=== PATIENT | female | born 1955 | race Two or more races ===

== ENCOUNTER → 2020-02-02 10:04 | Outpatient (BNVA) | payer OTHER, SELFPAY | PROVIDERS: PCP Internal Medicine; Referring Provider Internal Medicine; Visit Provider Hospitalist | DX: J45.30 Mild persistent asthma, uncomplicated (principal); C7A.090 Malignant carcinoid tumor of the bronchus and lung; G47.33 Obstructive sleep apnea (adult) (pediatric); R91.8 Other nonspecific abnormal finding of lung field; Z90.2 Acquired absence of lung [part of] | CPT/HCPCS: 99212 ==

== ENCOUNTER → 2020-03-13 11:39 | Outpatient (BNVA) | payer OTHER, SELFPAY | PROVIDERS: PCP Internal Medicine; Visit Provider Surgery | DX: Z76.89 Persons encountering health services in other specified circumstances (principal) ==

== ENCOUNTER → 2020-03-29 14:35 | Outpatient (BNVA) | payer OTHER, SELFPAY | PROVIDERS: PCP Internal Medicine; Visit Provider Hospitalist | DX: Z76.89 Persons encountering health services in other specified circumstances (principal) ==

== ENCOUNTER → 2020-04-03 14:12 | Outpatient (BNVA) | payer OTHER, SELFPAY | PROVIDERS: PCP Internal Medicine; Visit Provider Nurse Practitioner Gerontology ==

== ENCOUNTER → 2020-04-18 12:47 | Outpatient (BNVA) | payer OTHER, SELFPAY | PROVIDERS: PCP Internal Medicine; Visit Provider Nurse Practitioner ==

== ENCOUNTER 2020-05-07 11:03 | Outpatient (REF) | payer OTHER, SELFPAY ==
--- NOTE | ~2020-05-07 | XR_ITS ---
EXAMINATION: XR BILATERAL HIPS CLINICAL INFORMATION: Right hip pain. COMPARISON: 08/31/2018 sacroiliac joint x-ray. Left hip 03/13/2014. TECHNIQUE: Bilateral hips each 2 views. FINDINGS: RIGHT HIP: Normal alignment. Joint space is maintained. No fracture or dislocation. Visualized right hemipelvis is intact. LEFT HIP: Normal alignment. Mild superior joint space narrowing from mild arthritis. No fracture or dislocation. Visualized left hemipelvis is intact. XR/XR hips SNEHAL min 3V IMPRESSION: 1. No acute findings. 2. Mild left hip joint arthritis.
[2020-05-07 11:52] LABS: MANUAL DIFF FLAG NO
[2020-05-07 12:07] LABS: Basophils Percent Auto 0.4 % (0-2); Eosinophils Absolute Auto 0.4 X10*3/uL (0.0-0.4); Eosinophils Percent Auto 3.3 % (0-4); Hematocrit 38.1 % (37-47); Hemoglobin 12.3 g/dl (12.0-16.0); Imm Gran Abs Auto 0.05 X10*3/uL (0.00-0.03); Imm Gran Pct Auto 0.5 % (0.0-0.4); Lymphocytes Absolute Auto 4.7 X10*3/uL (1.2-4.9); Lymphocytes Percent Auto 43.3 % (20-40); Mean Corpuscular HGB Conc 32.3 g/dl (31.0-35.0); Mean Corpuscular Hemoglobin 27.5 pg (27.0-33.0); Mean Platelet Volume 10.5 fL (9.4-12.3); Monocytes Absolute Auto 0.6 X10*3/uL (0.1-1.2); Monocytes Percent Auto 5.6 % (2-11); Neutrophils Absolute Auto 5.2 X10*3/uL (2.0-8.3); Neutrophils Percent Auto 46.9 % (45-73); Platelet Count 416 X10*3/uL (160-400); Red Blood Count 4.48 X10*6/uL (4.20-5.50)
[2020-05-07 12:21] LABS: Alanine Aminotransferase 21 U/L (0-31); Alkaline Phosphatase 211 U/L (39-117); Anion Gap 14 (12-20); Aspartate Amino Transferase 34 U/L (5-31); Bilirubin Total 0.6 mg/dL (0.0-1.0); Blood Urea Nitrogen 11 mg/dL (9-16); Calcium 8.7 mg/dL (8.4-10.2); Carbon Dioxide 29 mmol/L (22-29); Chloride 100 mmol/L (96-108); Cholesterol 129 mg/dL; Estimated Glomerular Filt Rate > 60; Glucose Fasting 167 mg/dL (60-99); HDL Cholesterol 37 mg/dL; LDL Cholesterol Calculated 77 mg/dl; Potassium 4.1 mmol/L (3.3-5.1); Sodium 139 mmol/L (135-145); Total Protein 7.2 g/dL (6.5-8.0); Triglycerides 76 mg/dL
[2020-05-07 12:46] LABS: TSH reflex Free T4 1.91 uIU/mL (0.32-4.0)
== END 2020-05-07 11:04 | disposition home or self-care (01) ==
LOC: HO.LAB 11:03
PROVIDERS: PCP Internal Medicine; Referring Provider Nurse Practitioner Gerontology; Visit Provider Internal Medicine
DX: E11.65 Type 2 diabetes mellitus with hyperglycemia (principal); I10 Essential (primary) hypertension; M25.551 Pain in right hip; M25.552 Pain in left hip; I25.10 Atherosclerotic heart disease of native coronary artery without angina pectoris; D3A.00 Benign carcinoid tumor of unspecified site; E78.00 Pure hypercholesterolemia, unspecified; E66.01 Morbid (severe) obesity due to excess calories; Z68.41 Body mass index [BMI] 40.0-44.9, adult; Z79.4 Long term (current) use of insulin
CPT/HCPCS: 36415; 73522; 80053; 80061; 84443; 85025

== ENCOUNTER 2020-05-13 11:37 | Outpatient (REF) | payer OTHER, SELFPAY ==
[2020-05-13 12:33] LABS: Creatinine Urine 116.94 mg/dL; Microalbum/Creatinine Ratio Ur 5.1 ug/mg cr
== END 2020-05-13 11:38 | disposition home or self-care (01) ==
LOC: HO.LNP 11:37
PROVIDERS: Nurse Practitioner Gerontology; Visit Provider Internal Medicine
DX: E11.42 Type 2 diabetes mellitus with diabetic polyneuropathy (principal)
CPT/HCPCS: 82043

== ENCOUNTER → 2020-05-16 10:39 | Outpatient (BNVA) | payer OTHER, SELFPAY | PROVIDERS: PCP Internal Medicine; Visit Provider Nurse Practitioner Gerontology | DX: E11.42 Type 2 diabetes mellitus with diabetic polyneuropathy (principal); E11.65 Type 2 diabetes mellitus with hyperglycemia; E66.01 Morbid (severe) obesity due to excess calories; Z68.41 Body mass index [BMI] 40.0-44.9, adult; I10 Essential (primary) hypertension; E78.5 Hyperlipidemia, unspecified; Z79.4 Long term (current) use of insulin | CPT/HCPCS: 99212 ==

== ENCOUNTER → 2020-05-24 10:12 | Outpatient (BNVA) | payer OTHER, SELFPAY | PROVIDERS: PCP Internal Medicine; Visit Provider Nurse Practitioner | DX: Z13.89 Encounter for screening for other disorder (principal) | CPT/HCPCS: 99212 ==

== ENCOUNTER 2020-05-27 13:44 | Outpatient (REF) | payer OTHER, SELFPAY ==
--- NOTE | 2020-05-27 16:23 | PFT_ITS ---
Forced vital capacity is slightly decreased. FEV1, [id number] and MVV are normal. Post bronchodilator therapy, there is no change. Total lung capacity and residual volume normal. Diffusion capacity normal. CONCLUSION: Normal pulmonary function test. There is no evidence of obstructive or restrictive pulmonary disorder. Servando Kelley MD MSB/MODL / [id number]
== END 2020-05-27 13:45 | disposition home or self-care (01) ==
LOC: HO.RESP 13:44
PROVIDERS: PCP Internal Medicine; Visit Provider Hospitalist
DX: J45.40 Moderate persistent asthma, uncomplicated (principal); E11.42 Type 2 diabetes mellitus with diabetic polyneuropathy; G47.33 Obstructive sleep apnea (adult) (pediatric); R07.9 Chest pain, unspecified; R91.8 Other nonspecific abnormal finding of lung field; K21.9 Gastro-esophageal reflux disease without esophagitis; Z79.4 Long term (current) use of insulin; Z79.899 Other long term (current) drug therapy; Z87.891 Personal history of nicotine dependence
CPT/HCPCS: 94060; 94727; 94729; 99212

== ENCOUNTER 2020-05-30 13:59 | Outpatient (REF) | payer OTHER, SELFPAY ==
--- NOTE | ~2020-05-30 | XR_ITS ---
EXAMINATION: XR CHEST CLINICAL INFORMATION: Chest pain unspecified. COMPARISON: Chest radiographs 11/04/2017, 01/08/2017, CT chest noncontrast 05/16/2019. TECHNIQUE: 2 views of the chest were obtained. FINDINGS: There is no pneumothorax or pneumomediastinum. No lobar segmental airspace consolidation. Tapering right cardiophrenic angle is stable from prior studies, likely areolar tissue on CT. There is no lobar or segmental airspace consolidation or groundglass opacity. The costophrenic sulci are clear. The heart is normal in size. The hilar and mediastinal contours are unremarkable. There are degenerative changes again seen thoracic spine. XR/XR chest 2V IMPRESSION: No acute intrathoracic disease.
== END 2020-05-30 14:00 | disposition home or self-care (01) ==
LOC: HO.XRAY 13:59
PROVIDERS: Visit Provider Hospitalist
DX: R07.9 Chest pain, unspecified (principal)
CPT/HCPCS: 71046

== ENCOUNTER → 2020-06-13 09:50 | Outpatient (BNVA) | payer OTHER, SELFPAY | PROVIDERS: PCP Internal Medicine; Visit Provider Nurse Practitioner ==

== ENCOUNTER 2020-07-18 10:37 | Outpatient (REF) | payer MEDICARE, MEDICAID, SELFPAY ==
--- NOTE | ~2020-07-18 | XR_ITS ---
EXAMINATION: XR, KNEE, RIGHT CLINICAL INFORMATION: Pain in right knee, primary osteoarthritis of knee. COMPARISON: Left knee 04/19/2017 TECHNIQUE: 3 views each knee. FINDINGS: RIGHT KNEE: There is mild reduction in medial and patellofemoral compartment joint space with periarticular enthesophytes. Also visualized is a moderate anterosuperior patellar enthesophyte. No abnormal joint effusion or loose body is seen. No bony erosive changes are seen. No visible acute fracture or dislocation. LEFT KNEE: There is mild reduction in medial and patellofemoral compartment joint space with mild periarticular spurring. A moderate-sized anterior superior patellar enthesophyte is seen. No abnormal joint effusion or loose body is seen. There is new focal lucency along the medial patella likely artifact or osteopenia. No acute fracture or dislocation. XR/XR knee RT 3V IMPRESSION: Mild degenerative arthritic changes medial and patellofemoral compartments both knees without any loose bodies. There is no joint effusion. Incidental finding of mild wedge-shaped lucency along the lateral patella on sunrise view, new since previous study 07/13/2016. Question focal osteopenia versus artifact.
--- NOTE | ~2020-07-18 | XR_ITS ---
EXAMINATION: XR, KNEE, RIGHT CLINICAL INFORMATION: Pain in right knee, primary osteoarthritis of knee. COMPARISON: Left knee 04/19/2017 TECHNIQUE: 3 views each knee. FINDINGS: RIGHT KNEE: There is mild reduction in medial and patellofemoral compartment joint space with periarticular enthesophytes. Also visualized is a moderate anterosuperior patellar enthesophyte. No abnormal joint effusion or loose body is seen. No bony erosive changes are seen. No visible acute fracture or dislocation. LEFT KNEE: There is mild reduction in medial and patellofemoral compartment joint space with mild periarticular spurring. A moderate-sized anterior superior patellar enthesophyte is seen. No abnormal joint effusion or loose body is seen. There is new focal lucency along the medial patella likely artifact or osteopenia. No acute fracture or dislocation. XR/XR knee LT 3V IMPRESSION: Mild degenerative arthritic changes medial and patellofemoral compartments both knees without any loose bodies. There is no joint effusion. Incidental finding of mild wedge-shaped lucency along the lateral patella on sunrise view, new since previous study 07/13/2016. Question focal osteopenia versus artifact.
== END 2020-07-18 10:38 | disposition home or self-care (01) ==
LOC: HO.XRAY 10:37
PROVIDERS: PCP Internal Medicine; Visit Provider Internal Medicine
DX: M17.0 Bilateral primary osteoarthritis of knee (principal)
CPT/HCPCS: 73562

== ENCOUNTER → 2020-07-19 10:27 | Outpatient (BNVA) | payer MEDICARE, MEDICAID, SELFPAY | PROVIDERS: PCP Internal Medicine; Visit Provider Surgery | DX: C7A.090 Malignant carcinoid tumor of the bronchus and lung (principal); Z79.899 Other long term (current) drug therapy; Z90.2 Acquired absence of lung [part of] | CPT/HCPCS: 99212 ==

== ENCOUNTER → 2020-07-25 08:38 | Outpatient (BNVA) | payer MEDICARE, MEDICAID, SELFPAY | PROVIDERS: PCP Internal Medicine; Visit Provider Nurse Practitioner Gerontology | CPT/HCPCS: Q3014 ==

== ENCOUNTER 2020-07-31 10:21 | Outpatient (REF) | payer MEDICARE, MEDICAID, SELFPAY ==
[2020-07-31 11:36] LABS: MANUAL DIFF FLAG NO
[2020-07-31 11:49] LABS: Basophils Absolute Auto 0.1 X10*3/uL (0.0-0.2); Basophils Percent Auto 0.5 % (0-2); Eosinophils Absolute Auto 0.5 X10*3/uL (0.0-0.4); Eosinophils Percent Auto 4.5 % (0-4); Hemoglobin 12.7 g/dl (12.0-16.0); Imm Gran Abs Auto 0.03 X10*3/uL (0.00-0.03); Imm Gran Pct Auto 0.3 % (0.0-0.4); Lymphocytes Absolute Auto 4.5 X10*3/uL (1.2-4.9); Lymphocytes Percent Auto 44.6 % (20-40); Mean Corpuscular HGB Conc 31.8 g/dl (31.0-35.0); Mean Corpuscular Volume 85.1 fL (80-98); Mean Platelet Volume 11.5 fL (9.4-12.3); Monocytes Absolute Auto 0.7 X10*3/uL (0.1-1.2); Monocytes Percent Auto 6.5 % (2-11); Neutrophils Absolute Auto 4.4 X10*3/uL (2.0-8.3); Neutrophils Percent Auto 43.6 % (45-73); Platelet Count 379 X10*3/uL (160-400); Red Cell Distribution Width 13.2 % (11.0-16.0); White Blood Count 10.2 X10*3/uL (4.8-10.8)
[2020-07-31 12:07] LABS: Estimated Average Glucose 203 mg/dL; Hemoglobin A1c % 8.7 %
[2020-07-31 13:15] LABS: TSH reflex Free T4 1.54 uIU/mL (0.32-4.0)
[2020-07-31 13:19] LABS: Alanine Aminotransferase 29 U/L (0-31); Alkaline Phosphatase 250 U/L (39-117); Anion Gap 15 (12-20); Aspartate Amino Transferase 46 U/L (5-31); Bilirubin Total 0.5 mg/dL (0.0-1.0); Blood Urea Nitrogen 14 mg/dL (9-16); Calcium 9.3 mg/dL (8.4-10.2); Carbon Dioxide 28 mmol/L (22-29); Chloride 99 mmol/L (96-108); Cholesterol 124 mg/dL; Estimated Glomerular Filt Rate > 60; Glucose Fasting 220 mg/dL (60-99); HDL Cholesterol 33 mg/dL; LDL Cholesterol Calculated 67 mg/dl; Potassium 4.5 mmol/L (3.3-5.1); Sodium 137 mmol/L (135-145); Total Protein 7.1 g/dL (6.5-8.0); Triglycerides 122 mg/dL
[2020-07-31 14:37] LABS: Glucose Urine UA NEG (NEG); Leukocyte Esterase Urine NEG (NEG); Nitrite Urine NEG (NEG); Specific Gravity - Urine 1.015 (1.005-1.025); Urine Blood NEG (NEG); Urine Ketones NEG (NEG); Urine Protein NEG (NEG-TRACE)
[2020-07-31 14:38] LABS: Appearance Urine HAZY; Color Urine YELLOW
[2020-07-31 15:04] LABS: Creatinine Urine 149.27 mg/dL; Microalbum/Creatinine Ratio Ur 5.3 ug/mg cr
== END 2020-07-31 10:22 | disposition home or self-care (01) ==
LOC: HO.LAB 10:21
PROVIDERS: Nurse Practitioner Gerontology; PCP Internal Medicine; Visit Provider Internal Medicine
DX: E11.65 Type 2 diabetes mellitus with hyperglycemia (principal); E11.42 Type 2 diabetes mellitus with diabetic polyneuropathy; Z79.4 Long term (current) use of insulin; I10 Essential (primary) hypertension; I25.10 Atherosclerotic heart disease of native coronary artery without angina pectoris; C7A.090 Malignant carcinoid tumor of the bronchus and lung; K21.9 Gastro-esophageal reflux disease without esophagitis; E78.00 Pure hypercholesterolemia, unspecified; E66.01 Morbid (severe) obesity due to excess calories; Z68.41 Body mass index [BMI] 40.0-44.9, adult
CPT/HCPCS: 36415; 80053; 80061; 81003; 82043; 83036; 84443; 85025

== ENCOUNTER 2020-09-24 12:52 | Outpatient (REF) | payer MEDICARE, MEDICAID, SELFPAY ==
--- NOTE | ~2020-09-24 | CT_ITS ---
EXAMINATION: CT CHEST WITHOUT CONTRAST CLINICAL INFORMATION: Other nonspecific abnormal finding lung field COMPARISON: Previous chest CT scans most recent October 2019 TECHNIQUE: Multidetector volumetric CT imaging of the chest was done. Axial MIP volume rendering provided. Sagittal and coronal reformatted images were obtained. This CT examination was performed using dose optimization techniques as appropriate, variously including the following: *Automated exposure control *Adjustment of mA and/or kV according to patient size (this includes techniques or standardized protocols for targeted exams where dose is matched to indication/reason for exam; i.e. 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 There are postsurgical changes from right middle lobe lobectomy. There are subtle areas of increased peripheral interstitial markings seen in the upper lobes. This is unchanged from previous exam October 2019. There is mild scarring or atelectasis seen in the right lower lobe adjacent to vertebral body bony osteophyte and traction bronchiolectasis that is unchanged. There is scarring or subsegmental atelectasis in the inferior segment of the lingula that is unchanged. There is a 2 mm left upper lobe nodule near the pleural fissure axial image 153 series 5 that is stable. There is a 3 mm peripheral or subpleural right upper lobe nodule axial image 191 series 5 that is stable. The previously identified left lower lobe nodule is not appreciated. The lungs are otherwise clear. No new pulmonary nodule is seen. MEDIASTINUM: The visualized thyroid gland is unremarkable. There are small mediastinal lymph nodes. No enlarged lymph nodes are seen. The heart does not appear enlarged. There is mild coronary artery calcification. There is no pericardial effusion. PLEURA: There is no pleural effusion. No pleural mass or thickening. AXILLA: No lymphadenopathy. UPPER ABDOMEN: Unremarkable. OSSEOUS STRUCTURES: There are degenerative changes of the spine. CT/CT chest wo con IMPRESSION: Limited exam due to artifact from respiratory motion. Stable postsurgical changes from right middle lobe lobectomy. Stable small upper lobe nodules. Previously identified small left lower lobe nodule is not appreciated.
== END 2020-09-24 12:53 | disposition home or self-care (01) ==
LOC: HO.CT 12:52
PROVIDERS: PCP Internal Medicine; Visit Provider Hospitalist
DX: R91.8 Other nonspecific abnormal finding of lung field (principal)
CPT/HCPCS: 71250

== ENCOUNTER 2020-09-27 09:36 | Outpatient (REF) | payer MEDICARE, MEDICAID, SELFPAY ==
[2020-09-27 11:05] LABS: MANUAL DIFF FLAG NO
[2020-09-27 11:13] LABS: Basophils Absolute Auto 0.1 X10*3/uL (0.0-0.2); Basophils Percent Auto 0.7 % (0-2); Eosinophils Absolute Auto 0.5 X10*3/uL (0.0-0.4); Eosinophils Percent Auto 4.8 % (0-4); Hemoglobin 13.3 g/dl (12.0-16.0); Imm Gran Abs Auto 0.04 X10*3/uL (0.00-0.03); Imm Gran Pct Auto 0.4 % (0.0-0.4); Lymphocytes Absolute Auto 3.7 X10*3/uL (1.2-4.9); Lymphocytes Percent Auto 38.3 % (20-40); Mean Corpuscular HGB Conc 31.7 g/dl (31.0-35.0); Mean Corpuscular Hemoglobin 27.3 pg (27.0-33.0); Mean Corpuscular Volume 86.1 fL (80-98); Mean Platelet Volume 10.9 fL (9.4-12.3); Monocytes Absolute Auto 0.5 X10*3/uL (0.1-1.2); Monocytes Percent Auto 5.5 % (2-11); Neutrophils Absolute Auto 4.9 X10*3/uL (2.0-8.3); Neutrophils Percent Auto 50.3 % (45-73); Platelet Count 410 X10*3/uL (160-400); Red Blood Count 4.88 X10*6/uL (4.20-5.50); White Blood Count 9.7 X10*3/uL (4.8-10.8)
[2020-09-27 11:48] LABS: Alanine Aminotransferase 23 U/L (0-31); Albumin Level 4.4 g/dL (3.5-5.0); Alkaline Phosphatase 270 U/L (39-117); Anion Gap 16 (12-20); Aspartate Amino Transferase 46 U/L (5-31); Bilirubin Direct 0.3 mg/dL (0.0-0.5); Bilirubin Total 0.6 mg/dL (0.0-1.0); Blood Urea Nitrogen 10 mg/dL (9-16); Calcium 10.1 mg/dL (8.4-10.2); Carbon Dioxide 29 mmol/L (22-29); Chloride 98 mmol/L (96-108); Estimated Glomerular Filt Rate > 60; Glucose Random 176 mg/dL (60-115); Potassium 4.7 mmol/L (3.3-5.1); Sodium 138 mmol/L (135-145); Total Protein 7.9 g/dL (6.5-8.0)
[2020-09-27 11:57] LABS: Erythrocyte Sedimentation Rate 40 MM/HR (0-20)
[2020-10-05 13:01] LABS: Chromogranin A 525 ng/mL (ADULTS: <311)
== END 2020-09-27 09:37 | disposition home or self-care (01) ==
LOC: HO.LAB 09:36
PROVIDERS: PCP Internal Medicine; Visit Provider Hospitalist
DX: G47.33 Obstructive sleep apnea (adult) (pediatric) (principal); J45.40 Moderate persistent asthma, uncomplicated; R07.1 Chest pain on breathing; C7A.090 Malignant carcinoid tumor of the bronchus and lung
CPT/HCPCS: 36415; 80048; 80076; 85025; 85652; 86316; 99212

== ENCOUNTER → 2020-11-08 10:21 | Outpatient (BNVA) | payer MEDICARE, MEDICAID, SELFPAY | PROVIDERS: PCP Internal Medicine; Visit Provider Surgery | DX: C7A.090 Malignant carcinoid tumor of the bronchus and lung (principal); Z79.899 Other long term (current) drug therapy; Z87.891 Personal history of nicotine dependence; Z90.2 Acquired absence of lung [part of] | CPT/HCPCS: 99212 ==

== ENCOUNTER 2020-11-12 11:41 | Outpatient (REF) | payer MEDICARE, SELFPAY ==
[2020-11-12 12:41] LABS: Alanine Aminotransferase 32 U/L (0-31); Albumin Level 4.2 g/dL (3.5-5.0); Alkaline Phosphatase 250 U/L (39-117); Anion Gap 12 (12-20); Aspartate Amino Transferase 53 U/L (5-31); Blood Urea Nitrogen 11 mg/dL (9-16); Calcium 9.3 mg/dL (8.4-10.2); Carbon Dioxide 30 mmol/L (22-29); Chloride 101 mmol/L (96-108); Cholesterol 124 mg/dL; Estimated Glomerular Filt Rate > 60; Glucose Fasting 163 mg/dL (60-99); HDL Cholesterol 38 mg/dL; LDL Cholesterol Calculated 73 mg/dl; Potassium 4.5 mmol/L (3.3-5.1); Sodium 138 mmol/L (135-145); Total Protein 7.5 g/dL (6.5-8.0); Triglycerides 66 mg/dL
[2020-11-12 13:01] LABS: Glucose Urine UA NEG (NEG); Leukocyte Esterase Urine 1+ (NEG); Nitrite Urine NEG (NEG); Specific Gravity - Urine <= 1.005 (1.005-1.025); UACC Culture Trigger YES; Urine Blood NEG (NEG); Urine Ketones NEG (NEG); Urine Protein NEG (NEG-TRACE)
[2020-11-12 13:10] LABS: Appearance Urine HAZY; Color Urine YELLOW
[2020-11-12 13:12] LABS: Bacteria Urine TRACE /LPF; RBC Urine 0-2 /HPF (0); Squamous Epithelial Cell Urine 3+ /LPF
[2020-11-12 13:44] LABS: Creatinine Urine 78.97 mg/dL; Microalbum/Creatinine Ratio Ur 6.3 ug/mg cr
[2020-11-12 14:31] LABS: Estimated Average Glucose 192 mg/dL; Hemoglobin A1c % 8.3 %
== END 2020-11-12 11:42 | disposition home or self-care (01) ==
LOC: HO.LAB 11:41
PROVIDERS: Absent Provider Internal Medicine; PCP Internal Medicine; Visit Provider Nurse Practitioner Gerontology
DX: E11.42 Type 2 diabetes mellitus with diabetic polyneuropathy (principal); E11.65 Type 2 diabetes mellitus with hyperglycemia; Z79.4 Long term (current) use of insulin
CPT/HCPCS: 36415; 80053; 80061; 81001; 81003; 82043; 83036; 87086

== ENCOUNTER 2020-11-20 09:16 | Outpatient (REF) | payer MEDICARE, SELFPAY ==
--- NOTE | ~2020-11-20 | XR_ITS ---
EXAMINATION: XR SHOULDER, LEFT CLINICAL INFORMATION: Left shoulder pain. COMPARISON: Left shoulder radiographs dated 11/02/2013. TECHNIQUE: AP external rotation, Grashey, scapular Y, and axillary views of the left shoulder. FINDINGS: Inferior subluxation of the humeral head, which may be related to capsular laxity. Findings are similar when compared to the prior examination. No acute fracture. Acromioclavicular marginal osteophytes, slightly increased. Glenohumeral joint space narrowing with subchondral sclerosis, subchondral cystic change, and marginal osteophytes, slightly progressed. Lobulated calcification associated with the distal supraspinatus tendon measuring up to 2.1 cm and increased when compared to the prior examination. XR/XR shoulder LT min 2V IMPRESSION: Moderate acromioclavicular and glenohumeral osteoarthritis, slightly progressed. Prominent supraspinatus calcific tendinitis, increased when compared to the prior examination.
== END 2020-11-20 09:17 | disposition home or self-care (01) ==
LOC: HO.XRAY 09:16
PROVIDERS: PCP Internal Medicine; Visit Provider Internal Medicine
DX: M25.512 Pain in left shoulder (principal)
CPT/HCPCS: 73030

== ENCOUNTER → 2020-12-03 11:00 | Outpatient (BNVA) | payer MEDICARE, SELFPAY | PROVIDERS: PCP Internal Medicine; Visit Provider Hospitalist | DX: G47.33 Obstructive sleep apnea (adult) (pediatric) (principal); J45.40 Moderate persistent asthma, uncomplicated; C7A.090 Malignant carcinoid tumor of the bronchus and lung | CPT/HCPCS: 99212 ==

== ENCOUNTER → 2020-12-30 11:06 | Outpatient (BNVA) | payer MEDICARE, SELFPAY | PROVIDERS: PCP Internal Medicine; Visit Provider Nurse Practitioner | DX: K59.04 Chronic idiopathic constipation (principal); K21.9 Gastro-esophageal reflux disease without esophagitis; Z98.890 Other specified postprocedural states | CPT/HCPCS: Q3014 ==

== ENCOUNTER → 2021-01-14 07:13 | Outpatient (BNVA) | payer MEDICARE, SELFPAY | PROVIDERS: PCP Internal Medicine; Visit Provider Nurse Practitioner Gerontology | DX: E11.42 Type 2 diabetes mellitus with diabetic polyneuropathy (principal); E11.65 Type 2 diabetes mellitus with hyperglycemia; E78.5 Hyperlipidemia, unspecified; I10 Essential (primary) hypertension; E66.01 Morbid (severe) obesity due to excess calories; Z68.41 Body mass index [BMI] 40.0-44.9, adult; Z79.4 Long term (current) use of insulin | CPT/HCPCS: 82947; 99212 ==

== ENCOUNTER → 2021-01-24 10:52 | Outpatient (BNVA) | payer MEDICARE, MEDICAID, SELFPAY | PROVIDERS: PCP Internal Medicine; Visit Provider Orthopaedic Surgery | DX: M19.012 Primary osteoarthritis, left shoulder (principal); M17.0 Bilateral primary osteoarthritis of knee; E11.42 Type 2 diabetes mellitus with diabetic polyneuropathy | CPT/HCPCS: 99212 ==

== ENCOUNTER 2021-01-30 10:32 | Outpatient (REF) | payer MEDICARE, SELFPAY ==
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
== END 2021-01-30 10:33 | disposition home or self-care (01) ==
LOC: HO.XRAY 10:32
PROVIDERS: PCP Internal Medicine; Visit Provider Nurse Practitioner Acute Care
DX: M54.2 Cervicalgia (principal); E11.42 Type 2 diabetes mellitus with diabetic polyneuropathy; E66.01 Morbid (severe) obesity due to excess calories; Z68.41 Body mass index [BMI] 40.0-44.9, adult; Z87.891 Personal history of nicotine dependence
CPT/HCPCS: 72052; 73000; 73060

== ENCOUNTER 2021-02-13 09:37 | Outpatient (REF) | payer MEDICARE, SELFPAY ==
[2021-02-13 09:51] LABS: MANUAL DIFF FLAG NO
[2021-02-13 10:16] LABS: Basophils Absolute Auto 0.1 X10*3/uL (0.0-0.2); Basophils Percent Auto 0.6 % (0-2); Eosinophils Absolute Auto 0.5 X10*3/uL (0.0-0.4); Eosinophils Percent Auto 4.5 % (0-4); Hematocrit 38.8 % (37.0-47.0); Hemoglobin 12.5 g/dl (12.0-16.0); Imm Gran Abs Auto 0.03 X10*3/uL (0.00-0.03); Imm Gran Pct Auto 0.3 % (0.0-0.4); Lymphocytes Absolute Auto 4.6 X10*3/uL (1.2-4.9); Lymphocytes Percent Auto 42.6 % (20-40); Mean Corpuscular HGB Conc 32.2 g/dl (31.0-35.0); Mean Corpuscular Hemoglobin 27.7 pg (27.0-33.0); Mean Platelet Volume 10.6 fL (9.4-12.3); Monocytes Absolute Auto 0.7 X10*3/uL (0.1-1.2); Monocytes Percent Auto 6.7 % (2-11); Neutrophils Absolute Auto 4.9 x10*3/uL (2.0-8.3); Neutrophils Percent Auto 45.3 % (45-73); Platelet Count 329 X10*3/uL (160-400); Red Blood Count 4.51 X10*6/uL (4.20-5.50); Red Cell Distribution Width 13.6 % (11.0-16.0); White Blood Count 10.9 X10*3/uL (4.8-10.8)
[2021-02-13 10:25] LABS: Estimated Average Glucose 177 mg/dL; Hemoglobin A1c % 7.8 %
[2021-02-13 10:39] LABS: Appearance Urine HAZY; Color Urine ORANGE; Glucose Urine UA NEG (NEG); Leukocyte Esterase Urine 1+ (NEG); Nitrite Urine NEG (NEG); Specific Gravity - Urine 1.015 (1.005-1.025); UACC Culture Trigger YES; Urine Blood NEG (NEG); Urine Ketones NEG (NEG); Urine Protein NEG (NEG-TRACE)
[2021-02-13 10:50] LABS: Alanine Aminotransferase 20 U/L (0-31); Alkaline Phosphatase 198 U/L (39-117); Anion Gap 14 (12-20); Aspartate Amino Transferase 41 U/L (5-31); Bilirubin Total 0.9 mg/dL (0.0-1.0); Blood Urea Nitrogen 16 mg/dL (9-16); Calcium 9.7 mg/dL (8.4-10.2); Carbon Dioxide 29 mmol/L (22-29); Chloride 102 mmol/L (96-108); Cholesterol 121 mg/dL; Estimated Glomerular Filt Rate > 60; Glucose Fasting 145 mg/dL (60-99); HDL Cholesterol 33 mg/dL; LDL Cholesterol Calculated 72 mg/dl; Potassium 4.4 mmol/L (3.3-5.1); Sodium 141 mmol/L (135-145); Total Protein 7.3 g/dL (6.5-8.0); Triglycerides 84 mg/dL
[2021-02-13 10:57] LABS: Bacteria Urine 1+ /LPF; Mucus Urine 1+ /LPF; RBC Urine 0 /HPF (0); Squamous Epithelial Cell Urine 2+ /LPF
[2021-02-13 11:06] LABS: Creatinine Urine 137.47 mg/dL; Microalbum/Creatinine Ratio Ur 4.3 ug/mg cr
[2021-02-13 11:12] LABS: TSH reflex Free T4 1.84 uIU/mL (0.32-4.0)
== END 2021-02-13 09:38 | disposition home or self-care (01) ==
LOC: HO.LAB 09:37
PROVIDERS: PCP Internal Medicine; Visit Provider Internal Medicine
DX: E78.00 Pure hypercholesterolemia, unspecified (principal); E11.9 Type 2 diabetes mellitus without complications; E55.9 Vitamin D deficiency, unspecified; I10 Essential (primary) hypertension
CPT/HCPCS: 36415; 80053; 80061; 81001; 81003; 82043; 82306; 83036; 84443; 85025; 87086

== ENCOUNTER → 2021-02-18 08:07 | Outpatient (BNVA) | payer MEDICARE, SELFPAY | PROVIDERS: PCP Internal Medicine; Visit Provider Nurse Practitioner Gerontology | DX: G47.33 Obstructive sleep apnea (adult) (pediatric) (principal); J45.40 Moderate persistent asthma, uncomplicated; C7A.090 Malignant carcinoid tumor of the bronchus and lung; E11.42 Type 2 diabetes mellitus with diabetic polyneuropathy; E11.65 Type 2 diabetes mellitus with hyperglycemia; E78.5 Hyperlipidemia, unspecified; E66.01 Morbid (severe) obesity due to excess calories; I10 Essential (primary) hypertension; Z79.4 Long term (current) use of insulin; Z68.41 Body mass index [BMI] 40.0-44.9, adult | CPT/HCPCS: 99212; Q3014 ==

== ENCOUNTER 2021-02-24 11:10 | Outpatient (RCR) | payer MEDICARE, SELFPAY ==
--- NOTE | 2021-02-24 14:21 | MHC.PT.EP ---
[facility] [place] Office [place] Office [place] Office [address]ivel Davis [address] [phone] F: [phone] F: [phone] F: [phone] F: [phone] Physical Therapy Plan of Care Date of Evaluation: Date of Surgery: n/a Diagnosis: OA of L shoulder and B knee Assessment: Patient is a 65 year old female presenting to PT with complaints of pain in her B knees L>R. Pt reports onset of pain began about a year ago due to insidious onset. She presents today with impairments in pain, knee ROM, and knee strength. Pt's current occupation is none, with baseline physical activities including ambulation, ADLs, squatting. 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 Clinical presentation today is most consistent with signs and sx associated with L knee pain and pt will benefit from skilled PT to address the following problems and impairments noted upon evaluation: pain, knee ROM, and knee strength. These problems limit the patient with the following functional activities: ambulation, squatting, and ADLs. The prescribed treatment plan of care is medically necessary. Co-morbidities of hx cancer - carcinoid tumor, COPD, CAD, HTN, T2DM were identified and taken into considerations of plan of care. Pt was educated on HEP, role of PT, prognosis, POC. Frequency and Duration: The patient will be seen 2 x week x 4 weeks Short Term Goals: Pt will demonstrate compliance with use of her AD in 2 visits for improved safety with ambulation. Pt will demonstrate improved L knee ROM to equal B in 2 weeks. Pt will demonstrate improved knee strength by 1/3 MMT in 2 weeks. Senior Care Goals: Pt will demonstrate self reports of feeling more stable when ambulating with AD in 4 weeks for decreased risk of falls. Pt will demonstrate improved LEFI score by 9 points in 4 weeks for improved functional mobility. Pt will demonstrate self reports of improved ability to squat in 4 weeks for improved tolerance to ADLs. Treatment Plan: Modalities to reduce pain, spasms and effusion. Manual therapy to restore motion and function. Therapeutic exercise to improve strength and flexibility. Neuromuscular re-education for posture and balance. Therapeutic activities to return to functional activities of daily living. Electronically signed by: Cathy Antunez, PT, DPT, ATC Please sign and return to therapist. Thank you for your referral.
--- NOTE | 2021-05-13 13:48 | MHC.PT.DC ---
[facility] [place] Office [place] Office [place] Office [address] [phone] F: [phone] F: [phone] F: [phone] F: [phone] Physical Therapy Discharge Report Diagnosis: OA of L shoulder and B knee Date of Surgery: n/a Date of Evaluation: 02/24/21 Date of Discharge: 05/13/21 Treatments to Date: 1 Cancellations to Date: 2 No Shows to Date: 3 Discharge Status: Visit Non-compliance Discharge Summary: Pt has failed to comply with [facility] attendance policy and no showed/cancelled all appts since eval. Her current status is unknown at this time. Electronically signed by: Cathy Antunez, PT, DPT, ATC Please sign and return to therapist. Thank you for your referral.
== END 2021-05-13 13:48 | disposition home or self-care (01) ==
LOC: HO.PT 11:10
PROVIDERS: PCP Internal Medicine; Visit Provider Orthopaedic Surgery
DX: M17.0 Bilateral primary osteoarthritis of knee (principal)
CPT/HCPCS: 97162

== ENCOUNTER → 2021-04-15 11:12 | Outpatient (BNVA) | payer OTHER, MEDICAID, SELFPAY | PROVIDERS: PCP Internal Medicine; Visit Provider Hospitalist ==

== ENCOUNTER 2021-04-16 09:10 | Outpatient (REF) | payer MEDICARE, SELFPAY ==
--- NOTE | ~2021-04-16 | XR_ITS ---
EXAMINATION: XR CHEST CLINICAL INFORMATION: Chest pain COMPARISON: None TECHNIQUE: 2 views of the chest were obtained. FINDINGS: The lungs are well-expanded and clear of acute process. The heart size and pulmonary vascularity is normal. There is mild spondylosis dorsal spine. No lytic process. XR/XR chest 2V IMPRESSION: Unremarkable chest exam.
== END 2021-04-16 09:11 | disposition home or self-care (01) ==
LOC: HO.XRAY 09:10
PROVIDERS: PCP Internal Medicine; Visit Provider Hospitalist
DX: R07.9 Chest pain, unspecified (principal)
CPT/HCPCS: 71046

== ENCOUNTER → 2021-05-07 09:18 | Outpatient (BNVA) | payer MEDICARE, SELFPAY | PROVIDERS: PCP Internal Medicine; Visit Provider Hospitalist | DX: J45.40 Moderate persistent asthma, uncomplicated (principal); R91.8 Other nonspecific abnormal finding of lung field; G47.33 Obstructive sleep apnea (adult) (pediatric); C7A.090 Malignant carcinoid tumor of the bronchus and lung; G89.12 Acute post-thoracotomy pain | CPT/HCPCS: 99212 ==

== ENCOUNTER 2021-06-04 06:40 | Outpatient (REF) | payer MEDICARE, SELFPAY ==
[2021-06-04 07:32] LABS: Basophils Absolute Auto 0.1 X10*3/uL (0.0-0.2); Basophils Percent Auto 0.8 % (0-2); Eosinophils Absolute Auto 0.4 X10*3/uL (0.0-0.4); Eosinophils Percent Auto 3.9 % (0-4); Hematocrit 38.7 % (37.0-47.0); Hemoglobin 12.4 g/dl (12.0-16.0); Imm Gran Abs Auto 0.04 X10*3/uL (0.00-0.03); Imm Gran Pct Auto 0.4 % (0.0-0.4); Lymphocytes Absolute Auto 5.5 X10*3/uL (1.2-4.9); Lymphocytes Percent Auto 49.1 % (20-40); MANUAL DIFF FLAG SCAN; Mean Corpuscular Hemoglobin 27.5 pg (27.0-33.0); Mean Corpuscular Volume 85.8 fL (80.0-98.0); Mean Platelet Volume 10.6 fL (9.4-12.3); Monocytes Absolute Auto 0.7 X10*3/uL (0.1-1.2); Monocytes Percent Auto 6.1 % (2-11); Neutrophils Absolute Auto 4.4 x10*3/uL (2.0-8.3); Neutrophils Percent Auto 39.7 % (45-73); Platelet Count 380 X10*3/uL (160-400); Red Blood Count 4.51 X10*6/uL (4.20-5.50); Red Cell Distribution Width 13.5 % (11.0-16.0); SCAN SMEAR FLAG 1; White Blood Count 11.2 X10*3/uL (4.8-10.8)
[2021-06-04 07:38] LABS: Estimated Average Glucose 180 mg/dL; Hemoglobin A1c % 7.9 %
[2021-06-04 07:50] LABS: SLIDE REVIEW VERIFIED
[2021-06-04 08:03] LABS: Alanine Aminotransferase 22 U/L (0-31); Albumin Level 4.1 g/dL (3.5-5.0); Alkaline Phosphatase 191 U/L (39-117); Anion Gap 14 (12-20); Aspartate Amino Transferase 41 U/L (5-31); Bilirubin Total 0.9 mg/dL (0.0-1.0); Blood Urea Nitrogen 13 mg/dL (9-16); Calcium 9.5 mg/dL (8.4-10.2); Carbon Dioxide 28 mmol/L (22-29); Chloride 98 mmol/L (96-108); Cholesterol 125 mg/dL; Estimated Glomerular Filt Rate > 60; Glucose Fasting 130 mg/dL (60-99); HDL Cholesterol 35 mg/dL; LDL Cholesterol Calculated 72 mg/dl; Potassium 4.3 mmol/L (3.3-5.1); Sodium 136 mmol/L (135-145); Total Protein 7.2 g/dL (6.5-8.0); Triglycerides 91 mg/dL
[2021-06-04 08:26] LABS: TSH reflex Free T4 4.28 uIU/mL (0.32-4.0)
[2021-06-04 09:27] LABS: Folate 18.5 ng/mL (> or = 4.0); Vitamin B12 247 pg/mL (200-900)
[2021-06-04 11:25] LABS: Appearance Urine CLEAR; Color Urine YELLOW; Glucose Urine UA NEG (NEG); Leukocyte Esterase Urine NEG (NEG); Nitrite Urine NEG (NEG); PH 5.5 (5.0-8.0); Specific Gravity - Urine 1.015 (1.005-1.025); Urine Blood NEG (NEG); Urine Ketones NEG (NEG); Urine Protein NEG (NEG-TRACE)
[2021-06-04 12:08] LABS: Creatinine Urine 88.59 mg/dL; Microalbumin Urine < 5.0 mg/L
[2021-06-04 12:40] LABS: Free T4 (Free Thyroxine) 1.05 ng/dL (0.71-1.85)
[2021-06-05 14:15] LABS: Vitamin D 25-OH Total 20.4 ng/mL (>30)
== END 2021-06-04 06:41 | disposition home or self-care (01) ==
LOC: HO.LAB 06:40
PROVIDERS: PCP Internal Medicine; Visit Provider Internal Medicine
DX: E78.00 Pure hypercholesterolemia, unspecified (principal); E55.9 Vitamin D deficiency, unspecified; E53.8 Deficiency of other specified B group vitamins; I10 Essential (primary) hypertension; E11.9 Type 2 diabetes mellitus without complications
CPT/HCPCS: 36415; 80053; 80061; 81003; 82043; 82306; 82607; 82746; 83036; 84439; 84443; 85025

== ENCOUNTER 2021-08-29 10:39 | Outpatient (REF) | payer OTHER, SELFPAY ==
--- NOTE | ~2021-08-29 | CT_ITS ---
EXAMINATION: CT CHEST WITHOUT CONTRAST CLINICAL INFORMATION: Malignant carcinoid tumor of the bronchus. COMPARISON: Chest x-ray 04/16/2021. CT chest 09/24/2020. TECHNIQUE: Multidetector volumetric CT imaging of the chest was done. Axial MIP volume rendering provided. Sagittal and coronal reformatted images were obtained. This CT examination was performed using dose optimization techniques as appropriate, variously including the following: *Automated exposure control *Adjustment of mA and/or kV according to patient size (this includes techniques or standardized protocols for targeted exams where dose is matched to indication/reason for exam; i.e. extremities or head) *Use of iterative reconstruction technique DLP: 412 mGy-cm. FINDINGS: The exam is limited due to breathing artifact. 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 LUNGS: The lungs are well expanded with mild atelectatic changes in the lingula. There is mild fine reticular interstitial thickening subpleural right upper lobe. There is a 2 mm nodule left upper lobe adjacent to the superior major fissure axial image 196/6, a 2 mm nodular pleural-based nodule right upper lobe axial image 246/6. No additional pulmonary nodules visualized. There are right middle lobe lobectomy changes, stable. MEDIASTINUM: The thyroid lobes are symmetrical and and normal. The central trachea and the bronchi are widely patent. Heart size is enlarged. The great vessels are normal caliber. There is no pericardial effusion. No abnormal-sized mediastinal or hilar lymph nodes seen. PLEURA: There is no pleural effusion. No pleural mass or thickening. AXILLA: Small shotty lymph nodes are seen in the axilla. The chest wall is unremarkable. UPPER ABDOMEN: Visualized liver, spleen, pancreas and bilateral adrenal glands unremarkable. OSSEOUS STRUCTURES: There is moderate spondylosis dorsal spine. No lytic or sclerotic process seen. CT/CT chest wo con IMPRESSION: Exam is significantly limited due to breathing artifact. The lung nodules are stable. Mild atelectatic changes seen in the lingula and subpleural reticular interstitial prominence right upper lobe are also stable. Fleischner guidelines were followed.
== END 2021-08-29 10:40 | disposition home or self-care (01) ==
LOC: HO.CT 10:39
PROVIDERS: PCP Internal Medicine; Visit Provider Hospitalist
DX: C7A.090 Malignant carcinoid tumor of the bronchus and lung (principal)
CPT/HCPCS: 71250

== ENCOUNTER 2021-09-11 09:36 | Outpatient (REF) | payer OTHER, SELFPAY ==
[2021-09-11 09:50] LABS: MANUAL DIFF FLAG NO
[2021-09-11 10:58] LABS: Basophils Absolute Auto 0.1 X10*3/uL (0.0-0.2); Basophils Percent Auto 0.8 % (0-2); Eosinophils Absolute Auto 0.5 X10*3/uL (0.0-0.4); Hematocrit 37.6 % (37.0-47.0); Hemoglobin 11.9 g/dl (12.0-16.0); Imm Gran Abs Auto 0.04 X10*3/uL (0.00-0.03); Imm Gran Pct Auto 0.4 % (0.0-0.4); Lymphocytes Absolute Auto 4.3 X10*3/uL (1.2-4.9); Lymphocytes Percent Auto 46.7 % (20-40); Mean Corpuscular HGB Conc 31.6 g/dl (31.0-35.0); Mean Corpuscular Volume 85.3 fL (80.0-98.0); Mean Platelet Volume 11.2 fL (9.4-12.3); Monocytes Absolute Auto 0.7 X10*3/uL (0.1-1.2); Monocytes Percent Auto 7.6 % (2-11); Neutrophils Absolute Auto 3.6 x10*3/uL (2.0-8.3); Neutrophils Percent Auto 39.5 % (45-73); Platelet Count 335 X10*3/uL (160-400); Red Blood Count 4.41 X10*6/uL (4.20-5.50); Red Cell Distribution Width 13.9 % (11.0-16.0); White Blood Count 9.2 X10*3/uL (4.8-10.8)
[2021-09-11 11:10] LABS: Estimated Average Glucose 174 mg/dL; Hemoglobin A1c % 7.7 %
[2021-09-11 11:18] LABS: Appearance Urine HAZY; Color Urine YELLOW; Glucose Urine UA NEG (NEG); Leukocyte Esterase Urine NEG (NEG); Nitrite Urine NEG (NEG); Urine Blood NEG (NEG); Urine Ketones NEG (NEG); Urine Protein NEG (NEG-TRACE)
[2021-09-11 11:35] LABS: Alanine Aminotransferase 21 U/L (0-31); Albumin Level 3.9 g/dL (3.5-5.0); Alkaline Phosphatase 220 U/L (39-117); Anion Gap 12 (12-20); Aspartate Amino Transferase 46 U/L (5-31); Bilirubin Total 0.6 mg/dL (0.0-1.0); Blood Urea Nitrogen 13 mg/dL (9-16); Calcium 8.9 mg/dL (8.4-10.2); Carbon Dioxide 28 mmol/L (22-29); Chloride 101 mmol/L (96-108); Cholesterol 133 mg/dL; Estimated Glomerular Filt Rate > 60; Glucose Fasting 159 mg/dL (60-99); HDL Cholesterol 39 mg/dL; LDL Cholesterol Calculated 76 mg/dl; Potassium 4.3 mmol/L (3.3-5.1); Sodium 137 mmol/L (135-145); Total Protein 6.9 g/dL (6.5-8.0); Triglycerides 93 mg/dL
[2021-09-11 11:44] LABS: Vitamin D 25-OH Total 49.5 ng/mL (>30)
[2021-09-11 12:01] LABS: Creatinine Urine 111.86 mg/dL; Microalbumin Urine < 5.0 mg/L
== END 2021-09-11 09:37 | disposition home or self-care (01) ==
LOC: HO.LAB 09:36
PROVIDERS: PCP Internal Medicine; Visit Provider Internal Medicine
DX: E55.9 Vitamin D deficiency, unspecified (principal); I10 Essential (primary) hypertension; E11.9 Type 2 diabetes mellitus without complications; E78.00 Pure hypercholesterolemia, unspecified
CPT/HCPCS: 36415; 80053; 80061; 81003; 82043; 82306; 83036; 85025

== ENCOUNTER → 2021-11-07 10:05 | Outpatient (BNVA) | payer MEDICARE, MEDICAID, SELFPAY | PROVIDERS: PCP Internal Medicine; Visit Provider Surgery | DX: C7A.090 Malignant carcinoid tumor of the bronchus and lung (principal); Z90.2 Acquired absence of lung [part of] | CPT/HCPCS: 99212 ==

== ENCOUNTER → 2021-11-10 14:34 | Outpatient (BNVA) | payer MEDICARE, MEDICAID, SELFPAY | PROVIDERS: PCP Internal Medicine; Visit Provider Hospitalist | DX: G47.33 Obstructive sleep apnea (adult) (pediatric) (principal); J45.40 Moderate persistent asthma, uncomplicated; C7A.090 Malignant carcinoid tumor of the bronchus and lung; G89.12 Acute post-thoracotomy pain | CPT/HCPCS: 99212 ==

== ENCOUNTER 2022-01-20 09:45 | Outpatient (REF) | payer MEDICARE, MEDICAID, SELFPAY ==
[2022-01-20 10:42] LABS: Basophils Absolute Auto 0.1 X10*3/uL (0.0-0.2); Basophils Percent Auto 0.9 % (0-2); Eosinophils Absolute Auto 0.5 X10*3/uL (0.0-0.4); Eosinophils Percent Auto 4.8 % (0-4); Hematocrit 39.5 % (37.0-47.0); Hemoglobin 12.5 g/dl (12.0-16.0); Imm Gran Abs Auto 0.04 X10*3/uL (0.00-0.03); Imm Gran Pct Auto 0.4 % (0.0-0.4); Lymphocytes Percent Auto 48.5 % (20-40); MANUAL DIFF FLAG SCAN; Mean Corpuscular HGB Conc 31.6 g/dl (31.0-35.0); Mean Corpuscular Hemoglobin 26.9 pg (27.0-33.0); Mean Corpuscular Volume 84.9 fL (80.0-98.0); Monocytes Absolute Auto 0.7 X10*3/uL (0.1-1.2); Monocytes Percent Auto 6.6 % (2-11); Neutrophils Percent Auto 38.8 % (45-73); Platelet Count 359 X10*3/uL (160-400); Red Blood Count 4.65 X10*6/uL (4.20-5.50); Red Cell Distribution Width 13.8 % (11.0-16.0); SCAN SMEAR FLAG 1; White Blood Count 10.3 X10*3/uL (4.8-10.8)
[2022-01-20 11:13] LABS: Estimated Average Glucose 183 mg/dL
[2022-01-20 11:14] LABS: SLIDE REVIEW VERIFIED
[2022-01-20 11:25] LABS: Alanine Aminotransferase 22 U/L (0-31); Albumin Level 3.9 g/dL (3.5-5.0); Alkaline Phosphatase 182 U/L (39-117); Anion Gap 13 (12-20); Aspartate Amino Transferase 43 U/L (5-31); Bilirubin Total 0.7 mg/dL (0.0-1.0); Blood Urea Nitrogen 11 mg/dL (9-16); Calcium 9.4 mg/dL (8.4-10.2); Carbon Dioxide 30 mmol/L (22-29); Chloride 99 mmol/L (96-108); Cholesterol 125 mg/dL; Estimated Glomerular Filt Rate > 60; Glucose Fasting 147 mg/dL (60-99); HDL Cholesterol 38 mg/dL; LDL Cholesterol Calculated 69 mg/dl; Potassium 4.2 mmol/L (3.3-5.1); Sodium 138 mmol/L (135-145); TSH reflex Free T4 3.12 uIU/mL (0.32-4.0); Total Protein 7.1 g/dL (6.5-8.0); Triglycerides 90 mg/dL; Vitamin D 25-OH Total 55.7 ng/mL (>30)
[2022-01-20 12:14] LABS: Appearance Urine Clear; Color Urine Yellow; Glucose Urine UA Negative (Negative); Leukocyte Esterase Urine Negative (Negative); Nitrite Urine Negative (Negative); Specific Gravity - Urine 1.015 (1.005-1.025); Urine Blood Negative (Negative); Urine Ketones Negative (Negative); Urine Protein Negative (Neg-Trace)
[2022-01-20 13:03] LABS: Creatinine Urine 110.57 mg/dL; Microalbumin Urine < 5.0 mg/L
== END 2022-01-20 09:46 | disposition home or self-care (01) ==
LOC: HO.LAB 09:45
PROVIDERS: PCP Internal Medicine; Visit Provider Internal Medicine
DX: E11.9 Type 2 diabetes mellitus without complications (principal); E55.9 Vitamin D deficiency, unspecified; I10 Essential (primary) hypertension; E78.00 Pure hypercholesterolemia, unspecified
CPT/HCPCS: 36415; 80053; 80061; 81003; 82043; 82306; 83036; 84443; 85025

== ENCOUNTER 2022-01-22 13:06 | Outpatient (REF) | payer MEDICARE, MEDICAID, SELFPAY ==
--- NOTE | ~2022-01-22 | XR_ITS ---
EXAMINATION: XR KNEE, LEFT CLINICAL INFORMATION: Left knee pain. COMPARISON: 07/18/2020 TECHNIQUE: Four views of the left knee. FINDINGS: There is no evidence of acute fracture or dislocation of the left knee. There is again noted to be narrowing of the medial joint space compartment with marginal spurring and sclerosis. The lateral joint space compartment appears maintained. There is degenerative change of the patellofemoral joint with marginal spurring and narrowing of the lateral facet space. Patella spurs at insertion of the quadriceps tendon is noted. Prominent vascular calcifications are seen. No significant effusion is seen on the provided imaging. XR/XR knee LT 3V IMPRESSION: Significant degenerative joint disease seen involving the medial joint space compartment and patellofemoral joint without significant change from 07/18/2020.
--- NOTE | ~2022-01-22 | XR_ITS ---
EXAMINATION: XR BILATERAL HIPS WITH AP PELVIS CLINICAL INFORMATION: Right hip pain COMPARISON: 05/07/2020 TECHNIQUE: AP view of the pelvis and single views of each hip were obtained. FINDINGS: The bones and soft tissues are normal. No fracture. Sacroiliac and hip joints are normal. Pubic symphysis is normal. No abnormal soft tissue calcifications. XR/XR hips SNEHAL min 3V IMPRESSION: Normal pelvis and hips.
== END 2022-01-22 13:07 | disposition home or self-care (01) ==
LOC: HO.XRAY 13:06
PROVIDERS: PCP Internal Medicine; Visit Provider Internal Medicine
DX: K31.84 Gastroparesis (principal); K59.04 Chronic idiopathic constipation; K21.9 Gastro-esophageal reflux disease without esophagitis; R19.7 Diarrhea, unspecified; M25.562 Pain in left knee; M25.551 Pain in right hip; M25.552 Pain in left hip
CPT/HCPCS: 73522; 73562; 99212

== ENCOUNTER 2022-02-17 12:00 | Outpatient (REF) | payer MEDICARE, MEDICAID, SELFPAY ==
--- NOTE | ~2022-02-17 | XR_ITS ---
EXAMINATION: XR KNEE, RIGHT XR TIBIA AND FIBULA, RIGHT CLINICAL INFORMATION: Pain in right knee. COMPARISON: None TECHNIQUE: 2 views right tibia and fibula and 3 views right knee. FINDINGS: RIGHT TIBIA AND FIBULA: There is no visible acute fracture, dislocation or subluxation seen. No bony erosive changes. The soft tissues are normal. RIGHT KNEE: There is mild loss of patellofemoral and medial compartment joint space with moderate superior patellar spurring. No loose bodies or bony erosive changes seen. There is mild suprapatellar joint effusion. There is a moderate size superior patellar enthesophyte. XR/XR tibia fibula RT 2V IMPRESSION: 1. Unremarkable right tibia and fibula exam. 2. Mild degenerative changes medial and patellofemoral compartment with moderate superior patellar spurring and mild suprapatellar joint effusion. No visible acute fracture or dislocation seen.
--- NOTE | ~2022-02-17 | XR_ITS ---
EXAMINATION: XR KNEE, RIGHT XR TIBIA AND FIBULA, RIGHT CLINICAL INFORMATION: Pain in right knee. COMPARISON: None TECHNIQUE: 2 views right tibia and fibula and 3 views right knee. FINDINGS: RIGHT TIBIA AND FIBULA: There is no visible acute fracture, dislocation or subluxation seen. No bony erosive changes. The soft tissues are normal. RIGHT KNEE: There is mild loss of patellofemoral and medial compartment joint space with moderate superior patellar spurring. No loose bodies or bony erosive changes seen. There is mild suprapatellar joint effusion. There is a moderate size superior patellar enthesophyte. XR/XR knee RT 3V IMPRESSION: 1. Unremarkable right tibia and fibula exam. 2. Mild degenerative changes medial and patellofemoral compartment with moderate superior patellar spurring and mild suprapatellar joint effusion. No visible acute fracture or dislocation seen.
== END 2022-02-17 12:01 | disposition home or self-care (01) ==
LOC: HO.XRAY 12:00
PROVIDERS: PCP Internal Medicine; Visit Provider Internal Medicine
DX: M25.561 Pain in right knee (principal); M79.604 Pain in right leg; Z91.81 History of falling
CPT/HCPCS: 73562; 73590

== ENCOUNTER → 2022-03-06 12:17 | Outpatient (BNVA) | payer MEDICARE, MEDICAID, SELFPAY | PROVIDERS: PCP Internal Medicine; Visit Provider Internal Medicine Endocrinology, Diabetes & Metabolism | DX: E11.42 Type 2 diabetes mellitus with diabetic polyneuropathy (principal); Z79.4 Long term (current) use of insulin | CPT/HCPCS: 82947; 99212 ==

== ENCOUNTER → 2022-03-20 10:29 | Outpatient (BNVA) | payer MEDICARE, MEDICAID, SELFPAY | PROVIDERS: PCP Internal Medicine; Visit Provider Hospitalist | DX: J45.40 Moderate persistent asthma, uncomplicated (principal); G47.33 Obstructive sleep apnea (adult) (pediatric); G89.12 Acute post-thoracotomy pain; R91.8 Other nonspecific abnormal finding of lung field; C7A.090 Malignant carcinoid tumor of the bronchus and lung | CPT/HCPCS: 99212 ==

== ENCOUNTER → 2022-04-01 09:28 | Outpatient (REF) | payer MEDICARE, MEDICAID, SELFPAY | LOC: HO.SL 09:28 | PROVIDERS: Visit Provider Hospitalist | DX: G47.33 Obstructive sleep apnea (adult) (pediatric) (principal) | CPT/HCPCS: 95806 ==

== ENCOUNTER → 2022-04-15 10:48 | Outpatient (BNVA) | payer MEDICARE, MEDICAID, SELFPAY | PROVIDERS: PCP Internal Medicine; Visit Provider Nurse Practitioner | DX: K59.04 Chronic idiopathic constipation (principal); K21.9 Gastro-esophageal reflux disease without esophagitis; K31.84 Gastroparesis; K58.0 Irritable bowel syndrome with diarrhea | CPT/HCPCS: 99212 ==

== ENCOUNTER 2022-04-29 09:45 | Outpatient (REF) | payer MEDICARE, MEDICAID, SELFPAY ==
[2022-04-29 10:08] LABS: MANUAL DIFF FLAG NO
[2022-04-29 10:50] LABS: Basophils Absolute Auto 0.1 X10*3/uL (0.0-0.2); Basophils Percent Auto 0.8 % (0-2); Eosinophils Absolute Auto 0.5 X10*3/uL (0.0-0.4); Eosinophils Percent Auto 5.2 % (0-4); Hematocrit 38.6 % (37.0-47.0); Hemoglobin 12.6 g/dl (12.0-16.0); Imm Gran Abs Auto 0.04 X10*3/uL (0.00-0.03); Imm Gran Pct Auto 0.4 % (0.0-0.4); Lymphocytes Absolute Auto 4.5 X10*3/uL (1.2-4.9); Lymphocytes Percent Auto 49.1 % (20-40); Mean Corpuscular HGB Conc 32.6 g/dl (31.0-35.0); Mean Corpuscular Hemoglobin 27.3 pg (27.0-33.0); Mean Corpuscular Volume 83.5 fL (80.0-98.0); Mean Platelet Volume 10.8 fL (9.4-12.3); Monocytes Absolute Auto 0.6 X10*3/uL (0.1-1.2); Monocytes Percent Auto 6.8 % (2-11); Neutrophils Absolute Auto 3.5 x10*3/uL (2.0-8.3); Neutrophils Percent Auto 37.7 % (45-73); Platelet Count 348 X10*3/uL (160-400); Red Blood Count 4.62 X10*6/uL (4.20-5.50); Red Cell Distribution Width 14.1 % (11.0-16.0); White Blood Count 9.2 X10*3/uL (4.8-10.8)
[2022-04-29 10:56] LABS: Estimated Average Glucose 166 mg/dL; Hemoglobin A1c % 7.4 %
[2022-04-29 11:31] LABS: Alanine Aminotransferase 17 U/L (0-31); Albumin Level 3.9 g/dL (3.5-5.0); Alkaline Phosphatase 181 U/L (39-117); Anion Gap 17 (12-20); Aspartate Amino Transferase 36 U/L (5-31); Bilirubin Total 0.9 mg/dL (0.0-1.0); Blood Urea Nitrogen 13 mg/dL (9-16); Carbon Dioxide 25 mmol/L (22-29); Chloride 104 mmol/L (96-108); Cholesterol 123 mg/dL; Estimated Glomerular Filt Rate > 60; Glucose Fasting 166 mg/dL (60-99); HDL Cholesterol 39 mg/dL; LDL Cholesterol Calculated 70 mg/dl; Potassium 4.5 mmol/L (3.3-5.1); Sodium 141 mmol/L (135-145); Total Protein 6.8 g/dL (6.5-8.0); Triglycerides 73 mg/dL
[2022-04-29 11:36] LABS: TSH reflex Free T4 2.29 uIU/mL (0.32-4.0); Vitamin D 25-OH Total 50.5 ng/mL (>30)
[2022-04-29 12:01] LABS: Appearance Urine Cloudy; Color Urine Yellow; Glucose Urine UA Negative (Negative); Leukocyte Esterase Urine Trace (Negative); Nitrite Urine Negative (Negative); Specific Gravity - Urine 1.015 (1.005-1.025); UMIC TRIGGER UACC YES; Urine Blood Negative (Negative); Urine Ketones Negative (Negative); Urine Protein Negative (Neg-Trace)
[2022-04-29 12:06] LABS: Bacteria Urine 1+ (None Seen); Hyaline Casts Urine 0-2 /LPF (0-2); RBC Urine 0-2 /HPF (0-2); Squamous Epithelial Cell Urine >20 /HPF (0-2); WBC Urine 0-5 /HPF (0-5)
[2022-04-29 12:40] LABS: Creatinine Urine 97.69 mg/dL; Microalbum/Creatinine Ratio Ur 5.1 ug/mg cr
== END 2022-04-29 09:46 | disposition home or self-care (01) ==
LOC: HO.LAB 09:45
PROVIDERS: PCP Internal Medicine; Visit Provider Internal Medicine
DX: E78.00 Pure hypercholesterolemia, unspecified (principal); R30.0 Dysuria; E55.9 Vitamin D deficiency, unspecified; E11.9 Type 2 diabetes mellitus without complications
CPT/HCPCS: 36415; 80053; 80061; 81001; 81003; 82043; 82306; 83036; 84443; 85025

== ENCOUNTER → 2022-05-29 11:41 | Outpatient (BNVA) | payer MEDICARE, MEDICAID, SELFPAY | PROVIDERS: PCP Internal Medicine; Visit Provider Nurse Practitioner | DX: Z01.818 Encounter for other preprocedural examination (principal); K59.04 Chronic idiopathic constipation; K21.9 Gastro-esophageal reflux disease without esophagitis; K31.84 Gastroparesis; E66.01 Morbid (severe) obesity due to excess calories; C7A.090 Malignant carcinoid tumor of the bronchus and lung; J45.50 Severe persistent asthma, uncomplicated; G47.33 Obstructive sleep apnea (adult) (pediatric); Z68.41 Body mass index [BMI] 40.0-44.9, adult | CPT/HCPCS: 99212 ==

== ENCOUNTER → 2022-06-05 10:12 | Outpatient (BNVA) | payer MEDICARE, MEDICAID, SELFPAY | PROVIDERS: PCP Internal Medicine; Visit Provider Hospitalist | DX: G47.33 Obstructive sleep apnea (adult) (pediatric) (principal); J45.40 Moderate persistent asthma, uncomplicated; R91.8 Other nonspecific abnormal finding of lung field; G89.12 Acute post-thoracotomy pain; C7A.090 Malignant carcinoid tumor of the bronchus and lung | CPT/HCPCS: 99212 ==

== ENCOUNTER 2022-07-29 10:32 | Outpatient (REF) | payer MEDICARE, MEDICAID, SELFPAY ==
--- NOTE | ~2022-07-29 | XR_ITS ---
EXAMINATION: XR CHEST CLINICAL INFORMATION: Bronchopneumonia. COMPARISON: None available. TECHNIQUE: 2 views of the chest were obtained. FINDINGS: The lungs are well-expanded and clear. There is bilateral parahilar bronchial wall thickening, likely airway disease. The heart size and pulmonary vascularity is normal. There is mild ventral spondylosis in the mid and lower dorsal spine. No aggressive lytic or sclerotic process seen. XR/XR chest 2V IMPRESSION: Unremarkable. No acute pneumonic process. Mild bronchial wall thickening and prominence, likely airway disease.
== END 2022-07-29 10:33 | disposition home or self-care (01) ==
LOC: HO.XRAY 10:32
PROVIDERS: PCP Internal Medicine; Visit Provider Nurse Practitioner Family
DX: J18.0 Bronchopneumonia, unspecified organism (principal); J45.40 Moderate persistent asthma, uncomplicated
CPT/HCPCS: 71046; 99212

== ENCOUNTER → 2022-08-04 14:19 | Outpatient (BNVA) | payer MEDICARE, MEDICAID, SELFPAY | PROVIDERS: PCP Internal Medicine; Visit Provider Internal Medicine Endocrinology, Diabetes & Metabolism | DX: E11.65 Type 2 diabetes mellitus with hyperglycemia (principal); E11.42 Type 2 diabetes mellitus with diabetic polyneuropathy; Z79.4 Long term (current) use of insulin | CPT/HCPCS: 82947; 83036; 99212 ==

== ENCOUNTER 2022-08-05 09:45 | Outpatient (REF) | payer MEDICARE, MEDICAID, SELFPAY ==
[2022-08-05 10:34] LABS: Basophils Absolute Auto 0.1 X10*3/uL (0.0-0.2); Basophils Percent Auto 0.8 % (0-2); Eosinophils Absolute Auto 0.4 X10*3/uL (0.0-0.4); Eosinophils Percent Auto 3.4 % (0-4); Hematocrit 41.1 % (37.0-47.0); Hemoglobin 13.5 g/dl (12.0-16.0); Imm Gran Abs Auto 0.05 X10*3/uL (0.00-0.03); Imm Gran Pct Auto 0.4 % (0.0-0.4); Lymphocytes Absolute Auto 5.1 X10*3/uL (1.2-4.9); Lymphocytes Percent Auto 44.7 % (20-40); MANUAL DIFF FLAG SCAN; Mean Corpuscular HGB Conc 32.8 g/dl (31.0-35.0); Mean Corpuscular Hemoglobin 27.6 pg (27.0-33.0); Mean Corpuscular Volume 83.9 fL (80.0-98.0); Mean Platelet Volume 10.9 fL (9.4-12.3); Monocytes Absolute Auto 0.7 X10*3/uL (0.1-1.2); Monocytes Percent Auto 6.3 % (2-11); Neutrophils Absolute Auto 5.1 x10*3/uL (2.0-8.3); Neutrophils Percent Auto 44.4 % (45-73); Platelet Count 377 X10*3/uL (160-400); Red Cell Distribution Width 13.7 % (11.0-16.0); SCAN SMEAR FLAG 1; White Blood Count 11.5 X10*3/uL (4.8-10.8)
[2022-08-05 10:58] LABS: SLIDE REVIEW VERIFIED
[2022-08-05 11:03] LABS: Estimated Average Glucose 151 mg/dL; Hemoglobin A1c % 6.9 %
[2022-08-05 11:09] LABS: Alanine Aminotransferase 20 U/L (0-31); Albumin Level 3.9 g/dL (3.5-5.0); Alkaline Phosphatase 138 U/L (39-117); Anion Gap 16 (12-20); Aspartate Amino Transferase 39 U/L (5-31); Blood Urea Nitrogen 14 mg/dL (9-16); Calcium 9.5 mg/dL (8.4-10.2); Carbon Dioxide 27 mmol/L (22-29); Chloride 101 mmol/L (96-108); Cholesterol 129 mg/dL; Estimated Glomerular Filt Rate > 60; Glucose Fasting 165 mg/dL (60-99); HDL Cholesterol 44 mg/dL; LDL Cholesterol Calculated 69 mg/dl; Potassium 4.4 mmol/L (3.3-5.1); Sodium 140 mmol/L (135-145); Total Protein 7.1 g/dL (6.5-8.0); Triglycerides 83 mg/dL
[2022-08-05 11:27] LABS: TSH reflex Free T4 2.27 uIU/mL (0.32-4.0); Vitamin D 25-OH Total 53.1 ng/mL (>30)
[2022-08-05 11:30] LABS: Appearance Urine Clear; Color Urine Yellow; Glucose Urine UA Negative (Negative); Leukocyte Esterase Urine Negative (Negative); Nitrite Urine Negative (Negative); Urine Blood Negative (Negative); Urine Ketones Negative (Negative); Urine Protein Negative (Neg-Trace)
[2022-08-05 12:33] LABS: Creatinine Urine 223.48 mg/dL; Microalbum/Creatinine Ratio Ur 4.4 ug/mg cr
== END 2022-08-05 09:46 | disposition home or self-care (01) ==
LOC: HO.LAB 09:45
PROVIDERS: PCP Internal Medicine; Visit Provider Internal Medicine
DX: E78.00 Pure hypercholesterolemia, unspecified (principal); I10 Essential (primary) hypertension; E55.9 Vitamin D deficiency, unspecified; R30.0 Dysuria; E11.9 Type 2 diabetes mellitus without complications
CPT/HCPCS: 36415; 80053; 80061; 81003; 82043; 82306; 83036; 84443; 85025

== ENCOUNTER → 2022-08-20 12:28 | Outpatient (BNVA) | payer MEDICARE, MEDICAID, SELFPAY | PROVIDERS: PCP Internal Medicine; Visit Provider Orthopaedic Surgery | DX: M17.0 Bilateral primary osteoarthritis of knee (principal); E11.42 Type 2 diabetes mellitus with diabetic polyneuropathy; Z79.4 Long term (current) use of insulin | CPT/HCPCS: 20610; 99212; J1100 ==

== ENCOUNTER 2022-09-21 10:24 | Outpatient (AMB) | payer MEDICARE, MEDICAID, SELFPAY ==
[2022-09-21 10:25] VITALS: BMI 39.8
--- NOTE | 2022-09-21 10:25 | A.OFFVIS_ITS ---
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 The patient also has a history of asthma and obstructive sleep apnea. She has been using the new respironic dream station. She is using more than 4 hours a night. However, she has not gotten any supplies. I did call her [employer] company and sent they will facilitate some supplies. In the meantime I did provide her mask F30 that she can try. Her asthma appears to be stable with the current respiratory medications. She has not had to use her rescue inhaler and she has not to use prednisone. She has been complaining of some discomfort over the right flank area. . 03/20/2022 the patient is here for a pulmonary follow-up visit. The patient continues to complain of significant daytime drowsiness. She has not been able to use her CPAP in no longer getting supplies. Her CPAP was recalled and she has not been able to get a replacement. The patient is very concerned because she is getting worsening daytime drowsiness and headaches in the morning. Her [place] score is elevated at 14 over 24. at this time the patient needs to get a repeat sleep study to get reestablished with the [employer] company in order to get a new CPAP. in the meantime the patient is concerned about her pulmonary nodules. I did reassure her that they have not changed. She does carry history of carcinoid. The patient does not have any evidence of any recurrence at this time. She has a scheduled CT scan for September 2022. She continues use her inhalers. Although there is a discrepancy at the pharmacy with Spiriva and Stiolto. I will make sure to clarify that at the pharmacy. She is is using the Flovent and she will continue to use the Stiolto at this time. The patient will need a sleep study will follow-up in a couple months. 06/05/2022 the patient is here for pulmonary follow-up visit. She continues to have significant daytime drowsiness. Her [place] score still very elevated 03/07. She is struggling without her CPAP. She was diagnosed with sleep apnea in the past and had been responding well to CPAP. Her last home sleep study did not demonstrate a evidence of any sleep apnea. Although, the patient states that she had a hard time with it and she could barely sleep with as she was concerned about all the connections. Therefore, in view of her history of sleep apnea and ongoing daytime drowsiness will get a in-lab sleep study to get more accurate information. The patient is requesting to put a [facility]. Will go ahead and order it for her as I do believe that she also has sleep apnea not being identified in the limited home sleep study. From a carcinoid standpoint she has been doing well. Last CT scan was reassuring no evidence of any recurrence. She is up for a CAT scan sometime in the summer of 2022 which is a year follow-up. She has small pulmonary nodules that may indeed be tumor lytes. They have not changed which is reassuring. She continues use her respiratory medicines with good effect. Has not had to use any prednisone. She did start the biologic injections in seem to be helping her mitigate her symptoms and minimize the use of prednisone. 09/21/2022 this is a telehealth visit. The patient has been having worsening asthma symptoms. Complaining of cough chest congestion and chest tightness and wheezing. Moderate severity. Has been sick now for about 4-5 days. Denies any fevers or chills. She is running out of her medications. I will make sure to send her bronchodilator therapy to the pharmacy. She continues use her maintenance medications as prescribed. In addition to this the patient is concerned because she is having right-sided chest discomfort. She is concerned about a history of carcinoid tumor. She does have a CT scan scheduled for sometime in mid to late October of this year. Will go ahead and requested a little bit sooner. The patient could not make it to her appointment today. If however her symptoms are no better she needs to reschedule and come in to be evaluated. Also to note the patient continues to have daytime drowsiness with an elevated [place] score of 11/24. She already had a home sleep study in April 2022 demonstrating no evidence of sleep apnea, and then had a an in-lab PSG at [facility] in August 2022 also demonstrating no evidence of sleep apnea. Therefore the patient will continue with positional therapy and no need for Pap therapy at this time. [facility] Medical History Allergic rhinitis Anxiety Arthritis Asthma Benign essential hypertension Carcinoid tumor Chest pain COPD (chronic obstructive pulmonary disease) Coronary artery disease Depression Dyspnea Gastroparesis GERD (gastroesophageal reflux disease) Hyperlipidemia LDL goal <70 Lumbar degenerative disc disease Morbid obesity with BMI of 40.0-44.9, adult Obstructive sleep apnea Post-thoracotomy pain syndrome Primary osteoarthritis of both knees Pulmonary nodules Pure hypercholesterolemia Sinusitis Stool incontinence Type 2 diabetes mellitus with diabetic polyneuropathy Type 2 diabetes mellitus with hyperglycemia, with long-term current use of insulin Vitamin D deficiency Surgical History History of cardiac cath (~07/2018) History of colonoscopy (~12/2013) History of esophagogastroduodenoscopy (EGD) (~10/2011) History of lobectomy of lung (~08/2016) History of lung biopsy (~07/2016) History of rectal sphincterotomy (~11/2013) History of tubal ligation Family History Father Stroke Hypertension Diabetes Mother Diabetes Hypertension Social History Household Members: Spouse Housing: Apartment Alcohol intake: never Patient Tobacco Use Status: Former Tobacco user Tobacco use type: Cigarette e-Cigarette/Vaping Use: Never Used Second Hand Smoke Exposure: Yes service: No Current occupational status: disabled Cognitive needs: No Hearing needs: No Vision needs: Yes Review of Systems Const Reports daytime sleepiness, Reports difficulty sleeping, Denies fatigue, Denies fever(s), Reports headache(s), Denies night sweats, Denies poor appetite, Reports snoring, Reports stops breathing during sleep and Denies weight loss ENT Reports Normal hearing present, Denies dental pain, Denies dysphagia, Reports headache(s), Denies hearing loss, Denies mouth pain, Denies odynophagia, Denies throat swelling, Denies tongue swelling and Reports other (Dentition adequate) Card Reports chest pain and Reports dyspnea on exertion Resp Reports cough, Reports dyspnea on exertion and Reports snoring GI Denies abdominal pain, Denies melena, Reports bloating, Denies hematochezia, Denies constipation, Denies GI cramping, Denies dysphagia, Denies excessive flatus, Denies early satiety, Reports heartburn, Denies nausea, Denies odynophagia, Denies vomiting and Denies hematemesis Musc Reports no additional complaints and Reports myalgias Skin/Breast Denies pruritus, Denies lesions, Denies rash and Denies jaundice Neuro Reports Normal hearing present, Denies Abnormal speech present and Reports headache(s) Endo Denies fatigue Aller/Immun Denies throat swelling and Denies tongue swelling Physical Exam Vital Signs: BMI result Body Mass Index 39.8 Const General: alert Neck Neck: Yes normal visual inspection, Yes full ROM and Yes no lymphadenopathy Chest Chest palpation & inspection: normal inspection of the chest and localized rib tenderness with anteroposterior compression Resp Auscultation: diminished lung sounds Cardio Rate: regular rate Rhythm: regular rhythm Heart sounds: S1 normal heart sound present and S2 normal heart sound present GI Palpation (GI): Soft to palpation and nontender Auscultation: normal bowel sounds Skin General skin exam: rashes and/or lesions noted Neuro Cranial nerves: Yes Normal hearing present Speech: No Abnormal speech present Assessment & Plan Assessment & Plan (1) Obstructive sleep apnea: Comment: Has significant cardiovascular disease, no evidence of ILDEFONSO on recent inlab PSG Code(s): G47.33 - Obstructive sleep apnea (adult) (pediatric) (2) Asthma: Code(s): J45.909 - Unspecified asthma, uncomplicated Qualifiers: Asthma severity: moderate Asthma persistence: persistent Asthma complication type: with acute exacerbation Qualified Code(s): J45.41 - Moderate persistent asthma with (acute) exacerbation (3) Carcinoid tumor: Comment: (S/P RUL lobectomy at [facility] [place] - 08/2016) Code(s): D3A.00 - Benign carcinoid tumor of unspecified site Qualifiers: Carcinoid tumor malignancy status: malignant Carcinoid tumor location: lung Qualified Code(s): C7A.090 - Malignant carcinoid tumor of the bronchus and lung (4) Post-thoracotomy pain syndrome: Code(s): G89.12 - Acute post-thoracotomy pain (5) Pulmonary nodules: Comment: Likely tumorlets Code(s): R91.8 - Other nonspecific abnormal finding of lung field Plan start Prednisone start Azithromycin continue Flovent continue Stiolto daily will use nebulizer Claritin short-acting beta agonist as needed continue Singulair Repeat CT chest 09/2022 F/U 3 months Orders: Orders CT chest wo IV con 10/12/22 C7A.090 - Malignant carcinoid tumor of the bronchus and lung, D3A.090 - Benign carcinoid tumor of the bronchus and lung Coding Level of Care Code Tele Est Pt Level 4 (86336) Diagnoses Obstructive sleep apnea G47.33 Asthma J45.41 Asthma severity: moderate Asthma persistence: persistent Asthma complication type: with acute exacerbation Carcinoid tumor C7A.090 Carcinoid tumor malignancy status: malignant Carcinoid tumor location: lung Post-thoracotomy pain syndrome G89.12 Pulmonary nodules R91.8 Time Spent (min) 17
== END 2022-09-21 10:35 | disposition home or self-care (01) ==
LOC: HO.HPS 10:24
PROVIDERS: PCP Internal Medicine; Visit Provider Hospitalist
DX: G47.33 Obstructive sleep apnea (adult) (pediatric) (principal); J45.41 Moderate persistent asthma with (acute) exacerbation; C7A.090 Malignant carcinoid tumor of the bronchus and lung; G89.12 Acute post-thoracotomy pain; R91.8 Other nonspecific abnormal finding of lung field
CPT/HCPCS: 99214

== ENCOUNTER → 2022-09-21 10:24 | Outpatient (BNVA) | payer MEDICARE, MEDICAID, SELFPAY | PROVIDERS: PCP Internal Medicine; Visit Provider Hospitalist | DX: G47.33 Obstructive sleep apnea (adult) (pediatric) (principal) ==

== ENCOUNTER 2022-10-16 09:22 | Outpatient (REF) | payer MEDICARE, MEDICAID, SELFPAY ==
--- NOTE | ~2022-10-16 | CT_ITS ---
EXAMINATION: CT CHEST WITHOUT CONTRAST CLINICAL INFORMATION: Malignant carcinoid tumor of bronchus and lung. COMPARISON: Chest radiograph 07/29/2022. CT chest 08/29/2021. TECHNIQUE: Multidetector volumetric CT imaging of the chest was done. Axial MIP volume rendering provided. Sagittal and coronal reformatted images were obtained. This CT examination was performed using dose optimization techniques as appropriate, variously including the following: *Automated exposure control *Adjustment of mA and/or kV according to patient size (this includes techniques or standardized protocols for targeted exams where dose is matched to indication/reason for exam; i.e. extremities or head) *Use of iterative reconstruction technique DLP: 202 mGy-cm. FINDINGS: LUNGS: Postoperative changes are again noted from right middle lobectomy. Again seen, is some mild subpleural reticulation in the right upper lobe laterally. Some mild bilateral posterior pleural thickening is present in both upper lobes. A subpleural/perifissural nodule in the left upper lobe posteriorly measuring 3 mm is unchanged (5:202 compare prior 6:197). A pleural-based 3 mm nodule in the right upper lobe laterally is unchanged (5:245 compare prior 6:244). No new pulmonary nodules are seen. MEDIASTINUM: Some small pulmonary nodules are seen but there is no adenopathy. CORONARY ARTERY CALCIFICATION: Present. PLEURA: There is no pleural effusion. No pleural mass or thickening. AXILLA: Small bilateral axillary lymph nodes present but there is no lymphadenopathy. UPPER ABDOMEN: Unremarkable. OSSEOUS STRUCTURES: Unremarkable. CT/CT chest wo IV con IMPRESSION: 1. Stable postoperative changes from right middle lobectomy. 2. No evidence of recurrent or metastatic disease in the chest. 3. Small pulmonary nodules are unchanged. Fleischner guidelines were followed. Follow-up per oncology protocol.
== END 2022-10-16 09:23 | disposition home or self-care (01) ==
LOC: HO.CT 09:22
PROVIDERS: Visit Provider Hospitalist
DX: C7A.090 Malignant carcinoid tumor of the bronchus and lung (principal)
CPT/HCPCS: 71250

== ENCOUNTER 2022-10-30 11:20 | Outpatient (AMB) | payer MEDICARE, MEDICAID, SELFPAY ==
[2022-10-30 11:41] VITALS: BMI 39.7
--- NOTE | 2022-10-30 11:41 | A.OFFVIS_ITS ---
Intake Vital Signs 10/30/22 11:41 Height 5 ft 3 in Weight 224 lb BMI 39.7 Intake Visit Reasons: OV- B/l Knee oa Intake Note: Radha is a 67 year old female who presents today for bilateral knee increase pain. She was last seen on 08/20/22 where her right knee was injected, but due to her sugars only one knee could be injected. She is unsure if she should get her left knee injection due to increase of pain and weakness. States she has fallen due to knee giving out. Would like to discuss if injection is beneficial at the moment. Also mentioned she is having b/l foot pain. Allergies nitrofurantoin Allergy (Intermediate, Verified 11/05/22 11:34) itching and redness (in the legs) HPI OV- B/l Knee oa HPI Details Radha Shah is a 67-year-old Northern Irish speaking Diabetic female who returns for a follow-up of her bilateral knee OA pain, L>R. Her last cortisone injection in the right knee was on 08/20/2022. Due to high glucose the left knee was not injected. She reports she is unsure if she wants a cortisone injection in the left knee due to increased pain and weakness. She claims she has fallen due to her knee giving out. She would like to discuss the injection if if would be beneficial to her. She reports bilateral radiating electrical and burning sensation down the legs. She denies bowel or bladder dysfunction. She reports bilateral foot pain. [facility] Medical History (Updated 11/05/22 @ 21:30 by Angelo Hoffmann MD) Allergic rhinitis Anxiety Arthritis Asthma Benign essential hypertension Carcinoid tumor Chest pain Chronic bronchitis COPD (chronic obstructive pulmonary disease) Coronary artery disease Depression Dyspnea Gastroparesis GERD (gastroesophageal reflux disease) Hyperlipidemia LDL goal <70 Lumbar degenerative disc disease Morbid obesity with BMI of 40.0-44.9, adult Obstructive sleep apnea Post-thoracotomy pain syndrome Primary osteoarthritis of both knees Pulmonary nodules Pure hypercholesterolemia Sinusitis Stool incontinence Type 2 diabetes mellitus with diabetic polyneuropathy Type 2 diabetes mellitus with hyperglycemia, with long-term current use of insulin Vitamin D deficiency Surgical History History of cardiac cath (~07/2018) History of colonoscopy (~12/2013) History of esophagogastroduodenoscopy (EGD) (~10/2011) History of lobectomy of lung (~08/2016) History of lung biopsy (~07/2016) History of rectal sphincterotomy (~11/2013) History of tubal ligation Family History Father Stroke Hypertension Diabetes Mother Diabetes Hypertension Social History Household Members: Spouse Housing: Apartment Alcohol intake: never Patient Tobacco Use Status: Former Tobacco user Tobacco use type: Cigarette e-Cigarette/Vaping Use: Never Used Second Hand Smoke Exposure: Yes service: No Current occupational status: disabled Cognitive needs: No Hearing needs: No Vision needs: Yes Review of Systems Const All systems reviewed & are unremarkable except as noted in HPI and below Physical Exam Vital Signs: BMI result Body Mass Index 39.7 Const General: cooperative, healthy appearing and no acute distress Orientation/consciousness: patient oriented x3 Resp Effort & Inspection: normal respiratory effort and able to speak in complete sentences Cardio Rate: regular rate Peripheral pulses: Peripheral pulses 2+ throughout GI Palpation (GI): Soft to palpation Skin General skin exam: no rashes or lesions noted Lesions: no lesions Rashes: no rashes Neuro General: patient oriented x3 Extrem Other: Bilateral knees: Mild vague tenderness with trace effusion. Office Procedures Joint Injection/Drain Joint Injection/Drain Details: Injected 1 mL of Decadron and 3 mL 1% lidocaine and 3 mL of 0.25% Marcaine. Site was prepped using aseptic technique. Patient tolerated the procedure well. Primary Site: left knee Approach Used: anterolateral Coding 33652 - Large joint Procedure code (CPT) selection complete Results Reviewed Results Reviewed: 10/30/22 12:12 BUPivacaine MPF 0.25 % [Sensorcaine-MPF 0.25% 10 ML] 10 ml .ROUTE .STK-MED ONE Lidocaine HCl 2 % MPF [Xylocaine 2 % MPF] 5 ml .ROUTE .STK-MED ONE dexAMETHasone sod phosphate [Decadron] 4 mg .ROUTE .STK-MED ONE Assessment & Plan Assessment & Plan (1) Osteoarthritis of left knee: Code(s): M17.12 - Unilateral primary osteoarthritis, left knee Plan: I discussed non-surgical and surgical intervention options with the patient while in the office today. The patient was offered a cortisone injection in the left knee. The patient was explained the risk, benefits, and alternatives to receiving this injection. After receiving consent for the injection, the patient had the procedure done while in office today. The patient tolerated the procedure well with no complications. Due to the patient?s history of diabetes, they were instructed to monitor her blood glucose level. The patient was informed that they could see a rise in their numbers and if the numbers became too high, they were instructed to call their PCP. The patient was also informed that they could have facial flushing as a side effect of the injection but this will pass. For the lumbar radiculopathy she will be referred to Pain Management for further evaluation and treatment. We had a long discussion about exercise and her attempting to stay active. She will call the office if she would like to repeat her injection no soone then 3 months prior her prior injection. (2) Osteoarthritis of right knee: Code(s): M17.11 - Unilateral primary osteoarthritis, right knee (3) Diabetes mellitus: Code(s): E11.9 - Type 2 diabetes mellitus without complications (4) Lumbar radiculopathy: Code(s): M54.16 - Radiculopathy, lumbar region Orders: Referrals Pain Management Referral E11.9 - Type 2 diabetes mellitus without complications, M17.11 - Unilateral primary osteoarthritis, right knee, M17.12 - Unilateral primary osteoarthritis, left knee, M54.16 - Radiculopathy, lumbar region Patient Instructions: Scribed for Dr. Wilver Duggan by Melina Alejandre, medical advisor, on 10/20/2022 at 11:24 am, EST. Coding Level of Care Code Est Pt Level 4 (08661) Diagnoses Osteoarthritis of left knee M17.12 Osteoarthritis of right knee M17.11 Diabetes mellitus E11.9 Lumbar radiculopathy M54.16 CPT Codes Coding - 97524 Large joint: 85077 - Large joint ([id number])
== END 2022-10-30 12:30 | disposition home or self-care (01) ==
PROVIDERS: PCP Internal Medicine; Visit Provider Orthopaedic Surgery
DX: M17.0 Bilateral primary osteoarthritis of knee (principal); E11.9 Type 2 diabetes mellitus without complications; M54.16 Radiculopathy, lumbar region
CPT/HCPCS: 20610; 99214

== ENCOUNTER → 2022-10-30 11:20 | Outpatient (BNVA) | payer MEDICARE, MEDICAID, SELFPAY | PROVIDERS: PCP Internal Medicine; Visit Provider Orthopaedic Surgery | DX: M17.0 Bilateral primary osteoarthritis of knee (principal); M54.16 Radiculopathy, lumbar region; E11.9 Type 2 diabetes mellitus without complications | CPT/HCPCS: 20610; 99212; J1100 ==

== ENCOUNTER 2022-11-05 11:00 | Outpatient (AMB) | payer MEDICARE, MEDICAID, SELFPAY ==
[2022-11-05 11:31] VITALS: BP 128/70; PULSE 71; O2SAT 96; BMI 40.7
--- NOTE | 2022-11-05 11:31 | MHC.OFFVIS ---
Intake Vital Signs 11/05/22 11:31 Height 5 ft 3 in Weight 230 lb BMI 40.7 BP 128/70 Blood Pressure Location Lt brachial Position Sitting Pulse 71 Pulse Source Pulse Oximeter Pulse Oximetry (%) 96 Oxygen Delivery Method Room Air Intake Visit Reasons: Sleep Study Results Speech Lang Path Therapist Required: No Allergies nitrofurantoin Allergy (Intermediate, Verified 11/05/22 11:34) itching and redness (in the legs) HPI HPI Comments History of Present Illness Details The patient is a 67-year-old woman known carcinoid tumor status post resection. The patient also has a history of asthma and obstructive sleep apnea. She has been using the new respironic dream station. She is using more than 4 hours a night. However, she has not gotten any supplies. I did call her [employer] company and sent they will facilitate some supplies. In the meantime I did provide her mask F30 that she can try. Her asthma appears to be stable with the current respiratory medications. She has not had to use her rescue inhaler and she has not to use prednisone. She has been complaining of some discomfort over the right flank area. . 03/20/2022 the patient is here for a pulmonary follow-up visit. The patient continues to complain of significant daytime drowsiness. She has not been able to use her CPAP in no longer getting supplies. Her CPAP was recalled and she has not been able to get a replacement. The patient is very concerned because she is getting worsening daytime drowsiness and headaches in the morning. Her Manson score is elevated at 14 over 24. at this time the patient needs to get a repeat sleep study to get reestablished with the [employer] company in order to get a new CPAP. in the meantime the patient is concerned about her pulmonary nodules. I did reassure her that they have not changed. She does carry history of carcinoid. The patient does not have any evidence of any recurrence at this time. She has a scheduled CT scan for September 2022. She continues use her inhalers. Although there is a discrepancy at the pharmacy with Spiriva and Stiolto. I will make sure to clarify that at the pharmacy. She is is using the Flovent and she will continue to use the Stiolto at this time. The patient will need a sleep study will follow-up in a couple months. 06/05/2022 the patient is here for pulmonary follow-up visit. She continues to have significant daytime drowsiness. Her Manson score still very elevated 12/24. She is struggling without her CPAP. She was diagnosed with sleep apnea in the past and had been responding well to CPAP. Her last home sleep study did not demonstrate a evidence of any sleep apnea. Although, the patient states that she had a hard time with it and she could barely sleep with as she was concerned about all the connections. Therefore, in view of her history of sleep apnea and ongoing daytime drowsiness will get a in-lab sleep study to get more accurate information. The patient is requesting to put a [facility]. Will go ahead and order it for her as I do believe that she also has sleep apnea not being identified in the limited home sleep study. From a carcinoid standpoint she has been doing well. Last CT scan was reassuring no evidence of any recurrence. She is up for a CAT scan sometime in the summer of 2022 which is a year follow-up. She has small pulmonary nodules that may indeed be tumor lytes. They have not changed which is reassuring. She continues use her respiratory medicines with good effect. Has not had to use any prednisone. She did start the biologic injections in seem to be helping her mitigate her symptoms and minimize the use of prednisone. 09/21/2022 this is a telehealth visit. The patient has been having worsening asthma symptoms. Complaining of cough chest congestion and chest tightness and wheezing. Moderate severity. Has been sick now for about 4-5 days. Denies any fevers or chills. She is running out of her medications. I will make sure to send her bronchodilator therapy to the pharmacy. She continues use her maintenance medications as prescribed. In addition to this the patient is concerned because she is having right-sided chest discomfort. She is concerned about a history of carcinoid tumor. She does have a CT scan scheduled for sometime in mid to late October of this year. Will go ahead and requested a little bit sooner. The patient could not make it to her appointment today. If however her symptoms are no better she needs to reschedule and come in to be evaluated. Also to note the patient continues to have daytime drowsiness with an elevated Manson score of 11/24. She already had a home sleep study in April 2022 demonstrating no evidence of sleep apnea, and then had a an in-lab PSG at [facility] in August 2022 also demonstrating no evidence of sleep apnea. Therefore the patient will continue with positional therapy and no need for Pap therapy at this time. 11/05/2022 the patient is here for pulmonary follow-up visit. She still having a congested cough with bronchitis. I did is prescribed her doxycycline but is not clear if she ended up taking a nap. She is also having increasing shortness of breath. She does have some rhonchi on examination in does have a bronchospastic cough. Therefore I will send her a course of azithromycin and also will send her some prednisone. The patient also is having a cough the Tessalon pearls to help her. Although the not covered by insurance. I did give her a good Rx card in a prescription she can fill it at [facility]. We did review her last CT scan of the chest that was done back in 10/16/2022 demonstrating stable postoperative changes and stable nodules without any acute disease. The patient also had an in-lab sleep study. No evidence of any sleep apnea in no evidence of any hypoxia which is very reassuring. The patient will continue with positional therapy at this time. No need for Pap therapy at this time. [facility] Medical History (Updated 11/05/22 @ 21:30 by Angelo Hoffmann MD) Allergic rhinitis Anxiety Arthritis Asthma Benign essential hypertension Carcinoid tumor Chest pain Chronic bronchitis COPD (chronic obstructive pulmonary disease) Coronary artery disease Depression Dyspnea Gastroparesis GERD (gastroesophageal reflux disease) Hyperlipidemia LDL goal <70 Lumbar degenerative disc disease Morbid obesity with BMI of 40.0-44.9, adult Obstructive sleep apnea Post-thoracotomy pain syndrome Primary osteoarthritis of both knees Pulmonary nodules Pure hypercholesterolemia Sinusitis Stool incontinence Type 2 diabetes mellitus with diabetic polyneuropathy Type 2 diabetes mellitus with hyperglycemia, with long-term current use of insulin Vitamin D deficiency Surgical History History of cardiac cath (~07/2018) History of colonoscopy (~12/2013) History of esophagogastroduodenoscopy (EGD) (~10/2011) History of lobectomy of lung (~08/2016) History of lung biopsy (~07/2016) History of rectal sphincterotomy (~11/2013) History of tubal ligation Family History Father Stroke Hypertension Diabetes Mother Diabetes Hypertension Social History Household Members: Spouse Housing: Apartment Alcohol intake: never Patient Tobacco Use Status: Former Tobacco user Tobacco use type: Cigarette e-Cigarette/Vaping Use: Never Used Second Hand Smoke Exposure: Yes service: No Current occupational status: disabled Cognitive needs: No Hearing needs: No Vision needs: Yes Review of Systems Const Reports daytime sleepiness, Reports difficulty sleeping, Denies fatigue, Denies fever(s), Reports headache(s), Denies night sweats, Denies poor appetite, Reports snoring and Denies weight loss ENT Reports Normal hearing present, Denies dental pain, Denies dysphagia, Reports headache(s), Denies hearing loss, Denies mouth pain, Denies odynophagia, Denies throat swelling, Denies tongue swelling and Reports other (Dentition adequate) Card Reports chest pain and Reports dyspnea on exertion Resp Reports chest congestion, Reports cough, Reports dyspnea on exertion, Reports snoring and Reports wheezing GI Denies abdominal pain, Denies melena, Reports bloating, Denies hematochezia, Denies constipation, Denies GI cramping, Denies dysphagia, Denies excessive flatus, Denies early satiety, Reports heartburn, Denies nausea, Denies odynophagia, Denies vomiting and Denies hematemesis Musc Reports no additional complaints and Reports myalgias Skin/Breast Denies pruritus, Denies lesions, Denies rash and Denies jaundice Neuro Reports Normal hearing present, Denies Abnormal speech present and Reports headache(s) Endo Denies fatigue Aller/Immun Denies throat swelling, Denies tongue swelling and Reports wheezing Physical Exam Vital Signs: Last Vital Signs Pulse 71 11/05/22 11:31 BP 128/70 11/05/22 11:31 Pulse Ox 96 11/05/22 11:31 Oxygen Delivery Method Room Air 11/05/22 11:31 BMI result Body Mass Index 40.7 Const General: alert Neck Neck: Yes normal visual inspection, Yes full ROM and Yes no lymphadenopathy Chest Chest palpation & inspection: normal inspection of the chest and localized rib tenderness with anteroposterior compression Resp Effort & Inspection: Actively coughing Quality: productive Auscultation: diminished lung sounds Cardio Rate: regular rate Rhythm: regular rhythm Heart sounds: S1 normal heart sound present and S2 normal heart sound present GI Palpation (GI): Soft to palpation and nontender Auscultation: normal bowel sounds Skin General skin exam: rashes and/or lesions noted Neuro Cranial nerves: Yes Normal hearing present Speech: No Abnormal speech present Assessment & Plan Assessment & Plan (1) Asthma: Code(s): J45.909 - Unspecified asthma, uncomplicated Qualifiers: Asthma severity: moderate Asthma persistence: persistent Asthma complication type: with acute exacerbation Qualified Code(s): J45.41 - Moderate persistent asthma with (acute) exacerbation (2) Carcinoid tumor: Comment: (S/P RUL lobectomy at [facility] [place] - 08/2016) Code(s): D3A.00 - Benign carcinoid tumor of unspecified site Qualifiers: Carcinoid tumor malignancy status: malignant Carcinoid tumor location: lung Qualified Code(s): C7A.090 - Malignant carcinoid tumor of the bronchus and lung (3) Post-thoracotomy pain syndrome: Code(s): G89.12 - Acute post-thoracotomy pain (4) Pulmonary nodules: Comment: Likely tumorlets Code(s): R91.8 - Other nonspecific abnormal finding of lung field (5) Chronic bronchitis: Code(s): J42 - Unspecified chronic bronchitis (6) Obstructive sleep apnea: Comment: no evidence of ILDEFONSO on recent inlab PSG Code(s): G47.33 - Obstructive sleep apnea (adult) (pediatric) Plan start Prednisone start Azithromycin continue Flovent continue Stiolto daily will use nebulizer Claritin short-acting beta agonist as needed continue Singulair Repeat CT chest 09/2023 F/U 4 months Medications: New azithromycin Take 1 tablet on Wednesday/Wednesday/Wednesday 250 mg PO 3XW 28 days 12 tabs 1RF K21.9 - Gastro-esophageal reflux disease without esophagitis prednisone PO daily; Take 2 tabs daily x 5 days, then 1 tab x 5 days 10 days 15 tabs 0RF benzonatate 200 mg PO BID 30 days PRN 30 caps 11RF cough benzonatate 200 mg PO BID 30 days PRN 30 caps 11RF cough Coding Level of Care Code Est Pt Level 4 (82584) Diagnoses Asthma J45.41 Asthma severity: moderate Asthma persistence: persistent Asthma complication type: with acute exacerbation Carcinoid tumor C7A.090 Carcinoid tumor malignancy status: malignant Carcinoid tumor location: lung Post-thoracotomy pain syndrome G89.12 Pulmonary nodules R91.8 Chronic bronchitis J42 Obstructive sleep apnea G47.33 Time Spent (min) 20
== END 2022-11-05 12:04 | disposition home or self-care (01) ==
PROVIDERS: PCP Internal Medicine; Visit Provider Hospitalist
DX: J45.41 Moderate persistent asthma with (acute) exacerbation (principal); C7A.090 Malignant carcinoid tumor of the bronchus and lung; G89.12 Acute post-thoracotomy pain; R91.8 Other nonspecific abnormal finding of lung field; J42 Unspecified chronic bronchitis; G47.33 Obstructive sleep apnea (adult) (pediatric)
CPT/HCPCS: 99214

== ENCOUNTER → 2022-11-05 11:00 | Outpatient (BNVA) | payer MEDICARE, MEDICAID, SELFPAY | PROVIDERS: PCP Internal Medicine; Visit Provider Hospitalist | DX: J45.41 Moderate persistent asthma with (acute) exacerbation (principal); G47.33 Obstructive sleep apnea (adult) (pediatric); J42 Unspecified chronic bronchitis; C7A.090 Malignant carcinoid tumor of the bronchus and lung; G89.12 Acute post-thoracotomy pain; R91.8 Other nonspecific abnormal finding of lung field | CPT/HCPCS: 99212 ==

== ENCOUNTER 2022-11-13 09:02 | Outpatient (AMB) | payer MEDICARE, MEDICAID, SELFPAY ==
[2022-11-13 09:04] VITALS: BP 120/72; PULSE 79; O2SAT 96; BMI 41.3
--- NOTE | 2022-11-13 09:04 | AM.OFFVISMDC ---
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 Required: No Accompanied by: Self / Same As Patient Allergies nitrofurantoin Allergy (Intermediate, Verified 11/13/22 09:34) itching and redness (in the legs) Medication List - Last Reconciled 11/13/22 by Leroy Jauregui MD [ADULT BRIEFS (size XL) As directed] [ADULT PULL-UPS (size XL) As directed] albuterol sulfate 90 mcg/actuation 2 puffs inhalation QID PRN albuterol sulfate 2.5 mg (3 mL) inhalation Q4-6H PRN alcohol swabs 1 pad topical TID amitriptyline 25 mg PO BEDTIME amitriptyline 50 mg PO BEDTIME aspirin 81 mg PO DAILY 90 days atorvastatin 40 mg PO DAILY azithromycin 250 mg PO 3XW 28 days benzonatate 200 mg PO BID PRN 30 days benzonatate 200 mg PO BID PRN 30 days blood pressure monitor As directed blood sugar diagnostic (OneTouch Verio test strips) Three times a day blood sugar diagnostic (OneTouch Verio test strips) As directed tests 4X/day blood-glucose meter Three times a day blood-glucose meter (OneTouch Verio Flex Meter) As directed trsts 4 X/day cholecalciferol (vitamin D3) 50 mcg PO DAILY 90 days dexlansoprazole (Dexilant) 60 mg PO DAILY [DISPOSABLE WIPES As directed] doxycycline hyclate 100 mg PO BID 10 days dulaglutide (Trulicity) 1.5 mg (0.5 mL) subcut QWEEK duloxetine 60 mg PO DAILY escitalopram oxalate 5 mg PO DAILY flash glucose scanning reader (FreeStyle Mary [place] 14 Day [place]) As directed flash glucose sensor (FreeStyle [place] 14 Day Sensor kit) 1 ea topical Q2W fluticasone propionate 50 mcg/actuation 2 sprays intranasal DAILY PRN fluticasone propionate 220 mcg/actuation (Flovent HFA) 1 puff PO BID [FOUR-PRONGED CANE As directed] glucose 12 grams (3 x 4 gram) PO Q15M hydrochlorothiazide 25 mg PO DAILY 90 days ibuprofen 800 mg PO TID PRN ipratropium-albuterol 0.5 mg-3 mg(2.5 mg base)/3 mL 3 mL inhalation QID PRN lancets (OneTouch Delica Lancets) Three times a day lancets (FreeStyle Lancets) As directed three time a day lancets (OneTouch Delica Plus Lancet) As directed-tests 4 X/day lancets (FreeStyle Lancets) As directed lidocaine 5% (Lidoderm) 1 patch topical DAILY 30 days [LIGHTWEIGHT WALKER WITH SEAT walker with seat] linaclotide (Linzess) 72 mcg PO QAM loratadine 10 mg PO DAILY 90 days lorazepam mg PO memantine 10 mg PO BID metformin 1 tablet in the morning and 2 tablets in evening PO; 30 days metoprolol succinate ER 50 mg PO DAILY 30 days montelukast 10 mg PO BEDTIME nystatin 1 appl topical TID peg 3350-electrolytes 236-22.74-6.74 -5.86 gram (Golytely) 240 mL PO Q10M 1 day pen needle, diabetic (BD Ultra-Fine Cindy Pen Needle) twice daily prednisone PO daily; Take 2 tabs daily x 5 days, then 1 tab x 5 days 10 days prednisone 40 mg (4 x 10 mg) PO DAILY pregabalin (Lyrica) 100 mg PO Q8H 30 days [ROLLATOR with SEAT As directed] sod phos mono-sod phos dibasic 1.5 gram (OsmoPrep) 4 tabs PO Q15M tiotropium-olodaterol 2.5-2.5 mcg/actuation (Stiolto Respimat) 2 puffs inhalation DAILY tizanidine 4 mg PO TID PRN tramadol 50 mg PO TID PRN 30 days valsartan 320 mg PO DAILY Do you need a note to return to daycare/school/sports/work: No HPI AWV HPI Details Patient comes in today for her Annual Medicare Wellness Exam AND follow up visit She continues to complain of increased diffuse pain and multiple joint pains - states that her fibromyalgia pain has been acting up a lot lately and that her current meds are not really helping with her pain much Notes that her left knee has also been hurting a lot lately and often tends to give out on her when she is walking States that her left wrist has also been bothering her a lot lately She is currently also on Axithromycin every other day - was prescribed by pulmonary along with oral Prednisone taper for her asthma flare up She denies any headaches or dizziness Denies any exertional chest pains No nausea/vomiting, no abdominal pain No change in bowel habits noted Had her mammogram done sometime earlier this year at [facility] She has not been to her hospital laboratory technician nor had a pap smear done in a few years now - prefers to see a female provider Had her colonoscopy last done in 2013 and is supposed to get a repeat colonoscopy next year (10 years) but states that she just received her Cologuard kit, which she plans to do ADAM Needs a few of her Rx refilled She did not get her follow up labs done prior to her visit today IPPE/AWV: c/o of Annual Wellness Visit, subsequent visit. Medical / Social History Reviewed Past Medical History Yes . [place] of Care / Care Team list updated Yes . Surgical/Hospitalization History Yes . Current Medications (including OTC and supplements) Yes . Family History Yes . Tobacco Control form Yes . AUDIT-C (Alcohol use) form Yes . Illicit drug use in Social History Yes . Current diagnosis of depression? Yes Appropriate PHQ2/PHQ9 completed Yes . Data entered by Acquisitions Analyst and reviewed by provider Home Safety Throw rugs? No Grab bars? No Raised toilet seats? No Working smoke detectors? Yes Working carbon monoxide detectors? Yes Data entered by Acquisitions Analyst and reviewed by provider Activities of Daily Living (ADLs) Difficulty bathing or showering? Yes Difficulty dressing? No Difficulty using the toilet? No Difficulty getting in and out of bed? No Difficulty walking? Yes Receives help from another person with any of the above tasks? Yes Instrumental Activities of Daily Living (IADLs) Uses the telephone without help Gets to places out of walking distance with help Goes shopping for groceries with help Prepares own meals with help Does own minor home maintenance with help Does own laundry with help Does own housework with help Manages own money without help Currently takes medications? Yes Takes medication without help End-of-Life Planning Discussed advance directive Yes Advance directive on file Discussed wishes expressed in advance directive agreed to following patient's wishes Fall Risk: Fall History Have you had any falls with injury in the past year? No . Have you had two or more falls in the past year? No . Fall Risk Assessment: No falls in the past year . HRA filled out by the patient, reviewed by Provider and scanned. [facility] Medical History Allergic rhinitis Anxiety Arthritis Asthma Benign essential hypertension Carcinoid tumor Chest pain Chronic bronchitis COPD (chronic obstructive pulmonary disease) Coronary artery disease Depression Dyspnea Fibromyalgia Gastroparesis GERD (gastroesophageal reflux disease) Hyperlipidemia LDL goal <70 Lumbar degenerative disc disease Morbid obesity with BMI of 40.0-44.9, adult Obstructive sleep apnea Post-thoracotomy pain syndrome Primary osteoarthritis of both knees Pulmonary nodules Pure hypercholesterolemia Sinusitis Stool incontinence Type 2 diabetes mellitus with diabetic polyneuropathy Type 2 diabetes mellitus with hyperglycemia, with long-term current use of insulin Vitamin D deficiency Surgical History History of cardiac cath (~07/2018) History of colonoscopy (~12/2013) History of esophagogastroduodenoscopy (EGD) (~10/2011) History of lobectomy of lung (~08/2016) History of lung biopsy (~07/2016) History of rectal sphincterotomy (~11/2013) History of tubal ligation Family History Father Stroke Hypertension Diabetes Mother Diabetes Hypertension Social History Household Members: Spouse Housing: Apartment Alcohol intake: never Patient Tobacco Use Status: Former Tobacco user Tobacco use type: Cigarette e-Cigarette/Vaping Use: Never Used Second Hand Smoke Exposure: Yes service: No Current occupational status: disabled Cognitive needs: No Hearing needs: No Vision needs: Yes Questionnaire Medicare Wellness Checkup What [age] What gender do you identify with?: female During the past 4 weeks, how much have you been bothered by emotional problems such as feeling anxious, depressed, irritable, sad or downhearted, and blue?: moderately During the past 4 weeks, has your physical & emotional health limited your social activities with family, friends, neighbors, or groups?: quite a bit During the past 4 weeks, how much bodily pain have you generally had?: severe pain During the past 4 weeks, was someone available to help you if you needed & wanted help?: yes, some During the past 4 weeks, what was the hardest physical activity you could do for at least 2 minutes?: very light Can you get to places out of walking distance without help? (For eg., can you travel alone on buses, taxis or drive your car?): Yes Can you go shopping for groceries or clothes without someone's help?: No Can you prepare your own meals?: No Can you do your housework without help?: No Because of any health problems, do you need the help of another person with your personal care needs such as eating, bathing, dressing or getting around the house?: Yes Can you handle your own money without help?: Yes During the past 4 weeks, how would you rate your health in general?: poor During the past 4 weeks how have things been going for you?: pretty well Are you having difficulties driving your car?: yes, often Do you always fasten your seat belt when you are in a car?: yes, sometimes During past 4 weeks, have you been bothered by the following: never: Sexual problems? and Trouble eating well?, sometimes: Falling or dizzy when standing up, Teeth or denture problems? and Problems using the telephone? and often: Tiredness or fatigue? Have you fallen 2 or more times in the past year?: Yes Are you afraid of falling?: Yes Are you a smoker?: no During the past 4 weeks, how many drinks of wine, beer, or other alcoholic beverages did you have?: no alcohol at all Do you exercise for about 20 minutes 3 or more times a week?: no, I usually do not exercise this much Have you been given information to help with the following?: yes: Keeping track of your medications? and no: Hazards in your house that might hurt you? How often do you have trouble taking medicines the way you have been told to take them?: I do not have to take medicine How confident are you that you can control & manage most of your health problems?: not very confident What is your race?: or origin or descent Mini Mental State Exam (MMSE) Orientation What is the (year) (season) (date) (day) (month)?: year, season, date, day and month Where are we (state) (county) (town or city) (hospital) (floor)?: state, county, town or city, hospital/clinic and floor Score Score: 10 Activity of Daily Living Bathing - sponge bath, tub bath or shower: receives help in bathing only one body part (such as back or leg) Dressing - getting clothes from closets & drawers, including inner/outer garments & fasteners.: gets clothes & gets completely dressed without help Toileting - going to the 'toilet room' for urine/bowel elimination & cleaning self/arranging clothes: goes to toilet room, cleans self, arranges clothes without help Transfer: moves in & out of bed or chair with help Continence: has occasional 'accidents' Feeding: feeds self without help Total Score: 0 Information obtained from: patient Using telephone: independent Traveling: needs assistance Shopping: needs assistance Preparing meals: needs assistance Housework: needs assistance Taking medicine: independent Managing money: independent PHQ-9 Over the last 2 weeks, how often have you been bothered by any of the following problems? 1. Little interest or pleasure in doing things: nearly every day 2. Feeling down, depressed, or hopeless: several days 3. Trouble falling or staying asleep, or sleeping too much: nearly every day 4. Feeling tired or having little energy: several days 5. Poor appetite or overeating: several days 6. Feeling bad about yourself - or that you are a failure or have let yourself or your family down: several days 7. Trouble concentrating on things, such as reading the newspaper or watching television: several days 8. Moving or speaking so slowly that other people could have noticed. Or the opposite - being so fidgety or restless that you have been moving around a lot more than usual: several days 9. Thoughts that you would be better off or of hurting yourself in some way: not at all Total score: 12 Depression Screening Interpretation: Positive Depression Screening Follow-up: Existing condition and In treatment 83725 - PHQ-9 Billing: Yes Source: Developed by Drs. Jeffrey Chavez, Marj Villatoro, Vaibhav Pagan and colleagues, with an educational norm from [employer]. PHQ-2/PHQ-9 PHQ-2 Over the last 2 weeks, how often have you been bothered by any of the following problems? 1. Little interest or pleasure in doing things: nearly every day 2. Feeling down, depressed, or hopeless: several days Total score: 4 If score is 3 or greater, continue 3. Trouble falling or staying asleep, or sleeping too much: nearly every day 4. Feeling tired or having little energy: several days 5. Poor appetite or overeating: several days 6. Feeling bad about yourself - or that you are a failure or have let yourself or your family down: several days 7. Trouble concentrating on things, such as reading the newspaper or watching television: several days 8. Moving or speaking so slowly that other people could have noticed. Or the opposite - being so fidgety or restless that you have been moving around a lot more than usual: several days 9. Thoughts that you would be better off or of hurting yourself in some way: not at all Total score: 12 0-4 None-Minimal, 5-9 Mild, 10-14 Moderate, 15-19 Moderately Severe, 20-27 Severe Source: Developed by Drs. Jeffrey Chavez, Marj Villatoro, Vaibhav Pagan and colleagues, with an educational norm from [employer]. Thrive Questionnaire Date Thrive assessed: 11/13/22 I am a: Patient What is your living situation today?: I have a steady place to live Within the past 12 months, did the food you bought not last and you didn't have the money to get more?: Never true Within the past 12 months, did you worry whether your food would run out before you got money to buy more?: Never true Do you have trouble paying for medicines?: No Do you have trouble getting transportation to medical appointments?: No Do you have trouble paying your heating and electricity bill?: No Do you have trouble taking care of your child, family member or friend?: No Do you have trouble with day-to-day activities such as bathing, preparing meals, shopping, managing finances, etc.?: No Are you currently unemployed and looking for a job?: No Are you interested in more education?: No Please select the resources that you would like help with: None Currently or been in a relationship where the following occur: no concerns reported EVELINE-7 AMB Questionnaire EVELINE-7 Date EVELINE - 7 assessed: 11/13/22 Feeling nervous, anxious, or on edge: 1 = Several days Not being able to stop or control worryin = Several days Worrying too much about different things: 1 = Several days Trouble relaxin = Several days Being so restless that it is hard to sit still: 0 = Not at all Becoming easily annoyed or irritable: 0 = Not at all Feeling afraid as if something awful might happen: 0 = Not at all Total EVELINE-7 score (0-4 normal; 5-9 mild; 10-14 moderate; 15-21 severe): 4 Source: Developed by Drs. Jeffrey Chavez, Marj Villatoro, Vaibhav Pagan and colleagues, with an educational norm from [employer]. Review of Systems Const Reports daytime sleepiness, Reports difficulty sleeping (at night), Reports fatigue, Denies fever(s) and Denies headache(s) ENT Denies dysphagia, Denies dizziness, Denies otalgia, Denies headache(s), Denies odynophagia and Denies sore throat Card Denies chest pain, Denies palpitations and Reports dyspnea on exertion Resp Reports chest congestion (on and off), Reports cough (on and off; has asthma flare up lately), Denies pain with cough, Reports dyspnea on exertion and Reports wheezing (at times) GI Denies abdominal pain, Denies constipation, Denies dysphagia, Denies heartburn, Reports fecal incontinence, Denies diarrhea, Denies nausea, Denies odynophagia and Denies vomiting Denies difficulty voiding, Denies nocturia, Denies dysuria and Reports urinary incontinence (at times) Musc Details: (+) increasing bilatral hip pain and inguinal pain when walking Reports back pain (especially over the right lower back), Reports arthralgias (left shoulder; both knees - increasing lately; left wrist) and Reports numbness (in both feet, on and off) Neuro Denies dizziness, Denies headache(s), Reports numbness (in both feet, on and off) and Reports paresthesias (in both feet) Endo Reports fatigue and Denies palpitations Aller/Immun Reports wheezing (at times) Physical Exam Vital Signs: Last Vital Signs Pulse 79 11/13/22 09:04 BP 120/72 11/13/22 09:04 Pulse Ox 96 11/13/22 09:04 Oxygen Delivery Method Room Air 11/13/22 09:04 BMI result Body Mass Index 41.3 IPPE/AWV: Balance Romberg No. Tandem walk No. Walk and Turn No. Rise from sit to stand No. Vision Corrective lens No Vision screen pass Hearing Whisper test pass . Urinary incont. yes. EKG Not clinically necessary. Const General: no acute distress and alert HEENT Ears: TM's normal bilaterally and EAC's normal Throat: Yes posterior oropharynx normal and Yes tonsils normal (no TP congestion noted) Neck Neck: Yes no lymphadenopathy and Yes supple Resp Auscultation: no rales, rhonchi ((+) scattered rhonchi) throughout and no wheezes Cardio Rate: regular rate Rhythm: regular rhythm Heart sounds: no murmurs GI Palpation (GI): Soft to palpation and nontender Auscultation: normal bowel sounds Back/Spine/Pelvis Thoracic/Lumbar Spine: lumbar spinal tenderness Skin Rashes: no rashes Extrem General: Yes no clubbing, cyanosis or edema Left upper extremity: wrist (increased tenderness - currently has a wrist splint/brace on) Right lower extremity: knee Details: tenderness Left lower extremity: knee Details: tenderness Assessment & Plan Assessment & Plan (1) Medicare annual wellness visit, subsequent: Code(s): Z00.00 - Encounter for general adult medical examination without abnormal findings Plan: HRA form completed and discussed with patient; form will be scanned into patient's chart She will be due for repeat colonoscopy next year (2023) but has decided to just do Cologuard testing at this time - states that she just received her Cologuard test kit Also reportedly had her mammogram done at [facility] sometime this year (2) Coronary artery disease: Code(s): I25.10 - Atherosclerotic heart disease of [place] coronary artery without angina pectoris Qualifiers: Associated angina: without angina Coronary Disease-Associated Artery/Lesion type: [place] artery [place] vs. transplanted heart: [place] heart Qualified Code(s): I25.10 - Atherosclerotic heart disease of [place] coronary artery without angina pectoris Plan: S/P cardiac cath on 07/2018 with very mild disease seen Continue aggressive risk factor reduction and low dose Aspirin 81 mg QD Follow up with cardiology as scheduled (3) Benign essential hypertension: Code(s): I10 - Essential (primary) hypertension Plan: Reinforced low sodium diet - goal is systolic BP of at least 120 to 130 mm or less Continue HCTZ 25 mg QD, Metoprolol ER 50 mg QD and Valsartan 320 mg QD (4) Type 2 diabetes mellitus with hyperglycemia, with long-term current use of insulin: Code(s): E11.65 - Type 2 diabetes mellitus with hyperglycemia; Z79.4 - penitentiary (current) use of insulin Plan: HgbA1c was at 6.9% a few months ago - goal is <7.0% Reinforced diabetic diet Repaglinide 0.5 mg was increased to 1 tablet before breakfast and 2 tablets before dinner recently by endocrinology Continue Metformin 500 mg 1 tablet in AM and 2 tablets in the evening and Trulicity 1.5 mg SQ once a week Follow up with endocrinology as scheduled (5) Pure hypercholesterolemia: Code(s): E78.00 - Pure hypercholesterolemia, unspecified Plan: She did not get her follow up labs done prior to her visit today Reinforced low cholesterol diet Continue Atorvastatin 40 mg QD Will recheck her labs and fasting lipids in 3 months for follow-up (6) Carcinoid tumor: Comment: (S/P [place] [facility] [place]) Code(s): D3A.00 - Benign carcinoid tumor of unspecified site Qualifiers: Carcinoid tumor location: lung Carcinoid tumor malignancy status: malignant Qualified Code(s): 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 Waggoner on 09/02/[address] done in October 2019 showed stable findings with (+) pulmonary nodules that appear benign Was seen by pulmonary and recommended to continue yearly chest CT for follow up - repeat due in 09/2023 Follow up with pulmonary, Dr. Waggoner and with oncology as scheduled for continuing surveillance (7) Asthma: Code(s): J45.909 - Unspecified asthma, uncomplicated Qualifiers: Asthma complication type: with acute exacerbation Asthma persistence: persistent Asthma severity: moderate Qualified Code(s): J45.41 - Moderate persistent asthma with (acute) exacerbation Plan: Stable with no exacerbations lately Continue Stiolto Respimat 2.5-2.5 mcg 2 inhalations QD, Flovent HFA 220 mcg 1 inhalation BID, Montelukast 10 mg QD and Ventolin HFA 2 inhalations Q 6 hours PRN Patient also has Ipratropium-albuterol (Duoneb) solution to use via her nebulilzer 4 times a day as needed She was started recently on Azithromycin 250 mg TIW and oral Prednisone taper for her asthma exacerbation Follow up with pulmonary as scheduled (8) Allergic rhinitis: Code(s): J30.9 - Allergic rhinitis, unspecified Qualifiers: Allergic rhinitis seasonality: unspecified Allergic rhinitis trigger: unspecified Qualified Code(s): J30.9 - Allergic rhinitis, unspecified Plan: Continue Loratadine 10 mg QD PRN, Montelukast 10 mg QD and Fluticasone 50 mcg nasal spray 2 sprays into each nostril QD (9) Obstructive sleep apnea: Comment: no evidence of ILDEFONSO on recent inlab PSG Code(s): G47.33 - Obstructive sleep apnea (adult) (pediatric) Plan: Continue using her CPAP device at night when sleeping (10) GERD (gastroesophageal reflux disease): Code(s): K21.9 - Gastro-esophageal reflux disease without esophagitis Qualifiers: Esophagitis presence: without esophagitis Qualified Code(s): K21.9 - Gastro-esophageal reflux disease without esophagitis Plan: Dietary restrictions reinforced Continue Dexilant 60 mg QD Follow up with GI as scheduled (11) Stool incontinence: Comment: (+) Hx of sphincterotomy in 2014 - Dr. Sidhu Code(s): R15.9 - Full incontinence of feces Qualifiers: Fecal incontinence type: unspecified Qualified Code(s): R15.9 - Full incontinence of feces Plan: Patient wears adult pull-ups regularly due to this condition, which is mostly a result of her previous sphincterotomy (12) Lumbar degenerative disc disease: Code(s): M51.36 - Other intervertebral disc degeneration, lumbar region Plan: Reinforced activity and weight-lifting restrictions Continue on Tizanidine 4 mg TID PRN, Ibuprofen 800 mg TID PRN with food, Tramadol 50 mg TID PRN and Duloxetine 60 mg QD She was referred to pain management last year but unclear why she was never scheduled for an appointment; was referred again to pain management by orthopedics last week (13) Primary osteoarthritis of both knees: Code(s): M17.0 - Bilateral primary osteoarthritis of knee Plan: X-rays of both knees done last year showed (+) moderate OA changes bilaterally Repeat knee x-rays done a few months ago showed (+) mild degenerative arthritic changes in the medial and patellofemoral compartments of both knees without any loose bodies. There is no joint effusion seen Follow up with orthopedics as scheduled Have advised patient to discuss with orthopedics her recent knee issues, and that all these are mostly related to her osteoarthritis (14) Fibromyalgia: Code(s): M79.7 - Fibromyalgia Plan: Reminded again that a lot of her diffuse pain is due to her fibromyalgia Regular exercise can normally help patients manage their fibromyalgia symptoms better but patient's activity tolerance and exercise capacity are very poor in part, due to her multiple comorbidities Has been on Pregabalin 100 mg TID, which she states have not really helped much Will try increasing her Pregabalin now to 150 mg TID Continue Tizanidine 4 mg TID PRN and Duloxetine 60 mg QD (15) Bilateral hip pain: Code(s): M25.551 - Pain in right hip; M25.552 - Pain in left hip Plan: X-rays of both hips done a few months ago showed (+) OA changes in the left hip; right hip appears normal Consider referral to orthopedics if her hip pain increases (16) Depression: Code(s): F32.9 - Major depressive disorder, single episode, unspecified Qualifiers: Active/Remission status: currently active Depression Type: major depressive disorder Major depression episode severity: unspecified Major depression recurrence: recurrent Qualified Code(s): F33.9 - Major depressive disorder, recurrent, unspecified Plan: Continue Duloxetine 60 mg QD Follow up with psychiatry as scheduled (17) Morbid obesity with BMI of 40.0-44.9, adult: Code(s): E66.01 - Morbid (severe) obesity due to excess calories; Z68.41 - Body mass index [BMI] 40.0-44.9, adult Plan: Reinforced diet; exercise and weight loss are unrealistic given patient's multiple comorbidities (18) Cervical cancer screening: Code(s): Z12.4 - Encounter for screening for malignant neoplasm of cervix Plan: Will refer her to gynecology for her annual pap smear and 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 Panel Fast 3 Months E78.00 - Pure hypercholesterolemia, unspecified Hemoglobin A1c 3 Months E11.9 - Type 2 diabetes mellitus without complications TSH reflex Free T4 3 Months E78.00 - Pure hypercholesterolemia, unspecified UA CC w/rflx Micro + Cult 3 Months R30.0 - Dysuria Microalbumin, Random (w Creat) 3 Months E11.9 - Type 2 diabetes mellitus without complications Vitamin D 25-OH Total 3 Months E55.9 - Vitamin D deficiency, unspecified Referrals [employer] SUPER[employer] Referral Z12.4 - Encounter for screening for malignant neoplasm of cervix Medications: Refilled [DISPOSABLE WIPES] As directed 100 ea 12RF R15.9 - Full incontinence of feces duloxetine 60 mg PO DAILY 90 caps 3RF hydrochlorothiazide 25 mg PO DAILY 90 days 90 tabs 1RF I10 - Essential (primary) hypertension pregabalin 150 mg PO Q8H 30 days 90 caps 0RF tramadol 50 mg PO TID 30 days PRN 90 tabs 0RF pain Quality Reporting (2019) Depression/Bipolar (159/160/161/177) PHQ-9: Total score: 12 Coding Level of Care Code Medicare Subsequent (G0439) Est Pt Level 4 (74669) Diagnoses Medicare annual wellness visit, subsequent Z00.00 Coronary artery disease I25.10 Associated angina: without angina Coronary Disease-Associated Artery/Lesion type: [place] artery [place] vs. 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 Asthma J45.41 Asthma complication type: with acute exacerbation Asthma persistence: persistent Asthma severity: moderate Allergic rhinitis J30.9 Allergic rhinitis seasonality: unspecified Allergic rhinitis trigger: unspecified Obstructive sleep apnea G47.33 GERD (gastroesophageal reflux disease) K21.9 Esophagitis presence: without esophagitis Stool incontinence R15.9 Fecal incontinence type: unspecified Lumbar degenerative disc disease M51.36 Primary osteoarthritis of both knees M17.0 Fibromyalgia M79.7 Bilateral hip pain M25.551; M25.552 Depression F33.9 Active/Remission status: currently active Depression Type: major depressive disorder Major depression episode severity: unspecified Major depression recurrence: recurrent Morbid obesity with BMI of 40.0-44.9, adult E66.01; Z68.41 Cervical cancer screening Z12.4
== END 2022-11-13 09:49 | disposition home or self-care (01) ==
PROVIDERS: PCP Internal Medicine; Visit Provider Internal Medicine
DX: I10 Essential (primary) hypertension (principal); E11.65 Type 2 diabetes mellitus with hyperglycemia; Z79.4 Long term (current) use of insulin; C7A.090 Malignant carcinoid tumor of the bronchus and lung; J45.41 Moderate persistent asthma with (acute) exacerbation; I25.10 Atherosclerotic heart disease of native coronary artery without angina pectoris; E78.00 Pure hypercholesterolemia, unspecified; J30.9 Allergic rhinitis, unspecified; G47.33 Obstructive sleep apnea (adult) (pediatric); K21.9 Gastro-esophageal reflux disease without esophagitis; R15.9 Full incontinence of feces
CPT/HCPCS: 99214; G0439

== ENCOUNTER 2022-11-17 10:47 | Outpatient (AMB) | payer MEDICARE, MEDICAID, SELFPAY ==
--- NOTE | 2022-11-17 11:01 | A.OFFVIS_ITS ---
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 Patient recently evaluated by Dr Duggan for bilateral knee OA, he then referred her to us for her lower back pain. Patient c/o right lower back pain and left upper back pain for several years. She reports both areas are tender to palpation. She has never been to PT for either pain. She has tried muscle relaxers, NSAIDs and Tramadol with limited benefit. She is currently taking lyrica prescribed by PCP with some relief of her pain. She uses topical lidocaine patches to right lower back and states that helps. She had steroid injections in both knees, had left knee injected less than one month ago. She is known diabetic and states steroid injections do cause increase in her blood glucose levels but she monitors them closely. Patient denies red flag symptoms including new loss of bowel, bladder or saddle anesthesia. In terms of muscle damage condition is described as spasming, hot, burning and squeezing. Pain is negatively impacting her general activity, mood and walking. She also c/o pain, burning, numbness and tingling to bilateral feet. Reports having EMG in the past and was told she has diabetic neuropathy. [facility] Medical History Allergic rhinitis Anxiety Arthritis Asthma Benign essential hypertension Carcinoid tumor Chest pain Chronic bronchitis COPD (chronic obstructive pulmonary disease) Coronary artery disease Depression Dyspnea Fibromyalgia Gastroparesis GERD (gastroesophageal reflux disease) Hyperlipidemia LDL goal <70 Lumbar degenerative disc disease Morbid obesity with BMI of 40.0-44.9, adult Obstructive sleep apnea Post-thoracotomy pain syndrome Primary osteoarthritis of both knees Pulmonary nodules Pure hypercholesterolemia Sinusitis Stool incontinence Type 2 diabetes mellitus with diabetic polyneuropathy Type 2 diabetes mellitus with hyperglycemia, with long-term current use of insulin Vitamin D deficiency Surgical History History of cardiac cath (~07/2018) History of colonoscopy (~12/2013) History of esophagogastroduodenoscopy (EGD) (~10/2011) History of lobectomy of lung (~08/2016) History of lung biopsy (~07/2016) History of rectal sphincterotomy (~11/2013) History of tubal ligation Family History Father Stroke Hypertension Diabetes Mother Diabetes Hypertension Social History Household Members: Spouse Housing: Apartment Alcohol intake: never Patient Tobacco Use Status: Former Tobacco user Tobacco use type: Cigarette e-Cigarette/Vaping Use: Never Used Second Hand Smoke Exposure: Yes service: No Current occupational status: disabled Cognitive needs: No Hearing needs: No Vision needs: Yes Review of Systems Const All systems reviewed & are unremarkable except as noted in HPI and below Physical Exam Vital Signs: Last Vital Signs Pulse 86 11/17/22 11:08 Resp 16 11/17/22 11:08 BP 122/58 L 11/17/22 11:08 Pulse Ox 95 11/17/22 11:08 Oxygen Delivery Method Room Air 11/17/22 11:08 BMI result Body Mass Index 41.1 General: awake, alert, oriented. Answers questions appropriately. Fully engaged in examination. Skin: warm, dry, intact HEENT: Normocephalic. Hearing intact. Cardiac: External chest normal in appearance. Respiratory: No cough, audible wheezing or stridor. Abdomen: without gross distension. MS: No obvious swelling or deformities. Able to transition from sit to stand unassisted. Ambulates with bilaterally normal heel strike and toe off, utilizes cane for assistance with ambulation. Tenderness to palpation over left Trapezius muscle Tenderness to palpation right lower back, nontender to palpation over lumbar vertebrae Tenderness to palpation over Right PSIS SLR with and without dorsiflexion negative bilaterally Danny positive on Right Thigh thrust positive on Right Neurological: Oriented to person, place, time and situation. Thought process intact. Psychiatric: Appropriate mood and affect. Good judgment and insight. Assessment & Plan Assessment & Plan (1) Polyarthralgia: Code(s): M25.50 - Pain in unspecified joint (2) Trapezius muscle strain: Code(s): S46.819A - Strain of other muscles, fascia and tendons at shoulder and upper arm level, unspecified arm, initial encounter (3) Muscle pain, lumbar: Code(s): M79.18 - Myalgia, other site (4) Fibromyalgia: Code(s): M79.7 - Fibromyalgia (5) Lumbar degenerative disc disease: Code(s): M51.36 - Other intervertebral disc degeneration, lumbar region (6) Diabetic neuropathy: Code(s): E11.40 - Type 2 diabetes mellitus with diabetic neuropathy, unspecified (7) Sacroiliac joint dysfunction of right side: Code(s): M53.3 - Sacrococcygeal disorders, not elsewhere classified (8) Myofascial muscle pain: Code(s): M79.18 - Myalgia, other site Plan Radha is a very pleasant 67 year old female who presented to the office today for evaluation and management of her chronic pain. Patient has been diagnosed in the past with fibromyalgia, currently presents with polyarthralgia. She has not been previously evaluated by Rheumatology, referral placed today. Right upper trapezius muscle strain/left lumbar muscle strain/myofascial back pain: she has never attempted PT. Order placed today. C/W lidocaine patches, she reports having at home, no refill needed. C/W current medications as prescribed by PCP. Right sacroiliac joint dysfunction: order placed for PT eval and treat. If patient's pain does not improve with conservative treatment consider Fluoroscopy guided diagnostic right SIJ injection with local anesthetic. Diabetic neuropathy: Qutenza discussed with patient today. Pamphlet provided. patient will review and if she would like to proceed with in office Qutenza application will call the office to schedule. Patient will follow up here after several weeks of PT. She will call the office to schedule Qutenza if she wishes to proceed. Orders: Orders PT Evaluation and Treatment Today M53.3 - Sacrococcygeal disorders, not elsewhere classified, M79.18 - Myalgia, other site, S46.819A - Strain of other muscles, fascia and tendons at shoulder and upper arm level, unspecified arm, initial encounter XR lumbar spine 4V min Today M51.36 - Other intervertebral disc degeneration, lumbar region Referrals Rheumatology Referral M25.50 - Pain in unspecified joint Coding Level of Care Code New Pt Level 4 (69359) Diagnoses Polyarthralgia M25.50 Trapezius muscle strain S46.819A Muscle pain, lumbar M79.18 Fibromyalgia M79.7 Lumbar degenerative disc disease M51.36 Diabetic neuropathy E11.40 Sacroiliac joint dysfunction of right side M53.3 Myofascial muscle pain M79.18
[2022-11-17 11:08] VITALS: BP 122/58; PULSE 86; RESP 16; O2SAT 95; BMI 41.1
== END 2022-11-17 11:45 | disposition home or self-care (01) ==
PROVIDERS: PCP Internal Medicine; Visit Provider Registered Nurse Emergency
DX: M25.50 Pain in unspecified joint (principal); S46.819A Strain of other muscles, fascia and tendons at shoulder and upper arm level, unspecified arm, initial encounter; M79.7 Fibromyalgia; M51.36 Other intervertebral disc degeneration, lumbar region; E11.40 Type 2 diabetes mellitus with diabetic neuropathy, unspecified; M53.3 Sacrococcygeal disorders, not elsewhere classified
CPT/HCPCS: 99204; 99214

== ENCOUNTER → 2022-11-17 10:47 | Outpatient (BNVA) | payer MEDICARE, MEDICAID, SELFPAY | PROVIDERS: PCP Internal Medicine; Visit Provider Registered Nurse Emergency ==

== ENCOUNTER 2022-11-27 09:26 | Outpatient (AMB) | payer MEDICARE, MEDICAID, SELFPAY ==
--- NOTE | 2022-11-27 09:43 | MHC.OFFVIS ---
Intake Vital Signs 11/27/22 09:48 Height 5 ft 3 in Weight 238 lb BMI 42.2 BP 130/80 Blood Pressure Location Lt brachial Position Sitting Pulse 71 Pulse Oximetry (%) 100 Intake Visit Reasons: 1 year follow up Allergies nitrofurantoin Allergy (Intermediate, Verified 11/27/22 09:50) itching and redness (in the legs) Medication List - Last Reconciled 11/27/22 by Pratibha Waggoner MD [ADULT BRIEFS (size XL) As directed] [ADULT PULL-UPS (size XL) As directed] albuterol sulfate 90 mcg/actuation 2 puffs inhalation QID PRN albuterol sulfate 2.5 mg (3 mL) inhalation Q4-6H PRN alcohol swabs 1 pad topical TID amitriptyline 25 mg PO BEDTIME amitriptyline 50 mg PO BEDTIME aspirin 81 mg PO DAILY 90 days atorvastatin 40 mg PO DAILY azithromycin 250 mg PO 3XW 28 days benzonatate 200 mg PO BID PRN 30 days benzonatate 200 mg PO BID PRN 30 days blood pressure monitor As directed blood sugar diagnostic (OneTouch Verio test strips) Three times a day blood sugar diagnostic (OneTouch Verio test strips) As directed tests 4X/day blood-glucose meter Three times a day blood-glucose meter (OneTouch Verio Flex Meter) As directed trsts 4 X/day cholecalciferol (vitamin D3) 50 mcg PO DAILY 90 days dexlansoprazole (Dexilant) 60 mg PO DAILY [DISPOSABLE WIPES As directed] doxycycline hyclate 100 mg PO BID 10 days dulaglutide (Trulicity) 1.5 mg (0.5 mL) subcut QWEEK duloxetine 60 mg PO DAILY escitalopram oxalate 5 mg PO DAILY flash glucose scanning reader (ViewabillStyle [place] 14 Day [place]) As directed flash glucose sensor (FreeStyle [place] 14 Day Sensor kit) 1 ea topical Q2W fluticasone propionate 50 mcg/actuation 2 sprays intranasal DAILY PRN fluticasone propionate 220 mcg/actuation (Flovent HFA) 1 puff PO BID [FOUR-PRONGED CANE As directed] glucose 12 grams (3 x 4 gram) PO Q15M hydrochlorothiazide 25 mg PO DAILY 90 days ibuprofen 800 mg PO TID PRN ipratropium-albuterol 0.5 mg-3 mg(2.5 mg base)/3 mL 3 mL inhalation QID PRN lancets (OneTouch Delica Lancets) Three times a day lancets (FreeStyle Lancets) As directed three time a day lancets (OneTouch Delica Plus Lancet) As directed-tests 4 X/day lancets (FreeStyle Lancets) As directed lidocaine 5% (Lidoderm) 1 patch topical DAILY 30 days [LIGHTWEIGHT WALKER WITH SEAT walker with seat] linaclotide (Linzess) 72 mcg PO QAM loratadine 10 mg PO DAILY 90 days lorazepam mg PO memantine 10 mg PO BID metformin 1 tablet in the morning and 2 tablets in evening PO; 30 days metoprolol succinate ER 50 mg PO DAILY 30 days montelukast 10 mg PO BEDTIME nystatin 1 appl topical TID peg 3350-electrolytes 236-22.74-6.74 -5.86 gram (Golytely) 240 mL PO Q10M 1 day pen needle, diabetic (BD Ultra-Fine Cindy Pen Needle) twice daily prednisone PO daily; Take 2 tabs daily x 5 days, then 1 tab x 5 days 10 days prednisone 40 mg (4 x 10 mg) PO DAILY pregabalin 150 mg PO Q8H 30 days [ROLLATOR with SEAT As directed] Shower Chair As directed sod phos mono-sod phos dibasic 1.5 gram (OsmoPrep) 4 tabs PO Q15M tiotropium-olodaterol 2.5-2.5 mcg/actuation (Stiolto Respimat) 2 puffs inhalation DAILY tizanidine 4 mg PO TID PRN tramadol 50 mg PO TID PRN 30 days valsartan 320 mg PO DAILY HPI 1 year follow up HPI Details 67-year-old woman who underwent a 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 Her 1st CT scan compared with 6 months ago showed no new changes or evidence of recurrence.? There was a small nodule we were following in the left lower lobe that has disappeared.? There is no mediastinal lymphadenopathy and no pleural effusion.? A no other follow-up CT scan of the chest was done on 08/29/2021 which showed no new nodule and no evidence of recurrence or or new disease. There is no pleural fluid and no mediastinal lymphadenopathy. As per protocol a 1 year follow-up CT scan of the chest was done on 10/16/2022 which was reviewed interpreted by me directly showing no evidence of recurrence or new disease. There is no lymphadenopathy and no pleural fluid. She does have some right hip pain and asked if there is any relation to her surgery.? This is not likely. She denies fevers, chills, unintentional weight loss, or fatigue. She denies chest pain, cough, or hemoptysis. She does have stable shortness of breath. She does occasionally get right sided chest/upper abdominal pain which she takes a muscle relaxer for which seems to help. I think this is unlikely related to her surgery. Other than above, 12 point review of systems was done and documented separately in the office chart with detailed social and family history. ? [facility] Medical History Fibromyalgia Chronic bronchitis Vitamin D deficiency Post-thoracotomy pain syndrome Sinusitis Chest pain Gastroparesis Arthritis COPD (chronic obstructive pulmonary disease) Dyspnea Stool incontinence Depression Anxiety Type 2 diabetes mellitus with diabetic polyneuropathy Hyperlipidemia LDL goal <70 Pulmonary nodules Allergic rhinitis Primary osteoarthritis of both knees GERD (gastroesophageal reflux disease) Morbid obesity with BMI of 40.0-44.9, adult Asthma Obstructive sleep apnea Lumbar degenerative disc disease Carcinoid tumor Coronary artery disease Pure hypercholesterolemia Benign essential hypertension Type 2 diabetes mellitus with hyperglycemia, with long-term current use of insulin Surgical History History of colonoscopy (~12/2013) History of tubal ligation History of lung biopsy (~07/2016) History of esophagogastroduodenoscopy (EGD) (~10/2011) History of lobectomy of lung (~08/2016) History of rectal sphincterotomy (~11/2013) History of cardiac cath (~07/2018) Family History Father Stroke Hypertension Diabetes Mother Diabetes Hypertension Social History Household Members: Spouse Housing: Apartment Alcohol intake: never Patient Tobacco Use Status: Former Tobacco user Tobacco use type: Cigarette e-Cigarette/Vaping Use: Never Used Second Hand Smoke Exposure: Yes service: No Current occupational status: disabled Cognitive needs: No Hearing needs: No Vision needs: Yes Physical Exam Vital Signs: Last Vital Signs Pulse 71 11/27/22 09:48 BP 130/80 11/27/22 09:48 Pulse Ox 100 11/27/22 09:48 BMI result Body Mass Index 42.2 General: No acute distress HEENT: Moist mucous membranes, normocephalic, pupils equal round and reactive to light. Neck: No thyromegaly, supple, no JVD Lymph: No cervical, supraclavicular, or other lymphadenopathy Chest: No chest wall abnormalities or deformities wounds are well healed Heart: Regular rate and rhythm Lungs: Clear to auscultation bilaterally Abdomen: Soft, nontender, normal bowel sounds Extremities: No edema, cyanosis, or clubbing. 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 I described the findings on the CT scan with her in detail which he seemed understand. I also explained that the protocol after surgery for carcinoid tumor is to follow with yearly CT scans up to 10 years after the operation. All questions were answered. Plan will then be for a CT scan of the chest to be done at [place] in 1 year followed by a visit with me in the office at [facility] as per her preference. 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
[2022-11-27 09:48] VITALS: BP 130/80; PULSE 71; O2SAT 100; BMI 42.2
== END 2022-11-27 10:03 | disposition home or self-care (01) ==
PROVIDERS: PCP Internal Medicine; Visit Provider Surgery
DX: C7A.090 Malignant carcinoid tumor of the bronchus and lung (principal)

== ENCOUNTER → 2022-11-27 09:26 | Outpatient (BNVA) | payer MEDICARE, MEDICAID, SELFPAY | PROVIDERS: PCP Internal Medicine; Visit Provider Surgery | DX: C7A.090 Malignant carcinoid tumor of the bronchus and lung (principal); Z90.2 Acquired absence of lung [part of] | CPT/HCPCS: 99212 ==

== ENCOUNTER 2022-12-01 14:04 | Outpatient (AMB) | payer MEDICARE, MEDICAID, SELFPAY ==
[2022-12-01 14:06] VITALS: BP 128/60; PULSE 65; BMI 42.4
--- NOTE | 2022-12-01 14:06 | A.OFFVIS_ITS ---
Intake Vital Signs 12/01/22 14:06 Height 5 ft 3 in Weight 239 lb 3.225 oz BMI 42.4 BP 128/60 Blood Pressure Location Rt brachial Position Sitting Pulse 65 Pulse Source Pulse Oximeter Intake Visit Reasons: T2DM/lvm Intake Note: Patient present today to follow up on Type 2 Diabetes Mellitus. Last Diabetic Eye exam: 08/12/2022 Last Podiatry Visit: 09/14/2022 Random Glucose: 234 mg/dl HgA1C: 8.5% Hydraulic Tester Required: Yes Hydraulic Tester Language: Cop Examiner Name: Juan R- medical staff Information Interpreted: non-clinical & clinical Accompanied by: Self / Same As Patient Allergies nitrofurantoin Allergy (Intermediate, Verified 12/01/22 14:12) itching and redness (in the legs) HPI HPI Comments History of Present Illness Details Patient is 67 yo female with DM type 2 diagnosed around 2014, who presents for management her diabetes.. Past medical history:DM2, HTN, HLD, COPD, ILDEFONSO, gastroparesis Micro and macrovascular complications: neuropathy Diabetes medications: metformin 500 BID . Trulicity 1.5 mg Qwkly, Continuous glucose monitoring: From 9623-96100 average blood glucose was 201 Glucose management indicator 8.1%. Glucose variability 23.6%. Patient had no low blood glucose. Blood glucose in target range of 70-180, 38 %. Blood glucose high from 181-250,46 %. Blood glucose very high over 250 16%. . Patent shows persistent hyperglycemia throughout the day with post-breakfast spikes No Hypoglycemic symptoms: Hyperglycemic symptoms: denies polyuria, occasional nocturia Exercise: walking on occasion, but has difficulty because falls a lot. Eye exam: appt 08/12/22 , denies retinopathy, report pending Took prednisone up to yesterday Laboratory Tests 02/13/21 02/13/21 02/13/21 09:48 09:48 09:48 Creatinine 0.77 Estimated GFR > 60 Hemoglobin A1c % 7.8 Triglycerides 84 Cholesterol 121 LDL Cholesterol, C alc 72 HDL Cholesterol 33 25-OH Vitamin D To brynn 21.0 TSH 1.84 Microalb/Creat Rat io 4.3 11/12/20 11/12/20 11/12/20 11:53 11:53 11:53 Creatinine 0.75 Estimated GFR > 60 Hemoglobin A1c % 8.3 Triglycerides 66 Cholesterol 124 LDL Cholesterol, C alc 73 HDL Cholesterol 38 Microalb/Creat Rat io 6.3 PFSH Medical History Fibromyalgia Chronic bronchitis Vitamin D deficiency Post-thoracotomy pain syndrome Sinusitis Chest pain Gastroparesis Arthritis COPD (chronic obstructive pulmonary disease) Dyspnea Stool incontinence Depression Anxiety Type 2 diabetes mellitus with diabetic polyneuropathy Hyperlipidemia LDL goal <70 Pulmonary nodules Allergic rhinitis Primary osteoarthritis of both knees GERD (gastroesophageal reflux disease) Morbid obesity with BMI of 40.0-44.9, adult Asthma Obstructive sleep apnea Lumbar degenerative disc disease Carcinoid tumor Coronary artery disease Pure hypercholesterolemia Benign essential hypertension Type 2 diabetes mellitus with hyperglycemia, with long-term current use of insulin Surgical History History of colonoscopy (~12/2013) History of tubal ligation History of lung biopsy (~07/2016) History of esophagogastroduodenoscopy (EGD) (~10/2011) History of lobectomy of lung (~08/2016) History of rectal sphincterotomy (~11/2013) History of cardiac cath (~07/2018) Family History Father Stroke Hypertension Diabetes Mother Diabetes Hypertension Social History Household Members: Spouse Housing: Apartment Alcohol intake: never Patient Tobacco Use Status: Former Tobacco user Tobacco use type: Cigarette e-Cigarette/Vaping Use: Never Used Second Hand Smoke Exposure: Yes service: No Current occupational status: disabled Cognitive needs: No Hearing needs: No Vision needs: Yes Physical Exam Vital Signs: Last Vital Signs Pulse 65 12/01/22 14:06 BP 128/60 12/01/22 14:06 BMI result Body Mass Index 42.4 Absence of Cushingoid features. Absence of acromegalic features. Neck exam reveals nl size thyroid about 15 gms. No thyroid nodules palpable. No carotid bruits present. Lungs CTA. Heart S1 S2, Reg R/R. No M/R/ G. Skin exam reveals absence of vitiligo or acanthosis nigricans. Abdominal exam reveals Soft NT/ND with NA BS. No organomegaly present. Neck Other: . Extrem Other: Visual exam of foot performed. No ulcerations or open lesions. No onchomycosis, no callouses.Pulses 2 + distally Sensation intact to monofilament exam. Vibratory sensation sensed is intact with 128 Hz tuning fork Results AMB Hemoglobin A1c AMB Hemoglobin A1c 8.5 % Last Edit by Maryanne Koehler on 12/01/22 14:29 Results Reviewed Results Reviewed: 12/01/22 14:19 Glucose, Whole Blood Routine Laboratory Last Values Glucose (Clinic) 234 mg/dL (60-115) H 12/01/22 14:19 Assessment & Plan Assessment & Plan (1) Type 2 diabetes mellitus with diabetic polyneuropathy: Code(s): E11.42 - Type 2 diabetes mellitus with diabetic polyneuropathy Qualifiers: Diabetes mellitus intermediate project manager insulin use: with detention use Qualified Code(s): E11.42 - Type 2 diabetes mellitus with diabetic polyneuropathy; Z79.4 - director long term care (current) use of insulin Plan: This 66-year-old female with history of type 2 diabetes being managed metformin, Victoza and basal insulin with good but not optimal glycemic control and known microvascular complications namely neuropathy. Plan is to increase the Trulicity to 3 mg q.week. Will also start Lantus 20 units. Had nurse review insulin administration with patient. Will have patient follow-up with front end application developer Orders: Orders AMB Hemoglobin A1c Today E11.40 - Type 2 diabetes mellitus with diabetic neuropathy, unspecified Medications: New dulaglutide (Trulicity) 3 mg (0.5 mL) subcut QWEEK 2 mL 5RF pen needle, diabetic (Comfort EZ Pen [place]) As directed injects once a day 50 ea 5RF insulin glargine (Lantus Solostar U-100 Insulin) 20 units (0.2 mL) subcut QAM 15 mL 5RF Discontinued dulaglutide (Trulicity) Discontinued Reason: Doctor's Order 1.5 mg (0.5 mL) subcut QWEEK 2 mL 5RF Coding Level of Care Code Est Pt Level 4 (66489) Diagnoses Type 2 diabetes mellitus with diabetic polyneuropathy, with long-term current use of insulin E11.42; Z79.4 Diabetes mellitus intermediate project manager insulin use: with intermediate project manager use
[2022-12-01 14:23] LABS: Glucose, Whole Blood 234 mg/dL (60-115)
--- NOTE | 2022-12-01 14:48 | AM.OFFVISNUR ---
Intake Vital Signs 12/01/22 14:06 Height 5 ft 3 in Weight 239 lb 3.225 oz BMI 42.4 BP 128/60 Blood Pressure Location Rt brachial Position Sitting Pulse 65 Pulse Source Pulse Oximeter Intake Visit Reasons: T2DM/lvm Allergies nitrofurantoin Allergy (Intermediate, Verified 12/01/22 14:12) itching and redness (in the legs) Nursing Note I met with the patient and provided education on the use of a Lantus pen. I explained with the use of a medical staff director how to cleanse the skin prior to injection, how to attach the pen needle to the Lantus pen, how to dial the dose recommended by Dr. Lim, and how to dispose of the pen needle in the sharps container. Patient verbalizes understanding and will call with any further questions. Results AMB Hemoglobin A1c AMB Hemoglobin A1c 8.5 % Last Edit by Maryanne Koehler on 12/01/22 14:29 Coding Diagnoses Type 2 diabetes mellitus with diabetic polyneuropathy, with long-term current use of insulin E11.42; Z79.4 Diabetes mellitus long term acute care registered nurse insulin use: with [facility] use Assessment & Plan Assessment & Plan (1) Type 2 diabetes mellitus with diabetic polyneuropathy: Code(s): E11.42 - Type 2 diabetes mellitus with diabetic polyneuropathy Qualifiers: Diabetes mellitus [facility] insulin use: with long term acute care registered nurse use Qualified Code(s): E11.42 - Type 2 diabetes mellitus with diabetic polyneuropathy; Z79.4 - jail (current) use of insulin Orders: Orders AMB Hemoglobin A1c Today E11.40 - Type 2 diabetes mellitus with diabetic neuropathy, unspecified Medications: New dulaglutide (Trulicity) 3 mg (0.5 mL) subcut QWEEK 2 mL 5RF pen needle, diabetic (Comfort EZ Pen [place]) As directed injects once a day 50 ea 5RF insulin glargine (Lantus Solostar U-100 Insulin) 20 units (0.2 mL) subcut QAM 15 mL 5RF Discontinued dulaglutide (Trulicity) Discontinued Reason: Doctor's Order 1.5 mg (0.5 mL) subcut QWEEK 2 mL 5RF
== END 2022-12-01 14:50 | disposition home or self-care (01) ==
PROVIDERS: PCP Internal Medicine; Visit Provider Internal Medicine Endocrinology, Diabetes & Metabolism
DX: E11.42 Type 2 diabetes mellitus with diabetic polyneuropathy (principal); Z79.4 Long term (current) use of insulin; E11.40 Type 2 diabetes mellitus with diabetic neuropathy, unspecified
CPT/HCPCS: 99214

== ENCOUNTER → 2022-12-01 14:04 | Outpatient (BNVA) | payer MEDICARE, MEDICAID, SELFPAY | PROVIDERS: Visit Provider Internal Medicine Endocrinology, Diabetes & Metabolism | DX: E11.42 Type 2 diabetes mellitus with diabetic polyneuropathy (principal); Z79.4 Long term (current) use of insulin | CPT/HCPCS: 82947; 83036; 99212 ==

== ENCOUNTER 2022-12-04 12:44 | Outpatient (REF) | payer MEDICARE, MEDICAID, SELFPAY ==
--- NOTE | ~2022-12-04 | XR_ITS ---
EXAMINATION: XR FOOT, RIGHT CLINICAL INFORMATION: Pain in right foot. COMPARISON: None available. TECHNIQUE: AP, lateral, and oblique views of the right foot. FINDINGS: There is mild osteoarthritis in the midfoot with marginal osteophytes along the dorsal aspect of the naviculocuneiform joints and the tarsometatarsal joints. There is a moderate-sized plantar calcaneal spur and a small posterior calcaneal spur. There is some ossification or calcification region of the distal Achilles perhaps reflecting old partial tearing with degenerative change. The forefoot is unremarkable. Surrounding soft tissues are unremarkable. XR/XR foot RT min 3V IMPRESSION: 1. Mild osteoarthritis in the midfoot. 2. Calcaneal spurs. 3. Possible old partial tearing of the Achilles.
== END 2022-12-04 12:45 | disposition home or self-care (01) ==
LOC: HO.XRAY 12:44
PROVIDERS: PCP Internal Medicine; Visit Provider Internal Medicine
DX: M79.671 Pain in right foot (principal)
CPT/HCPCS: 73630

== ENCOUNTER 2022-12-22 13:13 | Outpatient (AMB) | payer MEDICARE, MEDICAID, SELFPAY ==
--- NOTE | 2022-12-22 14:33 | MHC.OFFWIV ---
Intake Vital Signs 12/22/22 14:35 Height 5 ft 3 in Weight 234 lb BMI 41.4 BP 104/60 Blood Pressure Location Lt brachial Position Sitting Pulse 78 Pulse Source Pulse Oximeter Pulse Oximetry (%) 96 Oxygen Delivery Method Room Air Intake Visit Reasons: EST/bump on left shoulder Intake Note: Patient here for bumps on left side of upper back, she would also like to talk about body pain. she has a hx of fibromyalgia and has been taking all meds for this but she is not getting any relief. Patient Tobacco Use Status: Former Tobacco user Allergies nitrofurantoin Allergy (Intermediate, Verified 12/22/22 15:31) itching and redness (in the legs) Medication List - Last Reconciled 12/22/22 by Vernon Castle MD [ADULT BRIEFS (size XL) As directed] [ADULT PULL-UPS (size XL) As directed] albuterol sulfate 90 mcg/actuation 2 puffs inhalation QID PRN albuterol sulfate 2.5 mg (3 mL) inhalation Q4-6H PRN alcohol swabs 1 pad topical TID amitriptyline 25 mg PO BEDTIME aspirin 81 mg PO DAILY 90 days atorvastatin 40 mg PO DAILY benzonatate 200 mg PO BID PRN 30 days blood pressure monitor As directed blood sugar diagnostic (OneTouch Verio test strips) Three times a day blood sugar diagnostic (OneTouch Verio test strips) As directed tests 4X/day blood-glucose meter Three times a day blood-glucose meter (OneTouch Verio Flex Meter) As directed trsts 4 X/day cholecalciferol (vitamin D3) 50 mcg PO DAILY 90 days dexlansoprazole 60 mg PO DAILY [DISPOSABLE WIPES As directed] doxycycline hyclate 100 mg PO BID 10 days dulaglutide (Trulicity) 3 mg (0.5 mL) subcut QWEEK duloxetine 60 mg PO DAILY escitalopram oxalate 5 mg PO DAILY flash glucose scanning reader (FreeStyle [place] 14 Day [place]) As directed flash glucose sensor (FreeStyle [place] 14 Day Sensor kit) 1 ea topical Q2W fluticasone propionate 220 mcg/actuation (Flovent HFA) 1 puff PO BID fluticasone propionate 50 mcg/actuation 2 sprays intranasal DAILY 30 days [FOUR-PRONGED CANE As directed] glucose 12 grams (3 x 4 gram) PO Q15M hydrochlorothiazide 25 mg PO DAILY 90 days ibuprofen 800 mg PO TID PRN insulin glargine (Lantus Solostar U-100 Insulin) 20 units (0.2 mL) subcut QAM ipratropium-albuterol 0.5 mg-3 mg(2.5 mg base)/3 mL 3 mL inhalation QID PRN lancets (OneTouch Delica Lancets) Three times a day lancets (FreeStyle Lancets) As directed three time a day lancets (OneTouch Delica Plus Lancet) As directed-tests 4 X/day lancets (FreeStyle Lancets) As directed lidocaine 5% (Lidoderm) 1 patch topical DAILY 30 days [LIGHTWEIGHT WALKER WITH SEAT walker with seat] linaclotide (Linzess) 72 mcg PO QAM loratadine 10 mg PO DAILY 90 days lorazepam mg PO memantine 10 mg PO BID metformin 1 tablet in the morning and 2 tablets in evening PO; 30 days metoprolol succinate ER 50 mg PO DAILY 30 days montelukast 10 mg PO BEDTIME nystatin 1 appl topical TID peg 3350-electrolytes 236-22.74-6.74 -5.86 gram (Golytely) 240 mL PO Q10M 1 day pen needle, diabetic (BD Ultra-Fine Cindy Pen Needle) twice daily pen needle, diabetic (Comfort EZ Pen [place]) As directed injects once a day prednisone PO daily; Take 2 tabs daily x 5 days, then 1 tab x 5 days 10 days pregabalin 150 mg PO Q8H 30 days [ROLLATOR with SEAT As directed] Shower Chair As directed sod phos mono-sod phos dibasic 1.5 gram (OsmoPrep) 4 tabs PO Q15M tiotropium-olodaterol 2.5-2.5 mcg/actuation (Stiolto Respimat) 2 puffs inhalation DAILY tizanidine 4 mg PO TID PRN tramadol 50 mg PO TID PRN 30 days valsartan 320 mg PO DAILY Do you need a note to return to daycare/school/sports/work: No HPI EST/bump on left shoulder HPI Details 67-year-old female presents to the office for a sick visit. assistant family teacher is used for translation. Patient has a rash on her left shoulder. In addition she has history of fibro myalgia an arthritis. She would like some pain medication for the arthritis symptoms. [facility] Medical History Fibromyalgia Chronic bronchitis Vitamin D deficiency Post-thoracotomy pain syndrome Sinusitis Chest pain Gastroparesis Arthritis COPD (chronic obstructive pulmonary disease) Dyspnea Stool incontinence Depression Anxiety Type 2 diabetes mellitus with diabetic polyneuropathy Hyperlipidemia LDL goal <70 Pulmonary nodules Allergic rhinitis Primary osteoarthritis of both knees GERD (gastroesophageal reflux disease) Morbid obesity with BMI of 40.0-44.9, adult Asthma Obstructive sleep apnea Lumbar degenerative disc disease Carcinoid tumor Coronary artery disease Pure hypercholesterolemia Benign essential hypertension Type 2 diabetes mellitus with hyperglycemia, with long-term current use of insulin Surgical History History of colonoscopy (~12/2013) History of tubal ligation History of lung biopsy (~07/2016) History of esophagogastroduodenoscopy (EGD) (~10/2011) History of lobectomy of lung (~08/2016) History of rectal sphincterotomy (~11/2013) History of cardiac cath (~07/2018) Family History Father Stroke Hypertension Diabetes Mother Diabetes Hypertension Social History Household Members: Spouse Housing: Apartment Alcohol intake: never Patient Tobacco Use Status: Former Tobacco user Tobacco use type: Cigarette e-Cigarette/Vaping Use: Never Used Second Hand Smoke Exposure: Yes service: No Current occupational status: disabled Cognitive needs: No Hearing needs: No Vision needs: Yes Physical Exam Vital Signs: Last Vital Signs Pulse 78 12/22/22 14:35 BP 104/60 12/22/22 14:35 Pulse Ox 96 12/22/22 14:35 Oxygen Delivery Method Room Air 12/22/22 14:35 BMI result Body Mass Index 41.4 Const General: cooperative and healthy appearing Nutritional Appearance: well nourished Orientation/consciousness: patient oriented x3 Limitations: no limitations HEENT Head: Yes normal to inspection Eyes General: appearance normal, both eyes and all related structures Neck Neck: Yes normal visual inspection Chest Chest palpation & inspection: normal palpation of entire chest wall Resp Effort & Inspection: normal respiratory effort Skin Other: Three erythematous lesions on the left upper back. It is following dermatome pattern. Not vesicular. Neuro General: patient oriented x3 Assessment & Plan Assessment & Plan (1) Rash: Code(s): R21 - Rash and other nonspecific skin eruption Plan: Rash could signify early herpes. Valacyclovir has been started empirically. (2) Fibromyalgia: Code(s): M79.7 - Fibromyalgia Plan: Nonsteroidals have been started. Coding Level of Care Code Est Pt Level 3 (48188) Diagnoses Rash R21 Fibromyalgia M79.7
[2022-12-22 14:35] VITALS: BP 104/60; PULSE 78; O2SAT 96; BMI 41.4
== END 2022-12-22 15:37 | disposition home or self-care (01) ==
PROVIDERS: PCP Internal Medicine; Visit Provider Internal Medicine
DX: R21 Rash and other nonspecific skin eruption (principal); M79.7 Fibromyalgia
CPT/HCPCS: 99213

== ENCOUNTER 2022-12-28 10:59 | Outpatient (REF) | payer MEDICARE, MEDICAID, SELFPAY ==
--- NOTE | ~2022-12-28 | XR_ITS ---
EXAMINATION: XR KNEE, RIGHT XR KNEE, LEFT XR ANKLE, RIGHT XR ANKLE, LEFT CLINICAL INFORMATION: Pain in right ankle and joints of right foot. Knee pain right. COMPARISON: None available. TECHNIQUE: AP, lateral, and oblique views of the bilateral ankles. 4 views of the left knee. 3 views of the right knee. FINDINGS: RIGHT ANKLE: Moderate plantar and small dorsal calcaneal spurs. Redemonstration of ossification or calcification in the region of the distal Achilles tendon. Mild degenerative changes in the midfoot with hypertrophic change along the dorsal aspect of the naviculocuneiform joints and the tarsometatarsal joints. LEFT ANKLE: Moderate plantar and small dorsal calcaneal spurs. Mild degenerative changes in the midfoot with hypertrophic change along the dorsal aspect of the naviculocuneiform joints and the tarsometatarsal joints. RIGHT KNEE: Small quadriceps enthesophyte. Vascular calcifications. Degenerative changes with narrowing in the patellofemoral and medial joint spaces. Small medial marginal and posterior patellar osteophytes. Faint curvilinear calcification along the medial aspect of the medial femoral condyle. LEFT KNEE: Small quadriceps enthesophyte. Vascular calcifications. Degenerative changes with narrowing in the patellofemoral and medial joint spaces. Small medial marginal and posterior patellar osteophytes. Suprapatellar effusion present XR/XR knee RT 3V IMPRESSION: 1. Mild degenerative changes in the right and left midfoot. 2. Bilateral calcaneal spurring. 3. Redemonstration of ossification or calcification in the region of the distal Achilles tendon, possibly related to prior injury of the Achilles. 4. Moderate degenerative changes in the bilateral knees. Additional imaging with CT scan or MRI should be considered for better visualization as these modalities are much more sensitive for detection of fracture or other underlying pathology.
--- NOTE | ~2022-12-28 | XR_ITS ---
EXAMINATION: XR KNEE, RIGHT XR KNEE, LEFT XR ANKLE, RIGHT XR ANKLE, LEFT CLINICAL INFORMATION: Pain in right ankle and joints of right foot. Knee pain right. COMPARISON: None available. TECHNIQUE: AP, lateral, and oblique views of the bilateral ankles. 4 views of the left knee. 3 views of the right knee. FINDINGS: RIGHT ANKLE: Moderate plantar and small dorsal calcaneal spurs. Redemonstration of ossification or calcification in the region of the distal Achilles tendon. Mild degenerative changes in the midfoot with hypertrophic change along the dorsal aspect of the naviculocuneiform joints and the tarsometatarsal joints. LEFT ANKLE: Moderate plantar and small dorsal calcaneal spurs. Mild degenerative changes in the midfoot with hypertrophic change along the dorsal aspect of the naviculocuneiform joints and the tarsometatarsal joints. RIGHT KNEE: Small quadriceps enthesophyte. Vascular calcifications. Degenerative changes with narrowing in the patellofemoral and medial joint spaces. Small medial marginal and posterior patellar osteophytes. Faint curvilinear calcification along the medial aspect of the medial femoral condyle. LEFT KNEE: Small quadriceps enthesophyte. Vascular calcifications. Degenerative changes with narrowing in the patellofemoral and medial joint spaces. Small medial marginal and posterior patellar osteophytes. Suprapatellar effusion present XR/XR ankle RT min 3V IMPRESSION: 1. Mild degenerative changes in the right and left midfoot. 2. Bilateral calcaneal spurring. 3. Redemonstration of ossification or calcification in the region of the distal Achilles tendon, possibly related to prior injury of the Achilles. 4. Moderate degenerative changes in the bilateral knees. Additional imaging with CT scan or MRI should be considered for better visualization as these modalities are much more sensitive for detection of fracture or other underlying pathology.
--- NOTE | ~2022-12-28 | XR_ITS ---
EXAMINATION: XR KNEE, RIGHT XR KNEE, LEFT XR ANKLE, RIGHT XR ANKLE, LEFT CLINICAL INFORMATION: Pain in right ankle and joints of right foot. Knee pain right. COMPARISON: None available. TECHNIQUE: AP, lateral, and oblique views of the bilateral ankles. 4 views of the left knee. 3 views of the right knee. FINDINGS: RIGHT ANKLE: Moderate plantar and small dorsal calcaneal spurs. Redemonstration of ossification or calcification in the region of the distal Achilles tendon. Mild degenerative changes in the midfoot with hypertrophic change along the dorsal aspect of the naviculocuneiform joints and the tarsometatarsal joints. LEFT ANKLE: Moderate plantar and small dorsal calcaneal spurs. Mild degenerative changes in the midfoot with hypertrophic change along the dorsal aspect of the naviculocuneiform joints and the tarsometatarsal joints. RIGHT KNEE: Small quadriceps enthesophyte. Vascular calcifications. Degenerative changes with narrowing in the patellofemoral and medial joint spaces. Small medial marginal and posterior patellar osteophytes. Faint curvilinear calcification along the medial aspect of the medial femoral condyle. LEFT KNEE: Small quadriceps enthesophyte. Vascular calcifications. Degenerative changes with narrowing in the patellofemoral and medial joint spaces. Small medial marginal and posterior patellar osteophytes. Suprapatellar effusion present XR/XR knee LT 3V IMPRESSION: 1. Mild degenerative changes in the right and left midfoot. 2. Bilateral calcaneal spurring. 3. Redemonstration of ossification or calcification in the region of the distal Achilles tendon, possibly related to prior injury of the Achilles. 4. Moderate degenerative changes in the bilateral knees. Additional imaging with CT scan or MRI should be considered for better visualization as these modalities are much more sensitive for detection of fracture or other underlying pathology.
--- NOTE | ~2022-12-28 | XR_ITS ---
EXAMINATION: XR KNEE, RIGHT XR KNEE, LEFT XR ANKLE, RIGHT XR ANKLE, LEFT CLINICAL INFORMATION: Pain in right ankle and joints of right foot. Knee pain right. COMPARISON: None available. TECHNIQUE: AP, lateral, and oblique views of the bilateral ankles. 4 views of the left knee. 3 views of the right knee. FINDINGS: RIGHT ANKLE: Moderate plantar and small dorsal calcaneal spurs. Redemonstration of ossification or calcification in the region of the distal Achilles tendon. Mild degenerative changes in the midfoot with hypertrophic change along the dorsal aspect of the naviculocuneiform joints and the tarsometatarsal joints. LEFT ANKLE: Moderate plantar and small dorsal calcaneal spurs. Mild degenerative changes in the midfoot with hypertrophic change along the dorsal aspect of the naviculocuneiform joints and the tarsometatarsal joints. RIGHT KNEE: Small quadriceps enthesophyte. Vascular calcifications. Degenerative changes with narrowing in the patellofemoral and medial joint spaces. Small medial marginal and posterior patellar osteophytes. Faint curvilinear calcification along the medial aspect of the medial femoral condyle. LEFT KNEE: Small quadriceps enthesophyte. Vascular calcifications. Degenerative changes with narrowing in the patellofemoral and medial joint spaces. Small medial marginal and posterior patellar osteophytes. Suprapatellar effusion present XR/XR ankle LT min 3V IMPRESSION: 1. Mild degenerative changes in the right and left midfoot. 2. Bilateral calcaneal spurring. 3. Redemonstration of ossification or calcification in the region of the distal Achilles tendon, possibly related to prior injury of the Achilles. 4. Moderate degenerative changes in the bilateral knees. Additional imaging with CT scan or MRI should be considered for better visualization as these modalities are much more sensitive for detection of fracture or other underlying pathology.
== END 2022-12-28 11:00 | disposition home or self-care (01) ==
LOC: HO.XRAY 10:59
PROVIDERS: PCP Internal Medicine; Visit Provider Internal Medicine
DX: M25.561 Pain in right knee (principal); M25.562 Pain in left knee; M25.571 Pain in right ankle and joints of right foot; M25.572 Pain in left ankle and joints of left foot
CPT/HCPCS: 73562; 73610

== ENCOUNTER 2022-12-30 14:00 | Emergency (ER) | payer MEDICARE, MEDICAID, SELFPAY ==
[2022-12-30 14:42] VITALS: BP 137/62; PULSE 83; RESP 18; TEMP 36; O2SAT 100; BMI 41.2
--- NOTE | 2022-12-30 14:44 | ED_ITS ---
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 intake x5 days. Additionally endorses a burning sensation in her epigastric region. No radiation of pain. Pain comes and goes, unchanged with eating. She is currently being treated with a PPI for GERD. She spoke to her GI doctor who advised her to come to the ED. Last BM this morning- normal. Denies fever, dizziness, chills, palpitations, chest pain, shortness of breath, vomiting, flank pain, diarrhea, constipation, dysuria, or hematuria. Denies sick contacts. Related Data Home Medications Medication Instructions Recorded Confirmed escitalopram oxalate 5 mg tablet 5 mg PO DAILY 01/22/22 11/27/22 memantine 10 mg tablet 10 mg PO BID 01/22/22 11/27/22 lorazepam 1 mg tablet mg PO 09/21/22 11/27/22 Previous Rx's Medication Instructions Recorded LIGHTWEIGHT WALKER WITH SEAT #1 ea 09/05/20 nystatin 100,000 unit/gram topical 1 appl topical TID #30 grams 10/04/20 powder ROLLATOR with SEAT #1 ea 03/03/21 alcohol swabs 1 pad topical TID #100 pad 03/04/21 amitriptyline 25 mg tablet 25 mg PO BEDTIME #90 tabs 03/09/21 ipratropium 0.5 mg-albuterol 3 mg 3 ml inhalation QID PRN shortness 04/21/21 (2.5 mg base)/3 mL nebulization of breath #180 mL soln blood pressure monitor #1 ea 09/12/21 flash glucose scanning reader #1 ea 12/01/21 (FreeStyle Mary Ann 14 Day Bohemia) pen needle, diabetic 32 gauge x #100 ea 01/09/22/32 (BD Ultra-Fine Cindy Pen Needle) aspirin 81 mg tablet,delayed 81 mg PO DAILY 90 days #90 tabs 03/09/22 release peg 3350-electrolytes 236 240 ml PO Q10M 1 day #4,000 mL 04/15/22 gram-22.74 gram-6.74 gram-5.86 gram solution (Golytely) atorvastatin 40 mg tablet 40 mg PO DAILY #90 tabs 05/15/22 linaclotide 72 mcg capsule 72 mcg PO QAM #30 caps 05/29/22 (Linzess) sod phos mono-sod phos dibasic 1.5 4 tab PO Q15M colonoscopyprep #32 05/29/22 gram (1.102-0.398) tablet tabs (OsmoPrep) ADULT BRIEFS (size XL) #100 ea 06/03/22 ADULT PULL-UPS (size XL) #100 ea 06/03/22 lancets 28 gauge (FreeStyle #100 ea 06/08/22 Lancets) lancets 28 gauge (FreeStyle #300 ea 06/09/22 Lancets) loratadine 10 mg tablet 10 mg PO DAILY 90 days #90 tabs 06/26/22 flash glucose sensor (FreeStyle 1 ea topical Q2W #2 ea 07/06/22 Mary Ann 14 Day Sensor kit) valsartan 320 mg tablet 320 mg PO DAILY #90 tabs 07/16/22 albuterol sulfate 2.5 mg/3 mL 2.5 mg (3 mL) inhalation Q4-6H PRN 07/29/22 (0.083 %) solution for nebulization shortness of breath or wheezing #75 mL tiotropium 2.5 mcg-olodaterol 2.5 2 puff inhalation DAILY #4 grams 07/29/22 mcg/actuation mist for inhalation (Stiolto Respimat) lidocaine 5 % topical patch 1 patch topical DAILY 30 days #30 08/03/22 (Lidoderm) ea montelukast 10 mg tablet 10 mg PO BEDTIME #90 tabs 08/03/22 FOUR-PRONGED CANE #1 ea 08/06/22 blood sugar diagnostic (aiHitTouch #100 ea 08/07/22 Verio test strips) blood-glucose meter #1 ea 08/07/22 blood-glucose meter (OneTouch #1 ea 08/07/22 Verio Flex Meter) lancets 30 gauge (OneTouch Delica #100 ea 08/07/22 Plus Lancet) lancets 33 gauge (OneTouch Delica #100 ea 08/07/22 Lancets) blood sugar diagnostic (OneTouch #100 ea 08/12/22 Verio test strips) ibuprofen 800 mg tablet 800 mg PO TID PRN for pain #90 tabs 09/01/22 metformin 500 mg tablet See Rx Instructions PO .COMPLEX 30 09/05/22 days #90 tabs glucose 4 gram chewable tablet 12 g (3 x 4 gram) PO Q15M for 10/05/22 hypoglycemia #60 tabs doxycycline hyclate 100 mg capsule 100 mg PO BID 10 days #20 caps 10/30/22 benzonatate 200 mg capsule 200 mg PO BID PRN cough 30 days 11/05/22 #30 caps prednisone 10 mg tablet See Rx Instructions PO DAILY 10 11/05/22 days #15 tabs metoprolol succinate 50 mg 50 mg PO DAILY 30 days #30 tabs 11/07/22 tablet,extended release 24 hr DISPOSABLE WIPES #100 ea 11/13/22 duloxetine 60 mg capsule,delayed 60 mg PO DAILY #90 caps 11/13/22 release hydrochlorothiazide 25 mg tablet 25 mg PO DAILY 90 days #90 tabs 11/13/22 pregabalin 150 mg capsule 150 mg PO Q8H 30 days #90 caps 11/13/22 tramadol 50 mg tablet 50 mg PO TID PRN pain 30 days #90 11/13/22 tabs Shower Chair #1 ea 11/24/22 dulaglutide 3 mg/0.5 mL 3 mg (0.5 mL) subcut QWEEK #2 mL 12/01/22 subcutaneous pen injector (Trulicity) insulin glargine 100 unit/mL (3 20 unit (0.2 mL) subcut QAM #15 mL 12/01/22 mL) subcutaneous pen (Lantus Solostar U-100 Insulin) pen needle, diabetic 32 gauge x #50 ea 12/01/22 (Comfort EZ Pen Munith) fluticasone propionate 220 1 puff PO BID #12 ea 12/07/22 mcg/actuation HFA aerosol inhaler (Flovent HFA) fluticasone propionate 50 2 spray intranasal DAILY 30 days 12/07/22 mcg/actuation nasal #48 mL spray,suspension dexlansoprazole 60 mg 60 mg PO DAILY #90 caps 12/09/22 capsule,biphase delayed release albuterol sulfate 90 mcg/actuation 2 puff inhalation QID PRN 12/11/22 aerosol inhaler bronchospasm #8.5 grams cholecalciferol (vitamin D3) 50 50 mcg PO DAILY 90 days #90 caps 12/14/22 mcg (2,000 unit) capsule tizanidine 4 mg tablet 4 mg PO TID PRN muscle spasticity 12/14/22 #90 tabs valacyclovir 500 mg tablet 500 mg PO BID #14 tabs 12/22/22 pantoprazole 40 mg tablet,delayed 40 mg PO DAILY #20 tabs 12/30/22 release (Protonix) Allergies Allergy/AdvReac Type Severity Reaction Status Date / Time nitrofurantoin Allergy Intermediate itching Verified 12/22/22 15:31 and redness (in the legs) Review of Systems 2 Review of Systems: Constitutional: No fever, chills, fatigue, night sweats, weight changes ENT/Mouth: No ear pain, hearing loss, nasal congestion, sinus pain Eyes: No eye pain, swelling, redness, vision changes, discharge Cardio: No chest pain, palpitations, ALVAREZ, orthopnea, peripheral edema Pulm: No SOB, cough, sputum, wheezing, dyspnea, hemoptysis GI: + nausea, No vomiting, hematemesis, +abdominal pain, No diarrhea, constipation, hematochezia, melena : No irregular bleeding, dysuria, frequency, urgency, hesitancy, hematuria, flank pain, urinary flow changes MSK: No back pain, neck pain, joint pain, myalgias Skin: No lesions, rashes Neuro: No weakness, numbness, paresthesias, LOC, dizziness, headache All other systems reviewed and are negative. [facility] Past Medical History Attestation statement: The following information was validated with the patient. Source: old records reviewed and nursing notes reviewed Medical History Fibromyalgia Chronic bronchitis Vitamin D deficiency Post-thoracotomy pain syndrome Sinusitis Chest pain Gastroparesis Arthritis COPD (chronic obstructive pulmonary disease) Dyspnea Stool incontinence Depression Anxiety Type 2 diabetes mellitus with diabetic polyneuropathy Hyperlipidemia LDL goal <70 Pulmonary nodules Allergic rhinitis Primary osteoarthritis of both knees GERD (gastroesophageal reflux disease) Morbid obesity with BMI of 40.0-44.9, adult Asthma Obstructive sleep apnea Lumbar degenerative disc disease Carcinoid tumor Coronary artery disease Pure hypercholesterolemia Benign essential hypertension Type 2 diabetes mellitus with hyperglycemia, with long-term current use of insulin Surgical History History of colonoscopy (~12/2013) History of tubal ligation History of lung biopsy (~07/2016) History of esophagogastroduodenoscopy (EGD) (~10/2011) History of lobectomy of lung (~08/2016) History of rectal sphincterotomy (~11/2013) History of cardiac cath (~07/2018) Family History Family History Father Stroke Hypertension Diabetes Mother Diabetes Hypertension Social History Social History Household Members: Spouse Housing: Apartment Alcohol intake: never Patient Tobacco Use Status: Former Tobacco user Tobacco use type: Cigarette e-Cigarette/Vaping Use: Never Used Second Hand Smoke Exposure: Yes Advance Directives: No Advance Directives Information Provided: No service: No Current occupational status: disabled Cognitive needs: No Hearing needs: No Vision needs: Yes Physical Exam 2 Vital Signs: Vital Signs: Last Vital Signs Temp 97.3 F 12/30/22 21:16 Pulse 78 12/30/22 21:16 Resp 13 12/30/22 21:16 BP 126/66 12/30/22 21:16 Pulse Ox 100 12/30/22 21:16 O2 Del Method Room Air 12/30/22 21:16 BMI result Body Mass Index 41.2 Vital signs are stable. Const: General: cooperative, comfortable, no acute distress, alert and awake; No diaphoretic Nutritional Appearance: obese Orientation/consciousness: p atient oriented x3 Limitations: no limitations HEENT: Head: Yes normal to inspection Ears: hearing grossly normal bilaterally General nose exam: Normal external nose present Throat: Yes posterior oropharynx normal, Yes tonsils normal, Yes uvula midline and Yes abnormal tonsil Eyes: General: appearance normal, both eyes and all related structures C onjunctivae: conjunctivae normal Sclerae: sclerae normal Pupils: Equal, round and reactive pupils present EOM: EOMs intact bilaterally Neck: Neck: Yes normal visual inspection, Yes no lymphadenopathy and Yes no meningeal signs Chest: Chest palpation & inspection: normal inspection of the chest, normal palpation of entire chest wall, no crepitus and no tenderness Resp: Effort & Inspection: normal respiratory effort and able to speak in complete sentences Auscultation: clear to auscultation bilaterally, no crackles, no rales, no rhonchi and no wheezes Cardio: Rate: regular rate Rhythm: regular rhythm Peripheral pulses: r adial pulses present, posterior tibial pulses present and dorsalis pedis present GI: Other: Abdomen is soft, non distended, mildly tender to palpation of the epigastric region without rebound tenderness or guarding. Normoactive BS x4. Inspection: Yes normal to inspection and No abdominal wall ecchymosis Skin: General skin exam: no rashes or lesions noted Neuro: General: patient oriented x3, gait normal, moves all extremities and no meningeal signs Cranial nerves: Yes CN's II-XII intact bilaterally and Yes Equal, round and reactive pupils present Extrem: General: Yes normal to inspection and Yes no clubbing, cyanosis or edema Course Course Course Narrative: RME - 67 yo Malaysian speaking female with history of gastritis, DM, fibromyalgia, PNA, HTN, asthma, ILDEFONSO, GERD, constipation who presents to the ER for evaluation of 5 days of nausea and decreased PO intake. She reports a burning epigastic pain. GI doctor told her to come to the ER. She is on a PPI. No vomiting or diarrhea, having normal BMs. She reports episodes of sweating and weakness. Plan: basic labs, medicate, PO trial Reevaluation(s) Reevaluation #1: 1608-- CBC with mild leukocytosis to 11 without left shift. No anemia. Chemistry showing elevated liver enzymes appearing to be patient's baseline when compared to priors. Bilirubin is WNL > less concerning for acute andrae. Urine negative for infection. Lipase WNL > no pancreatitis. At this time I do not feel as though abdominal imaging is warranted. Will give patient GI cocktail and re- evaluate. 1800-- COVID negative. On re-evaluation, patient reports symptom improvement with GI cocktail. Her symptoms are consistent with worsening gastritis. She has an appointment with her GI doctor on Wednesday (2 days). She currently takes Dexilant 60mg PO. Plan to add famotidine to this regimen. Will plan for PO trial and discharge. Patient and grand daughter at bedside are agreeable with this anderson. 1824-- Patient now informs me that she has been having episodes of nausea, diaphoresis, and generalized weakness x5 days. 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 She informed him of these episodes and reports having a stress test and echo performed yesterday and has not received the results . I will order EKG and troponin to rule out ACS. TSH and POC ordered. > Patient and grand-daughter are agreeable with plan. Will re-evaluate. > I discussed this case and plan with my supervising PA, Patricia who agrees with workup. 1943-- TSH wnl. EKG showing left bundle-branch block. Normal sinus rhythm. No priors to compare to. Troponin elevated to 18. Will repeat. > Discussed case with my attending physician, Dr. Gonzalez who I will be signing the patient out to pending repeat trop and IVF. Reevaluation #2: second troponin flat will treat patient with protonix and dc home Time: 22:00 Medications Administered Discontinued Medications Generic Name Dose Route Start Last Admin Trade Name Freq PRN Reason Stop Dose Admin Al Hydroxide/Mg Hydroxide 30 ml 12/30/22 16:37 12/30/22 17:11 Magnesium Hydrox/Alum Hydrox 30 Ml Oral.Susp PO 12/30/22 16:38 30 ml ONCE ONE Administration Famotidine 20 mg 12/30/22 16:37 12/30/22 17:10 Famotidine 20 Mg Tablet PO 12/30/22 16:38 20 mg ONCE ONE Administration Sodium Chloride 1,000 mls @ 999 mls/hr 12/30/22 18:45 12/30/22 22:26 Ns IV 12/30/22 19:45 Infused .Q1H1M JERRI Infusion Lidocaine HCl 15 ml 12/30/22 16:37 12/30/22 17:11 Lidocaine Hcl Viscous 2 % 15 Ml Solution MUCOUS MEM 12/30/22 16:38 15 ml ONCE ONE Administration Medical Decision Making Medical Decision Making MDM Narrative: 67 year old female with a pmhx of gastritis, diabetes, fibromyalgia, pneumonia, hypertension, asthma, ILDEFONSO, GERD, and constipation presents to the ED today for evaluation of nausea and decreased p.o. intake x5 days. Vital signs are stable. Patient is nontoxic appearing, in NAD. No diaphoresis. No tremors. Oral mucous membranes are pink and moist. RRR. Lungs are CTA bilaterally. Abdomen is soft, non distended, mildly tender to palpation of the epigastric region without rebound tenderness or guarding. There are normoactive BS throughout. No peripheral edema. Exam is nonfocal. Clinical concern for GERD, gastritis, gastroenteritis, viral syndrome, COVID, pancreatitis, cholecystitis, PUD. Unlikely gastroparesis, DKA, SBO, ischemic bowel, appendicitis, or acute abdomen. Basic labs ordered in triage. Will review results and plan for GI cocktail and re-evaluation. Differential Diagnosis Differential Diagnoses: The differential diagnosis associated with the presentation includes As above. Admission/Observation Not indicated. Lab Data MDM Lab Attestation statement: I reviewed the patient's lab results. As above. 12/30/22 15:08 12/30/22 15:08 Labs: Lab Results 12/30/22 12/30/22 12/30/22 Range/Units 15:08 17:30 18:44 WBC 11.0 H (4.8-10.8) X10*3/uL RBC 5.01 (4.20-5.50) X10*6/uL Hgb 13.7 (12.0-16.0) g/dl Hct 42.0 (37.0-47.0) % MCV 83.8 (80.0-98.0) fL MCH 27.3 (27.0-33.0) pg MCHC 32.6 (31.0-35.0) g/dl RDW 13.5 (11.0-16.0) % Plt Count 371 (160-400) X10*3/uL MPV 10.6 (9.4-12.3) fL Immature Gran % (Auto) 0.5 H (0.0-0.4) % Neut % (Auto) 46.9 (45-73) % Lymph % (Auto) 42.1 H (20-40) % [place] % (Auto) 6.2 (2-11) % Eos % (Auto) 3.7 (0-4) % Baso % (Auto) 0.6 (0-2) % Lymph # (Auto) 4.6 (1.2-4.9) X10*3/uL [place] # (Auto) 0.7 (0.1-1.2) X10*3/uL Eos # (Auto) 0.4 (0.0-0.4) X10*3/uL Baso # (Auto) 0.1 (0.0-0.2) X10*3/uL Abs Immat Gran (auto) 0.06 H (0.00-0.03) X10*3/uL Absolute Neuts (auto) 5.1 (2.0-8.3) x10*3/uL Absolute Nucleated RBC 0.000 (0.0-0.012) X10*3/uL Nucleated RBC % (auto) 0.0 (0.0-0.2) /100WBC Sodium 140 (135-145) mmol/L Potassium 4.0 (3.3-5.1) mmol/L Chloride 100 (96-108) mmol/L Carbon Dioxide 29 (22-29) mmol/L Anion Gap 15 (12-20) BUN 16 (9-16) mg/dL Creatinine 0.79 (0.5-1.4) mg/dL Estim Creat Clear Calc 80.3 Estimated GFR > 60 POC Glucose (60-115) mg/dL Random Glucose 162 H (60-115) mg/dL Calcium 10.6 H D (8.4-10.2) mg/dL Magnesium 1.6 (1.6-2.6) mg/dL Total Bilirubin 0.7 (0.0-1.0) mg/dL Direct Bilirubin 0.3 (0.0-0.5) mg/dL AST 47 H (5-31) U/L ALT 24 (0-31) U/L Alkaline Phosphatase 163 H (39-117) U/L Troponin I High Sens 18.1 H (<3.5-17.0) ng/L Total Protein 8.2 H (6.5-8.0) g/dL Albumin 4.3 (3.5-5.0) g/dL Lipase 37 (8-78) U/L TSH 1.26 (0.32-4.0) uIU/mL Urine Color Yellow Urine Appearance Clear Urine pH 5.5 (5.0-9.0) Ur Specific [place] 1.020 (1.005-1.025) Urine Protein Negative (Neg-Trace) mg/dL Urine Glucose (UA) Negative (Negative) mg/dL Urine Ketones Negative (Negative) mg/dL Urine Blood Negative (Negative) Urine Nitrite Negative (Negative) Ur Leukocyte Esterase Trace H (Negative) Urine RBC 0-2 (0-2) /HPF Urine WBC 0-5 (0-5) /HPF Ur Squamous Epith Cells 6-10 (0-2) /HPF Urine Bacteria None Seen (None Seen) Hyaline Casts 0-2 (0-2) /LPF COVID-19 (ANA) Negative (Negative) COVID-19 Clin Com See Note 12/30/22 12/30/22 12/30/22 Range/Units 19:10 21:06 21:13 WBC (4.8-10.8) X10*3/uL RBC (4.20-5.50) X10*6/uL Hgb (12.0-16.0) g/dl Hct (37.0-47.0) % MCV (80.0-98.0) fL MCH (27.0-33.0) pg MCHC (31.0-35.0) g/dl RDW (11.0-16.0) % Plt Count (160-400) X10*3/uL MPV (9.4-12.3) fL Immature Gran % (Auto) (0.0-0.4) % Neut % (Auto) (45-73) % Lymph % (Auto) (20-40) % [place] % (Auto) (2-11) % Eos % (Auto) (0-4) % Baso % (Auto) (0-2) % Lymph # (Auto) (1.2-4.9) X10*3/uL [place] # (Auto) (0.1-1.2) X10*3/uL Eos # (Auto) (0.0-0.4) X10*3/uL Baso # (Auto) (0.0-0.2) X10*3/uL Abs Immat Gran (auto) (0.00-0.03) X10*3/uL Absolute Neuts (auto) (2.0-8.3) x10*3/uL Absolute Nucleated RBC (0.0-0.012) X10*3/uL Nucleated RBC % (auto) (0.0-0.2) /100WBC Sodium (135-145) mmol/L Potassium (3.3-5.1) mmol/L Chloride (96-108) mmol/L Carbon Dioxide (22-29) mmol/L Anion Gap (12-20) BUN (9-16) mg/dL Creatinine (0.5-1.4) mg/dL Estim Creat Clear Calc Estimated GFR POC Glucose 114 115 (60-115) mg/dL Random Glucose (60-115) mg/dL Calcium (8.4-10.2) mg/dL Magnesium (1.6-2.6) mg/dL Total Bilirubin (0.0-1.0) mg/dL Direct Bilirubin (0.0-0.5) mg/dL AST (5-31) U/L ALT (0-31) U/L Alkaline Phosphatase (39-117) U/L Troponin I High Sens 19.2 H (<3.5-17.0) ng/L Total Protein (6.5-8.0) g/dL Albumin (3.5-5.0) g/dL Lipase (8-78) U/L TSH (0.32-4.0) uIU/mL Urine Color Urine Appearance Urine pH (5.0-9.0) Ur Specific [place] (1.005-1.025) Urine Protein (Neg-Trace) mg/dL Urine Glucose (UA) (Negative) mg/dL Urine Ketones (Negative) mg/dL Urine Blood (Negative) Urine Nitrite (Negative) Ur Leukocyte Esterase (Negative) Urine RBC (0-2) /HPF Urine WBC (0-5) /HPF Ur Squamous Epith Cells (0-2) /HPF Urine Bacteria (None Seen) Hyaline Casts (0-2) /LPF COVID-19 (ANA) (Negative) COVID-19 Clin Com Independent Interpretation I performed an independent interpretation of an: EKG Interpretation: EKG with normal sinus rhythm with a rate of 72 bpm, QT 444, QTC 486, LBBB, no ST elevations, no priors to compare to. Independent Historian Clinical information obtained from an independent historian. History obtained from or confirmed by: Other (Granddaughter, son) External Record Review External record reviewed: Inpatient record Tests considered The following testing was considered but not selected: considered ordering CT abdomen and pelvis however patient is afebrile and labs are without leukocytosis, not warranted at this time. Prescription Management I considered prescription management with: Pain Medication and Other (antiemetic) Chronic Conditions Patient?s care impacted by: Diabetes, Hypertension and Other (GERD, gastritis) Social Determinants Patient?s care significantly limited by Social Determinants of Health including: Other Social Determinant of Health Critical Care Time Critical Care Time Critical Care Time: No Discharge Plan Discharge Clinical Impression: Gastritis Patient Disposition: Home, Self-Care Instructions: Gastritis (ED), Diet for Stomach Ulcers and Gastritis (ED) Additional Instructions: Your labs today are reassuring. Your symptoms resolved with medications today. Your symptoms are consistent with worsening gastritis. Continue taking your dexilant 60mg by mouth daily. In addition, start taking protonix 40mg twice daily. This will be sent to your pharmacy. Make sure to stay upright for atleast 2 hours after eating. Avoid spicy foods and caffeineated beverages. Keep your appointment with your GI doctor this wednesday as planned. Return to the ED if your symptoms persist or worsen. In the case of emergency call 911. Prescriptions: New pantoprazole [Protonix] 40 mg tablet,delayed release (DR/EC) 40 mg PO DAILY Qty: 20 0RF No Action (DME) LIGHTWEIGHT WALKER WITH SEAT See Rx Instructions .Route .MEDSUPPLY Qty: 1 0RF Rx Instructions: walker with seat nystatin 100,000 unit/gram powder 1 appl topical TID Qty: 30 3RF (DME) ROLLATOR with SEAT See Rx Instructions .Route .MEDSUPPLY Qty: 1 0RF Rx Instructions: As directed alcohol swabs Pads, Medicated 1 pad topical TID Qty: 100 2RF amitriptyline 25 mg tablet 25 mg PO BEDTIME Qty: 90 1RF ipratropium-albuterol 0.5 mg-3 mg(2.5 mg base)/3 mL solution for nebulization 3 ml inhalation QID PRN (Reason: shortness of breath) Qty: 180 5RF (DME) FreeStyle Mary Ann 14 Day [place]hemia Misc See Rx Instructions .Route Qty: 1 0RF Rx Instructions: As directed (DME) pen needle, diabetic [BD Ultra-Fine Cindy Pen Needle] 32 gauge x 5/32 needle See Rx Instructions .ROUTE .MEDSUPPLY Qty: 100 12RF Rx Instructions: twice daily aspirin 81 mg tablet,delayed release (DR/EC) 81 mg PO DAILY 90 Days Qty: 90 3RF atorvastatin 40 mg tablet 40 mg PO DAILY Qty: 90 3RF (DME) ADULT BRIEFS (size XL) XL See Rx Instructions .Route .MEDSUPPLY Qty: 100 12RF Rx Instructions: As directed (DME) ADULT PULL-UPS (size XL) XL See Rx Instructions .Route .MEDSUPPLY Qty: 100 12RF Rx Instructions: As directed (DME) lancets [FreeStyle Lancets] 28 gauge misc See Rx Instructions .ROUTE .MEDSUPPLY Qty: 100 0RF Rx Instructions: As directed (DME) lancets [FreeStyle Lancets] 28 gauge misc See Rx Instructions .ROUTE .MEDSUPPLY Qty: 300 3RF Rx Instructions: As directed three time a day loratadine 10 mg tablet 10 mg PO DAILY 90 Days Qty: 90 3RF FreeStyle Mary Ann 14 Day Sensor Kit 1 ea topical Q2W Qty: 2 6RF valsartan 320 mg tablet 320 mg PO DAILY Qty: 90 1RF lidocaine [Lidoderm] 5 % adhesive patch,medicated 1 patch topical DAILY 30 Days Qty: 30 3RF Rx Instructions: leave on most painful area for up to 12 hrs montelukast 10 mg tablet 10 mg PO BEDTIME Qty: 90 1RF (DME) OneTouch Verio test strips Strip See Rx Instructions .Route Qty: 100 5RF Rx Instructions: As directed tests 4X/day (DME) blood-glucose meter [OneTouch Verio Flex meter] Misc See Rx Instructions .Route Qty: 1 0RF Rx Instructions: As directed trsts 4 X/day (DME) lancets [OneTouch Delica Plus Lancet] 30 gauge misc See Rx Instructions .Route Qty: 100 4RF Rx Instructions: As directed-tests 4 X/day (DME) blood-glucose meter Misc See Rx Instructions .ROUTE .MEDSUPPLY Qty: 1 0RF Rx Instructions: Three times a day (DME) lancets [OneTouch Delica Lancets] 33 gauge misc See Rx Instructions .ROUTE .MEDSUPPLY Qty: 100 11RF Rx Instructions: Three times a day (DME) OneTouch Verio test strips Strip See Rx Instructions .ROUTE .MEDSUPPLY Qty: 100 11RF Rx Instructions: Three times a day ibuprofen 800 mg tablet 800 mg PO TID PRN (Reason: for pain) Qty: 90 2RF metformin 500 mg tablet See Rx Instructions PO .COMPLEX 30 Days Qty: 90 5RF Rx Instructions: 1 tablet in the morning and 2 tablets in evening PO; glucose 4 gram tablet,chewable 12 g PO Q15M Qty: 60 2RF doxycycline hyclate 100 mg capsule 100 mg PO BID 10 Days Qty: 20 0RF metoprolol succinate 50 mg tablet extended release 24 hr 50 mg PO DAILY 30 Days Qty: 30 5RF (DME) Shower Chair Misc See Rx Instructions .Route Qty: 1 0RF Rx Instructions: As directed Flovent HFA 220 mcg/actuation HFA aerosol inhaler 1 puff PO BID Qty: 12 5RF fluticasone propionate 50 mcg/actuation spray,suspension 2 spray intranasal DAILY 30 Days Qty: 48 11RF dexlansoprazole 60 mg capsule,biphase delayed releas 60 mg PO DAILY Qty: 90 1RF albuterol sulfate 90 mcg/actuation HFA aerosol inhaler 2 puff inhalation QID PRN (Reason: bronchospasm) Qty: 8.5 3RF cholecalciferol (vitamin D3) 50 mcg (2,000 unit) capsule 50 mcg PO DAILY 90 Days Qty: 90 3RF tizanidine 4 mg tablet 4 mg PO TID PRN (Reason: muscle spasticity) Qty: 90 6RF (DME) DISPOSABLE WIPES See Rx Instructions .Route .MEDSUPPLY Qty: 100 12RF Rx Instructions: As directed duloxetine 60 mg capsule,delayed release(DR/EC) 60 mg PO DAILY Qty: 90 3RF hydrochlorothiazide 25 mg tablet 25 mg PO DAILY 90 Days Qty: 90 1RF pregabalin 150 mg capsule 150 mg PO Q8H 30 Days Qty: 90 0RF tramadol 50 mg tablet 50 mg PO TID PRN (Reason: pain) 30 Days Qty: 90 0RF (DME) blood pressure monitor Kit See Rx Instructions .Route Qty: 1 0RF Rx Instructions: As directed (DME) FOUR-PRONGED CANE See Rx Instructions .Route .MEDSUPPLY Qty: 1 0RF Rx Instructions: As directed valacyclovir 500 mg tablet 500 mg PO BID Qty: 14 0RF peg 3350-electrolytes [Golytely] [id number] -5.86 gram recon soln 240 ml PO Q10M 1 Days Qty: 4000 0RF Rx Instructions: until fecal effluent is clear; do not exceed a total volume of 2,000 mL Linzess 72 mcg capsule 72 mcg PO QAM Qty: 30 6RF OsmoPrep 1.5 gram tablet 4 tab PO Q15M Qty: 32 0RF Rx Instructions: administer with 240 mL of clear fluid escitalopram oxalate 5 mg tablet 5 mg PO DAILY memantine 10 mg tablet 10 mg PO BID albuterol sulfate 2.5 mg /3 mL (0.083 %) solution for nebulization 2.5 mg inhalation Q4-6H PRN (Reason: shortness of breath or wheezing) Qty: 75 3RF Stiolto Respimat 2.5-2.5 mcg/actuation mist 2 puff inhalation DAILY Qty: 4 11RF prednisone 10 mg tablet See Rx Instructions PO DAILY 10 Days Qty: 15 0RF Rx Instructions: PO daily; Take 2 tabs daily x 5 days, then 1 tab x 5 days benzonatate 200 mg capsule 200 mg PO BID PRN (Reason: cough) 30 Days Qty: 30 11RF lorazepam 1 mg tablet PO Trulicity 3 mg/0.5 mL pen injector 3 mg subcut QWEEK Qty: 2 5RF insulin glargine [Lantus Solostar U-100 Insulin] 100 unit/mL (3 mL) insulin pen 20 unit subcut QAM Qty: 15 5RF (DME) pen needle, diabetic [Comfort EZ Pen Munith] 32 gauge x 5/32 needle See Rx Instructions .Route Qty: 50 5RF Rx Instructions: As directed injects once a day Referrals: Leroy Jauregui MD [Primary Care Provider] - 3 days Interventions: ED Discharge Assessment Last Done: 12/30/22 22:45 Discharge Date/Time: 12/30/22 22:47
[2022-12-30 15:19] LABS: MANUAL DIFF FLAG NO
[2022-12-30 15:22] LABS: Basophils Absolute Auto 0.1 X10*3/uL (0.0-0.2); Basophils Percent Auto 0.6 % (0-2); Eosinophils Absolute Auto 0.4 X10*3/uL (0.0-0.4); Eosinophils Percent Auto 3.7 % (0-4); Hemoglobin 13.7 g/dl (12.0-16.0); Imm Gran Abs Auto 0.06 X10*3/uL (0.00-0.03); Imm Gran Pct Auto 0.5 % (0.0-0.4); Lymphocytes Absolute Auto 4.6 X10*3/uL (1.2-4.9); Lymphocytes Percent Auto 42.1 % (20-40); Mean Corpuscular HGB Conc 32.6 g/dl (31.0-35.0); Mean Corpuscular Hemoglobin 27.3 pg (27.0-33.0); Mean Corpuscular Volume 83.8 fL (80.0-98.0); Mean Platelet Volume 10.6 fL (9.4-12.3); Monocytes Absolute Auto 0.7 X10*3/uL (0.1-1.2); Monocytes Percent Auto 6.2 % (2-11); Neutrophils Absolute Auto 5.1 x10*3/uL (2.0-8.3); Neutrophils Percent Auto 46.9 % (45-73); Platelet Count 371 X10*3/uL (160-400); Red Blood Count 5.01 X10*6/uL (4.20-5.50); Red Cell Distribution Width 13.5 % (11.0-16.0)
[2022-12-30 15:24] LABS: Appearance Urine Clear; Color Urine Yellow; Glucose Urine UA Negative (Negative); Leukocyte Esterase Urine Trace (Negative); Nitrite Urine Negative (Negative); PH 5.5 (5.0-9.0); UMIC TRIGGER UACC YES; Urine Blood Negative (Negative); Urine Ketones Negative (Negative); Urine Protein Negative (Neg-Trace)
[2022-12-30 15:38] LABS: Alanine Aminotransferase 24 U/L (0-31); Albumin Level 4.3 g/dL (3.5-5.0); Alkaline Phosphatase 163 U/L (39-117); Anion Gap 15 (12-20); Aspartate Amino Transferase 47 U/L (5-31); Bilirubin Direct 0.3 mg/dL (0.0-0.5); Bilirubin Total 0.7 mg/dL (0.0-1.0); Blood Urea Nitrogen 16 mg/dL (9-16); Calcium 10.6 mg/dL (8.4-10.2); Carbon Dioxide 29 mmol/L (22-29); Chloride 100 mmol/L (96-108); Creatinine Clr Calc Pharmacy 80.3; Estimated Glomerular Filt Rate > 60; Glucose Random 162 mg/dL (60-115); Lipase 37 U/L (8-78); Magnesium 1.6 mg/dL (1.6-2.6); Sodium 140 mmol/L (135-145); Total Protein 8.2 g/dL (6.5-8.0)
[2022-12-30 15:39] LABS: Bacteria Urine None Seen (None Seen); Hyaline Casts Urine 0-2 /LPF (0-2); RBC Urine 0-2 /HPF (0-2); WBC Urine 0-5 /HPF (0-5)
[2022-12-30] MEDS: Famotidine 20 MG TABLET PO (17:10)
[2022-12-30] MEDS: Lidocaine HCl Viscous 2 % 15 ML SOLUTION MUCOUS MEM (17:11)
[2022-12-30] MEDS: Magnesium Hydrox/Alum Hydrox 30 ML ORAL.SUSP PO (17:11)
[2022-12-30 17:31] VITALS: BP 119/59; PULSE 74; RESP 16; TEMP 36.8; O2SAT 98
[2022-12-30 18:06] LABS: COVID-19 Test Negative (Negative); IDNOW Serial# 55D5AD1C
--- NOTE | 2022-12-30 18:26 | ECG_ITS ---
Test Reason : NAUSEA Blood Pressure : / mmHG Vent. Rate : 072 BPM Atrial Rate : 072 BPM P-R Int : 164 ms QRS Dur : 142 ms QT Int : 444 ms P-R-T Axes : 056 -17 096 degrees QTc Int : 486 ms Normal sinus rhythm Left bundle branch block Abnormal ECG No significant changes seen Referred By: Chuyita Bass Electronically Signed By:VIANCA COTTON MD
[2022-12-30 19:09] LABS: Troponin-I High Sensitivity 18.1 ng/L (<3.5-17.0)
[2022-12-30 19:14] LABS: Glucose, Whole Blood 114 mg/dL (60-115)
[2022-12-30] MEDS: 0.9 % Sodium Chloride 1,000 ML 999 ML IV (19:22)
[2022-12-30 19:24] LABS: TSH reflex Free T4 1.26 uIU/mL (0.32-4.0)
--- NOTE | 2022-12-30 19:27 | PC.NURSE ---
Pt ca&ox4, no signs of distress. Pt denies pain. Pt medicated per mar. Pts granddaughter remains at bedside.
--- NOTE | 2022-12-30 21:00 | PC.NURSE ---
Pt ca&ox4, no signs of distress. Pt family at bedside. Pt requesting to use the bathroom. Pt placed on bedside commode. Pt requesting what the plan is. Regulatory Agency Director called and this RN explained to pt trop came back elevated and a repeat trop will be done within the hour. Pt tearful. This RN also spoke with pts son on the phone by pts request. Pt assisted back into bed. Plan of care ongoing.
[2022-12-30 21:16] VITALS: BP 126/66; PULSE 78; RESP 13; TEMP 36.3; O2SAT 100
[2022-12-30 21:16] LABS: Glucose, Whole Blood 115 mg/dL (60-115)
[2022-12-30 21:35] LABS: Troponin-I High Sensitivity 19.2 ng/L (<3.5-17.0)
== END 2022-12-30 22:47 | disposition home or self-care (01) ==
PROVIDERS: Physician Assistant; Physician Assistant Medical; Student in an Organized Health Care Education/Training Program; Emergency Provider Emergency Medicine; PCP Internal Medicine
DX: K29.70 Gastritis, unspecified, without bleeding (principal); R11.2 Nausea with vomiting, unspecified; R19.7 Diarrhea, unspecified; R94.31 Abnormal electrocardiogram [ECG] [EKG]; Z11.52 Encounter for screening for COVID-19; Z20.822 Contact with and (suspected) exposure to COVID-19; Z79.899 Other long term (current) drug therapy
CPT/HCPCS: 36415; 80048; 80076; 81001; 82947; 83690; 83735; 84443; 84484; 85025; 87635; 93005; 96360; 96361; 99284

== ENCOUNTER 2023-01-01 14:55 | Outpatient (AMB) | payer MEDICARE, MEDICAID, SELFPAY ==
--- NOTE | 2023-01-01 14:59 | A.OFFVIS_ITS ---
Intake Vital Signs 01/01/23 15:08 Height 5 ft 3 in Weight 231 lb 0.711 oz BMI 40.9 BP 94/68 Blood Pressure Location Rt brachial Position Sitting Pulse 91 Intake Visit Reasons: Abdominal pain Intake Note: Patient present to in office visit today in follow up of abdominal pain. CC: Patient states she was seen in the ER on 12/30 with c/o sweats, nausea, vomiting, and diarrhea. She was diagnosed with gastritis. She states she was giv en Pantoprazole 40 mg once a day and advised to take the Dexlansoprazole BID. She reports weakness, sweats, nausea, and upset stomach. It Service Continuity Supervisor Required: Yes Accompanied by: Self / Same As Patient Allergies penicillin G Allergy (Severe, Verified 01/28/23 14:49) Itching latex Allergy (Intermediate, Verified 01/28/23 14:49) Unknown nitrofurantoin Allergy (Intermediate, Verified 01/28/23 14:49) itching and redness (in the legs) Medication List - Last Reconciled 01/01/23 by VINAY Phillips [ADULT BRIEFS (size XL) As directed] [ADULT PULL-UPS (size XL) As directed] albuterol sulfate 90 mcg/actuation 2 puffs inhalation QID PRN albuterol sulfate 2.5 mg (3 mL) inhalation Q4-6H PRN alcohol swabs 1 pad topical TID amitriptyline 25 mg PO BEDTIME aspirin 81 mg PO DAILY 90 days atorvastatin 40 mg PO DAILY azithromycin 250 mg PO 3XW benzonatate 200 mg PO BID PRN 30 days blood pressure monitor As directed blood sugar diagnostic (OneTouch Verio test strips) Three times a day blood sugar diagnostic (OneTouch Verio test strips) As directed tests 4X/day blood-glucose meter Three times a day blood-glucose meter (OneTouch Verio Flex Meter) As directed trsts 4 X/day cholecalciferol (vitamin D3) 50 mcg PO DAILY 90 days dexlansoprazole 60 mg PO DAILY [DISPOSABLE WIPES As directed] dulaglutide (Trulicity) 3 mg (0.5 mL) subcut QWEEK duloxetine 60 mg PO DAILY escitalopram oxalate 5 mg PO DAILY flash glucose scanning reader (TopixStyle [place] 14 Day [place]) As directed flash glucose sensor (FreeStyle [place] 14 Day Sensor kit) 1 ea topical Q2W fluticasone propionate 220 mcg/actuation (Flovent HFA) 1 puff PO BID fluticasone propionate 50 mcg/actuation 2 sprays intranasal DAILY 30 days [FOUR-PRONGED CANE As directed] glucose 12 grams (3 x 4 gram) PO Q15M hydrochlorothiazide 25 mg PO DAILY 90 days ibuprofen 800 mg PO TID PRN insulin glargine (Lantus Solostar U-100 Insulin) 20 units (0.2 mL) subcut QAM ipratropium-albuterol 0.5 mg-3 mg(2.5 mg base)/3 mL 3 mL inhalation QID PRN lancets (OneTouch Delica Lancets) Three times a day lancets (FreeStyle Lancets) As directed three time a day lancets (OneTouch Delica Plus Lancet) As directed-tests 4 X/day lancets (FreeStyle Lancets) As directed lidocaine 5% (Lidoderm) 1 patch topical DAILY 30 days [LIGHTWEIGHT WALKER WITH SEAT walker with seat] linaclotide (Linzess) 72 mcg PO QAM loratadine 10 mg PO DAILY 90 days lorazepam mg PO memantine 10 mg PO BID metformin 1 tablet in the morning and 2 tablets in evening PO; 30 days metoclopramide HCl (Reglan) 5 mg PO QIDACHS metoprolol succinate ER 50 mg PO DAILY 30 days montelukast 10 mg PO BEDTIME nystatin 1 appl topical TID pantoprazole (Protonix) 40 mg PO DAILY peg 3350-electrolytes 236-22.74-6.74 -5.86 gram (Golytely) 240 mL PO Q10M 1 day pen needle, diabetic (BD Ultra-Fine Cindy Pen Needle) twice daily pen needle, diabetic (Comfort EZ Pen [place]) As directed injects once a day prednisone PO daily; Take 2 tabs daily x 5 days, then 1 tab x 5 days 10 days pregabalin 150 mg PO Q8H 30 days [ROLLATOR with SEAT As directed] Shower Chair As directed sod phos mono-sod phos dibasic 1.5 gram (OsmoPrep) 4 tabs PO Q15M sod picosulf-mag ox-citric ac 10 mg-3.5 gram- 12 gram/160 mL (Clenpiq) 160 mL PO DAILY tiotropium-olodaterol 2.5-2.5 mcg/actuation (Stiolto Respimat) 2 puffs inhalation DAILY tizanidine 4 mg PO TID PRN tramadol 50 mg PO TID PRN 30 days valacyclovir 500 mg PO BID valsartan 320 mg PO DAILY HPI Abdominal pain HPI Details Assessment & Plan (1) Chronic idiopathic constipation: ?Code(s): K59.04 - Chronic idiopathic constipation ?Plan: BENINESE #Agueda lIVE She has had a lot of medication changes with regards to her diabetes. Her diarrhea resolved after they stopped lantus and lowered her metformin by 500mg. With this, her diarrhea resolved. She had the amitriptyline lowered back to 25mg and is doing well now. She will be seeing the special tester to make sure this is sufficiently controlling her diabetes. Now she is having more CIC.? She wants to restart her Linzess but she was using 145 micro g as needed I am going to reduce her to 72 micro g and hope that she can use it more regularly to get her bowels trained into a pattern. She was never contacted for her colonoscopy. She has multiple respiratory problems; COPD, ILDEFONSO, partial lobectomy and we will need clearance w/Dr. Hoffmann, she denies any cardiac problems. There are no prior problems with anesthesia or sedation. NO ID problems. NO FHX of crc; brother might have had polyps. She really disliked the liquid prep, would like a pill prep. Will try to send a pill prep if covered by insurance. ROV 3 mos. (2) GERD (gastroesophageal reflux diseas e): ?Code(s): K21.9 - Gastro-esophageal reflux disease without esophagitis ?Qualifiers: ?Esophagitis presence:?without esophagitis? Qualified Code(s):?K21.9 - Gastro-esophageal reflux disease without esophagitis (3) Gastroparesis: ?Code(s): K31.84 - Gastroparesis (4) Morbid obesity with BMI of 40.0-44.9 , adult: ?Code(s): E66.01 - Morbid (severe) obesity due to excess calories; Z68.41 - Body mass index [BMI] 40.0-44.9, adult (5) Obstructive sleep apnea: ?Comment: Has significant cardiovascular disease ?Code(s): G47.33 - Obstructive sleep apnea (adult) (pediatric) (6) Asthma: ?Code(s): J45.909 - Unspecified asthma, uncomplicated ?Qualifiers: ?Asthma complication type:?uncomplicated??Asthma persistence:? persistent??Asthma severity:?moderate? Qualified Code(s):?J45.40 - Moderate persistent asthma, uncomplicated (7) Carcinoid tumor: ?Comment: ([place] [facility] ?Code(s): D3A.00 - Benign carcinoid tumor of unspecified site ?Qualifiers: ?Carcinoid tumor location:?lung??Carcinoid tumor malignancy status:? malignant? 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 ? ? Medications: New linaclotide (Linze ss) 72 mcg? PO QAM 30 caps 6RF K52.1 - Toxic miguel roenteritis and co litis, K59.04 - Ch ronic idiopathic c onstipation ? sod phos mono-sod phos dibasic 1.5 g aiyana (OsmoPrep) ?? administer with 24 0 mL of clear flui d 4 tabs? PO Q15M 32 tabs 0RF colonosc opyprep ? ? Refilled dexlansoprazole (D exilant) 60 mg? PO DAILY 30 caps 6RF K59.04 - Chronic i diopathic constip COLONOSCOPY NOT YET SCHEDULED-NO ORDERING COMPUTER BIOPSY CORRESPONDENCE On 12/30/22 @ 16:46 Sy López Wrote To Yesika Beck Called PT and notified per message below. She stated that she is right now at the ER here at [facility] [place]. On 12/30/22 @ 15:12 Yesika Beck Wrote To Sy López Sorry, I really need to see her 1st since this is a new development before I will know what I want to order. On 12/30/22 @ 13:55 Sy López Wrote To Beck PT called stating that she has an appt scheduled for Wednesday01/01/23 for nausea, sweats, and upset stomach for 5 days. She is requesting to have imaging orders or labs to have done before her appt. Please advise. TODAY'S VISIT BENINESE #[id number] Jaky She is here with a female family member who is supportive. She says she is having nausea, reflux, weakness and sweating for a week. She was seen in the ER and she was told she could take the medicine that the gastro sent me and I should take it bid. This medicine was Dexilant, which is a dual release medication and should not be taken twice. Not to mention that she will run out of it. Then she also received pantoprazole 40mg and I think it would be better to take dexilant qam and the other qhs. However, review her medication list shows that she is no longer taking her Reglan. We have gone back and forth with this many times in the past where she has presented with similar symptoms that was because she stop taking this medication. She has always tolerated extremely well without any side effects. I will restart at the lower dose of 5 mg 4 times a day just because of the history of diarrhea. She says now she is having more constipation and she is adherent to her Linzess 72 mcg. In terms of her colonoscopy she says she did a Cologuard but I can not find any were in her chart. She is agreeable to having the colonoscopy scheduled if we can get her lower volume prep. Apparently we had trouble getting anything covered by her insurance so I will give her sample of Clenpiq and ask for her EGD/colonoscopy to be scheduled. He has a history of coronary artery disease is stable she also has sleep apnea and asthma as well as a history of a lung lobectomy. There are no prior problems with anesthesia or sedation. There are no infectious disease problems. 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 sample of Clenpiq given for colon prep ROV 3 weeks. [facility] Medical History Weakness of left upper extremity Weakness of both lower extremities Joint pain in fingers of both hands Joint pain in both hands Bilateral knee pain Vitamin B12 deficiency Bilateral ankle pain Rash Right foot pain Medicare annual wellness visit, subsequent Cervical cancer screening Bronchopneumonia Chronic low back pain Bilateral foot pain Bilateral hip pain Annual physical exam Chest pain Stool incontinence Hyperlipidemia LDL goal <70 Bilateral hip pain Fibromyalgia Chronic bronchitis Vitamin D deficiency Post-thoracotomy pain syndrome COPD (chronic obstructive pulmonary disease) Depression Anxiety Type 2 diabetes mellitus with diabetic polyneuropathy Pulmonary nodules Allergic rhinitis GERD (gastroesophageal reflux disease) Morbid obesity with BMI of 40.0-44.9, adult Asthma Obstructive sleep apnea Lumbar degenerative disc disease Carcinoid tumor Coronary artery disease Benign essential hypertension Type 2 diabetes mellitus with hyperglycemia, with long-term current use of insulin Surgical History History of colonoscopy (~12/2013) History of tubal ligation History of lung biopsy (~07/2016) History of esophagogastroduodenoscopy (EGD) (~10/2011) History of lobectomy of lung (~08/2016) History of rectal sphincterotomy (~11/2013) History of cardiac cath (~07/2018) Family History Father Stroke Hypertension Diabetes Mother Diabetes Hypertension Other Arthritis Lupus Social History Household Members: Spouse Housing: Apartment Alcohol intake: never Patient Tobacco Use Status: Former Tobacco user Tobacco use type: Cigarette e-Cigarette/Vaping Use: Never Used Second Hand Smoke Exposure: Yes service: No Current occupational status: disabled Cognitive needs: No Hearing needs: No Vision needs: Yes Review of Systems Const Reports excessive sweating, Denies fatigue, Denies fever(s), Denies night sweats, Reports poor appetite and Denies weight loss ENT Reports Normal hearing present, Denies dental pain, Denies dysphagia, Denies hearing loss, Denies mouth pain, Denies odynophagia, Denies throat swelling, Denies tongue swelling and Reports other (Dentition adequate) Card Reports no additional complaints Resp Reports no additional complaints GI Denies abdominal pain, Denies melena, Denies bloating, Denies hematochezia, Reports constipation, Denies GI cramping, Denies dysphagia, Denies excessive flatus, Reports early satiety, Reports heartburn, Denies diarrhea, Reports nausea, Denies odynophagia, Denies vomiting and Denies hematemesis Skin/Breast Denies pruritus, Denies lesions, Denies rash and Denies jaundice Neuro Reports Normal hearing present and Denies Abnormal speech present Endo Reports excessive sweating and Denies fatigue Aller/Immun Denies throat swelling and Denies tongue swelling Physical Exam Vital Signs: Last Vital Signs Pulse 91 01/01/23 15:08 BP 94/68 01/01/23 15:08 BMI result Body Mass Index 40.9 Const General: cooperative, no acute distress, well developed and well groomed Nutritional Appearance: well nourished and obese Orientation/consciousness: oriented to person, oriented to place and oriented to time Limitations: language barrier HEENT Head: Yes normocephalic and Yes atraumatic Eyes General: appearance normal, both eyes and all related structures Pupils: Equal, round and reactive pupils present Neck Neck: Yes normal visual inspection and Yes no lymphadenopathy Thyroid: Thyroid normal Resp Effort & Inspection: normal respiratory effort and able to speak in complete sentences Auscultation: clear to auscultation bilaterally Cardio Rate: regular rate Rhythm: regular rhythm Heart sounds: Normal, physiologic split S2 sound present Peripheral pulses: radial pulses present and posterior tibial pulses present GI Inspection: No distended, Yes Abdominal panniculus present and Yes obesity Palpation (GI): Soft to palpation, nontender, no guarding, not rigid and No hepatosplenomegaly present Percussion: Yes normal to percussion Auscultation: normal bowel sounds Rectal Exam - Female: deferred Skin General skin exam: no rashes or lesions noted, turgor normal, skin not dry, no jaundice, No spider nevi and no striae Rashes: no rashes Nails: normal Neuro General: oriented to person, oriented to place and oriented to time Cranial nerves: Yes Equal, round and reactive pupils present and Yes Normal hearing present Speech: No Abnormal speech present Extrem General: Yes normal to inspection, No clubbing, No cyanosis and No edema Psych Appearance: grossly normal and well kempt Mental Status: mental status grossly normal Speech and movement: Normal speech and movement present Affect: normal affect Attitude: cooperative Thought process: Normal thought process present and not confabulating Thought content: Normal thought content present Insight: Limited insight present (Psych) and Poor insight present (Psych) Judgement: Limited judgement present (Psych) and Poor judgement present (Psych) Assessment & Plan Assessment & Plan (1) Nausea and vomiting: Code(s): R11.2 - Nausea with vomiting, unspecified Plan: BENINESE #[id number] Jaky She is here with a female family member who is supportive. She says she is having nausea, reflux, weakness and sweating for a week. She was seen in the ER and she was told she could take the medicine that the gastro sent me and I should take it bid. This medicine was Dexilant, which is a dual release medication and should not be taken twice. Not to mention that she will run out of it. Then she also received pantoprazole 40mg and I think it would be better to take dexilant qam and the other qhs. However, review her medication list shows that she is no longer taking her Reglan. We have gone back and forth with this many times in the past where she has presented with similar symptoms that was because she stop taking this medication. She has always tolerated extremely well without any side effects. I will restart at the lower dose of 5 mg 4 times a day just because of the history of diarrhea. She says now she is having more constipation and she is adherent to her Linzess 72 mcg. In terms of her colonoscopy she says she did a Cologuard but I can not find any were in her chart. She is agreeable to having the colonoscopy scheduled if we can get her lower volume prep. Apparently we had trouble getting anything covered by her insurance so I will give her sample of Clenpiq and ask for her EGD/colonoscopy to be scheduled. He has a history of coronary artery disease is stable she also has sleep apnea and asthma as well as a history of a lung lobectomy. There are no prior problems with anesthesia or sedation. There are no infectious disease problems. 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 sample of Clenpiq given for colon prep ROV 3 weeks. (2) Diabetic gastroparesis: Code(s): E11.43 - Type 2 diabetes mellitus with diabetic autonomic (poly)neuropathy; K31.84 - Gastroparesis (3) GERD (gastroesophageal reflux disease): Code(s): K21.9 - Gastro-esophageal reflux disease without esophagitis Qualifiers: Esophagitis presence: without esophagitis Qualified Code(s): K21.9 - Gastro-esophageal reflux disease without esophagitis (4) History of colonoscopy: Onset Date: ~12/2013 Comment: (Dr. 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 (6) Morbid obesity with BMI of 40.0-44.9, adult: Code(s): E66.01 - Morbid (severe) obesity due to excess calories; Z68.41 - Body mass index [BMI] 40.0-44.9, adult (7) Chronic idiopathic constipation: Code(s): K59.04 - Chronic idiopathic constipation (8) Asthma: Code(s): J45.909 - Unspecified asthma, uncomplicated Qualifiers: Asthma complication type: with acute exacerbation Asthma persistence: persistent Asthma severity: moderate Qualified Code(s): J45.41 - Moderate persistent asthma with (acute) exacerbation (9) Obstructive sleep apnea: Comment: no evidence of ILDEFONSO on recent inlab PSG Code(s): G47.33 - Obstructive sleep apnea (adult) (pediatric) (10) Coronary artery disease: Code(s): I25.10 - Atherosclerotic heart disease of [place] coronary artery without angina pectoris Qualifiers: Associated angina: without angina Coronary Disease-Associated Artery/Lesion type: [place] artery [place] vs. transplanted heart: [place] heart Qualified Code(s): I25.10 - Atherosclerotic heart disease of [place] coronary artery without angina pectoris (11) Pre-op examination: Code(s): Z01.818 - Encounter for other preprocedural examination Plan BENINESE #[id number] Jaky She is here with a female family member who is supportive. She says she is having nausea, reflux, weakness and sweating for a week. She was seen in the ER and she was told she could take the medicine that the gastro sent me and I should take it bid. This medicine was Dexilant, which is a dual re lease medication and should not be taken twice. Not to mention that she will run out of it. Then she also received pantoprazole 40mg and I think it would be better to take dexilant qam and the other qhs. However, review her medication list shows that she is no longer taking her Reglan. We have gone back and forth with this many times in the past where she has presented with similar symptoms that was because she stop taking this medication. She has always tolerated extremely well without any side effects. I will restart at the lower dose of 5 mg 4 times a day just because of the history of diarrhea. She says now she is having more constipation and she is adherent to her Linzess 72 mcg. In terms of her colonoscopy she says she did a Cologuard but I can not find any were in her chart. She is agreeable to having the colonoscopy scheduled if we can get her lower volume prep. Apparently we had trouble getting anything covered by her insurance so I will give her sample of Clenpiq and ask for her EGD/colonoscopy to be scheduled. He has a history of coronary artery disease is stable she also has sleep apnea and asthma as well as a history of a lung lobectomy. There are no prior problems with anesthesia or sedation. There are no infectious disease problems. 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 sample of Clenpiq given for colon prep ROV 3 weeks. . Medications: New metoclopramide HCl (Reglan) provider aware of possible interactions with psych meds and is monitoring 5 mg PO QIDACHS 120 tabs 6RF Coding Level of Care Code Est Pt Level 4 (65201) Diagnoses Nausea and vomiting R11.2 Diabetic gastroparesis E11.43; K31.84 Gastroesophageal reflux disease without esophagitis K21.9 Esophagitis presence: without esophagitis History of colonoscopy Z98.890 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 Carcinoid tumor location: lung Carcinoid tumor malignancy status: malignant Morbid obesity with BMI of 40.0-44.9, adult E66.01; Z68.41 Chronic idiopathic constipation K59.04 Moderate persistent asthma with acute exacerbation J45.41 Asthma complication type: with acute exacerbation Asthma persistence: persistent Asthma severity: moderate Obstructive sleep apnea G47.33 Coronary artery disease involving [place] coronary artery of [place] heart without angina pectoris I25.10 Associated angina: without angina Coronary Disease-Associated Artery/Lesion type: [place] artery [place] vs. transplanted heart: [place] heart Pre-op examination Z01.818
[2023-01-01 15:08] VITALS: BP 94/68; PULSE 91; BMI 40.9
== END 2023-01-01 15:49 | disposition home or self-care (01) ==
PROVIDERS: PCP Internal Medicine; Visit Provider Nurse Practitioner
DX: R11.2 Nausea with vomiting, unspecified (principal); E11.43 Type 2 diabetes mellitus with diabetic autonomic (poly)neuropathy; K31.84 Gastroparesis; K21.9 Gastro-esophageal reflux disease without esophagitis; Z98.890 Other specified postprocedural states; C7A.090 Malignant carcinoid tumor of the bronchus and lung; E66.01 Morbid (severe) obesity due to excess calories; Z68.41 Body mass index [BMI] 40.0-44.9, adult; K59.04 Chronic idiopathic constipation; J45.41 Moderate persistent asthma with (acute) exacerbation; G47.33 Obstructive sleep apnea (adult) (pediatric); I25.10 Atherosclerotic heart disease of native coronary artery without angina pectoris; Z01.818 Encounter for other preprocedural examination
CPT/HCPCS: 99214

== ENCOUNTER → 2023-01-01 14:55 | Outpatient (BNVA) | payer MEDICARE, MEDICAID, SELFPAY | PROVIDERS: PCP Internal Medicine; Visit Provider Nurse Practitioner | DX: Z01.818 Encounter for other preprocedural examination (principal); R11.2 Nausea with vomiting, unspecified; I25.10 Atherosclerotic heart disease of native coronary artery without angina pectoris; I10 Essential (primary) hypertension; G47.33 Obstructive sleep apnea (adult) (pediatric); J45.41 Moderate persistent asthma with (acute) exacerbation; K59.04 Chronic idiopathic constipation; E66.01 Morbid (severe) obesity due to excess calories; C7A.090 Malignant carcinoid tumor of the bronchus and lung; K21.9 Gastro-esophageal reflux disease without esophagitis; K31.84 Gastroparesis; E11.43 Type 2 diabetes mellitus with diabetic autonomic (poly)neuropathy; Z68.41 Body mass index [BMI] 40.0-44.9, adult | CPT/HCPCS: 99212 ==

== ENCOUNTER 2023-01-12 09:55 | Outpatient (REF) | payer MEDICARE, MEDICAID, SELFPAY ==
[2023-01-12 10:13] LABS: MANUAL DIFF FLAG NO
[2023-01-12 10:43] LABS: Appearance Urine Clear; Color Urine Dark Yellow; Glucose Urine UA Negative (Negative); Leukocyte Esterase Urine Trace (Negative); Nitrite Urine Negative (Negative); PH 6.5 (5.0-9.0); UMIC TRIGGER UACC YES; Urine Blood Negative (Negative); Urine Ketones Trace mg/dL (Negative); Urine Protein Negative (Neg-Trace)
[2023-01-12 10:46] LABS: Bacteria Urine Trace (None Seen); Hyaline Casts Urine 0-2 /LPF (0-2); Squamous Epithelial Cell Urine >20 /HPF (0-2); WBC Urine 0-5 /HPF (0-5)
[2023-01-12 10:46] LABS: Basophils Absolute Auto 0.1 X10*3/uL (0.0-0.2); Basophils Percent Auto 0.5 % (0-2); Eosinophils Absolute Auto 0.4 X10*3/uL (0.0-0.4); Eosinophils Percent Auto 3.8 % (0-4); Hematocrit 37.6 % (37.0-47.0); Hemoglobin 12.1 g/dl (12.0-16.0); Imm Gran Abs Auto 0.04 X10*3/uL (0.00-0.03); Imm Gran Pct Auto 0.4 % (0.0-0.4); Lymphocytes Absolute Auto 3.6 X10*3/uL (1.2-4.9); Lymphocytes Percent Auto 32.7 % (20-40); Mean Corpuscular HGB Conc 32.2 g/dl (31.0-35.0); Mean Corpuscular Hemoglobin 27.1 pg (27.0-33.0); Mean Corpuscular Volume 84.3 fL (80.0-98.0); Monocytes Absolute Auto 0.7 X10*3/uL (0.1-1.2); Monocytes Percent Auto 6.2 % (2-11); Neutrophils Absolute Auto 6.2 x10*3/uL (2.0-8.3); Neutrophils Percent Auto 56.4 % (45-73); Platelet Count 313 X10*3/uL (160-400); Red Blood Count 4.46 X10*6/uL (4.20-5.50); Red Cell Distribution Width 13.4 % (11.0-16.0); White Blood Count 10.9 X10*3/uL (4.8-10.8)
[2023-01-12 10:55] LABS: Estimated Average Glucose 180 mg/dL; Hemoglobin A1c % 7.9 % (<6.0)
[2023-01-12 11:28] LABS: Alanine Aminotransferase 18 U/L (0-31); Alkaline Phosphatase 148 U/L (39-117); Anion Gap 16 (12-20); Aspartate Amino Transferase 37 U/L (5-31); Bilirubin Total 0.9 mg/dL (0.0-1.0); Blood Urea Nitrogen 13 mg/dL (9-16); Calcium 9.6 mg/dL (8.4-10.2); Carbon Dioxide 27 mmol/L (22-29); Chloride 102 mmol/L (96-108); Cholesterol 130 mg/dL (<200); Estimated Glomerular Filt Rate > 60; Glucose Fasting 153 mg/dL (60-99); HDL Cholesterol 37 mg/dL (>40); LDL Cholesterol Calculated 78 mg/dL (<100); Potassium 4.2 mmol/L (3.3-5.1); Sodium 141 mmol/L (135-145); Total Protein 7.6 g/dL (6.5-8.0); Triglycerides 79 mg/dL (<150)
[2023-01-12 11:43] LABS: Creatinine Urine 254.33 mg/dL; Microalbum/Creatinine Ratio Ur 4.3 ug/mg cr (<30)
[2023-01-12 11:52] LABS: Folate 14.4 ng/mL (> or = 4.0); Vitamin B12 244 pg/mL (200-900)
== END 2023-01-12 09:56 | disposition home or self-care (01) ==
LOC: HO.LAB 09:55
PROVIDERS: PCP Internal Medicine; Visit Provider Internal Medicine
DX: E78.00 Pure hypercholesterolemia, unspecified (principal); I10 Essential (primary) hypertension; E11.9 Type 2 diabetes mellitus without complications; E53.8 Deficiency of other specified B group vitamins; E55.9 Vitamin D deficiency, unspecified; R30.0 Dysuria
CPT/HCPCS: 36415; 80053; 80061; 81001; 82043; 82306; 82570; 82607; 82746; 83036; 84443; 85025

== ENCOUNTER 2023-01-18 10:11 | Outpatient (AMB) | payer MEDICARE, MEDICAID, SELFPAY ==
[2023-01-18 10:13] VITALS: BP 132/84; PULSE 82; TEMP 36.1; O2SAT 97; BMI 41.7
--- NOTE | 2023-01-18 10:13 | MHC.OFFVIS ---
Intake Vital Signs 01/18/23 10:13 Height 5 ft 3 in Weight 235 lb 3.732 oz BMI 41.7 BP 132/84 Blood Pressure Location Rt brachial Position Sitting Pulse 82 Pulse Source Pulse Oximeter Temp 97 F Temp Source Skin Pulse Oximetry (%) 97 Oxygen Delivery Method Room Air Intake Visit Reasons: Joint Pain Intake Note: New patient internally referred to us for pain and stiffness in multiple joints. No prior service desk associate. 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 Garcia is a very pleasant 67 year old female who presents with her SURGICAL GARMENT FITTER for evaluation and management of her chronic joint pain. Patient recently evaluated by Dr Duggan for bilateral knee OA, and was referred to pain management for her lower back pain and pain management refer her to rheumatology. She reports that she is weak and in pain especially to her left shoulder, her knees and feet. This has been going on for a long time but has gotten worse in the last year. She has tried muscle relaxers, NSAIDs and Tramadol with limited benefit. She is currently taking lyrica and Ibuprofen, prescribed by PCP with some relief of her to her back pain but not much to the other joints. She also uses topical lidocaine patches to right lower back and states that helps. She says this level of pain is negatively impacting her general activity, mood and makes it difficult to walk. She also c/o pain, burning, numbness and tingling to bilateral feet. Reports having EMG in the past and was told she has diabetic neuropathy. She reports she had steroid injections in both knees but cannot remember when was the last one Patient denies Raynaud's phenomenon, butterfly rash on face. She had a recent rashes to right upper arm and was treated with topical steroids - it is resolved; denies photosensitivity - getting sick or developing a rash from being out in the sun; denies blood or froth in urine; patient denies hx of SOB, chest pain. Patient denies hx of Carditis or Pleuritis. Patient denies any history of DVT/PE. The patient reports never have had o take aspirin or a blood thinner during her successful pregnancies. Denies fevers, excessive fatigue, unexplained weight-loss or weight-gain, Denies: thinning hair or hair loss Denies: dry, itchy eyes, red burning eyes needing steroids to treat; dry mouth, mouth sores or ulcers; nose bleed; ringing in the ear, Denies abdominal pain, blood or mucous in stool; nausea, vomiting and diarrhea , difficulty swallowing, has heartburn and takes medication. She reports morning stiffness lasting the whole day. She denies seeing her joints red. She reports the knees swell sometimes but is not sure if they get warm. Hx of Right Lung Ca 2020 - under monitoring. Uptodate malignancy screening for colonoscopy, mammogram She does not remember if she has done a bone density scan. After visit Findings: Left knee injections Cardiac and vascular consults for leg swelling Podiatry for fungal nail care [facility] Medical History (Updated 01/20/23 @ 08:55 [facility] Weakness of left upper extremity Weakness of both lower extremities Joint pain in fingers of both hands Joint pain in both hands Bilateral knee pain Vitamin B12 deficiency Bilateral ankle pain Rash Right foot pain Medicare annual wellness visit, subsequent Cervical cancer screening Bronchopneumonia Chronic low back pain Bilateral foot pain Bilateral hip pain Annual physical exam Chest pain Stool incontinence Hyperlipidemia LDL goal <70 Bilateral hip pain Fibromyalgia Chronic bronchitis Vitamin D deficiency Post-thoracotomy pain syndrome COPD (chronic obstructive pulmonary disease) Depression Anxiety Type 2 diabetes mellitus with diabetic polyneuropathy Pulmonary nodules Allergic rhinitis GERD (gastroesophageal reflux disease) Morbid obesity with BMI of 40.0-44.9, adult Asthma Obstructive sleep apnea Lumbar degenerative disc disease Carcinoid tumor Coronary artery disease Benign essential hypertension Type 2 diabetes mellitus with hyperglycemia, with long-term current use of insulin Surgical History History of colonoscopy (~12/2013) History of tubal ligation History of lung biopsy (~07/2016) History of esophagogastroduodenoscopy (EGD) (~10/2011) History of lobectomy of lung (~08/2016) History of rectal sphincterotomy (~11/2013) History of cardiac cath (~07/2018) Family History (Updated 01/18/23 @ 10:18 by DAVINA Ward) Father Stroke Hypertension Diabetes Mother Diabetes Hypertension Other Arthritis Lupus Social History Household Members: Spouse Housing: Apartment Alcohol intake: never Patient Tobacco Use Status: Former Tobacco user Tobacco use type: Cigarette e-Cigarette/Vaping Use: Never Used Second Hand Smoke Exposure: Yes service: No Current occupational status: disabled Cognitive needs: No Hearing needs: No Vision needs: Yes Female Reproductive History Menstrual Total pregnancies: 6 Ab spontaneous: 1 Review of Systems Const All systems reviewed & are unremarkable except as noted in HPI and below Physical Exam Vital Signs: Last Vital Signs Temp 97 F 01/18/23 10:13 Pulse 82 01/18/23 10:13 BP 132/84 01/18/23 10:13 Pulse Ox 97 01/18/23 10:13 Oxygen Delivery Method Room Air 01/18/23 10:13 BMI result Body Mass Index 41.7 APPEARANCE: Patient in no acute distress, obese EYES no redness, pupils equal and reactive to light, eyelids normal EARS:? External ear normal, canal clear and tympanic membrane normal. NOSE/SINUS:? Airflow through both nares, no nasal discharge, no bleeding THROAT:? Oral mucosa moist, no ulcerations NECK:? No thyromegaly or masses, no adenopathy, trachea midline. HEART:? Regular rhythm, S1-S2 heard, no murmurs, rubs or gallops. LUNG:? Clear to percussion and auscultation, decreased in the bases ABD:? Normal bowel sounds, no organomegaly, masses or tenderness. larged abdomen, soft EXTREMITIES:? trace edema, no calf tenderness, normal peripheral pulses. Upper extremities strength 3/5 right 2/5 left. NEURO:? Oriented and alert x3.? No focal weakness.? Reflexes symmetric.? Gait normal. SKIN:? There are no skin lesions evident. No objective signs of Raynaud's phenomenon. JOINT EXAM: ?Cervical Spine:.? Full range of motion without pain; no tenderness. Thoracic Spine:.? No scoliosis.? No tenderness on palpation. Lumbar Spine:.? Alignment normal.? Full range of motion without pain, no tenderness. Chest Wall:.? No tenderness, swelling, increased warmth or erythema. Hands:.? Normal pain-free range of motion - mild tenderness to IP joints, no swelling, increased warmth or erythema. Able to make a full fist and has a good instrument and control service person strength. Wrists:.? Normal pain-free range of motion without tenderness, swelling, increased warmth or erythema. Elbows:. Normal pain-free range of motion, mild tenderness at bilateral lateral epicondyle, no swelling, increased warmth or erythema. Shoulders:.?? Moderate tenderness, weakness, no swelling, increased warmth or erythema. Unable to lift left shoulder past breast. marked tenderness at tendons Hips:.? limited range of motion with pain. Trochanteric tenderness, gluteal tenderness Hip bursa:.? Tenderness to trochanteric area Left > right, 9/10 Left piriformis muscle tenderness Knees:.??Quad strength 3/5 right, 2/5 left. Bilateral limited range of motion with tenderness, mild swelling, no increased warmth or erythema.? There is mild effusion Ankles:.? Normal range of motion with mild pain. tenderness to bilateral achilles, no swelling, increased warmth or erythema. Feet:.? Normal range of motion. moderate tenderness across metatarsals, trace swelling to dorsum, no increased warmth or erythema. Tender points:? No tenderness to digital palpation at the occiput, second rib; Tender trapezius, lateral epicondyle, knees, greater trochanter and gluteal area bilaterally. Office Procedures Joint Injection/Drain Joint Injection/Drain Primary Site: left knee Prep: site was prepped using aseptic technique Injected: 80 mg of, Kenalog, with 1 mL of and 1% plain lidocaine Approach Used: anterolateral Procedure: The patient tolerated the procedure well, but had some pain with the injection and there was some relief with the local anesthesia Coding 44039 - Large joint Procedure code (CPT) selection complete Results Reviewed Results Reviewed: ADM Date: 11/20/20 EXAMINATION: XR SHOULDER, LEFT CLINICAL INFORMATION: Left shoulder pain. COMPARISON: Left shoulder radiographs dated 11/02/2013. TECHNIQUE: AP external rotation, Grashey, scapular Y, and axillary views of the left shoulder. FINDINGS: Inferior subluxation of the humeral head, which may be related to capsular laxity. Findings are similar when compared to the prior examination. No acute fracture. Acromioclavicular marginal osteophytes, slightly increased. Glenohumeral joint space narrowing with subchondral sclerosis, subchondral cystic change, and marginal osteophytes, slightly progressed. Lobulated calcification associated with the distal supraspinatus tendon measuring up to 2.1 cm and increased when compared to the prior examination. XR/XR shoulder LT min 2V IMPRESSION: Moderate acromioclavicular and glenohumeral osteoarthritis, slightly progressed. Prominent supraspinatus calcific tendinitis, increased when compared to the prior examination. MR#: [id number] : 07/09 ADM Date: 12/28/22 oc: [id number] Attending Dr: Leroy Jauregui MD Ordering Physician: Leroy Jauregui MD Date of Service: 12/28/22 Procedure(s): XR knee RT 3V Accession Number(s): [id number] cc: Leroy Jauregui MD~ EXAMINATION: XR KNEE, RIGHT XR KNEE, LEFT XR ANKLE, RIGHT XR ANKLE, LEFT CLINICAL INFORMATION: Pain in right ankle and joints of right foot. Knee pain right. COMPARISON: None available. TECHNIQUE: AP, lateral, and oblique views of the bilateral ankles. 4 views of the left knee. 3 views of the right knee. FINDINGS: RIGHT ANKLE: Moderate plantar and small dorsal calcaneal spurs. Redemonstration of ossification or calcification in the region of the distal Achilles tendon. Mild degenerative changes in the midfoot with hypertrophic change along the dorsal aspect of the naviculocuneiform joints and the tarsometatarsal joints. LEFT ANKLE: Moderate plantar and small dorsal calcaneal spurs. Mild degenerative changes in the midfoot with hypertrophic change along the dorsal aspect of the naviculocuneiform joints and the tarsometatarsal joints. RIGHT KNEE: Small quadriceps enthesophyte. Vascular calcifications. Degenerative changes with narrowing in the patellofemoral and medial joint spaces. Small medial marginal and posterior patellar osteophytes. Faint curvilinear calcification along the medial aspect of the medial femoral condyle. LEFT KNEE: Small quadriceps enthesophyte. Vascular calcifications. Degenerative changes with narrowing in the patellofemoral and medial joint spaces. Small medial marginal and posterior patellar osteophytes. Suprapatellar effusion present XR/XR knee RT 3V IMPRESSION: 1. Mild degenerative changes in the right and left midfoot. 2. Bilateral calcaneal spurring. 3. Redemonstration of ossification or calcification in the region of the distal Achilles tendon, possibly related to prior injury of the Achilles. 4. Moderate degenerative changes in the bilateral knees. Additional imaging with CT scan or MRI should be considered for better visualization as these modalities are much more sensitive for detection of fracture or other underlying pathology. Assessment & Plan Assessment & Plan (1) Joint pain in both hands: Code(s): M25.541 - Pain in joints of right hand; M25.542 - Pain in joints of left hand (2) Joint pain in fingers of both hands: Code(s): M25.541 - Pain in joints of right hand; M25.542 - Pain in joints of left hand (3) Bilateral knee pain: Code(s): M25.561 - Pain in right knee; M25.562 - Pain in left knee Qualifiers: Chronicity: chronic Qualified Code(s): M25.561 - Pain in right knee; M25.562 - Pain in left knee; G89.29 - Other chronic pain (4) Weakness of both lower extremities: Code(s): R29.898 - Other symptoms and signs involving the musculoskeletal system (5) Weakness of left upper extremity: Code(s): R29.898 - Other symptoms and signs involving the musculoskeletal system (6) Pes anserine bursitis: Code(s): M70.50 - Other bursitis of knee, unspecified knee (7) Trochanteric bursitis of left hip: Code(s): M70.62 - Trochanteric bursitis, left hip (8) Osteoarthritis of left knee: Code(s): M17.12 - Unilateral primary osteoarthritis, left knee Qualifiers: Osteoarthritis type: primary Qualified Code(s): M17.12 - Unilateral primary osteoarthritis, left knee (9) Calcific tendinitis of left shoulder: Code(s): M75.32 - Calcific tendinitis of left shoulder Plan Ms. Garcia 67 yoF was referred by pain management for evaluation of multiple joint pain, questioning underling inflammatory arthritis. #Hand Pain: Patient states that her hand are stiff in the morning and it is hard to make a fist sometimes. On PE she does have a good strong grasp in the right hand, 4/5 but at 2/5 on the left. #Weakness of Extremities: left upper arm weakness, and weakness of lower extremities. Patient finds that she has to use a walker for support when she walks. She also difficulty sitting and standing from the toilet and would like a toilet seat to help her with that. She is concerned that she is losing her independence and is afraid she will end up like her brother whom she says has muscular dystrophy and is unable to keep himself upright and had to be strapped and harnessed to be held upright. On PE her strength testing against my resistance was at best 2 to 3/5, left sides weaker than the right. Significant weakness to the she left shoulder where she cannot lift her left arm past her breast. Patient says she was evaluated by Orthopedic and had received trigger point injection without improvement but she has to follow-up. I think patient will benefit from physical therapy for strengthening. I advised patient that initially physical therapy will not seem comfortable but if she sticks to it she will see some benefit. I also encouraged that she continues to do the exercises at home. She also noted that she had some significant weight loss and have not seen improvement to her joint pain. #Bursitis/Knee pain/OA: Physical examination was significant for left trochanteric bursitis, severe piriformis muscle tenderness, bilateral pes anserine bursitis, left lateral epicondyle tenderness, bilateral knee tenderness(l>r). I will obtain labs for further evaluation for inflammatory or autoimmune pathology. She would like a joint injection today for the left knee. Given her level of pain it seem reasonable to do. If this provides relief, patient will call to have the right knee injected. Patient educated about the injectable steroids and possible effects on on blood sugars. Further review of her chart shows that she also received an injection from Ortho on 10/30/2022 #Calcific Tendinitis Left Shoulder(Explore PsA?). An in dept review of the images over the last 3 years, shows that there is progression in the calcific tendinitis of several joints, most severely in the the left shoulder. Lifting the left arm causes the patient much pain, to the point of inferred weakness. Moderate enthesitis in both Achilles and moderate calcaneal spurs are also present along with hypertrophic changes in her foot - this clinically correlates. One wonders with such prevalence of enthesitis, would PsA, be reasonable to consider. However, Calcific tendonitis can also be prevalent in T2DM and patient has long standing history. She did receive a steroid injection to the left shoulder, but denied relief, she has an appt to follow-up with Pain Management (PM). There is much overlap going on with her care. I see where PM (11/17/22 visit) has referred her to PT - Patient states she was not aware. I also have referred her to PT referral. At next visit in 2 weeks, I will explore possible PsA. I spent over 60 minutes examining patient, discussing options, after visit phone call, reviewing patient records and diagnostics, ordering diagnostics and documenting. Orders: Orders Aldolase 01/19/23 M25.50 - Pain in unspecified joint, M25.541 - Pain in joints of right hand, M25.542 - Pain in joints of left hand, M25.561 - Pain in right knee, M25.562 - Pain in left knee C Reactive Protein 01/19/23 M25.50 - Pain in unspecified joint, M25.541 - Pain in joints of right hand, M25.542 - Pain in joints of left hand, M25.561 - Pain in right knee, M25.562 - Pain in left knee HESHAM Reflex Titer and Pattern 01/19/23 M25.50 - Pain in unspecified joint, M25.541 - Pain in joints of right hand, M25.542 - Pain in joints of left hand, M25.561 - Pain in right knee, M25.562 - Pain in left knee Anti Extractable Nuclear Ag 01/19/23 M25.50 - Pain in unspecified joint, M25.541 - Pain in joints of right hand, M25.542 - Pain in joints of left hand, M25.561 - Pain in right knee, M25.562 - Pain in left knee Vitamin D 25-OH (D2 and D3) 01/19/23 M25.50 - Pain in unspecified joint, M25.541 - Pain in joints of right hand, M25.542 - Pain in joints of left hand, M25.561 - Pain in right knee, M25.562 - Pain in left knee Cyclic Citrullinated Peptide 01/19/23 M25.50 - Pain in unspecified joint, M25.541 - Pain in joints of right hand, M25.542 - Pain in joints of left hand, M25.561 - Pain in right knee, M25.562 - Pain in left knee Erythrocyte Sedimentation Rate 01/19/23 M25.50 - Pain in unspecified joint, M25.541 - Pain in joints of right hand, M25.542 - Pain in joints of left hand, M25.561 - Pain in right knee, M25.562 - Pain in left knee Rheumatoid Factor 01/19/23 M25.50 - Pain in unspecified joint, M25.541 - Pain in joints of right hand, M25.542 - Pain in joints of left hand, M25.561 - Pain in right knee, M25.562 - Pain in left knee PT Evaluation and Treatment 01/18/23 M25.561 - Pain in right knee, M25.562 - Pain in left knee, R29.898 - Other symptoms and signs involving the musculoskeletal system AMB Joint Injection/Aspiration 01/18/23 M17.12 - Unilateral primary osteoarthritis, left knee Coding Level of Care Code New Pt Level 5 (24255) Diagnoses Joint pain in both hands M25.541; M25.542 Joint pain in fingers of both hands M25.541; M25.542 Chronic pain of both knees M25.561; M25.562; G89.29 Chronicity: chronic Weakness of both lower extremities R29.898 Weakness of left upper extremity R29.898 Pes anserine bursitis M70.50 Trochanteric bursitis of left hip M70.62 Primary osteoarthritis of left knee M17.12 Osteoarthritis type: primary Calcific tendinitis of left shoulder M75.32 CPT Codes Coding - 44135 Large joint: 11155 - Large joint ([id number])
== END 2023-01-18 11:27 | disposition home or self-care (01) ==
PROVIDERS: PCP Internal Medicine; Visit Provider Nurse Practitioner Family
DX: M25.541 Pain in joints of right hand (principal); M25.542 Pain in joints of left hand; M25.561 Pain in right knee; M25.562 Pain in left knee; G89.29 Other chronic pain; R29.898 Other symptoms and signs involving the musculoskeletal system; M70.50 Other bursitis of knee, unspecified knee; M70.62 Trochanteric bursitis, left hip; M17.12 Unilateral primary osteoarthritis, left knee; M75.32 Calcific tendinitis of left shoulder
CPT/HCPCS: 20610; 99205; 99215

== ENCOUNTER → 2023-01-18 10:11 | Outpatient (BNVA) | payer MEDICARE, MEDICAID, SELFPAY | PROVIDERS: PCP Internal Medicine; Visit Provider Nurse Practitioner Family | DX: M25.562 Pain in left knee (principal); M17.12 Unilateral primary osteoarthritis, left knee; M25.561 Pain in right knee; M25.541 Pain in joints of right hand; M25.542 Pain in joints of left hand; R29.898 Other symptoms and signs involving the musculoskeletal system; M70.50 Other bursitis of knee, unspecified knee; M70.62 Trochanteric bursitis, left hip; M75.32 Calcific tendinitis of left shoulder | CPT/HCPCS: 20610; 99202; J3301 ==

== ENCOUNTER 2023-01-19 10:48 | Outpatient (REF) | payer MEDICARE, MEDICAID, SELFPAY ==
[2023-01-19 12:12] LABS: Rheumatoid Factor < 13.0 IU/mL (<15.0)
[2023-01-19 12:21] LABS: C Reactive Protein 0.46 mg/dL (< or = 0.50)
[2023-01-19 12:31] LABS: Erythrocyte Sedimentation Rate 40 MM/HR (0-20)
[2023-01-21 13:22] LABS: Cyclic Citrullinated Peptide <16 UNITS
[2023-01-21 18:34] LABS: SM/Ribonucleoprotein Ab <1.0 NEG AI (<1.0 NEG); Smith Protein <1.0 NEG AI (<1.0 NEG)
[2023-01-23 15:39] LABS: Vitamin D 25-OH, D2 <4 ng/mL; Vitamin D 25-OH, D3 42 ng/mL; Vitamin D 25-OH, Total 42 ng/mL (30-100)
[2023-01-24 10:38] LABS: Anti Nuclear Antibody Screen NEGATIVE (NEGATIVE)
[2023-01-25 11:20] LABS: Aldolase 4.5 U/L (<=8.1)
== END 2023-01-19 10:49 | disposition home or self-care (01) ==
LOC: HO.LAB 10:48
PROVIDERS: PCP Internal Medicine; Visit Provider Nurse Practitioner Family
DX: M25.50 Pain in unspecified joint (principal); M25.541 Pain in joints of right hand; M25.542 Pain in joints of left hand; M25.561 Pain in right knee; M25.562 Pain in left knee; E55.9 Vitamin D deficiency, unspecified
CPT/HCPCS: 36415; 82085; 82306; 85652; 86038; 86140; 86200; 86235; 86431

== ENCOUNTER 2023-01-27 10:04 | Outpatient (AMB) | payer MEDICARE, MEDICAID, SELFPAY ==
--- NOTE | 2023-01-27 10:14 | MHC.OFFVIS ---
Intake Vital Signs 01/27/23 10:15 Height 5 ft 3 in Weight 235 lb 0.204 oz BMI 41.6 Intake Visit Reasons: 3 week follow up Intake Note: Patient present to in office visit today in follow up of abdominal pain. CC: Patient reports she has been feeling better. She would like to know when she will having colonoscopy done. 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 She says she is having nausea, reflux, weakness and sweating for a week. She was seen in the ER and she was told she could take the medicine that the gastro sent me and I should take it bid. This medicine was Dexilant, which is a dual release medication and should not be taken twice. Not to mention that she will run out of it. Then she also received pantoprazole 40mg and I think it would be better to take dexilant qam and the other qhs. However, review her medication list shows that she is no longer taking her Reglan. We have gone back and forth with this many times in the past where she has presented with similar symptoms that was because she stop taking this medication. She has always tolerated extremely well without any side effects. I will restart at the lower dose of 5 mg 4 times a day just because of the history of diarrhea. She says now she is having more constipation and she is adherent to her Linzess 72 mcg. In terms of her colonoscopy she says she did a Cologuard but I can not find any were in her chart. She is agreeable to having the colonoscopy scheduled if we can get her lower volume prep. Apparently we had trouble getting anything covered by her insurance so I will give her sample of Clenpiq and ask for her EGD/colonoscopy to be scheduled. He has a history of coronary artery disease is stable she also has sleep apnea and asthma as well as a history of a lung lobectomy. There are no prior problems with anesthesia or sedation. There are no infectious disease problems. 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 sample of Clenpiq given for colon prep ROV 3 weeks. (2) Diabetic gastroparesis: Code(s): E11.43 - Type 2 diabetes mellitus with diabetic autonomic (poly)neuropathy; K31.84 - Gastroparesis (3) GERD (gastroesophageal reflux disease): Code(s): K21.9 - Gastro-esophageal reflux disease without esophagitis Qualifiers: Esophagitis presence: without esophagitis Qualified Code(s): K21.9 - Gastro-esophageal reflux disease without esophagitis (4) History of colonoscopy: Onset Date: ~12/2013 Comment: ([place]. 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 (6) Morbid obesity with BMI of 40.0-44.9, adult: Code(s): E66.01 - Morbid (severe) obesity due to excess calories; Z68.41 - Body mass index [BMI] 40.0-44.9, adult (7) Chronic idiopathic constipation: Code(s): K59.04 - Chronic idiopathic constipation (8) Asthma: Code(s): J45.909 - Unspecified asthma, uncomplicated Qualifiers: Asthma severity: moderate Asthma persistence: persistent Asthma complication type: with acute exacerbation Qualified Code(s): J45.41 - Moderate persistent asthma with (acute) exacerbation (9) Obstructive sleep apnea: Comment: no evidence of ILDEFONSO on recent inlab PSG Code(s): G47.33 - Obstructive sleep apnea (adult) (pediatric) (10) Coronary artery disease: Code(s): I25.10 - Atherosclerotic heart disease of [place] coronary artery without angina pectoris Qualifiers: Coronary Disease-Associated Artery/Lesion type: [place] artery [place] vs. transplanted heart: [place] heart Associated angina: without angina Qualified Code(s): I25.10 - Atherosclerotic heart disease of [place] coronary artery without angina pectoris (11) Pre-op examination: Code(s): Z01.818 - Encounter for other preprocedural examination Medications: New metoclopramide HCl (Reglan) provi jamarcus aware of possi ble interactions w [facility] psych meds and is monitoring 5 mg PO QIDACHS 1 20 tabs 6RF CORRESPONDENCE The On 12/30/22 @ 16:46 Sy López Wrote To KiranJune Called PT and notified per message below. She stated that she is right now at the [place] here at [facility] [place]. On 12/30/22 @ 15:12 Yesika Beck Wrote To Sy López Sorry, I really need to see her 1st since this is a new development before I will know what I want to order. On 12/30/22 @ 13:55 Sy López Wrote To KiranJune PT called stating that she has an appt scheduled for Wednesday01/01/23 for nausea, sweats, and upset stomach for 5 days. She is requesting to have imaging orders or labs to have done before her appt. Please advise COLONOSCOPY BIOPSY TODAY'S VISIT KOSOVAN #Ambreen Acuña Her dtr is with her and is supportive. She received the reglan 5mg and it helped her about 80 % and she is eating better. She is having no a/e. These were reviewed. She is moving her bowels well every day. She has a new complaint of pain on the right side of her body that is worst in the RLQ and it feels swollen. It wakes her up at night and she has to walk until it goes away. Her feel also will tingle. The pain is like I have a child there and it moves down and I feel a twisting. She has not heard re: colonoscopy another reminder sent to central scheduler. Will trial bentyl 2 tabs qhs and 1 tid prn and get XR thoracic and lumbar ROV 4 weeks. [facility] Medical History Weakness of left upper extremity Weakness of both lower extremities Joint pain in fingers of both hands Joint pain in both hands Bilateral knee pain Vitamin B12 deficiency Bilateral ankle pain Rash Right foot pain Medicare annual wellness visit, subsequent Cervical cancer screening Bronchopneumonia Chronic low back pain Bilateral foot pain Bilateral hip pain Annual physical exam Chest pain Stool incontinence Hyperlipidemia LDL goal <70 Bilateral hip pain Fibromyalgia Chronic bronchitis Vitamin D deficiency Post-thoracotomy pain syndrome COPD (chronic obstructive pulmonary disease) Depression Anxiety Type 2 diabetes mellitus with diabetic polyneuropathy Pulmonary nodules Allergic rhinitis GERD (gastroesophageal reflux disease) Morbid obesity with BMI of 40.0-44.9, adult Asthma Obstructive sleep apnea Lumbar degenerative disc disease Carcinoid tumor Coronary artery disease Benign essential hypertension Type 2 diabetes mellitus with hyperglycemia, with long-term current use of insulin Surgical History History of colonoscopy (~12/2013) History of tubal ligation History of lung biopsy (~07/2016) History of esophagogastroduodenoscopy (EGD) (~10/2011) History of lobectomy of lung (~08/2016) History of rectal sphincterotomy (~11/2013) History of cardiac cath (~07/2018) Family History Father Stroke Hypertension Diabetes Mother Diabetes Hypertension Other Arthritis Lupus Social History Household Members: Spouse Housing: Apartment Alcohol intake: never Patient Tobacco Use Status: Former Tobacco user Tobacco use type: Cigarette e-Cigarette/Vaping Use: Never Used Second Hand Smoke Exposure: Yes service: No Current occupational status: disabled Cognitive needs: No Hearing needs: No Vision needs: Yes Review of Systems Const Denies fatigue, Denies fever(s), Denies night sweats, Denies poor appetite and Denies weight loss ENT Reports Normal hearing present, Denies dysphagia, Reports neck pain, Denies odynophagia, Denies throat swelling and Denies tongue swelling Card Reports no additional complaints Resp Reports no additional complaints GI Reports abdominal pain, Denies melena, Denies bloating, Denies hematochezia, Denies constipation, Reports GI cramping, Denies dysphagia, Denies excessive flatus, Reports early satiety, Reports heartburn, Denies diarrhea, Reports nausea, Denies odynophagia, Denies vomiting and Denies hematemesis Reports flank pain Musc Reports back pain and Reports neck pain Skin/Breast Denies pruritus, Denies lesions, Denies rash and Denies jaundice Neuro Reports Normal hearing present and Denies Abnormal speech present Endo Denies fatigue Aller/Immun Denies throat swelling and Denies tongue swelling Physical Exam Vital Signs: BMI result Body Mass Index 41.6 Const General: cooperative, no acute distress, well developed and well groomed Nutritional Appearance: well nourished and obese Orientation/consciousness: oriented to person, oriented to place and oriented to time Limitations: ambulation with cane HEENT Head: Yes normocephalic and Yes atraumatic Eyes General: appearance normal, both eyes and all related structures Pupils: Equal, round and reactive pupils present Neck Neck: Yes normal visual inspection and Yes no lymphadenopathy Thyroid: Thyroid normal Resp Effort & Inspection: normal respiratory effort and able to speak in complete sentences Auscultation: clear to auscultation bilaterally Cardio Rate: regular rate Rhythm: regular rhythm Heart sounds: Normal, physiologic split S2 sound present Peripheral pulses: radial pulses present and posterior tibial pulses present GI Inspection: No distended, Yes Abdominal panniculus present and Yes obesity Palpation (GI): Soft to palpation, nontender, no guarding, not rigid and No hepatosplenomegaly present Percussion: Yes normal to percussion Auscultation: normal bowel sounds Rectal Exam - Female: deferred Skin General skin exam: no rashes or lesions noted, turgor normal, skin not dry, no jaundice, No spider nevi and no striae Rashes: no rashes Nails: normal Neuro General: oriented to person, oriented to place and oriented to time Cranial nerves: Yes Equal, round and reactive pupils present and Yes Normal hearing present Speech: No Abnormal speech present Extrem General: Yes normal to inspection, No clubbing, No cyanosis and No edema Psych Appearance: grossly normal and well kempt Mental Status: mental status grossly normal Speech and movement: Normal speech and movement present Affect: normal affect Attitude: cooperative Thought process: Normal thought process present and not confabulating Thought content: Normal thought content present Insight: Limited insight present (Psych) Judgement: Limited judgement present (Psych) Assessment & Plan Assessment & Plan (1) Diabetic gastroparesis: Code(s): E11.43 - Type 2 diabetes mellitus with diabetic autonomic (poly)neuropathy; K31.84 - Gastroparesis (2) Nausea and vomiting: Code(s): R11.2 - Nausea with vomiting, unspecified (3) GERD (gastroesophageal reflux disease): Code(s): K21.9 - Gastro-esophageal reflux disease without esophagitis Qualifiers: Esophagitis presence: without esophagitis Qualified Code(s): K21.9 - Gastro-esophageal reflux disease without esophagitis (4) Right sided abdominal pain: Code(s): R10.9 - Unspecified abdominal pain (5) Back pain: Code(s): M54.9 - Dorsalgia, unspecified Plan KOSOVAN #Ambreen Live Her dtr is with her and is supportive. She received the reglan 5mg and it helped her about 80 % and she is eating better. She is having no a/e. These were reviewed. She is moving her bowels well every day. She has a new complaint of pain on the right side of her body that is worst in the RLQ and it feels swollen. It wakes her up at night and she has to walk until it goes away. Her feel also will tingle. The pain is like I have a child there and it moves down and I feel a twisting. She has not heard re: colonoscopy another reminder sent to central scheduler. Will trial bentyl 2 tabs qhs and 1 tid prn and get XR thoracic and lumbar spine to rule out spinal pathology is a contributing factor since this is an unusual presentation of abdominal pain. ROV 4 weeks. COLONOSCOPY BIOPSY Orders: Orders XR lumbar spine 2-3V 01/27/23 R10.9 - Unspecified abdominal pain, M54.9 - Dorsalgia, unspecified XR thoracic spine 2V 01/27/23 R10.9 - Unspecified abdominal pain, M54.9 - Dorsalgia, unspecified Medications: New metoclopramide HCl (Reglan) 10 mg PO QIDACHS 120 tabs 6RF E11.43 - Type 2 diabetes mellitus with diabetic autonomic (poly)neuropathy, K31.84 - Gastroparesis, R11.2 - Nausea with vomiting, unspecified dicyclomine take 2 tabs qhs and 1 tab tid prn orally 4 times a day; 180 tabs 1RF 30 days R10.9 - Unspecified abdominal pain On Hold metoclopramide HCl (Reglan) Hold Comment: Doctor's Order 5 mg PO QIDACHS 120 tabs 6RF Coding Level of Care Code Est Pt Level 3 (45874) Diagnoses Diabetic gastroparesis E11.43; K31.84 Nausea and vomiting R11.2 Gastroesophageal reflux disease without esophagitis K21.9 Esophagitis presence: without esophagitis Right sided abdominal pain R10.9 Back pain M54.9
[2023-01-27 10:15] VITALS: BMI 41.6
== END 2023-01-27 11:18 | disposition home or self-care (01) ==
PROVIDERS: PCP Internal Medicine; Visit Provider Nurse Practitioner
DX: E11.43 Type 2 diabetes mellitus with diabetic autonomic (poly)neuropathy (principal); K31.84 Gastroparesis; R11.2 Nausea with vomiting, unspecified; K21.9 Gastro-esophageal reflux disease without esophagitis; R10.9 Unspecified abdominal pain; M54.9 Dorsalgia, unspecified
CPT/HCPCS: 99213

== ENCOUNTER 2023-01-27 10:04 | Outpatient (REF) | payer MEDICARE, MEDICAID, SELFPAY ==
--- NOTE | ~2023-01-27 | XR_ITS ---
EXAMINATION: XR THORACOLUMBAR SPINE CLINICAL INFORMATION: Pain COMPARISON: Previous x-ray July 2016 TECHNIQUE: 3 views of the thoracic spine FINDINGS: Bone alignment is normal. No fracture or dislocation. Multilevel degenerative spondylosis and degenerative disc disease of the mid and lower thoracic spine. Paraspinal soft tissues are normal. XR/XR thoracic spine 2V IMPRESSION: Degenerative changes.
--- NOTE | ~2023-01-27 | XR_ITS ---
EXAMINATION: XR LUMBOSACRAL SPINE CLINICAL INFORMATION: Pain COMPARISON: Previous x-ray July 2016 TECHNIQUE: Three views of the lumbosacral spine. FINDINGS: There is minimal 2 to 3 mm anterior subluxation of L4 with respect L5. Bone alignment is otherwise normal. No fracture or dislocation. Disc space narrowing at L1-L2, L3-L4, L4-L5 and L5-S1. Mild degenerative spondylosis at L1-L2 and lower thoracic spine. Atherosclerotic disease. XR/XR lumbar spine 2-3V IMPRESSION: Degenerative changes.
== END 2023-01-27 10:05 | disposition home or self-care (01) ==
LOC: HO.XRAY 10:04
PROVIDERS: PCP Internal Medicine; Visit Provider Nurse Practitioner
DX: R10.9 Unspecified abdominal pain (principal); M54.9 Dorsalgia, unspecified; K21.9 Gastro-esophageal reflux disease without esophagitis; K31.84 Gastroparesis; E11.43 Type 2 diabetes mellitus with diabetic autonomic (poly)neuropathy; I25.10 Atherosclerotic heart disease of native coronary artery without angina pectoris; C7A.090 Malignant carcinoid tumor of the bronchus and lung; E66.01 Morbid (severe) obesity due to excess calories; K59.04 Chronic idiopathic constipation; J45.41 Moderate persistent asthma with (acute) exacerbation; G47.33 Obstructive sleep apnea (adult) (pediatric); R11.2 Nausea with vomiting, unspecified; Z68.41 Body mass index [BMI] 40.0-44.9, adult; Z98.890 Other specified postprocedural states
CPT/HCPCS: 72070; 72100; 99212

== ENCOUNTER 2023-01-28 14:35 | Outpatient (AMB) | payer MEDICARE, MEDICAID, SELFPAY ==
[2023-01-28 14:37] VITALS: BP 122/60; PULSE 73; O2SAT 100; BMI 41.4
--- NOTE | 2023-01-28 14:37 | A.OFFPC_ITS ---
Vital Signs 3 01/28/23 14:37 Height 5 ft 3 in Weight 234 lb BMI 41.4 BP 122/60 Blood Pressure Location Lt brachial Position Sitting Pulse 73 Pulse Source Pulse Oximeter Pulse Oximetry (%) 100 Oxygen Delivery Method Room Air Intake Visit Reasons: dizziness, falls Intake Note: pt states left leg weakness Electric Razor Assembler Required: Yes Electric Razor Assembler Language: Sami Allergies penicillin G Allergy (Severe, Verified 01/28/23 14:49) Itching latex Allergy (Intermediate, Verified 01/28/23 14:49) Unknown nitrofurantoin Allergy (Intermediate, Verified 01/28/23 14:49) itching and redness (in the legs) Medication List - Last Reconciled 01/28/23 by BREONNA Braxton [ADULT BRIEFS (size XL) As directed] [ADULT PULL-UPS (size XL) As directed] albuterol sulfate 90 mcg/actuation 2 puffs inhalation QID PRN albuterol sulfate 2.5 mg (3 mL) inhalation Q4-6H PRN alcohol swabs 1 pad topical TID amitriptyline 25 mg PO BEDTIME aspirin 81 mg PO DAILY 90 days atorvastatin 40 mg PO DAILY benzonatate 200 mg PO BID PRN 30 days blood pressure monitor As directed blood sugar diagnostic (OneTouch Verio test strips) Three times a day blood sugar diagnostic (OneTouch Verio test strips) As directed tests 4X/day blood-glucose meter Three times a day blood-glucose meter (OneTouch Verio Flex Meter) As directed trsts 4 X/day cholecalciferol (vitamin D3) 50 mcg PO DAILY 90 days cyanocobalamin (vitamin B-12) 1,000 mcg PO DAILY 90 days dexlansoprazole 60 mg PO DAILY dicyclomine take 2 tabs qhs and 1 tab tid prn orally 4 times a day; 30 days [DISPOSABLE WIPES As directed] dulaglutide (Trulicity) 3 mg (0.5 mL) subcut QWEEK duloxetine 60 mg PO DAILY escitalopram oxalate 5 mg PO DAILY flash glucose scanning reader ([place] [employer] [place] TeaStyle Mary Ann 14 Day Duncan) As directed flash glucose sensor (FreeStyle Mary Ann 14 Day Sensor kit) 1 ea topical Q2W fluticasone propionate 220 mcg/actuation (Flovent HFA) 1 puff PO BID fluticasone propionate 50 mcg/actuation 2 sprays intranasal DAILY 30 days [FOUR-PRONGED CANE As directed] furosemide 20 mg PO DAILY glucose 12 grams (3 x 4 gram) PO Q15M hydrochlorothiazide 25 mg PO DAILY 90 days ibuprofen 800 mg PO TID PRN insulin glargine (Lantus Solostar U-100 Insulin) 20 units (0.2 mL) subcut QAM ipratropium-albuterol 0.5 mg-3 mg(2.5 mg base)/3 mL 3 mL inhalation QID PRN lancets (OneTouch Delica Lancets) Three times a day lancets (FreeStyle Lancets) As directed three time a day lancets (OneTouch Delica Plus Lancet) As directed-tests 4 X/day lancets (FreeStyle Lancets) As directed lidocaine 5% (Lidoderm) 1 patch topical DAILY 30 days [LIGHTWEIGHT WALKER WITH SEAT walker with seat] linaclotide (Linzess) 72 mcg PO QAM loratadine 10 mg PO DAILY 90 days lorazepam mg PO memantine 10 mg PO BID metformin 1 tablet in the morning and 2 tablets in evening PO; 30 days metoclopramide HCl (Reglan) 10 mg PO QIDACHS metoclopramide HCl (Reglan) 5 mg PO QIDACHS metoprolol succinate ER 50 mg PO DAILY 30 days montelukast 10 mg PO BEDTIME nystatin 1 appl topical TID pantoprazole (Protonix) 40 mg PO DAILY pen needle, diabetic (BD Ultra-Fine Cindy Pen Needle) twice daily pen needle, diabetic (Comfort EZ Pen Bailey) As directed injects once a day prednisone PO daily; Take 2 tabs daily x 5 days, then 1 tab x 5 days 10 days pregabalin 150 mg PO Q8H 30 days [ROLLATOR with SEAT As directed] Shower Chair As directed sod picosulf-mag ox-citric ac 10 mg-3.5 gram- 12 gram/160 mL (Clenpiq) 160 mL PO DAILY tiotropium-olodaterol 2.5-2.5 mcg/actuation (Stiolto Respimat) 2 puffs inhalation DAILY tizanidine 4 mg PO TID PRN tramadol 50 mg PO TID PRN 30 days valacyclovir 500 mg PO BID valsartan 320 mg PO DAILY Tobacco use date assessed: 01/28/23 Fall risk assessment: 2 + Falls in past year Last assessed Fall Risk: 01/28/23 Dental Screening Dental Screen Date: 01/28/23 Did you have a dental visit in the last 12 months?: Yes Did you have a dental problem in the last 6 months where you did not have access to dental care?: No Was dental information given to patient?: Patient has dentist HPI dizziness, falls 2 HPI0 Details Patient is a 67-year-old female who presents today with left leg weakness which is chronic for her although she noticed more in the past 2 weeks left leg greater than than right leg. Patient of Dr. Jauregui. Medical history significant for GERD constipation asthma hypertension diabetes, osteoarthritis of left knee, osteoarthritis of right knee fibromyalgia, lumbar radiculopathy, weakness of both lower extremities. Patient reports that 1 month ago she had a fall due to weakness in her left leg. She also reports left distal lateral leg pain after this fall and also she reports left ankle pain which is was there before this fall. Ambulates with a walker/cane. Patient is a Sami-speaking and RAN Fleming was helping with interpretation. 12/2022 XR/XR ankle LT min 3V IMPRESSION: 1. Mild degenerative changes in the righ t and left midfoot. 2. Bilateral calcaneal spurring. 3. Redemonstration of ossification or ca lcification in the region of the distal Achilles tendon, possibly related to prior injury of the Achilles. 4. Moderate degenerative changes in the bilateral knees. [facility] Medical History Weakness of left upper extremity Weakness of both lower extremities Joint pain in fingers of both hands Joint pain in both hands Bilateral knee pain Vitamin B12 deficiency Bilateral ankle pain Rash Right foot pain Medicare annual wellness visit, subsequent Cervical cancer screening Bronchopneumonia Chronic low back pain Bilateral foot pain Bilateral hip pain Annual physical exam Chest pain Stool incontinence Hyperlipidemia LDL goal <70 Bilateral hip pain Fibromyalgia Chronic bronchitis Vitamin D deficiency Post-thoracotomy pain syndrome COPD (chronic obstructive pulmonary disease) Depression Anxiety Type 2 diabetes mellitus with diabetic polyneuropathy Pulmonary nodules Allergic rhinitis GERD (gastroesophageal reflux disease) Morbid obesity with BMI of 40.0-44.9, adult Asthma Obstructive sleep apnea Lumbar degenerative disc disease Carcinoid tumor Coronary artery disease Benign essential hypertension Type 2 diabetes mellitus with hyperglycemia, with long-term current use of insulin Surgical History History of colonoscopy (~12/2013) History of tubal ligation History of lung biopsy (~07/2016) History of esophagogastroduodenoscopy (EGD) (~10/2011) History of lobectomy of lung (~08/2016) History of rectal sphincterotomy (~11/2013) History of cardiac cath (~07/2018) Family History Father Stroke Hypertension Diabetes Mother Diabetes Hypertension Other Arthritis Lupus Social History Household Members: Spouse Housing: Apartment Alcohol intake: never Patient Tobacco Use Status: Former Tobacco user Tobacco use type: Cigarette e-Cigarette/Vaping Use: Never Used Second Hand Smoke Exposure: Yes service: No Current occupational status: disabled Cognitive needs: No Hearing needs: No Vision needs: Yes Questionnaire Thrive Questionnaire Date Thrive assessed: 01/13/23 AUDIT C Alcohol Use Questionnaire (AUDIT-C) 1. How often do you have a drink containing alcohol?: Never 3. How often do you have six or more drinks on one occasion?: Never Total Score: 0 Score Reviewed/Action Taken: No EVELINE-7 AMB Questionnaire EVELINE-7 Date EVELINE - 7 assessed: 01/13/23 Source: Developed by Drs. Jeffrey Chavez, Marj Villatoro, Vaibhav Pagan and colleagues, with an educational norm from [employer]. Review of Systems Const Denies body aches, Denies chills, Denies fever(s) and Denies headache(s) ENT Reports dizziness (Intermittent chronic), Denies otalgia, Denies headache(s), Denies nasal discharge, Denies sinus pain and Denies sore throat Card Denies chest pain, Denies edema, Denies lightheadedness and Denies dyspnea Resp Denies cough, Denies dyspnea and Denies wheezing GI Denies abdominal pain Denies dysuria Musc Reports as per HPI, Denies myalgias and Reports arthralgias Skin/Breast Denies rash Neuro Reports dizziness (Intermittent chronic) and Denies headache(s) Aller/Immun Denies wheezing Physical exam (Primary Care) Vital Signs: Last Vital Signs Pulse 73 01/28/23 14:37 BP 122/60 01/28/23 14:37 Pulse Ox 100 01/28/23 14:37 Oxygen Delivery Method Room Air 01/28/23 14:37 BMI result Body Mass Index 41.4 Tobacco/Smoking Status: Tobacco use Status Tobacco use date assessed 01/28/23 01/28/23 14:38 Patient Tobacco Use Status Former Tobacco user 01/28/23 14:38 Tobacco use type Cigarette 01/28/23 14:38 e-Cigarette/Vaping Use Never Used 01/28/23 14:38 Thrive Assessment: Date of Thrive Assessment Date Thrive assessed 01/13/23 01/28/23 14:38 Const General: cooperative and no acute distress Orientation/consciousness: patient oriented x3 HENMT Head: Yes normocephalic and Yes atraumatic Throat: Yes posterior oropharynx normal Eyes General: appearance normal, both eyes and all related structures Neck Neck: Yes normal visual inspection and Yes full ROM Resp Effort & Inspection: normal respiratory effort and able to speak in complete sentences Auscultation: clear to auscultation bilaterally, no crackles, no rales, no rhonchi and no wheezes Cardio Rate: regular rate Rhythm: regular rhythm Heart sounds: S1 normal heart sound present and S2 normal heart sound present GI Auscultation: normal bowel sounds Skin General skin exam: no rashes or lesions noted Neuro General: patient oriented x3 Extrem Other: Left ankle normal to inspection, nontender, full range of motion Bilateral lower extremities with spider and varicose veins noted General: Yes full ROM and No edema Ankle/foot/toe images: 2 1. Left lateral leg tender to palpation, skin is intact, no ecchymosis, no swelling, varicose and spider veins noted Assessment and Plan Assessment & Plan (1) Left ankle pain: Code(s): M25.572 - Pain in left ankle and joints of left foot Plan: Podiatry referral for an evaluation and treatment Encouraged heat/cold packs p.r.n. Encouraged rest Will provide patient with diclofenac cream p.r.n. (2) Left leg pain: Code(s): M79.605 - Pain in left leg Plan: Left lateral leg tender to palpation, skin is intact, no ecchymosis, no swelling, varicose and spider veins noted - patient reports that she has vascular provider for varicose veins Will provide patient with diclofenac cream p.r.n. Encouraged heat/cold packs p.r.n. Signs and symptoms reviewed when to notify provider Plan Keep appointment with PCP as scheduled or follow-up sooner as needed Orders: Referrals 2 Podiatry Referral M25.572 - Pain in left ankle and joints of left foot Medications: New 2 diclofenac sodium 1% (Arthritis Pain (diclofenac)) 2 grams topical QID PRN 100 grams 0RF pain M79.605 - Pain in left leg Coding Level of Care Code Est Pt Level 3 (26323) Diagnoses Left ankle pain M25.572 Left leg pain M79.605
== END 2023-01-28 15:17 | disposition home or self-care (01) ==
PROVIDERS: PCP Internal Medicine; Visit Provider Nurse Practitioner Family
DX: M25.572 Pain in left ankle and joints of left foot (principal); M79.605 Pain in left leg
CPT/HCPCS: 99213

== ENCOUNTER 2023-02-01 10:59 | Day surgery (SDC) | payer MEDICARE, MEDICAID, SELFPAY ==
--- NOTE | 2023-01-29 12:01 | HO.ANESPROP2 ---
Documented by User: Deanna Rivera NP 01/29/23 13:15 HPI - Anesthesia Eval Consult details Narrative: 67yo F for Upper Endoscopy and Colonoscopy 01/28/23 Seen at PCP for dizziness (intermit, chronic) and fall with LE pain. Xray negative. Follows [facility] Cardio. 11/2022 echo and stress ok Lung CA s/p RUL lobectomy 2017 Anesthesia Pre-Procedure Meds Is the patient on any of the following meds?: Dulaglutide (Trulicity) (01/22/23 - Instructed to NOT take 01/29/23 dose by this provider) If Yes to any meds - educate patient: Pt education - increased risk of aspiration and Pt education - possibility of cancelled proc at provider's discretion PMFSH Active Problems Active Problems: All Active Problems (Updated 01/28/23 @ 15:05 by BREONNA Braxton) Left ankle pain (Acute) Left leg pain (Acute) Back pain (Acute) Right sided abdominal pain (Acute) Weakness of left upper extremity (Acute) Weakness of both lower extremities (Acute) Bilateral knee pain (Acute) Joint pain in fingers of both hands (Acute) Joint pain in both hands (Acute) Vitamin B12 deficiency (Acute) Diabetic gastroparesis (Acute) Nausea and vomiting (Acute) Myofascial muscle pain (Acute) Sacroiliac joint dysfunction of right side (Acute) Muscle pain, lumbar (Acute) Trapezius muscle strain (Acute) Polyarthralgia (Acute) Fibromyalgia (Acute) Chronic bronchitis (Acute) Lumbar radiculopathy (Acute) Osteoarthritis of right knee (Acute) Osteoarthritis of left knee (Acute) Pre-op examination (Acute) Skin discoloration (Acute) Vitamin D deficiency (Acute) Post-thoracotomy pain syndrome (Acute) [place] or callus (Acute) Primary osteoarthritis, left shoulder (Acute) Carcinoid tumor (Acute) Pulmonary nodules (Acute) Coronary artery disease (Acute) Type 2 diabetes mellitus with diabetic polyneuropathy (Acute) Type 2 diabetes mellitus with hyperglycemia, with long-term current use of insulin (Acute) Benign essential hypertension (Acute) Pure hypercholesterolemia (Acute) Obstructive sleep apnea (Acute) Asthma (Acute) Depression (Acute) Morbid obesity with BMI of 40.0-44.9, adult (Acute) Chronic idiopathic constipation (Acute) GERD (gastroesophageal reflux disease) (Acute) Allergic rhinitis (Acute) Lumbar degenerative disc disease (Acute) Past Medical History Medical History Weakness of left upper extremity Weakness of both lower extremities Joint pain in fingers of both hands Joint pain in both hands Bilateral knee pain Vitamin B12 deficiency Bilateral ankle pain Rash Right foot pain Medicare annual wellness visit, subsequent Cervical cancer screening Bronchopneumonia Chronic low back pain Bilateral foot pain Bilateral hip pain Annual physical exam Chest pain Stool incontinence Hyperlipidemia LDL goal <70 Bilateral hip pain Fibromyalgia Chronic bronchitis Vitamin D deficiency Post-thoracotomy pain syndrome COPD (chronic obstructive pulmonary disease) Depression Anxiety Type 2 diabetes mellitus with diabetic polyneuropathy Pulmonary nodules Allergic rhinitis GERD (gastroesophageal reflux disease) Morbid obesity with BMI of 40.0-44.9, adult Asthma Obstructive sleep apnea Lumbar degenerative disc disease Carcinoid tumor Coronary artery disease Benign essential hypertension Type 2 diabetes mellitus with hyperglycemia, with long-term current use of insulin Family History Family History Father Stroke Hypertension Diabetes Mother Diabetes Hypertension Other Arthritis Lupus Surgical History Surgical History History of colonoscopy (~12/2013) History of tubal ligation History of lung biopsy (~07/2016) History of esophagogastroduodenoscopy (EGD) (~10/2011) History of lobectomy of lung (~08/2016) History of rectal sphincterotomy (~11/2013) History of cardiac cath (~07/2018) Social History Social History Household Members: Spouse Housing: Apartment Alcohol intake: never Patient Tobacco Use Status: Former Tobacco user Tobacco use type: Cigarette e-Cigarette/Vaping Use: Never Used Second Hand Smoke Exposure: Yes Are you DNR?: No Advance Directives: No Advance Directives Information Provided: Yes Recently lost weight without trying: No Eating poorly because of decreased appetite: No Nutrition Risks: No Nutritional Risk Patient : No service: No Current occupational status: disabled Cognitive needs: No Hearing needs: No Vision needs: Yes Meds Allergies Allergy/AdvReac Type Severity Reaction Status Date / Time penicillin G Allergy Severe Itching Verified 01/28/23 14:49 latex Allergy Intermediate Unknown Verified 01/28/23 14:49 nitrofurantoin Allergy Intermediate itching Verified 01/28/23 14:49 and redness (in the legs) Home Medications Medication Instructions Recorded Confirmed Last Taken Type escitalopram oxalate 5 mg tablet 5 mg PO DAILY 01/22/22 01/28/23 Unknown History memantine 10 mg tablet 10 mg PO BID 01/22/22 01/28/23 Unknown History lorazepam 1 mg tablet mg PO 09/21/22 01/28/23 Unknown History sod picosulf 10 mg-magnes 3.5 160 ml PO DAILY 01/01/23 01/28/23 Unknown History gram-citric 12 gram/160 mL oral solution (Clenpiq) furosemide 20 mg tablet 20 mg PO DAILY 01/27/23 01/28/23 Unknown History Exam Pertinent Lab Results Pertinent Lab Results: Laboratory Tests 01/12/23 10:12 WBC 10.9 H Hgb 12.1 Hct 37.6 Plt Count 313 Sodium 141 Potassium 4.2 Chloride 102 Carbon Dioxide 27 BUN 13 Creatinine 0.78 Narrative Narrative: EKG 12/2022 Vent. Rate : 072 BPM Atrial Rate : 072 BPM P-R Int : 164 ms QRS Dur : 142 ms QT Int : 444 ms P-R-T Axes : 056 -17 096 degrees QTc Int : 486 ms Normal sinus rhythm Left bundle branch block Abnormal ECG No significant changes seen ECHO 11/2022 Overall LV sys function nml with EF 65-70% Nml diastolic function LA size nml RV systlolic function nml No evidence of aorta stenosis [id number] MR Mild pulmo htn Aortic root size nml No previous echo for comparison Nuc Stress 11/2022 1. EKG portion of test negative 2. Abnormal perfusion with small area of mild perfusion defect involving the anteroseptal segments c/w underlying LBBB. No reversible perfusion defect. 3. Nml wall thickening and wall motion. Nml LV function with resting LVEF of 49 and stress EF 55% 4. LV size is nml. No evidence of transient ischemic dilation. Abnormal septal motion. 5. No change from 2015 Assessment and Plan Assessment Anesthesia Assessment: Chart Reviewed Documented by User: Ynes Diallo MD 02/01/23 12:40 HPI - Anesthesia Eval Consult details Narrative: 67yo F for Upper Endoscopy and Colonoscopy 01/28/23 Seen at PCP for dizziness (intermit, chronic) and fall with LE pain. Xray negative. Follows [facility] Cardio. 11/2022 echo and stress ok Lung CA s/p RUL lobectomy 2016 10 days since she took trulicity PMFSH Past Medical History Medical History Weakness of left upper extremity Weakness of both lower extremities Joint pain in fingers of both hands Joint pain in both hands Bilateral knee pain Vitamin B12 deficiency Bilateral ankle pain Rash Right foot pain Medicare annual wellness visit, subsequent Cervical cancer screening Bronchopneumonia Chronic low back pain Bilateral foot pain Bilateral hip pain Annual physical exam Chest pain Stool incontinence Hyperlipidemia LDL goal <70 Bilateral hip pain Fibromyalgia Chronic bronchitis Vitamin D deficiency Post-thoracotomy pain syndrome COPD (chronic obstructive pulmonary disease) Depression Anxiety Type 2 diabetes mellitus with diabetic polyneuropathy Pulmonary nodules Allergic rhinitis GERD (gastroesophageal reflux disease) Morbid obesity with BMI of 40.0-44.9, adult Asthma Obstructive sleep apnea Lumbar degenerative disc disease Carcinoid tumor Coronary artery disease Benign essential hypertension Type 2 diabetes mellitus with hyperglycemia, with long-term current use of insulin Family History Family History Father Stroke Hypertension Diabetes Mother Diabetes Hypertension Other Arthritis Lupus Family history of problems with anesthesia: No Surgical History Surgical History History of colonoscopy (~12/2013) History of tubal ligation History of lung biopsy (~07/2016) History of esophagogastroduodenoscopy (EGD) (~10/2011) History of lobectomy of lung (~08/2016) History of rectal sphincterotomy (~11/2013) History of cardiac cath (~07/2018) History of Problems with Anesthesia: No Social History Social History Household Members: Spouse Housing: Apartment Alcohol intake: never Patient Tobacco Use Status: Former Tobacco user Tobacco use type: Cigarette e-Cigarette/Vaping Use: Never Used Second Hand Smoke Exposure: Yes Are you DNR?: No Advance Directives: No Advance Directives Information Provided: Yes Recently lost weight without trying: No Eating poorly because of decreased appetite: No Nutrition Risks: No Nutritional Risk Patient : No service: No Current occupational status: disabled Cognitive needs: No Hearing needs: No Vision needs: Yes Meds Allergies Allergy/AdvReac Type Severity Reaction Status Date / Time penicillin G Allergy Severe Itching Verified 01/28/23 14:49 latex Allergy Intermediate Unknown Verified 01/28/23 14:49 nitrofurantoin Allergy Intermediate itching Verified 01/28/23 14:49 and redness (in the legs) Home Medications Medication Instructions Recorded Confirmed Last Taken Type escitalopram oxalate 5 mg tablet 5 mg PO DAILY 01/22/22 01/28/23 Unknown History memantine 10 mg tablet 10 mg PO BID 01/22/22 01/28/23 Unknown History lorazepam 1 mg tablet mg PO 09/21/22 01/28/23 Unknown History sod picosulf 10 mg-magnes 3.5 160 ml PO DAILY 01/01/23 01/28/23 Unknown History gram-citric 12 gram/160 mL oral solution (Clenpiq) furosemide 20 mg tablet 20 mg PO DAILY 01/27/23 01/28/23 Unknown History Exam Airway Mallampati Class: II TM Dist: >3cm Neck ROM: Full Denture: Upper and Lower Heart: rrr Lungs: cta Assessment and Plan Final Anesthetic Review Family History of Problems with Anesthesia: No History of Problems with Anesthesia: No ASA Class: III Final Preanesthetic Review: No Changes in Pt Med Stat, Meds/Allgs Chart Reviewed, Consent Obtained/Reviewed and Anes Risks/Benef Reviewed Patient Risk: Intermediate Procedure Risk: Low Anesthetic Plan Anesthetic Plan: MAC: Disposition: Standard PACU
[2023-02-01 12:01] VITALS: BP 130/62; PULSE 65; RESP 18; TEMP 36.1; O2SAT 96; BMI 41.4
[2023-02-01 12:43] LABS: Glucose, Whole Blood 142 mg/dL (60-115)
--- NOTE | 2023-02-01 12:49 | P.HPSUR_ITS ---
Pre-Procedural Eval Section A Date of Service: 02/01/23 Section B Chief Complaint: colon screening and epigastric pain Details of Present Illness: family hx of CRC Relevant Family History (Specify if Yes): Yes Relevant Social History: None Present Medications: see Short Stay Collaborative assessment Medical History: Significant History (Weakness of left upper extremity Weakness of both lower extremities Joint pain in fingers of both hands Joint pain in both hands Bilateral knee pain Vitamin B12 deficiency Bilateral ankle pain Rash Right foot pain Medicare annual wellness visit, subsequent Cervical cancer screening Bronchopneumonia ) History of Previous Operations: Relevant previous surgery/procedure and date(s) (History of colonoscopy (~12/2013) History of tubal ligation History of lung biopsy (~07/2016) History of esophagogastroduodenoscopy (EGD) (~10/2011) History of lobectomy of lung (~08/2016) History of rectal sphincterotomy (~11/2013) Hi story of cardiac cath (~07/2018)) Allergies: Allergies Allergy/AdvReac Type Severity Reaction Status Date / Time penicillin G Allergy Severe Itching Verified 01/28/23 14:49 latex Allergy Intermediate Unknown Verified 01/28/23 14:49 nitrofurantoin Allergy Intermediate itching Verified 01/28/23 14:49 and redness (in the legs) Review of Systems Sugical H&P ROS: Negative: Constitution, Cardiovascular, Respiratory, Neurological, Psychiatric, Hem-Onc, Allergic/Immunologic, Gastrointestinal, Genitourinary, Musculoskeletal, Integumentary, Endocrine and Eyes/Ears/Nose/Throat Exam Surgical H&P Exam: Normal: HEENT, Normal: Heart, Normal: Lungs, Normal: Extremities, Normal: Abdomen, Normal: Skin and Normal: Neurological Plan Diagnosis/Plan: Unchanged I have reviewed the history and physical and performed a pertinent physical examination on my patient. No changes have occurred unless specified. Time Spent With Patient Time: Total time managing care of this patient today ____ minutes.
--- NOTE | 2023-02-01 13:22 | P.OP_ITS ---
Operative Note Operative Note Date of Service: 02/01/23 Narrative: Operative Information Procedure Description: EGD, Colonoscopy Indication: abdominal pain, colon screening Anesthesia: MAC FLEXIBLE TRANSORAL UPPER GASTROINTESTINAL ENDOSCOPY AND COLONOSCOPY PROCEDURE NOTE UPPER ENDOSCOPY Consent: Indications for the procedure and potential complications of bleeding, perforation, reaction to medications and missed diagnosis were discussed with the patient and informed consent was obtained. Instrument: Olympus GIF H 190 J mid size upper endoscope Monitoring: Vital signs and clinical assessment, continuous EKG monitoring, Pulse oximetry, Carbon Dioxide monitoring and blood pressure monitoring were done throughout the procedure. Procedure: The patient was placed in the left lateral decubitis position and pre-procedure medications were administered and a bite block was placed. The endoscope was inserted into the mouth and advanced under direct vision to the third part of duodenum. A careful inspection was made as the upper endoscope was withdrawn including a retroflexed examination of the proximal stomach; Findings and interventions are described below. Findings: Larynx:normal Esophagus: GE junction at 37 cm, diaphragm hiatus at 37 cm, normal mucosa Stomach: Patchy erythema and scarring. Biopsies were obtained. Grade 2 flap valve on retroflexed examination of the cardia. Duodenum: Normal bulb and descending duodenum, Intervention: Biopsies as noted above COLONOSCOPY Instrument: Olympus variable stiffness pediatric scope 190L Colonoscopy Monitoring: Vital signs and clinical assessment, continuous EKG monitoring, Pulse oximetry, Carbon Dioxide monitoring and blood pressure monitoring were done throughout the procedure. Colon withdrawal time was 28 minutes. Procedure: The patient was placed in the left lateral decubitis position and pre-procedure medications were administered. After a digital rectal examination of the ano-rectum, the video colonoscope was inserted into the rectum and advanced through the colon to the cecum/TI. The colonoscope was slowly withdrawn in a retrograde panoramic fashion and the colon mucosa was carefully examined including a retroflexed view of the rectum. Findings and interventions are described below. Procedure Difficulty:moderate, pressure applied on the RLQ Findings: Terminal Ileum-not intubated Cecum: x 2 sessile polyps, measuring 4-6 mm removed with cold snare Ascending Colon: x 3 sessile polyps measuring 4-6 mm, x 2 removed with cold snare and x 1 with cold forceps Transverse Colon -normal Descending Colon:normal Sigmoid Colon:midl diverticulosis Rectum: Retroflexion with small internal hemorrhoids, grade I Anorectum - normal Colon preparation: [place] Bowel Preparation Scale Right colon; 2 Transverse colon: 1-2 Left colon; 1-2 (0 = Unprepared colon segment with mucosa not seen due to solid stool that cannot be cleared. 1 = Portion of mucosa of the colon segment seen, but other areas of the colon segment not well seen due to staining, residual stool and/or opaque liquid. 2 = Minor amount of residual staining, small fragments of stool and/or opaque liquid, but mucosa of colon segment seen well. 3 = Entire mucosa of colon segment seen well with no residual staining, small fragments of stool or opaque liquid) Impression and Post Procedure Diagnosis: Endoscopy Findings: gastritis Colonoscopy Findings: polyps internal hemorrhoids diverticular disease Plan: Await Pathology results Repeat Colonoscopy in 1 year due to fair prep and polyps or earlier if clinically indicated High fiber diet leaflet avoid straining at stool, epsom salts and sitz bath, anusol supps or cream if h pylori pos then treat Above findings were reviewed with the patient and relevant handouts were provided if indicated.
[2023-02-01 14:18] VITALS: BP 126/68; PULSE 70; RESP 20; TEMP 36.4; O2SAT 99
[2023-02-01] MEDS: Acetaminophen 325 MG TABLET 650 MG PO (14:20)
[2023-02-01 14:33] VITALS: BP 136/67; PULSE 70; RESP 20; TEMP 36.8; O2SAT 98
== END 2023-02-01 15:01 | disposition home or self-care (01) ==
PROVIDERS: PCP Internal Medicine; Visit Provider Internal Medicine Gastroenterology
PROC: (CPT 43239; principal; 2023-02-01 14:00)
DX: K29.70 Gastritis, unspecified, without bleeding (principal); K31.89 Other diseases of stomach and duodenum; K21.9 Gastro-esophageal reflux disease without esophagitis; Z12.11 Encounter for screening for malignant neoplasm of colon; D12.0 Benign neoplasm of cecum; D12.2 Benign neoplasm of ascending colon; K57.30 Diverticulosis of large intestine without perforation or abscess without bleeding; K64.0 First degree hemorrhoids; R11.2 Nausea with vomiting, unspecified; K59.04 Chronic idiopathic constipation; E11.43 Type 2 diabetes mellitus with diabetic autonomic (poly)neuropathy; I10 Essential (primary) hypertension; E78.00 Pure hypercholesterolemia, unspecified; C7A.090 Malignant carcinoid tumor of the bronchus and lung; G47.33 Obstructive sleep apnea (adult) (pediatric); J45.909 Unspecified asthma, uncomplicated; I25.10 Atherosclerotic heart disease of native coronary artery without angina pectoris; E53.8 Deficiency of other specified B group vitamins; M79.7 Fibromyalgia; J42 Unspecified chronic bronchitis; E55.9 Vitamin D deficiency, unspecified; E66.9 Obesity, unspecified; Z68.41 Body mass index [BMI] 40.0-44.9, adult; Z87.891 Personal history of nicotine dependence; Z79.85 Long-term (current) use of injectable non-insulin antidiabetic drugs; Z79.899 Other long term (current) drug therapy
CPT/HCPCS: 43239; 45385; 45380; 82947; 88305; 88342; J2704

== ENCOUNTER → 2023-02-01 10:59 | Outpatient (BNV) | payer MEDICARE, MEDICAID, SELFPAY | PROVIDERS: PCP Internal Medicine; Visit Provider Internal Medicine Gastroenterology | DX: Z12.11 Encounter for screening for malignant neoplasm of colon (principal); D12.0 Benign neoplasm of cecum; D12.2 Benign neoplasm of ascending colon; K64.0 First degree hemorrhoids; K57.30 Diverticulosis of large intestine without perforation or abscess without bleeding | CPT/HCPCS: 45380; 45385 ==

== ENCOUNTER 2023-02-22 15:18 | Outpatient (REF) | payer MEDICARE, MEDICAID, SELFPAY ==
--- NOTE | ~2023-02-22 | XR_ITS ---
EXAMINATION: XR wrist RT min 3V, XR hand RT min 3V, XR forearm RT 2V CLINICAL INFORMATION: Reason for Exam M79.601 - Pain in right arm COMPARISON: None. TECHNIQUE: Three views of the hand, 4 views of the wrist, 2 views of the forearm FINDINGS: A dorsal osteophyte at the base of the third proximal phalanx is discontinuous with the base of the phalanx with sclerotic margins and may be chronically fractured. No acute fracture or dislocation. 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 No soft tissue abnormality. XR/XR forearm RT 2V IMPRESSION: 1. A dorsal osteophyte at the base of the third proximal phalanx is discontinuous with the base of the phalanx with sclerotic margins and may be chronically fractured. No acute fracture or dislocation. 2. 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
--- NOTE | ~2023-02-22 | XR_ITS ---
EXAMINATION: XR LUMBOSACRAL SPINE CLINICAL INFORMATION: Reason for Exam M51.36 - Other intervertebral disc degeneration, lumbar region COMPARISON: Lumbar spine radiographs 01/27/2023 TECHNIQUE: 5 views of the lumbar spine FINDINGS: 5 nonrib-bearing lumbar-type vertebral bodies. Vertebral body heights are maintained. Grade 1 anterolisthesis of L4 on L5. No pars defects. Moderate multilevel degenerative disc disease with loss of disc space height and facet arthropathy similar to prior. Atherosclerotic calcifications of the abdominal aorta. XR/XR lumbar spine 4V min IMPRESSION: 1. Moderate multilevel degenerative disc disease with loss of disc space height and facet arthropathy similar to prior. 2. Grade 1 anterolisthesis of L4 on L5.
--- NOTE | ~2023-02-22 | XR_ITS ---
EXAMINATION: XR wrist RT min 3V, XR hand RT min 3V, XR forearm RT 2V CLINICAL INFORMATION: Reason for Exam M79.601 - Pain in right arm COMPARISON: None. TECHNIQUE: Three views of the hand, 4 views of the wrist, 2 views of the forearm FINDINGS: A dorsal osteophyte at the base of the third proximal phalanx is discontinuous with the base of the phalanx with sclerotic margins and may be chronically fractured. No acute fracture or dislocation. 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 No soft tissue abnormality. XR/XR wrist RT min 3V IMPRESSION: 1. A dorsal osteophyte at the base of the third proximal phalanx is discontinuous with the base of the phalanx with sclerotic margins and may be chronically fractured. No acute fracture or dislocation. 2. 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
--- NOTE | ~2023-02-22 | XR_ITS ---
EXAMINATION: XR wrist RT min 3V, XR hand RT min 3V, XR forearm RT 2V CLINICAL INFORMATION: Reason for Exam M79.601 - Pain in right arm COMPARISON: None. TECHNIQUE: Three views of the hand, 4 views of the wrist, 2 views of the forearm FINDINGS: A dorsal osteophyte at the base of the third proximal phalanx is discontinuous with the base of the phalanx with sclerotic margins and may be chronically fractured. No acute fracture or dislocation. 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 No soft tissue abnormality. XR/XR hand RT min 3V IMPRESSION: 1. A dorsal osteophyte at the base of the third proximal phalanx is discontinuous with the base of the phalanx with sclerotic margins and may be chronically fractured. No acute fracture or dislocation. 2. 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
== END 2023-02-22 15:19 | disposition home or self-care (01) ==
LOC: HO.XRAY 15:18
PROVIDERS: PCP Internal Medicine; Visit Provider Internal Medicine
DX: M79.601 Pain in right arm (principal); M51.36 Other intervertebral disc degeneration, lumbar region; Z91.81 History of falling
CPT/HCPCS: 72110; 73090; 73110; 73130

== ENCOUNTER 2023-02-24 10:10 | Outpatient (AMB) | payer MEDICARE, MEDICAID, SELFPAY ==
--- NOTE | 2023-02-24 10:17 | MHC.OFFVIS ---
Intake Vital Signs 02/24/23 10:21 Height 5 ft 3 in Weight 230 lb 2.601 oz BMI 40.8 BP 115/71 Blood Pressure Location Rt brachial Position Sitting Pulse 82 Intake Visit Reasons: S/p EGD and Colonoscopy Intake Note: Radha presents in office today in postoperative follow up s/p EGD/colonoscopy. CC: Radha underwent EGD and colonoscopy with Dr. Palacio on 02/01/23. Patient reports doing well today but she is confused about dyciclomine instructions. 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 Allergies penicillin G Allergy (Severe, Verified 02/24/23 10:23) Itching latex Allergy (Intermediate, Verified 02/24/23 10:23) Unknown nitrofurantoin Allergy (Intermediate, Verified 02/24/23 10:23) itching and redness (in the legs) HPI S/p EGD and Colonoscopy HPI Details Assessment & Plan (1) Diabetic gastroparesis: Code(s): E11.43 - Type 2 diabetes mellitus with diabetic autonomic (poly)neuropathy; K31.84 - Gastroparesis (2) Nausea and vomiting: Code(s): R11.2 - Nausea with vomiting, unspecified (3) GERD (gastroesophageal reflux disease): Code(s): K21.9 - Gastro-esophageal reflux disease without esophagitis Qualifiers: Esophagitis presence: without esophagitis Qualified Code(s): K21.9 - Gastro-esophageal reflux disease without esophagitis (4) Right sided abdominal pain: Code(s): R10.9 - Unspecified abdominal pain (5) Back pain: Code(s): M54.9 - Dorsalgia, unspecified Orders: Orders XR lumbar spine 2- 3V Today M54.9 - Dorsalgia, unspecified, R10. 9 - Unspecified ab dominal pain XR thoracic spine 2V Today M54.9 - Dorsalgia, unspecified, R10. 9 - Unspecified ab dominal pain Medications: New metoclopramide HCl (Reglan) 10 mg PO QIDACHS 1 20 tabs 6RF E11.43 - Type 2 di abetes mellitus wi th diabetic autono [place] (poly)neuropat hy, K31.84 - Gastr oparesis, R11.2 - Nausea with vomiti ng, unspecified dicyclomine take 2 tabs qhs an d 1 tab tid prn or ally 4 times a day ; 180 tabs 1RF 30 days R10.9 - Unspecifie d abdominal pain On Hold metoclopramide HCl (Reglan) Hold Comment: Doctor's Order 5 mg PO QIDACHS 1 20 tabs 6RF BRUNEIAN #Ambreen Acuña Her dtr is with her and is supportive. She received the reglan 5mg and it helped her about 80 % and she is eating better. She is having no a/e. These were reviewed. She is moving her bowels well every day. She has a new complaint of pain on the right side of her body that is worst in the RLQ and it feels swollen. It wakes her up at night and she has to walk until it goes away. Her feel also will tingle. The pain is like I have a chile there and it moves down and I feel a twisting. She has not heard re: colonoscopy another reminder sent to fine unhairer. Will trial bentyl 2 tabs qhs adn 1 tid prn and get XR thoracic and lumbar ROV 4 weeks. X-RAY OF THE LUMBAR THORACIC SPINES 01/29/23 FINDINGS: Bone alignment is normal. No fracture or dislocation. Multilevel degenerative spondylosis and degenerative disc disease of the mid and lower thoracic spine. Paraspinal soft tissues are normal. XR/XR thoracic spine 2V IMPRESSION: Degenerative changes. FINDINGS: There is minimal 2 to 3 mm anterior subluxation of L4 with respect L5. Bone alignment is otherwise normal. No fracture or dislocation. Disc space narrowing at L1-L2, L3-L4, L4-L5 and L5-S1. Mild degenerative spondylosis at L1-L2 and lower thoracic spine. Atherosclerotic disease. XR/XR lumbar spine 2-3V IMPRESSION: Degenerative changes. CORRESPONDENCE The On 12/30/22 @ 16:46 Sy López Wrote To Yesika Beck Called PT and notified per message below. She stated that she is right now at the ER here at [facility]. On 12/30/22 @ 15:12 Yesika Beck Wrote To Sy López Sorry, I really need to see her 1st since this is a new development before I will know what I want to order. On 12/30/22 @ 13:55 Sy López Wrote To Beck PT called stating that she has an appt scheduled for Wednesday01/01/23 for nausea, sweats, and upset stomach for 5 days. She is requesting to have imaging orders or labs to have done before her appt. Please advise. EGD/COLONOSCOPY Findings: Larynx:normal Esophagus: GE junction at 37 cm, diaphragm hiatus at 37 cm, normal mucosa Stomach: Patchy erythema and scarring. Biopsies were obtained. Grade 2 flap valve on retroflexed examination of the cardia. Duodenum: Normal bulb and descending duodenum, Intervention: Biopsies as noted above indings: Terminal Ileum-not intubated Cecum: x 2 sessile polyps, measuring 4-6 mm removed with cold snare Ascending Colon: x 3 sessile polyps measuring 4-6 mm, x 2 removed with cold snare and x 1 with cold forceps Transverse Colon -normal Descending Colon:normal Sigmoid Colon:midl diverticulosis Rectum: Retroflexion with small internal hemorrhoids, grade I Anorectum - normal Impression and Post Procedure Diagnosis: Endoscopy Findings: gastritis Colonoscopy Findings: polyps internal hemorrhoids diverticular disease Plan: Await Pathology results Repeat Colonoscopy in 1 year due to fair prep and polyps or earlier if clinically indicated High fiber diet leaflet avoid straining at stool, epsom salts and sitz bath, anusol supps or cream if h pylori pos then treat A. Stomach, biopsy: Gastric antral mucosa with minimal chronic inactive inflammation; negative for H pylori, intestinal metaplasia and dysplasia. B. Colon, cecum/ascending, polyps: Tubular adenomas (3 pieces); negative for high-grade dysplasia and carcinoma TODAY'S VISIT BRUNEIAN #Darcie Her right-sided abdominal pain is somewhat less after her colonoscopy she thinks this may be because she ?cleaned out. ? However it does continue. We reviewed the x-rays which does show significant disease and spondylosis of both the thoracic and lumbar spines. I used a diagram to explain radicular pain to her and how I am trying to figure out if her pain is caused by bowel spasm or by a pinched nerve in thoracic spine. She has not yet tried the dicyclomine could she was confused about the dosing which we reviewed today. I explained that this is a test to try to tease out where the pain is coming from. She also complains of pain that radiates down her legs accompanied by cramping especially at night. She was supposed to be referred to physical therapy by both her signal operator linguist and her primary but they never called her. I checked the referral the computer and it did not specify a provider so likely it was stuck in . I changed to our provider in [place] and hopefully she will be able to contact them as I gave her the phone number. He continues on her Linzess in her Dexilant and the seem to be controlling her constipation and her GERD well. At this point I encouraged her to try the dicyclomine and I will see her back in 8 weeks. She is agreeable to this plan. [facility] Medical History Weakness of left upper extremity Weakness of both lower extremities Joint pain in fingers of both hands Joint pain in both hands Bilateral knee pain Vitamin B12 deficiency Bilateral ankle pain Rash Right foot pain Medicare annual wellness visit, subsequent Cervical cancer screening Bronchopneumonia Chronic low back pain Bilateral foot pain Bilateral hip pain Annual physical exam Chest pain Stool incontinence Hyperlipidemia LDL goal <70 Bilateral hip pain Fibromyalgia Chronic bronchitis Vitamin D deficiency Post-thoracotomy pain syndrome COPD (chronic obstructive pulmonary disease) Depression Anxiety Type 2 diabetes mellitus with diabetic polyneuropathy Pulmonary nodules Allergic rhinitis GERD (gastroesophageal reflux disease) Morbid obesity with BMI of 40.0-44.9, adult Asthma Obstructive sleep apnea Lumbar degenerative disc disease Carcinoid tumor Coronary artery disease Benign essential hypertension Type 2 diabetes mellitus with hyperglycemia, with long-term current use of insulin Surgical History History of colonoscopy (~12/2013) History of tubal ligation History of lung biopsy (~07/2016) History of esophagogastroduodenoscopy (EGD) (~10/2011) History of lobectomy of lung (~08/2016) History of rectal sphincterotomy (~11/2013) History of cardiac cath (~07/2018) Family History Father Stroke Hypertension Diabetes Mother Diabetes Hypertension Other Arthritis Lupus Social History Household Members: Spouse Housing: Apartment Alcohol intake: never Patient Tobacco Use Status: Former Tobacco user Tobacco use type: Cigarette e-Cigarette/Vaping Use: Never Used Second Hand Smoke Exposure: Yes service: No Current occupational status: disabled Cognitive needs: No Hearing needs: No Vision needs: Yes Review of Systems Const Denies fatigue, Denies fever(s), Denies night sweats, Denies poor appetite and Denies weight loss ENT Reports Normal hearing present, Denies dental pain, Denies dysphagia, Denies hearing loss, Denies mouth pain, Denies odynophagia, Denies throat swelling, Denies tongue swelling and Reports other (Dentition adequate) Card Reports no additional complaints Resp Reports no additional complaints GI Reports abdominal pain, Denies melena, Denies bloating, Denies hematochezia, Reports constipation, Denies GI cramping, Denies dysphagia, Denies excessive flatus, Denies early satiety, Reports heartburn, Denies diarrhea, Denies nausea, Denies odynophagia, Denies vomiting and Denies hematemesis Musc Reports back pain, Reports myalgias, Reports muscle cramps, Reports radiating pain into limb and Reports stiffness Skin/Breast Denies pruritus, Denies lesions, Denies rash and Denies jaundice Neuro Reports Normal hearing present, Denies Abnormal speech present and Reports paresthesias Endo Denies fatigue Aller/Immun Denies throat swelling and Denies tongue swelling Physical Exam Vital Signs: Last Vital Signs Pulse 82 02/24/23 10:21 BP 115/71 02/24/23 10:21 BMI result Body Mass Index 40.8 Const General: cooperative, no acute distress, well developed and well groomed Nutritional Appearance: well nourished and obese Orientation/consciousness: oriented to person, oriented to place and oriented to time Limitations: language barrier and ambulation with cane HEENT Head: Yes normocephalic and Yes atraumatic Eyes General: appearance normal, both eyes and all related structures Pupils: Equal, round and reactive pupils present Neck Neck: Yes normal visual inspection and Yes no lymphadenopathy Thyroid: Thyroid normal Resp Effort & Inspection: normal respiratory effort and able to speak in complete sentences Auscultation: clear to auscultation bilaterally Cardio Rate: regular rate Rhythm: regular rhythm Heart sounds: Normal, physiologic split S2 sound present Peripheral pulses: radial pulses present and posterior tibial pulses present GI Inspection: No distended, Yes Abdominal panniculus present and Yes obesity Palpation (GI): Soft to palpation, nontender, no guarding, not rigid and No hepatosplenomegaly present Percussion: Yes normal to percussion Auscultation: normal bowel sounds Rectal Exam - Female: deferred Skin General skin exam: no rashes or lesions noted, turgor normal, skin not dry, no jaundice, No spider nevi and no striae Rashes: no rashes Nails: normal Neuro General: oriented to person, oriented to place and oriented to time Cranial nerves: Yes Equal, round and reactive pupils present and Yes Normal hearing present Speech: No Abnormal speech present Extrem General: Yes normal to inspection, No clubbing, No cyanosis and No edema Psych Appearance: grossly normal and well kempt Mental Status: mental status grossly normal Speech and movement: Normal speech and movement present Affect: normal affect Attitude: cooperative Thought process: Normal thought process present and not confabulating Thought content: Normal thought content present Insight: Limited insight present (Psych) Judgement: Limited judgement present (Psych) Results Reviewed Results Reviewed: X-RAY OF THE LUMBAR THORACIC SPINES 01/29/23 FINDINGS: Bone alignment is normal. No fracture or dislocation. Multilevel degenerative spondylosis and degenerative disc disease of the mid and lower thoracic spine. Paraspinal soft tissues are normal. XR/XR thoracic spine 2V IMPRESSION: Degenerative changes. FINDINGS: There is minimal 2 to 3 mm anterior subluxation of L4 with respect L5. Bone alignment is otherwise normal. No fracture or dislocation. Disc space narrowing at L1-L2, L3-L4, L4-L5 and L5-S1. Mild degenerative spondylosis at L1-L2 and lower thoracic spine. Atherosclerotic disease. XR/XR lumbar spine 2-3V IMPRESSION: Degenerative changes. CORRESPONDENCE The On 12/30/22 @ 16:46 Sy López Wrote To Beck Called PT and notified per message below. She stated that she is right now at the ER here at [facility]. On 12/30/22 @ 15:12 KiranYesika Wrote To Sy López Sorry, I really need to see her 1st since this is a new development before I will know what I want to order. On 12/30/22 @ 13:55 Sy López Wrote To Beck PT called stating that she has an appt scheduled for Wednesday01/01/23 for nausea, sweats, and upset stomach for 5 days. She is requesting to have imaging orders or labs to have done before her appt. Please advise. EGD/COLONOSCOPY Findings: Larynx:normal Esophagus: GE junction at 37 cm, diaphragm hiatus at 37 cm, normal mucosa Stomach: Patchy erythema and scarring. Biopsies were obtained. Grade 2 flap valve on retroflexed examination of the cardia. Duodenum: Normal bulb and descending duodenum, Intervention: Biopsies as noted above indings: Terminal Ileum-not intubated Cecum: x 2 sessile polyps, measuring 4-6 mm removed with cold snare Ascending Colon: x 3 sessile polyps measuring 4-6 mm, x 2 removed with cold snare and x 1 with cold forceps Transverse Colon -normal Descending Colon:normal Sigmoid Colon:midl diverticulosis Rectum: Retroflexion with small internal hemorrhoids, grade I Anorectum - normal Impression and Post Procedure Diagnosis: Endoscopy Findings: gastritis Colonoscopy Findings: polyps internal hemorrhoids diverticular disease Plan: Await Pathology results Repeat Colonoscopy in 1 year due to fair prep and polyps or earlier if clinically indicated High fiber diet leaflet avoid straining at stool, epsom salts and sitz bath, anusol supps or cream if h pylori pos then treat A. Stomach, biopsy: Gastric antral mucosa with minimal chronic inactive inflammation; negative for H pylori, intestinal metaplasia and dysplasia. B. Colon, cecum/ascending, polyps: Tubular adenomas (3 pieces); negative for high-grade dysplasia and carcinoma Assessment & Plan Assessment & Plan (1) Diabetic gastroparesis: Code(s): E11.43 - Type 2 diabetes mellitus with diabetic autonomic (poly)neuropathy; K31.84 - Gastroparesis (2) GERD (gastroesophageal reflux disease): Code(s): K21.9 - Gastro-esophageal reflux disease without esophagitis Qualifiers: Esophagitis presence: without esophagitis Qualified Code(s): K21.9 - Gastro-esophageal reflux disease without esophagitis (3) Chronic idiopathic constipation: Code(s): K59.04 - Chronic idiopathic constipation (4) Right sided abdominal pain: Code(s): R10.9 - Unspecified abdominal pain Plan BRUNEIAN #Darcie Her right-sided abdominal pain is somewhat less after her colonoscopy she thinks this may be because she ?cleaned out. ? However it does continue. We reviewed the x-rays which does show significant disease and spondylosis of both the thoracic and lumbar spines. I used a diagram to explain radicular pain to her and how I am trying to figure out if her pain is caused by bowel spasm or by a pinched nerve in thoracic spine. She has not yet tried the dicyclomine could she was confused about the dosing which we reviewed today. I explained that this is a test to try to tease out where the pain is coming from. She also complains of pain that radiates down her legs accompanied by cramping especially at night. She was supposed to be referred to physical therapy by both her signal operator linguist and her primary but they never called her. I checked the referral the computer and it did not specify a provider so likely it was stuck in . I changed to our provider in [place] and hopefully she will be able to contact them as I gave her the phone number. He continues on her Linzess in her Dexilant and the seem to be controlling her constipation and her GERD well. At this point I encouraged her to try the dicyclomine and I will see her back in 8 weeks. She is agreeable to this plan. Orders: Referrals Physical Medicine and Rehabilitation Referral M25.511 - Pain in right shoulder Medications: Discontinued pantoprazole (Protonix) Discontinued Reason: Insurance Denied 40 mg PO DAILY 20 tabs 0RF Coding Level of Care Code Est Pt Level 4 (61822) Diagnoses Diabetic gastroparesis E11.43; K31.84 Gastroesophageal reflux disease without esophagitis K21.9 Esophagitis presence: without esophagitis Chronic idiopathic constipation K59.04 Right sided abdominal pain R10.9 Time Spent (min) 33 Comment Twenty-eight [id number] 5 chart
[2023-02-24 10:21] VITALS: BP 115/71; PULSE 82; BMI 40.8
== END 2023-02-24 11:04 | disposition home or self-care (01) ==
PROVIDERS: PCP Internal Medicine; Visit Provider Nurse Practitioner
DX: E11.43 Type 2 diabetes mellitus with diabetic autonomic (poly)neuropathy (principal); K31.84 Gastroparesis; K21.9 Gastro-esophageal reflux disease without esophagitis; K59.04 Chronic idiopathic constipation; R10.9 Unspecified abdominal pain
CPT/HCPCS: 99214

== ENCOUNTER → 2023-02-24 10:10 | Outpatient (BNVA) | payer MEDICARE, MEDICAID, SELFPAY | PROVIDERS: PCP Internal Medicine; Visit Provider Nurse Practitioner | DX: E11.43 Type 2 diabetes mellitus with diabetic autonomic (poly)neuropathy (principal); K31.84 Gastroparesis; K21.9 Gastro-esophageal reflux disease without esophagitis; K59.04 Chronic idiopathic constipation; R10.9 Unspecified abdominal pain | CPT/HCPCS: 99212 ==

== ENCOUNTER 2023-03-25 13:03 | Outpatient (AMB) | payer MEDICARE, MEDICAID, SELFPAY ==
--- NOTE | 2023-03-25 13:13 | A.OFFVIS_ITS ---
Intake Vital Signs 03/25/23 13:14 Height 5 ft 3 in Weight 234 lb 12.677 oz BMI 41.6 Pulse 68 Pulse Source Pulse Oximeter Pulse Oximetry (%) 98 Oxygen Delivery Method Room Air Intake Visit Reasons: copd Operator Cavity Pump Required: No Allergies penicillin G Allergy (Severe, Verified 03/25/23 13:15) Itching latex Allergy (Intermediate, Verified 03/25/23 13:15) Unknown nitrofurantoin Allergy (Intermediate, Verified 03/25/23 13:15) itching and redness (in the legs) HPI HPI Comments History of Present Illness Details The patient is a 67-year-old woman known carcinoid tumor status post resection. The patient also has a history of asthma and obstructive sleep apnea. She has been using the new respironic dream station. She is using more than 4 hours a night. However, she has not gotten any supplies. I did call her [employer] and sent they will facilitate some supplies. In the meantime I did provide her mask F30 that she can try. Her asthma appears to be stable with the current respiratory medications. She has not had to use her rescue inhaler and she has not to use prednisone. She has been complaining of some discomfort over the right flank area. . 03/20/2022 the patient is here for a pulmonary follow-up visit. The patient continues to complain of significant daytime drowsiness. She has not been able to use her CPAP in no longer getting supplies. Her CPAP was recalled and she has not been able to get a replacement. The patient is very concerned because she is getting worsening daytime drowsiness and headaches in the morning. Her Taloga score is elevated at 14 over 24. at this time the patient needs to get a repeat sleep study to get reestablished with the [employer] in order to get a new CPAP. in the meantime the patient is concerned about her pulmonary nodules. I did reassure her that they have not changed. She does carry history of carcinoid. The patient does not have any evidence of any recurrence at this time. She has a scheduled CT scan for September 2022. She continues use her inhalers. Although there is a discrepancy at the pharmacy with Spiriva and Stiolto. I will make sure to clarify that at the pharmacy. She is is using the Flovent and she will continue to use the Stiolto at this time. The patient will need a sleep study will follow-up in a couple months. 06/05/2022 the patient is here for pulmonary follow-up visit. She continues to have significant daytime drowsiness. Her Taloga score still very elevated 12/2 4. She is struggling without her CPAP. She was diagnosed with sleep apnea in the past and had been responding well to CPAP. Her last home sleep study did not demonstrate a evidence of any sleep apnea. Although, the patient states that she had a hard time with it and she could barely sleep with as she was concerned about all the connections. Therefore, in view of her history of sleep apnea and ongoing daytime drowsiness will get a in-lab sleep study to get more accurate information. The patient is requesting to put a [facility]. Will go ahead and order it for her as I do believe that she also has sleep apnea not being identified in the limited home sleep study. From a carcinoid standpoint she has been doing well. Last CT scan was reassuring no evidence of any recurrence. She is up for a CAT scan sometime in the summer of 2022 which is a year follow-up. She has small pulmonary nodules that may indeed be tumor lytes. They have not changed which is reassuring. She continues use her respiratory medicines with good effect. Has not had to use any prednisone. She did start the biologic injections in seem to be helping her mitigate her symptoms and minimize the use of prednisone. 09/21/2022 this is a telehealth visit. T he patient has been having worsening asthma symptoms. Complaining of cough chest congestion and chest tightness and wheezing. Moderate severity. Has been sick now for about 4-5 days. Denies any fevers or chills. She is running out of her medications. I will make sure to send her bronchodilator therapy to the pharmacy. She continues use her maintenance medications as prescribed. In addition to this the patient is concerned because she is having right-sided chest discomfort. She is concerned about a history of carcinoid tumor. She does have a CT scan scheduled for sometime in mid to late October of this year. Will go ahead and requested a little bit sooner. The patient could not make it to her appointment today. If however her symptoms are no better she needs to reschedule and come in to be evaluated. Also to note the patient continues to have daytime drowsiness with an elevated Taloga score of 11/24. She already had a home sleep study in April 2022 demonstrating no evidence of sleep apnea, and then had a an in-lab PSG at [facility] in August 2022 also demonstrating no evidence of sleep apnea. Therefore the patient will continue with positional therapy and no need for Pap therapy at this time. 03/25/2023 the patient is here for pulmon mio follow-up visit. Overall she is doing better. She did complain the prednisone and the antibiotics during the last visit. Her chest discomfort is better. We did discuss and review the images from her last CT scan back in September 2022 with stable postoperative changes stable pulmonary nodules. She is due for repeat CT scan in September 2023. she continues use respiratory therapy with good effect. Her sleeping is overall better. again, her sleep study did not demonstrate any sleep apnea. She is using the Stiolto in the Flovent. These inhalers have been effective. Her respiratory exam is reassuring. The patient continues to do well will consider minimizing the inhaled steroid component. FORMERLY [facility], [facility]–1983 Medical History Weakness of left upper extremity Weakness of both lower extremities Joint pain in fingers of both hands Joint pain in both hands Bilateral knee pain Vitamin B12 deficiency Bilateral ankle pain Rash Right foot pain Medicare annual wellness visit, subsequent Cervical cancer screening Bronchopneumonia Chronic low back pain Bilateral foot pain Bilateral hip pain Annual physical exam Chest pain Stool incontinence Hyperlipidemia LDL goal <70 Bilateral hip pain Fibromyalgia Chronic bronchitis Vitamin D deficiency Post-thoracotomy pain syndrome COPD (chronic obstructive pulmonary disease) Depression Anxiety Type 2 diabetes mellitus with diabetic polyneuropathy Pulmonary nodules Allergic rhinitis GERD (gastroesophageal reflux disease) Morbid obesity with BMI of 40.0-44.9, adult Asthma Obstructive sleep apnea Lumbar degenerative disc disease Carcinoid tumor Coronary artery disease Benign essential hypertension Type 2 diabetes mellitus with hyperglycemia, with long-term current use of insulin Surgical History History of colonoscopy (~12/2013) History of tubal ligation History of lung biopsy (~07/2016) History of esophagogastroduodenoscopy (EGD) (~10/2011) History of lobectomy of lung (~08/2016) History of rectal sphincterotomy (~11/2013) History of cardiac cath (~07/2018) Family History Father Stroke Hypertension Diabetes Mother Diabetes Hypertension Other Arthritis Lupus Social History Household Members: Spouse Housing: Apartment Alcohol intake: never Patient Tobacco Use Status: Former Tobacco user Tobacco use type: Cigarette e-Cigarette/Vaping Use: Never Used Second Hand Smoke Exposure: Yes service: No Current occupational status: disabled Cognitive needs: No Hearing needs: No Vision needs: Yes Review of Systems Const Reports difficulty sleeping, Denies fatigue, Denies fever(s), Denies night sweats, Denies poor appetite, Reports snoring and Denies weight loss ENT Reports Normal hearing present, Denies dental pain, Denies dysphagia, Denies hearing loss, Denies mouth pain, Denies odynophagia, Denies throat swelling, Denies tongue swelling and Reports other (Dentition adequate) Card Reports chest pain and Reports dyspnea on exertion Resp Reports chest congestion, Reports cough, Reports dyspnea on exertion, Reports snoring and Reports wheezing GI Denies abdominal pain, Denies melena, Reports bloating, Denies hematochezia, Denies constipation, Denies GI cramping, Denies dysphagia, Denies excessive flatus, Denies early satiety, Reports heartburn, Denies nausea, Denies odynophagia, Denies vomiting and Denies hematemesis Musc Reports no additional complaints and Reports myalgias Skin/Breast Denies pruritus, Denies lesions, Denies rash and Denies jaundice Neuro Reports Normal hearing present and Denies Abnormal speech present Endo Denies fatigue Aller/Immun Denies throat swelling, Denies tongue swelling and Reports wheezing Physical Exam Vital Signs: Last Vital Signs Pulse 68 03/25/23 13:14 Pulse Ox 98 03/25/23 13:14 Oxygen Delivery Method Room Air 03/25/23 13:14 BMI result Body Mass Index 41.6 Const General: alert Neck Neck: Yes normal visual inspection, Yes full ROM and Yes no lymphadenopathy Chest Chest palpation & inspection: normal inspection of the chest Resp Effort & Inspection: normal respiratory effort Auscultation: diminished lung sounds Cardio Rate: regular rate Rhythm: regular rhythm Heart sounds: S1 normal heart sound present and S2 normal heart sound present GI Palpation (GI): Soft to palpation and nontender Auscultation: normal bowel sounds Skin General skin exam: rashes and/or lesions noted Neuro Cranial nerves: Yes Normal hearing present Speech: No Abnormal speech present Extrem General: Yes no clubbing, cyanosis or edema Assessment & Plan Assessment & Plan (1) Asthma: Code(s): J45.909 - Unspecified asthma, uncomplicated Qualifiers: Asthma complication type: with acute exacerbation Asthma persistence: persistent Asthma severity: moderate Qualified Code(s): J45.41 - Moderate persistent asthma with (acute) exacerbation (2) Carcinoid tumor: Comment: (S/P RUL lobectomy at [facility] [place] - 08/2016) Code(s): D3A.00 - Benign carcinoid tumor of unspecified site Qualifiers: Carcinoid tumor location: lung Carcinoid tumor malignancy status: malignant Qualified Code(s): C7A.090 - Malignant carcinoid tumor of the bronchus and lung (3) Post-thoracotomy pain syndrome: Code(s): G89.12 - Acute post-thoracotomy pain (4) Pulmonary nodules: Comment: Likely tumorlets Code(s): R91.8 - Other nonspecific abnormal finding of lung field (5) Obstructive sleep apnea: Comment: no evidence of ILDEFONSO on recent inlab PSG Code(s): G47.33 - Obstructive sleep apnea (adult) (pediatric) Plan continue Flovent continue Stiolto daily SANGITA as needed nebulizer as needed Claritin continue Singulair Repeat CT chest 09/2023 F/U 6-[address] months Orders: Orders [address] chest wo IV con 6 Months R91.8 - Other nonspecific abnormal finding of lung field Coding Level of Care Code Tele New Pt Level 4 (18195) Diagnoses Moderate persistent asthma with acute exacerbation J45.41 Asthma complication type: with acute exacerbation Asthma persistence: persistent Asthma severity: moderate 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 Carcinoid tumor location: lung Carcinoid tumor malignancy status: malignant 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
[2023-03-25 13:14] VITALS: PULSE 68; O2SAT 98; BMI 41.6
== END 2023-03-25 13:34 | disposition home or self-care (01) ==
PROVIDERS: PCP Internal Medicine; Visit Provider Hospitalist
DX: J45.41 Moderate persistent asthma with (acute) exacerbation (principal); C7A.090 Malignant carcinoid tumor of the bronchus and lung; G89.12 Acute post-thoracotomy pain; G47.33 Obstructive sleep apnea (adult) (pediatric)
CPT/HCPCS: 99213

== ENCOUNTER → 2023-03-25 13:03 | Outpatient (BNVA) | payer MEDICARE, MEDICAID, SELFPAY | PROVIDERS: PCP Internal Medicine; Visit Provider Hospitalist | DX: J45.41 Moderate persistent asthma with (acute) exacerbation (principal); R91.8 Other nonspecific abnormal finding of lung field; C7A.090 Malignant carcinoid tumor of the bronchus and lung; G89.12 Acute post-thoracotomy pain | CPT/HCPCS: 99212 ==

== ENCOUNTER 2023-04-05 10:00 | Outpatient (REF) | payer MEDICARE, MEDICAID, SELFPAY ==
[2023-04-05 10:28] LABS: MANUAL DIFF FLAG NO
[2023-04-05 11:09] LABS: Basophils Absolute Auto 0.1 X10*3/uL (0.0-0.2); Basophils Percent Auto 0.6 % (0-2); Eosinophils Absolute Auto 0.4 X10*3/uL (0.0-0.4); Eosinophils Percent Auto 3.5 % (0-4); Hematocrit 40.1 % (37.0-47.0); Hemoglobin 12.5 g/dl (12.0-16.0); Imm Gran Abs Auto 0.08 X10*3/uL (0.00-0.03); Imm Gran Pct Auto 0.7 % (0.0-0.4); Lymphocytes Absolute Auto 4.4 X10*3/uL (1.2-4.9); Lymphocytes Percent Auto 40.5 % (20-40); Mean Corpuscular HGB Conc 31.2 g/dl (31.0-35.0); Mean Corpuscular Hemoglobin 26.9 pg (27.0-33.0); Mean Corpuscular Volume 86.2 fL (80.0-98.0); Mean Platelet Volume 10.5 fL (9.4-12.3); Monocytes Absolute Auto 0.7 X10*3/uL (0.1-1.2); Monocytes Percent Auto 6.5 % (2-11); Neutrophils Absolute Auto 5.2 x10*3/uL (2.0-8.3); Neutrophils Percent Auto 48.2 % (45-73); Platelet Count 387 X10*3/uL (160-400); Red Blood Count 4.65 X10*6/uL (4.20-5.50); Red Cell Distribution Width 14.1 % (11.0-16.0); White Blood Count 10.9 X10*3/uL (4.8-10.8)
[2023-04-05 11:27] LABS: Estimated Average Glucose 169 mg/dL; Hemoglobin A1c % 7.5 % (<6.0)
[2023-04-05 12:02] LABS: Alanine Aminotransferase 18 U/L (0-31); Albumin Level 3.9 g/dL (3.5-5.0); Alkaline Phosphatase 142 U/L (39-117); Anion Gap 12 (12-20); Aspartate Amino Transferase 34 U/L (5-31); Bilirubin Total 0.6 mg/dL (0.0-1.0); Blood Urea Nitrogen 17 mg/dL (9-16); Carbon Dioxide 29 mmol/L (22-29); Chloride 101 mmol/L (96-108); Cholesterol 143 mg/dL (<200); Estimated Glomerular Filt Rate > 60; Glucose Fasting 136 mg/dL (60-99); HDL Cholesterol 41 mg/dL (>40); LDL Cholesterol Calculated 85 mg/dL (<100); Potassium 3.9 mmol/L (3.3-5.1); Sodium 138 mmol/L (135-145); Total Protein 7.6 g/dL (6.5-8.0); Triglycerides 85 mg/dL (<150)
[2023-04-05 12:19] LABS: TSH reflex Free T4 1.07 uIU/mL (0.32-4.0); Vitamin D 25-OH Total 42.8 ng/mL (>30)
[2023-04-05 12:25] LABS: Folate 12.4 ng/mL (> or = 4.0); Vitamin B12 818 pg/mL (200-900)
== END 2023-04-05 10:01 | disposition home or self-care (01) ==
LOC: HO.LAB 10:00
PROVIDERS: PCP Internal Medicine; Visit Provider Internal Medicine
DX: E55.9 Vitamin D deficiency, unspecified (principal); E11.9 Type 2 diabetes mellitus without complications; I10 Essential (primary) hypertension; E53.8 Deficiency of other specified B group vitamins; E78.00 Pure hypercholesterolemia, unspecified
CPT/HCPCS: 36415; 80053; 80061; 82306; 82607; 82746; 83036; 84443; 85025

== ENCOUNTER 2023-04-06 12:37 | Outpatient (AMB) | payer MEDICARE, MEDICAID, SELFPAY ==
[2023-04-06 12:46] VITALS: BP 120/78; PULSE 84; O2SAT 95; BMI 40.8
--- NOTE | 2023-04-06 12:46 | MHC.PC.OV ---
Vital Signs 04/06/23 12:46 Height 5 ft 3 in Weight 230 lb 2 oz BMI 40.8 BP 120/78 Blood Pressure Location Lt brachial Position Sitting Pulse 84 Pulse Source Pulse Oximeter Pulse Oximetry (%) 95 Oxygen Delivery Method Room Air Intake Visit Reasons: 3mth f/u Integrated Circuit Fabricator Required: No Accompanied by: Self / Same As Patient Allergies penicillin G Allergy (Severe, Verified 07/29/23 11:19) Itching latex Allergy (Intermediate, Verified 07/29/23 11:19) Itching nitrofurantoin Allergy (Intermediate, Verified 07/29/23 11:19) itching and redness (in the legs) Medication List - Last Reconciled 04/06/23 by Leroy Jauregui MD [ADULT BRIEFS (size XL) As directed] [ADULT PULL-UPS (size XL) As directed] albuterol sulfate 90 mcg/actuation 2 puffs inhalation QID PRN albuterol sulfate 2.5 mg (3 mL) inhalation Q4-6H PRN alcohol swabs 1 pad topical TID amitriptyline 25 mg PO BEDTIME aspirin 81 mg PO DAILY 90 days atorvastatin 40 mg PO DAILY benzonatate 200 mg PO BID PRN 30 days blood pressure monitor As directed blood sugar diagnostic (OneTouch Verio test strips) Three times a day blood sugar diagnostic (OneTouch Verio test strips) As directed tests 4X/day blood-glucose meter Three times a day blood-glucose meter (OneTouch Verio Flex Meter) As directed trsts 4 X/day cholecalciferol (vitamin D3) 50 mcg PO DAILY 90 days cyanocobalamin (vitamin B-12) 1,000 mcg PO DAILY 90 days dexlansoprazole 60 mg PO DAILY diclofenac sodium 1% (Arthritis Pain (diclofenac)) 2 grams topical QID PRN dicyclomine take 2 tabs qhs and 1 tab tid prn orally 4 times a day; 30 days [DISPOSABLE WIPES As directed] dulaglutide (Trulicity) 3 mg (0.5 mL) subcut QWEEK duloxetine 60 mg PO DAILY escitalopram oxalate 5 mg PO DAILY flash glucose scanning reader (Lucky SortStyle [place] 14 Day [place]) As directed flash glucose sensor (FreeStyle [place] 14 Day Sensor kit) 1 ea topical Q2W fluticasone propionate 220 mcg/actuation (Flovent HFA) 1 puff PO BID fluticasone propionate 50 mcg/actuation 2 sprays intranasal DAILY 30 days [FOUR-PRONGED CANE As directed] furosemide 20 mg PO DAILY glucose 12 grams (3 x 4 gram) PO Q15M hydrochlorothiazide 25 mg PO DAILY 90 days ibuprofen 800 mg PO TID PRN insulin glargine (Lantus Solostar U-100 Insulin) 20 units (0.2 mL) subcut QAM ipratropium-albuterol 0.5 mg-3 mg(2.5 mg base)/3 mL 3 mL inhalation QID PRN lancets (OneTouch Delica Lancets) Three times a day lancets (FreeStyle Lancets) As directed three time a day lancets (OneTouch Delica Plus Lancet) As directed-tests 4 X/day lancets (FreeStyle Lancets) As directed lidocaine 5% (Lidoderm) 1 patch topical DAILY 30 days [LIGHTWEIGHT WALKER WITH SEAT walker with seat] linaclotide (Linzess) 72 mcg PO QAM loratadine 10 mg PO DAILY 90 days lorazepam mg PO memantine 10 mg PO BID metformin 1 tablet in the morning and 2 tablets in evening PO; 30 days metoclopramide HCl (Reglan) 10 mg PO QIDACHS metoclopramide HCl (Reglan) 5 mg PO QIDACHS metoprolol succinate ER 50 mg PO DAILY 30 days montelukast 10 mg PO BEDTIME nebulizers As directed nystatin 1 appl topical TID pen needle, diabetic (BD Ultra-Fine Cindy Pen Needle) twice daily pen needle, diabetic (Comfort EZ Pen [place]) As directed injects once a day prednisone PO daily; Take 2 tabs daily x 5 days, then 1 tab x 5 days 10 days pregabalin 150 mg PO Q8H 30 days [ROLLATOR with SEAT As directed] sertraline 50 mg PO DAILY Shower Chair As directed tiotropium-olodaterol 2.5-2.5 mcg/actuation (Stiolto Respimat) 2 puffs inhalation DAILY tizanidine 4 mg PO TID PRN tramadol 50 mg PO TID PRN 30 days valacyclovir 500 mg PO BID valsartan 320 mg PO DAILY Tobacco use date assessed: 04/06/23 Fall risk assessment: 2 + Falls in past year Last assessed Fall Risk: 04/06/23 Dental Screening Dental Screen Date: 04/06/23 Did you have a dental visit in the last 12 months?: Yes Did you have a dental problem in the last 6 months where you did not have access to dental care?: No Was dental information given to patient?: Patient has dentist HPI 3mth f/u HPI Details Patient comes in today for her follow up visit States that she feels okay She denies any headaches or dizziness Denies any chest pains, still has mild ALVAREZ (chronic) and states that she's had some chest congestion and on and off coughing lately Also relates (+) nasal congestion and mild sore throat at times Would like to get a prescription for a Z-racquel to help clear her symptoms up before they get worse as she does not want her asthma to flare up again She denies any fever No nausea/vomiting, no abdominal pain No change in bowel habits noted She continues to complain of increased diffuse pain and multiple joint pains, especially over her left knee Had her follow up labs done yesterday - to discuss her results [facility] Medical History Chest pain Calcific tendinitis of left shoulder Weakness of left upper extremity Weakness of both lower extremities Joint pain in fingers of both hands Joint pain in both hands Bilateral knee pain Vitamin B12 deficiency Bilateral ankle pain Rash Right foot pain Medicare annual wellness visit, subsequent Cervical cancer screening Bronchopneumonia Chronic low back pain Bilateral foot pain Bilateral hip pain Annual physical exam Stool incontinence Hyperlipidemia LDL goal <70 Bilateral hip pain Fibromyalgia Chronic bronchitis Vitamin D deficiency Post-thoracotomy pain syndrome COPD (chronic obstructive pulmonary disease) Depression Anxiety Type 2 diabetes mellitus with diabetic polyneuropathy Pulmonary nodules Allergic rhinitis GERD (gastroesophageal reflux disease) Morbid obesity with BMI of 40.0-44.9, adult Asthma Obstructive sleep apnea Lumbar degenerative disc disease Carcinoid tumor Coronary artery disease Benign essential hypertension Type 2 diabetes mellitus with hyperglycemia, with long-term current use of insulin Surgical History History of colonoscopy (~12/2013) History of tubal ligation History of lung biopsy (~07/2016) History of esophagogastroduodenoscopy (EGD) (~10/2011) History of lobectomy of lung (~08/2016) History of rectal sphincterotomy (~11/2013) History of cardiac cath (~07/2018) Family History Father Stroke Hypertension Diabetes Mother Diabetes Hypertension Other Arthritis Lupus Social History Household Members: Spouse Housing: Apartment Alcohol intake: never Patient Tobacco Use Status: Former Tobacco user Tobacco use type: Cigarette e-Cigarette/Vaping Use: Never Used Second Hand Smoke Exposure: Yes service: No Current occupational status: disabled Cognitive needs: No Hearing needs: No Vision needs: Yes Questionnaire PHQ-9 Over the last 2 weeks, how often have you been bothered by any of the following problems? 1. Little interest or pleasure in doing things: nearly every day 2. Feeling down, depressed, or hopeless: several days 3. Trouble falling or staying asleep, or sleeping too much: nearly every day 4. Feeling tired or having little energy: several days 5. Poor appetite or overeating: several days 6. Feeling bad about yourself - or that you are a failure or have let yourself or your family down: several days 7. Trouble concentrating on things, such as reading the newspaper or watching television: several days 8. Moving or speaking so slowly that other people could have noticed. Or the opposite - being so fidgety or restless that you have been moving around a lot more than usual: several days 9. Thoughts that you would be better off or of hurting yourself in some way: not at all Total score: 12 Depression Screening Interpretation: Positive Depression Screening Follow-up: Existing condition and In treatment Depression Screening Done: Yes 15710 - PHQ-9 Billing: Yes Source: Developed by Drs. Jeffrey Chavez, Marj Villatoro, Vaibhav Pagan and colleagues, with an educational norm from [employer]. Thrive Questionnaire Date Thrive assessed: 04/06/23 I am a: Patient What is your living situation today?: I have a steady place to live Within the past 12 months, did the food you bought not last and you didn't have the money to get more?: Never true Within the past 12 months, did you worry whether your food would run out before you got money to buy more?: Never true Do you have trouble paying for medicines?: No Do you have trouble getting transportation to medical appointments?: No Do you have trouble paying your heating and electricity bill?: No Do you have trouble taking care of your child, family member or friend?: No Do you have trouble with day-to-day activities such as bathing, preparing meals, shopping, managing finances, etc.?: No Are you currently unemployed and looking for a job?: No Are you interested in more education?: No Please select the resources that you would like help with: None Currently or been in a relationship where the following occur: no concerns reported THRIVE Score: 0 AUDIT C Alcohol Use Questionnaire (AUDIT-C) 1. How often do you have a drink containing alcohol?: Never 3. How often do you have six or more drinks on one occasion?: Never Total Score: 0 Score Reviewed/Action Taken: Yes EVELINE-7 AMB Questionnaire EVELINE-7 Date EVELINE - 7 assessed: 04/06/23 Feeling nervous, anxious, or on edge: 0 = Not at all Not being able to stop or control worryin = Not at all Worrying too much about different things: 0 = Not at all Trouble relaxin = Not at all Being so restless that it is hard to sit still: 0 = Not at all Becoming easily annoyed or irritable: 0 = Not at all Feeling afraid as if something awful might happen: 0 = Not at all Total EVELINE-7 score (0-4 normal; 5-9 mild; 10-14 moderate; 15-21 severe): 0 Source: Developed by Drs. Jeffrey Chavez, Marj Villatoro, Vaibhav Pagan and colleagues, with an educational norm from [employer]. Review of Systems Const Reports difficulty sleeping, Reports fatigue, Denies fever(s) and Denies headache(s) ENT Denies dysphagia, Denies dizziness, Denies headache(s), Reports nasal congestion, Denies odynophagia and Reports sore throat (mild) Card Denies chest pain, Denies palpitations and Reports dyspnea on exertion (mild) Resp Reports chest congestion (mild, on and off), Reports cough (on and off; coughs up minimal clear phlegm at times), Reports dyspnea on exertion (mild) and Denies wheezing GI Denies abdominal pain, Denies constipation, Denies dysphagia, Denies heartburn, Reports fecal incontinence, Denies diarrhea, Denies nausea, Denies odynophagia and Denies vomiting Denies difficulty voiding, Denies nocturia, Denies dysuria and Reports urinary incontinence (at times) Musc Details: (+) increased pain over the left shoulder, left hip and left knee since her fall on 06/17/2023 Reports back pain (especially over the right lower back), Reports arthralgias (over the left shoulder - increased lately; also over left hip and left knee) and Reports numbness (in both feet, on and off) Skin/Breast Denies rash Neuro Denies dizziness, Denies headache(s), Reports numbness (in both feet, on and off) and Reports paresthesias (in both feet) Endo Reports fatigue and Denies palpitations Aller/Immun Denies wheezing Physical exam (Primary Care) Vital Signs: Last Vital Signs Pulse 84 04/06/23 12:46 BP 120/78 04/06/23 12:46 Pulse Ox 95 04/06/23 12:46 Oxygen Delivery Method Room Air 04/06/23 12:46 BMI result Body Mass Index 40.8 Tobacco/Smoking Status: Tobacco use Status Tobacco use date assessed 04/06/23 04/06/23 12:50 Patient Tobacco Use Status Former Tobacco user 04/06/23 12:50 Tobacco use type Cigarette 04/06/23 12:50 e-Cigarette/Vaping Use Never Used 04/06/23 12:50 PHQ-9: PHQ-9 Score PHQ-9: Total score 12 04/06/23 13:42 Depression Screening Interpretation: Positive Depression Screening Follow-up: Existing condition and In treatment Thrive Assessment: Date of Thrive Assessment Date Thrive assessed 04/06/23 04/06/23 12:50 Currently or been in a relationship where the following occur: no concerns reported Const General: no acute distress and alert HENMT Ears: TM's normal bilaterally and EAC's normal Throat: Yes posterior oropharynx normal and Yes tonsils normal (no TP congestion noted) Neck Neck: Yes no lymphadenopathy and Yes supple Thyroid: Thyroid normal Resp Auscultation: clear to auscultation bilaterally, no rales and no wheezes Cardio Rate: regular rate Rhythm: regular rhythm Heart sounds: no murmurs GI Palpation (GI): Soft to palpation and nontender Auscultation: normal bowel sounds Back/Spine/Pelvis Cervical Spine: Cervical spine tenderness (mild) Thoracic/Lumbar Spine: paraspinal muscle tenderness on the right in the lower lumbar and lumbar spinal tenderness Skin Rashes: no rashes Extrem General: Yes no clubbing, cyanosis or edema Left upper extremity: shoulder/upper arm Details: tenderness Location: of the A-C joint Left lower extremity: hip/thigh Details: tenderness and knee Details: tenderness (increased); no swelling Results Reviewed Results Reviewed: Laboratory Tests 04/05/23 10:26 WBC 10.9 H Hgb 12.5 Hct 40.1 Plt Count 387 Sodium 138 Potassium 3.9 Estimated GFR > 60 Fasting Glucose 136 H Hemoglobin A1c % 7.5 H Calcium 9.0 D AST 34 H ALT 18 Triglycerides 85 Cholesterol 143 LDL Cholesterol, Calc 85 HDL Cholesterol 41 Vitamin B12 818 25-OH Vitamin D Total 42.8 TSH 1.07 Assessment and Plan Assessment & Plan (1) Type 2 diabetes mellitus with diabetic polyneuropathy: Code(s): E11.42 - Type 2 diabetes mellitus with diabetic polyneuropathy Qualifiers: Diabetes mellitus intermediate manager insulin use: with intermediate manager use Qualified Code(s): E11.42 - Type 2 diabetes mellitus with diabetic polyneuropathy; Z79.4 - 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 Plan: HgbA1c is at 7.5% on her labs done yesterday (was at 7.9% a few months ago) - goal is <7.0% Reinforced diabetic diet Continue Metformin 500 mg BID, Lantus 20 units Q HS and Trulcity 3 mg SQ Q week Patient was also on Repaglinide 0.5 mg 1 tablet before breakfast and 2 tablets before dinner in the past but she has not been taking this for a while now Follow up with endocrinology as scheduled (2) Coronary artery disease: Code(s): I25.10 - Atherosclerotic heart disease of [place] coronary artery without angina pectoris Qualifiers: Coronary Disease-Associated Artery/Lesion type: [place] artery [place] vs. transplanted heart: [place] heart Associated angina: without angina Qualified Code(s): I25.10 - Atherosclerotic heart disease of [place] coronary artery without angina pectoris Plan: S/P cardiac cath on 07/2018 - (+) very mild disease reportedly seen on procedure Continue aggressive risk factor reduction and low dose Aspirin 81 mg QD Echocardiogram done with cardiology in November 2022 revealed normal LV systolic function with EF between 65 to 70%, normal diastolic function, normal left atrial size, normal RV systolic function, no evidence of aortic stenosis but (+) mild to moderate MR is present Follow up with cardiology as scheduled (3) Pure hypercholesterolemia: Code(s): E78.00 - Pure hypercholesterolemia, unspecified Plan: Results of her labs done yesterday reviewed and discussed with patient Reinforced low cholesterol diet Continue Atorvastatin 40 mg QD Will recheck her labs and fasting lipids in 4 months for follow-up (4) Benign essential hypertension: Code(s): I10 - Essential (primary) hypertension Plan: Reinforced low sodium diet - goal is systolic BP of at least 130 mm or less Continue HCTZ 25 mg QD, Metoprolol ER 50 mg QD and Valsartan 320 mg QD (5) Carcinoid tumor: Comment: ([place] [facility] [place] Code(s): D3A.00 - Benign carcinoid tumor of unspecified site Qualifiers: Carcinoid tumor malignancy status: malignant Carcinoid tumor location: lung Qualified Code(s): 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 Waggoner on 09/02/[address] done in September 2020 and a couple of weeks ago (August 2021) showed stable findings with (+) pulmonary nodules that appear benign Was seen by pulmonary and recommended to continue yearly chest CT for follow up Follow up with pulmonary and Dr. Waggoner and oncology as scheduled for continuing surveillance (6) Stool incontinence: Comment: (+) Hx of sphincterotomy in 2013 - Dr. Sidhu Code(s): R15.9 - Full incontinence of feces Qualifiers: Fecal incontinence type: unspecified Qualified Code(s): R15.9 - Full incontinence of feces Plan: (+) Hx of sphincterotomy by Dr. Sidhu in 2013 Reports that her stool incontinence has been progressively getting worse lately Follow up with GI as scheduled (7) Chronic idiopathic constipation: Code(s): K59.04 - Chronic idiopathic constipation Plan: Reinforced increased oral fluids and dietary fiber Continue Linzess 145 mcg QD PRN Follow up with GI as scheduled (8) Obstructive sleep apnea: Comment: no evidence of ILDEFONSO on recent inlab PSG Code(s): G47.33 - Obstructive sleep apnea (adult) (pediatric) Plan: Continue using her CPAP device at night when sleeping (9) Asthma: Code(s): J45.909 - Unspecified asthma, uncomplicated Qualifiers: Asthma severity: moderate Asthma persistence: persistent Asthma complication type: with acute exacerbation Qualified Code(s): J45.41 - Moderate persistent asthma with (acute) exacerbation Plan: Stable with no acute exacerbations lately Continue Spiriva Respimat 2.5 mcg 2 puffs QD, ? Flovent HFA 220 mcg 1 puff BID, ? Montelukast 10 mg QD, ? Ipratropium-albuterol (Duoneb) solution via nebulilzeer 4 times a day as needed, and ? ProAir HFA 108 mcg 2 puffs QID PRN Follow up with pulmonary as scheduled (10) Upper respiratory tract infection: Code(s): J06.9 - Acute upper respiratory infection, unspecified Qualifiers: URI type: unspecified URI Qualified Code(s): J06.9 - Acute upper respiratory infection, unspecified Plan: Per request, will start her empirically on Azithromycin x 5 days She is advised to call if her respiratory symptoms get worse or do not improve significantly with empiric antibiotic treatment (11) Primary osteoarthritis of both knees: Code(s): M17.0 - Bilateral primary osteoarthritis of knee Plan: S/P fall on knee back in October 2021, with (+) significant knee contusion that took a few weeks to clear up (+) Hx of bilateral knee OA Repeat left knee x-rays done a few months ago revealed (+) significant degenerative joint disease seen involving the medial joint space compartment and patellofemoral joint without significant change from 07/18/2020 Follow up with orthopedics as scheduled (12) Bilateral hip pain: Code(s): M25.551 - Pain in right hip; M25.552 - Pain in left hip Plan: c/o increasing bilateral hip and inguinal pain lately, especially with prolonged walking but symptoms have subsided lately Bilateral hip x-rays done a few months ago came out normal Will refer to PT if symptoms persist or worsen (13) Primary osteoarthritis, left shoulder: Code(s): M19.012 - Primary osteoarthritis, left shoulder Plan: X-rays of the left shoulder done months ago revealed (+) significant degenerative osteoarthritis changes as well as changes suggestive of tendinitis Follow-up with orthopedics as scheduled (14) Lumbar degenerative disc disease: Code(s): M51.36 - Other intervertebral disc degeneration, lumbar region Plan: Reinforced activity and weight-lifting restrictions Continue on Tizanidine 4 mg TID PRN, ? Oxaprozin 600 mg TID with food PRN, ? Ibuprofen 800 mg TID PRN with food, ? Tramadol 50 mg TID PRN (Rx refilled), ? Lyrica 100 mg TID, and ? Duloxetine 60 mg QD Follow up with pain management as scheduled (15) Vitamin D deficiency: Code(s): E55.9 - Vitamin D deficiency, unspecified Plan: Corrected - continue Vitamin D3 2000 units QD (16) Vitamin B12 deficiency: Code(s): E53.8 - Deficiency of other specified B group vitamins Plan: Patient is advised that her Vitamin B12 level was low normal on her recent labs Will start her on Vitamin B12 1000 mcg QD (17) GERD (gastroesophageal reflux disease): Code(s): K21.9 - Gastro-esophageal reflux disease without esophagitis Qualifiers: Esophagitis presence: without esophagitis Qualified Code(s): K21.9 - Gastro-esophageal reflux disease without esophagitis Plan: Dietary restrictions reinforced Continue Dexilant 60 mg QD Follow up with GI as scheduled (18) Depression: Code(s): F32.9 - Major depressive disorder, single episode, unspecified Qualifiers: Depression Type: major depressive disorder Major depression recurrence: recurrent Active/Remission status: currently active Major depression episode severity: unspecified Qualified Code(s): F33.9 - Major depressive disorder, recurrent, unspecified Plan: Continue Fluoxetine 20 mg QD Follow up with psychiatry as scheduled (19) Morbid obesity with BMI of 40.0-44.9, adult: Code(s): E66.01 - Morbid (severe) obesity due to excess calories; Z68.41 - Body mass index [BMI] 40.0-44.9, adult Plan: Reinforced diet; exercise and weight loss are likely unrealistic in this patient due to her multiple comorbidities and physical issues Plan Follow up in 4 months Orders: Orders Hemoglobin A1c 4 Months E11.9 - Type 2 diabetes mellitus without complications Lipid Panel 4 Months E78.00 - Pure hypercholesterolemia, unspecified Complete Blood Count Auto Diff 4 Months D64.9 - Anemia, unspecified Comprehensive [place]. Panel Fast 4 Months E78.00 - Pure hypercholesterolemia, unspecified Medications: New azithromycin take 500 mg today (day 1), then 250 mg for 4 days (days 2-5) PO 6 tabs 0RF Coding Level of Care Code Est Pt Level 4 (43430) Diagnoses Type 2 diabetes mellitus with diabetic polyneuropathy, with long-term current use of insulin E11.42; Z79.4 Diabetes mellitus intermediate manager insulin use: with intermediate manager use Coronary artery disease involving [place] coronary artery of [place] heart without angina pectoris I25.10 Coronary Disease-Associated Artery/Lesion type: [place] artery [place] vs. transplanted heart: [place] heart Associated angina: without angina Pure hypercholesterolemia E78.00 Benign essential hypertension I10 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 Carcinoid tumor malignancy status: malignant Carcinoid tumor location: lung Incontinence of feces, unspecified fecal incontinence type R15.9 Fecal incontinence type: unspecified Chronic idiopathic constipation K59.04 Obstructive sleep apnea G47.33 Moderate persistent asthma with acute exacerbation J45.41 Asthma severity: moderate Asthma persistence: persistent Asthma complication type: with acute exacerbation Upper respiratory tract infection, unspecified type J06.9 URI type: unspecified URI Primary osteoarthritis of both knees M17.0 Bilateral hip pain M25.551; M25.552 Primary osteoarthritis, left shoulder M19.012 Lumbar degenerative disc disease M51.36 Vitamin D deficiency E55.9 Vitamin B12 deficiency E53.8 Gastroesophageal reflux disease without esophagitis K21.9 Esophagitis presence: without esophagitis Episode of recurrent major depressive disorder, unspecified depression episode severity F33.9 Depression Type: major depressive disorder Major depression recurrence: recurrent Active/Remission status: currently active Major depression episode severity: unspecified Morbid obesity with BMI of 40.0-44.9, adult E66.01; Z68.41
== END 2023-04-06 13:46 | disposition home or self-care (01) ==
PROVIDERS: PCP Internal Medicine; Visit Provider Internal Medicine
DX: E11.42 Type 2 diabetes mellitus with diabetic polyneuropathy (principal); Z79.4 Long term (current) use of insulin; C7A.090 Malignant carcinoid tumor of the bronchus and lung; F33.9 Major depressive disorder, recurrent, unspecified; E66.01 Morbid (severe) obesity due to excess calories; Z68.41 Body mass index [BMI] 40.0-44.9, adult; I25.10 Atherosclerotic heart disease of native coronary artery without angina pectoris; E78.00 Pure hypercholesterolemia, unspecified; I10 Essential (primary) hypertension; R15.9 Full incontinence of feces; K59.04 Chronic idiopathic constipation; G47.33 Obstructive sleep apnea (adult) (pediatric)
CPT/HCPCS: 99214

== ENCOUNTER 2023-04-13 11:22 | Outpatient (AMB) | payer MEDICARE, MEDICAID, SELFPAY ==
--- NOTE | 2023-04-13 11:33 | MHC.OFFVIS ---
Intake Vital Signs 04/13/23 11:38 Height 5 ft 3 in Weight 233 lb 14.567 oz BMI 41.4 BP 142/62 H Pulse 73 Pulse Source Pulse Oximeter Pulse Oximetry (%) 98 Oxygen Delivery Method Room Air Intake Visit Reasons: DM-confirmed Intake Note: Patient presents today to follow up on D2MT. Last Diabetic Eye exam: February 2023 Last Podiatry Visit: January 2023 Random Glucose: 112 mg/dl HgA1c: 7.5% 04/05/23 It Risk And Assurance Manager Required: Yes It Risk And Assurance Manager Name: Dulce Eid Allergies penicillin G Allergy (Severe, Verified 04/06/23 13:33) Itching latex Allergy (Intermediate, Verified 04/06/23 13:33) Unknown nitrofurantoin Allergy (Intermediate, Verified 04/06/23 13:33) itching and redness (in the legs) Medication List - Last Reconciled 04/13/23 by Jeffrey Lim MD [ADULT BRIEFS (size XL) As directed] [ADULT PULL-UPS (size XL) As directed] albuterol sulfate 90 mcg/actuation 2 puffs inhalation QID PRN albuterol sulfate 2.5 mg (3 mL) inhalation Q4-6H PRN alcohol swabs 1 pad topical TID amitriptyline 25 mg PO BEDTIME aspirin 81 mg PO DAILY 90 days atorvastatin 40 mg PO DAILY azithromycin take 500 mg today (day 1), then 250 mg for 4 days (days 2-5) PO benzonatate 200 mg PO BID PRN 30 days blood pressure monitor As directed blood sugar diagnostic (OneTouch Verio test strips) Three times a day blood sugar diagnostic (OneTouch Verio test strips) As directed tests 4X/day blood-glucose meter Three times a day blood-glucose meter (OneTouch Verio Flex Meter) As directed trsts 4 X/day cholecalciferol (vitamin D3) 50 mcg PO DAILY 90 days cyanocobalamin (vitamin B-12) 1,000 mcg PO DAILY 90 days dexlansoprazole 60 mg PO DAILY diclofenac sodium 1% (Arthritis Pain (diclofenac)) 2 grams topical QID PRN dicyclomine take 2 tabs qhs and 1 tab tid prn orally 4 times a day; 30 days [DISPOSABLE WIPES As directed] dulaglutide (Trulicity) 3 mg (0.5 mL) subcut QWEEK duloxetine 60 mg PO DAILY escitalopram oxalate 5 mg PO DAILY flash glucose scanning reader ([employer] Mary Ann 14 Day Eden) As directed flash glucose sensor (FreeStyle Mary Ann 14 Day Sensor kit) 1 ea topical Q2W fluticasone propionate 220 mcg/actuation (Flovent HFA) 1 puff PO BID fluticasone propionate 50 mcg/actuation 2 sprays intranasal DAILY 30 days [FOUR-PRONGED CANE As directed] furosemide 20 mg PO DAILY glucose 12 grams (3 x 4 gram) PO Q15M hydrochlorothiazide 25 mg PO DAILY 90 days ibuprofen 800 mg PO TID PRN insulin glargine (Lantus Solostar U-100 Insulin) 20 units (0.2 mL) subcut QAM ipratropium-albuterol 0.5 mg-3 mg(2.5 mg base)/3 mL 3 mL inhalation QID PRN lancets (OneTouch Delica Lancets) Three times a day lancets (FreeStyle Lancets) As directed three time a day lancets (OneTouch Delica Plus Lancet) As directed-tests 4 X/day lancets (FreeStyle Lancets) As directed lidocaine 5% (Lidoderm) 1 patch topical DAILY 30 days [LIGHTWEIGHT WALKER WITH SEAT walker with seat] linaclotide (Linzess) 72 mcg PO QAM loratadine 10 mg PO DAILY 90 days lorazepam mg PO memantine 10 mg PO BID metformin 1 tablet in the morning and 2 tablets in evening PO; 30 days metoclopramide HCl (Reglan) 10 mg PO QIDACHS metoclopramide HCl (Reglan) 5 mg PO QIDACHS metoprolol succinate ER 50 mg PO DAILY 30 days montelukast 10 mg PO BEDTIME nebulizers As directed nystatin 1 appl topical TID pen needle, diabetic (BD Ultra-Fine Cindy Pen Needle) twice daily pen needle, diabetic (Comfort EZ Pen Hutchinson) As directed injects once a day prednisone PO daily; Take 2 tabs daily x 5 days, then 1 tab x 5 days 10 days pregabalin 150 mg PO Q8H 30 days [ROLLATOR with SEAT As directed] sertraline 50 mg PO DAILY Shower Chair As directed tiotropium-olodaterol 2.5-2.5 mcg/actuation (Stiolto Respimat) 2 puffs inhalation DAILY tizanidine 4 mg PO TID PRN tramadol 50 mg PO TID PRN 30 days valacyclovir 500 mg PO BID valsartan 320 mg PO DAILY HPI HPI Comments History of Present Illness Details Patient is 67 yo female with DM type 2 diagnosed around 2014, who presents for management her diabetes.. Past medical history:DM2, HTN, HLD, COPD, ILDEFONSO, gastroparesis Micro and macrovascular complications: neuropathy Diabetes medications: metformin 500 BID . Trulicity 3 mg Qwkly, Lantus 20 units not taking Continuous glucose monitoring: Mary Ann download shows she is using the sensor 73% of the time. Average glucose is 150 with G mi of 6.9% and variability 26.9%. 79% range with 21% hyperglycemia and no hypoglycemia No Hypoglycemic symptoms: Hyperglycemic symptoms: denies polyuria, occasional nocturia Exercise: walking on occasion, but has difficulty because falls a lot. Eye exam: appt 08/12/22 , denies retinopathy, report pending Took prednisone up to yesterday Laboratory Tests 02/13/21 02/13/21 02/13/21 09:48 09:48 09:48 Creatinine 0.77 Estimated GFR > 60 Hemoglobin A1c % 7.8 Triglycerides 84 Cholesterol 121 LDL Cholesterol, C alc 72 HDL Cholesterol 33 25-OH Vitamin D To brynn 21.0 TSH 1.84 Microalb/Creat Rat io 4.3 11/12/20 11/12/20 11/12/20 11:53 11:53 11:53 Creatinine 0.75 Estimated GFR > 60 Hemoglobin A1c % 8.3 Triglycerides 66 Cholesterol 124 LDL Cholesterol, C alc 73 HDL Cholesterol 38 Microalb/Creat Rat io 6.3 [facility] Medical History Weakness of left upper extremity Weakness of both lower extremities Joint pain in fingers of both hands Joint pain in both hands Bilateral knee pain Vitamin B12 deficiency Bilateral ankle pain Rash Right foot pain Medicare annual wellness visit, subsequent Cervical cancer screening Bronchopneumonia Chronic low back pain Bilateral foot pain Bilateral hip pain Annual physical exam Chest pain Stool incontinence Hyperlipidemia LDL goal <70 Bilateral hip pain Fibromyalgia Chronic bronchitis Vitamin D deficiency Post-thoracotomy pain syndrome COPD (chronic obstructive pulmonary disease) Depression Anxiety Type 2 diabetes mellitus with diabetic polyneuropathy Pulmonary nodules Allergic rhinitis GERD (gastroesophageal reflux disease) Morbid obesity with BMI of 40.0-44.9, adult Asthma Obstructive sleep apnea Lumbar degenerative disc disease Carcinoid tumor Coronary artery disease Benign essential hypertension Type 2 diabetes mellitus with hyperglycemia, with long-term current use of insulin Surgical History History of colonoscopy (~12/2013) History of tubal ligation History of lung biopsy (~07/2016) History of esophagogastroduodenoscopy (EGD) (~10/2011) History of lobectomy of lung (~08/2016) History of rectal sphincterotomy (~11/2013) History of cardiac cath (~07/2018) Family History Father Stroke Hypertension Diabetes Mother Diabetes Hypertension Other Arthritis Lupus Social History Household Members: Spouse Housing: Apartment Alcohol intake: never Patient Tobacco Use Status: Former Tobacco user Tobacco use type: Cigarette e-Cigarette/Vaping Use: Never Used Second Hand Smoke Exposure: Yes service: No Current occupational status: disabled Cognitive needs: No Hearing needs: No Vision needs: Yes Physical Exam Vital Signs: Last Vital Signs Pulse 73 04/13/23 11:38 BP 142/62 H 04/13/23 11:38 Pulse Ox 98 04/13/23 11:38 Oxygen Delivery Method Room Air 04/13/23 11:38 BMI result Body Mass Index 41.4 Absence of Cushingoid features. Absence of acromegalic features. Neck exam reveals nl size thyroid about 15 gms. No thyroid nodules palpable. No carotid bruits present. Lungs CTA. Heart S1 S2, Reg R/R. No M/R/ G. Skin exam reveals absence of vitiligo or acanthosis nigricans. Abdominal exam reveals Soft NT/ND with NA BS. No organomegaly present. Neck Other: . Extrem Other: Visual exam of foot performed. No ulcerations or open lesions. No onchomycosis, no callouses.Pulses 2 + distally Sensation intact to monofilament exam. Vibratory sensation sensed is intact with 128 Hz tuning fork Results Reviewed Results Reviewed: Laboratory Last Values Glucose (Clinic) 112 mg/dL (60-115) 04/13/23 11:51 Assessment & Plan Assessment & Plan (1) Type 2 diabetes mellitus with diabetic polyneuropathy: Code(s): E11.42 - Type 2 diabetes mellitus with diabetic polyneuropathy Qualifiers: Diabetes mellitus prison insulin use: with intermediate accountant use Qualified Code(s): E11.42 - Type 2 diabetes mellitus with diabetic polyneuropathy; Z79.4 - long-term (current) use of insulin Plan: This 67-year-old female with history of type 2 diabetes being managed metformin, Victoza and basal insulin with excellent optimal glycemic control and known microvascular complications namely neuropathy. Plan is to continue the current management. Medications: New flash glucose sensor (FreeStyle Mary Ann 2 Sensor kit) As directed change every 14 days 2 ea 4RF flash glucose sensor (FreeStyle Mary Ann 2 Sensor kit) As directed change every 14 days 2 ea 4RF flash glucose scanning reader (FreeStyle Mary Ann 2 Eden) As directed 1 ea 0RF flash glucose scanning reader (FreeStyle Mary Ann 2 Eden) As directed 1 ea 0RF Discontinued flash glucose sensor (FreeStyle Mary Ann 14 Day Sensor kit) Discontinued Reason: Doctor's Order 1 ea topical Q2W 2 ea 6RF E11.42 - Type 2 diabetes mellitus with diabetic polyneuropathy Coding Level of Care Code Est Pt Level 4 (56133) Diagnoses Type 2 diabetes mellitus with diabetic polyneuropathy, with long-term current use of insulin E11.42; Z79.4 Diabetes mellitus prison insulin use: with intermediate accountant use
[2023-04-13 11:38] VITALS: BP 142/62; PULSE 73; O2SAT 98; BMI 41.4
[2023-04-13 12:10] LABS: Glucose, Whole Blood 112 mg/dL (60-115)
== END 2023-04-13 12:02 | disposition home or self-care (01) ==
PROVIDERS: PCP Internal Medicine; Visit Provider Internal Medicine Endocrinology, Diabetes & Metabolism
DX: E11.42 Type 2 diabetes mellitus with diabetic polyneuropathy (principal); Z79.4 Long term (current) use of insulin
CPT/HCPCS: 99214

== ENCOUNTER → 2023-04-13 11:22 | Outpatient (BNVA) | payer MEDICARE, MEDICAID, SELFPAY | PROVIDERS: PCP Internal Medicine; Visit Provider Internal Medicine Endocrinology, Diabetes & Metabolism | DX: E11.42 Type 2 diabetes mellitus with diabetic polyneuropathy (principal); Z79.4 Long term (current) use of insulin | CPT/HCPCS: 82947; 99212 ==

== ENCOUNTER 2023-04-21 10:25 | Outpatient (AMB) | payer MEDICARE, MEDICAID, SELFPAY ==
[2023-04-21 10:33] VITALS: BP 118/64; PULSE 80; O2SAT 96; BMI 41.2
--- NOTE | 2023-04-21 10:33 | MHC.OFFVIS ---
Intake Vital Signs 04/21/23 10:33 Height 5 ft 3 in Weight 232 lb 9.403 oz BMI 41.2 BP 118/64 Blood Pressure Location Lt brachial Position Sitting Pulse 80 Pulse Source Pulse Oximeter Pulse Oximetry (%) 96 Oxygen Delivery Method Room Air Intake Visit Reasons: Joint Pain Intake Note: Patient last seen 01/18/23 by Yvette, presents today for follow up and test results. Civil Engineering Draftsperson Required: Yes Civil Engineering Draftsperson Name: Maribel [id number] Information Interpreted: clinical only Accompanied by: Grand Child Allergies penicillin G Allergy (Severe, Verified 04/21/23 10:37) Itching latex Allergy (Intermediate, Verified 04/21/23 10:37) Unknown nitrofurantoin Allergy (Intermediate, Verified 04/21/23 10:37) itching and redness (in the legs) HPI HPI Comments History of Present Illness Details Ms. Garcia is a very pleasant 67 year old female who returns with her PULMONARY PHYSICAL THERAPIST for follow-up of evaluation her chronic joint pain. The cortisone injection to left knee was helpful. She continues with pain the left shoulder and is unable to lift it past 90 degrees. She continues to take lyrica and Ibuprofen, lidocaine patches to right lower back. She has diabetic neuropathy to bilateral feet. Past medical history:DM2, HTN, HLD, COPD, ILDEFONSO, gastroparesis Micro and macrovascular complications: neuropathy Initial History: Ms. Garcia is a very pleasant 67 year old female who presents with her PULMONARY PHYSICAL THERAPIST for evaluation and management of her chronic joint pain. Patient recently evaluated by Dr Duggan for bilateral knee OA, and was referred to pain management for her lower back pain and pain management refer her to rheumatology. She reports that she is weak and in pain especially to her left shoulder, her knees and feet. This has been going on for a long time but has gotten worse in the last year. She has tried muscle relaxers, NSAIDs and Tramadol with limited benefit. She is currently taking lyrica and Ibuprofen, prescribed by PCP with some relief of her to her back pain but not much to the other joints. She also uses topical lidocaine patches to right lower back and states that helps. She says this level of pain is negatively impacting her general activity, mood and makes it difficult to walk. She also c/o pain, burning, numbness and tingling to bilateral feet. Reports having EMG in the past and was told she has diabetic neuropathy. She reports she had steroid injections in both knees but cannot remember when was the last one Patient denies Raynaud's phenomenon, butterfly rash on face. She had a recent rashes to right upper arm and was treated with topical steroids - it is resolved; denies photosensitivity - getting sick or developing a rash from being out in the sun; denies blood or froth in urine; patient denies hx of SOB, chest pain. Patient denies hx of Carditis or Pleuritis. Patient denies any history of DVT/PE. The patient reports never have had o take aspirin or a blood thinner during her successful pregnancies. Denies fevers, excessive fatigue, unexplained weight-loss or weight-gain, Denies: thinning hair or hair loss Denies: dry, itchy eyes, red burning eyes needing steroids to treat; dry mouth, mouth sores or ulcers; nose bleed; ringing in the ear, Denies abdominal pain, blood or mucous in stool; nausea, vomiting and diarrhea , difficulty swallowing, has heartburn and takes medication. She reports morning stiffness lasting the whole day. She denies seeing her joints red. She reports the knees swell sometimes but is not sure if they get warm. Hx of Right Lung Ca 2020 - under monitoring. Uptodate malignancy screening for colonoscopy, mammogram She does not remember if she has done a bone density scan. After visit Findings: Left knee injections Cardiac and vascular consults for leg swelling Podiatry for fungal nail care COUNTS INCLUDE 234 BEDS AT THE [facility] Medical History (Updated 04/21/23 @ 11:13 by CHI ChakrabortyP-) Calcific tendinitis of left shoulder Weakness of left upper extremity Weakness of both lower extremities Joint pain in fingers of both hands Joint pain in both hands Bilateral knee pain Vitamin B12 deficiency Bilateral ankle pain Rash Right foot pain Medicare annual wellness visit, subsequent Cervical cancer screening Bronchopneumonia Chronic low back pain Bilateral foot pain Bilateral hip pain Annual physical exam Chest pain Stool incontinence Hyperlipidemia LDL goal <70 Bilateral hip pain Fibromyalgia Chronic bronchitis Vitamin D deficiency Post-thoracotomy pain syndrome COPD (chronic obstructive pulmonary disease) Depression Anxiety Type 2 diabetes mellitus with diabetic polyneuropathy Pulmonary nodules Allergic rhinitis GERD (gastroesophageal reflux disease) Morbid obesity with BMI of 40.0-44.9, adult Asthma Obstructive sleep apnea Lumbar degenerative disc disease Carcinoid tumor Coronary artery disease Benign essential hypertension Type 2 diabetes mellitus with hyperglycemia, with long-term current use of insulin Surgical History History of colonoscopy (~12/2013) History of tubal ligation History of lung biopsy (~07/2016) History of esophagogastroduodenoscopy (EGD) (~10/2011) History of lobectomy of lung (~08/2016) History of rectal sphincterotomy (~11/2013) History of cardiac cath (~07/2018) Family History Father Stroke Hypertension Diabetes Mother Diabetes Hypertension Other Arthritis Lupus Social History Household Members: Spouse Housing: Apartment Alcohol intake: never Patient Tobacco Use Status: Former Tobacco user Tobacco use type: Cigarette e-Cigarette/Vaping Use: Never Used Second Hand Smoke Exposure: Yes service: No Current occupational status: disabled Cognitive needs: No Hearing needs: No Vision needs: Yes Review of Systems Const All systems reviewed & are unremarkable except as noted in HPI and below Physical Exam Vital Signs: Last Vital Signs Pulse 80 04/21/23 10:33 BP 118/64 04/21/23 10:33 Pulse Ox 96 04/21/23 10:33 Oxygen Delivery Method Room Air 04/21/23 10:33 BMI result Body Mass Index 41.2 APPEARANCE: Patient in no acute distress, obese EYES no redness, pupils equal and reactive to light, eyelids normal EARS:? External ear normal, canal clear and tympanic membrane normal. NOSE/SINUS:? Airflow through both nares, no nasal discharge, no bleeding THROAT:? Oral mucosa moist, no ulcerations NECK:? No thyromegaly or masses, no adenopathy, trachea midline. HEART:? Regular rhythm, S1-S2 heard, no murmurs, rubs or gallops. LUNG:? Clear to percussion and auscultation, decreased in the bases ABD:? Normal bowel sounds, no organomegaly, masses or tenderness. larged abdomen, soft EXTREMITIES:? trace edema, no calf tenderness, normal peripheral pulses. Upper extremities strength 3/5 right 2/5 left. NEURO:? Oriented and alert x3.? No focal weakness.? Reflexes symmetric.? Gait normal. SKIN:? There are no skin lesions evident. No objective signs of Raynaud's phenomenon. JOINT EXAM: ?Cervical Spine:.? Full range of motion without pain; no tenderness. Thoracic Spine:.? No scoliosis.? No tenderness on palpation. Lumbar Spine:.? Alignment normal.? Full range of motion without pain, no tenderness. Chest Wall:.? No tenderness, swelling, increased warmth or erythema. Hands:.? Normal pain-free range of motion - mild tenderness to IP joints, no swelling, increased warmth or erythema. Able to make a full fist and has a good server software engineer strength. Wrists:.? Normal pain-free range of motion without tenderness, swelling, increased warmth or erythema. Elbows:. Normal pain-free range of motion, mild tenderness at bilateral lateral epicondyle, no swelling, increased warmth or erythema. Shoulders:.?? Moderate tenderness, weakness, no swelling, increased warmth or erythema. Unable to lift left shoulder past breast. marked tenderness at tendons Hips:.? limited range of motion with pain. Trochanteric tenderness, gluteal tenderness Hip bursa:.? Tenderness to trochanteric area Left > right, 9/10 Left piriformis muscle tenderness Knees:.??Quad strength 3/5 right, 2/5 left. Bilateral limited range of motion with tenderness, mild swelling, no increased warmth or erythema.? There is mild effusion Ankles:.? Normal range of motion with mild pain. tenderness to bilateral achilles, no swelling, increased warmth or erythema. Feet:.? Normal range of motion. moderate tenderness across metatarsals, trace swelling to dorsum, no increased warmth or erythema. Tender points:? No tenderness to digital palpation at the occiput, second rib; Tender trapezius, lateral epicondyle, knees, greater trochanter and gluteal area bilaterally. Assessment & Plan Assessment & Plan (1) Joint pain in both hands: Code(s): M25.541 - Pain in joints of right hand; M25.542 - Pain in joints of left hand (2) Joint pain in fingers of both hands: Code(s): M25.541 - Pain in joints of right hand; M25.542 - Pain in joints of left hand (3) Bilateral knee pain: Code(s): M25.561 - Pain in right knee; M25.562 - Pain in left knee Qualifiers: Chronicity: chronic Qualified Code(s): M25.561 - Pain in right knee; M25.562 - Pain in left knee; G89.29 - Other chronic pain (4) Weakness of both lower extremities: Code(s): R29.898 - Other symptoms and signs involving the musculoskeletal system (5) Weakness of left upper extremity: Code(s): R29.898 - Other symptoms and signs involving the musculoskeletal system (6) Pes anserine bursitis: Code(s): M70.50 - Other bursitis of knee, unspecified knee (7) Trochanteric bursitis of left hip: Code(s): M70.62 - Trochanteric bursitis, left hip (8) Osteoarthritis of left knee: Code(s): M17.12 - Unilateral primary osteoarthritis, left knee Qualifiers: Osteoarthritis type: primary Qualified Code(s): M17.12 - Unilateral primary osteoarthritis, left knee (9) Calcific tendinitis of left shoulder: Code(s): M75.32 - Calcific tendinitis of left shoulder Plan: Prior: An in dept review of the images over the last 3 years, shows that there is progression in the calcific tendinitis of several joints, most severely in the the left shoulder. Lifting the left arm causes the patient much pain, to the point of inferred weakness. Moderate enthesitis in both Achilles and moderate calcaneal spurs are also present along with hypertrophic changes in her foot - this clinically correlates. One wonders with such prevalence of enthesitis, would PsA, be reasonable to consider. However, Calcific tendonitis can also be prevalent in T2DM and patient has long standing history. She did receive a steroid injection to the left shoulder, but denied relief, she has an appt to follow-up with Pain Management (PM). There is much overlap going on with her care. I see where PM (11/17/22 visit) has referred her to PT - Patient states she was not aware. I also have referred her to PT referral. (10) Primary osteoarthritis, left shoulder: Code(s): M19.012 - Primary osteoarthritis, left shoulder Plan Ms. Garcia 67 yoF returns for f/u. Except for her left knee, her areas of pain remains consistent as at last visit. She continue to demonstrate more weakness with the left arm. #Weakness of Extremities: left upper arm weakness, and weakness of lower extremities. On PE she does have a good strong grasp in the right hand, 4/5 but at 2/5 on the left. Patient finds that she has to use a walker for support when she walks. She also difficulty sitting and standing from the toilet and would like a toilet seat to help her with that. She is concerned that she is losing her independence and is afraid she will end up like her brother whom she says has muscular dystrophy and is unable to keep himself upright and had to be strapped and harnessed to be held upright. On PE her strength testing against my resistance was at best 2 to 3/5, left sides weaker than the right. Significant weakness to the she left shoulder where she cannot lift her left arm past her breast. Patient says she was evaluated by Orthopedic and had received trigger point injection without improvement but she has to follow-up. I still think patient will benefit from physical therapy for strengthening. Per patient, she was not called for PT. She does want to do it so I will look into this again. I reminded patient that initially physical therapy will not seem comfortable but if she sticks to it she will see some benefit. I also encouraged that she continues to do the exercises at home. #Bursitis/Knee pain/OA: Left knee improved with corticosteroid injection at 01/2023 visit. #Calcific Tendinitis Left Shoulder. Decreased ROM and pain on Palpation. Will inject today with corticosteroids. Discussed with patient to rest the shoulder from exertion for the next 2 days. I also demonstrated some recommended wall exercises for her left shoulder. Next visit in 3 months to assess progress with PT I spent over 35 minutes examining patient, reviewing patient records and diagnostics, and documenting. Orders: Orders C Reactive Protein 4 Months M19.012 - Primary osteoarthritis, left shoulder, M75.32 - Calcific tendinitis of left shoulder Erythrocyte Sedimentation Rate 4 Months M19.012 - Primary osteoarthritis, left shoulder, M75.32 - Calcific tendinitis of left shoulder Complete Blood Count Auto Diff 4 Months M19.012 - Primary osteoarthritis, left shoulder, M75.32 - Calcific tendinitis of left shoulder, Z79.899 - Other fpc (current) drug therapy Coding Level of Care Code Est Pt Level 3 (68858) Diagnoses Joint pain in both hands M25.541; M25.542 Joint pain in fingers of both hands M25.541; M25.542 Chronic pain of both knees M25.561; M25.562; G89.29 Chronicity: chronic Weakness of both lower extremities R29.898 Weakness of left upper extremity R29.898 Pes anserine bursitis M70.50 Trochanteric bursitis of left hip M70.62 Primary osteoarthritis of left knee M17.12 Osteoarthritis type: primary Calcific tendinitis of left shoulder M75.32 Primary osteoarthritis, left shoulder M19.012
== END 2023-04-21 11:12 | disposition home or self-care (01) ==
PROVIDERS: PCP Internal Medicine; Visit Provider Nurse Practitioner Family
DX: M25.541 Pain in joints of right hand (principal); M25.542 Pain in joints of left hand; M25.561 Pain in right knee; M25.562 Pain in left knee; G89.29 Other chronic pain; R29.898 Other symptoms and signs involving the musculoskeletal system; M70.50 Other bursitis of knee, unspecified knee; M70.62 Trochanteric bursitis, left hip; M17.12 Unilateral primary osteoarthritis, left knee; M75.32 Calcific tendinitis of left shoulder; M19.012 Primary osteoarthritis, left shoulder
CPT/HCPCS: 99213

== ENCOUNTER → 2023-04-21 10:25 | Outpatient (BNVA) | payer MEDICARE, MEDICAID, SELFPAY | PROVIDERS: PCP Internal Medicine; Visit Provider Nurse Practitioner Family | DX: M25.541 Pain in joints of right hand (principal); M25.542 Pain in joints of left hand; M25.561 Pain in right knee; M25.562 Pain in left knee; M70.50 Other bursitis of knee, unspecified knee; M70.62 Trochanteric bursitis, left hip; M17.12 Unilateral primary osteoarthritis, left knee; M75.32 Calcific tendinitis of left shoulder; M19.012 Primary osteoarthritis, left shoulder; G89.29 Other chronic pain; R29.898 Other symptoms and signs involving the musculoskeletal system | CPT/HCPCS: 99212 ==

== ENCOUNTER 2023-05-14 11:35 | Outpatient (AMB) | payer MEDICARE, MEDICAID, SELFPAY ==
[2023-05-14 11:39] VITALS: BP 103/56; PULSE 70; BMI 41.0
--- NOTE | 2023-05-14 11:39 | A.OFFVIS_ITS ---
Intake Vital Signs 05/14/23 11:39 Height 5 ft 3 in Weight 231 lb 7.766 oz BMI 41.0 BP 103/56 L Blood Pressure Location Rt brachial Position Sitting Pulse 70 Intake Visit Reasons: Follow up Intake Note: Patient presents to in office visit today in follow up of [facility]IC. CC: Patient reports doing well, she denies having any new GI symptoms. 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 Accompanied by: Self / Same As Patient Allergies penicillin G Allergy (Severe, Verified 05/14/23 11:49) Itching latex Allergy (Intermediate, Verified 05/14/23 11:49) Unknown nitrofurantoin Allergy (Intermediate, Verified 05/14/23 11:49) itching and redness (in the legs) HPI Follow up HPI Details Assessment & Plan (1) Diabetic gastroparesis: Code(s): E11.43 - Type 2 diabetes mellitus with diabetic autonomic (poly)neuropathy; K31.84 - Gastroparesis (2) GERD (gastroesophageal reflux diseas e): Code(s): K21.9 - Gastro-esophageal reflux disease without esophagitis Qualifiers: Esophagitis presence: without esophagitis Qualified Code(s): K21.9 - Gastro-esophageal reflux disease without esophagitis (3) Chronic idiopathic constipation: Code(s): K59.04 - Chronic idiopathic constipation (4) Right sided abdominal pain: Code(s): R10.9 - Unspecified abdominal pain Plan ZAMBIAN #Evette and Last Her right-sided abdominal pain is somewhat less after her colonoscopy she thinks this may be because she ?cleaned out. ? However it does continue. We reviewed the x-rays which does show significant disease and spondylosis of both the thoracic and lumbar spines. I used a diagram to explain radicular pain to her and how I am trying to figure out if her pain is caused by bowel spasm or by a pinched nerve in thoracic spine. She has not yet tried the dicyclomine could she was confused about the dosing which we reviewed today. I explained that this is a test to try to tease out where the pain is coming from. She also complains of pain that radiates down her legs accompanied by cramping especially at night. She was supposed to be referred to physical therapy by both her director enterprise systems and her primary but they never called her. I checked the referral the computer and it did not specify a provider so likely it was stuck in Q. I changed to our provider in [place] and hopefully she will be able to contact them as I gave her the phone number. He continues on her Linzess in her Dexilant and the seem to be controlling her constipation and her GERD well. At this point I encouraged her to try the dicyclomine and I will see her back in 8 weeks. She is agreeable to this plan. Orders: Referrals Physical Medicine and Rehabilitation Referral M25.511 - Pain in right shoulder Medications: Discontinued pantoprazole (Prot noé) Discontin ued Reason: Insur rajseh Denied 40 mg PO DAILY 20 tabs 0RF TODAY'S VISIT ZAMBIAN #evette Acuña He continues on her Linzess in her Dexilant and the seem to be controlling her constipation and her GERD well. She is using the bentyl tid which is fine. With this, she also says that she had too many BM's on the 10mg reglan, she would prefer the 5mg so we will switch. She is satisfied now with her GI regimen. ROV 6 m os. [facility] Medical History (Updated 05/25/23 @ 12:36 by Angelo Hoffmann MD) Chest pain Calcific tendinitis of left shoulder Weakness of left upper extremity Weakness of both lower extremities Joint pain in fingers of both hands Joint pain in both hands Bilateral knee pain Vitamin B12 deficiency Bilateral ankle pain Rash Right foot pain Medicare annual wellness visit, subsequent Cervical cancer screening Bronchopneumonia Chronic low back pain Bilateral foot pain Bilateral hip pain Annual physical exam Stool incontinence Hyperlipidemia LDL goal <70 Bilateral hip pain Fibromyalgia Chronic bronchitis Vitamin D deficiency Post-thoracotomy pain syndrome COPD (chronic obstructive pulmonary disease) Depression Anxiety Type 2 diabetes mellitus with diabetic polyneuropathy Pulmonary nodules Allergic rhinitis GERD (gastroesophageal reflux disease) Morbid obesity with BMI of 40.0-44.9, adult Asthma Obstructive sleep apnea Lumbar degenerative disc disease Carcinoid tumor Coronary artery disease Benign essential hypertension Type 2 diabetes mellitus with hyperglycemia, with long-term current use of insulin Surgical History History of colonoscopy (~12/2013) History of tubal ligation History of lung biopsy (~07/2016) History of esophagogastroduodenoscopy (EGD) (~10/2011) History of lobectomy of lung (~08/2016) History of rectal sphincterotomy (~11/2013) History of cardiac cath (~07/2018) Family History Father Stroke Hypertension Diabetes Mother Diabetes Hypertension Other Arthritis Lupus Social History Household Members: Spouse Housing: Apartment Alcohol intake: never Patient Tobacco Use Status: Former Tobacco user Tobacco use type: Cigarette e-Cigarette/Vaping Use: Never Used Second Hand Smoke Exposure: Yes service: No Current occupational status: disabled Cognitive needs: No Hearing needs: No Vision needs: Yes Review of Systems Const Denies fatigue, Denies fever(s), Denies night sweats, Denies poor appetite and Denies weight loss Eyes Details: glasses Reports requires corrective lenses ENT Reports Normal hearing present, Denies dental pain, Denies dysphagia, Denies hearing loss, Denies mouth pain, Denies odynophagia, Denies throat swelling, Denies tongue swelling and Reports other (Dentition adequate) Card Reports no additional complaints Resp Reports no additional complaints GI Details: Denies abdominal pain, Denies melena, Denies bloating, Denies hematochezia, Reports constipation, Denies GI cramping, Denies dysphagia, Denies excessive flatus, Reports early satiety, Reports heartburn, Denies diarrhea, Denies nausea, Denies odynophagia, Denies vomiting and Denies hematemesis Skin/Breast Denies pruritus, Denies lesions, Denies rash and Denies jaundice Neuro Reports Normal hearing present and Denies Abnormal speech present Endo Denies fatigue Aller/Immun Denies throat swelling and Denies tongue swelling Physical Exam Vital Signs: Last Vital Signs Pulse 70 05/14/23 11:39 BP 103/56 L 05/14/23 11:39 BMI result Body Mass Index 41.0 Const General: cooperative, no acute distress, well developed and well groomed Nutritional Appearance: well nourished and obese morbidly obese Orientation/consciousness: oriented to person, oriented to place and oriented to time Limitations: language barrier HEENT Head: Yes normocephalic and Yes atraumatic Eyes General: appearance normal, both eyes and all related structures Pupils: Equal, round and reactive pupils present Neck Neck: Yes normal visual inspection and Yes no lymphadenopathy Thyroid: Thyroid normal Resp Effort & Inspection: normal respiratory effort and able to speak in complete sentences Auscultation: clear to auscultation bilaterally Cardio Rate: regular rate Rhythm: regular rhythm Heart sounds: Normal, physiologic split S2 sound present Peripheral pulses: radial pulses present and posterior tibial pulses present GI Inspection: No distended, Yes Abdominal panniculus present and Yes obesity Palpation (GI): Soft to palpation, nontender, no guarding, not rigid and No hepatosplenomegaly present Percussion: Yes normal to percussion Auscultation: normal bowel sounds Rectal Exam - Female: deferred Skin General skin exam: no rashes or lesions noted, turgor normal, skin not dry, no jaundice, No spider nevi and no striae Rashes: no rashes Nails: normal Neuro General: oriented to person, oriented to place and oriented to time Cranial nerves: Yes Equal, round and reactive pupils present and Yes Normal h earing present Speech: No Abnormal speech present Extrem General: Yes normal to inspection, No clubbing, No cyanosis and No edema Psych Appearance: grossly normal and well kempt Mental Status: mental status grossly normal Speech and movement: Normal speech and movement present Affect: normal affect Attitude: cooperative Thought process: Normal thought process present and not confabulating Thought content: Normal thought content present Insight: Limited insight present (Psych) Judgement: Limited judgement present (Psych) Assessment & Plan Assessment & Plan (1) Diabetic gastroparesis: Code(s): E11.43 - Type 2 diabetes mellitus with diabetic autonomic (poly)neuropathy; K31.84 - Gastroparesis (2) Chronic idiopathic constipation: Code(s): K59.04 - Chronic idiopathic constipation (3) GERD (gastroesophageal reflux disease): Code(s): K21.9 - Gastro-esophageal reflux disease without esophagitis Qualifiers: Esophagitis presence: without esophagitis Qualified Code(s): K21.9 - Gastro-esophageal reflux disease without esophagitis Plan ZAMBIAN #evette Live He continues on her Linzess in her Dexilant and the seem to be controlling her constipation and her GERD well. She is using the bentyl tid which is fine. With this, she also says that she had too many BM's on the 10mg reglan, she would prefer the 5mg so we will switch. She is satisfied now with her GI regimen. YOGI 6 m os. Medications: Changed From dicyclomine take 2 tabs qhs and 1 tab tid prn orally 4 times a day; 90 days 180 tabs 2RF R10.9 - Unspecified abdominal pain To dicyclomine 20 mg PO QID 360 tabs 2RF 90 days R10.9 - Unspecified abdominal pain Refilled dexlansoprazole 60 mg PO DAILY 90 caps 1RF K59.04 - Chronic idiopathic constipation linaclotide (Linzess) 72 mcg PO QAM 30 caps 6RF K52.1 - Toxic gastroenteritis and colitis, K59.04 - Chronic idiopathic constipation Discontinued metoclopramide HCl Discontinued Reason: Doctor's Order 10 mg PO QIDACHS 120 tabs 6RF E11.43 - Type 2 diabetes mellitus with diabetic autonomic (poly)neuropathy, K31.84 - Gastroparesis, R11.2 - Nausea with vomiting, unspecified Resumed metoclopramide HCl (Reglan) 5 mg PO QIDACHS 120 tabs 6RF Coding Level of Care Code Est Pt Level 3 (96180) Diagnoses Diabetic gastroparesis E11.43; K31.84 Chronic idiopathic constipation K59.04 Gastroesophageal reflux disease without esophagitis K21.9 Esophagitis presence: without esophagitis
== END 2023-05-14 12:34 | disposition home or self-care (01) ==
PROVIDERS: PCP Internal Medicine; Visit Provider Nurse Practitioner
DX: E11.43 Type 2 diabetes mellitus with diabetic autonomic (poly)neuropathy (principal); K31.84 Gastroparesis; K59.04 Chronic idiopathic constipation; K21.9 Gastro-esophageal reflux disease without esophagitis
CPT/HCPCS: 99213

== ENCOUNTER → 2023-05-14 11:35 | Outpatient (BNVA) | payer MEDICARE, MEDICAID, SELFPAY | PROVIDERS: PCP Internal Medicine; Visit Provider Nurse Practitioner | DX: E11.43 Type 2 diabetes mellitus with diabetic autonomic (poly)neuropathy (principal); K31.84 Gastroparesis; K59.04 Chronic idiopathic constipation; K21.9 Gastro-esophageal reflux disease without esophagitis | CPT/HCPCS: 99212 ==

== ENCOUNTER 2023-05-27 11:27 | Outpatient (REF) | payer MEDICARE, MEDICAID, SELFPAY ==
--- NOTE | ~2023-05-27 | XR_ITS ---
EXAMINATION: XR CHEST CLINICAL INFORMATION: Chest pain on breathing. Status post right medial lobectomy. COMPARISON: Thoracic spine 01/27/2023, chest CT 10/16/2022, chest radiograph 07/29/2022. TECHNIQUE: 2 views of the chest were obtained. FINDINGS: There is no gross pneumothorax. Heart size is normal. Advanced multilevel degenerative changes in the thoracic spine with dextroscoliosis. Redemonstration of bilateral perihilar bronchial wall thickening characteristic of airways disease. No new focal consolidation. No gross pleural effusion. XR/XR chest 2V IMPRESSION: Redemonstration of bilateral perihilar bronchial wall thickening characteristic of airways disease. No new focal consolidation.
== END 2023-05-27 11:28 | disposition home or self-care (01) ==
LOC: HO.XRAY 11:27
PROVIDERS: Visit Provider Hospitalist
DX: R07.1 Chest pain on breathing (principal)
CPT/HCPCS: 71046

== ENCOUNTER 2023-06-17 11:57 | Emergency (ER) | payer MEDICARE, MEDICAID, SELFPAY ==
--- NOTE | ~2023-06-17 | XR_ITS ---
EXAMINATION: LEFT SHOULDER, LEFT HIP, LEFT KNEE CLINICAL INFORMATION: Fall with pain COMPARISON: Left knee 12/28/2022, CT chest 10/16/2022 TECHNIQUE: 3 views left shoulder, 4 views left knee, single view pelvis with 2 additional views left hip FINDINGS: Left shoulder: Marked degenerative changes are present in the shoulder at the AC joint and at the inferior glenohumeral humeral joint. Bulky calcifications are present in the supraspinatus tendon. Degenerative changes are noted at the AC joint. No fractures or dislocations. Left hip: Single view pelvis and left hip films show degenerative changes in the visualized lumbosacral spine. Degenerative changes are seen in both hips, with slightly more joint space narrowing superiorly on the left. No fractures, dislocations or bony destructive lesions. Left knee: Marked biconvex departmental degenerative changes are seen with relative sparing of the lateral compartment. There is narrowing of the medial and patellofemoral compartments with sclerosis and osteophytes. No chondrocalcinosis is seen. No significant joint effusion is present. XR/XR hip LT min 2V IMPRESSION: 1. No evidence of an acute osseous injury. 2. Degenerative changes in the left shoulder, left hip and left knee as described above.
--- NOTE | ~2023-06-17 | XR_ITS ---
EXAMINATION: LEFT SHOULDER, LEFT HIP, LEFT KNEE CLINICAL INFORMATION: Fall with pain COMPARISON: Left knee 12/28/2022, CT chest 10/16/2022 TECHNIQUE: 3 views left shoulder, 4 views left knee, single view pelvis with 2 additional views left hip FINDINGS: Left shoulder: Marked degenerative changes are present in the shoulder at the AC joint and at the inferior glenohumeral humeral joint. Bulky calcifications are present in the supraspinatus tendon. Degenerative changes are noted at the AC joint. No fractures or dislocations. Left hip: Single view pelvis and left hip films show degenerative changes in the visualized lumbosacral spine. Degenerative changes are seen in both hips, with slightly more joint space narrowing superiorly on the left. No fractures, dislocations or bony destructive lesions. Left knee: Marked biconvex departmental degenerative changes are seen with relative sparing of the lateral compartment. There is narrowing of the medial and patellofemoral compartments with sclerosis and osteophytes. No chondrocalcinosis is seen. No significant joint effusion is present. XR/XR knee LT 4V IMPRESSION: 1. No evidence of an acute osseous injury. 2. Degenerative changes in the left shoulder, left hip and left knee as described above.
--- NOTE | ~2023-06-17 | XR_ITS ---
EXAMINATION: LEFT SHOULDER, LEFT HIP, LEFT KNEE CLINICAL INFORMATION: Fall with pain COMPARISON: Left knee 12/28/2022, CT chest 10/16/2022 TECHNIQUE: 3 views left shoulder, 4 views left knee, single view pelvis with 2 additional views left hip FINDINGS: Left shoulder: Marked degenerative changes are present in the shoulder at the AC joint and at the inferior glenohumeral humeral joint. Bulky calcifications are present in the supraspinatus tendon. Degenerative changes are noted at the AC joint. No fractures or dislocations. Left hip: Single view pelvis and left hip films show degenerative changes in the visualized lumbosacral spine. Degenerative changes are seen in both hips, with slightly more joint space narrowing superiorly on the left. No fractures, dislocations or bony destructive lesions. Left knee: Marked biconvex departmental degenerative changes are seen with relative sparing of the lateral compartment. There is narrowing of the medial and patellofemoral compartments with sclerosis and osteophytes. No chondrocalcinosis is seen. No significant joint effusion is present. XR/XR shoulder LT min 2V IMPRESSION: 1. No evidence of an acute osseous injury. 2. Degenerative changes in the left shoulder, left hip and left knee as described above.
--- NOTE | 2023-06-17 12:12 | ED_ITS ---
HPI - Fall General Chief Complaint: Fall Stated Complaint: HIP & L SHOUDER PAIN S/P FALL T-1 PER EMS Source: patient, old records reviewed and pharmaceutical service representative Mode of arrival: EMS Limitations: no limitations History of Present Illness HPI Narrative: 67 yo female with PMH of DM, polyarthralgia, arthritis, chronic pain, HTN, ILDEFONSO, HLD, asthma, GERD, carcinoid s/p r middle lobectomy [address] surveillance by Dr. Mckinnon not on blood thinners here with c/o fall yesterday AM tripped outside landed on L shoulder and L hip no headstrike and no neck pain. Seemed okay but L shoulder pain has progressed and worsened. Has no neck pain removed her own collar. States she cannot lift her L shoulder at this time due to pain. No numbness, weakness. MD complaint: fall Onset (ago): hour(s) (24) Fall from: standing Fall witnessed: yes, by family Place fall occurred: street Loss of consciousness: none Prolonged down time: no Symptoms prior to fall: none Context: tripped/slipped Location of injury: other (shoulder, hip, knee) Location of injury - extremities: left: shoulder Severity: severe Quality: throbbing Associated symptoms (after fall): denies Related Data Home Medications ?Medication ?Instructions ?Recorded ?Confirmed escitalopram oxalate 5 mg tablet 5 mg PO DAILY 01/22/22 04/13/23 memantine 10 mg tablet 10 mg PO BID 01/22/22 04/13/23 furosemide 20 mg tablet 20 mg PO DAILY 01/27/23 04/13/23 nebulizers 03/25/23 04/13/23 Previous Rx's ?Medication ?Instructions ?Recorded LIGHTWEIGHT WALKER WITH SEAT #1 ea 09/05/20 nystatin 100,000 unit/gram topical 1 appl topical TID #30 grams 10/04/20 powder ROLLATOR with SEAT #1 ea 03/03/21 alcohol swabs 1 pad topical TID #100 pad 03/04/21 amitriptyline 25 mg tablet 25 mg PO BEDTIME #90 tabs 03/09/21 blood pressure monitor #1 ea 09/12/21 pen needle, diabetic 32 gauge x #100 ea 01/09/22 5/32 (BD Ultra-Fine Cindy Pen Needle) ADULT BRIEFS (size XL) #100 ea 06/03/22 ADULT PULL-UPS (size XL) #100 ea 06/03/22 lancets 28 gauge (FreeStyle #100 ea 06/08/22 Lancets) lancets 28 gauge (FreeStyle #300 ea 06/09/22 Lancets) loratadine 10 mg tablet 10 mg PO DAILY 90 days #90 tabs 06/26/22 lidocaine 5 % topical patch 1 patch topical DAILY 30 days #30 08/03/22 (Lidoderm) ea FOUR-PRONGED CANE #1 ea 08/06/22 blood sugar diagnostic (OneTouch #100 ea 08/07/22 Verio test strips) blood-glucose meter #1 ea 08/07/22 lancets 30 gauge (OneTouch Delica #100 ea 08/07/22 Plus Lancet) lancets 33 gauge (OneTouch Delica #100 ea 08/07/22 Lancets) ibuprofen 800 mg tablet 800 mg PO TID PRN for pain #90 tabs 09/01/22 metformin 500 mg tablet See Rx Instructions PO .COMPLEX 30 09/05/22 days #90 tabs glucose 4 gram chewable tablet 12 g (3 x 4 gram) PO Q15M for 10/05/22 hypoglycemia #60 tabs benzonatate 200 mg capsule 200 mg PO BID PRN cough 30 days 11/05/22 #30 caps duloxetine 60 mg capsule,delayed 60 mg PO DAILY #90 caps 11/13/22 release hydrochlorothiazide 25 mg tablet 25 mg PO DAILY 90 days #90 tabs 11/13/22 Shower Chair #1 ea 11/24/22 insulin glargine 100 unit/mL (3 20 unit (0.2 mL) subcut QAM #15 mL 12/01/22 mL) subcutaneous pen (Lantus Solostar U-100 Insulin) pen needle, diabetic 32 gauge x #50 ea 12/01/22 5/32 (Comfort EZ Pen Wilbur) fluticasone propionate 220 1 puff PO BID #12 ea 12/07/22 mcg/actuation HFA aerosol inhaler (Flovent HFA) fluticasone propionate 50 2 spray intranasal DAILY 30 days 12/07/22 mcg/actuation nasal #48 mL spray,suspension cholecalciferol (vitamin D3) 50 50 mcg PO DAILY 90 days #90 caps 12/14/22 mcg (2,000 unit) capsule valacyclovir 500 mg tablet 500 mg PO BID #14 tabs 12/22/22 metoclopramide HCl 5 mg tablet 5 mg PO QIDACHS #120 tabs 01/01/23 (Reglan) blood sugar diagnostic (OneTouch #100 ea 01/04/23 Verio test strips) blood-glucose meter (OneTouch #1 ea 01/04/23 Verio Flex Meter) cyanocobalamin (vitamin B-12) 1,000 mcg PO DAILY 90 days #90 tabs 01/13/23 1,000 mcg tablet albuterol sulfate 90 mcg/actuation 2 puff inhalation QID PRN 01/14/23 aerosol inhaler bronchospasm #8.5 grams atorvastatin 40 mg tablet 40 mg PO DAILY #90 tabs 01/14/23 ipratropium 0.5 mg-albuterol 3 mg 3 ml inhalation QID PRN shortness 01/14/23 (2.5 mg base)/3 mL nebulization of breath #180 mL soln DISPOSABLE WIPES #100 ea 02/22/23 valsartan 320 mg tablet 320 mg PO DAILY #90 tabs 03/04/23 albuterol sulfate 2.5 mg/3 mL 2.5 mg (3 mL) inhalation Q4-6H PRN 03/12/23 (0.083 %) solution for nebulization shortness of breath or wheezing #75 mL tizanidine 4 mg tablet 4 mg PO TID PRN muscle spasticity 03/24/23 #90 tabs azithromycin 250 mg tablet See Rx Instructions PO .COMPLEX #6 04/06/23 tabs doxycycline hyclate 100 mg capsule 100 mg PO BID 10 days #20 caps 04/13/23 flash glucose scanning reader #1 ea 04/13/23 (FreeStyle Mary Ann [employer]) flash glucose sensor (FreeStyle #2 ea 04/13/23 Mary Ann 2 Sensor kit) prednisone 10 mg tablet See Rx Instructions PO DAILY 10 04/13/23 days #15 tabs tiotropium 2.5 mcg-olodaterol 2.5 2 puff inhalation DAILY #4 grams 04/26/23 mcg/actuation mist for inhalation (Stiolto Respimat) aspirin 81 mg tablet,delayed 81 mg PO DAILY 90 days #90 tabs 04/27/23 release dexlansoprazole 60 mg 60 mg PO DAILY #90 caps 05/14/23 capsule,biphase delayed release dicyclomine 20 mg tablet 20 mg PO QID 90 days #360 tabs 05/14/23 linaclotide 72 mcg capsule 72 mcg PO QAM #30 caps 05/14/23 (Linzess) diclofenac sodium 1 % topical gel 2 g topical QID PRN pain #100 grams 05/18/23 (Arthritis Pain (diclofenac)) metoprolol succinate 50 mg 50 mg PO DAILY #90 tabs 05/18/23 tablet,extended release 24 hr montelukast 10 mg tablet 10 mg PO BEDTIME #90 tabs 05/18/23 sertraline 50 mg tablet 50 mg PO DAILY #30 tabs 05/25/23 tramadol 50 mg tablet 50 mg PO TID PRN pain 30 days #90 05/25/23 tabs lorazepam 1 mg tablet 1 mg PO BID-TID PRN anxiety 30 05/26/23 days #45 tabs umeclidinium 62.5 mcg-vilanterol 1 inh inhalation DAILY #60 ea 06/01/23 25 mcg/actuation powdr for inhalation (Anoro Ellipta) pregabalin 150 mg capsule 150 mg PO Q8H 30 days #90 caps 06/02/23 dulaglutide 3 mg/0.5 mL 3 mg (0.5 mL) subcut QWEEK #2 mL 06/10/23 subcutaneous [facility] oxycodone 5 mg tablet 5 mg PO TID PRN pain #14 tabs 06/17/23 Allergies Allergy/AdvReac Type Severity Reaction Status Date / Time penicillin G Allergy Severe Itching Verified 06/17/23 12:23 latex Allergy Intermediate Itching Verified 06/17/23 12:23 nitrofurantoin Allergy Intermediate itching Verified 06/17/23 12:23 and redness (in the legs) Review of Systems Review of Systems: Constitutional : No Fever, No Chills ENT/Mouth : No Ear Pain, No Hoarseness, No sore throat Eyes: No Eye Pain, No Swelling, No Redness, No Foreign Body Cardiovascular : No Chest Pain, No SOB Respiratory : No Cough, No Dyspnea Gastrointestinal : No Nausea, No Vomiting, No Diarrhea, No abdominal Pain Genitourinary : No Dysuria, No Hematuria Musculoskeletal : positive joint pain, No Myalgias, No Joint Swelling Skin : No Skin lacerations, No rash Neuro : No Weakness, No Numbness, No Loss of Consciousness, No Dizziness, No Headache Psych : No Anxiety/Panic, No Depression All other systems reviewed and are negative [facility] Past Medical History Attestation statement: The following information was validated with the patient. Source: old records reviewed Medical History Chest pain Calcific tendinitis of left shoulder Weakness of left upper extremity Weakness of both lower extremities Joint pain in fingers of both hands Joint pain in both hands Bilateral knee pain Vitamin B12 deficiency Bilateral ankle pain Rash Right foot pain Medicare annual wellness visit, subsequent Cervical cancer screening Bronchopneumonia Chronic low back pain Bilateral foot pain Bilateral hip pain Annual physical exam Stool incontinence Hyperlipidemia LDL goal <70 Bilateral hip pain Fibromyalgia Chronic bronchitis Vitamin D deficiency Post-thoracotomy pain syndrome COPD (chronic obstructive pulmonary disease) Depression Anxiety Type 2 diabetes mellitus with diabetic polyneuropathy Pulmonary nodules Allergic rhinitis GERD (gastroesophageal reflux disease) Morbid obesity with BMI of 40.0-44.9, adult Asthma Obstructive sleep apnea Lumbar degenerative disc disease Carcinoid tumor Coronary artery disease Benign essential hypertension Type 2 diabetes mellitus with hyperglycemia, with long-term current use of insulin Surgical History History of colonoscopy (~12/2013) History of tubal ligation History of lung biopsy (~07/2016) History of esophagogastroduodenoscopy (EGD) (~10/2011) History of lobectomy of lung (~08/2016) History of rectal sphincterotomy (~11/2013) History of cardiac cath (~07/2018) Family History Family History Father Stroke Hypertension Diabetes Mother Diabetes Hypertension Other Arthritis Lupus Social History Social History Household Members: Spouse Housing: Apartment Alcohol intake: never Patient Tobacco Use Status: Former Tobacco user Tobacco use type: Cigarette Smoked in Last 30 Days: No e-Cigarette/Vaping Use: Never Used Second Hand Smoke Exposure: Yes Use of substances other than those prescribed or required for medical reasons: No Advance Directives: No Advance Directives Information Provided: Yes service: No Current occupational status: disabled Cognitive needs: No Hearing needs: No Vision needs: Yes Physical Exam Vital Signs: Vital Signs: Last Vital Signs Temp 97.7 F 06/17/23 12:18 Pulse 66 06/17/23 14:09 Resp 18 06/17/23 12:24 BP 143/73 H 06/17/23 14:09 Pulse Ox 96 06/17/23 14:09 O2 Del Method Room Air 06/17/23 14:09 BMI result Body Mass Index 40.7 Appearance: Alert. Oriented X3. No acute distress. Eyes: Pupils equal, round and reactive to light. ENT: Pharynx normal. atraumatic Neck: Normal inspection. Neck supple. no midline ttp no pain with ROM CVS: Normal heart rate and rhythm. Pulses normal. Respiratory: No respiratory distress. Breath sounds normal. Abdomen: Soft and nontender. no ecchymosis Skin: Skin warm and dry. Normal skin color. Normal skin turgor. Extremities:L shoulder ttp along AC joint distal NV intact, L hip ttp, L knee ttp small contusion noted but normal ROM distal NV intact Neuro: Oriented X 3. No motor deficit. No sensory deficit. Medications Administered Discontinued Medications Generic Name Dose Route Start Last Admin Trade Name Freq PRN Reason Stop Dose Admin Oxycodone HCl 10 mg 06/17/23 12:30 06/17/23 12:38 Oxycodone Hcl Immed Release 5 Mg Tablet PO 06/17/23 12:31 10 mg ONCE ONE Administration Procedures Orthopedic Splinting/Casting Injury #1: Side: left Upper Extremity Injury Location: shoulder Upper Extremity Immobilizer: sling/shoulder immobilizer Additional Comments: NV intact Medical Decision Making Medical Decision Making MDM Narrative: 67 yo female with PMH of DM, polyarthralgia, arthritis, chronic pain, HTN, ILDEFONSO, HLD, asthma, GERD, carcinoid s/p r middle lobectomy [address] surveillance by Dr. Mckinnon not on blood thinners here with c/o L hip, shoulder, knee pain after mechanical fall yesterday. Fall was witnessed by daughter patient had no headstrike has no neck pain and no pain with ROM doubt ICH or cervical spine injury at this time. Will obtain xrays of L shoulder, L hip and L knee. PO pain medications ordered. Differential Diagnosis Differential Diagnoses: The differential diagnosis associated with the pre sentation includes fracture, soft tissue injury, strain, sprain Admission/Observation Consideration of admission/observation: Escalation of care including admission/observation considered at baseline pain controlled stable for DC Lab Data MDM Lab Attestation statement: I reviewed the patient's lab results. Independent Interpretation I performed an independent interpretation of an: Plain X-Ray (no fracture) Radiology Impression Discussion of test interpretation with radiology: I have reviewed the radiologist's reading. Independent Historian Clinical information obtained from an independent historian. History obtained from or confirmed by: EMS and Other (daughter) External Record Review External record reviewed: Inpatient record and Office record Prescription Management I considered prescription management with: Pain Medication Discharge Plan Discharge Clinical Impression: Sprain of left shoulder, Acute pain of left hip, Contusion of knee, left Patient Disposition: Home, Self-Care Instructions: Shoulder Sprain (ED), Arthralgia (ED), Hip Pain (ED) Additional Instructions: return for worsening pain numbness weakness or any other concerns wear sling for 3 days then try to remove it and slowly start to move arm if able to tolerate it Prescriptions: New oxycodone 5 mg tablet 5 mg PO TID PRN (Reason: pain) Qty: 14 0RF Rx Instructions: Partial Fill upon patient request. No Action (DME) LIGHTWEIGHT WALKER WITH SEAT See Rx Instructions .Route .MEDSUPPLY Qty: 1 0RF Rx Instructions: walker with seat nystatin 100,000 unit/gram powder 1 appl topical TID Qty: 30 3RF (DME) ROLLATOR with SEAT See Rx Instructions .Route .MEDSUPPLY Qty: 1 0RF Rx Instructions: As directed alcohol swabs Pads, Medicated 1 pad topical TID Qty: 100 2RF amitriptyline 25 mg tablet 25 mg PO BEDTIME Qty: 90 1RF (DME) pen needle, diabetic [BD Ultra-Fine Cindy Pen Needle] 32 gauge x 5/32 needle See Rx Instructions .ROUTE .MEDSUPPLY Qty: 100 12RF Rx Instructions: twice daily (DME) ADULT BRIEFS (size XL) XL See Rx Instructions .Route .MEDSUPPLY Qty: 100 12RF Rx Instructions: As directed (DME) ADULT PULL-UPS (size XL) XL See Rx Instructions .Route .MEDSUPPLY Qty: 100 12RF Rx Instructions: As directed (DME) lancets [FreeStyle Lancets] 28 gauge misc See Rx Instructions .ROUTE .MEDSUPPLY Qty: 100 0RF Rx Instructions: As directed (DME) lancets [FreeStyle Lancets] 28 gauge misc See Rx Instructions .ROUTE .MEDSUPPLY Qty: 300 3RF Rx Instructions: As directed three time a day loratadine 10 mg tablet 10 mg PO DAILY 90 Days Qty: 90 3RF lidocaine [Lidoderm] 5 % adhesive patch,medicated 1 patch topical DAILY 30 Days Qty: 30 3RF Rx Instructions: leave on most painful area for up to 12 hrs (DME) OneTouch Verio test strips Strip See Rx Instructions .Route Qty: 100 5RF Rx Instructions: As directed tests 4X/day (DME) lancets [OneTouch Delica Plus Lancet] 30 gauge misc See Rx Instructions .Route Qty: 100 4RF Rx Instructions: As directed-tests 4 X/day (DME) blood-glucose meter Misc See Rx Instructions .ROUTE .MEDSUPPLY Qty: 1 0RF Rx Instructions: Three times a day (DME) lancets [OneTouch Delica Lancets] 33 gauge misc See Rx Instructions .ROUTE .MEDSUPPLY Qty: 100 11RF Rx Instructions: Three times a day ibuprofen 800 mg tablet 800 mg PO TID PRN (Reason: for pain) Qty: 90 2RF metformin 500 mg tablet See Rx Instructions PO .COMPLEX 30 Days Qty: 90 5RF Rx Instructions: 1 tablet in the morning and 2 tablets in evening PO; glucose 4 gram tablet,chewable 12 g PO Q15M Qty: 60 2RF (DME) Shower Chair Misc See Rx Instructions .Route Qty: 1 0RF Rx Instructions: As directed Flovent HFA 220 mcg/actuation HFA aerosol inhaler 1 puff PO BID Qty: 12 5RF fluticasone propionate 50 mcg/actuation spray,suspension 2 spray intranasal DAILY 30 Days Qty: 48 11RF cholecalciferol (vitamin D3) 50 mcg (2,000 unit) capsule 50 mcg PO DAILY 90 Days Qty: 90 3RF (DME) OneTouch Verio test strips Strip See Rx Instructions .ROUTE .MEDSUPPLY Qty: 100 11RF Rx Instructions: Three times a day (DME) blood-glucose meter [OneTouch Verio Flex meter] Misc See Rx Instructions .Route Qty: 1 0RF Rx Instructions: As directed trsts 4 X/day ipratropium-albuterol 0.5 mg-3 mg(2.5 mg base)/3 mL solution for nebulization 3 ml inhalation QID PRN (Reason: shortness of breath) Qty: 180 5RF albuterol sulfate 90 mcg/actuation HFA aerosol inhaler 2 puff inhalation QID PRN (Reason: bronchospasm) Qty: 8.5 3RF atorvastatin 40 mg tablet 40 mg PO DAILY Qty: 90 3RF (DME) DISPOSABLE WIPES See Rx Instructions .Route .MEDSUPPLY Qty: 100 12RF Rx Instructions: As directed valsartan 320 mg tablet 320 mg PO DAILY Qty: 90 1RF albuterol sulfate 2.5 mg /3 mL (0.083 %) solution for nebulization 2.5 mg inhalation Q4-6H PRN (Reason: shortness of breath or wheezing) Qty: 75 3RF tizanidine 4 mg tablet 4 mg PO TID PRN (Reason: muscle spasticity) Qty: 90 6RF prednisone 10 mg tablet See Rx Instructions PO DAILY 10 Days Qty: 15 0RF Rx Instructions: PO daily; Take 2 tabs daily x 5 days, then 1 tab x 5 days doxycycline hyclate 100 mg capsule 100 mg PO BID 10 Days Qty: 20 0RF Stiolto Respimat 2.5-2.5 mcg/actuation mist 2 puff inhalation DAILY Qty: 4 11RF aspirin 81 mg tablet,delayed release (DR/EC) 81 mg PO DAILY 90 Days Qty: 90 3RF diclofenac sodium [Arthritis Pain (diclofenac)] 1 % gel 2 g topical QID PRN (Reason: pain) Qty: 100 0RF metoprolol succinate 50 mg tablet extended release 24 hr 50 mg PO DAILY Qty: 90 1RF montelukast 10 mg tablet 10 mg PO BEDTIME Qty: 90 0RF tramadol 50 mg tablet 50 mg PO TID PRN (Reason: pain) 30 Days Qty: 90 0RF sertraline 50 mg tablet 50 mg PO DAILY Qty: 30 1RF lorazepam 1 mg tablet 1 mg PO BID-TID PRN (Reason: anxiety) 30 Days Qty: 45 0RF Rx Instructions: Lorazepam is being prescribed and managed by psychiatry, NOT BY PCP Anoro Ellipta 62.5-25 mcg/actuation blister with device 1 inh inhalation DAILY Qty: 60 6RF pregabalin 150 mg capsule 150 mg PO Q8H 30 Days Qty: 90 0RF Trulicity 3 mg/0.5 mL pen injector 3 mg subcut QWEEK Qty: 2 5RF duloxetine 60 mg capsule,delayed release(DR/EC) 60 mg PO DAILY Qty: 90 3RF hydrochlorothiazide 25 mg tablet 25 mg PO DAILY 90 Days Qty: 90 1RF azithromycin 250 mg tablet See Rx Instructions PO .COMPLEX Qty: 6 0RF Rx Instructions: take 500 mg today (day 1), then 250 mg for 4 days (days 2-5) PO (DME) blood pressure monitor Kit See Rx Instructions .Route Qty: 1 0RF Rx Instructions: As directed (DME) FOUR-PRONGED CANE See Rx Instructions .Route .MEDSUPPLY Qty: 1 0RF Rx Instructions: As directed cyanocobalamin (vitamin B-12) 1,000 mcg tablet 1,000 mcg PO DAILY 90 Days Qty: 90 1RF valacyclovir 500 mg tablet 500 mg PO BID Qty: 14 0RF escitalopram oxalate 5 mg tablet 5 mg PO DAILY memantine 10 mg tablet 10 mg PO BID benzonatate 200 mg capsule 200 mg PO BID PRN (Reason: cough) 30 Days Qty: 30 11RF (DME) nebulizers Misc See Rx Instructions .Route Rx Instructions: As directed metoclopramide HCl [Reglan] 5 mg tablet 5 mg PO QIDACHS Qty: 120 6RF Hold Instructions: Doctor's Order Rx Instructions: provider aware of possible interactions with psych meds and is monitoring furosemide 20 mg tablet 20 mg PO DAILY (DME) FreeStyle [employer] Misc See Rx Instructions .Route Qty: 1 0RF Rx Instructions: As directed (DME) FreeStyle Mary Ann 2 Sensor Kit See Rx Instructions .Route Qty: 2 4RF Rx Instructions: As directed change every 14 days dicyclomine 20 mg tablet 20 mg PO QID 90 Days Qty: 360 2RF Linzess 72 mcg capsule 72 mcg PO QAM Qty: 30 6RF dexlansoprazole 60 mg capsule,biphase delayed releas 60 mg PO DAILY Qty: 90 1RF insulin glargine [Lantus Solostar U-100 Insulin] 100 unit/mL (3 mL) insulin pen 20 unit subcut QAM Qty: 15 5RF (DME) pen needle, diabetic [Comfort EZ Pen Wilbur] 32 gauge x 5/32 needle See Rx Instructions .Route Qty: 50 5RF Rx Instructions: As directed injects once a day Referrals: Leroy Jauregui MD [Primary Care Provider] - (call appointment 1 week) Print Language: Turkmen
[2023-06-17 12:18] VITALS: BP 131/71; BP 142/90; PULSE 75; PULSE 76; RESP 18; TEMP 36.5; O2SAT 96; O2SAT 98; BMI 40.7
[2023-06-17 12:24] VITALS: RESP 18
[2023-06-17] MEDS: oxyCODONE HCl Immed Release 5 MG TABLET 10 MG PO (12:38)
--- NOTE | 2023-06-17 12:40 | PC.NURSE ---
C COLLAR CLEARED BY PROVIDER, PT WAS MEDICATED CHARTED FOR PAIN
[2023-06-17 14:09] VITALS: BP 143/73; PULSE 66; O2SAT 96
[2023-06-17 14:55] VITALS: BP 151/67; PULSE 69; RESP 20; TEMP 36.9; O2SAT 96
[2023-06-17 15:20] VITALS: BP 151/67; PULSE 69; RESP 20; TEMP 36.9; O2SAT 96
== END 2023-06-17 15:21 | disposition home or self-care (01) ==
PROVIDERS: Emergency Provider Emergency Medicine; PCP Internal Medicine
DX: S43.402A Unspecified sprain of left shoulder joint, initial encounter (principal); S80.02XA Contusion of left knee, initial encounter; R10.2 Pelvic and perineal pain; M25.552 Pain in left hip; W01.0XXA Fall on same level from slipping, tripping and stumbling without subsequent striking against object, initial encounter; Y93.9 Activity, unspecified; Y92.9 Unspecified place or not applicable; Y99.8 Other external cause status
CPT/HCPCS: 73030; 73502; 73564; 99283; 99284

== ENCOUNTER 2023-06-21 15:51 | Outpatient (AMB) | payer MEDICARE, MEDICAID, SELFPAY ==
--- NOTE | 2023-06-21 15:51 | MHC.PC.OV ---
Vital Signs 06/21/23 15:52 Height 5 ft 1.42 in Weight 230 lb 4 oz BMI 42.9 BP 128/72 Blood Pressure Location Rt brachial Position Sitting Respiration 15 Pulse 80 Pulse Source Pulse Oximeter Pulse Oximetry (%) 100 Oxygen Delivery Method Room Air Intake Visit Reasons: [facility]/left Shoulder px due to Fall Intake Note: Pt is here for left shoulder pain due to fall on 06/15 and seen at [facility] ED on 06/16-Sprain of left shoulder, Acute pain of left hip, Contusion of knee, left. Vice President Education Required: Yes Vice President Education Language: British Accompanied by: BIOPHARMACEUTICAL REP Allergies penicillin G Allergy (Severe, Verified 06/21/23 16:22) Itching latex Allergy (Intermediate, Verified 06/21/23 16:22) Itching nitrofurantoin Allergy (Intermediate, Verified 06/21/23 16:22) itching and redness (in the legs) Medication List - Last Reconciled 06/21/23 by Leroy Jauregui MD [ADULT BRIEFS (size XL) As directed] [ADULT PULL-UPS (size XL) As directed] albuterol sulfate 90 mcg/actuation 2 puffs inhalation QID PRN albuterol sulfate 2.5 mg (3 mL) inhalation Q4-6H PRN alcohol swabs 1 pad topical TID amitriptyline 25 mg PO BEDTIME aspirin 81 mg PO DAILY 90 days atorvastatin 40 mg PO DAILY azithromycin take 500 mg today (day 1), then 250 mg for 4 days (days 2-5) PO benzonatate 200 mg PO BID PRN 30 days blood pressure monitor As directed blood sugar diagnostic (OneTouch Verio test strips) Three times a day blood sugar diagnostic (OneTouch Verio test strips) As directed tests 4X/day blood-glucose meter Three times a day blood-glucose meter (OneTouch Verio Flex Meter) As directed trsts 4 X/day cholecalciferol (vitamin D3) 50 mcg PO DAILY 90 days cyanocobalamin (vitamin B-12) 1,000 mcg PO DAILY 90 days dexlansoprazole 60 mg PO DAILY diclofenac sodium 1% (Arthritis Pain (diclofenac)) 2 grams topical QID PRN dicyclomine 20 mg PO QID 90 days [DISPOSABLE WIPES As directed] doxycycline hyclate 100 mg PO BID 10 days dulaglutide (Trulicity) 3 mg (0.5 mL) subcut QWEEK duloxetine 60 mg PO DAILY escitalopram oxalate 5 mg PO DAILY flash glucose scanning reader ([place]Style [place] 2 [place]) As directed flash glucose sensor (FreeStyle [place] 2 Sensor kit) As directed change every 14 days fluticasone propionate 220 mcg/actuation (Flovent HFA) 1 puff PO BID fluticasone propionate 50 mcg/actuation 2 sprays intranasal DAILY 30 days [FOUR-PRONGED CANE As directed] furosemide 20 mg PO DAILY glucose 12 grams (3 x 4 gram) PO Q15M hydrochlorothiazide 25 mg PO DAILY 90 days ibuprofen 800 mg PO TID PRN insulin glargine (Lantus Solostar U-100 Insulin) 20 units (0.2 mL) subcut QAM ipratropium-albuterol 0.5 mg-3 mg(2.5 mg base)/3 mL 3 mL inhalation QID PRN lancets (OneTouch Delica Lancets) Three times a day lancets (FreeStyle Lancets) As directed three time a day lancets (OneTouch Delica Plus Lancet) As directed-tests 4 X/day lancets (FreeStyle Lancets) As directed lidocaine 5% (Lidoderm) 1 patch topical DAILY 30 days [LIGHTWEIGHT WALKER WITH SEAT walker with seat] linaclotide (Linzess) 72 mcg PO QAM loratadine 10 mg PO DAILY 90 days lorazepam 1 mg PO BID-TID PRN 30 days memantine 10 mg PO BID metformin 1 tablet in the morning and 2 tablets in evening PO; 30 days metoprolol succinate ER 50 mg PO DAILY montelukast 10 mg PO BEDTIME nebulizers As directed nystatin 1 appl topical TID pen needle, diabetic (BD Ultra-Fine Cindy Pen Needle) twice daily pen needle, diabetic (Comfort EZ Pen [place]) As directed injects once a day prednisone 40 mg (2 x 20 mg) PO DAILY 5 days pregabalin 150 mg PO Q8H 30 days [ROLLATOR with SEAT As directed] sertraline 50 mg PO DAILY Shower Chair As directed tiotropium-olodaterol 2.5-2.5 mcg/actuation (Stiolto Respimat) 2 puffs inhalation DAILY tizanidine 4 mg PO TID PRN tramadol 50 mg PO TID PRN 30 days umeclidinium-vilanterol 62.5-25 mcg/actuation (Anoro Ellipta) 1 inh inhalation DAILY valacyclovir 500 mg PO BID valsartan 320 mg PO DAILY Tobacco use date assessed: 04/06/23 Fall risk assessment: No Falls in past year Last assessed Fall Risk: 06/21/23 Dental Screening Dental Screen Date: 04/06/23 HPI [facility]/left Shoulder px due to Fall HPI Details Patient comes in today complaining of increased pain over her left shoulder, left hip and left knee Recalls that she fell on her left side a few days ago on 06/17/2023 and has been experiencing increased pain over her left side since but especially in her left shoulder Relates that she's had a cortisone injection into her left shoulder a few months ago and would like to know if it is possible for her to get another injection although she recalled that the previous injection did not really help much States that she has also reached out to rheumatology recently but has not yet heard back from them She's had x-rays done on her left shoulder, left hip and left knee done back when she fell - x-rays revealed (+) OA changes in the joints but no acute fractures are noted States that she took her Tramadol earlier today but it has not been helping much lately and would like to know what else she can take for relief at present States that she has been trying to move her left arm and shoulder a little at a time when she can - states that she could not move her left shoulder and arm at all after she fell a few days ago but is now able to wiggle her arm and raise it slightly and will continue to try to move her shoulder joint as much as she can for the next few days Adds that she also recently broke out in an itchy rash over the medial aspect of her left upper arm and tried to apply some Clotrimazole cream a couple of days ago that she felt made her symptoms worse No other acute complaints or symptoms are noted [facility] Medical History Chest pain Calcific tendinitis of left shoulder Weakness of left upper extremity Weakness of both lower extremities Joint pain in fingers of both hands Joint pain in both hands Bilateral knee pain Vitamin B12 deficiency Bilateral ankle pain Rash Right foot pain Medicare annual wellness visit, subsequent Cervical cancer screening Bronchopneumonia Chronic low back pain Bilateral foot pain Bilateral hip pain Annual physical exam Stool incontinence Hyperlipidemia LDL goal <70 Bilateral hip pain Fibromyalgia Chronic bronchitis Vitamin D deficiency Post-thoracotomy pain syndrome COPD (chronic obstructive pulmonary disease) Depression Anxiety Type 2 diabetes mellitus with diabetic polyneuropathy Pulmonary nodules Allergic rhinitis GERD (gastroesophageal reflux disease) Morbid obesity with BMI of 40.0-44.9, adult Asthma Obstructive sleep apnea Lumbar degenerative disc disease Carcinoid tumor Coronary artery disease Benign essential hypertension Type 2 diabetes mellitus with hyperglycemia, with long-term current use of insulin Surgical History History of colonoscopy (~12/2013) History of tubal ligation History of lung biopsy (~07/2016) History of esophagogastroduodenoscopy (EGD) (~10/2011) History of lobectomy of lung (~08/2016) History of rectal sphincterotomy (~11/2013) History of cardiac cath (~07/2018) Family History Father Stroke Hypertension Diabetes Mother Diabetes Hypertension Other Arthritis Lupus Social History Household Members: Spouse Housing: Apartment Alcohol intake: never Patient Tobacco Use Status: Former Tobacco user Tobacco use type: Cigarette e-Cigarette/Vaping Use: Never Used Second Hand Smoke Exposure: Yes service: No Current occupational status: disabled Cognitive needs: No Hearing needs: No Vision needs: Yes Questionnaire Thrive Questionnaire Date Thrive assessed: 04/06/23 EVELINE-7 AMB Questionnaire EEVLINE-7 Date EVELINE - 7 assessed: 04/06/23 Source: Developed by Drs. Jeffrey Chavez, Marj Villatoro, Vaibhav Pagna and colleagues, with an educational norm from [employer]. Review of Systems Const Reports difficulty sleeping, Reports fatigue, Denies fever(s) and Denies headache(s) ENT Denies dysphagia, Denies dizziness, Denies headache(s), Denies odynophagia and Denies sore throat Card Denies chest pain, Denies palpitations and Reports dyspnea on exertion (mild) Resp Denies cough, Reports dyspnea on exertion (mild) and Denies wheezing GI Denies abdominal pain, Denies constipation, Denies dysphagia, Denies heartburn, Reports fecal incontinence, Denies diarrhea, Denies nausea, Denies odynophagia and Denies vomiting Denies difficulty voiding, Denies nocturia, Denies dysuria and Reports urinary incontinence (at times) Musc Details: (+) increased pain over the left shoulder, left hip and left knee since her fall on 06/17/2023 Reports back pain (especially over the right lower back), Reports arthralgias (over the left shoulder - increased lately; also over left hip and left knee) and Reports numbness (in both feet, on and off) Skin/Breast Reports rash (itchy rash over the medial aspect of the left upper arm) Neuro Denies dizziness, Denies headache(s), Reports numbness (in both feet, on and off) and Reports paresthesias (in both feet) Endo Reports fatigue and Denies palpitations Aller/Immun Denies wheezing Physical exam (Primary Care) Vital Signs: Last Vital Signs Pulse 80 06/21/23 15:52 Resp 15 06/21/23 15:52 BP 128/72 06/21/23 15:52 Pulse Ox 100 06/21/23 15:52 Oxygen Delivery Method Room Air 06/21/23 15:52 BMI result Body Mass Index 42.9 Tobacco/Smoking Status: Tobacco use Status Tobacco use date assessed 04/06/23 06/21/23 15:55 Patient Tobacco Use Status Former Tobacco user 06/21/23 15:55 Tobacco use type Cigarette 06/21/23 15:55 e-Cigarette/Vaping Use Never Used 06/21/23 15:55 Thrive Assessment: Date of Thrive Assessment Date Thrive assessed 04/06/23 06/21/23 15:55 Const General: no acute distress and alert HENMT Ears: TM's normal bilaterally and EAC's normal Throat: Yes posterior oropharynx normal and Yes tonsils normal (no TP congestion noted) Neck Neck: Yes no lymphadenopathy and Yes supple Resp Auscultation: clear to auscultation bilaterally, no rales and no wheezes Cardio Rate: regular rate Rhythm: regular rhythm Heart sounds: no murmurs GI Palpation (GI): Soft to palpation and nontender Auscultation: normal bowel sounds Back/Spine/Pelvis Thoracic/Lumbar Spine: paraspinal muscle tenderness on the right in the lower lumbar and lumbar spinal tenderness Extrem General: Yes no clubbing, cyanosis or edema Left upper extremity: shoulder/upper arm Details: tenderness Location: of the A-C joint Left lower extremity: hip/thigh Details: tenderness and knee Details: tenderness (increased) and swelling (mild) Location: of the pre-patellar area and of the infrapatellar area Assessment and Plan Assessment & Plan (1) Left shoulder pain: Code(s): M25.512 - Pain in left shoulder Qualifiers: Chronicity: unspecified Qualified Code(s): M25.512 - Pain in left shoulder Plan: S/P fall a few days ago on 06/17/2023 X-rays of the left shoulder done a few days ago revealed (+) OA changes with no acute fracture Have advised patient that her current increased shoulder pain is likely due to a combination of calcific tendinitis, OA and rotator cuff strain; there is also a possibility of a more significant injury to her rotator cuff (tear) and MRI may be necessary of her symptoms progress or get worse Will refer her to [facility] for further evaluation and management - advised that I will leave it up to them to decide if cortisone injections would be an appropriate option at this time Will start her for now on oral Prednisone for a few days (40 mg QD x 5 days) to help provide her with some pain relief and this should also help calm down the inflammatory changes in her left shoulder, left hip and left knee Continue Tramadol 50 mg TID PRN for pain as well and advised her to also try applying some warm compress to her left shoulder PRN for symptomatic relief (2) Left hip pain: Code(s): M25.552 - Pain in left hip Plan: X-rays of the left knee also showed only (+) OA changes Will refer her to orthopedics (3) Left knee pain: Code(s): M25.562 - Pain in left knee Qualifiers: Chronicity: unspecified Qualified Code(s): M25.562 - Pain in left knee Plan: Left knee x-rays done a few days ago showed (+) OA changes as well Continue Tramadol 50 mg TID PRN and Ibuprofen 800 mg TID PRN with food for pain Will also refer her to orthopedics for further evaluation (4) Pruritic rash: Code(s): L28.2 - Other prurigo Plan: Mostly over the medial aspect of the left upper arm - is likely dermatitis from exposure to heat and sweat brought about recently by patient holding her left arm against her torso constantly due to her increased left shoulder pain Will start her on Hydrocortisone 2.5% cream BID PRN Plan Follow up as scheduled later this month on 07/09/2023 Orders: Referrals Orthopedics Referral M25.512 - Pain in left shoulder, Z91.81 - History of falling Medications: New prednisone 40 mg (2 x 20 mg) PO DAILY 5 days 10 tabs 0RF hydrocortisone 2.5% 1 appl topical BID PRN 30 grams 0RF skin irritation/rash/itching Coding Level of Care Code Est Pt Level 3 (74291) Diagnoses Left shoulder pain, unspecified chronicity M25.512 Chronicity: unspecified Left hip pain M25.552 Left knee pain, unspecified chronicity M25.562 Chronicity: unspecified Pruritic rash L28.2
[2023-06-21 15:52] VITALS: BP 128/72; PULSE 80; RESP 15; O2SAT 100; BMI 42.9
== END 2023-06-21 16:22 | disposition home or self-care (01) ==
LOC: HO.HMGH 15:51
PROVIDERS: PCP Internal Medicine; Visit Provider Internal Medicine
DX: M25.512 Pain in left shoulder (principal); M25.552 Pain in left hip; M25.562 Pain in left knee; L28.2 Other prurigo
CPT/HCPCS: 99213

== ENCOUNTER 2023-07-07 10:18 | Outpatient (REF) | payer MEDICARE, SELFPAY ==
[2023-07-07 10:36] LABS: MANUAL DIFF FLAG NO
[2023-07-07 11:49] LABS: Basophils Absolute Auto 0.1 X10*3/uL (0.0-0.2); Basophils Percent Auto 0.6 % (0-2); Eosinophils Absolute Auto 0.2 X10*3/uL (0.0-0.4); Eosinophils Percent Auto 2.1 % (0-4); Hematocrit 39.6 % (37.0-47.0); Hemoglobin 12.7 g/dl (12.0-16.0); Imm Gran Abs Auto 0.08 X10*3/uL (0.00-0.03); Imm Gran Pct Auto 0.7 % (0.0-0.4); Lymphocytes Absolute Auto 3.8 X10*3/uL (1.2-4.9); Lymphocytes Percent Auto 34.7 % (20-40); Mean Corpuscular HGB Conc 32.1 g/dl (31.0-35.0); Mean Corpuscular Hemoglobin 27.1 pg (27.0-33.0); Mean Corpuscular Volume 84.6 fL (80.0-98.0); Mean Platelet Volume 10.3 fL (9.4-12.3); Monocytes Absolute Auto 0.7 X10*3/uL (0.1-1.2); Neutrophils Absolute Auto 6.1 x10*3/uL (2.0-8.3); Neutrophils Percent Auto 55.9 % (45-73); Platelet Count 378 X10*3/uL (160-400); Red Blood Count 4.68 X10*6/uL (4.20-5.50); Red Cell Distribution Width 14.6 % (11.0-16.0); White Blood Count 10.8 X10*3/uL (4.8-10.8)
[2023-07-07 12:07] LABS: Estimated Average Glucose 163 mg/dL; Hemoglobin A1c % 7.3 % (<6.0)
[2023-07-07 12:27] LABS: Alanine Aminotransferase 15 U/L (0-31); Albumin Level 3.9 g/dL (3.5-5.0); Alkaline Phosphatase 140 U/L (39-117); Anion Gap 13 (12-20); Aspartate Amino Transferase 28 U/L (5-31); Bilirubin Total 0.4 mg/dL (0.0-1.0); Blood Urea Nitrogen 10 mg/dL (9-16); Calcium 9.2 mg/dL (8.4-10.2); Carbon Dioxide 30 mmol/L (22-29); Chloride 101 mmol/L (96-108); Cholesterol 137 mg/dL (<200); Estimated Glomerular Filt Rate > 60; Glucose Fasting 136 mg/dL (60-99); HDL Cholesterol 45 mg/dL (>40); LDL Cholesterol Calculated 81 mg/dL (<100); Potassium 4.4 mmol/L (3.3-5.1); Sodium 140 mmol/L (135-145); Total Protein 7.7 g/dL (6.5-8.0); Triglycerides 57 mg/dL (<150)
== END 2023-07-07 10:19 | disposition home or self-care (01) ==
LOC: HO.LAB 10:18
PROVIDERS: PCP Internal Medicine; Visit Provider Internal Medicine
DX: Z01.419 Encounter for gynecological examination (general) (routine) without abnormal findings (principal); Z11.51 Encounter for screening for human papillomavirus (HPV); E11.9 Type 2 diabetes mellitus without complications; E78.00 Pure hypercholesterolemia, unspecified; D64.9 Anemia, unspecified
CPT/HCPCS: 36415; 80053; 80061; 81001; 83036; 85025; 87480; 87510; 87624; 87660; 88142

== ENCOUNTER 2023-07-07 13:34 | Outpatient (AMB) | payer MEDICARE, MEDICAID, SELFPAY ==
--- NOTE | 2023-07-07 13:40 | MHC.OFFVIS ---
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 Intake Note: Last pap 2 yrs ago normal hx pt c/o vaginal itching PACKER OPERATOR AUTOMATIC [place] Visitor Services Representative Required: Yes Visitor Services Representative Language: Middle School Reading Teacher Name: Ramses Felix [id number] Information Interpreted: non-clinical & clinical Shingle Shearing Machine Operator: Shingle Shearing Machine Operator Present Accompanied by: Other Relationship Allergies penicillin G Allergy (Severe, Verified 07/07/23 13:41) Itching latex Allergy (Intermediate, Verified 07/07/23 13:41) Itching nitrofurantoin Allergy (Intermediate, Verified 07/07/23 13:41) itching and redness (in the legs) HPI Comments Details: 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 She is doing well with concerns: admits to external itching, she reports it runs in the family needs a refill on her topical cream to help with her itching use p.r.n. reports right breast pain and nipple discharge on the same side, denies any injury, previous biopsies or surgeries. Experiencing hot flashes. Attempting to eat a healthy diet with calcium and vitamin D and stays active with exercise. Currently not sexually active with her . Last pap smear; uncertain, normal history. Last mammogram; 2023. Colonoscopy is UTD. Denies any family history of breast, ovarian or colon cancer. [facility] Medical History Chest pain Calcific tendinitis of left shoulder Weakness of left upper extremity Weakness of both lower extremities Joint pain in fingers of both hands Joint pain in both hands Bilateral knee pain Vitamin B12 deficiency Bilateral ankle pain Rash Right foot pain Medicare annual wellness visit, subsequent Cervical cancer screening Bronchopneumonia Chronic low back pain Bilateral foot pain Bilateral hip pain Annual physical exam Stool incontinence Hyperlipidemia LDL goal <70 Bilateral hip pain Fibromyalgia Chronic bronchitis Vitamin D deficiency Post-thoracotomy pain syndrome COPD (chronic obstructive pulmonary disease) Depression Anxiety Type 2 diabetes mellitus with diabetic polyneuropathy Pulmonary nodules Allergic rhinitis GERD (gastroesophageal reflux disease) Morbid obesity with BMI of 40.0-44.9, adult Asthma Obstructive sleep apnea Lumbar degenerative disc disease Carcinoid tumor Coronary artery disease Benign essential hypertension Type 2 diabetes mellitus with hyperglycemia, with long-term current use of insulin Surgical History History of colonoscopy (~12/2013) History of tubal ligation History of lung biopsy (~07/2016) History of esophagogastroduodenoscopy (EGD) (~10/2011) History of lobectomy of lung (~08/2016) History of rectal sphincterotomy (~11/2013) History of cardiac cath (~07/2018) Family History Father Stroke Hypertension Diabetes Mother Diabetes Hypertension Other Arthritis Lupus Social History Household Members: Spouse Housing: Apartment Alcohol intake: never Patient Tobacco Use Status: Former Tobacco user Tobacco use type: Cigarette e-Cigarette/Vaping Use: Never Used Second Hand Smoke Exposure: Yes service: No Current occupational status: disabled Cognitive needs: No Hearing needs: No Vision needs: Yes Female Reproductive History Menstrual control method: permanent sterilization Permanent Sterilization: BTL Total pregnancies: 5 Full term: 5 Number of Living Children: 5 Date of Mammogram: 06/16/23 (Birad 1) Review of Systems Const All systems reviewed & are unremarkable except as noted in HPI and below Reports as per HPI Eyes Reports no additional complaints ENT Reports no additional complaints Card Reports no additional complaints Resp Reports no additional complaints GI Reports as per HPI and Reports no additional complaints Reports as per HPI Musc Reports no additional complaints Skin/Breast Reports as per HPI Neuro Reports no additional complaints Psych Reports no additional complaints Endo Reports no additional complaints Jack/Lymph Reports no additional complaints Aller/Immun Reports no additional complaints Physical Exam Vital Signs: Last Vital Signs BP 90/60 07/07/23 13:41 BMI result Body Mass Index 42.9 Const General: cooperative, healthy appearing, no acute distress, well developed and alert Orientation/consciousness: patient oriented x3 HEENT Head: Yes normal to inspection Eyes General: appearance normal, both eyes and all related structures Neck Neck: Yes normal visual inspection Thyroid: Thyroid normal Chest Other: No abnormal findings with breast exam, patient reports tenderness to the right breast only at the 7-8 o'clock position. Chest palpation & inspection: normal inspection of the chest and other (no puckering, dimpling, peau de orange, retraction, discharge, masses) Breast/axilla inspection: normal inspection of the breasts Breast/axilla palpation: normal palpation of the breasts Resp Effort & Inspection: normal respiratory effort GI Inspection: Yes normal to inspection and Yes obesity Palpation (GI): Soft to palpation Rectal Exam - Female: deferred Other: Vulva- no signs of infection General: Yes bladder normal to palpation External Female Exam: normal external appearance and normal appearance of the urethra Speculum Exam - Vagina: normal appearance of the vagina, normal palpation, normal vaginal discharge and vagina atrophic Speculum Exam - Cervix: normal appearance of the cervix and normal palpation Bimanual exam- vagina & uterus: normal bimanual exam, normal palpation, uterine size normal, bladder normal to palpation, normal palpation and non-tender Bimanual Exam- Adnexa, other: no masses Skin General skin exam: no rashes or lesions noted Rashes: no rashes Neuro General: patient oriented x3 Cognition (Neuro): normal cognition Extrem General: Yes normal to inspection Psych Attitude: cooperative Thought process: Normal thought process present Assessment & Plan Assessment & Plan (1) Encounter for well woman exam with routine gynecological exam: Code(s): Z01.419 - Encounter for gynecological examination (general) (routine) without abnormal findings (2) Breast pain: Code(s): N64.4 - Mastodynia (3) Nipple discharge: Code(s): N64.52 - Nipple discharge Plan Discussed: Current recommendations for pap smears per ASCCP guidelines. Breast awareness, periodic self breast exams and yearly mammogram. Maintain a healthy lifestyle, well balanced diet including Calcium 1,200 mg and Vitamin D 600 IU daily, and routine exercise. Follow up in the office for test results for breast evaluation. Topical cream sent in to use sparingly when needed if itching persists and not resolve with medication to follow up in office sooner for re-evaluation. Patient was asymptomatic today med requested for future use. Contact the office with any postmenopausal bleeding. Patient verbalizes understanding and agrees to the plan of care. She was given opportunity to ask questions and all questions were answered to the best of my ability. RTO in 1 year for annual precision lens grinder apprentice exam. This note is constructed using voice recognition software. While every effort has been made to ensure accuracy, retail training manager errors may have been included. Orders: Orders US breast RT complete Today N64.4 - Mastodynia, N64.52 - Nipple discharge Bacterial Vaginosis Panel Today N89.8 - Other specified noninflammatory disorders of vagina Pap Smear Today Z01.419 - Encounter for gynecological examination (general) (routine) without abnormal findings Medications: New clotrimazole-betamethasone 1-0.05 % apply for itch as needed 1 appl topical BID 7 days PRN 45 grams 1RF fungal rash Coding Level of Care Code New Pt Prev Care >65yr (31626) Diagnoses Encounter for well woman exam with routine gynecological exam Z01.419 Breast pain N64.4 Nipple discharge N64.52
[2023-07-07 13:41] VITALS: BP 90/60; BMI 42.9
== END 2023-07-07 14:55 | disposition home or self-care (01) ==
PROVIDERS: PCP Internal Medicine; Visit Provider Advanced Practice Midwife
DX: Z01.419 Encounter for gynecological examination (general) (routine) without abnormal findings (principal); N64.4 Mastodynia; N64.52 Nipple discharge
CPT/HCPCS: 99387

== ENCOUNTER 2023-07-07 14:30 | Outpatient (REF) | payer MEDICARE, SELFPAY ==
[2023-07-07 17:42] LABS: Appearance Urine Cloudy; Color Urine Dark Yellow; Glucose Urine UA Negative (Negative); Leukocyte Esterase Urine Trace (Negative); Nitrite Urine Negative (Negative); PH 6.5 (5.0-9.0); Specific Gravity - Urine 1.025 (1.005-1.025); UMIC TRIGGER UACC YES; Urine Blood Negative (Negative); Urine Ketones Trace mg/dL (Negative); Urine Protein Trace mg/dL (Neg-Trace)
[2023-07-07 17:44] LABS: Bacteria Urine 4+ (None Seen); Hyaline Casts Urine 0-2 /LPF (0-2); RBC Urine 0-2 /HPF (0-2); Squamous Epithelial Cell Urine >20 /HPF (0-2); WBC Urine 0-5 /HPF (0-5)
[2023-07-08 13:17] LABS: BV Int Neg Control Negative (Negative); BV Int Pos Control Positive (Positive)
[2023-07-13 06:49] LABS: HPV mRNA E6/E7 rflx Not Detected (Not Detected)
== END 2023-07-07 14:31 | disposition home or self-care (01) ==
LOC: HO.LNP 14:30
PROVIDERS: Internal Medicine; Visit Provider Advanced Practice Midwife
DX: Z13.89 Encounter for screening for other disorder (principal)
CPT/HCPCS: 81001; 87480; 87510; 87660

== ENCOUNTER 2023-07-09 10:54 | Outpatient (AMB) | payer MEDICARE, MEDICAID, SELFPAY ==
[2023-07-09 10:58] VITALS: BP 118/58; PULSE 80; O2SAT 96; BMI 43.0
--- NOTE | 2023-07-09 10:58 | MHC.PC.OV ---
Vital Signs 07/09/23 10:58 Height 5 ft 1.42 in Weight 231 lb BMI 43.0 BP 118/58 L Blood Pressure Location Rt brachial Position Sitting Pulse 80 Pulse Source Pulse Oximeter Pulse Oximetry (%) 96 Oxygen Delivery Method Room Air Intake Visit Reasons: 3mth f/u Park Warden Required: No Accompanied by: Self / Same As Patient Allergies penicillin G Allergy (Severe, Verified 07/09/23 11:36) Itching latex Allergy (Intermediate, Verified 07/09/23 11:36) Itching nitrofurantoin Allergy (Intermediate, Verified 07/09/23 11:36) itching and redness (in the legs) Medication List - Last Reconciled 07/09/23 by Leroy Jauregui MD [ADULT BRIEFS (size XL) As directed] [ADULT PULL-UPS (size XL) As directed] albuterol sulfate 90 mcg/actuation 2 puffs inhalation QID PRN albuterol sulfate 2.5 mg (3 mL) inhalation Q4-6H PRN alcohol swabs 1 pad topical TID amitriptyline 25 mg PO BEDTIME aspirin 81 mg PO DAILY 90 days atorvastatin 40 mg PO DAILY blood pressure monitor As directed blood sugar diagnostic (OneTouch Verio test strips) Three times a day blood sugar diagnostic (OneTouch Verio test strips) As directed tests 4X/day blood-glucose meter Three times a day blood-glucose meter (OneTouch Verio Flex Meter) As directed trsts 4 X/day cholecalciferol (vitamin D3) 50 mcg PO DAILY 90 days clotrimazole-betamethasone 1-0.05 % 1 appl topical BID PRN 7 days cyanocobalamin (vitamin B-12) 1,000 mcg PO DAILY 90 days dexlansoprazole 60 mg PO DAILY diclofenac sodium 1% (Arthritis Pain (diclofenac)) 2 grams topical QID PRN [DISPOSABLE WIPES As directed] dulaglutide (Trulicity) 3 mg (0.5 mL) subcut QWEEK duloxetine 60 mg PO DAILY escitalopram oxalate 5 mg PO DAILY flash glucose scanning reader (IsagenStyle [place] 2 [place]) As directed flash glucose sensor (FreeStyle [place] 2 Sensor kit) As directed change every 14 days fluticasone propionate 220 mcg/actuation (Flovent HFA) 1 puff PO BID fluticasone propionate 50 mcg/actuation 2 sprays intranasal DAILY 30 days [FOUR-PRONGED CANE As directed] furosemide 20 mg PO DAILY glucose 12 grams (3 x 4 gram) PO Q15M hydrochlorothiazide 25 mg PO DAILY 90 days hydrocortisone 2.5% 1 appl topical BID PRN ibuprofen 800 mg PO TID PRN insulin glargine (Lantus Solostar U-100 Insulin) 20 units (0.2 mL) subcut QAM ipratropium-albuterol 0.5 mg-3 mg(2.5 mg base)/3 mL 3 mL inhalation QID PRN lancets (OneTouch Delica Lancets) Three times a day lancets (FreeStyle Lancets) As directed three time a day lancets (OneTouch Delica Plus Lancet) As directed-tests 4 X/day lancets (FreeStyle Lancets) As directed lidocaine 5% (Lidoderm) 1 patch topical DAILY 30 days [LIGHTWEIGHT WALKER WITH SEAT walker with seat] linaclotide (Linzess) 72 mcg PO QAM loratadine 10 mg PO DAILY 90 days lorazepam 1 mg PO BID-TID PRN 30 days memantine 10 mg PO BID metformin 1 tablet in the morning and 2 tablets in evening PO; 30 days metoprolol succinate ER 50 mg PO DAILY montelukast 10 mg PO BEDTIME nebulizers As directed nystatin 1 appl topical TID pen needle, diabetic (BD Ultra-Fine Cindy Pen Needle) twice daily pen needle, diabetic (Comfort EZ Pen [place]) As directed injects once a day prednisone 40 mg (2 x 20 mg) PO DAILY 5 days pregabalin 150 mg PO Q8H 30 days [ROLLATOR with SEAT As directed] sertraline 50 mg PO DAILY Shower Chair As directed tiotropium-olodaterol 2.5-2.5 mcg/actuation (Stiolto Respimat) 2 puffs inhalation DAILY tizanidine 4 mg PO TID PRN tramadol 50 mg PO TID PRN 30 days umeclidinium-vilanterol 62.5-25 mcg/actuation (Anoro Ellipta) 1 inh inhalation DAILY valacyclovir 500 mg PO BID valsartan 320 mg PO DAILY Tobacco use date assessed: 04/06/23 Fall risk assessment: No Falls in past year Last assessed Fall Risk: 07/09/23 Dental Screening Dental Screen Date: 04/06/23 HPI 3mth f/u HPI Details Patient comes in today for her follow up visit States that she woke up earlier this morning with a mild sore throat Also still has on and off runny nose and nasal congestion She denies any fever, headaches or dizziness Denies any chest pains, no increased SOB No nausea/vomiting, no abdominal pain No change in bowel habits noted States that she still has increased pain over her left shoulder, left hip and left knee, which have been bothering her since she fell earlier this month on 06/17/2023 States that she had her x-rays done recently as instructed and would like to know if her x-rays show any significant findings She also had her follow up labs done a couple of days ago - to discuss her results [facility] Medical History Chest pain Calcific tendinitis of left shoulder Weakness of left upper extremity Weakness of both lower extremities Joint pain in fingers of both hands Joint pain in both hands Bilateral knee pain Vitamin B12 deficiency Bilateral ankle pain Rash Right foot pain Medicare annual wellness visit, subsequent Cervical cancer screening Bronchopneumonia Chronic low back pain Bilateral foot pain Bilateral hip pain Annual physical exam Stool incontinence Hyperlipidemia LDL goal <70 Bilateral hip pain Fibromyalgia Chronic bronchitis Vitamin D deficiency Post-thoracotomy pain syndrome COPD (chronic obstructive pulmonary disease) Depression Anxiety Type 2 diabetes mellitus with diabetic polyneuropathy Pulmonary nodules Allergic rhinitis GERD (gastroesophageal reflux disease) Morbid obesity with BMI of 40.0-44.9, adult Asthma Obstructive sleep apnea Lumbar degenerative disc disease Carcinoid tumor Coronary artery disease Benign essential hypertension Type 2 diabetes mellitus with hyperglycemia, with long-term current use of insulin Surgical History History of colonoscopy (~12/2013) History of tubal ligation History of lung biopsy (~07/2016) History of esophagogastroduodenoscopy (EGD) (~10/2011) History of lobectomy of lung (~08/2016) History of rectal sphincterotomy (~11/2013) History of cardiac cath (~07/2018) Family History Father Stroke Hypertension Diabetes Mother Diabetes Hypertension Other Arthritis Lupus Social History Household Members: Spouse Housing: Apartment Alcohol intake: never Patient Tobacco Use Status: Former Tobacco user Tobacco use type: Cigarette e-Cigarette/Vaping Use: Never Used Second Hand Smoke Exposure: Yes service: No Current occupational status: disabled Cognitive needs: No Hearing needs: No Vision needs: Yes Questionnaire Thrive Questionnaire Date Thrive assessed: 04/06/23 EVELINE-7 AMB Questionnaire EVELINE-7 Date EVELINE - 7 assessed: 04/06/23 Source: Developed by Drs. Jeffrey Chavez, Marj Villatoro, Vaibhav Pagan and colleagues, with an educational norm from [employer]. Review of Systems Const Denies chills, Reports difficulty sleeping, Reports fatigue, Denies fever(s) and Denies headache(s) ENT Denies dysphagia, Denies dizziness, Denies otalgia, Denies headache(s), Reports nasal discharge, Reports neck pain, Denies odynophagia and Reports sore throat (mild, since this morning) Card Denies chest pain, Denies palpitations and Reports dyspnea on exertion (mild) Resp Denies cough, Reports dyspnea on exertion (mild) and Denies wheezing GI Denies abdominal pain, Denies constipation, Denies dysphagia, Denies heartburn, Reports fecal incontinence, Denies diarrhea, Denies nausea, Denies odynophagia and Denies vomiting Denies difficulty voiding, Denies nocturia, Denies dysuria and Reports urinary incontinence (at times) Musc Details: (+) increased pain over the left shoulder, left hip and left knee since her fall on 06/17/2023 Reports back pain (especially over the right lower back), Reports arthralgias (over the left shoulder - increased lately; also over left hip and left knee), Reports neck pain and Reports numbness (in both feet, on and off) Skin/Breast Denies rash Neuro Denies dizziness, Denies headache(s), Reports numbness (in both feet, on and off) and Reports paresthesias (in both feet) Endo Reports fatigue and Denies palpitations Aller/Immun Denies wheezing Physical exam (Primary Care) Vital Signs: Last Vital Signs Pulse 80 07/09/23 10:58 BP 118/58 L 07/09/23 10:58 Pulse Ox 96 07/09/23 10:58 Oxygen Delivery Method Room Air 07/09/23 10:58 BMI result Body Mass Index 43.0 Tobacco/Smoking Status: Tobacco use Status Tobacco use date assessed 04/06/23 07/09/23 11:00 Patient Tobacco Use Status Former Tobacco user 07/09/23 11:00 Tobacco use type Cigarette 07/09/23 11:00 e-Cigarette/Vaping Use Never Used 07/09/23 11:00 Thrive Assessment: Date of Thrive Assessment Date Thrive assessed 04/06/23 07/09/23 11:00 Const General: no acute distress and alert HENMT Ears: TM's normal bilaterally and EAC's normal Throat: Yes posterior oropharynx normal and Yes tonsils normal (no TP congestion noted) Neck Neck: Yes no lymphadenopathy and Yes supple Thyroid: Thyroid normal Resp Auscultation: clear to auscultation bilaterally, no rales and no wheezes Cardio Rate: regular rate Rhythm: regular rhythm Heart sounds: no murmurs GI Palpation (GI): Soft to palpation and nontender Auscultation: normal bowel sounds Back/Spine/Pelvis Cervical Spine: Cervical spine tenderness (mild) Thoracic/Lumbar Spine: paraspinal muscle tenderness on the right in the lower lumbar and lumbar spinal tenderness Skin Rashes: no rashes Extrem General: Yes no clubbing, cyanosis or edema Left upper extremity: shoulder/upper arm Details: tenderness Location: of the A-C joint Left lower extremity: hip/thigh Details: tenderness and knee Details: tenderness (increased); no swelling Results Reviewed Results Reviewed: Laboratory Tests 07/07/23 07/07/23 10:35 17:32 WBC 10.8 Hgb 12.7 Hct 39.6 Plt Count 378 Sodium 140 Potassium 4.4 Creatinine 0.70 Estimated GFR > 60 Fasting Glucose 136 H Hemoglobin A1c % 7.3 H Calcium 9.2 AST 28 ALT 15 Triglycerides 57 Cholesterol 137 LDL Cholesterol, Calc 81 HDL Cholesterol 45 Ur Specific [place] 1.025 Urine Protein Trace Urine Glucose (UA) Negative Urine Blood Negative Urine Nitrite Negative Ur Leukocyte Esterase Trace H Assessment and Plan Assessment & Plan (1) Type 2 diabetes mellitus with diabetic polyneuropathy: Code(s): E11.42 - Type 2 diabetes mellitus with diabetic polyneuropathy Qualifiers: Diabetes mellitus press tender long goods insulin use: with senior living use Qualified Code(s): E11.42 - Type 2 diabetes mellitus with diabetic polyneuropathy; Z79.4 - terminologist (current) use of insulin Plan: HgbA1c is at 7.3% on her labs done a couple of days ago (was at 7.5% previously a few months ago) - goal is <7.0% Reinforced diabetic diet Continue Metformin 500 mg BID; Lantus 20 units Q HS and Trulicity 3 mg SQ once a week Patient was also on Repaglinide 0.5 mg 1 tablet before breakfast and 2 tablets before dinner in the past but she has not taken this in a while now Follow up with endocrinology as scheduled (2) Coronary artery disease: Code(s): I25.10 - Atherosclerotic heart disease of [place] coronary artery without angina pectoris Qualifiers: Coronary Disease-Associated Artery/Lesion type: [place] artery [place] vs. transplanted heart: [place] heart Associated angina: without angina Qualified Code(s): I25.10 - Atherosclerotic heart disease of [place] coronary artery without angina pectoris Plan: S/P cardiac cath on 07/2018, which revealed (+) very mild disease reportedly seen on procedure Continue aggressive risk factor reduction and low dose Aspirin 81 mg QD Echocardiogram done with cardiology in November 2022 revealed normal LV systolic function with EF between 65 to 70%, normal diastolic function, normal left atrial size, normal RV systolic function, no evidence of aortic stenosis but (+) mild to moderate MR is present Follow up with cardiology as scheduled (3) Pure hypercholesterolemia: Code(s): E78.00 - Pure hypercholesterolemia, unspecified Plan: Results of her labs done a couple of days ago reviewed and discussed with patient Reinforced low cholesterol diet Continue Atorvastatin 40 mg QD Will recheck her labs and fasting lipids in 3 months for follow-up (4) Benign essential hypertension: Code(s): I10 - Essential (primary) hypertension Plan: Reinforced low sodium diet - goal is systolic BP of at least 130 mm or less Continue HCTZ 25 mg QD, Metoprolol ER 50 mg QD and Valsartan 320 mg QD; she also takes Furosemide 20 mg QD PRN only if she has increased edema (5) Carcinoid tumor: Comment: (S/[place] [facility] [place] Code(s): D3A.00 - Benign carcinoid tumor of unspecified site Qualifiers: Carcinoid tumor malignancy status: malignant Carcinoid tumor location: lung Qualified Code(s): 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 Waggoner on 09/02/[address] done in September 2020, August 2021 and most recently in October 2022 showed stable findings with (+) pulmonary nodules that appear benign Was seen by pulmonary and recommended to continue yearly chest CT for follow up Follow up with pulmonary and Dr. Waggoner and oncology as scheduled for continuing surveillance (6) Stool incontinence: Comment: (+) Hx of sphincterotomy in 2013 - Dr. Sidhu Code(s): R15.9 - Full incontinence of feces Qualifiers: Fecal incontinence type: unspecified Qualified Code(s): R15.9 - Full incontinence of feces Plan: (+) Hx of sphincterotomy by Dr. Sidhu in 2013 Reports that her stool incontinence has progressively gotten worse lately Follow up with GI as scheduled (7) Chronic idiopathic constipation: Code(s): K59.04 - Chronic idiopathic constipation Plan: Reinforced increased oral fluids and dietary fiber Continue Linzess 145 mcg QD PRN Follow up with GI as scheduled (8) Obstructive sleep apnea: Comment: no evidence of ILDEFONSO on recent inlab PSG Code(s): G47.33 - Obstructive sleep apnea (adult) (pediatric) Plan: Continue using her CPAP device at night when sleeping (9) Asthma: Code(s): J45.909 - Unspecified asthma, uncomplicated Qualifiers: Asthma severity: moderate Asthma persistence: persistent Asthma complication type: with acute exacerbation Qualified Code(s): J45.41 - Moderate persistent asthma with (acute) exacerbation Plan: Stable with no acute exacerbations lately Continue Spiriva Respimat 2.5 mcg 2 puffs QD, ? Flovent HFA 220 mcg 1 puff BID, ? Montelukast 10 mg QD, ? Ipratropium-albuterol (Duoneb) solution via nebulilzeer 4 times a day as needed, and ? ProAir HFA 108 mcg 2 puffs QID PRN Follow up with pulmonary as scheduled (10) Primary osteoarthritis of both knees: Code(s): M17.0 - Bilateral primary osteoarthritis of knee Plan: S/P fall on knee back in October 2021, with (+) significant knee contusion that took a few weeks to clear up (+) Hx of bilateral knee OA Repeat left knee x-rays done a few months ago revealed (+) significant degenerative joint disease seen involving the medial joint space compartment and patellofemoral joint without significant change from 07/18/2020 Follow up with orthopedics as scheduled (11) Bilateral hip pain: Code(s): M25.551 - Pain in right hip; M25.552 - Pain in left hip Plan: c/o increasing bilateral hip and inguinal pain lately, especially with prolonged walking but symptoms have subsided lately Bilateral hip x-rays done a few months ago came out normal Will refer to PT if symptoms persist or worsen (12) Primary osteoarthritis, left shoulder: Code(s): M19.012 - Primary osteoarthritis, left shoulder Plan: X-rays of the left shoulder done last year revealed (+) significant degenerative osteoarthritis changes as well as changes suggestive of tendinitis She is advised that her recent repeat x-rays showed only (+) osteoarthritis changes in the left shoulder Follow-up with orthopedics as scheduled (13) Osteoarthritis of left hip: Code(s): M16.12 - Unilateral primary osteoarthritis, left hip Qualifiers: Osteoarthritis type: unspecified Qualified Code(s): M16.12 - Unilateral primary osteoarthritis, left hip Plan: She is advised that her recent left hip x-rays show only (+) osteoarthritis changes with no acute injuries or fracture Follow up with orthopedics as scheduled (14) Osteoarthritis of left knee: Code(s): M17.12 - Unilateral primary osteoarthritis, left knee Qualifiers: Osteoarthritis type: primary Qualified Code(s): M17.12 - Unilateral primary osteoarthritis, left knee Plan: Patient is also advised that her recent left knee x-rays show ostoearthritis changes in the knee as well with no acute injuries Follow up with orthopedics as scheduled (15) Lumbar degenerative disc disease: Code(s): M51.36 - Other intervertebral disc degeneration, lumbar region Plan: Reinforced activity and weight-lifting restrictions Continue on Tizanidine 4 mg TID PRN, ? Oxaprozin 600 mg TID with food PRN, ? Ibuprofen 800 mg TID PRN with food, ? Tramadol 50 mg TID PRN ? Lyrica 150 mg TID, and ? Duloxetine 60 mg QD Follow up with pain management as scheduled (16) Vitamin D deficiency: Code(s): E55.9 - Vitamin D deficiency, unspecified Plan: Continue Vitamin D3 2000 units QD (17) Vitamin B12 deficiency: Code(s): E53.8 - Deficiency of other specified B group vitamins Plan: Continue Vitamin B12 1000 mcg QD (18) Allergic rhinitis: Code(s): J30.9 - Allergic rhinitis, unspecified Qualifiers: Allergic rhinitis trigger: unspecified Allergic rhinitis seasonality: unspecified Qualified Code(s): J30.9 - Allergic rhinitis, unspecified Plan: Advised that her recent sore throat as well as her on and off nasal drainage are most likely due to spring allergies Will start her back on Loratadine 10 mg QD PRN (19) GERD (gastroesophageal reflux disease): Code(s): K21.9 - Gastro-esophageal reflux disease without esophagitis Qualifiers: Esophagitis presence: without esophagitis Qualified Code(s): K21.9 - Gastro-esophageal reflux disease without esophagitis Plan: Dietary restrictions reinforced Continue Dexilant 60 mg QD Follow up with GI as scheduled (20) Depression: Code(s): F32.9 - Major depressive disorder, single episode, unspecified Qualifiers: Depression Type: major depressive disorder Major depression recurrence: recurrent Active/Remission status: currently active Major depression episode severity: unspecified Qualified Code(s): F33.9 - Major depressive disorder, recurrent, unspecified Plan: Continue Fluoxetine 20 mg QD Follow up with psychiatry as scheduled (21) Morbid obesity with BMI of 40.0-44.9, adult: Code(s): E66.01 - Morbid (severe) obesity due to excess calories; Z68.41 - Body mass index [BMI] 40.0-44.9, adult Plan: Reinforced diet; exercise and weight loss are likely unrealistic in this patient due to her multiple comorbidities and physical issues Plan Follow up in 3 months Orders: Orders Complete Blood Count Auto Diff 3 Months D64.9 - Anemia, unspecified Comprehensive Strang. Panel Fast 3 Months E78.00 - Pure hypercholesterolemia, unspecified Microalbumin, Random (w Creat) 3 Months E11.9 - Type 2 diabetes mellitus without complications UA CC w/rflx Micro + Cult 3 Months R30.0 - Dysuria Hemoglobin A1c 3 Months E11.9 - Type 2 diabetes mellitus without complications Lipid Panel 3 Months E78.00 - Pure hypercholesterolemia, unspecified TSH reflex Free T4 3 Months E78.00 - Pure hypercholesterolemia, unspecified Vitamin D 25-OH Total 3 Months E55.9 - Vitamin D deficiency, unspecified Vitamin B12 and Folate 3 Months E53.8 - Deficiency of other specified B group vitamins Medications: New loratadine 10 mg PO DAILY 90 days PRN 90 tabs 3RF allergy symptoms J30.9 - Allergic rhinitis, unspecified Coding Level of Care Code Est Pt Level 4 (08860) Diagnoses Type 2 diabetes mellitus with diabetic polyneuropathy, with long-term current use of insulin E11.42; Z79.4 Diabetes mellitus senior living insulin use: with press tender long goods use Coronary artery disease involving [place] coronary artery of [place] heart without angina pectoris I25.10 Coronary Disease-Associated Artery/Lesion type: [place] artery [place] vs. transplanted heart: [place] heart Associated angina: without angina Pure hypercholesterolemia E78.00 Benign essential hypertension I10 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 Carcinoid tumor malignancy status: malignant Carcinoid tumor location: lung Incontinence of feces, unspecified fecal incontinence type R15.9 Fecal incontinence type: unspecified Chronic idiopathic constipation K59.04 Obstructive sleep apnea G47.33 Moderate persistent asthma with acute exacerbation J45.41 Asthma severity: moderate Asthma persistence: persistent Asthma complication type: with acute exacerbation Primary osteoarthritis of both knees M17.0 Bilateral hip pain M25.551; M25.552 Primary osteoarthritis, left shoulder M19.012 Osteoarthritis of left hip, unspecified osteoarthritis type M16.12 Osteoarthritis type: unspecified Primary osteoarthritis of left knee M17.12 Osteoarthritis type: primary Lumbar degenerative disc disease M51.36 Vitamin D deficiency E55.9 Vitamin B12 deficiency E53.8 Allergic rhinitis, unspecified seasonality, unspecified trigger J30.9 Allergic rhinitis trigger: unspecified Allergic rhinitis seasonality: unspecified Gastroesophageal reflux disease without esophagitis K21.9 Esophagitis presence: without esophagitis Episode of recurrent major depressive disorder, unspecified depression episode severity F33.9 Depression Type: major depressive disorder Major depression recurrence: recurrent Active/Remission status: currently active Major depression episode severity: unspecified Morbid obesity with BMI of 40.0-44.9, adult E66.01; Z68.41
== END 2023-07-09 11:48 | disposition home or self-care (01) ==
PROVIDERS: PCP Internal Medicine; Visit Provider Internal Medicine
DX: E11.42 Type 2 diabetes mellitus with diabetic polyneuropathy (principal); Z79.4 Long term (current) use of insulin; E66.01 Morbid (severe) obesity due to excess calories; Z68.41 Body mass index [BMI] 40.0-44.9, adult; C7A.090 Malignant carcinoid tumor of the bronchus and lung; F33.9 Major depressive disorder, recurrent, unspecified; I25.10 Atherosclerotic heart disease of native coronary artery without angina pectoris; E78.00 Pure hypercholesterolemia, unspecified; I10 Essential (primary) hypertension; R15.9 Full incontinence of feces; K59.04 Chronic idiopathic constipation
CPT/HCPCS: 99214

== ENCOUNTER 2023-07-16 10:57 | Outpatient (AMB) | payer MEDICARE, MEDICAID, SELFPAY ==
--- NOTE | 2023-07-16 11:19 | MHC.OFFVIS ---
Vital Signs 07/16/23 11:21 Height 5 ft Intake Visit Reasons: ov-Pain in left shoulder Intake Note: Radha is a 68 year old female who presents today for a follow up of her left shoulder OA, She is an uncontrolled diabetic so injection have not been administered adn she cannot take NSAIDs due to other medical comorbidities. Hx of PT Allergies penicillin G Allergy (Severe, Verified 07/16/23 11:21) Itching latex Allergy (Intermediate, Verified 07/16/23 11:21) Itching nitrofurantoin Allergy (Intermediate, Verified 07/16/23 11:21) itching and redness (in the legs) HPI HPI ov-Pain in left shoulder: Details: Radha is a 68 year old female who presents today for a follow up of her left shoulder OA, She is an uncontrolled diabetic so injection have not been administered adn she cannot take NSAIDs due to other medical comorbidities. Hx of PT PFSH Medical History Chest pain Calcific tendinitis of left shoulder Weakness of left upper extremity Weakness of both lower extremities Joint pain in fingers of both hands Joint pain in both hands Bilateral knee pain Vitamin B12 deficiency Bilateral ankle pain Rash Right foot pain Medicare annual wellness visit, subsequent Cervical cancer screening Bronchopneumonia Chronic low back pain Bilateral foot pain Bilateral hip pain Annual physical exam Stool incontinence Hyperlipidemia LDL goal <70 Bilateral hip pain Fibromyalgia Chronic bronchitis Vitamin D deficiency Post-thoracotomy pain syndrome COPD (chronic obstructive pulmonary disease) Depression Anxiety Type 2 diabetes mellitus with diabetic polyneuropathy Pulmonary nodules Allergic rhinitis GERD (gastroesophageal reflux disease) Morbid obesity with BMI of 40.0-44.9, adult Asthma Obstructive sleep apnea Lumbar degenerative disc disease Carcinoid tumor Coronary artery disease Benign essential hypertension Type 2 diabetes mellitus with hyperglycemia, with long-term current use of insulin Surgical History History of colonoscopy (~12/2013) History of tubal ligation History of lung biopsy (~07/2016) History of esophagogastroduodenoscopy (EGD) (~10/2011) History of lobectomy of lung (~08/2016) History of rectal sphincterotomy (~11/2013) History of cardiac cath (~07/2018) Family History Father Stroke Hypertension Diabetes Mother Diabetes Hypertension Other Arthritis Lupus Social History Household Members: Spouse Housing: Apartment Alcohol intake: never Patient Tobacco Use Status: Former Tobacco user Tobacco use type: Cigarette e-Cigarette/Vaping Use: Never Used Second Hand Smoke Exposure: Yes service: No Current occupational status: disabled Cognitive needs: No Hearing needs: No Vision needs: Yes Physical Exam Extrem Other: 10 deg ER left shoulder + Hawkin's/Neer Office Procedures Joint Injection/Drain Joint Injection/Drain Details: Injected 1 mL of Decadron and 3 mL 1% lidocaine and 3 mL of 0.25% Marcaine. Site was prepped using aseptic technique. Patient tolerated the procedure well. Primary Site: left shoulder Approach Used: posterolateral Coding - Large joint Procedure code (CPT) selection complete Results Reviewed Results Reviewed: Left shoulder GH OA, severe Assessment & Plan Assessment & Plan (1) Primary osteoarthritis, left shoulder: Code(s): M19.012 - Primary osteoarthritis, left shoulder Category: Medical Plan: Left shoudler OA with periscapular and neck pain. I injected her SAS. (2) Type 2 diabetes mellitus with diabetic polyneuropathy: Code(s): E11.42 - Type 2 diabetes mellitus with diabetic polyneuropathy Category: Medical Qualifiers: Diabetes mellitus senior care insulin use: with intermodal dispatcher use Qualified Code(s): E11.42 - Type 2 diabetes mellitus with diabetic polyneuropathy; Z79.4 - termite treater (current) use of insulin Plan: I informed her of the hyperglycemic effects of steroids Coding Level of Care Code Est Pt Level 4 (63515) Diagnoses Primary osteoarthritis, left shoulder M19.012 Type 2 diabetes mellitus with diabetic polyneuropathy, with long-term current use of insulin E11.42; Z79.4 Diabetes mellitus senior care insulin use: with senior care use CPT Codes Coding - Large joint: 98881 - Large joint ([id number])
== END 2023-07-16 11:55 | disposition home or self-care (01) ==
PROVIDERS: PCP Internal Medicine; Visit Provider Orthopaedic Surgery
DX: M19.012 Primary osteoarthritis, left shoulder (principal); E11.42 Type 2 diabetes mellitus with diabetic polyneuropathy; Z79.4 Long term (current) use of insulin
CPT/HCPCS: 20610; 99214

== ENCOUNTER → 2023-07-16 10:57 | Outpatient (BNVA) | payer MEDICARE, MEDICAID, SELFPAY | PROVIDERS: PCP Internal Medicine; Visit Provider Orthopaedic Surgery | DX: M19.012 Primary osteoarthritis, left shoulder (principal); E11.42 Type 2 diabetes mellitus with diabetic polyneuropathy; Z79.4 Long term (current) use of insulin | CPT/HCPCS: 20610; 99212; J0665; J1100 ==

== ENCOUNTER → 2023-07-21 13:30 | Outpatient (BNV) | payer MEDICARE, SELFPAY | PROVIDERS: PCP Internal Medicine; Visit Provider Radiology Diagnostic Radiology | DX: N64.4 Mastodynia (principal) | CPT/HCPCS: 76642 ==

== ENCOUNTER 2023-07-21 13:32 | Outpatient (REF) | payer MEDICARE, SELFPAY ==
--- NOTE | ~2023-07-21 | US_ITS ---
EXAMINATION: US DIAGNOSTIC ULTRASOUND BREAST, RIGHT CLINICAL INFORMATION: Mastodynia 9:00 axis right breast.. COMPARISON: Recent bilateral mammography 06/16/2023. No relevant prior ultrasound. TECHNIQUE: Ultrasound of the right breast is performed spanning 7-11 o'clock to cover the 9:00 area of concern with real-time leonard scale imaging and color Doppler. FINDINGS: There is no focal suspicious finding. There is no solid mass, architectural abnormality, duct ectasia, or edema in the soft tissue planes. There are approximately 3 normal-appearing right low axillary lymph nodes with no evidence of cortical thickening, no enlargement, no loss of fatty nicci, and normal tran morphology. US/US breast RT limited mamm only IMPRESSION: No findings to explain 9:00 breast pain in the right breast. No findings suspicious for malignancy. Recommend clinical management. ASSESSMENT: BI-RADS 2 - Benign Findings RECOMMENDATION: 1. Patient should be managed based on the clinical impression. 2. Otherwise, routine annual screening mammography. This patient's information was entered into a reminder system with a target due date for their next mammogram.
== END 2023-07-21 13:33 | disposition home or self-care (01) ==
LOC: HO.MAMMO 13:32
PROVIDERS: PCP Internal Medicine; Visit Provider Advanced Practice Midwife
DX: N64.4 Mastodynia (principal); N64.52 Nipple discharge
CPT/HCPCS: 76642

== ENCOUNTER 2023-07-29 10:29 | Outpatient (AMB) | payer MEDICARE, SELFPAY ==
[2023-07-29 10:41] VITALS: BP 126/68; PULSE 74; O2SAT 95; BMI 42.9
--- NOTE | 2023-07-29 10:41 | MHC.PC.OV ---
Vital Signs 07/29/23 10:41 Height 5 ft 1.42 in Weight 230 lb BMI 42.9 BP 126/68 Blood Pressure Location Lt brachial Position Sitting Pulse 74 Pulse Source Pulse Oximeter Pulse Oximetry (%) 95 Oxygen Delivery Method Room Air Intake Visit Reasons: Sore Throat Clam Grower Required: No Allergies penicillin G Allergy (Severe, Verified 07/29/23 11:19) Itching latex Allergy (Intermediate, Verified 07/29/23 11:19) Itching nitrofurantoin Allergy (Intermediate, Verified 07/29/23 11:19) itching and redness (in the legs) Medication List - Last Reconciled 07/29/23 by Leroy Jauregui MD [ADULT BRIEFS (size XL) As directed] [ADULT PULL-UPS (size XL) As directed] albuterol sulfate 90 mcg/actuation 2 puffs inhalation QID PRN albuterol sulfate 2.5 mg (3 mL) inhalation Q4-6H PRN alcohol swabs 1 pad topical TID amitriptyline 25 mg PO BEDTIME aspirin 81 mg PO DAILY 90 days atorvastatin 40 mg PO DAILY blood pressure monitor As directed blood sugar diagnostic (OneTouch Verio test strips) Three times a day blood sugar diagnostic (OneTouch Verio test strips) As directed tests 4X/day blood-glucose meter Three times a day blood-glucose meter (OneTouch Verio Flex Meter) As directed trsts 4 X/day cholecalciferol (vitamin D3) 50 mcg PO DAILY 90 days clotrimazole-betamethasone 1-0.05 % 1 appl topical BID PRN 7 days cyanocobalamin (vitamin B-12) 1,000 mcg PO DAILY 90 days dexlansoprazole 60 mg PO DAILY diclofenac sodium 1% (Arthritis Pain (diclofenac)) 2 grams topical QID PRN [DISPOSABLE WIPES As directed] dulaglutide (Trulicity) 3 mg (0.5 mL) subcut QWEEK duloxetine 60 mg PO DAILY escitalopram oxalate 5 mg PO DAILY famotidine 40 mg PO BEDTIME 15 days flash glucose scanning reader (Pact ApparelStyle Mary Ann 2 [place]) As directed flash glucose sensor (FreeStyle Mary Ann 2 Sensor kit) As directed change every 14 days fluticasone propionate 220 mcg/actuation (Flovent HFA) 1 puff PO BID fluticasone propionate 50 mcg/actuation 2 sprays intranasal DAILY 30 days [FOUR-PRONGED CANE As directed] furosemide 20 mg PO DAILY glucose 12 grams (3 x 4 gram) PO Q15M hydrochlorothiazide 25 mg PO DAILY 90 days hydrocortisone 2.5% 1 appl topical BID PRN ibuprofen 800 mg PO TID PRN insulin glargine (Lantus Solostar U-100 Insulin) 20 units (0.2 mL) subcut QAM ipratropium-albuterol 0.5 mg-3 mg(2.5 mg base)/3 mL 3 mL inhalation QID PRN lancets (OneTouch Delica Lancets) Three times a day lancets (FreeStyle Lancets) As directed three time a day lancets (OneTouch Delica Plus Lancet) As directed-tests 4 X/day lancets (FreeStyle Lancets) As directed lidocaine 5% (Lidoderm) 1 patch topical DAILY 30 days [LIGHTWEIGHT WALKER WITH SEAT walker with seat] linaclotide (Linzess) 72 mcg PO QAM loratadine 10 mg PO DAILY 90 days loratadine 10 mg PO DAILY PRN 90 days lorazepam 1 mg PO BID-TID PRN 30 days memantine 10 mg PO BID metformin 1 tablet in the morning and 2 tablets in evening PO; 30 days metoprolol succinate ER 50 mg PO DAILY montelukast 10 mg PO BEDTIME nebulizers As directed nystatin 1 appl topical TID pen needle, diabetic (BD Ultra-Fine Cindy Pen Needle) twice daily pen needle, diabetic (Comfort EZ Pen [place]) As directed injects once a day prednisone 40 mg (2 x 20 mg) PO DAILY 5 days pregabalin 150 mg PO Q8H 30 days [ROLLATOR with SEAT As directed] sertraline 50 mg PO DAILY Shower Chair As directed tiotropium-olodaterol 2.5-2.5 mcg/actuation (Stiolto Respimat) 2 puffs inhalation DAILY tirzepatide (Mounjaro) 5 mg (0.5 mL) subcut QWEEK tizanidine 4 mg PO TID PRN tramadol 50 mg PO TID PRN 30 days umeclidinium-vilanterol 62.5-25 mcg/actuation (Anoro Ellipta) 1 inh inhalation DAILY valacyclovir 500 mg PO BID valsartan 320 mg PO DAILY Tobacco use date assessed: 04/06/23 Fall risk assessment: No Falls in past year Last assessed Fall Risk: 07/29/23 Dental Screening Dental Screen Date: 04/06/23 HPI Sore Throat HPI Details Patient comes in today complaining of recurrent sore throat, which she states has been going on since her last visit here about 3 weeks ago She was started on a trial of Loratadine 10 mg QD, which she states did not help much Relates that her sore throat seems to occur mostly at night States her other symptoms of nasal and sinus congestion improved with her Loratadine Rx She denies any fever, headaches or dizziness Denies any chest pains, no increased shortness of breath No nausea/vomiting, no abdominal pain No change in bowel habits noted She is also requesting to have her pregabalin dosage increased she states her chronic pain have been increasing lately and the current dose of pregabalin that she is on does not seem to be helping her enough anymore States that she also has not been able to get her Trulicity for several weeks now She was advised that a prescription for Mounjaro was sent in for about 3 weeks ago to take in place of Trulicity for now - states that she seems to recall being advised by her pharmacy that this is not available as well lately [facility] Medical History Chest pain Calcific tendinitis of left shoulder Weakness of left upper extremity Weakness of both lower extremities Joint pain in fingers of both hands Joint pain in both hands Bilateral knee pain Vitamin B12 deficiency Bilateral ankle pain Rash Right foot pain Medicare annual wellness visit, subsequent Cervical cancer screening Bronchopneumonia Chronic low back pain Bilateral foot pain Bilateral hip pain Annual physical exam Stool incontinence Hyperlipidemia LDL goal <70 Bilateral hip pain Fibromyalgia Chronic bronchitis Vitamin D deficiency Post-thoracotomy pain syndrome COPD (chronic obstructive pulmonary disease) Depression Anxiety Type 2 diabetes mellitus with diabetic polyneuropathy Pulmonary nodules Allergic rhinitis GERD (gastroesophageal reflux disease) Morbid obesity with BMI of 40.0-44.9, adult Asthma Obstructive sleep apnea Lumbar degenerative disc disease Carcinoid tumor Coronary artery disease Benign essential hypertension Type 2 diabetes mellitus with hyperglycemia, with long-term current use of insulin Surgical History History of colonoscopy (~12/2013) History of tubal ligation History of lung biopsy (~07/2016) History of esophagogastroduodenoscopy (EGD) (~10/2011) History of lobectomy of lung (~08/2016) History of rectal sphincterotomy (~11/2013) History of cardiac cath (~07/2018) Family History Father Stroke Hypertension Diabetes Mother Diabetes Hypertension Other Arthritis Lupus Social History Household Members: Spouse Housing: Apartment Alcohol intake: never Patient Tobacco Use Status: Former Tobacco user Tobacco use type: Cigarette e-Cigarette/Vaping Use: Never Used Second Hand Smoke Exposure: Yes service: No Current occupational status: disabled Cognitive needs: No Hearing needs: No Vision needs: Yes Questionnaire Thrive Questionnaire Date Thrive assessed: 04/06/23 AUDIT C Alcohol Use Questionnaire (AUDIT-C) 1. How often do you have a drink containing alcohol?: Never 3. How often do you have six or more drinks on one occasion?: Never Total Score: 0 Score Reviewed/Action Taken: Yes EVELINE-7 AMB Questionnaire EVELINE-7 Date EVELINE - 7 assessed: 04/06/23 Source: Developed by Drs. Jeffrey Chavez, Marj Villatoro, Vaibhav Pagan and colleagues, with an educational norm from [employer]. Review of Systems Const Denies chills, Reports difficulty sleeping, Reports fatigue, Denies fever(s) and Denies headache(s) ENT Denies dysphagia, Denies dizziness, Denies otalgia, Denies headache(s), Denies nasal congestion, Reports nasal discharge, Reports neck pain, Denies odynophagia and Reports sore throat (mild, ongoing since 3 weeks ago and often at night time - see HPI) Card Denies chest pain, Denies palpitations and Reports dyspnea on exertion (mild) Resp Denies cough, Reports dyspnea on exertion (mild) and Denies wheezing GI Denies abdominal pain, Denies constipation, Denies dysphagia, Denies heartburn, Reports fecal incontinence, Denies diarrhea, Denies nausea, Denies odynophagia and Denies vomiting Denies difficulty voiding, Denies nocturia, Denies dysuria and Reports urinary incontinence (at times) Musc Reports back pain (especially over the right lower back), Reports arthralgias (over the left shoulder - increased lately; also over left hip and left knee), Reports neck pain and Reports numbness (in both feet, on and off) Skin/Breast Denies rash Neuro Denies dizziness, Denies headache(s), Reports numbness (in both feet, on and off) and Reports paresthesias (in both feet) Endo Reports fatigue and Denies palpitations Aller/Immun Denies wheezing Physical exam (Primary Care) Vital Signs: Last Vital Signs Pulse 74 07/29/23 10:41 BP 126/68 07/29/23 10:41 Pulse Ox 95 07/29/23 10:41 Oxygen Delivery Method Room Air 07/29/23 10:41 BMI result Body Mass Index 42.9 Tobacco/Smoking Status: Tobacco use Status Tobacco use date assessed 04/06/23 07/29/23 10:47 Patient Tobacco Use Status Former Tobacco user 07/29/23 10:47 Tobacco use type Cigarette 07/29/23 10:47 e-Cigarette/Vaping Use Never Used 07/29/23 10:47 Thrive Assessment: Date of Thrive Assessment Date Thrive assessed 04/06/23 07/29/23 10:47 Const General: no acute distress and alert HENMT Ears: TM's normal bilaterally and EAC's normal Throat: Yes posterior oropharynx normal and Yes tonsils normal (no TP congestion noted) Neck Neck: Yes no lymphadenopathy and Yes supple Thyroid: Thyroid normal Resp Auscultation: clear to auscultation bilaterally, no rales and no wheezes Cardio Rate: regular rate Rhythm: regular rhythm Heart sounds: no murmurs GI Palpation (GI): Soft to palpation and nontender Auscultation: normal bowel sounds Back/Spine/Pelvis Cervical Spine: Cervical spine tenderness (mild) Thoracic/Lumbar Spine: paraspinal muscle tenderness on the right in the lower lumbar and lumbar spinal tenderness Skin Rashes: no rashes Extrem General: Yes no clubbing, cyanosis or edema Left upper extremity: shoulder/upper arm Details: tenderness Location: of the A-C joint Left lower extremity: hip/thigh Details: tenderness and knee Details: tenderness (increased); no swelling Assessment and Plan Assessment & Plan (1) Sore throat: Code(s): J02.9 - Acute pharyngitis, unspecified Plan: Patient states that her sore throat seems to occur most often at night and have not responded much to a trial of Loratadine Advised that her recurrent nocturnal sore throat appear to be most likely due to acid reflux Will have her continue on her Dexilant 60 mg QD Will start her additionally on famotidine 40 mg Q HS for the next couple weeks to see if this will clear up her sore throat Will also send her for an upper GI series for further evaluation (2) Type 2 diabetes mellitus with diabetic polyneuropathy: Code(s): E11.42 - Type 2 diabetes mellitus with diabetic polyneuropathy Qualifiers: Diabetes mellitus termination clerk insulin use: with [facility] use Qualified Code(s): E11.42 - Type 2 diabetes mellitus with diabetic polyneuropathy; Z79.4 - termination clerk (current) use of insulin Plan: HgbA1c was most recently at 7.3% on her labs done a few weeks ago (was at 7.5% previously a few months ago) - goal is <7.0% Reinforced diabetic diet Continue Metformin 500 mg BID and Lantus 20 units Q HS; she was also on Trulicity 3 mg SQ once a week but has not been able to get this from her pharmacy for a few weeks now She was switched over to Mounjaro 5 mg SQ once a week at her recent visit but she seems to recall being advised by her pharmacist this is also not available at present Will send in Rx for Mounjaro again but advised patient to call us ADAM if this is really not available at present and we will then consider switching her over to Ozempic for now Patient was also on Repaglinide 0.5 mg 1 tablet before breakfast and 2 tablets before dinner in the past but she has not taken this in a while now Follow up with endocrinology as scheduled (3) Coronary artery disease: Code(s): I25.10 - Atherosclerotic heart disease of [place] coronary artery without angina pectoris Qualifiers: Coronary Disease-Associated Artery/Lesion type: [place] artery [place] vs. transplanted heart: [place] heart Associated angina: without angina Qualified Code(s): I25.10 - Atherosclerotic heart disease of [place] coronary artery without angina pectoris Plan: S/P cardiac cath on 07/2018, which revealed (+) very mild disease reportedly seen on procedure Continue aggressive risk factor reduction and low dose Aspirin 81 mg QD Echocardiogram done with cardiology in November 2022 revealed normal LV systolic function with EF between 65 to 70%, normal diastolic function, normal left atrial size, normal RV systolic function, no evidence of aortic stenosis but (+) mild to moderate MR is present Follow up with cardiology as scheduled (4) Carcinoid tumor: Comment: (S/P RUL lobectomy at [facility] [place] - 08/2016) Code(s): D3A.00 - Benign carcinoid tumor of unspecified site Qualifiers: Carcinoid tumor malignancy status: malignant Carcinoid tumor location: lung Qualified Code(s): 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 Waggoner on 09/02/[address] done in September 2020, August 2021 and most recently in October 2022 showed stable findings with (+) pulmonary nodules that appear benign Was seen by pulmonary and recommended to continue yearly chest CT for follow up Follow up with pulmonary and Dr. Waggoner and oncology as scheduled for continuing surveillance (5) Lumbar degenerative disc disease: Code(s): M51.36 - Other intervertebral disc degeneration, lumbar region Plan: Reinforced activity and weight-lifting restrictions Continue Tizanidine 4 mg TID PRN, Oxaprozin 600 mg TID with food PRN, Ibuprofen 800 mg TID PRN with food, Tramadol 50 mg TID PRN and Duloxetine 60 mg QD Per request, will try increasing her Lyrica from 150 mg TID to 200 mg TID Follow up with pain management as scheduled (6) Asthma: Code(s): J45.909 - Unspecified asthma, uncomplicated Qualifiers: Asthma severity: moderate Asthma persistence: persistent Asthma complication type: with acute exacerbation Qualified Code(s): J45.41 - Moderate persistent asthma with (acute) exacerbation Plan: Stable with no acute exacerbations lately Continue Spiriva Respimat 2.5 mcg 2 puffs QD, Flovent HFA 220 mcg 1 puff BID, Montelukast 10 mg QD, Ipratropium-albuterol (Duoneb) solution via nebulilzeer 4 times a day as needed, and Albuterol HFA 108 mcg 2 puffs QID PRN Follow up with pulmonary as scheduled Plan Follow up as scheduled in November 2023 Orders: Orders [place] upper GI series 05/16/24 J02.9 - Acute pharyngitis, unspecified, K21.9 - Gastro-esophageal reflux disease without esophagitis Medications: New famotidine 40 mg PO BEDTIME 15 days 15 tabs 0RF GERD insulin detemir U-100 (Levemir FlexPen) STOP Lantus 20 units (0.2 mL) subcut BEDTIME 30 days 6 mL 3RF Changed From pregabalin 150 mg PO Q8H 30 days 90 caps 0RF To pregabalin 200 mg PO Q8H 30 days 90 caps 0RF Refilled tirzepatide (Mounjaro) 5 mg (0.5 mL) subcut QWEEK 2 mL 3RF Discontinued insulin glargine (Lantus Solostar U-100 Insulin) Discontinued Reason: Doctor's Order 20 units (0.2 mL) subcut QAM 15 mL 5RF Coding Level of Care Code Est Pt Level 4 (14722) Diagnoses Sore throat J02.9 Type 2 diabetes mellitus with diabetic polyneuropathy, with long-term current use of insulin E11.42; Z79.4 Diabetes mellitus [facility] insulin use: with termination clerk use Coronary artery disease involving [place] coronary artery of [place] heart without angina pectoris I25.10 Coronary Disease-Associated Artery/Lesion type: [place] artery [place] vs. transplanted heart: [place] heart Associated angina: without angina 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 Carcinoid tumor malignancy status: malignant Carcinoid tumor location: lung Lumbar degenerative disc disease M51.36 Moderate persistent asthma with acute exacerbation J45.41 Asthma severity: moderate Asthma persistence: persistent Asthma complication type: with acute exacerbation
== END 2023-07-29 11:29 | disposition home or self-care (01) ==
PROVIDERS: PCP Internal Medicine; Visit Provider Internal Medicine
DX: J02.9 Acute pharyngitis, unspecified (principal); E11.42 Type 2 diabetes mellitus with diabetic polyneuropathy; Z79.4 Long term (current) use of insulin; C7A.090 Malignant carcinoid tumor of the bronchus and lung; I25.10 Atherosclerotic heart disease of native coronary artery without angina pectoris; M51.36 Other intervertebral disc degeneration, lumbar region; J45.41 Moderate persistent asthma with (acute) exacerbation
CPT/HCPCS: 99214

== ENCOUNTER 2023-08-02 14:06 | Outpatient (AMB) | payer MEDICARE, MEDICAID, SELFPAY ==
--- NOTE | 2023-08-02 14:11 | MHC.OFFVIS ---
Vital Signs 08/02/23 14:15 Height 5 ft 1.42 in Weight 231 lb 11.293 oz BMI 43.2 Intake Visit Reasons: DM Intake Note: Patient present today to follow up on Type 2 Diabetes Mellitus. Last seen by Dr. Lim on 04/13/2023. Patient receives DME supplies through: [employer] Last Diabetic Eye exam: May 2023, has an upcoming appointment August 2023 Last Podiatry Visit: Last month Random Glucose: 160 mg/dl HgA1C: 7.3% 07/07/2023 Filament Cutter Required: Yes Filament Cutter Language: Swimming Pool Installer And Servicer Name: Jada MAYRA Accompanied by: CLOTH SHEARER, Granddaughter Allergies penicillin G Allergy (Severe, Verified 08/02/23 14:16) Itching latex Allergy (Intermediate, Verified 08/02/23 14:16) Itching nitrofurantoin Allergy (Intermediate, Verified 08/02/23 14:16) itching and redness (in the legs) Medication List - Last Reconciled 08/02/23 by Miriam Nix PA-C [ADULT BRIEFS (size XL) As directed] [ADULT PULL-UPS (size XL) As directed] albuterol sulfate 90 mcg/actuation 2 puffs inhalation QID PRN albuterol sulfate 2.5 mg (3 mL) inhalation Q4-6H PRN alcohol swabs 1 pad topical TID amitriptyline 25 mg PO BEDTIME aspirin 81 mg PO DAILY 90 days atorvastatin 40 mg PO DAILY blood pressure monitor As directed blood sugar diagnostic (OneTouch Verio test strips) Three times a day blood sugar diagnostic (OneTouch Verio test strips) As directed tests 4X/day blood-glucose meter Three times a day blood-glucose meter (OneTouch Verio Flex Meter) As directed trsts 4 X/day cholecalciferol (vitamin D3) 50 mcg PO DAILY 90 days clotrimazole-betamethasone 1-0.05 % 1 appl topical BID PRN 7 days cyanocobalamin (vitamin B-12) 1,000 mcg PO DAILY 90 days dexlansoprazole 60 mg PO DAILY diclofenac sodium 1% (Arthritis Pain (diclofenac)) 2 grams topical QID PRN [DISPOSABLE WIPES As directed] duloxetine 60 mg PO DAILY escitalopram oxalate 5 mg PO DAILY famotidine 40 mg PO BEDTIME 15 days flash glucose scanning reader (FreeStyle Mary Ann 2 [place]) As directed flash glucose sensor (FreeStyle Mary Ann 2 Sensor kit) As directed change every 14 days fluticasone propionate 220 mcg/actuation (Flovent HFA) 1 puff PO BID fluticasone propionate 50 mcg/actuation 2 sprays intranasal DAILY 30 days [FOUR-PRONGED CANE As directed] furosemide 20 mg PO DAILY glucose 12 grams (3 x 4 gram) PO Q15M hydrochlorothiazide 25 mg PO DAILY 90 days hydrocortisone 2.5% 1 appl topical BID PRN ibuprofen 800 mg PO TID PRN insulin detemir U-100 (Levemir FlexPen) 20 units (0.2 mL) subcut BEDTIME 30 days ipratropium-albuterol 0.5 mg-3 mg(2.5 mg base)/3 mL 3 mL inhalation QID PRN lancets (OneTouch Delica Lancets) Three times a day lancets (FreeStyle Lancets) As directed three time a day lancets (OneTouch Delica Plus Lancet) As directed-tests 4 X/day lancets (FreeStyle Lancets) As directed lidocaine 5% (Lidoderm) 1 patch topical DAILY 30 days [LIGHTWEIGHT WALKER WITH SEAT walker with seat] linaclotide (Linzess) 72 mcg PO QAM loratadine 10 mg PO DAILY 90 days loratadine 10 mg PO DAILY PRN 90 days lorazepam 1 mg PO BID-TID PRN 30 days memantine 10 mg PO BID metformin 1 tablet in the morning and 2 tablets in evening PO; 30 days metoprolol succinate ER 50 mg PO DAILY montelukast 10 mg PO BEDTIME nebulizers As directed nystatin 1 appl topical TID pen needle, diabetic (BD Ultra-Fine Cindy Pen Needle) twice daily pen needle, diabetic (Comfort EZ Pen [place]) As directed injects once a day prednisone 40 mg (2 x 20 mg) PO DAILY 5 days pregabalin 200 mg PO Q8H 30 days [ROLLATOR with SEAT As directed] sertraline 50 mg PO DAILY Shower Chair As directed tiotropium-olodaterol 2.5-2.5 mcg/actuation (Stiolto Respimat) 2 puffs inhalation DAILY tizanidine 4 mg PO TID PRN tramadol 50 mg PO TID PRN 30 days umeclidinium-vilanterol 62.5-25 mcg/actuation (Anoro Ellipta) 1 inh inhalation DAILY valacyclovir 500 mg PO BID valsartan 320 mg PO DAILY HPI HPI DM: Details: Patient is 68 yo female with DM type 2 diagnosed around 2014, who presents for management her diabetes. Past medical history:DM2, HTN, HLD, COPD, ILDEFONSO, gastroparesis. Endo: The A1c last month was 7.3. -Micro and macrovascular complications: neuropathy -Diabetes medications: metformin 500 BID and she was supposed to be Trulicity 3 mg weekly and Levemir 20 units nightly but states that she has had insurance issues with the Levemir and has been unable to find the Trulicity. Her PCP switched her from Trulicity to mounjaro but she still is unable to get this medication. She states that she previously was on Lantus 20 units but was getting nausea and hypoglycemic twice a week so she cut down to 10 units and states that that helped with the hypoglycemia but she was still feeling nauseous stop that altogether. She states that is why her PCP switched her to Levemir. She has been unable to spanish moss picker this medication. She ultimately would like to come off of insulin. -Continuous glucose monitoring: Mary Ann download shows she is using the sensor 87% of the time. Average glucose is 171 with G mi of 7.4% and variability 26.6%. 66% range with 34% hyperglycemia and no hypoglycemia -Eye exam: appt May 2023, upcoming appointment in August , denies retinopathy, report pending -Follows with Podiatry CV: Blood pressure today in the office is 126/68. She is currently on hydrochlorothiazide, metoprolol, and valsartan. Her cholesterol is controlled with atorvastatin 40 mg. Her last LDL was 80. [facility] Medical History Chest pain Calcific tendinitis of left shoulder Weakness of left upper extremity Weakness of both lower extremities Joint pain in fingers of both hands Joint pain in both hands Bilateral knee pain Vitamin B12 deficiency Bilateral ankle pain Rash Right foot pain Medicare annual wellness visit, subsequent Cervical cancer screening Bronchopneumonia Chronic low back pain Bilateral foot pain Bilateral hip pain Annual physical exam Stool incontinence Hyperlipidemia LDL goal <70 Bilateral hip pain Fibromyalgia Chronic bronchitis Vitamin D deficiency Post-thoracotomy pain syndrome COPD (chronic obstructive pulmonary disease) Depression Anxiety Type 2 diabetes mellitus with diabetic polyneuropathy Pulmonary nodules Allergic rhinitis GERD (gastroesophageal reflux disease) Morbid obesity with BMI of 40.0-44.9, adult Asthma Obstructive sleep apnea Lumbar degenerative disc disease Carcinoid tumor Coronary artery disease Benign essential hypertension Type 2 diabetes mellitus with hyperglycemia, with long-term current use of insulin Surgical History History of colonoscopy (~12/2013) History of tubal ligation History of lung biopsy (~07/2016) History of esophagogastroduodenoscopy (EGD) (~10/2011) History of lobectomy of lung (~08/2016) History of rectal sphincterotomy (~11/2013) History of cardiac cath (~07/2018) Family History Father Stroke Hypertension Diabetes Mother Diabetes Hypertension Other Arthritis Lupus Social History Household Members: Spouse Housing: Apartment Alcohol intake: never Patient Tobacco Use Status: Former Tobacco user Tobacco use type: Cigarette e-Cigarette/Vaping Use: Never Used Second Hand Smoke Exposure: Yes service: No Current occupational status: disabled Cognitive needs: No Hearing needs: No Vision needs: Yes Physical Exam Vital Signs: BMI result Body Mass Index 43.2 Const Orientation/consciousness: patient oriented x3 Neck Thyroid: Thyroid normal Lymphatic: no lymphadenopathy noted Resp Auscultation: clear to auscultation bilaterally Cardio Rate: regular rate Rhythm: regular rhythm Heart sounds: S1 normal heart sound present and S2 normal heart sound present Skin General skin exam: no rashes or lesions noted Neuro General: patient oriented x3, gait normal and no focal motor deficits Extrem Other: sensation intact General: Yes normal to inspection, Yes full ROM and Yes capillary refill normal Results Reviewed Results Reviewed: Laboratory Tests 07/07/23 10:35 Sodium 140 Potassium 4.4 Chloride 101 Carbon Dioxide 30 H Anion Gap 13 BUN 10 Creatinine 0.70 Estimated GFR > 60 Fasting Glucose 136 H Hemoglobin A1c % 7.3 H Calcium 9.2 AST 28 ALT 15 Triglycerides 57 Cholesterol 137 LDL Cholesterol, Calc 81 HDL Cholesterol 45 Assessment & Plan Assessment & Plan (1) Type 2 diabetes mellitus with hyperglycemia, with long-term current use of insulin: Code(s): E11.65 - Type 2 diabetes mellitus with hyperglycemia; Z79.4 - terminal superintendent (current) use of insulin Category: Medical Plan: Will try switching to Ozempic. Discussed risks and benefits and adverse effects including nausea, vomiting, increased risk of pancreatitis, thyroid malignancy. Will have her follow-up in a month. I did discuss increasing the metformin but she refuses to do this. She states that she is very worried about any hypoglycemic events. I will try refilling the Levemir for her and will start her at 10 units. Discussed that if she does develop hypoglycemia she will need to let us know. I did offer her diabetic Education but she does not want to do this right now. (2) Benign essential hypertension: Code(s): I10 - Essential (primary) hypertension Category: Medical Plan: Continue current regimen (3) Pure hypercholesterolemia: Code(s): E78.00 - Pure hypercholesterolemia, unspecified Category: Medical Plan: Continue current regimen (4) Morbid obesity with BMI of 40.0-44.9, adult: Code(s): E66.01 - Morbid (severe) obesity due to excess calories; Z68.41 - Body mass index [BMI] 40.0-44.9, adult Category: Medical Plan: Discussed diet and lifestyle modifications including reducing her carbohydrate, sugar and processed food intake. We did discuss that Ozempic and have some weight loss benefits as well. Patient will contact us if she develops any issues sooner follow-up. Patient understands and agrees with the plan. Medications: New semaglutide (Ozempic) for 4 weeks 0.25 mg (0.368 mL) subcut QWEEK 3 mL 3RF Changed From insulin detemir U-100 (Levemir FlexPen) STOP Lantus 20 units (0.2 mL) subcut BEDTIME 30 days 6 mL 3RF To insulin detemir U-100 (Levemir FlexPen) STOP Lantus 10 units (0.1 mL) subcut BEDTIME 30 days 3 mL 3RF Coding Level of Care Code Est Pt Level 4 (74820) Diagnoses Type 2 diabetes mellitus with hyperglycemia, with long-term current use of insulin E11.65; Z79.4 Benign essential hypertension I10 Pure hypercholesterolemia E78.00 Morbid obesity with BMI of 40.0-44.9, adult E66.01; Z68.41
[2023-08-02 14:15] VITALS: BMI 43.2
[2023-08-02 14:36] LABS: Glucose, Whole Blood 160 mg/dL (60-115)
== END 2023-08-02 15:13 | disposition home or self-care (01) ==
PROVIDERS: PCP Internal Medicine; Visit Provider Physician Assistant
DX: E11.65 Type 2 diabetes mellitus with hyperglycemia (principal); Z79.4 Long term (current) use of insulin; I10 Essential (primary) hypertension; E78.00 Pure hypercholesterolemia, unspecified; E66.01 Morbid (severe) obesity due to excess calories; Z68.41 Body mass index [BMI] 40.0-44.9, adult
CPT/HCPCS: 99214; G2211

== ENCOUNTER → 2023-08-02 14:06 | Outpatient (BNVA) | payer MEDICARE, SELFPAY | PROVIDERS: PCP Internal Medicine; Visit Provider Physician Assistant | DX: E11.65 Type 2 diabetes mellitus with hyperglycemia (principal); I10 Essential (primary) hypertension; E78.00 Pure hypercholesterolemia, unspecified; E66.01 Morbid (severe) obesity due to excess calories; Z68.41 Body mass index [BMI] 40.0-44.9, adult; Z79.4 Long term (current) use of insulin | CPT/HCPCS: 82947; 99212 ==

== ENCOUNTER 2023-08-05 14:09 | Outpatient (AMB) | payer MEDICARE, MEDICAID, SELFPAY ==
[2023-08-05 14:19] VITALS: PULSE 65; O2SAT 99; BMI 43.6
--- NOTE | 2023-08-05 14:19 | A.OFFVIS_ITS ---
Vital Signs 08/05/23 14:19 Height 5 ft 1 in Weight 231 lb BMI 43.6 Pulse 65 Pulse Source Pulse Oximeter Pulse Oximetry (%) 99 Oxygen Delivery Method Room Air Intake Visit Reasons: copd Preschool Assistant Required: No Allergies penicillin G Allergy (Severe, Verified 08/05/23 14:20) Itching latex Allergy (Intermediate, Verified 08/05/23 14:20) Itching nitrofurantoin Allergy (Intermediate, Verified 08/05/23 14:20) itching and redness (in the legs) HPI Comments Details: The patient is a 68-year-old woman known carcinoid tumor status post resection. The patient also has a history of asthma and obstructive sleep apnea. She has been using the new respironic dream station. She is using more than 4 hours a night. However, she has not gotten any supplies. I did call her [employer] company and sent they will facilitate some supplies. In the meantime I did provide her mask F30 that she can try. Her asthma appears to be stable with the current respiratory medications. She has not had to use her rescue inhaler and she has not to use prednisone. She has been complaining of some discomfort over the right flank area. . 03/20/2022 the patient is here for a pulmonary follow-up visit. The patient continues to complain of significant daytime drowsiness. She has not been able to use her CPAP in no longer getting supplies. Her CPAP was recalled and she has not been able to get a replacement. The patient is very concerned because she is getting worsening daytime drowsiness and headaches in the morning. Her Hartford score is elevated at 14 over 24. at this time the patient needs to get a repeat sleep study to get reestablished with the [employer] company in order to get a new CPAP. in the meantime the patient is concerned about her pulmonary nodules. I did reassure her that they have not changed. She does carry history of carcinoid. The patient does not have any evidence of any recurrence at this time. She has a scheduled CT scan for September 2022. She continues use her inhalers. Although there is a discrepancy at the pharmacy with Spiriva and Stiolto. I will make sure to clarify that at the pharmacy. She is is using the Flovent and she will continue to use the Stiolto at this time. The patient will need a sleep study will follow-up in a couple months. 06/05/2022 the patient is here for pulmonary follow-up visit. She continues to have significant daytime drowsiness. Her Hartford score still very elevated 03/07. She is struggling without her CPAP. She was diagnosed with sleep apnea in the past and had been responding well to CPAP. Her last home sleep study did not demonstrate a evidence of any sleep apnea. Although, the patient states that she had a hard time with it and she could barely sleep with as she was concerned about all the connections. Therefore, in view of her history of sleep apnea and ongoing daytime drowsiness will get a in-lab sleep study to get more accurate information. The patient is requesting to put a [facility]. Will go ahead and order it for her as I do believe that she also has sleep apnea not being identified in the limited home sleep study. From a carcinoid standpoint she has been doing well. Last CT scan was reassuring no evidence of any recurrence. She is up for a CAT scan sometime in the summer of 2022 which is a year follow-up. She has small pulmonary nodules that may indeed be tumor lytes. They have not changed which is reassuring. She continues use her respiratory medicines with good effect. Has not had to use any prednisone. She did start the biologic injections in seem to be helping her mitigate her symptoms and minimize the use of prednisone. 09/21/2022 this is a telehealth visit. The patient has been having worsening asthma symptoms. Complaining of cough chest congestion and chest tightness and wheezing. Moderate severity. Has been sick now for about 4-5 days. Denies any fevers or chills. She is running out of her medications. I will make sure to send her bronchodilator therapy to the pharmacy. She continues use her maintenance medications as prescribed. In addition to this the patient is concerned because she is having right-sided chest discomfort. She is concerned about a history of carcinoid tumor. She does have a CT scan scheduled for sometime in mid to late October of this year. Will go ahead and requested a little bit sooner. The patient could not make it to her appointment today. If however her symptoms are no better she needs to reschedule and come in to be evaluated. Also to note the patient continues to have daytime drowsiness with an elevated Hartford score of 11/24. She already had a home sleep study in April 2022 demonstrating no evidence of sleep apnea, and then had a an in-lab PSG at [facility] in August 2022 also demonstrating no evidence of sleep apnea. Therefore the patient will continue with positional therapy and no need for Pap therapy at this time. 03/25/2023 the patient is here for pulmonary follow-up visit. Overall she is doing better. She did complain the prednisone and the antibiotics during the last visit. Her chest discomfort is better. We did discuss and review the images from her last CT scan back in September 2022 with stable postoperative changes stable pulmonary nodules. She is due for repeat CT scan in September 2023. she continues use respiratory therapy with good effect. Her sleeping is overall better. again, her sleep study did not demonstrate any sleep apnea. She is using the Stiolto in the Flovent. These inhalers have been effective. Her respiratory exam is reassuring. The patient continues to do well will consider minimizing the inhaled steroid component. 08/05/2023 the patient is here for a pulmonary follow-up visit. The patient is still no better. She is still coughing. She had called a few weeks ago and I did send her a course of doxycycline. She did not feel like she completely improved she still having hard time with cough. Moderate severity. Denies any wheezing or chest tightness. She denies any fevers or chills. In addition to that she has been complaining of significant daytime drowsiness. She had been on CPAP before we had gotten multiple sleep studies but they have been negative for any sleep apnea. Although these were home sleep studies and the patient was not able to adequately sleep well during the study. She does have an elevated Hartford score of 13/24. She does have cardiovascular risk factors. She also carries a diagnosis of sleep apnea. Will go ahead and request a repeat in-lab sleep study in order to get her back on CPAP. The patient also been followed closely for carcinoid lung cancer. The patient also has multiple pulmonary nodules that are being followed. Her last CT scan was 11/01/2022 and she is due for CT scan in 2023. Will go ahead and follow up with the patient after her CT scan in her sleep study. In the meantime will send her a 2nd course of antibiotics to treat her for bronchitis. She does not have any wheezing so therefore hold off on any prednisone. [facility] Medical History Chest pain Calcific tendinitis of left shoulder Weakness of left upper extremity Weakness of both lower extremities Joint pain in fingers of both hands Joint pain in both hands Bilateral knee pain Vitamin B12 deficiency Bilateral ankle pain Rash Right foot pain Medicare annual wellness visit, subsequent Cervical cancer screening Bronchopneumonia Chronic low back pain Bilateral foot pain Bilateral hip pain Annual physical exam Stool incontinence Hyperlipidemia LDL goal <70 Bilateral hip pain Fibromyalgia Chronic bronchitis Vitamin D deficiency Post-thoracotomy pain syndrome COPD (chronic obstructive pulmonary disease) Depression Anxiety Type 2 diabetes mellitus with diabetic polyneuropathy Pulmonary nodules Allergic rhinitis GERD (gastroesophageal reflux disease) Morbid obesity with BMI of 40.0-44.9, adult Asthma Obstructive sleep apnea Lumbar degenerative disc disease Carcinoid tumor Coronary artery disease Benign essential hypertension Type 2 diabetes mellitus with hyperglycemia, with long-term current use of insulin Surgical History History of colonoscopy (~12/2013) History of tubal ligation History of lung biopsy (~07/2016) History of esophagogastroduodenoscopy (EGD) (~10/2011) History of lobectomy of lung (~08/2016) History of rectal sphincterotomy (~11/2013) History of cardiac cath (~07/2018) Family History Father Stroke Hypertension Diabetes Mother Diabetes Hypertension Other Arthritis Lupus Social History Household Members: Spouse Housing: Apartment Alcohol intake: never Patient Tobacco Use Status: Former Tobacco user Tobacco use type: Cigarette e-Cigarette/Vaping Use: Never Used Second Hand Smoke Exposure: Yes service: No Current occupational status: disabled Cognitive needs: No Hearing needs: No Vision needs: Yes Review of Systems Const Reports difficulty sleeping, Denies fatigue, Denies fever(s), Denies night sweats, Denies poor appetite, Reports snoring and Denies weight loss ENT Reports Normal hearing present, Denies dental pain, Denies dysphagia, Denies hearing loss, Denies mouth pain, Denies odynophagia, Denies throat swelling, Denies tongue swelling and Reports other (Dentition adequate) Card Reports chest pain and Reports dyspnea on exertion Resp Reports chest congestion, Reports cough, Reports dyspnea on exertion, Reports snoring and Reports wheezing GI Denies abdominal pain, Denies melena, Reports bloating, Denies hematochezia, Denies constipation, Denies GI cramping, Denies dysphagia, Denies excessive flatus, Denies early satiety, Reports heartburn, Denies nausea, Denies odynophagia, Denies vomiting and Denies hematemesis Musc Reports no additional complaints and Reports myalgias Skin/Breast Denies pruritus, Denies lesions, Denies rash and Denies jaundice Neuro Reports Normal hearing present and Denies Abnormal speech present Endo Denies fatigue Aller/Immun Denies throat swelling, Denies tongue swelling and Reports wheezing Physical Exam Vital Signs: Last Vital Signs Pulse 65 08/05/23 14:19 Pulse Ox 99 08/05/23 14:19 Oxygen Delivery Method Room Air 08/05/23 14:19 BMI result Body Mass Index 43.6 Const Orientation/consciousness: patient oriented x3 Neck Thyroid: Thyroid normal Lymphatic: no lymphadenopathy noted Resp Auscultation: diminished lung sounds Cardio Rate: regular rate Rhythm: regular rhythm Heart sounds: S1 normal heart sound present and S2 normal heart sound present Skin General skin exam: no rashes or lesions noted Neuro General: patient oriented x3, gait normal and no focal motor deficits Cranial nerves: Yes Normal hearing present Speech: No Abnormal speech present Extrem Other: sensation intact General: Yes normal to inspection, Yes full ROM and Yes capillary refill normal Assessment & Plan Assessment & Plan (1) Asthma: Code(s): J45.909 - Unspecified asthma, uncomplicated Category: Medical Qualifiers: Asthma severity: moderate Asthma persistence: persistent Asthma complication type: with acute exacerbation Qualified Code(s): J45.41 - Moderate persistent asthma with (acute) exacerbation (2) Carcinoid tumor: Comment: (S/P RUL lobectomy at [facility] [place] - 08/2016) Code(s): D3A.00 - Benign carcinoid tumor of unspecified site Category: Medical Qualifiers: Carcinoid tumor malignancy status: malignant Carcinoid tumor location: lung Qualified Code(s): C7A.090 - Malignant carcinoid tumor of the bronchus and lung (3) Post-thoracotomy pain syndrome: Code(s): G89.12 - Acute post-thoracotomy pain Category: Medical (4) Pulmonary nodules: Comment: Likely tumorlets Code(s): R91.8 - Other nonspecific abnormal finding of lung field Category: Medical (5) Obstructive sleep apnea: Comment: no evidence of ILDEFONSO on recent inlab PSG Code(s): G47.33 - Obstructive sleep apnea (adult) (pediatric) Category: Medical Plan continue Flovent continue Stiolto daily SANGITA as needed nebulizer as needed Claritin continue Singulair in lab PSG start Vantin cough medicine Repeat CT chest 10/2023 F/U 4 months Orders: Orders RT PSG in-lab sleep study 08/05/23 G47.33 - Obstructive sleep apnea (adult) (pediatric) Medications: New benzonatate 200 mg PO BID PRN 60 caps 0RF cough 30 days cefpodoxime must administer with a meal/food 200 mg PO BID 20 tabs 0RF 10 days Discontinued insulin detemir U-100 (Levemir FlexPen) STOP Lantus Discontinued Reason: Doctor's Order 10 units (0.1 mL) subcut BEDTIME 30 days 3 mL 3RF Coding Level of Care Code Est Pt Level 4 (48747) Diagnoses Moderate persistent asthma with acute exacerbation J45.41 Asthma severity: moderate Asthma persistence: persistent Asthma complication type: with acute exacerbation 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 Carcinoid tumor malignancy status: malignant Carcinoid tumor location: lung 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
== END 2023-08-05 14:42 | disposition home or self-care (01) ==
PROVIDERS: PCP Internal Medicine; Visit Provider Hospitalist
DX: J45.41 Moderate persistent asthma with (acute) exacerbation (principal); C7A.090 Malignant carcinoid tumor of the bronchus and lung; G89.12 Acute post-thoracotomy pain; R91.8 Other nonspecific abnormal finding of lung field; G47.33 Obstructive sleep apnea (adult) (pediatric)
CPT/HCPCS: 99214

== ENCOUNTER → 2023-08-05 14:09 | Outpatient (BNVA) | payer MEDICARE, MEDICAID, SELFPAY | PROVIDERS: PCP Internal Medicine; Visit Provider Hospitalist | DX: J44.9 Chronic obstructive pulmonary disease, unspecified (principal); J45.41 Moderate persistent asthma with (acute) exacerbation; C7A.090 Malignant carcinoid tumor of the bronchus and lung; G89.12 Acute post-thoracotomy pain; G47.33 Obstructive sleep apnea (adult) (pediatric); R91.8 Other nonspecific abnormal finding of lung field | CPT/HCPCS: 99212 ==

== ENCOUNTER 2023-08-17 10:35 | Emergency (ER) | payer MEDICARE, MEDICAID, SELFPAY ==
--- NOTE | ~2023-08-17 | XR_ITS ---
EXAMINATION: XR CHEST CLINICAL INFORMATION: Dyspnea. COMPARISON: 05/27/2023, 07/29/2022. TECHNIQUE: 2 views of the chest were obtained. FINDINGS: There is no gross pneumothorax. Dextroscoliosis of the thoracic spine with multilevel degenerative changes. Heart size is normal. Diffuse bilateral, predominantly perihilar interstitial opacities characteristic of bronchial wall thickening are similar in appearance, redemonstrated. Focal increased opacity in the lower left lung may possibly represent pneumonia. No pleural effusion. XR/XR chest 2V IMPRESSION: Diffuse bilateral, predominantly perihilar interstitial opacities characteristic of bronchial wall thickening redemonstrated. Focal increased opacity in the lower left lung may possibly represent pneumonia. This study was presented today August 17, 2023 for interpretation. Stat results provided at this time as requested by referring provider.
[2023-08-17 10:41] VITALS: BP 135/65; PULSE 89; RESP 20; TEMP 37.1; O2SAT 100; BMI 43.5
[2023-08-17 11:18] LABS: MANUAL DIFF FLAG NO
[2023-08-17 11:19] LABS: Basophils Absolute Auto 0.1 X10*3/uL (0.0-0.2); Basophils Percent Auto 0.9 % (0-2); Eosinophils Absolute Auto 0.2 X10*3/uL (0.0-0.4); Eosinophils Percent Auto 1.8 % (0-4); Hematocrit 38.9 % (37.0-47.0); Hemoglobin 12.8 g/dl (12.0-16.0); Imm Gran Abs Auto 0.12 X10*3/uL (0.00-0.03); Imm Gran Pct Auto 1.2 % (0.0-0.4); Lymphocytes Absolute Auto 2.1 X10*3/uL (1.2-4.9); Lymphocytes Percent Auto 20.9 % (20-40); Mean Corpuscular HGB Conc 32.9 g/dl (31.0-35.0); Mean Corpuscular Hemoglobin 27.9 pg (27.0-33.0); Mean Corpuscular Volume 84.9 fL (80.0-98.0); Mean Platelet Volume 10.5 fL (9.4-12.3); Monocytes Absolute Auto 0.9 X10*3/uL (0.1-1.2); Monocytes Percent Auto 8.7 % (2-11); Neutrophils Absolute Auto 6.8 x10*3/uL (2.0-8.3); Neutrophils Percent Auto 66.5 % (45-73); Platelet Count 360 X10*3/uL (160-400); Red Blood Count 4.58 X10*6/uL (4.20-5.50); Red Cell Distribution Width 14.7 % (11.0-16.0); White Blood Count 10.3 X10*3/uL (4.8-10.8)
[2023-08-17 11:34] LABS: Alanine Aminotransferase 11 U/L (0-31); Alkaline Phosphatase 136 U/L (39-117); Anion Gap 14 (12-20); Aspartate Amino Transferase 27 U/L (5-31); Bilirubin Total 0.7 mg/dL (0.0-1.0); Blood Urea Nitrogen 13 mg/dL (9-16); Calcium 9.7 mg/dL (8.4-10.2); Carbon Dioxide 29 mmol/L (22-29); Chloride 102 mmol/L (96-108); Creatinine Clr Calc Pharmacy 73.9; Estimated Glomerular Filt Rate > 60; Glucose Random 203 mg/dL (60-115); Sodium 141 mmol/L (135-145); Total Protein 7.6 g/dL (6.5-8.0)
[2023-08-17 11:58] LABS: Influenza A PCR NEGATIVE (Negative); Influenza B PCR NEGATIVE (Negative); Resp Syncy Virus RNA Qual PCR NEGATIVE (Negative); SARS COV2 PCR INHOUSE NEGATIVE (Negative)
[2023-08-17] MEDS: Acetaminophen 325 MG TABLET 975 MG PO (12:22)
== END 2023-08-17 15:33 | disposition left against medical advice (07) ==
LOC: HO.ED 15:27
PROVIDERS: Emergency Provider Emergency Medicine; PCP Internal Medicine
DX: R06.00 Dyspnea, unspecified (principal); R05.9 Cough, unspecified; Z11.52 Encounter for screening for COVID-19
CPT/HCPCS: 0241U; 71046; 80053; 85025; 99282; 99283

== ENCOUNTER 2023-08-27 08:58 | Outpatient (REF) | payer MEDICARE, MEDICAID, SELFPAY ==
[2023-08-27 09:24] LABS: MANUAL DIFF FLAG NO
[2023-08-27 09:46] LABS: Basophils Absolute Auto 0.1 X10*3/uL (0.0-0.2); Basophils Percent Auto 0.7 % (0-2); Eosinophils Absolute Auto 0.4 X10*3/uL (0.0-0.4); Eosinophils Percent Auto 4.3 % (0-4); Hematocrit 36.8 % (37.0-47.0); Imm Gran Abs Auto 0.05 X10*3/uL (0.00-0.03); Imm Gran Pct Auto 0.5 % (0.0-0.4); Lymphocytes Absolute Auto 3.8 X10*3/uL (1.2-4.9); Lymphocytes Percent Auto 38.8 % (20-40); Mean Corpuscular HGB Conc 32.6 g/dl (31.0-35.0); Mean Corpuscular Hemoglobin 27.1 pg (27.0-33.0); Mean Corpuscular Volume 83.1 fL (80.0-98.0); Mean Platelet Volume 10.6 fL (9.4-12.3); Monocytes Absolute Auto 0.9 X10*3/uL (0.1-1.2); Monocytes Percent Auto 8.6 % (2-11); Neutrophils Absolute Auto 4.7 x10*3/uL (2.0-8.3); Neutrophils Percent Auto 47.1 % (45-73); Platelet Count 328 X10*3/uL (160-400); Red Blood Count 4.43 X10*6/uL (4.20-5.50); Red Cell Distribution Width 14.2 % (11.0-16.0); White Blood Count 9.9 X10*3/uL (4.8-10.8)
[2023-08-27 10:06] LABS: C Reactive Protein 0.47 mg/dL (< or = 0.50)
[2023-08-27 10:39] LABS: Erythrocyte Sedimentation Rate 34 MM/HR (0-20)
== END 2023-08-27 08:59 | disposition home or self-care (01) ==
LOC: HO.LAB 08:58
PROVIDERS: PCP Internal Medicine; Visit Provider Nurse Practitioner Family
DX: M19.012 Primary osteoarthritis, left shoulder (principal); M75.32 Calcific tendinitis of left shoulder; Z79.899 Other long term (current) drug therapy
CPT/HCPCS: 36415; 85025; 85652; 86140

== ENCOUNTER 2023-08-30 10:42 | Outpatient (AMB) | payer MEDICARE, MEDICAID, SELFPAY ==
--- NOTE | 2023-08-30 10:43 | A.OFFVIS_ITS ---
Vital Signs 08/30/23 10:47 Height 5 ft 1 in Weight 228 lb 9.91 oz BMI 43.2 BP 128/60 Blood Pressure Location Lt brachial Position Sitting Pulse 83 Pulse Source Pulse Oximeter Intake Visit Reasons: T2DM/CONFIRMED Intake Note: Patient present today to follow up on Type 2 Diabetes Mellitus. Patient receives DME supplies through: [employer] Last Diabetic Eye exam: August 16, 2023 Last Podiatry Visit: June 2023 Random Glucose: 185 mg/dl HgA1C: 7.3% 07/07/2023 Telemarketing Manager Required: Yes Telemarketing Manager Language: Drier Unloader Name: Marisabel, Medical Staff LM Information Interpreted: non-clinical & clinical Accompanied by: DECKER OPERATOR Allergies penicillin G Allergy (Severe, Verified 08/30/23 10:48) Itching latex Allergy (Intermediate, Verified 08/30/23 10:48) Itching nitrofurantoin Allergy (Intermediate, Verified 08/30/23 10:48) itching and redness (in the legs) Medication List - Last Reconciled 08/30/23 by Miriam Nix PA-C [ADULT BRIEFS (size XL) As directed] [ADULT PULL-UPS (size XL) As directed] albuterol sulfate 90 mcg/actuation 2 puffs inhalation QID PRN albuterol sulfate 2.5 mg (3 mL) inhalation Q4-6H PRN alcohol swabs 1 pad topical TID amitriptyline 25 mg PO BEDTIME aspirin 81 mg PO DAILY 90 days atorvastatin 40 mg PO DAILY benzonatate 200 mg PO BID PRN 30 days blood pressure monitor As directed blood sugar diagnostic (OneTouch Verio test strips) Three times a day blood sugar diagnostic (OneTouch Verio test strips) As directed tests 4X/day blood-glucose meter Three times a day blood-glucose meter (OneTouch Verio Flex Meter) As directed trsts 4 X/day cefpodoxime 200 mg PO BID 10 days cholecalciferol (vitamin D3) 50 mcg PO DAILY 90 days clotrimazole-betamethasone 1-0.05 % 1 appl topical BID PRN 7 days cyanocobalamin (vitamin B-12) 1,000 mcg PO DAILY 90 days dexlansoprazole 60 mg PO DAILY diclofenac sodium 1% (Arthritis Pain (diclofenac)) 2 grams topical QID PRN [DISPOSABLE WIPES As directed] duloxetine 60 mg PO DAILY escitalopram oxalate 5 mg PO DAILY famotidine 40 mg PO BEDTIME 15 days flash glucose scanning reader ([employer]aves[employer] Mary Ann 2 [place]) As directed flash glucose sensor (FreeStyle Mary Ann 2 Sensor kit) As directed change every 14 days fluticasone propionate 220 mcg/actuation (Flovent HFA) 1 puff PO BID fluticasone propionate 50 mcg/actuation 2 sprays intranasal DAILY 30 days [FOUR-PRONGED CANE As directed] furosemide 20 mg PO DAILY glucose 12 grams (3 x 4 gram) PO Q15M hydrochlorothiazide 25 mg PO DAILY 90 days hydrocortisone 2.5% 1 appl topical BID PRN ibuprofen 800 mg PO TID PRN ipratropium-albuterol 0.5 mg-3 mg(2.5 mg base)/3 mL 3 mL inhalation QID PRN lancets (OneTouch Delica Lancets) Three times a day lancets (FreeStyle Lancets) As directed three time a day lancets (OneTouch Delica Plus Lancet) As directed-tests 4 X/day lancets (FreeStyle Lancets) As directed lidocaine 5% (Lidoderm) 1 patch topical DAILY 30 days [LIGHTWEIGHT WALKER WITH SEAT walker with seat] linaclotide (Linzess) 72 mcg PO QAM loratadine 10 mg PO DAILY 90 days loratadine 10 mg PO DAILY PRN 90 days lorazepam 1 mg PO BID-TID PRN 30 days memantine 10 mg PO BID metformin 1 tablet in the morning and 2 tablets in evening PO; 30 days metoprolol succinate ER 50 mg PO DAILY montelukast 10 mg PO BEDTIME nebulizers As directed nystatin 1 appl topical TID pen needle, diabetic (BD Ultra-Fine Cindy Pen Needle) twice daily pen needle, diabetic (Comfort EZ Pen [place]) As directed injects once a day prednisone 40 mg (2 x 20 mg) PO DAILY 5 days pregabalin 200 mg PO Q8H 30 days [ROLLATOR with SEAT As directed] sertraline 50 mg PO DAILY Shower Chair As directed tiotropium-olodaterol 2.5-2.5 mcg/actuation (Stiolto Respimat) 2 puffs inhalation DAILY tizanidine 4 mg PO TID PRN tramadol 50 mg PO TID PRN 30 days umeclidinium-vilanterol 62.5-25 mcg/actuation (Anoro Ellipta) 1 inh inhalation DAILY valacyclovir 500 mg PO BID valsartan 320 mg PO DAILY HPI HPI T2DM/CONFIRMED: Details: Patient is 68 yo female with DM type 2 diagnosed around 2014, who presents for management her diabetes. Past medical history:DM2, HTN, HLD, COPD, ILDEFONSO, gastroparesis. Endo: The A1c last month was 7.3. -Micro and macrovascular complications: neuropathy -Diabetes medications: metformin 500 BID and she was supposed to be Trulicity 3 mg weekly and Levemir 20 units nightly but states that she has had insurance issues with the Levemir and has been unable to find the Trulicity. Her PCP switched her from Trulicity to mounjaro but she still is unable to get this medication. I then started her on Ozempic and she states that this has been going well. No nausea, vomiting or constipation. No abdominal pain or difficulty with eating. She stopped her insulin completely because she felt like it was causing low blood sugars. Her lowest reading was around 70. She had a brother from hypoglycemia and states that she is worried about something like this so she wants to be off of it completely. -Continuous glucose monitoring: Mary Ann download shows she is using the sensor 90 % of the time. Average glucose is 156 with G mi of 7.0% and variability 26.9%. 75% range with 25% hyperglycemia and no hypoglycemia -Eye exam: appt May 2023, upcoming appointment in August, denies retinopathy -Follows with Podiatry CV: Blood pressure today in the office is 126/60. She is currently on hydrochlorothiazide, metoprolol, and valsartan. Her cholesterol is controlled with atorvastatin 40 mg. Her last LDL was 80 [facility] Medical History Chest pain Calcific tendinitis of left shoulder Weakness of left upper extremity Weakness of both lower extremities Joint pain in fingers of both hands Joint pain in both hands Bilateral knee pain Vitamin B12 deficiency Bilateral ankle pain Rash Right foot pain Medicare annual wellness visit, subsequent Cervical cancer screening Bronchopneumonia Chronic low back pain Bilateral foot pain Bilateral hip pain Annual physical exam Stool incontinence Hyperlipidemia LDL goal <70 Bilateral hip pain Fibromyalgia Chronic bronchitis Vitamin D deficiency Post-thoracotomy pain syndrome COPD (chronic obstructive pulmonary disease) Depression Anxiety Type 2 diabetes mellitus with diabetic polyneuropathy Pulmonary nodules Allergic rhinitis GERD (gastroesophageal reflux disease) Morbid obesity with BMI of 40.0-44.9, adult Asthma Obstructive sleep apnea Lumbar degenerative disc disease Carcinoid tumor Coronary artery disease Benign essential hypertension Type 2 diabetes mellitus with hyperglycemia, with long-term current use of insulin Surgical History History of colonoscopy (~12/2013) History of tubal ligation History of lung biopsy (~07/2016) History of esophagogastroduodenoscopy (EGD) (~10/2011) History of lobectomy of lung (~08/2016) History of rectal sphincterotomy (~11/2013) History of cardiac cath (~07/2018) Family History Father Stroke Hypertension Diabetes Mother Diabetes Hypertension Other Arthritis Lupus Social History Household Members: Spouse Housing: Apartment Alcohol intake: never Patient Tobacco Use Status: Former Tobacco user Tobacco use type: Cigarette e-Cigarette/Vaping Use: Never Used Second Hand Smoke Exposure: Yes service: No Current occupational status: disabled Cognitive needs: No Hearing needs: No Vision needs: Yes Physical Exam Vital Signs: BMI result Body Mass Index 43.2 Const Orientation/consciousness: patient oriented x3 Neck Neck: Yes no lymphadenopathy Thyroid: Thyroid normal Carotids: no bruits Resp Auscultation: clear to auscultation bilaterally Cardio Rate: regular rate Rhythm: regular rhythm Heart sounds: S1 normal heart sound present and S2 normal heart sound present Peripheral pulses: dorsalis pedis present Neuro General: patient oriented x3, gait normal and no focal motor deficits Extrem Other: Skin intact. General: Yes normal to inspection Results Reviewed Results Reviewed: Laboratory Tests 08/17/23 08/27/23 11:10 09:22 WBC 9.9 RBC 4.43 Hgb 12.0 Hct 36.8 L Plt Count 328 Sodium 141 Potassium 4.0 Chloride 102 Carbon Dioxide 29 Anion Gap 14 BUN 13 Creatinine 0.81 Estim Creat Clear Calc 73.9 Estimated GFR > 60 Random Glucose 203 H Calcium 9.7 Total Bilirubin 0.7 AST 27 ALT 11 Alkaline Phosphatase 136 H Assessment & Plan Assessment & Plan (1) Type 2 diabetes mellitus with diabetic polyneuropathy: Code(s): E11.42 - Type 2 diabetes mellitus with diabetic polyneuropathy Category: Medical Qualifiers: Diabetes mellitus assisted insulin use: with assisted use Qualified Code(s): E11.42 - Type 2 diabetes mellitus with diabetic polyneuropathy; Z79.4 - snf (current) use of insulin Plan: Increased Ozempic. Continue metformin dosing. Discontinue insulin. Labs ordered today. Will follow-up in 3 months a complete labs prior to appointment. She will follow up sooner if any issues. (2) Benign essential hypertension: Code(s): I10 - Essential (primary) hypertension Category: Medical Plan: continue current treatment plan. Orders: Orders Comprehensive [place]. Panel Fast Today E11.42 - Type 2 diabetes mellitus with diabetic polyneuropathy, Z79.4 - parts counterman (current) use of insulin Hemoglobin A1c Today E11.42 - Type 2 diabetes mellitus with diabetic polyneurop athy, Z79.4 - snf (current) use of insulin Microalbumin, Random (w Creat) Today E11.42 - Type 2 diabetes mellitus with diabetic polyneuropathy, Z79.4 - parts counterman (current) use of insulin Medications: New semaglutide (Ozempic) 0.5 mg (0.736 mL) subcut QWEEK 3 mL 6RF Coding Level of Care Code Est Pt Level 4 (59039) Complex EM visit Add On G2211 Diagnoses Type 2 diabetes mellitus with diabetic polyneuropathy, with long-term current use of insulin E11.42; Z79.4 Diabetes mellitus terminal worker insulin use: with terminal worker use Benign essential hypertension I10
[2023-08-30 10:47] VITALS: BP 128/60; PULSE 83; BMI 43.2
[2023-08-30 11:00] LABS: Glucose, Whole Blood 185 mg/dL (60-115)
== END 2023-08-30 11:16 | disposition home or self-care (01) ==
PROVIDERS: PCP Internal Medicine; Visit Provider Physician Assistant
DX: E11.42 Type 2 diabetes mellitus with diabetic polyneuropathy (principal); Z79.4 Long term (current) use of insulin; I10 Essential (primary) hypertension
CPT/HCPCS: 99214; G2211

== ENCOUNTER → 2023-08-30 10:42 | Outpatient (BNVA) | payer MEDICARE, MEDICAID, SELFPAY | PROVIDERS: PCP Internal Medicine; Visit Provider Physician Assistant | DX: E11.42 Type 2 diabetes mellitus with diabetic polyneuropathy (principal); I10 Essential (primary) hypertension; Z79.4 Long term (current) use of insulin | CPT/HCPCS: 82947; 99212 ==

== ENCOUNTER 2023-09-03 10:52 | Outpatient (AMB) | payer MEDICARE, MEDICAID, SELFPAY ==
--- NOTE | 2023-09-03 10:53 | MHC.OFFVIS ---
Vital Signs 09/03/23 11:01 Height 5 ft 1 in Weight 229 lb 4.492 oz BMI 43.3 BP 126/68 Blood Pressure Location Rt brachial Position Sitting Intake Visit Reasons: R shoulder Intake Note: Pain well controlled on current medications. Optimization Consultant Required: Yes Optimization Consultant Language: Ui Application Developer Name: Ayla Bello Accompanied by: [employer] Irma Allergies penicillin G Allergy (Severe, Verified 09/03/23 11:02) Itching latex Allergy (Intermediate, Verified 09/03/23 11:02) Itching nitrofurantoin Allergy (Intermediate, Verified 09/03/23 11:02) itching and redness (in the legs) HPI Comments Details: Ms. Garcia is a very pleasant 67 year old female who returns with her [employer] for follow-up of evaluation her chronic joint pain and osteoarthritis. The cortisone injection to left knee was helpful. She continues with pain the left shoulder and is unable to lift it past 90 degrees. She continues to take Lyrica 200mg Q8, Tramadol 50 mg TID, Duloxetine 60mg QD, and Ibuprofen 800mg, diclofenac gel, lidocaine 5 %patches to right lower back. She has diabetic neuropathy to bilateral feet. Since last visit: --saw operations manager station for f/u - was given Abx and prednisone --Past medical history:DM2, HTN, HLD, COPD, ILDEFONSO, gastroparesis --Micro and macrovascular complications: neuropathy Initial History: Ms. Garcia is a very pleasant 67 year old female who presents with her [employer] for evaluation and management of her chronic joint pain. Patient recently evaluated by Dr Duggan for bilateral knee OA, and was referred to pain management for her lower back pain and pain management refer her to rheumatology. She reports that she is weak and in pain especially to her left shoulder, her knees and feet. This has been going on for a long time but has gotten worse in the last year. She has tried muscle relaxers, NSAIDs and Tramadol with limited benefit. She is currently taking lyrica and Ibuprofen, prescribed by PCP with some relief of her to her back pain but not much to the other joints. She also uses topical lidocaine patches to right lower back and states that helps. She says this level of pain is negatively impacting her general activity, mood and makes it difficult to walk. She also c/o pain, burning, numbness and tingling to bilateral feet. Reports having EMG in the past and was told she has diabetic neuropathy. She reports she had steroid injections in both knees but cannot remember when was the last one Patient denies Raynaud's phenomenon, butterfly rash on face. She had a recent rashes to right upper arm and was treated with topical steroids - it is resolved; denies photosensitivity - getting sick or developing a rash from being out in the sun; denies blood or froth in urine; patient denies hx of SOB, chest pain. Patient denies hx of Carditis or Pleuritis. Patient denies any history of DVT/PE. The patient reports never have had o take aspirin or a blood thinner during her successful pregnancies. Denies fevers, excessive fatigue, unexplained weight-loss or weight-gain, Denies: thinning hair or hair loss Denies: dry, itchy eyes, red burning eyes needing steroids to treat; dry mouth, mouth sores or ulcers; nose bleed; ringing in the ear, Denies abdominal pain, blood or mucous in stool; nausea, vomiting and diarrhea , difficulty swallowing, has heartburn and takes medication. She reports morning stiffness lasting the whole day. She denies seeing her joints red. She reports the knees swell sometimes but is not sure if they get warm. Hx of Right Lung Ca 2020 - under monitoring. Uptodate malignancy screening for colonoscopy, mammogram She does not remember if she has done a bone density scan. After visit Findings: Left knee injections Cardiac and vascular consults for leg swelling Podiatry for fungal nail care [facility] Medical History Chest pain Calcific tendinitis of left shoulder Weakness of left upper extremity Weakness of both lower extremities Joint pain in fingers of both hands Joint pain in both hands Bilateral knee pain Vitamin B12 deficiency Bilateral ankle pain Rash Right foot pain Medicare annual wellness visit, subsequent Cervical cancer screening Bronchopneumonia Chronic low back pain Bilateral foot pain Bilateral hip pain Annual physical exam Stool incontinence Hyperlipidemia LDL goal <70 Bilateral hip pain Fibromyalgia Chronic bronchitis Vitamin D deficiency Post-thoracotomy pain syndrome COPD (chronic obstructive pulmonary disease) Depression Anxiety Type 2 diabetes mellitus with diabetic polyneuropathy Pulmonary nodules Allergic rhinitis GERD (gastroesophageal reflux disease) Morbid obesity with BMI of 40.0-44.9, adult Asthma Obstructive sleep apnea Lumbar degenerative disc disease Carcinoid tumor Coronary artery disease Benign essential hypertension Type 2 diabetes mellitus with hyperglycemia, with long-term current use of insulin Surgical History History of colonoscopy (~12/2013) History of tubal ligation History of lung biopsy (~07/2016) History of esophagogastroduodenoscopy (EGD) (~10/2011) History of lobectomy of lung (~08/2016) History of rectal sphincterotomy (~11/2013) History of cardiac cath (~07/2018) Family History Father Stroke Hypertension Diabetes Mother Diabetes Hypertension Other Arthritis Lupus Social History Household Members: Spouse Housing: Apartment Alcohol intake: never Patient Tobacco Use Status: Former Tobacco user Tobacco use type: Cigarette e-Cigarette/Vaping Use: Never Used Second Hand Smoke Exposure: Yes service: No Current occupational status: disabled Cognitive needs: No Hearing needs: No Vision needs: Yes Review of Systems Const All systems reviewed & are unremarkable except as noted in HPI and below Physical Exam Vital Signs: Last Vital Signs BP 126/68 09/03/23 11:01 BMI result Body Mass Index 43.3 APPEARANCE: Patient in no acute distress, obese EYES no redness, pupils equal and reactive to light, eyelids normal EARS:? External ear normal, canal clear and tympanic membrane normal. NOSE/SINUS:? Airflow through both nares, no nasal discharge, no bleeding THROAT:? Oral mucosa moist, no ulcerations NECK:? No thyromegaly or masses, no adenopathy, trachea midline. HEART:? Regular rhythm, S1-S2 heard, no murmurs, rubs or gallops. LUNG:? Clear to percussion and auscultation, decreased in the bases ABD:? Normal bowel sounds, no organomegaly, masses or tenderness. larged abdomen, soft EXTREMITIES:? trace edema, no calf tenderness, normal peripheral pulses. Upper extremities strength 3/5 right 2/5 left. NEURO:? Oriented and alert x3.? No focal weakness.? Reflexes symmetric.? Gait normal. SKIN:? There are no skin lesions evident. No objective signs of Raynaud's phenomenon. JOINT EXAM: ?Cervical Spine:.? Full range of motion without pain; no tenderness. Thoracic Spine:.? No scoliosis.? No tenderness on palpation. Lumbar Spine:.? Alignment normal.? Full range of motion without pain, no tenderness. Chest Wall:.? No tenderness, swelling, increased warmth or erythema. Hands:.? Normal pain-free range of motion - mild tenderness to DIP joints with bony enlargements, no swelling, increased warmth or erythema. Able to make a full fist and has a good housekeeping attendant strength. Wrists:.? Normal pain-free range of motion without tenderness, swelling, increased warmth or erythema. Elbows:. Normal pain-free range of motion, mild tenderness at bilateral lateral epicondyle, no swelling, increased warmth or erythema. Shoulders:.?? Moderate tenderness, weakness, no swelling, increased warmth or erythema. Unable to lift left shoulder past breast. marked tenderness at tendons Hips:.? limited range of motion with pain. Trochanteric tenderness, gluteal tenderness Hip bursa:.? Tenderness to trochanteric area Left > right, 9/10 Left piriformis muscle tenderness Knees:.??Quad strength 3/5 right, 2/5 left. Bilateral limited range of motion with tenderness, mild swelling, no increased warmth or erythema.? There is mild effusion Ankles:.? Normal range of motion with mild pain. tenderness to bilateral achilles, no swelling, increased warmth or erythema. Feet:.? Normal range of motion. moderate tenderness across metatarsals, trace swelling to dorsum, no increased warmth or erythema. Tender points:? No tenderness to digital palpation at the occiput, second rib; Tender trapezius, lateral epicondyle, knees, greater trochanter and gluteal area bilaterally. Results Reviewed Results Reviewed: Laboratory Tests 08/17/23 08/27/23 11:10 09:22 WBC 9.9 RBC 4.43 Hgb 12.0 Hct 36.8 L Plt Count 328 Sodium 141 Potassium 4.0 Chloride 102 Carbon Dioxide 29 Anion Gap 14 BUN 13 Creatinine 0.81 Estim Creat Clear Calc 73.9 Estimated GFR > 60 Random Glucose 203 H Calcium 9.7 Total Bilirubin 0.7 AST 27 ALT 11 Alkaline Phosphatase 136 H Laboratory Tests 08/17/23 08/27/23 11:10 09:22 ESR 34 H AST 27 ALT 11 Assessment & Plan Assessment & Plan (1) Joint pain in both hands: Code(s): M25.541 - Pain in joints of right hand; M25.542 - Pain in joints of left hand Category: Medical (2) Joint pain in fingers of both hands: Code(s): M25.541 - Pain in joints of right hand; M25.542 - Pain in joints of left hand Category: Medical (3) Bilateral knee pain: Code(s): M25.561 - Pain in right knee; M25.562 - Pain in left knee Category: Medical Qualifiers: Chronicity: chronic Qualified Code(s): M25.561 - Pain in right knee; M25.562 - Pain in left knee; G89.29 - Other chronic pain (4) Weakness of both lower extremities: Code(s): R29.898 - Other symptoms and signs involving the musculoskeletal system Category: Medical (5) Weakness of left upper extremity: Code(s): R29.898 - Other symptoms and signs involving the musculoskeletal system Category: Medical (6) Pes anserine bursitis: Code(s): M70.50 - Other bursitis of knee, unspecified knee (7) Trochanteric bursitis of left hip: Code(s): M70.62 - Trochanteric bursitis, left hip (8) Osteoarthritis of left knee: Code(s): M17.12 - Unilateral primary osteoarthritis, left knee Category: Medical Qualifiers: Osteoarthritis type: primary Qualified Code(s): M17.12 - Unilateral primary osteoarthritis, left knee (9) Calcific tendinitis of left shoulder: Code(s): M75.32 - Calcific tendinitis of left shoulder Plan: Prior: An in dept review of the images over the last 3 years, shows that there is progression in the calcific tendinitis of several joints, most severely in the the left shoulder. Lifting the left arm causes the patient much pain, to the point of inferred weakness. Moderate enthesitis in both Achilles and moderate calcaneal spurs are also present along with hypertrophic changes in her foot - this clinically correlates. One wonders with such prevalence of enthesitis, would PsA, be reasonable to consider. However, Calcific tendonitis can also be prevalent in T2DM and patient has long standing history. She did receive a steroid injection to the left shoulder, but denied relief, she has an appt to follow-up with Pain Management (PM). There is much overlap going on with her care. I see where PM (11/17/22 visit) has referred her to PT - Patient states she was not aware. I also have referred her to PT referral. (10) Primary osteoarthritis, left shoulder: Code(s): M19.012 - Primary osteoarthritis, left shoulder Category: Medical Plan Ms. Garcia 67 yoF returns for f/u. Except for her left knee, her areas of pain remains consistent as at last visit. She continue to demonstrate more weakness with the left arm. She did not hear from PT so we will check on that. Her labs are grossly OK. elevated sed rate 34 down from 40 - stable. She has been on prednisone from [facility] for cough, now doing 40mg QD, but cannot say that this helps her joint pain. She will continue to take Lyrica 200mg Q8, Tramadol 50 mg TID, Duloxetine 60mg QD, and Ibuprofen 800mg, diclofenac gel, lidocaine 5 %patches to right lower back. She has diabetic neuropathy to bilateral feet. #Weakness of Extremities: left upper arm weakness, and weakness of lower extremities. On PE she does have a good strong grasp in the right hand, 4/5 but at 2/5 on the left. Patient finds that she has to use a walker for support when she walks. She also difficulty sitting and standing from the toilet and would like a toilet seat to help her with that. She is concerned that she is losing her independence and is afraid she will end up like her brother whom she says has muscular dystrophy and is unable to keep himself upright and had to be strapped and harnessed to be held upright. On PE her strength testing against my resistance was at best 2 to 3/5, left sides weaker than the right. Significant weakness to the she left shoulder where she cannot lift her left arm past her breast. Patient says she was evaluated by Orthopedic and had received trigger point injection without improvement but she has to follow-up. I still think patient will benefit from physical therapy for strengthening. Per patient, she was not called for PT. She does want to do it so I will look into this again. I reminded patient that initially physical therapy will not seem comfortable but if she sticks to it she will see some benefit. I also encouraged that she continues to do the exercises at home. #Bursitis/Knee pain/OA: Left knee improved with corticosteroid injection at 01/2023 visit. #Calcific Tendinitis Left Shoulder. Decreased ROM and pain on Palpation. Will inject today with corticosteroids. Discussed with patient to rest the shoulder from exertion for the next 2 days. I also demonstrated some recommended wall exercises for her left shoulder. Next visit in 6 months to assess progress with PT I spent 20 minutes reviewing chart,evalauting patient, and documenting. Coding Level of Care Code Est Pt Level 3 (09458) Complex EM visit Add On G2211 Diagnoses Joint pain in both hands M25.541; M25.542 Joint pain in fingers of both hands M25.541; M25.542 Chronic pain of both knees M25.561; M25.562; G89.29 Chronicity: chronic Weakness of both lower extremities R29.898 Weakness of left upper extremity R29.898 Pes anserine bursitis M70.50 Trochanteric bursitis of left hip M70.62 Primary osteoarthritis of left knee M17.12 Osteoarthritis type: primary Calcific tendinitis of left shoulder M75.32 Primary osteoarthritis, left shoulder M19.012
[2023-09-03 11:01] VITALS: BP 126/68; BMI 43.3
== END 2023-09-03 11:22 | disposition home or self-care (01) ==
PROVIDERS: PCP Internal Medicine; Visit Provider Nurse Practitioner Family
DX: M25.541 Pain in joints of right hand (principal); M25.542 Pain in joints of left hand; M25.561 Pain in right knee; M25.562 Pain in left knee; G89.29 Other chronic pain; R29.898 Other symptoms and signs involving the musculoskeletal system; M70.50 Other bursitis of knee, unspecified knee; M70.62 Trochanteric bursitis, left hip; M17.12 Unilateral primary osteoarthritis, left knee; M75.32 Calcific tendinitis of left shoulder; M19.012 Primary osteoarthritis, left shoulder
CPT/HCPCS: 99213; G2211

== ENCOUNTER → 2023-09-03 10:52 | Outpatient (BNVA) | payer MEDICARE, MEDICAID, SELFPAY | PROVIDERS: PCP Internal Medicine; Visit Provider Nurse Practitioner Family | DX: M25.541 Pain in joints of right hand (principal); M25.542 Pain in joints of left hand; M25.561 Pain in right knee; M25.562 Pain in left knee; M70.50 Other bursitis of knee, unspecified knee; M17.12 Unilateral primary osteoarthritis, left knee; M70.62 Trochanteric bursitis, left hip; M75.32 Calcific tendinitis of left shoulder; M19.012 Primary osteoarthritis, left shoulder; G89.29 Other chronic pain; R29.898 Other symptoms and signs involving the musculoskeletal system | CPT/HCPCS: 99212 ==

== ENCOUNTER 2023-10-01 08:26 | Outpatient (REF) | payer MEDICARE, MEDICAID, SELFPAY ==
--- NOTE | ~2023-10-01 | FL_ITS ---
EXAMINATION: XR FLUOROSCOPY UPPER GI WITH AIR CLINICAL INFORMATION: GERD COMPARISON: None TECHNIQUE: Fluoroscopic air contrast upper GI examination was performed utilizing standard techniques with thin and thick barium and effervescent granules. Numerous spot images were obtained. FINDINGS: Lateral cine images of the oropharynx and hypopharynx demonstrate normal swallow mechanism with normal epiglottic inversion and soft palate elevation. No tracheal penetration, glottic or subglottic aspiration identified. No nasopharyngeal reflux present. A small pharyngeal pouch is present. 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 There is mild posterior indentation of the cervical esophagus due to a bridging anterior osteophyte at C6/C7. There was no significant cricopharyngeal achalasia. Dual and single contrast images of the esophagus demonstrate normal caliber, contour, and mucosal pattern. No evidence of stricture, mass, or ulcerations identified. Esophageal peristalsis was normal. A small to moderate size type I hiatal hernia is present. Gastroesophageal reflux is noted to the level of the midesophagus. Dual contrast and single contrast images of the stomach demonstrated a normal contour . Evaluation of the gastric mucosa is limited due to poor coating of the barium. No masses are seen. Contrast freely passed into the gastric antrum and duodenal bulb without delay. Single and air-contrast images of the duodenal bulb demonstrate no abnormality. The duodenal sweep has a normal appearance, course, and mucosal fold appearance. A moderate-sized diverticulum is present in segment 3 of the duodenum. The imaged proximal jejunum has a normal fold pattern and caliber. FLUOROSCOPY TIME: 4 minutes 11 seconds Number of Spot Images: 15 Number of Cine: 12 DOSE AREA PRODUCT: [id number] uGy-m2 (microgray-meter squared) FL/FL upper GI series IMPRESSION: 1. Small lateral pharyngeal pouch. 2. 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 Mild posterior indentation of the cervical esophagus due to a bridging anterior osteophyte at C6-C7. This is likely clinically insignificant. 4. Small a moderate-sized type I hiatal hernia with mild to moderate gastroesophageal reflux. 5. Limited evaluation of the gastric mucosa due to poor coating of the barium. 6. Moderate-sized diverticulum in segment 3 of the duodenum. This procedure was performed by Vito Aquino PA-C, and supervised by Dr. Amin
== END 2023-10-01 08:27 | disposition home or self-care (01) ==
LOC: HO.XRAY 08:26
PROVIDERS: PCP Internal Medicine; Visit Provider Internal Medicine
DX: J02.9 Acute pharyngitis, unspecified (principal); K21.9 Gastro-esophageal reflux disease without esophagitis
CPT/HCPCS: 74240

== ENCOUNTER → 2023-10-01 08:27 | Outpatient (BNV) | payer MEDICARE, MEDICAID, SELFPAY | PROVIDERS: PCP Internal Medicine; Visit Provider Physician Assistant Surgical | DX: K21.9 Gastro-esophageal reflux disease without esophagitis (principal) | CPT/HCPCS: 74246 ==

== ENCOUNTER 2023-11-11 10:55 | Outpatient (AMB) | payer OTHER, MEDICAID, SELFPAY ==
[2023-11-11 11:10] VITALS: PULSE 79; O2SAT 98; BMI 42.9
--- NOTE | 2023-11-11 11:10 | A.OFFVIS_ITS ---
Vital Signs 11/11/23 11:10 Height 5 ft 1 in Weight 227 lb 1.218 oz BMI 42.9 Pulse 79 Pulse Source Pulse Oximeter Pulse Oximetry (%) 98 Oxygen Delivery Method Room Air Intake Visit Reasons: copd Order Builder Required: No Allergies penicillin G Allergy (Severe, Verified 11/11/23 11:11) Itching latex Allergy (Intermediate, Verified 11/11/23 11:11) Itching nitrofurantoin Allergy (Intermediate, Verified 11/11/23 11:11) itching and redness (in the legs) HPI Comments Details: The patient is a 68-year-old woman known carcinoid tumor status post resection. The patient also has a history of asthma and obstructive sleep apnea. She has been using the new respironic dream station. She is using more than 4 hours a night. However, she has not gotten any supplies. I did call her [employer] and sent they will facilitate some supplies. In the meantime I did provide her mask F30 that she can try. Her asthma appears to be stable with the current respiratory medications. She has not had to use her rescue inhaler and she has not to use prednisone. She has been complaining of some discomfort over the right flank area. 03/25/2023 the patient is here for pulmonary follow-up visit. Overall she is doing better. She did complain the prednisone and the antibiotics during the last visit. Her chest discomfort is better. We did discuss and review the images from her last CT scan back in September 2022 with stable postoperative changes stable pulmonary nodules. She is due for repeat CT scan in September 2023. she continues use respiratory therapy with good effect. Her sleeping is overall better. again, her sleep study did not demonstrate any sleep apnea. She is using the Stiolto in the Flovent. These inhalers have been effective. Her respiratory exam is reassuring. The patient continues to do well will consider minimizing the inhaled steroid component. 08/05/2023 the patient is here for a pulmonary follow-up visit. The patient is still no better. She is still coughing. She had called a few weeks ago and I did send her a course of doxycycline. She did not feel like she completely improved she still having hard time with cough. Moderate severity. Denies any wheezing or chest tightness. She denies any fevers or chills. In addition to that she has been complaining of significant daytime drowsiness. She had been on CPAP before we had gotten multiple sleep studies but they have been negative for any sleep apnea. Although these were home sleep studies and the patient was not able to adequately sleep well during the study. She does have an elevated [place] score of 13/24. She does have cardiovascular risk factors. She also carries a diagnosis of sleep apnea. Will go ahead and request a repeat in-lab sleep study in order to get her back on CPAP. The patient also been followed closely for carcinoid lung cancer. The patient also has multiple pulmonary nodules that are being followed. Her last CT scan was 11/01/2022 and she is due for CT scan in 2023. Will go ahead and follow up with the patient after her CT scan in her sleep study. In the meantime will send her a 2nd course of antibiotics to treat her for bronchitis. She does not have any wheezing so therefore hold off on any prednisone. 11/11/2023 the patient is here for a pulmonary follow-up visit. The patient was in her usual state health until the last few months. She has not been feeling well she has had this productive cough now for several months. The last time she was here she was given Vantin but she did not feel like it helped. She still bringing up phlegm usually whitish or yellowish in color. Denies any hemoptysis. Typically sounds barky in nature. She has not underlying chronic bronchitis. Will going to go ahead and start her on azithromycin 3 times a week. In addition to that if she is no better she will get a sputum culture. She did have a CT scan of the chest done recently done on 10/18/[address] [facility]. It appears that she has a growing or new right upper lobe pulmonary nodule measuring 6 mm in size. The largest nodule that she had there a year ago was only 3 mm in size. Therefore, she is scheduled to go for repeat CT scan in 3-6 months. She will do that at [facility] as well. We did talk about the relevance of that. In the meantime will go ahead and treat her for the chronic bronchitis. She will continue with respiratory therapy. [facility] Medical History (Updated 11/11/23 @ 20:46 by Angelo Hoffmann MD) Chest pain Calcific tendinitis of left shoulder Weakness of left upper extremity Weakness of both lower extremities Joint pain in fingers of both hands Joint pain in both hands Bilateral knee pain Vitamin B12 deficiency Bilateral ankle pain Rash Right foot pain Medicare annual wellness visit, subsequent Cervical cancer screening Bronchopneumonia Chronic low back pain Bilateral foot pain Bilateral hip pain Annual physical exam Stool incontinence Hyperlipidemia LDL goal <70 Bilateral hip pain Fibromyalgia Chronic bronchitis Vitamin D deficiency Post-thoracotomy pain syndrome COPD (chronic obstructive pulmonary disease) Depression Anxiety Type 2 diabetes mellitus with diabetic polyneuropathy Pulmonary nodules Allergic rhinitis GERD (gastroesophageal reflux disease) Morbid obesity with BMI of 40.0-44.9, adult Asthma Obstructive sleep apnea Lumbar degenerative disc disease Carcinoid tumor Coronary artery disease Benign essential hypertension Type 2 diabetes mellitus with hyperglycemia, with long-term current use of insulin Surgical History History of colonoscopy (~12/2013) History of tubal ligation History of lung biopsy (~07/2016) History of esophagogastroduodenoscopy (EGD) (~10/2011) History of lobectomy of lung (~08/2016) History of rectal sphincterotomy (~11/2013) History of cardiac cath (~07/2018) Family History Father Stroke Hypertension Diabetes Mother Diabetes Hypertension Other Arthritis Lupus Social History Household Members: Spouse Housing: Apartment Alcohol intake: never Patient Tobacco Use Status: Former Tobacco user Tobacco use type: Cigarette e-Cigarette/Vaping Use: Never Used Second Hand Smoke Exposure: Yes service: No Current occupational status: disabled Cognitive needs: No Hearing needs: No Vision needs: Yes Review of Systems Const Reports difficulty sleeping, Denies fatigue, Denies fever(s), Denies night sweats, Denies poor appetite, Reports snoring and Denies weight loss ENT Reports Normal hearing present, Denies dental pain, Denies dysphagia, Denies hearing loss, Denies mouth pain, Denies odynophagia, Denies throat swelling, Denies tongue swelling and Reports other (Dentition adequate) Card Reports chest pain and Reports dyspnea on exertion Resp Reports change in phlegm color, Reports chest congestion, Reports cough, Reports dyspnea on exertion, Reports snoring and Reports wheezing GI Denies abdominal pain, Denies melena, Reports bloating, Denies hematochezia, Denies constipation, Denies GI cramping, Denies dysphagia, Denies excessive flatus, Denies early satiety, Reports heartburn, Denies nausea, Denies odynophagia, Denies vomiting and Denies hematemesis Musc Reports no additional complaints and Reports myalgias Skin/Breast Denies pruritus, Denies lesions, Denies rash and Denies jaundice Neuro Reports Normal hearing present and Denies Abnormal speech present Endo Denies fatigue Aller/Immun Denies throat swelling, Denies tongue swelling and Reports wheezing Physical Exam Vital Signs: Last Vital Signs Pulse 79 11/11/23 11:10 Pulse Ox 98 11/11/23 11:10 Oxygen Delivery Method Room Air 11/11/23 11:10 BMI result Body Mass Index 42.9 Const Orientation/consciousness: patient oriented x3 Neck Thyroid: Thyroid normal Lymphatic: no lymphadenopathy noted Resp Effort & Inspection: Actively coughing Quality: fake cough Auscultation: diminished lung sounds Cardio Rate: regular rate Rhythm: regular rhythm Heart sounds: S1 normal heart sound present and S2 normal heart sound present Skin General skin exam: no rashes or lesions noted Neuro General: patient oriented x3, gait normal and no focal motor deficits Cranial nerves: Yes Normal hearing present Speech: No Abnormal speech present Extrem Other: sensation intact General: Yes normal to inspection, Yes full ROM and Yes capillary refill normal Assessment & Plan Assessment & Plan (1) Asthma: Code(s): J45.909 - Unspecified asthma, uncomplicated Category: Medical Qualifiers: Asthma complication type: with acute exacerbation Asthma persistence: persistent Asthma severity: moderate Qualified Code(s): J45.41 - Moderate persistent asthma with (acute) exacerbation (2) Carcinoid tumor: Comment: ([place] [facility] [place] Code(s): D3A.00 - Benign carcinoid tumor of unspecified site Category: Medical Qualifiers: Carcinoid tumor location: lung Carcinoid tumor malignancy status: malignant Qualified Code(s): C7A.090 - Malignant carcinoid tumor of the bronchus and lung (3) Post-thoracotomy pain syndrome: Code(s): G89.12 - Acute post-thoracotomy pain Category: Medical (4) Pulmonary nodules: Comment: Likely tumorlets Code(s): R91.8 - Other nonspecific abnormal finding of lung field Category: Medical (5) Obstructive sleep apnea: Comment: no evidence of ILDEFONSO on recent inlab PSG Code(s): G47.33 - Obstructive sleep apnea (adult) (pediatric) Category: Medical (6) Chronic bronchitis: Code(s): J42 - Unspecified chronic bronchitis Category: Medical Qualifiers: Chronic bronchitis type: mucopurulent Qualified Code(s): J41.1 - Mucopurulent chronic bronchitis Plan continue Flovent continue Stiolto daily SANGITA as needed nebulizer as needed Claritin continue Singulair start Azithromycin MWF, EKG Repeat CT chest in 3-6 months per Thoracic surgery; RUL 6mm F/U 4 months Orders: Orders Sputum Cult + Gram stain Today J42 - Unspecified chronic bronchitis, R91.8 - Other nonspecific abnormal finding of lung field ECG 12 lead EKG Today J42 - Unspecified chronic bronchitis, J44.9 - Chronic obstructive pulmonary disease, unspecified, R91.8 - Other nonspecific abnormal finding of lung field Medications: Refilled dextromethorphan-guaifenesin 5-100 mg/5 mL (Robitussin Cough-Chest Congestion DM) 10 mL PO Q4-8H PRN 500 mL 3RF cough 14 days Coding Level of Care Code Est Pt Level 4 (18318) Complex EM visit Add On G2211 Diagnoses Moderate persistent asthma with acute exacerbation J45.41 Asthma complication type: with acute exacerbation Asthma persistence: persistent Asthma severity: moderate 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 Carcinoid tumor location: lung Carcinoid tumor malignancy status: malignant Post-thoracotomy pain syndrome G89.12 Pulmonary nodules R91.8 Obstructive sleep apnea G47.33 Mucopurulent chronic bronchitis J41.1 Chronic bronchitis type: mucopurulent Time Spent (min) 17
== END 2023-11-11 11:29 | disposition home or self-care (01) ==
PROVIDERS: PCP Internal Medicine; Visit Provider Hospitalist
DX: J45.41 Moderate persistent asthma with (acute) exacerbation (principal); C7A.090 Malignant carcinoid tumor of the bronchus and lung; G89.12 Acute post-thoracotomy pain; R91.8 Other nonspecific abnormal finding of lung field; G47.33 Obstructive sleep apnea (adult) (pediatric); J41.1 Mucopurulent chronic bronchitis
CPT/HCPCS: 99214; G2211

== ENCOUNTER → 2023-11-11 10:55 | Outpatient (BNVA) | payer MEDICARE, MEDICAID, SELFPAY | PROVIDERS: PCP Internal Medicine; Visit Provider Hospitalist | DX: J41.1 Mucopurulent chronic bronchitis (principal); J45.41 Moderate persistent asthma with (acute) exacerbation; C7A.090 Malignant carcinoid tumor of the bronchus and lung; R91.8 Other nonspecific abnormal finding of lung field; G89.12 Acute post-thoracotomy pain; G47.33 Obstructive sleep apnea (adult) (pediatric) | CPT/HCPCS: 99212 ==

== ENCOUNTER 2023-11-16 11:35 | Outpatient (AMB) | payer MEDICARE, MEDICAID, SELFPAY ==
[2023-11-16 11:39] VITALS: BP 109/67; PULSE 79; BMI 43.2
--- NOTE | 2023-11-16 11:39 | A.OFFVIS_ITS ---
Vital Signs 11/16/23 11:39 Height 5 ft 1 in Weight 228 lb 13.437 oz BMI 43.2 BP 109/67 Blood Pressure Location Lt brachial Position Sitting Pulse 79 Intake Visit Reasons: 6 month follow up Intake Note: Patient presents to in office visit today in 6 month follow up of [facility]. CC: Patient reports nausea, and poor appetite, she also c/o a cough for about a month. Patient states that she is having a lot of accidents usually at night. She state that she has a hemorrhoid outside for a long time and it does not go back inside. [employer] And [employer] Representative Required: No Accompanied by: Self / Same As Patient Allergies penicillin G Allergy (Severe, Verified 11/16/23 11:48) Itching latex Allergy (Intermediate, Verified 11/16/23 11:48) Itching nitrofurantoin Allergy (Intermediate, Verified 11/16/23 11:48) itching and redness (in the legs) HPI HPI 6 month follow up: Details: Assessment & Plan (1) Diabetic gastroparesis: Code(s): E11.43 - Type 2 diabetes mellitus with diabetic autonomic (poly)neuropathy; K31.84 - Gastroparesis (2) Chronic idiopathic constipation: Code(s): K59.04 - Chronic idiopathic constipation (3) GERD (gastroesophageal reflux disease): Code(s): K21.9 - Gastro-esophageal reflux disease without esophagitis Qualifiers: Esophagitis presence: without esophagitis Qualified Code(s): K21.9 - Gastro-esophageal reflux disease without esophagitis Plan [place] [facility]ev[facility] Live He continues on her Linzess in her Dexilant and the seem to be controlling her constipation and her GERD well. She is using the bentyl tid which is fine. With this, she also says that she had too many BM's on the 10mg reglan, she would prefer the 5mg so we will switch. She is satisfied now with her GI regimen. ROV 6 m os. Medications: Changed From dicyclomine take 2 tabs qhs and 1 tab tid prn orally 4 times a day; 90 days 180 tabs 2RF R10.9 - Unspecified abdominal pain To dicyclomine 20 mg PO QID 360 tabs 2RF 90 days R10.9 - Unspecified abdominal pain Refilled dexlansoprazole 60 mg PO DAILY 90 caps 1RF K59.04 - Chronic idiopathic constipation linaclotide (Linzess) 72 mcg PO QAM 30 caps 6RF K52.1 - Toxic gastroenteritis and colitis, K59.04 - Chronic idiopathic constipation Discontinued metoclopramide HCl Discontinued Reason: Doctor's Order 10 mg PO QIDACHS 120 tabs 6RF E11.43 - Type 2 diabetes mellitus with diabetic autonomic (poly)neuropathy, K31.84 - Gastroparesis, R11.2 - Nausea with vomiting, unspecified Resumed metoclopramide HCl (Reglan) 5 mg PO QIDACHS 120 tabs 6RF UPPER GI STUDY ORDERED BY PRIMARY CARE PROVIDER 10/04/23 FINDINGS: Lateral cine images of the oropharynx and hypopharynx demonstrate normal swallow mechanism with normal epiglottic inversion and soft palate elevation. No tracheal penetration, glottic or subglottic aspiration identified. No nasopharyngeal reflux present. A small pharyngeal pouch is present. 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 There is mild posterior indentation of the cervical esophagus due to a bridging anterior osteophyte at C6/C7. There was no significant cricopharyngeal achalasia. Dual and single contrast images of the esophagus demonstrate normal caliber, contour, and mucosal pattern. No evidence of stricture, mass, or ulcerations identified. Esophageal peristalsis was normal. A small to moderate size type I hiatal hernia is present. Gastroesophageal reflux is noted to the level of the midesophagus. Dual contrast and single contrast images of the stomach demonstrated a normal contour . Evaluation of the gastric mucosa is limited due to poor coating of the barium. No masses are seen. Contrast freely passed into the gastric antrum and duodenal bulb without delay. Single and air-contrast images of the duodenal bulb demonstrate no abnormality. The duodenal sweep has a normal appearance, course, and mucosal fold appearance. A moderate-sized diverticulum is present in segment 3 of the duodenum. The imaged proximal jejunum has a normal fold pattern and caliber. FLUOROSCOPY TIME: 4 minutes 11 seconds Number of Spot Images: 15 Number of Cine: 12 DOSE AREA PRODUCT: [id number] uGy-m2 (microgray-meter squared) FL/FL upper GI series IMPRESSION: 1. Small lateral pharyngeal pouch. 2. 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 Mild posterior indentation of the cervical esophagus due to a bridging anterior osteophyte at C6-C7. This is likely clinically insignificant. 4. Small a moderate-sized type I hiatal hernia with mild to moderate gastroesophageal reflux. 5. Limited evaluation of the gastric mucosa due to poor coating of the barium. 6. Moderate-sized diverticulum in segment 3 of the duodenum. TODAY'S VISIT [place] #Jorge Acuña She is accompanied by a female family member who is supportive She says she has been having 2 problems: 1. loose stools with fecal incontinence about 2 x a week, and 2. a cough worse at night with am hoarseness. She has not been taking the LInzess which is appropriate. She feels that the reglan is helping her, but I wonder if this is overdriving the bowels. I suggest that we decrease to tid from qid. I am fearful to eliminate the qhs dose r/t possible GERD cough, so we will eliminate the am dose. SHe also just stared Ozempic 2 mos ago, and this can worsen GERD and gastric emptying and/or cause diarrhea. HOwever, she feels the loose stools predate the Ozempic. She wonders why no one ever told her she had hiatal hernia. I explained that this was not seen on prior EGDs but this is not usually seen well on that particular study. It is likely we never knew, however surgery is not typically performed to fix this unless it is a severe situation since a Shar fundoplication is a very large surgery is only about 50% effective. I did diet counselor her to raise the head of her bed she says she has an electric bed at home. We discussed how aspiration could be causing her symptoms. Apparently, she also wonders whether there is mold in the [place] and whether this is something that is triggering her asthma. Obviously there can be many factors contributing to a cough and it is sometimes difficult to tease out the contributing factors. 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 This was never noted on prior endoscopy so I am uncertain of the clinical significance of this. She also has mild impingement of cervical osteophytes on the esophagus that likely is not a clinical contribution. She says she was having dysphagia at the time but this was accompanied by a sore throat that has since resolved and her swallowing has improved. She also takes dicyclomine 1 tab 3 times a day. I think we should do 1 tab 3 times a day and 2 at bedtime because this may also help with the diarrhea. I am also sending Proctosol cream for her solitary hemorrhoid that is bothersome to her. Return office visit in 6 weeks [facility] Medical History Chest pain Calcific tendinitis of left shoulder Weakness of left upper extremity Weakness of both lower extremities Joint pain in fingers of both hands Joint pain in both hands Bilateral knee pain Vitamin B12 deficiency Bilateral ankle pain Rash Right foot pain Medicare annual wellness visit, subsequent Cervical cancer screening Bronchopneumonia Chronic low back pain Bilateral foot pain Bilateral hip pain Annual physical exam Stool incontinence Hyperlipidemia LDL goal <70 Bilateral hip pain Fibromyalgia Chronic bronchitis Vitamin D deficiency Post-thoracotomy pain syndrome COPD (chronic obstructive pulmonary disease) Depression Anxiety Type 2 diabetes mellitus with diabetic polyneuropathy Pulmonary nodules Allergic rhinitis GERD (gastroesophageal reflux disease) Morbid obesity with BMI of 40.0-44.9, adult Asthma Obstructive sleep apnea Lumbar degenerative disc disease Carcinoid tumor Coronary artery disease Benign essential hypertension Type 2 diabetes mellitus with hyperglycemia, with long-term current use of insulin Surgical History History of colonoscopy (~12/2013) History of tubal ligation History of lung biopsy (~07/2016) History of esophagogastroduodenoscopy (EGD) (~10/2011) History of lobectomy of lung (~08/2016) History of rectal sphincterotomy (~11/2013) History of cardiac cath (~07/2018) Family History Father Stroke Hypertension Diabetes Mother Diabetes Hypertension Other Arthritis Lupus Social History Household Members: Spouse Housing: Apartment Alcohol intake: never Patient Tobacco Use Status: Former Tobacco user Tobacco use type: Cigarette e-Cigarette/Vaping Use: Never Used Second Hand Smoke Exposure: Yes service: No Current occupational status: disabled Cognitive needs: No Hearing needs: No Vision needs: Yes Review of Systems Const Denies fatigue, Denies fever(s), Denies night sweats, Denies poor appetite and Denies weight loss Eyes Details: glasses Reports requires corrective lenses ENT Reports Normal hearing present, Denies dental pain, Denies dysphagia, Denies hearing loss, Reports hoarseness, Denies mouth pain, Denies odynophagia, Denies throat swelling, Denies tongue swelling and Reports other (Dentition adequate) Card Reports no additional complaints Resp Reports cough GI Details: Denies abdominal pain, Denies melena, Denies bloating, Denies hematochezia, Denies constipation, Denies GI cramping, Denies dysphagia, Denies excessive flatus, Denies early satiety, Reports heartburn, Denies diarrhea, Reports loose stools, Denies nausea, Denies odynophagia, Denies vomiting and Denies hematemesis Skin/Breast Denies pruritus, Denies lesions, Denies rash and Denies jaundice Neuro Reports Normal hearing present and Denies Abnormal speech present Endo Denies fatigue Aller/Immun Denies throat swelling and Denies tongue swelling Physical Exam Vital Signs: Last Vital Signs Pulse 79 11/16/23 11:39 BP 109/67 11/16/23 11:39 BMI result Body Mass Index 43.2 Const General: cooperative, no acute distress, well developed and well groomed Nutritional Appearance: well nourished and obese Orientation/consciousness: oriented to person, oriented to place and oriented to time Limitations: language barrier and ambulation with cane HEENT Head: Yes normocephalic and Yes atraumatic Eyes General: appearance normal, both eyes and all related structures Pupils: Equal, round and reactive pupils present Neck Neck: Yes normal visual inspection and Yes no lymphadenopathy Thyroid: Thyroid normal Resp Effort & Inspection: normal respiratory effort and able to speak in complete sentences Auscultation: clear to auscultation bilaterally Cardio Rate: regular rate Rhythm: regular rhythm Heart sounds: Normal, physiologic split S2 sound present Peripheral pulses: radial pulses present and posterior tibial pulses present GI Inspection: No distended, Yes Abdominal panniculus present and Yes obesity Palpation (GI): Soft to palpation, nontender, no guarding, not rigid and No hepatosplenomegaly present Percussion: Yes normal to percussion Auscultation: normal bowel sounds Rectal Exam - Female: deferred Skin General skin exam: no rashes or lesions noted, turgor normal, skin not dry, no jaundice, No spider nevi and no striae Rashes: no rashes Nails: normal Neuro General: oriented to person, oriented to place and oriented to time Cranial nerves: Yes Equal, round and reactive pupils present and Yes Normal hearing present Speech: No Abnormal speech present Extrem General: Yes normal to inspection, No clubbing, No cyanosis and No edema Psych Appearance: grossly normal and well kempt Mental Status: mental status grossly normal Speech and movement: Normal speech and movement present Affect: normal affect Attitude: cooperative Thought process: Normal thought process present and not confabulating Thought content: Normal thought content present Insight: Limited insight present (Psych) Judgement: Limited judgement present (Psych) Assessment & Plan Assessment & Plan (1) GERD (gastroesophageal reflux disease): Code(s): K21.9 - Gastro-esophageal reflux disease without esophagitis Category: Medical Qualifiers: Esophagitis presence: without esophagitis Qualified Code(s): K21.9 - Gastro-esophageal reflux disease without esophagitis (2) Chronic idiopathic constipation: Code(s): K59.04 - Chronic idiopathic constipation Category: Medical Plan [place] #Jorge Live She is accompanied by a female family member who is supportive She says she has been having 2 problems: 1. loose stools with fecal incontinence about 2 x a week, and 2. a cough worse at night with am hoarseness. She has not been taking the LInzess which is appropriate. She feels that the reglan is helping her, but I wonder if this is overdriving the bowels. I suggest that we decrease to tid from qid. I am fearful to eliminate the qhs dose r/t possible GERD cough, so we will eliminate the am dose. SHe also just stared Ozempic 2 mos ago, and this can worsen GERD and gastric emptying and/or cause diarrhea. HOwever, she feels the loose stools predate the Ozempic. She wonders why no one ever told her she had hiatal hernia. I explained that this was not seen on prior EGDs but this is not usually seen well on that particular study. It is likely we never knew, however surgery is not typically performed to fix this unless it is a severe situation since a Shar fundoplication is a very large surgery is only about 50% effective. I did diet counselor her to raise the head of her bed she says she has an electric bed at home. We discussed how aspiration could be causing her symptoms. Apparently, she also wonders whether there is mold in the [place] and whether this is something that is triggering her asthma. Obviously there can be many factors contributing to a cough and it is sometimes difficult to tease out the contributing factors. 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 This was never noted on prior endoscopy so I am uncertain of the clinical significance of this. She also has mild impingement of cervical osteophytes on the esophagus that likely is not a clinical contribution. She says she was having dysphagia at the time but this was accompanied by a sore throat that has since resolved and her swallowing has improved. She also takes dicyclomine 1 tab 3 times a day. I think we should do 1 tab 3 times a day and 2 at bedtime because this may also help with the diarrhea. I am also sending Proctosol cream for her solitary hemorrhoid that is bothersome to her. Return office visit in 6 weeks Medications: New hydrocortisone 2.5% (Proctosol HC) BE SURE TO INCLUDE RECTAL APPICATOR!! 1 appl UT BID 30 grams 6RF hemorrhoids K64.9 - Unspecified hemorrhoids metoclopramide HCl (Reglan) 5 mg PO .tidachs 90 tabs 6RF K21.9 - Gastro- esophageal reflux disease without esophagitis dicyclomine 1 tab tid and 2 qhs orally; 150 tabs 6RF Refilled dexlansoprazole 60 mg PO DAILY 90 caps 1RF K59.04 - Chronic idiopathic constipation On Hold linaclotide (Linzess) Hold Comment: Doctor's Order 72 mcg PO QAM 30 caps 6RF K52.1 - Toxic gastroenteritis and colitis, K59.04 - Chronic idiopathic constipation Coding Level of Care Code Est Pt Level 4 (14393) Diagnoses Gastroesophageal reflux disease without esophagitis K21.9 Esophagitis presence: without esophagitis Chronic idiopathic constipation K59.04
== END 2023-11-16 12:38 | disposition home or self-care (01) ==
PROVIDERS: PCP Internal Medicine; Visit Provider Nurse Practitioner
DX: K21.9 Gastro-esophageal reflux disease without esophagitis (principal); K59.04 Chronic idiopathic constipation
CPT/HCPCS: 99214

== ENCOUNTER → 2023-11-16 11:35 | Outpatient (BNVA) | payer MEDICARE, MEDICAID, SELFPAY | PROVIDERS: PCP Internal Medicine; Visit Provider Nurse Practitioner | DX: K59.04 Chronic idiopathic constipation (principal); K21.9 Gastro-esophageal reflux disease without esophagitis | CPT/HCPCS: 99212 ==

== ENCOUNTER 2023-11-18 09:52 | Outpatient (REF) | payer MEDICARE, MEDICAID, SELFPAY ==
[2023-11-18 10:13] LABS: MANUAL DIFF FLAG NO
[2023-11-18 10:26] LABS: Basophils Absolute Auto 0.1 X10*3/uL (0.0-0.2); Basophils Percent Auto 0.7 % (0-2); Eosinophils Absolute Auto 0.5 X10*3/uL (0.0-0.4); Hematocrit 36.8 % (37.0-47.0); Hemoglobin 11.9 g/dl (12.0-16.0); Imm Gran Abs Auto 0.05 X10*3/uL (0.00-0.03); Imm Gran Pct Auto 0.6 % (0.0-0.4); Lymphocytes Absolute Auto 3.6 X10*3/uL (1.2-4.9); Lymphocytes Percent Auto 41.2 % (20-40); Mean Corpuscular HGB Conc 32.3 g/dl (31.0-35.0); Mean Corpuscular Hemoglobin 27.2 pg (27.0-33.0); Mean Corpuscular Volume 84.2 fL (80.0-98.0); Mean Platelet Volume 10.8 fL (9.4-12.3); Monocytes Absolute Auto 0.6 X10*3/uL (0.1-1.2); Monocytes Percent Auto 6.5 % (2-11); Neutrophils Absolute Auto 3.9 x10*3/uL (2.0-8.3); Platelet Count 363 X10*3/uL (160-400); Red Blood Count 4.37 X10*6/uL (4.20-5.50); Red Cell Distribution Width 14.2 % (11.0-16.0); White Blood Count 8.7 X10*3/uL (4.8-10.8)
[2023-11-18 10:35] LABS: Estimated Average Glucose 180 mg/dL; Hemoglobin A1c % 7.9 % (<6.0)
[2023-11-18 11:22] LABS: Alanine Aminotransferase 11 U/L (0-31); Albumin Level 3.8 g/dL (3.5-5.0); Alkaline Phosphatase 137 U/L (39-117); Anion Gap 14 (12-20); Aspartate Amino Transferase 23 U/L (5-31); Bilirubin Total 0.4 mg/dL (0.0-1.0); Blood Urea Nitrogen 8 mg/dL (9-16); Calcium 9.2 mg/dL (8.4-10.2); Carbon Dioxide 29 mmol/L (22-29); Chloride 103 mmol/L (96-108); Cholesterol 143 mg/dL (<200); Estimated Glomerular Filt Rate > 60; Glucose Fasting 143 mg/dL (60-99); HDL Cholesterol 38 mg/dL (>40); LDL Cholesterol Calculated 84 mg/dL (<100); Potassium 4.2 mmol/L (3.3-5.1); Sodium 142 mmol/L (135-145); Total Protein 7.1 g/dL (6.5-8.0); Triglycerides 105 mg/dL (<150)
[2023-11-18 11:25] LABS: TSH reflex Free T4 2.46 uIU/mL (0.32-4.0)
[2023-11-18 11:45] LABS: Folate 16.5 ng/mL (> or = 4.0); Vitamin B12 1684 pg/mL (200-900)
[2023-11-18 14:47] LABS: Appearance Urine Clear; Color Urine Dark Yellow; Glucose Urine UA Negative (Negative); Leukocyte Esterase Urine Small (1+) (Negative); Nitrite Urine Negative (Negative); UMIC TRIGGER UACC YES; Urine Blood Negative (Negative); Urine Ketones Trace mg/dL (Negative); Urine Protein Negative (Neg-Trace)
[2023-11-18 15:01] LABS: Bacteria Urine Trace (None Seen); Hyaline Casts Urine 0-2 /LPF (0-2); RBC Urine 0-2 /HPF (0-2); UACC Culture Trigger YES; WBC Urine 0-5 /HPF (0-5)
[2023-11-18 15:07] LABS: Creatinine Urine 196.26 mg/dL; Microalbum/Creatinine Ratio Ur 7.1 ug/mg cr (<30)
== END 2023-11-18 09:53 | disposition home or self-care (01) ==
LOC: HO.LAB 09:52
PROVIDERS: PCP Internal Medicine; Visit Provider Internal Medicine
DX: R30.0 Dysuria (principal); E78.00 Pure hypercholesterolemia, unspecified; E55.9 Vitamin D deficiency, unspecified; D64.9 Anemia, unspecified; E11.9 Type 2 diabetes mellitus without complications; E53.8 Deficiency of other specified B group vitamins
CPT/HCPCS: 36415; 80053; 80061; 81001; 82043; 82306; 82570; 82607; 82746; 83036; 84443; 85025; 87086

== ENCOUNTER 2023-11-19 08:57 | Outpatient (AMB) | payer MEDICARE, MEDICAID, SELFPAY ==
[2023-11-19 09:00] VITALS: BP 110/80; PULSE 81; O2SAT 96; BMI 42.9
--- NOTE | 2023-11-19 09:00 | AM.OFFVISMDC ---
Intake Vital Signs 11/19/23 09:00 Height 5 ft 1 in Weight 227 lb BMI 42.9 BP 110/80 Blood Pressure Location Lt brachial Position Sitting Pulse 81 Pulse Source Pulse Oximeter Pulse Oximetry (%) 96 Oxygen Delivery Method Room Air Intake Visit Reasons: GRACE [id number] Volunteer Patient Representative Required: No Accompanied by: Self / Same As Patient Allergies penicillin G Allergy (Severe, Verified 11/19/23 09:05) Itching latex Allergy (Intermediate, Verified 11/19/23 09:05) Itching nitrofurantoin Allergy (Intermediate, Verified 11/19/23 09:05) itching and redness (in the legs) Medication List - Last Reconciled 11/19/23 by Leroy Jauregui MD [ADULT BRIEFS (size XL) As directed] [ADULT PULL-UPS (size XL) As directed] albuterol sulfate 90 mcg/actuation 2 puffs inhalation QID PRN albuterol sulfate 2.5 mg (3 mL) inhalation Q4-6H PRN alcohol swabs 1 pad topical TID amitriptyline 25 mg PO BEDTIME aspirin 81 mg PO DAILY 90 days atorvastatin 40 mg PO DAILY azithromycin 500 mg PO 3XW 28 days benzonatate 200 mg PO BID PRN 30 days blood pressure monitor As directed blood sugar diagnostic (OneTouch Verio test strips) Three times a day blood sugar diagnostic (OneTouch Verio test strips) As directed tests 4X/day blood-glucose meter Three times a day blood-glucose meter (OneTouch Verio Flex Meter) As directed trsts 4 X/day cholecalciferol (vitamin D3) 50 mcg PO DAILY 90 days clotrimazole-betamethasone 1-0.05 % 1 appl topical BID PRN 7 days cyanocobalamin (vitamin B-12) 1,000 mcg PO DAILY 90 days dexlansoprazole 60 mg PO DAILY dextromethorphan-guaifenesin 5-100 mg/5 mL (Robitussin Cough-Chest Congestion DM) 10 mL PO Q4-8H PRN 14 days diclofenac sodium 1% (Arthritis Pain (diclofenac)) 2 grams topical QID PRN dicyclomine 1 tab tid and 2 qhs orally; [DISPOSABLE WIPES As directed] escitalopram oxalate 5 mg PO DAILY famotidine 40 mg PO BEDTIME 15 days flash glucose scanning reader ([employer] Mary Ann 2 [place]) As directed flash glucose sensor (FreeStyle Mary Ann 2 Sensor kit) As directed change every 14 days fluticasone propionate 220 mcg/actuation (Flovent HFA) 1 puff PO BID fluticasone propionate 50 mcg/actuation 2 sprays intranasal DAILY 30 days [FOUR-PRONGED CANE As directed] furosemide 20 mg PO DAILY glucose 12 grams (3 x 4 gram) PO Q15M hydrochlorothiazide 25 mg PO DAILY 90 days hydrocortisone 2.5% 1 appl topical BID PRN hydrocortisone 2.5% (Proctosol HC) 1 appl NE BID ibuprofen 800 mg PO TID PRN ipratropium-albuterol 0.5 mg-3 mg(2.5 mg base)/3 mL 3 mL inhalation QID PRN lancets (OneTouch Delica Lancets) Three times a day lancets (FreeStyle Lancets) As directed three time a day lancets (OneTouch Delica Plus Lancet) As directed-tests 4 X/day lancets (FreeStyle Lancets) As directed lidocaine 5% (Lidoderm) 1 patch topical DAILY 30 days [LIGHTWEIGHT WALKER WITH SEAT walker with seat] linaclotide (Linzess) 72 mcg PO QAM loratadine 10 mg PO DAILY PRN 90 days lorazepam 1 mg PO BID-TID PRN 30 days memantine 10 mg PO BID metformin 1 tablet in the morning and 2 tablets in evening PO; 30 days metoclopramide HCl (Reglan) 5 mg PO .tidachs metoprolol succinate ER 50 mg PO DAILY montelukast 10 mg PO BEDTIME nebulizers As directed nystatin 1 appl topical TID pen needle, diabetic (BD Ultra-Fine Cindy Pen Needle) twice daily pen needle, diabetic (Comfort EZ Pen [place]) As directed injects once a day prednisone 10 mg PO DAILY pregabalin 200 mg PO Q8H 30 days [ROLLATOR with SEAT As directed] semaglutide (Ozempic) 0.5 mg (0.736 mL) subcut QWEEK sertraline 50 mg PO DAILY Shower Chair As directed tiotropium-olodaterol 2.5-2.5 mcg/actuation (Stiolto Respimat) 2 puffs inhalation DAILY tizanidine 4 mg PO TID PRN tramadol 50 mg PO TID PRN 30 days umeclidinium-vilanterol 62.5-25 mcg/actuation (Anoro Ellipta) 1 inh inhalation DAILY valacyclovir 500 mg PO BID valsartan 320 mg PO DAILY Do you need a note to return to daycare/school/sports/work: No HPI GRACE [id number] HPI Details Patient comes in today for her Medicare Annual Wellness Exam AND follow up visit She continues to complain of increased pain diffusely with multiple joint pains - currently on Pregabalin 200 mg Q 8 hours, Tramadol and Tizanidine for pain and she continues to follow up with pain management and rheumatology for these issues She is also seeing endocrinology for management of her diabetes and she was taken off insulin and her Ozempic dose was increased when she was last seen in August 2023 - has a follow up appt with endocrine coming up in a couple of weeks on 11/29/23 She denies any headaches or dizziness Denies any chest pains but she reports (+) frequent chest tightness and occasional discomfort that radiates into her right arm - these do not appear to be related to activity or exertion She still has frequent ALVAREZ and follows up with pulmonary for her respiratory issues No nausea/vomiting, no abdominal pain No change in bowel habits noted She had her follow up labs done yesterday - to discuss her results She is up-to-date with her annual mammogram and gynecology exam/pap smear, both done in June 2023 She had her repeat colonoscopy done last year in January [address] Palacio and was advised to get a repeat colonoscopy in 1 year (later this year) She was seen by ophthalmology for her eye exam and podiatry for her foot exam last month (October 2023) She had a repeat CT scan of the chest done last month on 10/18/2023 at [facility] - scan showed what appears to be a growing or new right upper lobe pulmonary nodule measuring 6 mm in size (the largest nodule that she had there a year ago was only about 3 mm in size) She will therefore have a repeat CT scan in 3-6 months for follow up to ensure that this does not progress any further IPPE/AWV: c/o of Annual Wellness Visit, subsequent visit. Medical / Social History Reviewed Past Medical History Yes . [place] of Care / Care Team list updated Yes . Surgical/Hospitalization History Yes . Current Medications (including OTC and supplements) Yes . Family History Yes . Tobacco Control form Yes . AUDIT-C (Alcohol use) form Yes . Illicit drug use in Social History Yes . Current diagnosis of depression? No Appropriate PHQ2/PHQ9 completed Yes . Data entered by Electrophysiology Nurse Practitioner and reviewed by provider Home Safety Throw rugs? No Grab bars? No Raised toilet seats? No Working smoke detectors? Yes Working carbon monoxide detectors? Yes Data entered by Electrophysiology Nurse Practitioner and reviewed by provider Activities of Daily Living (ADLs) Difficulty bathing or showering? Yes Difficulty dressing? No Difficulty using the toilet? No Difficulty getting in and out of bed? No Difficulty walking? Yes Receives help from another person with any of the above tasks? Yes Instrumental Activities of Daily Living (IADLs) Uses the telephone without help Gets to places out of walking distance with help Goes shopping for groceries with help Prepares own meals without help Does own minor home maintenance with help Does own laundry with help Does own housework with help Manages own money without help Currently takes medications? Yes Takes medication without help End-of-Life Planning Discussed advance directive Yes Advance directive on file Discussed wishes expressed in advance directive agreed to following patient's wishes Fall Risk: Fall History Have you had any falls with injury in the past year? No . Have you had two or more falls in the past year? No . Fall Risk Assessment: No falls in the past year . HRA filled out by the patient, reviewed by Provider and scanned. [facility] Medical History (Updated 11/19/23 @ 10:47 by Leroy Jauregui MD) Osteoarthritis Chest pain Calcific tendinitis of left shoulder Weakness of left upper extremity Weakness of both lower extremities Joint pain in fingers of both hands Joint pain in both hands Bilateral knee pain Vitamin B12 deficiency Bilateral ankle pain Rash Right foot pain Medicare annual wellness visit, subsequent Cervical cancer screening Bronchopneumonia Chronic low back pain Bilateral foot pain Bilateral hip pain Annual physical exam Stool incontinence Hyperlipidemia LDL goal <70 Bilateral hip pain Fibromyalgia Chronic bronchitis Vitamin D deficiency Post-thoracotomy pain syndrome COPD (chronic obstructive pulmonary disease) Depression Anxiety Type 2 diabetes mellitus with diabetic polyneuropathy Pulmonary nodules Allergic rhinitis GERD (gastroesophageal reflux disease) Morbid obesity with BMI of 40.0-44.9, adult Asthma Obstructive sleep apnea Lumbar degenerative disc disease Carcinoid tumor Coronary artery disease Benign essential hypertension Type 2 diabetes mellitus with hyperglycemia, with long-term current use of insulin Surgical History History of colonoscopy (~12/2013) History of tubal ligation History of lung biopsy (~07/2016) History of esophagogastroduodenoscopy (EGD) (~10/2011) History of lobectomy of lung (~08/2016) History of rectal sphincterotomy (~11/2013) History of cardiac cath (~07/2018) Family History Father Stroke Hypertension Diabetes Mother Diabetes Hypertension Other Arthritis Lupus Social History Household Members: Spouse Housing: Apartment Alcohol intake: never Patient Tobacco Use Status: Former Tobacco user Tobacco use type: Cigarette e-Cigarette/Vaping Use: Never Used Second Hand Smoke Exposure: Yes service: No Current occupational status: disabled Cognitive needs: No Hearing needs: No Vision needs: Yes Questionnaire Medicare Wellness Checkup What [age] What gender do you identify with?: female During the past 4 weeks, how much have you been bothered by emotional problems such as feeling anxious, depressed, irritable, sad or downhearted, and blue?: moderately During the past 4 weeks, has your physical & emotional health limited your social activities with family, friends, neighbors, or groups?: quite a bit During the past 4 weeks, how much bodily pain have you generally had?: severe pain During the past 4 weeks, was someone available to help you if you needed & wanted help?: yes, some During the past 4 weeks, what was the hardest physical activity you could do for at least 2 minutes?: very light Can you get to places out of walking distance without help? (For eg., can you travel alone on buses, taxis or drive your car?): Yes Can you go shopping for groceries or clothes without someone's help?: No Can you prepare your own meals?: No Can you do your housework without help?: No Because of any health problems, do you need the help of another person with your personal care needs such as eating, bathing, dressing or getting around the house?: Yes Can you handle your own money without help?: Yes During the past 4 weeks, how would you rate your health in general?: poor During the past 4 weeks how have things been going for you?: pretty well Are you having difficulties driving your car?: yes, often Do you always fasten your seat belt when you are in a car?: yes, sometimes During past 4 weeks, have you been bothered by the following: never: Sexual problems? and Trouble eating well?, sometimes: Falling or dizzy when standing up, Teeth or denture problems? and Problems using the telephone? and often: Tiredness or fatigue? Have you fallen 2 or more times in the past year?: Yes Are you afraid of falling?: Yes Are you a smoker?: no During the past 4 weeks, how many drinks of wine, beer, or other alcoholic beverages did you have?: no alcohol at all Do you exercise for about 20 minutes 3 or more times a week?: no, I usually do not exercise this much Have you been given information to help with the following?: yes: Keeping track of your medications? and no: Hazards in your house that might hurt you? How often do you have trouble taking medicines the way you have been told to take them?: I do not have to take medicine How confident are you that you can control & manage most of your health problems?: not very confident What is your race?: or origin or descent Mini Mental State Exam (MMSE) Orientation What is the (year) (season) (date) (day) (month)?: year, season, date, day and month Where are we (state) (county) (town or city) (hospital) (floor)?: state, county, town or city, hospital/clinic and floor Score Score: 10 Activity of Daily Living Bathing - sponge bath, tub bath or shower: receives help in bathing only one body part (such as back or leg) Dressing - getting clothes from closets & drawers, including inner/outer garments & fasteners.: gets clothes & gets completely dressed without help Toileting - going to the 'toilet room' for urine/bowel elimination & cleaning self/arranging clothes: goes to toilet room, cleans self, arranges clothes without help Transfer: moves in & out of bed or chair with help Continence: has occasional 'accidents' Feeding: feeds self without help Total Score: 0 Information obtained from: patient Using telephone: independent Traveling: needs assistance Shopping: needs assistance Preparing meals: needs assistance Housework: needs assistance Taking medicine: independent Managing money: independent PHQ-9 Over the last 2 weeks, how often have you been bothered by any of the following problems? 1. Little interest or pleasure in doing things: nearly every day 2. Feeling down, depressed, or hopeless: several days 3. Trouble falling or staying asleep, or sleeping too much: nearly every day 4. Feeling tired or having little energy: several days 5. Poor appetite or overeating: several days 6. Feeling bad about yourself - or that you are a failure or have let yourself or your family down: several days 7. Trouble concentrating on things, such as reading the newspaper or watching television: several days 8. Moving or speaking so slowly that other people could have noticed. Or the opposite - being so fidgety or restless that you have been moving around a lot more than usual: several days 9. Thoughts that you would be better off or of hurting yourself in some way: not at all Total score: 12 Depression Screening Interpretation: Positive Depression Screening Follow-up: Existing condition and In treatment Depression Screening Done: Yes 23341 - PHQ-9 Billing: Yes Source: Developed by Drs. Jeffrey Chavez, Marj Villatoro, Vaibhav Pagan and colleagues, with an educational norm from [employer]. PHQ-2/PHQ-9 PHQ-2 Over the last 2 weeks, how often have you been bothered by any of the following problems? 1. Little interest or pleasure in doing things: nearly every day 2. Feeling down, depressed, or hopeless: several days Total score: 4 If score is 3 or greater, continue 3. Trouble falling or staying asleep, or sleeping too much: nearly every day 4. Feeling tired or having little energy: several days 5. Poor appetite or overeating: several days 6. Feeling bad about yourself - or that you are a failure or have let yourself or your family down: several days 7. Trouble concentrating on things, such as reading the newspaper or watching television: several days 8. Moving or speaking so slowly that other people could have noticed. Or the opposite - being so fidgety or restless that you have been moving around a lot more than usual: several days 9. Thoughts that you would be better off or of hurting yourself in some way: not at all Total score: 12 10. If you checked off any problems, how difficult have those problems made it for you to do your work, take care of things at home, or get along with other people?: somewhat difficult 0-4 None-Minimal, 5-9 Mild, 10-14 Moderate, 15-19 Moderately Severe, 20-27 Severe Source: Developed by Drs. Jeffrey Chavez, Marj Villatoro, Vaibhav Pagan and colleagues, with an educational norm from [employer]. Thrive Questionnaire Date Thrive assessed: 11/19/23 I am a: Patient What is your living situation today?: I have a steady place to live Within the past 12 months, did the food you bought not last and you didn't have the money to get more?: Never true Within the past 12 months, did you worry whether your food would run out before you got money to buy more?: Never true Do you have trouble paying for medicines?: No Do you have trouble getting transportation to medical appointments?: No Do you have trouble paying your heating and electricity bill?: No Do you have trouble taking care of your child, family member or friend?: No Do you have trouble with day-to-day activities such as bathing, preparing meals, shopping, managing finances, etc.?: No Are you currently unemployed and looking for a job?: No Are you interested in more education?: No Please select the resources that you would like help with: None Currently or been in a relationship where the following occur: No concerns reported THRIVE Score: 0 EVELINE-7 AMB Questionnaire EVELINE-7 Date EVELINE - 7 assessed: 11/19/23 Feeling nervous, anxious, or on edge: 0 = Not at all Not being able to stop or control worryin = Not at all Worrying too much about different things: 0 = Not at all Trouble relaxin = Not at all Being so restless that it is hard to sit still: 0 = Not at all Becoming easily annoyed or irritable: 0 = Not at all Feeling afraid as if something awful might happen: 0 = Not at all Total EVELINE-7 score (0-4 normal; 5-9 mild; 10-14 moderate; 15-21 severe): 0 Source: Developed by Drs. Jeffrey Chavez, Marj Villatoro, Vaibhav Pagan and colleagues, with an educational norm from [employer]. Review of Systems Const Denies chills, Reports difficulty sleeping, Reports fatigue, Denies fever(s) and Denies headache(s) ENT Denies dysphagia, Denies dizziness, Denies otalgia, Denies headache(s), Denies nasal congestion, Reports neck pain, Denies odynophagia and Denies sore throat Card Denies chest pain, Denies palpitations and Reports dyspnea on exertion (mild) Resp Denies cough, Reports dyspnea on exertion (mild) and Denies wheezing GI Denies abdominal pain, Denies constipation, Denies dysphagia, Denies heartburn, Reports fecal incontinence, Denies diarrhea, Denies nausea, Denies odynophagia and Denies vomiting Denies difficulty voiding, Denies nocturia, Denies dysuria, Reports urinary incontinence (at times) and Denies urinary urgency Musc Reports back pain (especially over the right lower back), Reports arthralgias (over the left shoulder - increased lately; also over left hip and left knee), Reports neck pain and Reports numbness (in both feet, on and off) Skin/Breast Denies rash Neuro Denies dizziness, Denies headache(s), Reports numbness (in both feet, on and off) and Reports paresthesias (in both feet) Endo Reports fatigue and Denies palpitations Aller/Immun Denies wheezing Physical Exam Vital Signs: Last Vital Signs Pulse 81 11/19/23 09:00 BP 110/80 11/19/23 09:00 Pulse Ox 96 11/19/23 09:00 Oxygen Delivery Method Room Air 11/19/23 09:00 BMI result Body Mass Index 42.9 IPPE/AWV: Balance [place]berg No . Tandem walk No . Walk and Turn No . Rise from sit to stand No . Vision Corrective lens No Vision screen pass Hearing Whisper test pass . Urinary incont. no. EKG Not clinically necessary. Const General: no acute distress and alert HEENT Ears: TM's normal bilaterally and EAC's normal Throat: Yes posterior oropharynx normal and Yes tonsils normal (no TP congestion noted) Neck Neck: Yes no lymphadenopathy and Yes supple Thyroid: Thyroid normal Resp Auscultation: no rales, rhonchi ((+) scattered rhonchi) throughout and no wheezes Cardio Rate: regular rate Rhythm: regular rhythm Heart sounds: no murmurs GI Palpation (GI): Soft to palpation and nontender Auscultation: normal bowel sounds Back/Spine/Pelvis Thoracic/Lumbar Spine: lumbar spinal tenderness Skin Rashes: no rashes Extrem General: Yes no clubbing, cyanosis or edema Left upper extremity: wrist (increased tenderness - currently has a wrist splint/brace on) Right lower extremity: knee Details: tenderness Left lower extremity: knee Details: tenderness Results Reviewed Results Reviewed: Laboratory Tests 11/18/23 11/18/23 10:09 14:00 WBC 8.7 Hgb 11.9 L Hct 36.8 L Plt Count 363 Sodium 142 Potassium 4.2 Creatinine 0.69 Estimated GFR > 60 Fasting Glucose 143 H Hemoglobin A1c % 7.9 H Calcium 9.2 AST 23 ALT 11 Triglycerides 105 Cholesterol 143 LDL Cholesterol, Calc 84 HDL Cholesterol 38 L Vitamin B12 1684 H 25-OH Vitamin D Total 53.0 TSH 2.46 Ur Specific [place] 1.020 Urine Protein Negative Urine Glucose (UA) Negative Urine Blood Negative Urine Nitrite Negative Ur Leukocyte Esterase Small (1+) H Microalb/Creat Ratio 7.1 Assessment & Plan Assessment & Plan (1) Medicare annual wellness visit, subsequent: Code(s): Z00.00 - Encounter for general adult medical examination without abnormal findings Plan: HRA form discussed and reviewed with patient - form will be scanned into patient's chart PARAS and Care Team list updated She is up-to-date with her annual mammogram and gynecology exam/pap smear, both done in June 2023 She had her repeat colonoscopy done last year in January [address] Palacio and was advised to get a repeat colonoscopy in 1 year (later this year) (2) Type 2 diabetes mellitus with diabetic polyneuropathy: Code(s): E11.42 - Type 2 diabetes mellitus with diabetic polyneuropathy Qualifiers: Diabetes mellitus tank terminal gauger insulin use: with tank terminal gauger use Qualified Code(s): E11.42 - Type 2 diabetes mellitus with diabetic polyneuropathy; Z79.4 - residential (current) use of insulin Plan: Her HgbA1c was most recently at 7.9% on her labs done yesterday (was at 7.3% a few months ago) - goal is <7.0% Reinforced diabetic diet Continue Metformin 500 mg BID and Ozempic 0.5 mg SQ once a week (dose was increased by endocrinology at her last visit with them a few months ago) She was also on Lantus and this was discontinued by endocrinology back then Patient was also on Repaglinide 0.5 mg 1 tablet before breakfast and 2 tablets before dinner in the past but she has not taken this in a while now Follow up with endocrinology as scheduled (3) Coronary artery disease: Code(s): I25.10 - Atherosclerotic heart disease of [place] coronary artery without angina pectoris Qualifiers: Coronary Disease-Associated Artery/Lesion type: [place] artery [place] vs. transplanted heart: [place] heart Associated angina: without angina Qualified Code(s): I25.10 - Atherosclerotic heart disease of [place] coronary artery without angina pectoris Plan: S/P cardiac cath on 07/2018, which revealed (+) very mild disease reportedly seen on procedure Continue aggressive risk factor reduction and low dose Aspirin 81 mg QD Echocardiogram done with cardiology in November 2022 revealed normal LV systolic function with EF between 65 to 70%, normal diastolic function, normal left atrial size, normal RV systolic function, no evidence of aortic stenosis but (+) mild to moderate MR is present Follow up with cardiology as scheduled (4) Pure hypercholesterolemia: Code(s): E78.00 - Pure hypercholesterolemia, unspecified Plan: Results of her labs done yesterday reviewed and discussed with patient Reinforced low cholesterol diet Continue Atorvastatin 40 mg QD Will recheck her labs and fasting lipids in 4 months for follow up (5) Benign essential hypertension: Code(s): I10 - Essential (primary) hypertension Plan: Reinforced low sodium diet - goal is systolic BP of 120 mm or less Continue Valsartan 320 mg QD, Metoprolol ER 50 mg QD and HCTZ 25 mg QD (6) Carcinoid tumor: Comment: (S/P RUL lobectomy at [facility] [place] - 08/2016) Code(s): D3A.00 - Benign carcinoid tumor of unspecified site Qualifiers: Carcinoid tumor malignancy status: malignant Carcinoid tumor location: lung Qualified Code(s): 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 Waggoner on 09/02/[address] done in September 2020, August 2021 and most recently in October 2022 showed stable findings with (+) pulmonary nodules that appear benign Her most recent CT scan of the chest done last month on 10/18/2023 at [facility] - scan showed what appears to be a growing or new right upper lobe pulmonary nodule measuring 6 mm in size (the largest nodule that she had there a year ago was only about 3 mm in size) She will therefore have a repeat CT scan in 3-6 months for follow up to ensure that this does not progress any further Follow up with pulmonary and Dr. Waggoner and oncology as scheduled for continuing surveillance (7) Asthma: Code(s): J45.909 - Unspecified asthma, uncomplicated Qualifiers: Asthma severity: moderate Asthma persistence: persistent Asthma complication type: with acute exacerbation Qualified Code(s): J45.41 - Moderate persistent asthma with (acute) exacerbation Plan: Continue Flovent HFA 220 mcg 1 inhalation BID, Stiolto Respimat 2.5-2.5 mcg 2 inhalations QD, Albuterol HFA 2 inhalations Q 6 hours PRN and updraft treatments with Ipratropium-Albuterol 0.5-3 mg/3 ml QID PRN Continue Montelukast 10 mg QD and Loratadine 10 mg QD PRN Continue Azithromycin MWF for prophylactic Tx - started by pulmonary at her last visit recently Follow up with pulmonary as scheduled (8) Obstructive sleep apnea: Comment: no evidence of ILDEFONSO on recent inlab PSG Code(s): G47.33 - Obstructive sleep apnea (adult) (pediatric) Plan: States that she has not been using her CPAP device lately and is scheduled for a repeat sleep study for further evaluation soon Follow up with Sleep Medicine as scheduled (9) GERD (gastroesophageal reflux disease): Code(s): K21.9 - Gastro-esophageal reflux disease without esophagitis Qualifiers: Esophagitis presence: without esophagitis Qualified Code(s): K21.9 - Gastro-esophageal reflux disease without esophagitis Plan: Dietary restrictions reinforced Continue Dexlansoprazole 60 mg QD Follow up with GI as scheduled (10) Vitamin B12 deficiency: Code(s): E53.8 - Deficiency of other specified B group vitamins Plan: She is advised that her B12 level is now overcorrected (>1500) and she should cut back on her B12 tablets from QD to BIW dosing Will recheck her B12 level in 4 months for follow up (11) Vitamin D deficiency: Code(s): E55.9 - Vitamin D deficiency, unspecified Plan: Continue Vitamin D3 2000 units QD (12) Lumbar degenerative disc disease: Code(s): M51.36 - Other intervertebral disc degeneration, lumbar region Plan: Reinforced activity and weight-lifting restrictions Continue Tizanidine 4 mg TID PRN and Tramadol 50 mg TID PRN for pain (13) Osteoarthritis: Code(s): M19.90 - Unspecified osteoarthritis, unspecified site Qualifiers: Osteoarthritis location: unspecified site Osteoarthritis type: primary Qualified Code(s): M19.91 - Primary osteoarthritis, unspecified site Plan: Continue Tramadol 50 mg TID PRN for pain Follow up with rheumatology and pain management as scheduled (14) Fibromyalgia: Code(s): M79.7 - Fibromyalgia Plan: Continue Pregabalin 200 mg Q 8 hours and Tizanidine 4 mg TID PRN (15) Anxiety: Code(s): F41.9 - Anxiety disorder, unspecified Plan: Continue Lorazepam 1 mg BID-TID PRN (16) Depression: Code(s): F32.9 - Major depressive disorder, single episode, unspecified Qualifiers: Depression Type: major depressive disorder Major depression recurrence: recurrent Active/Remission status: currently active Major depression episode severity: unspecified Qualified Code(s): F33.9 - Major depressive disorder, recurrent, unspecified Plan: Continue Sertraline 50 mg QD (17) Morbid obesity with BMI of 40.0-44.9, adult: Code(s): E66.01 - Morbid (severe) obesity due to excess calories; Z68.41 - Body mass index [BMI] 40.0-44.9, adult Plan: Reinforced diet; exercise and weight loss are unrealistic given patient's multiple comorbidities and physical issues Plan Follow up in 4 months Orders: Orders Comprehensive [place]. Panel Fast 4 Months E78.00 - Pure hypercholesterolemia, unspecified Hemoglobin A1c 4 Months E11.9 - Type 2 diabetes mellitus without complications TSH reflex Free T4 4 Months E78.00 - Pure hypercholesterolemia, unspecified UA CC w/rflx Micro + Cult 4 Months R30.0 - Dysuria Microalbumin, Random (w Creat) 4 Months E11.9 - Type 2 diabetes mellitus without complications Vitamin D 25-OH Total 4 Months E55.9 - Vitamin D deficiency, unspecified Vitamin B12 and Folate 4 Months E53.8 - Deficiency of other specified B group vitamins Complete Blood Count Auto Diff 4 Months D64.9 - Anemia, unspecified Lipid Panel 4 Months E78.00 - Pure hypercholesterolemia, unspecified Medications: Changed From dextromethorphan-guaifenesin 5-100 mg/5 mL (Robitussin Cough-Chest Congestion DM) 10 mL PO Q4-8H 14 days PRN 500 mL 3RF cough To dextromethorphan-guaifenesin 5-100 mg/5 mL (Robitussin Cough-Chest Congestion DM) 10 mL PO Q6-8H 15 days PRN 600 mL 3RF cough Refilled [DISPOSABLE WIPES] As directed 100 ea 12RF R15.9 - Full incontinence of feces [ADULT PULL-UPS (size XL)] As directed 100 ea 12RF R15.9 - Full incontinence of feces Discontinued amitriptyline Discontinued Reason: Patient no longer taking 25 mg PO BEDTIME 90 tabs 1RF Quality Reporting (2019) Depression/Bipolar (159/160/161/177) PHQ-9: Total score: 12 Coding Level of Care Code Medicare Subsequent (G0439) Est Pt Level 4 (21276) Diagnoses Medicare annual wellness visit, subsequent Z00.00 Type 2 diabetes mellitus with diabetic polyneuropathy, with long-term current use of insulin E11.42; Z79.4 Diabetes mellitus tank terminal gauger insulin use: with fdc use Coronary artery disease involving [place] coronary artery of [place] heart without angina pectoris I25.10 Coronary Disease-Associated Artery/Lesion type: [place] artery [place] vs. 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 Carcinoid tumor location: lung Moderate persistent asthma with acute exacerbation J45.41 Asthma severity: moderate Asthma persistence: persistent Asthma complication type: with acute exacerbation Obstructive sleep apnea G47.33 Gastroesophageal reflux disease without esophagitis K21.9 Esophagitis presence: without esophagitis Vitamin B12 deficiency E53.8 Vitamin D deficiency E55.9 Lumbar degenerative disc disease M51.36 Primary osteoarthritis, unspecified site M19.91 Osteoarthritis location: unspecified site Osteoarthritis type: primary Fibromyalgia M79.7 Anxiety F41.9 Episode of recurrent major depressive disorder, unspecified depression episode severity F33.9 Depression Type: major depressive disorder Major depression recurrence: recurrent Active/Remission status: currently active Major depression episode severity: unspecified Morbid obesity with BMI of 40.0-44.9, adult E66.01; Z68.41
== END 2023-11-19 09:58 | disposition home or self-care (01) ==
PROVIDERS: PCP Internal Medicine; Visit Provider Internal Medicine
DX: Z00.00 Encounter for general adult medical examination without abnormal findings (principal); E11.42 Type 2 diabetes mellitus with diabetic polyneuropathy; Z79.4 Long term (current) use of insulin; C7A.090 Malignant carcinoid tumor of the bronchus and lung; F33.9 Major depressive disorder, recurrent, unspecified; E66.01 Morbid (severe) obesity due to excess calories; Z68.41 Body mass index [BMI] 40.0-44.9, adult; I25.10 Atherosclerotic heart disease of native coronary artery without angina pectoris; E78.00 Pure hypercholesterolemia, unspecified; I10 Essential (primary) hypertension; J45.41 Moderate persistent asthma with (acute) exacerbation; G47.33 Obstructive sleep apnea (adult) (pediatric)
CPT/HCPCS: 99214; G0439

== ENCOUNTER 2023-11-26 10:01 | Outpatient (AMB) | payer MEDICARE, MEDICAID, SELFPAY ==
[2023-11-26 10:08] VITALS: BP 110/64; PULSE 80; BMI 43.4
--- NOTE | 2023-11-26 10:08 | A.OFFVIS_ITS ---
Vital Signs 11/26/23 10:08 Height 5 ft 1 in Weight 229 lb 15.074 oz BMI 43.4 BP 110/64 Blood Pressure Location Lt brachial Position Sitting Pulse 80 Pulse Source Pulse Oximeter Intake Visit Reasons: DM Intake Note: Patient presents today for D2MT follow up visit. Last Diabetic Eye exam: August 2023 Last Podiatry Visit: Doesn't have one Random Glucose: 162 mg/dl HgA1c: 7.9% 11/18/23 Orthopaedic Technologist Required: Yes Orthopaedic Technologist Language: [place] [employer] Services: Orthopaedic Technologist Present Orthopaedic Technologist Name: Estella [id number] Information Interpreted: non-clinical & clinical Accompanied by: REAL ESTATE SALES AGENT Allergies penicillin G Allergy (Severe, Verified 11/26/23 10:15) Itching latex Allergy (Intermediate, Verified 11/26/23 10:15) Itching nitrofurantoin Allergy (Intermediate, Verified 11/26/23 10:15) itching and redness (in the legs) Medication List - Last Reconciled 11/26/23 by Miriam Nix PA-C [ADULT BRIEFS (size XL) As directed] [ADULT PULL-UPS (size XL) As directed] albuterol sulfate 90 mcg/actuation 2 puffs inhalation QID PRN albuterol sulfate 2.5 mg (3 mL) inhalation Q4-6H PRN alcohol swabs 1 pad topical TID aspirin 81 mg PO DAILY 90 days atorvastatin 40 mg PO DAILY blood pressure monitor As directed blood sugar diagnostic (OneTouch Verio test strips) Three times a day blood sugar diagnostic (OneTouch Verio test strips) As directed tests 4X/day blood-glucose meter Three times a day blood-glucose meter (OneTouch Verio Flex Meter) As directed trsts 4 X/day cholecalciferol (vitamin D3) 50 mcg PO DAILY 90 days clotrimazole-betamethasone 1-0.05 % 1 appl topical BID PRN 7 days cyanocobalamin (vitamin B-12) 1,000 mcg PO DAILY 90 days dexlansoprazole 60 mg PO DAILY dextromethorphan-guaifenesin 5-100 mg/5 mL (Robitussin Cough-Chest Congestion DM) 10 mL PO Q6-8H PRN 15 days diclofenac sodium 1% (Arthritis Pain (diclofenac)) 2 grams topical QID PRN dicyclomine 1 tab tid and 2 qhs orally; [DISPOSABLE WIPES As directed] [DISPOSABLE WIPES As directed] famotidine 40 mg PO BEDTIME 15 days flash glucose scanning reader ([employer] GroupStyle Mary Ann 2 [place]) As directed flash glucose sensor (FreeStyle Mary Ann 2 Sensor kit) As directed change every 14 days fluticasone propionate 220 mcg/actuation (Flovent HFA) 1 puff PO BID fluticasone propionate 50 mcg/actuation 2 sprays intranasal DAILY 30 days [FOUR-PRONGED CANE As directed] furosemide 20 mg PO DAILY glucose 12 grams (3 x 4 gram) PO Q15M hydrochlorothiazide 25 mg PO DAILY 90 days hydrocortisone 2.5% 1 appl topical BID PRN hydrocortisone 2.5% (Proctosol HC) 1 appl TX BID ibuprofen 800 mg PO TID PRN ipratropium-albuterol 0.5 mg-3 mg(2.5 mg base)/3 mL 3 mL inhalation QID PRN lancets (OneTouch Delica Lancets) Three times a day lancets (FreeStyle Lancets) As directed three time a day lancets (OneTouch Delica Plus Lancet) As directed-tests 4 X/day lancets (FreeStyle Lancets) As directed lidocaine 5% (Lidoderm) 1 patch topical DAILY 30 days [LIGHTWEIGHT WALKER WITH SEAT walker with seat] linaclotide (Linzess) 72 mcg PO QAM loratadine 10 mg PO DAILY PRN 90 days lorazepam 1 mg PO BID-TID PRN 30 days metformin 500 mg PO DAILY metoclopramide HCl (Reglan) 5 mg PO .tidachs metoprolol succinate ER 50 mg PO DAILY montelukast 10 mg PO BEDTIME nebulizers As directed nystatin 1 appl topical TID pen needle, diabetic (BD Ultra-Fine Cindy Pen Needle) twice daily pen needle, diabetic (Comfort EZ Pen [place]) As directed injects once a day prednisone 10 mg PO DAILY pregabalin 200 mg PO Q8H 30 days [ROLLATOR with SEAT As directed] semaglutide (Ozempic) 1 mg (0.75 mL) subcut QWEEK sertraline 50 mg PO DAILY Shower Chair As directed tiotropium-olodaterol 2.5-2.5 mcg/actuation (Stiolto Respimat) 2 puffs inhalati on DAILY tizanidine 4 mg PO TID PRN tramadol 50 mg PO TID PRN 30 days umeclidinium-vilanterol 62.5-25 mcg/actuation (Anoro Ellipta) 1 inh inhalation DAILY valacyclovir 500 mg PO BID valsartan 320 mg PO DAILY HPI HPI DM: Details: Patient is 68 yo female with DM type 2 diagnosed around 2014, who presents for management her diabetes. Past medical history:DM2, HTN, HLD, COPD, ILDEFONSO, gastro paresis. Orthopaedic Technologist: Estella #[id number] Endo: The A1c is 7.9. She is currently on Ozempic 0.5 mg weekly, metformin 500 mg b.i.d.. She was on Levemir in the past but stopped this because she felt like she was getting hypoglycemic. -Micro and macrovascular complications: neuropathy -Continuous glucose monitoring: Mary Ann download shows she is using the sensor 90 % of the time. Average glucose is 156 with G mi of 7.0% and variability 26.9%. 79% range with 21% hyperglycemia and no hypoglycemia She states sometimes it feels nauseous when it drops to 70. She states this happens at night and sometimes despite eating snacks. She is frustrated with her weight but realizes eating cookies and having coffee at night are not helpful. -Eye exam: appt May 2023 -Follows with Podiatry CV: Blood pressure today in the office is 110/64. She is currently on hydrochlorothiazide, metoprolol, and valsartan. Her cholesterol is controlled with atorvastatin 40 mg. Her last LDL was 80 PFSH Medical History (Updated 11/19/23 @ 10:47 by Leroy Jauregui MD) Osteoarthritis Chest pain Calcific tendinitis of left shoulder Weakness of left upper extremity Weakness of both lower extremities Joint pain in fingers of both hands Joint pain in both hands Bilateral knee pain Vitamin B12 deficiency Bilateral ankle pain Rash Right foot pain Medicare annual wellness visit, subsequent Cervical cancer screening Bronchopneumonia Chronic low back pain Bilateral foot pain Bilateral hip pain Annual physical exam Stool incontinence Hyperlipidemia LDL goal <70 Bilateral hip pain Fibromyalgia Chronic bronchitis Vitamin D deficiency Post-thoracotomy pain syndrome COPD (chronic obstructive pulmonary disease) Depression Anxiety Type 2 diabetes mellitus with diabetic polyneuropathy Pulmonary nodules Allergic rhinitis GERD (gastroesophageal reflux disease) Morbid obesity with BMI of 40.0-44.9, adult Asthma Obstructive sleep apnea Lumbar degenerative disc disease Carcinoid tumor Coronary artery disease Benign essential hypertension Type 2 diabetes mellitus with hyperglycemia, with long-term current use of insulin Surgical History History of colonoscopy (~12/2013) History of tubal ligation History of lung biopsy (~07/2016) History of esophagogastroduodenoscopy (EGD) (~10/2011) History of lobectomy of lung (~08/2016) History of rectal sphincterotomy (~11/2013) History of cardiac cath (~07/2018) Family History Father Stroke Hypertension Diabetes Mother Diabetes Hypertension Other Arthritis Lupus Social History Household Members: Spouse Housing: Apartment Alcohol intake: never Patient Tobacco Use Status: Former Tobacco user Tobacco use type: Cigarette e-Cigarette/Vaping Use: Never Used Second Hand Smoke Exposure: Yes service: No Current occupational status: disabled Cognitive needs: No Hearing needs: No Vision needs: Yes Physical Exam Vital Signs: Last Vital Signs Pulse 80 11/26/23 10:08 BP 110/64 11/26/23 10:08 BMI result Body Mass Index 43.4 Const Orientation/consciousness: patient oriented x3 Neck Neck: Yes no lymphadenopathy Thyroid: Thyroid normal Carotids: no bruits Resp Auscultation: clear to auscultation bilaterally Cardio Rate: regular rate Rhythm: regular rhythm Heart sounds: S1 normal heart sound present and S2 normal heart sound present Peripheral pulses: dorsalis pedis present Neuro General: patient oriented x3, gait normal and no focal motor deficits Extrem Other: Skin intact. General: Yes normal to inspection Results Reviewed Results Reviewed: Laboratory Last Values Glucose (Clinic) 162 mg/dL (60-115) H 11/26/23 10:19 Laboratory Tests 11/18/23 11/18/23 10:09 14:00 Sodium 142 Potassium 4.2 Chloride 103 Carbon Dioxide 29 Anion Gap 14 BUN 8 L Creatinine 0.69 Estimated GFR > 60 Fasting Glucose 143 H Estimat Average Glucose 180 Hemoglobin A1c % 7.9 H Calcium 9.2 Total Bilirubin 0.4 AST 23 ALT 11 Triglycerides 105 Cholesterol 143 LDL Cholesterol, Calc 84 HDL Cholesterol 38 L Urine Creatinine 196.26 Urine Microalbumin 14.0 Microalb/Creat Ratio 7.1 Assessment & Plan Assessment & Plan (1) Type 2 diabetes mellitus with diabetic polyneuropathy: Code(s): E11.42 - Type 2 diabetes mellitus with diabetic polyneuropathy Category: Medical Qualifiers: Diabetes mellitus parts counterman insulin use: with custodial use Qualified Code(s): E11.42 - Type 2 diabetes mellitus with diabetic polyneuropathy; Z79.4 - half-way (current) use of insulin Plan: We will stop the evening dose of the metformin as she is very concerned about the lower blood sugars at night however, no blood sugars were recorded as hypoglycemic. We discussed the importance of diet and reducing her sugar/processed food intake. I have encouraged her to increase complex carbs, protein and vegetables. We will increase the Ozempic dosage. I will have her follow up in 3 months. Sooner if needed. Labs prior to appointment. I spent 45 minutes in [id number] time today explaining the pathophysiology of diabetes, the medications, complications associated with diabetes. We discussed the risk of heart disease, stroke, kidney damage, increased risk of amputations, infections etc.. Patient tells me that she is going to be more compliant with her diet. (2) Benign essential hypertension: Code(s): I10 - Essential (primary) hypertension Category: Medical Plan: bp wnl continue current treatment plan (3) Pure hypercholesterolemia: Code(s): E78.00 - Pure hypercholesterolemia, unspecified Category: Medical Plan: continue current plan Medications: New semaglutide (Ozempic) 1 mg (0.75 mL) subcut QWEEK 3 mL 5RF Miriam Nix PA-C Changed From metformin 1 tablet in the morning and 2 tablets in evening PO; 30 days 90 tabs 5RF E11.42 - Type 2 diabetes mellitus with diabetic polyneuropathy To metformin 500 mg PO DAILY E11.42 - Type 2 diabetes mellitus with diabetic polyneuropathy Leroy Jauregui MD Coding Level of Care Code Est Pt Level 5 (42454) Complex EM visit Add On G2211 Diagnoses Type 2 diabetes mellitus with diabetic polyneuropathy, with long-term current use of insulin E11.42; Z79.4 Diabetes mellitus parts counterman insulin use: with custodial use Benign essential hypertension I10 Pure hypercholesterolemia E78.00
[2023-11-26 10:24] LABS: Glucose, Whole Blood 162 mg/dL (60-115)
== END 2023-11-26 11:02 | disposition home or self-care (01) ==
PROVIDERS: PCP Internal Medicine; Visit Provider Physician Assistant
DX: E11.42 Type 2 diabetes mellitus with diabetic polyneuropathy (principal); Z79.4 Long term (current) use of insulin; I10 Essential (primary) hypertension; E78.00 Pure hypercholesterolemia, unspecified
CPT/HCPCS: 99215; G2211

== ENCOUNTER → 2023-11-26 10:01 | Outpatient (BNVA) | payer MEDICARE, MEDICAID, SELFPAY | PROVIDERS: PCP Internal Medicine; Visit Provider Physician Assistant | DX: E11.42 Type 2 diabetes mellitus with diabetic polyneuropathy (principal); I10 Essential (primary) hypertension; E78.00 Pure hypercholesterolemia, unspecified; Z79.4 Long term (current) use of insulin | CPT/HCPCS: 82947; 99212 ==

== ENCOUNTER 2023-12-23 11:07 | Outpatient (AMB) | payer MEDICARE, MEDICAID, SELFPAY ==
--- NOTE | 2023-12-23 11:14 | MHC.OFFVIS ---
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 The patient also has a history of asthma and obstructive sleep apnea. She has been using the new respironic dream station. She is using more than 4 hours a night. However, she has not gotten any supplies. I did call her [employer] company and sent they will facilitate some supplies. In the meantime I did provide her mask F30 that she can try. Her asthma appears to be stable with the current respiratory medications. She has not had to use her rescue inhaler and she has not to use prednisone. She has been complaining of some discomfort over the right flank area. 03/25/2023 the patient is here for pulmonary follow-up visit. Overall she is doing better. She did complain the prednisone and the antibiotics during the last visit. Her chest discomfort is better. We did discuss and review the images from her last CT scan back in September 2022 with stable postoperative changes stable pulmonary nodules. She is due for repeat CT scan in September 2023. she continues use respiratory therapy with good effect. Her sleeping is overall better. again, her sleep study did not demonstrate any sleep apnea. She is using the Stiolto in the Flovent. These inhalers have been effective. Her respiratory exam is reassuring. The patient continues to do well will consider minimizing the inhaled steroid component. 08/05/2023 the patient is here for a pulmonary follow-up visit. The patient is still no better. She is still coughing. She had called a few weeks ago and I did send her a course of doxycycline. She did not feel like she completely improved she still having hard time with cough. Moderate severity. Denies any wheezing or chest tightness. She denies any fevers or chills. In addition to that she has been complaining of significant daytime drowsiness. She had been on CPAP before we had gotten multiple sleep studies but they have been negative for any sleep apnea. Although these were home sleep studies and the patient was not able to adequately sleep well during the study. She does have an elevated [place] score of 13/24. She does have cardiovascular risk factors. She also carries a diagnosis of sleep apnea. Will go ahead and request a repeat in-lab sleep study in order to get her back on CPAP. The patient also been followed closely for carcinoid lung cancer. The patient also has multiple pulmonary nodules that are being followed. Her last CT scan was 11/01/2022 and she is due for CT scan in 2023. Will go ahead and follow up with the patient after her CT scan in her sleep study. In the meantime will send her a 2nd course of antibiotics to treat her for bronchitis. She does not have any wheezing so therefore hold off on any prednisone. 11/11/2023 the patient is here for a pulmonary follow-up visit. The patient was in her usual state health until the last few months. She has not been feeling well she has had this productive cough now for several months. The last time she was here she was given Vantin but she did not feel like it helped. She still bringing up phlegm usually whitish or yellowish in color. Denies any hemoptysis. Typically sounds barky in nature. She has not underlying chronic bronchitis. Will going to go ahead and start her on azithromycin 3 times a week. In addition to that if she is no better she will get a sputum culture. She did have a CT scan of the chest done recently done on 10/18/2023 [facility]. It appears that she has a growing or new right upper lobe pulmonary nodule measuring 6 mm in size. The largest nodule that she had there a year ago was only 3 mm in size. Therefore, she is scheduled to go for repeat CT scan in 3-6 months. She will do that at [facility] as well. We did talk about the relevance of that. In the meantime will go ahead and treat her for the chronic bronchitis. She will continue with respiratory therapy. 12/23/2023 the patient is here for a pulmonary follow-up visit. She continues to have significant daytime drowsiness. Her [place] score is elevated 12/24. She was scheduled for the sleep study but then she had to reschedule. She has a new date sometime in January. The patient also has been having issues with a productive cough. She did complete the antibiotics and her mucus is clear but she still having significant chest congestion. Moderate severity. The only thing that helps her is when she goes on prednisone. Explained to her the concerns about using prednisone and worsening her other comorbidities. Therefore based on her chronic bronchitis and her frequent use of prednisone she will be a perfect candidate for Daliresp. We did talk about the adverse effects. Will go ahead and start her on the 500 mcg dose but she started every other day or so to get used to it. The patient also will be provided some prednisone case she gets worse but she should hold off for now. In addition to that she was found to have a new nodule back in October at [facility] was a 6 mm nodule. She is scheduled to have a repeat CT scan at [facility] in January. [facility] Medical History (Updated 11/19/23 @ 10:47 by Leroy Jauregui MD) Osteoarthritis Chest pain Calcific tendinitis of left shoulder Weakness of left upper extremity Weakness of both lower extremities Joint pain in fingers of both hands Joint pain in both hands Bilateral knee pain Vitamin B12 deficiency Bilateral ankle pain Rash Right foot pain Medicare annual wellness visit, subsequent Cervical cancer screening Bronchopneumonia Chronic low back pain Bilateral foot pain Bilateral hip pain Annual physical exam Stool incontinence Hyperlipidemia LDL goal <70 Bilateral hip pain Fibromyalgia Chronic bronchitis Vitamin D deficiency Post-thoracotomy pain syndrome COPD (chronic obstructive pulmonary disease) Depression Anxiety Type 2 diabetes mellitus with diabetic polyneuropathy Pulmonary nodules Allergic rhinitis GERD (gastroesophageal reflux disease) Morbid obesity with BMI of 40.0-44.9, adult Asthma Obstructive sleep apnea Lumbar degenerative disc disease Carcinoid tumor Coronary artery disease Benign essential hypertension Type 2 diabetes mellitus with hyperglycemia, with long-term current use of insulin Surgical History History of colonoscopy (~12/2013) History of tubal ligation History of lung biopsy (~07/2016) History of esophagogastroduodenoscopy (EGD) (~10/2011) History of lobectomy of lung (~08/2016) History of rectal sphincterotomy (~11/2013) History of cardiac cath (~07/2018) Family History Father Stroke Hypertension Diabetes Mother Diabetes Hypertension Other Arthritis Lupus Social History Household Members: Spouse Housing: Apartment Alcohol intake: never Patient Tobacco Use Status: Former Tobacco user Tobacco use type: Cigarette e-Cigarette/Vaping Use: Never Used Second Hand Smoke Exposure: Yes service: No Current occupational status: disabled Cognitive needs: No Hearing needs: No Vision needs: Yes Review of Systems Const Reports difficulty sleeping, Denies fatigue, Denies fever(s), Denies night sweats, Denies poor appetite, Reports snoring and Denies weight loss ENT Reports Normal hearing present, Denies dental pain, Denies dysphagia, Denies hearing loss, Denies mouth pain, Denies odynophagia, Denies throat swelling, Denies tongue swelling and Reports other (Dentition adequate) Card Denies chest pain and Reports dyspnea on exertion Resp Reports change in phlegm color, Reports chest congestion, Reports cough, Reports dyspnea on exertion, Reports snoring and Reports wheezing GI Denies abdominal pain, Denies melena, Reports bloating, Denies hematochezia, Denies constipation, Denies GI cramping, Denies dysphagia, Denies excessive flatus, Denies early satiety, Reports heartburn, Denies nausea, Denies odynophagia, Denies vomiting and Denies hematemesis Musc Reports no additional complaints and Reports myalgias Skin/Breast Denies pruritus, Denies lesions, Denies rash and Denies jaundice Neuro Reports Normal hearing present and Denies Abnormal speech present Endo Denies fatigue Aller/Immun Denies throat swelling, Denies tongue swelling and Reports wheezing Physical Exam Vital Signs: Last Vital Signs Pulse 84 12/23/23 11:15 BP 122/70 12/23/23 11:15 Pulse Ox 99 12/23/23 11:15 Oxygen Delivery Method Room Air 12/23/23 11:15 BMI result Body Mass Index 42.7 Const Orientation/consciousness: patient oriented x3 Neck Thyroid: Thyroid normal Lymphatic: no lymphadenopathy noted Resp Effort & Inspection: normal respiratory effort Auscultation: diminished lung sounds Cardio Rate: regular rate Rhythm: regular rhythm Heart sounds: S1 normal heart sound present and S2 normal heart sound present Skin General skin exam: no rashes or lesions noted Neuro General: patient oriented x3, gait normal and no focal motor deficits Cranial nerves: Yes Normal hearing present Speech: No Abnormal speech present Extrem Other: sensation intact General: Yes normal to inspection, Yes full ROM and Yes capillary refill normal Assessment & Plan Assessment & Plan (1) Carcinoid tumor: Comment: (S/P RUL lobectomy at [facility] [place] - 08/2016) Code(s): D3A.00 - Benign carcinoid tumor of unspecified site Category: Medical Qualifiers: Carcinoid tumor location: lung Carcinoid tumor malignancy status: malignant Qualified Code(s): C7A.090 - Malignant carcinoid tumor of the bronchus and lung (2) Post-thoracotomy pain syndrome: Code(s): G89.12 - Acute post-thoracotomy pain Category: Medical (3) Pulmonary nodules: Comment: Likely tumorlets Code(s): R91.8 - Other nonspecific abnormal finding of lung field Category: Medical (4) Obstructive sleep apnea: Comment: no evidence of ILDEFONSO on recent inlab PSG Code(s): G47.33 - Obstructive sleep apnea (adult) (pediatric) Category: Medical (5) Chronic bronchitis: Code(s): J42 - Unspecified chronic bronchitis Category: Medical Qualifiers: Chronic bronchitis type: mucopurulent Qualified Code(s): J41.1 - Mucopurulent chronic bronchitis Plan continue Flovent continue Stiolto daily SANGITA as needed nebulizer as needed Claritin continue Singulair restart Azithromycin MWF, EKG start Daliresp 500mcg daily Repeat CT chest per Thoracic surgery in January; RUL 6mm awaiting PSG F/U 3-4 months Medications: New roflumilast (Daliresp) 500 mcg PO DAILY 30 tabs 9RF 30 days azithromycin Take 1 tablet on Wednesday/Wednesday/Wednesday 250 mg PO 3XW 12 tabs 6RF 28 days K21.9 - Gastro-esophageal reflux disease without esophagitis prednisone PO daily; Take 2 tabs by mouth daily x 5 days, then 1 tab daily x 5 dyas 15 tabs 0RF 10 days Coding Level of Care Code Est Pt Level 4 (12855) Complex EM visit Add On G2211 Diagnoses 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 Carcinoid tumor location: lung Carcinoid tumor malignancy status: malignant Post-thoracotomy pain syndrome G89.12 Pulmonary nodules R91.8 Obstructive sleep apnea G47.33 Mucopurulent chronic bronchitis J41.1 Chronic bronchitis type: mucopurulent Time Spent (min) 20
[2023-12-23 11:15] VITALS: BP 122/70; PULSE 84; O2SAT 99; BMI 42.7
== END 2023-12-23 11:39 | disposition home or self-care (01) ==
PROVIDERS: PCP Internal Medicine; Visit Provider Hospitalist
DX: C7A.090 Malignant carcinoid tumor of the bronchus and lung (principal); G89.12 Acute post-thoracotomy pain; R91.8 Other nonspecific abnormal finding of lung field; G47.33 Obstructive sleep apnea (adult) (pediatric); J41.1 Mucopurulent chronic bronchitis
CPT/HCPCS: 99214; G2211

== ENCOUNTER → 2023-12-23 11:07 | Outpatient (BNVA) | payer MEDICARE, MEDICAID, SELFPAY | PROVIDERS: PCP Internal Medicine; Visit Provider Hospitalist | DX: J41.1 Mucopurulent chronic bronchitis (principal); R91.8 Other nonspecific abnormal finding of lung field; C7A.090 Malignant carcinoid tumor of the bronchus and lung; G89.12 Acute post-thoracotomy pain; G47.33 Obstructive sleep apnea (adult) (pediatric) | CPT/HCPCS: 99212 ==

== ENCOUNTER 2024-02-18 10:15 | Outpatient (AMB) | payer MEDICARE, MEDICAID, SELFPAY ==
[2024-02-18 10:20] VITALS: BMI 42.7
--- NOTE | 2024-02-18 10:20 | MHC.OFFVIS ---
Vital Signs 02/18/24 10:20 Height 5 ft 1 in Weight 226 lb BMI 42.7 Intake Visit Reasons: OV- Left knee pain, injection request Intake Note: Radha is a 67 year old female who presents today for a follow up of her bilateral knee pain. Hx of DM right knee injected in 2021, left knee injected 2022. Pt states her left knee is worse. Allergies penicillin G Allergy (Severe, Verified 02/18/24 10:21) Itching latex Allergy (Intermediate, Verified 02/18/24 10:21) Itching nitrofurantoin Allergy (Intermediate, Verified 02/18/24 10:21) itching and redness (in the legs) HPI HPI OV- Left knee pain, injection request: Details: Radha is a 67 year old female who presents today for a follow up of her bilateral knee pain. Hx of DM right knee injected in 2021, left knee injected 2022. She complains of pain in her back and her left knee. She states the last steroid injection was mildly helpful but her sugars are 227 today. I have referred her to pain management in the past but she states they never called her. [facility] Medical History (Updated 02/16/24 @ 13:15 by Leroy Jauregui MD) Stool incontinence Osteoarthritis Chest pain Calcific tendinitis of left shoulder Weakness of left upper extremity Weakness of both lower extremities Joint pain in fingers of both hands Joint pain in both hands Bilateral knee pain Vitamin B12 deficiency Bilateral ankle pain Rash Right foot pain Medicare annual wellness visit, subsequent Cervical cancer screening Bronchopneumonia Chronic low back pain Bilateral foot pain Bilateral hip pain Annual physical exam Hyperlipidemia LDL goal <70 Bilateral hip pain Fibromyalgia Chronic bronchitis Vitamin D deficiency Post-thoracotomy pain syndrome COPD (chronic obstructive pulmonary disease) Depression Anxiety Type 2 diabetes mellitus with diabetic polyneuropathy Pulmonary nodules Allergic rhinitis GERD (gastroesophageal reflux disease) Morbid obesity with BMI of 40.0-44.9, adult Asthma Obstructive sleep apnea Lumbar degenerative disc disease Carcinoid tumor Coronary artery disease Benign essential hypertension Type 2 diabetes mellitus with hyperglycemia, with long-term current use of insulin Surgical History (Updated 02/16/24 @ 13:15 by Leroy Jauregui MD) History of colonoscopy (~12/2013) History of tubal ligation History of lung biopsy (~07/2016) History of esophagogastroduodenoscopy (EGD) (~10/2011) History of lobectomy of lung (~08/2016) History of rectal sphincterotomy (~11/2013) History of cardiac cath (~07/2018) Family History Father Stroke Hypertension Diabetes Mother Diabetes Hypertension Other Arthritis Lupus Social History Household Members: Spouse Housing: Apartment Alcohol intake: never Patient Tobacco Use Status: Former Tobacco user Tobacco use type: Cigarette e-Cigarette/Vaping Use: Never Used Second Hand Smoke Exposure: Yes service: No Current occupational status: disabled Cognitive needs: No Hearing needs: No Vision needs: Yes Physical Exam Vital Signs: BMI result Body Mass Index 42.7 Extrem Other: Medial and lateral joint line tenderness left knee. Mild valgus malalignment. Antalgic gait. Assessment & Plan Assessment & Plan (1) Osteoarthritis of left knee: Code(s): M17.12 - Unilateral primary osteoarthritis, left knee Category: Medical Qualifiers: Osteoarthritis type: primary Qualified Code(s): M17.12 - Unilateral primary osteoarthritis, left knee Plan: This is a 60-year-old woman with questionably well-controlled diabetes and chronic pain with left knee arthritis. She is not a candidate for knee arthroplasty. Her sugars are high today and so we discussed gel injections. I think this is reasonable. We will also send her to pain management. (2) Lumbar radiculopathy: Code(s): M54.16 - Radiculopathy, lumbar region Category: Medical Plan: Referral pain management. Coding Level of Care Code Est Pt Level 4 (86125) Diagnoses Primary osteoarthritis of left knee M17.12 Osteoarthritis type: primary Lumbar radiculopathy M54.16
== END 2024-02-18 10:43 | disposition home or self-care (01) ==
PROVIDERS: PCP Internal Medicine; Visit Provider Orthopaedic Surgery
DX: M17.12 Unilateral primary osteoarthritis, left knee (principal); M54.16 Radiculopathy, lumbar region
CPT/HCPCS: 99214

== ENCOUNTER → 2024-02-18 10:15 | Outpatient (BNVA) | payer MEDICARE, MEDICAID, SELFPAY | PROVIDERS: PCP Internal Medicine; Visit Provider Orthopaedic Surgery | DX: M17.12 Unilateral primary osteoarthritis, left knee (principal); M54.16 Radiculopathy, lumbar region; M25.561 Pain in right knee | CPT/HCPCS: 99212 ==

== ENCOUNTER 2024-02-24 09:35 | Outpatient (REF) | payer MEDICARE, MEDICAID, SELFPAY ==
[2024-02-24 11:02] LABS: Estimated Average Glucose 154 mg/dL; Hemoglobin A1C 170.2528 umol/L; Total Hemoglobin (HGBA1C) 3237.7798 umol/L
[2024-02-24 11:31] LABS: Alanine Aminotransferase 14 U/L (0-31); Alkaline Phosphatase 159 U/L (39-117); Anion Gap 15 (12-20); Aspartate Amino Transferase 36 U/L (5-31); Bilirubin Total 0.8 mg/dL (0.0-1.0); Blood Urea Nitrogen 10 mg/dL (9-16); Carbon Dioxide 29 mmol/L (22-29); Chloride 102 mmol/L (96-108); Estimated Glomerular Filt Rate > 60; Glucose Fasting 158 mg/dL (60-99); Potassium 3.5 mmol/L (3.3-5.1); Sodium 142 mmol/L (135-145); Total Protein 7.8 g/dL (6.5-8.0)
[2024-02-24 16:26] LABS: Creatinine Urine 305.82 mg/dL; Microalbum/Creatinine Ratio Ur 11.7 ug/mg cr (<30)
== END 2024-02-24 09:36 | disposition home or self-care (01) ==
LOC: HO.LAB 09:35
PROVIDERS: PCP Internal Medicine; Visit Provider Physician Assistant
DX: E11.42 Type 2 diabetes mellitus with diabetic polyneuropathy (principal); Z79.4 Long term (current) use of insulin; R30.0 Dysuria
CPT/HCPCS: 36415; 80053; 82043; 82570; 83036

== ENCOUNTER 2024-03-01 11:21 | Outpatient (AMB) | payer MEDICARE, MEDICAID, SELFPAY ==
--- NOTE | 2024-03-01 11:24 | A.OFFVIS_ITS ---
Vital Signs 03/01/24 11:39 Height 5 ft 1 in Weight 215 lb BMI 40.6 BP 120/66 Blood Pressure Location Lt brachial Position Sitting Pulse 93 Intake Visit Reasons: Full incontinence of feces Intake Note: This patient presents for Full incontinence of feces. Pt c/o; unable to fully empty feels like there is still more and keeps straining, feels a external hemorrhoid, no bleeding, constipation, was given meds to assist with some relief Hx rectal sphincterotomy(Dr. Sidhu) 2013, Intellectual Property Paralegal Required: Yes Intellectual Property Paralegal Language: District Manager Major Accounts Sales Services: Intellectual Property Paralegal Present Intellectual Property Paralegal Name: Gianna GHOSH Information Interpreted: non-clinical & clinical Alternative Dispute Resolution Mediator: Alternative Dispute Resolution Mediator Present Accompanied by: Family/Other Allergies penicillin G Allergy (Severe, Verified 03/01/24 11:38) Itching latex Allergy (Intermediate, Verified 03/01/24 11:38) Itching nitrofurantoin Allergy (Intermediate, Verified 03/01/24 11:38) itching and redness (in the legs) Medication List - Last Reconciled 03/01/24 by Herve Sidhu MD [ADULT BRIEFS (size XL) As directed] [ADULT PULL-UPS (size XL) As directed] albuterol sulfate 90 mcg/actuation 2 puffs inhalation QID PRN albuterol sulfate 2.5 mg (3 mL) inhalation Q4-6H PRN alcohol swabs 1 pad topical TID amitriptyline 25 mg PO BEDTIME aspirin 81 mg PO DAILY 90 days atorvastatin 40 mg PO DAILY blood pressure monitor As directed blood sugar diagnostic (OneTouch Verio test strips) Three times a day blood sugar diagnostic (OneTouch Verio test strips) As directed tests 4X/day blood-glucose meter Three times a day blood-glucose meter (OneTouch Verio Flex Meter) As directed trsts 4 X/day cholecalciferol (vitamin D3) 50 mcg PO DAILY 90 days clotrimazole-betamethasone 1-0.05 % 1 appl topical BID PRN 7 days cyanocobalamin (vitamin B-12) 1,000 mcg PO DAILY 90 days dexlansoprazole 60 mg PO DAILY dextromethorphan-guaifenesin 5-100 mg/5 mL (Robitussin Cough-Chest Congestion DM) 10 mL PO Q6-8H PRN 15 days diclofenac sodium 1% (Arthritis Pain (diclofenac)) 2 grams topical QID PRN dicyclomine 1 tab tid and 2 qhs orally; [DISPOSABLE WIPES As directed] [DISPOSABLE WIPES As directed] dulaglutide (Trulicity) 0.75 mg (0.5 mL) subcut QWEEK famotidine 40 mg PO BEDTIME 15 days flash glucose scanning reader (SanguineStyle Mary Ann 2 Moore) As directed flash glucose sensor (FreeStyle Mary Ann 2 Sensor kit) As directed change every 14 days fluticasone propionate 220 mcg/actuation (Flovent HFA) 1 puff PO BID fluticasone propionate 50 mcg/actuation 2 sprays intranasal DAILY 30 days [FOUR-PRONGED CANE As directed] furosemide 20 mg PO DAILY glucose 12 grams (3 x 4 gram) PO Q15M hydrochlorothiazide 25 mg PO DAILY 90 days hydrocortisone 2.5% 1 appl topical BID PRN hydrocortisone 2.5% (Proctosol HC) 1 appl RI BID ibuprofen 800 mg PO TID PRN ipratropium-albuterol 0.5 mg-3 mg(2.5 mg base)/3 mL 3 mL inhalation QID PRN lancets (OneTouch Delica Lancets) Three times a day lancets (FreeStyle Lancets) As directed three time a day lancets (OneTouch Delica Plus Lancet) As directed-tests 4 X/day lancets (FreeStyle Lancets) As directed lidocaine 5% (Lidoderm) 1 patch topical DAILY 30 days [LIGHTWEIGHT WALKER WITH SEAT walker with seat] linaclotide (Linzess) 72 mcg PO QAM loratadine 10 mg PO DAILY PRN 90 days lorazepam 1 mg PO BID-TID PRN 30 days metformin 500 mg PO DAILY metoclopramide HCl (Reglan) 5 mg PO .tidachs metoprolol succinate ER 50 mg PO DAILY montelukast 10 mg PO BEDTIME nebulizers As directed nystatin 1 appl topical TID pen needle, diabetic (BD Ultra-Fine Cindy Pen Needle) twice daily pen needle, diabetic (Comfort EZ Pen [place]) As directed injects once a day prednisone 10 mg PO DAILY pregabalin 200 mg PO Q8H 30 days roflumilast (Daliresp) 500 mcg PO DAILY 30 days [ROLLATOR with SEAT As directed] sertraline 50 mg PO DAILY Shower Chair As directed tiotropium-olodaterol 2.5-2.5 mcg/actuation (Stiolto Respimat) 2 puffs inhalation DAILY tizanidine 4 mg PO TID PRN tramadol 50 mg PO TID PRN 30 days umeclidinium-vilanterol 62.5-25 mcg/actuation (Anoro Ellipta) 1 inh inhalation DAILY valacyclovir 500 mg PO BID valsartan 320 mg PO DAILY HPI HPI Full incontinence of feces: Details: [age] year old female referred for fecal incontinence. She actually describes multiple complaints with regards to the bowel movements. She says that often times, she has the urge to go to the bathroom but when she sits down on the toilet, she does not have any bowel movement. However, frequently, she says that she has a strain a lot to have bowel movements. Also, she says that occasionally, she noticed says leakage of stool and she is not even aware that she has the urge to go. She says that this has been going on for about a month and she has started to wear diapers She denies bleeding per rectum. She says she does have hemorrhoids She also says that she had 5 vaginal deliveries when she was younger. [facility] Medical History (Updated 03/01/24 @ 11:47 by Herve Sidhu MD) Frequent fecal incontinence Stool incontinence Osteoarthritis Chest pain Calcific tendinitis of left shoulder Weakness of left upper extremity Weakness of both lower extremities Joint pain in fingers of both hands Joint pain in both hands Bilateral knee pain Vitamin B12 deficiency Bilateral ankle pain Rash Right foot pain Medicare annual wellness visit, subsequent Cervical cancer screening Bronchopneumonia Chronic low back pain Bilateral foot pain Bilateral hip pain Annual physical exam Hyperlipidemia LDL goal <70 Bilateral hip pain Fibromyalgia Chronic bronchitis Vitamin D deficiency Post-thoracotomy pain syndrome COPD (chronic obstructive pulmonary disease) Depression Anxiety Type 2 diabetes mellitus with diabetic polyneuropathy Pulmonary nodules Allergic rhinitis GERD (gastroesophageal reflux disease) Morbid obesity with BMI of 40.0-44.9, adult Asthma Obstructive sleep apnea Lumbar degenerative disc disease Carcinoid tumor Coronary artery disease Benign essential hypertension Type 2 diabetes mellitus with hyperglycemia, with long-term current use of insulin Surgical History (Updated 02/16/24 @ 13:15 by Leroy Jauregui MD) History of colonoscopy (~12/2013) History of tubal ligation History of lung biopsy (~07/2016) History of esophagogastroduodenoscopy (EGD) (~10/2011) History of lobectomy of lung (~08/2016) History of rectal sphincterotomy (~11/2013) History of cardiac cath (~07/2018) Family History Father Stroke Hypertension Diabetes Mother Diabetes Hypertension Other Arthritis Lupus Social History Household Members: Spouse Housing: Apartment Alcohol intake: never Patient Tobacco Use Status: Former Tobacco user Tobacco use type: Cigarette e-Cigarette/Vaping Use: Never Used Second Hand Smoke Exposure: Yes service: No Current occupational status: disabled Cognitive needs: No Hearing needs: No Vision needs: Yes Review of Systems Const Denies chills and Denies fever(s) Card Denies chest pain, Denies dyspnea and Reports dyspnea on exertion Resp Denies cough, Denies dyspnea and Reports dyspnea on exertion GI Denies hematochezia, Denies change in bowel habits and Reports fecal incontinence Denies hematuria Musc Reports abnormal gait, Reports back pain, Reports arthralgias and Reports limited range of motion Neuro Reports abnormal gait, Denies focal weakness and Denies convulsions Psych Denies depression and Denies mood swings Physical Exam Const Other: Morbidly obese, using a walker General: comfortable and no acute distress Orientation/consciousness: patient oriented x3 Neck Neck: Yes no lymphadenopathy Resp Auscultation: clear to auscultation bilaterally Cardio Rhythm: regular rhythm GI Other: Rectal exam shows some small external hemorrhoids on both the left and right side, good sphincter tone on both squeeze and resting pressures, no palpable sphincter defect Palpation (GI): Soft to palpation, nontender and no guarding Neuro General: patient oriented x3 Office Procedures Anoscopy She was in colleen-knife position. The anoscope was gently inserted. A full examination of the anal canal was done. She had mixed internal and external hemorrhoidal columns on both the left and right side. There was no fissure. There was no induration. There was no ulceration. There was no bleeding There were no lesions seen She actually has good squeeze and resting pressures. [id number] Assessment & Plan Assessment & Plan (1) Frequent fecal incontinence: Code(s): R15.9 - Full incontinence of feces Category: Medical Plan: She actually has multiple complaints with regards to her bowel movements. She describes urgency periodically as well as straining on other days. Furthermore, she describes some leakage of stools. She this has been going on for over a month. Current exam does not reveal any sphincter defect she has good resting and squeeze pressures I will start her on fiber supplementation with Metamucil to achieve consistency and regularity of her bowel movements. I told her that if she does not notice improvement, I will see her again in about 2-3 months She is comfortable with the plan. Medications: New psyllium husk (Metamucil) mix into at least 8 oz of water or juice before administering 1 tbsp PO BID 660 grams 2RF Coding Level of Care Code New Pt Level 3 (21097) Diagnoses Frequent fecal incontinence R15.9 CPT Codes Details - CPT: 49391-Esgspjwc ([id number])
[2024-03-01 11:39] VITALS: BP 120/66; PULSE 93; BMI 40.6
== END 2024-03-01 11:47 | disposition home or self-care (01) ==
PROVIDERS: PCP Internal Medicine; Referring Provider Internal Medicine; Visit Provider Surgery
DX: R15.9 Full incontinence of feces (principal); K64.8 Other hemorrhoids
CPT/HCPCS: 46600; 99203

== ENCOUNTER → 2024-03-01 11:21 | Outpatient (BNVA) | payer MEDICARE, MEDICAID, SELFPAY | PROVIDERS: PCP Internal Medicine; Referring Provider Internal Medicine; Visit Provider Surgery | DX: R15.9 Full incontinence of feces (principal) | CPT/HCPCS: 46600; 99202 ==

== ENCOUNTER 2024-03-02 11:15 | Outpatient (AMB) | payer MEDICARE, MEDICAID, SELFPAY ==
--- NOTE | 2024-03-02 11:20 | MHC.OFFVIS ---
Vital Signs 03/02/24 11:24 Height 5 ft 1 in Weight 220 lb BMI 41.6 BP 111/89 Blood Pressure Location Lt brachial Position Sitting Pulse 88 Pulse Source Pulse Oximeter Intake Visit Reasons: Radiculopathy, lumbar region/las seen 2022 Full Fashioned Garment Knitter Required: Yes Full Fashioned Garment Knitter Language: Amharic Allergies penicillin G Allergy (Severe, Verified 03/02/24 11:26) Itching latex Allergy (Intermediate, Verified 03/02/24 11:26) Itching nitrofurantoin Allergy (Intermediate, Verified 03/02/24 11:26) itching and redness (in the legs) [facility] Medical History (Updated 03/02/24 @ 12:22 by Monika Duncan, MANUAL EQUIPMENT MECHANIC, PAYROLL TAX ANALYST) Frequent fecal incontinence Stool incontinence Osteoarthritis Chest pain Calcific tendinitis of left shoulder Weakness of left upper extremity Weakness of both lower extremities Joint pain in fingers of both hands Joint pain in both hands Bilateral knee pain Vitamin B12 deficiency Bilateral ankle pain Rash Right foot pain Medicare annual wellness visit, subsequent Cervical cancer screening Bronchopneumonia Chronic low back pain Bilateral foot pain Bilateral hip pain Annual physical exam Hyperlipidemia LDL goal <70 Bilateral hip pain Fibromyalgia Chronic bronchitis Vitamin D deficiency Post-thoracotomy pain syndrome COPD (chronic obstructive pulmonary disease) Depression Anxiety Type 2 diabetes mellitus with diabetic polyneuropathy Pulmonary nodules Allergic rhinitis GERD (gastroesophageal reflux disease) Morbid obesity with BMI of 40.0-44.9, adult Asthma Obstructive sleep apnea Lumbar degenerative disc disease Carcinoid tumor Coronary artery disease Benign essential hypertension Type 2 diabetes mellitus with hyperglycemia, with long-term current use of insulin Surgical History History of colonoscopy (~12/2013) History of tubal ligation History of lung biopsy (~07/2016) History of esophagogastroduodenoscopy (EGD) (~10/2011) History of lobectomy of lung (~08/2016) History of rectal sphincterotomy (~11/2013) History of cardiac cath (~07/2018) Family History Father Stroke Hypertension Diabetes Mother Diabetes Hypertension Other Arthritis Lupus Social History Household Members: Spouse Housing: Apartment Alcohol intake: never Patient Tobacco Use Status: Former Tobacco user Tobacco use type: Cigarette e-Cigarette/Vaping Use: Never Used Second Hand Smoke Exposure: Yes service: No Current occupational status: disabled Cognitive needs: No Hearing needs: No Vision needs: Yes Physical Exam Vital Signs: Last Vital Signs Pulse 88 03/02/24 11:24 BP 111/89 03/02/24 11:24 BMI result Body Mass Index 41.6 Assessment & Plan Assessment & Plan (1) Sacroiliac joint dysfunction of right side: Code(s): M53.3 - Sacrococcygeal disorders, not elsewhere classified Category: Medical (2) Polyarthralgia: Code(s): M25.50 - Pain in unspecified joint Category: Medical (3) Trapezius muscle strain: Code(s): S46.819A - Strain of other muscles, fascia and tendons at shoulder and upper arm level, unspecified arm, initial encounter Category: Medical (4) Muscle pain, lumbar: Code(s): M79.18 - Myalgia, other site Category: Medical (5) Fibromyalgia: Code(s): M79.7 - Fibromyalgia Category: Medical (6) Lumbar degenerative disc disease: Code(s): M51.36 - Other intervertebral disc degeneration, lumbar region Category: Medical (7) Diabetic neuropathy: Code(s): E11.40 - Type 2 diabetes mellitus with diabetic neuropathy, unspecified Category: Medical (8) Myofascial muscle pain: Code(s): M79.18 - Myalgia, other site Category: Medical (9) Sacroiliac joint dysfunction of left side: Code(s): M53.3 - Sacrococcygeal disorders, not elsewhere classified Category: Medical Plan Radha presented back to the office today for follow up. X-ray ordered to evaluate sacroiliac joint, left side Order placed for PT eval and treat Lidocaine 5% patches. Patient advised on use Questions and concerns were answered, patient agrees to the plan. Follow up after PT, sooner if needed Orders: Orders PT Evaluation and Treatment Today M53.3 - Sacrococcygeal disorders, not elsewhere classified, M79.18 - Myalgia, other site Medications: Refilled lidocaine 5% (Lidoderm) leave on most painful area for up to 12 hrs 1 patch topical DAILY 30 days 30 ea 3RF G89.29 - Other chronic pain, M54.50 - Low back pain, unspecified Coding Level of Care Code Est Pt Level 3 (01058) Complex EM visit Add On G2211 Diagnoses Sacroiliac joint dysfunction of right side M53.3 Polyarthralgia M25.50 Trapezius muscle strain S46.819A Muscle pain, lumbar M79.18 Fibromyalgia M79.7 Lumbar degenerative disc disease M51.36 Diabetic neuropathy E11.40 Myofascial muscle pain M79.18 Sacroiliac joint dysfunction of left side M53.3
[2024-03-02 11:24] VITALS: BP 111/89; PULSE 88; BMI 41.6
== END 2024-03-02 11:48 | disposition home or self-care (01) ==
PROVIDERS: PCP Internal Medicine; Visit Provider Registered Nurse Emergency
DX: M53.3 Sacrococcygeal disorders, not elsewhere classified (principal); M25.50 Pain in unspecified joint; S46.819A Strain of other muscles, fascia and tendons at shoulder and upper arm level, unspecified arm, initial encounter; M79.18 Myalgia, other site; M79.7 Fibromyalgia; M51.369 Other intervertebral disc degeneration, lumbar region without mention of lumbar back pain or lower extremity pain; E11.40 Type 2 diabetes mellitus with diabetic neuropathy, unspecified
CPT/HCPCS: 99213; G2211

== ENCOUNTER 2024-03-02 11:15 | Outpatient (REF) | payer MEDICARE, MEDICAID, SELFPAY | END 2024-03-02 11:16 | disposition home or self-care (01) | LOC: HO.XRAY 11:15 | PROVIDERS: PCP Internal Medicine; Visit Provider Registered Nurse Emergency | DX: M53.3 Sacrococcygeal disorders, not elsewhere classified (principal); M25.50 Pain in unspecified joint; S46.819A Strain of other muscles, fascia and tendons at shoulder and upper arm level, unspecified arm, initial encounter; M79.7 Fibromyalgia; M51.360 Other intervertebral disc degeneration, lumbar region with discogenic back pain only; E11.40 Type 2 diabetes mellitus with diabetic neuropathy, unspecified | CPT/HCPCS: 73502; 99212 ==

== ENCOUNTER 2024-03-06 11:03 | Outpatient (AMB) | payer MEDICARE, MEDICAID, SELFPAY ==
--- NOTE | 2024-03-06 11:05 | A.OFFVIS_ITS ---
Vital Signs 03/06/24 11:08 Height 5 ft 1 in Weight 220 lb 7.396 oz BMI 41.7 BP 120/70 Blood Pressure Location Rt brachial Position Sitting Pulse 88 Pulse Source Pulse Oximeter Intake Visit Reasons: DM/Left vm Intake Note: Patient presents today for D2MT follow up visit. Last Diabetic Eye exam: August 2023 Last Podiatry Visit: Doesn't have one Most Recent HgA1c: 7.0% 02/24/2024 Random Glucose: 152 mg/dL, Today Supervisor Cabinetmaker Required: Yes Supervisor Cabinetmaker Language: Dip Stand Loader Services: Supervisor Cabinetmaker Present Information Interpreted: non-clinical & clinical Accompanied by: HIDES INSPECTOR Allergies penicillin G Allergy (Severe, Verified 03/06/24 11:06) Itching latex Allergy (Intermediate, Verified 03/06/24 11:06) Itching nitrofurantoin Allergy (Intermediate, Verified 03/06/24 11:06) itching and redness (in the legs) HPI HPI DM/Left vm: Details: Patient is 68 yo female with DM type 2 diagnosed around 2014, who presents for management her diabetes. Past medical history:DM2, HTN, HLD, COPD, ILDEFONSO, gastropa resis. Supervisor Cabinetmaker: Angela #[id number] Endo: The A1c is 7. She is currently on trulicity 3 mg weekly, metformin 500 mg daily. She states every night she feels her blood sugars drop to mid 60s. (no records of this on the cgm). -Micro and macrovascular complications: neuropathy She was on Levemir in the past but stopped this because she felt like she was getting hypoglycemic. She did not tolerate ozempic, -Continuous glucose monitoring: EverConnect download shows she is using the sensor 75 % of the time. Average glucose is 129 with G mi of 6.4 % and variability 21.9%. 94 % range with 6% hyperglycemia and no hypoglycemia She is frustrated with her weight but realizes eating cookies and having coffee at night are not helpful. -Eye exam: UTD May 2023 -Follows with Podiatry CV: Blood pressure today in the office is 120/70. She is currently on hydrochlorothiazide 25 mg, metoprolol 50 mg, and valsartan 320 mg. Her cholesterol is controlled with atorvastatin 40 mg. Her last LDL was 80 PFSH Medical History (Updated 03/06/24 @ 11:28 by Miriam Nix PA-C) Frequent fecal incontinence Stool incontinence Osteoarthritis Chest pain Calcific tendinitis of left shoulder Weakness of left upper extremity Weakness of both lower extremities Joint pain in fingers of both hands Joint pain in both hands Bilateral knee pain Vitamin B12 deficiency Bilateral ankle pain Rash Right foot pain Medicare annual wellness visit, subsequent Cervical cancer screening Bronchopneumonia Chronic low back pain Bilateral foot pain Bilateral hip pain Annual physical exam Hyperlipidemia LDL goal <70 Bilateral hip pain Fibromyalgia Chronic bronchitis Vitamin D deficiency Post-thoracotomy pain syndrome COPD (chronic obstructive pulmonary disease) Depression Anxiety Type 2 diabetes mellitus with diabetic polyneuropathy Pulmonary nodules Allergic rhinitis GERD (gastroesophageal reflux disease) Morbid obesity with BMI of 40.0-44.9, adult Asthma Obstructive sleep apnea Lumbar degenerative disc disease Carcinoid tumor Coronary artery disease Benign essential hypertension Type 2 diabetes mellitus with hyperglycemia, with long-term current use of insulin Surgical History History of colonoscopy (~12/2013) History of tubal ligation History of lung biopsy (~07/2016) History of esophagogastroduodenoscopy (EGD) (~10/2011) History of lobectomy of lung (~08/2016) History of rectal sphincterotomy (~11/2013) History of cardiac cath (~07/2018) Family History Father Stroke Hypertension Diabetes Mother Diabetes Hypertension Other Arthritis Lupus Social History Household Members: Spouse Housing: Apartment Alcohol intake: never Patient Tobacco Use Status: Former Tobacco user Tobacco use type: Cigarette e-Cigarette/Vaping Use: Never Used Second Hand Smoke Exposure: Yes service: No Current occupational status: disabled Cognitive needs: No Hearing needs: No Vision needs: Yes Physical Exam Vital Signs: Last Vital Signs Pulse 88 03/06/24 11:08 BP 120/70 03/06/24 11:08 BMI result Body Mass Index 41.7 Const Orientation/consciousness: patient oriented x3 HEENT Ears: hearing grossly normal bilaterally Neck Thyroid: Thyroid normal Lymphatic: no lymphadenopathy noted Resp Auscultation: clear to auscultation bilaterally Cardio Rate: regular rate Rhythm: regular rhythm Heart sounds: S1 normal heart sound present and S2 normal heart sound present Skin General skin exam: no rashes or lesions noted Neuro General: patient oriented x3, gait normal and no focal motor deficits Office Procedures Glucose Monitoring Details Details: see [facility] [id number] - Glucose monitoring, continuous-physician I&R Procedure code (CPT) selection complete Results Reviewed Results Reviewed: Laboratory Tests 11/18/23 02/24/24 02/24/24 10:09 09:49 14:06 Creatinine 0.72 Estimated GFR > 60 Estimat Average Glucose 154 Hemoglobin A1c % 7.9 H 7.0 H Triglycerides 105 Cholesterol 143 LDL Cholesterol, Calc 84 HDL Cholesterol 38 L Vitamin B12 1684 H Urine Creatinine 305.82 Urine Microalbumin 36.0 Microalb/Creat Ratio 11.7 Laboratory Tests 02/24/24 09:49 AST 36 H ALT 14 Assessment & Plan Assessment & Plan (1) Controlled type 2 diabetes mellitus: Code(s): E11.9 - Type 2 diabetes mellitus without complications Category: Medical Plan: d/c metformin continue trulicity 3 mg weekly f/u 3 months or sooner prn (2) Benign essential hypertension: Code(s): I10 - Essential (primary) hypertension Category: Medical Plan: wnl continue plan (3) Pure hypercholesterolemia: Code(s): E78.00 - Pure hypercholesterolemia, unspecified Category: Medical Plan: continue atorvastatin discussed low fat diet (4) Elevated LFTs: Code(s): R79.89 - Other specified abnormal findings of blood chemistry Category: Medical Plan: stable u/s ordered will follow up pending test results. Orders: Orders US abdomen comp w elastography Today R79.89 - Other specified abnormal findings of blood chemistry Comprehensive [place]. Panel Fast Today E11.9 - Type 2 diabetes mellitus without complications, E78.00 - Pure hypercholesterolemia, unspecified, I10 - Essential (primary) hypertension, R79.89 - Other specified abnormal findings of blood chemistry Hemoglobin A1c Today E11.9 - Type 2 diabetes mellitus without complications, E78.00 - Pure hypercholesterolemia, unspecified, I10 - Essential (primary) hypertension, R79.89 - Other specified abnormal findings of blood chemistry B Type Natriuretic Peptide Today E11.9 - Type 2 diabetes mellitus without complications, E78.00 - Pure hypercholesterolemia, unspecified, I10 - Essential (primary) hypertension, R79.89 - Other specified abnormal findings of blood chemistry Coding Level of Care Code Est Pt Level 4 (76947) Diagnoses Controlled type 2 diabetes mellitus E11.9 Benign essential hypertension I10 Pure hypercholesterolemia E78.00 Elevated LFTs R79.89 CPT Codes Details - CPT: 54395 - Glucose monitoring, continuous-physician I&R ([id number])
[2024-03-06 11:08] VITALS: BP 120/70; PULSE 88; BMI 41.7
[2024-03-06 11:17] LABS: Glucose, Whole Blood 152 mg/dL (60-115)
== END 2024-03-06 11:54 | disposition home or self-care (01) ==
PROVIDERS: PCP Internal Medicine; Visit Provider Physician Assistant
DX: E11.9 Type 2 diabetes mellitus without complications (principal); I10 Essential (primary) hypertension; E78.00 Pure hypercholesterolemia, unspecified; R79.89 Other specified abnormal findings of blood chemistry

== ENCOUNTER → 2024-03-06 11:03 | Outpatient (BNVA) | payer MEDICARE, MEDICAID, SELFPAY | PROVIDERS: PCP Internal Medicine; Visit Provider Physician Assistant | DX: E11.43 Type 2 diabetes mellitus with diabetic autonomic (poly)neuropathy (principal); K31.84 Gastroparesis; I10 Essential (primary) hypertension; J44.9 Chronic obstructive pulmonary disease, unspecified; G47.33 Obstructive sleep apnea (adult) (pediatric); E78.00 Pure hypercholesterolemia, unspecified; R79.89 Other specified abnormal findings of blood chemistry | CPT/HCPCS: 82947; 99212 ==

== ENCOUNTER 2024-03-16 15:34 | Outpatient (AMB) | payer MEDICARE, MEDICAID, SELFPAY ==
[2024-03-16 15:36] VITALS: BP 110/76; PULSE 90; BMI 41.6
--- NOTE | 2024-03-16 15:36 | MHC.OFFVIS ---
Vital Signs 03/16/24 15:36 Height 5 ft 1 in Weight 220 lb 0.341 oz BMI 41.6 BP 110/76 Blood Pressure Location Lt brachial Position Sitting Pulse 90 Pulse Source Pulse Oximeter Intake Visit Reasons: shoulder pain Intake Note: Patient last seen by Qiana Crawford on 09/03/23. Presents today for PsA follow up. 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 [employer] Required: No Accompanied by: Grand Child Allergies penicillin G Allergy (Severe, Verified 03/16/24 15:40) Itching latex Allergy (Intermediate, Verified 03/16/24 15:40) Itching nitrofurantoin Allergy (Intermediate, Verified 03/16/24 15:40) itching and redness (in the legs) Medication List - Last Reconciled 03/16/24 by Melanie Dill MD [ADULT BRIEFS (size XL) As directed] [ADULT PULL-UPS (size XL) As directed] albuterol sulfate 90 mcg/actuation 2 puffs inhalation QID PRN albuterol sulfate 2.5 mg (3 mL) inhalation Q4-6H PRN alcohol swabs 1 pad topical TID amitriptyline 25 mg PO BEDTIME aspirin 81 mg PO DAILY 90 days atorvastatin 40 mg PO DAILY blood pressure monitor As directed blood sugar diagnostic (OneTouch Verio test strips) Three times a day blood sugar diagnostic (OneTouch Verio test strips) As directed tests 4X/day blood-glucose meter Three times a day blood-glucose meter (OneTouch Verio Flex Meter) As directed trsts 4 X/day cholecalciferol (vitamin D3) 50 mcg PO DAILY 90 days clotrimazole-betamethasone 1-0.05 % 1 appl topical BID PRN 7 days cyanocobalamin (vitamin B-12) 1,000 mcg PO DAILY 90 days dexlansoprazole 60 mg PO DAILY dextromethorphan-guaifenesin 5-100 mg/5 mL (Robitussin Cough-Chest Congestion DM) 10 mL PO Q6-8H PRN 15 days diclofenac sodium 1% (Arthritis Pain (diclofenac)) 2 grams topical QID PRN dicyclomine 1 tab tid and 2 qhs orally; [DISPOSABLE WIPES As directed] [DISPOSABLE WIPES As directed] dulaglutide (Trulicity) mg subcut famotidine 40 mg PO BEDTIME 15 days flash glucose scanning reader (Cohuman Mary Ann 2 [place]) As directed flash glucose sensor (FreeStyle Mary Ann 2 Sensor kit) As directed change every 14 days fluticasone propionate 220 mcg/actuation (Flovent HFA) 1 puff PO BID fluticasone propionate 50 mcg/actuation 2 sprays intranasal DAILY 30 days [FOUR-PRONGED CANE As directed] furosemide 20 mg PO DAILY glucose 12 grams (3 x 4 gram) PO Q15M hydrochlorothiazide 25 mg PO DAILY 90 days hydrocortisone 2.5% 1 appl topical BID PRN hydrocortisone 2.5% (Proctosol HC) 1 appl MD BID ibuprofen 800 mg PO TID PRN ipratropium-albuterol 0.5 mg-3 mg(2.5 mg base)/3 mL 3 mL inhalation QID PRN lancets (OneTouch Delica Lancets) Three times a day lancets (FreeStyle Lancets) As directed three time a day lancets (OneTouch Delica Plus Lancet) As directed-tests 4 X/day lancets (FreeStyle Lancets) As directed lidocaine 5% (Lidoderm) 1 patch topical DAILY 30 days [LIGHTWEIGHT WALKER WITH SEAT walker with seat] linaclotide (Linzess) 72 mcg PO QAM loratadine 10 mg PO DAILY PRN 90 days memantine 10 mg PO BID metformin 500 mg PO DAILY metoclopramide HCl (Reglan) 5 mg PO .tidachs metoprolol succinate ER 50 mg PO DAILY montelukast 10 mg PO BEDTIME nebulizers As directed nystatin 1 appl topical TID pen needle, diabetic (BD Ultra-Fine Cindy Pen Needle) twice daily pen needle, diabetic (Comfort EZ Pen [place]) As directed injects once a day prednisone 10 mg PO DAILY pregabalin 200 mg PO Q8H 30 days psyllium husk (Metamucil) 1 tbsp PO BID roflumilast (Daliresp) 500 mcg PO DAILY 30 days [ROLLATOR with SEAT As directed] sertraline 50 mg PO DAILY Shower Chair As directed tiotropium-olodaterol 2.5-2.5 mcg/actuation (Stiolto Respimat) 2 puffs inhalation DAILY tizanidine 4 mg PO TID PRN tramadol 50 mg PO TID PRN 30 days umeclidinium-vilanterol 62.5-25 mcg/actuation (Anoro Ellipta) 1 inh inhalation DAILY valacyclovir 500 mg PO BID valsartan 320 mg PO DAILY HPI Comments Details: Spoke with patient in her yomba shoshone language Patient is a 68 y.o. female with type II DM complicated by neuropathy, HTN c/b CAD and HLD here today for follow up of polyarticular OA, Frozen shoulder and fibromyalgia Interval History: Last seen 09/03/2023 with Qiana Crawford at that time patient had injection of her left shoulder with steroids for frozen shoulder. She was also sent to PT but has not had any sessions Today, Notes some improvement to the left shoulder but she continues to have limitations with it Most notable is her left knee pain: worse at the end of the day, when ascending stairs, and getting up from seated position Rheumatology History: Patient established care 01/18/2023 for the management of her chronic joint pain. At that time she did not have any evidence of inflammatory synovitis or joint pain Her history and exam was consistent with degenerative joint disease and fibromyalgia Current Rheumatology Medications: Tizanidine 10mg PO TID PRN Tramadol 50mg PO TID PRN Pregabalin 200mg q8h Diclofenac 1% gel PFSH Medical History (Updated 03/17/24 @ 12:52 by Melanie Dill MD) Frozen shoulder Frequent fecal incontinence Stool incontinence Osteoarthritis Chest pain Calcific tendinitis of left shoulder Weakness of left upper extremity Weakness of both lower extremities Joint pain in fingers of both hands Joint pain in both hands Bilateral knee pain Vitamin B12 deficiency Bilateral ankle pain Rash Right foot pain Medicare annual wellness visit, subsequent Cervical cancer screening Bronchopneumonia Chronic low back pain Bilateral foot pain Bilateral hip pain Annual physical exam Hyperlipidemia LDL goal <70 Bilateral hip pain Fibromyalgia Chronic bronchitis Vitamin D deficiency Post-thoracotomy pain syndrome COPD (chronic obstructive pulmonary disease) Depression Anxiety Type 2 diabetes mellitus with diabetic polyneuropathy Pulmonary nodules Allergic rhinitis GERD (gastroesophageal reflux disease) Morbid obesity with BMI of 40.0-44.9, adult Asthma Obstructive sleep apnea Lumbar degenerative disc disease Carcinoid tumor Coronary artery disease Benign essential hypertension Type 2 diabetes mellitus with hyperglycemia, with long-term current use of insulin Surgical History History of colonoscopy (~12/2013) History of tubal ligation History of lung biopsy (~07/2016) History of esophagogastroduodenoscopy (EGD) (~10/2011) History of lobectomy of lung (~08/2016) History of rectal sphincterotomy (~11/2013) History of cardiac cath (~07/2018) Family History Father Stroke Hypertension Diabetes Mother Diabetes Hypertension Other Arthritis Lupus Social History Household Members: Spouse Housing: Apartment Alcohol intake: never Patient Tobacco Use Status: Former Tobacco user Tobacco use type: Cigarette e-Cigarette/Vaping Use: Never Used Second Hand Smoke Exposure: Yes service: No Current occupational status: disabled Cognitive needs: No Hearing needs: No Vision needs: Yes Review of Systems Const Details: Review of Systems Constitutional: Denies fever, chills, weight loss ENT: Denies vision changes, eye pain or eye redness, dental caries, dry mouth GI: Denies nausea, vomiting, diarrhea, abdominal pain, change in BM Pulm: Denies SOB, ALVAREZ, hemoptysis, wheezing Cards: Denies chest pain, palpitations Skin: Denies Raynaud's, rash, nail changes, photosensitivity, AUTOMOBILE TESTER: Denies headaches, weakness, paresthesias, recurrent falls MSK: as per HPI All other systems reviewed and are unremarkable except noted above Physical Exam Vital Signs: Last Vital Signs Pulse 90 03/16/24 15:36 BP 110/76 03/16/24 15:36 BMI result Body Mass Index 41.6 Physical Examination CONSTITUITIONAL Patient alert and cooperative. Well appearing and in no apparent painful distress HEENT Conjunctiva and sclera clear. ?Pupils equal round and reactive to light. ?No lymphadenopathy. ? CHEST/RESPIRATORY SYSTEM Normal respiratory effort and able to speak in complete sentences. ?Clear to auscultation bilaterally. ?No crackles, rales, rhonchi, wheezes heard. CARDIAC SYSTEM Regular rate and rhythm. ?S1 and S2 heard no murmurs. ?Radial pulses intact bilaterally MSK Hands: ?Good head of transport logistics strength bilaterally. No deformities noted. ?No synovitis noted to the MCPs, PIPs or DIPs. ?No tenderness to palpation of these joints. Wrists: ?Full range of motion at the wrists without pain. ?No tenderness to palpation or synovitis noted to the wrists. Elbows: Full range of motion without pain. No tenderness, weakness, swelling, increased warmth or erythema. Shoulders: Left shoulder with restricted range of motion in all planes. Right shoulder with full range of motion Hips: Full range of motion without pain. Hip bursa: Tenderness to palpation Knees: ?Full range of motion. ?The nurse palpation of the left knee joint as well as the left pes anserine bursa. Right knee without abnormalities Ankles: Full range of motion. ?No tenderness, swelling, increased warmth or erythema.? Tender points: Tenderness to palpation of the bilateral trapezius, supraspinatus, greater trochanters, anterior costochondral junctions, bilateral gluteal areas, bilateral suboccipital muscle insertions SKIN Skin intact without rashes. Office Procedures AMB Joint Injection/Aspiration Joint Injection/Aspiration Details: Procedure was explained to the patient and consent was obtained. ? The area of interest was identified and confirmed with patient. ?This was subsequently cleaned with chlorhexidine x3. ? The area was then anesthetized using ethyl chloride spray. 40 mg Kenalog with 1 cc 1% lidocaine was injected without issue. ?Minimal to no bleeding. ?Patient tolerated procedure. Primary Site: left knee Prep: site was prepped using aseptic technique and ethochloride spray was applied Injected: 40 mg of, Kenalog, with 1 mL of, 1% plain lidocaine and in the joint Approach Used: lateral parapatellar Procedure: The patient tolerated the procedure well Coding 04427 - Large joint Procedure code (CPT) selection complete Office Meds lidocaine (PF) 10 mg/mL (1 %) injection solution Performing Provider: Melanie Dill MD Performing Location: [facility] [place] [facility] Administered by: Melanie Dill MD on 03/17/24 12:53 Dose Route Admin Location Dispensed Lot Number Expiration Date [facility] Perioperative Manager 10 mg intra-articular left knee 2 mL [id number] 06/13/26 76877-713-57 [facility] Kenalog 40 mg/mL suspension for injection Performing Provider: Melanie Dill MD Performing Location: [facility] [place] [facility] Administered by: Melanie Dill MD on 03/17/24 12:53 Dose Route Admin Location Dispensed Lot Number Expiration Date [facility] Perioperative Manager 40 mg intra-articular left knee 1 mL [id number] 09/12/25 [address]-4 [employer] Results Reviewed Results Reviewed: Laboratory Tests 01/19/23 11:09 Rheumatoid Factor < 13.0 Cycl Citrul Peptide IgG <16 HESHAM Screen NEGATIVE XR Left shoulder, Left knee and Left Hip 06/17/2023 FINDINGS: Left shoulder: Marked degenerative changes are present in the shoulder at the AC joint and at the inferior glenohumeral humeral joint. Bulky calcifications are present in the supraspinatus tendon. Degenerative changes are noted at the AC joint. No fractures or dislocations. Left hip: Single view pelvis and left hip films show degenerative changes in the visualized lumbosacral spine. Degenerative changes are seen in both hips, with slightly more joint space narrowing superiorly on the left. No fractures, dislocations or bony destructive lesions. Left knee: Marked biconvex departmental degenerative changes are seen with relative sparing of the lateral compartment. There is narrowing of the medial and patellofemoral compartments with sclerosis and osteophytes. No chondrocalcinosis is seen. No significant joint effusion is present. Assessment & Plan Assessment & Plan (1) Frozen shoulder: Code(s): M75.00 - Adhesive capsulitis of unspecified shoulder Category: Medical Qualifiers: Laterality: left Qualified Code(s): M75.02 - Adhesive capsulitis of left shoulder Plan: #Left frozen shoulder Patient needs to go to physical therapy Order re-placed (2) Osteoarthritis of left knee: Code(s): M17.12 - Unilateral primary osteoarthritis, left knee Category: Medical Qualifiers: Osteoarthritis type: primary Qualified Code(s): M17.12 - Unilateral primary osteoarthritis, left knee Plan: #OA left knee S/p steroid injection today Interested in viscosupplementation RTC 3 months for Euflexxa Plan I spent 30 minutes reviewing the record and labs, seeing the patient, discussing the treatment plan and documenting in the medical record ? Orders: Orders AMB Joint Injection/Aspiration 03/16/24 M17.12 - Unilateral primary osteoarthritis, left knee PT Evaluation and Treatment 03/16/24 M75.00 - Adhesive capsulitis of unspecified shoulder Medications: New lidocaine (PF) 10 mg intra-articular ONCE 2 mL 0RF M17.12 - Unilateral primary osteoarthritis, left knee Kenalog (triamcinolone acetonide) 40 mg intra-articular ONCE 1 mL 0RF NS M17.12 - Unilateral primary osteoarthritis, left knee Coding Level of Care Code Est Pt Level 4 (88286) Diagnoses Adhesive capsulitis of left shoulder M75.02 Laterality: left Primary osteoarthritis of left knee M17.12 Osteoarthritis type: primary CPT Codes Coding - 90109 Large joint: 12523 - Large joint ([id number])
== END 2024-03-16 16:32 | disposition home or self-care (01) ==
PROVIDERS: PCP Internal Medicine; Visit Provider Student in an Organized Health Care Education/Training Program
DX: M75.02 Adhesive capsulitis of left shoulder (principal); M17.12 Unilateral primary osteoarthritis, left knee
CPT/HCPCS: 20610; 99214

== ENCOUNTER → 2024-03-16 15:34 | Outpatient (BNVA) | payer MEDICARE, MEDICAID, SELFPAY | PROVIDERS: PCP Internal Medicine; Visit Provider Student in an Organized Health Care Education/Training Program | DX: M75.02 Adhesive capsulitis of left shoulder (principal); M17.12 Unilateral primary osteoarthritis, left knee | CPT/HCPCS: 20610; 99212; J2003; J3300 ==

== ENCOUNTER 2024-04-13 08:42 | Outpatient (REF) | payer MEDICARE, MEDICAID, SELFPAY ==
[2024-04-13 09:03] LABS: MANUAL DIFF FLAG NO
[2024-04-13 09:23] LABS: Basophils Absolute Auto 0.1 X10*3/uL (0.0-0.2); Basophils Percent Auto 0.8 % (0-2); Eosinophils Absolute Auto 0.3 X10*3/uL (0.0-0.4); Eosinophils Percent Auto 2.8 % (0-4); Hematocrit 35.2 % (37.0-47.0); Hemoglobin 11.3 g/dl (12.0-16.0); Imm Gran Abs Auto 0.05 X10*3/uL (0.00-0.03); Imm Gran Pct Auto 0.4 % (0.0-0.4); Lymphocytes Absolute Auto 4.2 X10*3/uL (1.2-4.9); Lymphocytes Percent Auto 37.5 % (20-40); Mean Corpuscular HGB Conc 32.1 g/dl (31.0-35.0); Mean Corpuscular Hemoglobin 26.5 pg (27.0-33.0); Mean Corpuscular Volume 82.6 fL (80.0-98.0); Mean Platelet Volume 10.8 fL (9.4-12.3); Monocytes Absolute Auto 0.7 X10*3/uL (0.1-1.2); Neutrophils Absolute Auto 5.9 x10*3/uL (2.0-8.3); Neutrophils Percent Auto 52.5 % (45-73); Platelet Count 344 X10*3/uL (160-400); Red Blood Count 4.26 X10*6/uL (4.20-5.50); Red Cell Distribution Width 15.3 % (11.0-16.0); White Blood Count 11.2 X10*3/uL (4.8-10.8)
[2024-04-13 09:48] LABS: Estimated Average Glucose 151 mg/dL; Hemoglobin A1C 156.0625 umol/L; Hemoglobin A1c % 6.9 % (<6.0); Total Hemoglobin (HGBA1C) 2980.0421 umol/L
[2024-04-13 10:08] LABS: Alanine Aminotransferase 20 U/L (0-31); Albumin Level 3.6 g/dL (3.5-5.0); Alkaline Phosphatase 152 U/L (39-117); Anion Gap 11 (12-20); Aspartate Amino Transferase 41 U/L (5-31); Bilirubin Total 0.4 mg/dL (0.0-1.0); Blood Urea Nitrogen 11 mg/dL (9-16); Calcium 8.5 mg/dL (8.4-10.2); Carbon Dioxide 29 mmol/L (22-29); Chloride 105 mmol/L (96-108); Cholesterol 122 mg/dL (<200); Estimated Glomerular Filt Rate > 60; Glucose Fasting 123 mg/dL (60-99); HDL Cholesterol 42 mg/dL (>40); LDL Cholesterol Calculated 67 mg/dL (<100); Potassium 3.8 mmol/L (3.3-5.1); Sodium 141 mmol/L (135-145); Total Protein 7.4 g/dL (6.5-8.0); Triglycerides 69 mg/dL (<150)
[2024-04-13 10:29] LABS: Vitamin D 25-OH Total 43.9 ng/mL (>30)
[2024-04-13 10:34] LABS: Folate 15.2 ng/mL (> or = 4.0); Vitamin B12 1114 pg/mL (200-900)
--- OUTSIDE RECORDS SUMMARY | 2024-04-13 11:29 | XMS_ITS | Encounter Summary ---
Author Organization [facility] Address [address] [place] [address] Care Team Providers Care Aligning Inspector Name Role Phone Leroy Jauregui MD Primary Care Provider Leroy Garcia MD Unavailable Unavailable Pratibha Waggoner MD Unavailable Encounter Details Date Type Department Care Team Description 10/21/2023 Orders Only [facility] Thoracic Surgery [place] [address] [facility] [address] [place] [phone] Pratibha Waggoner MD [address] [facility] [place] [address] [place] [address] [id number] Malignant carcinoid tumor of lung (HCC); Pulmonary nodules Social History Tobacco Use Types Packs/Day Years Used Date Smoking Tobacco: Former Smokeless Tobacco: Never Alcohol Use Standard Drinks/Week Comments No 0 (1 standard drink = 0.6 oz pur e alcohol) Sex Assigned at Date Recorded Not on file documented as of this encounter Plan of Treatment Not on file documented as of this encounter Procedures Procedure Name Priority Date/Time Associated Diagnosis Comments CAT SCAN OF CHEST NO CONTRAST Routine 10/18/2023 Malignant carcinoid tumor of lung (HCC) Pulmonary nodules documented in this encounter Results * CAT SCAN OF CHEST NO CONTRAST (10/18/2023) Pratibha Waggoner MD [facility] documented in this encounter Visit Diagnoses Diagnosis 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
--- OUTSIDE RECORDS SUMMARY | 2024-04-13 11:29 | XMS_ITS | Clinical Summary ---
Author Organization [facility] Address [address] [place] [phone] Phone Care Team Providers Care Zigzag Appliquer Name Role Phone Leroy Sanchez MD Primary Care Provider [phone] Allergies Active Allergy Reactions Criticality Noted Date Comments Nitrofurantoin 12/23/2023 Medications Medication Sig Dispensed Refills Start Date End Date Status nystatin (MYCOSTATIN) ointment Apply to affected twice a day for 10 days 05/01/2021 Active alcohol swabs pads, medicated 1 PAD TOPICAL TIA VECES AL D A 03/04/2020 Active amitriptyline (ELAVIL) 25 mg tablet TOME ERICA TABLETA POR V A ORAL AL ACOSTARSE 03/17/2020 Active amoxicillin-clavulan ate (AUGMENTIN) 875-125 mg per tablet 03/29/2020 Active atorvastatin (LIPITOR) 40 mg tablet TOME ERICA TABLETA TODOS LOS D 03/17/2020 Active DULoxetine (CYMBALTA) [address] capsule TAKE 60 MG POR V A ORAL DAILY 03/07/2020 Active FLUoxetine (PROzac) 10 mg capsule TOME ERICA C PSULA TODOS LOS D 03/20/2020 Active blood sugar diagnostic (FreeStyle Lite Strips) test strip 1 Strip 3 times daily. 03/18/2020 Active ibuprofen (ADVIL,MOTRIN) 800 mg tablet PLEASE SEE ATTACHED FOR DETAILED DIRECTIONS 03/21/2020 Active liraglutide (Victoza 2-Zeus) 0.6 mg/0.1 mL (18 mg/3 mL) injection Inject 1.8 mg under the skin 1 (one) time each day. 03/09/2020 Active loratadine (CLARITIN) 10 mg tablet TOME ERICA TABLETA TODOS LOS D CUANDO SEA NECESARIO 03/25/2020 Active LORazepam (ATIVAN) 1 mg tablet TAKE 1 TABLET BY MOUTH AT NIGHT NEEDED AND 1/2 IN THE DAY NEEDED 03/20/2020 Active metFORMIN (GLUCOPHAGE) 500 mg tablet TOME ERICA TABLETA DOS VECES AL D A 03/21/2020 Active metoprolol succinate (TOPROL-XL) 50 mg 24 hr tablet TOME ERICA TABLETA TODOS LOS D 03/25/2020 Active sertraline (ZOLOFT) 100 mg tablet TOME ERICA TABLETA DOS LOS D 03/18/2020 Active valsartan (DIOVAN) 320 mg tablet TAKE 320 MG POR V A ORAL DAILY 03/11/2020 Active predniSONE (DELTASONE) 10 mg tablet 03/29/2020 Active clotrimazole-betamet hasone (LOTRISONE) 1-0.05 % cream Apply topically to affected area twice daily for no more than 10 days 04/24/2019 Active fluticasone propionate (FLOVENT HFA INHL) Active albuterol HFA (PROAIR HFA ; PROVENTIL HFA ; VENTOLIN HFA) 90 mcg/actuation inhaler Inhale 2 Puffs into the lungs every 4 hours as needed for Wheezing for up to 90 days. 08/02/2018 Active montelukast (SINGULAIR) 10 mg tablet Active azithromycin (ZITHROMAX) 250 mg tablet 1 TABLET BY MOUTH Wednesday AND Wednesday09/16/2017 Active pregabalin (LYRICA) 100 mg capsule Take 1 capsule (100 mg total) by mouth 3 (three) times a day. Active fluticasone propionate (FLONASE) 50 mcg/actuation nasal spray Administer 2 sprays into each nostril 1 (one) time each day. Active dexlansoprazole (DEXILANT) [address] capsule Take by mouth. Active FLUoxetine (PROzac) 10 mg tablet Take 1 tablet (10 mg total) by mouth 1 (one) time each day. Active metoprolol tartrate (LOPRESSOR) 50 mg tablet Take 1 tablet (50 mg total) by mouth 1 (one) time each day. Active gabapentin (NEURONTIN) 800 mg tablet Take 1 tablet (800 mg total) by mouth at bedtime. Active oxaprozin (DAYPRO) 600 mg tablet Take 1,200 mg by mouth 1 (one) time each day. Active traMADoL (ULTRAM) 50 mg tablet Take 1 tablet (50 mg total) by mouth every 6 (six) hours if needed. Active LORazepam (ATIVAN) 0.5 mg tablet Take 1 tablet (0.5 mg total) by mouth every 6 (six) hours if needed. Active etodolac (LODINE) 400 mg tablet Take 1 tablet (400 mg total) by mouth 2 (two) times a day. Active metFORMIN XR (GLUCOPHAGE-XR) 750 mg 24 hr tablet Take 1 tablet (750 mg total) by mouth 2 (two) times a day. 500mg - Oral Active aspirin 81 mg EC tablet Take 1 tablet (81 mg total) by mouth 1 (one) time each day. Active hydroCHLOROthiazide (HYDRODIURIL) 25 mg tablet Take 1 tablet (25 mg total) by mouth 1 (one) time each day. Active losartan (COZAAR) 25 mg tablet Take 1 tablet (25 mg total) by mouth 1 (one) time each day. 100mg Active simvastatin (ZOCOR) 40 mg tablet Take 1 tablet (40 mg total) by mouth at bedtime. 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 Clinically she is doing well we followed up with a short interval CT due to OA 6 mm nodule noted on her previous CT scan that has now decreased in size and appears less prominent. There is no evidence for recurrent or new disease on her imaging. She does report pain and is being seen in a pain clinic at [place]. Plan from our standpoint will be for a 1 year follow-up CT scan of the chest and a visit in this office after that. All questions were answered. This visit was done through the video chair spring assembler services. Chronic obstructive pulmonary disease 09/29/2016 Obstructive sleep apnea syndrome 09/29/2016 Overview (12/23/2023): [facility] Home Polysomnogram: Date 05/17/2017; AHI 6, Unclassified apneas 0; Obstructive apneas 0; Central apneas 0; Mixed apneas 0; hypopneas 37; average oxygen saturation 94% (lowest 82% without saturations <88% for 5% or more of study) - Obstructive Sleep Apnea - mild; all hypopneas; no sleep related hypoventilation by 2018 home polysomnogram. 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); Pulmonary nodule 01/31/2024 Telephone Lung Screening Program - [place] [facility] [address] [place] [phone] Ally Villatoro MA 01/26/2024 1:19 PM EST - 01/26/2024 11:59 PM EST Hospital Encounter [facility] CT Scan [address] [place] [id number] Malignant carcinoid tumor of lung (CMS/HCC) Discharge Disposition: Home or Self Care from Last 3 Months Surgical History Surgery Date Site/Laterality Comments TUBAL LIGATION PROCEDURE: HISTORICAL TUBAL LIGATION OTHER SURGICAL HISTORY 2017 PROCEDURE: LUNG BIOPSY THROUGH CHEST WALL Medical History Medical History Date Comments Hypertension 04/04/2012 DX:Hypertension Historical Medical DX 04/04/2012 DX:Hyperli pidemia LDL goal < 70 DM2 (diabetes mellitus, type 2) ([facility]) 04/04/2012 DX:DM2 (diabetes mellitus, t ype 2) ([facility]) Lumbar disc disease 04/04/2012 DX:Lumbar di sc disease Depression 04/04/2012 DX:Depression Anxiety 04/04/2012 DX:Anxiety Obesity 04/04/2012 DX:Obesity LBBB (left bundle branch block) 04/04/2012 DX:LBBB (left bundle branch block) Emphysema lung ([facility]) DX:Emph ysema lung ([facility]) Fibromyalgia DX:Fibromyalgia Arthritis DX:Arthritis Family History Medical History Relation Name Comments Coronary artery disease Other fami ly members, no early cad Relation Name Status Comments Other Social History Tobacco Use Types Packs/Day Years Used Date Smoking Tobacco: Former Smokeless Tobacco: Never Tobacco Cessation:Counseling Given: Not Answered Alcohol Use Standard Drinks/Week Comments No 0 (1 standard drink = 0.6 oz pur e alcohol) Sex and Gender Information Value Date Recorded Sex Assigned at Not on file Gender Identity Not on file Sexual Orientation Not on file Job Start Date Occupation Industry Not on file Not on file Not on file Obstetrics History Last Filed Vital Signs Vital Sign Reading Time Taken Comments Blood Pressure 145/77 02/21/2024 10:39 AM EST Pulse 80 02/21/2024 10:39 AM EST Temperature 36.7 ??C (98.1 ??F) 02/21/2024 10:[address] Respiratory Rate 18 02/21/2024 10:39 AM EST Oxygen Saturation 97% 02/21/2024 10:39 AM EST Inhaled Oxygen Concentration - - Weight 100 kg (220 lb 11.2 oz) 02/21/2024 10:39 AM EST Height 160 cm (5' 3 ) 02/21/2024 10:39 AM EST Body Mass Index 39.1 02/21/2024 10:39 AM EST Plan of Treatment Health Maintenance Due Date Last Done Comments Diabetes: Annual GFR (Glomerular Filtration Rate) 1955 Diabetes: Annual Foot Exam 07/09/1965 Diabetes: Annual Retina Eye Exam 07/09/1965 Cholesterol Screening (Lipid Panel) 02/21/2022 Colorectal Cancer Screening: Colonoscopy 02/21/2022 Depression Screening 02/21/2022 Falls Risk Assessment 02/21/2022 Hepatitis C Screening 02/21/2022 Medicare Annual Wellness Visit 02/21/2022 Osteoporosis Screening (Bone Density Screening) 02/21/2022 Social Influencers of Health Screening 02/21/2022 Diabetes: Annual Urine Albumin-Creatinine Ratio (uACR) 02/28/2022 Diabetes: Blood Sugar Control Test (HGBA1C) 02/28/2022 Hypertension/CHF/CAD Annual BMP Blood Test 02/28/2022 Influenza Vaccine (#1) 2023 , 02/14/2021, 01/11/2020, Additional history exists DTaP,Tdap,and Td Vaccines (3 - Td or Tdap) 05/11/2025 05/11/2015, 04/16/2015 Breast Cancer Screening 06/15/2025 06/16/19, 06/11/2022, 06/02/2021, Additional history exists Pneumococcal Vaccine: 65+ Years Completed 09/19/2021, 01/11/2020 Zoster Vaccines Completed 02/18/2023, 09/19/2021 RSV Immunization Patients 60+ Years Old Completed 03/26/2023 COVID-19 Vaccine Completed 11/11/2023, 09/2022, 12/17/2021, Additional history exists HIB Vaccines Aged Out No longer eligi ble based on patient's age to complete this topic HPV Vaccines Aged Out No longer eligi ble based on patient's age to complete this topic Hepatitis A Vaccines Aged Out No long er eligible based on patient's age to complete this topic Hepatitis B Vaccines Aged Out No long er eligible based on patient's age to complete this topic IPV Vaccines Aged Out No longer eligi ble based on patient's age to complete this topic MMR Vaccines Aged Out No longer eligi ble based on patient's age to complete this topic Meningococcal ACWY Vaccine Aged Out N o longer eligible based on patient's age to complete this topic RSV Immunization Patients Under 20 months Aged Out No longer eligible based on patient's age to complete this topic Varicella Vaccines Aged Out No longer eligible based on patient's age to complete this topic Procedures Procedure Name Priority Date/Time Associated Diagnosis Comments CT CHEST WO CONTRAST Routine 01/26/2024 1:44 PM EST Malignant carcinoid tumor of lung (CMS/HCC) CHRIS SCREENING DIGITAL Routine 06/16/2023 11:59 AM EDT Encounter for screening mammogram for malignant neoplasm of breast from Last 3 Months or Most Recently Relevant to Health Maintenance Results * CT Chest wo Contrast (01/26/2024 1:44 PM EST) Anatomical Region Laterality Modality Body Computed Tomogra phy 01/27/2024 9:30 AM EST Impressions 01/27/2024 9:39 AM EST 1. ??No CT evidence of recurrent disease. 2. ??Stable appearance of small pulmonary nodules that can be followed on subsequent exams. -------- FINAL REPORT -------- Dictated By: Evangelista Monreal Dictated Date: 01/27/2024 09:30 ET Assigned Physician: Evangelista Monreal Reviewed and Electronically Signed By: Evangelista Monreal Signed Date: 01/27/2024 09:39 ET Workstation ID: [id number] Transcribed By: Self Edit Transcribed Date: 01/27/2024 09:30 ET Narrative 01/27/2024 9:[address] chest without contrast HISTORY: Carcinoid tumor of the lung COMPARISON: CT chest October 2023. TECHNIQUE: Noncontrast CT was performed of the chest. ??Reformatted images were provided. DOSE: CTDIvol: 17.4mGy. ??Total exam DLP: 532.9mGy-cm FINDINGS: Again noted are surgical changes of prior right middle lobectomy. ??A previously noted 6 mm nodule in the periphery of the right upper lobe appears less prominent measuring 4 mm on this exam. ??Small nodule at the posterior right lung base (series 3 image 185) appears stable. ??Small nodule in the periphery of the posterior left upper lobe (image 77) also appears stable. There is regions of peripheral reticulation noted that may represent a component of fibrosis. ??No consolidation or effusion. Mediastinum appears normal. ??No abnormal lymphadenopathy. ??Heart size is normal without effusion. ??Atherosclerotic disease of the aorta without aneurysm. Chest wall appears within normal limits. ??No abnormal lymphadenopathy is noted. Limited views of the upper abdomen appear within normal limits. Degenerative changes of the spine. Procedure Note Evangelista Monreal MD - 01/27/2024 CT chest without contrast HISTORY: Carcinoid tumor of the lung COMPARISON: CT chest October 2023. TECHNIQUE: Noncontrast CT was performed of the chest. Reformatted imageswere provided. DOSE: CTDIvol: 17.4mGy. Total exam DLP: 532.9mGy-cm FINDINGS: Again noted are surgical changes of prior right middle lobectomy. Apreviously noted 6 mm nodule in the periphery of the right upper lobeappears less prominent measuring 4 mm on this exam. Small nodule at theposterior right lung base (series 3 image 185) appears stable. Smallnodule in the periphery of the posterior left upper lobe (image 77) alsoappears stable. There is regions of peripheral reticulation noted that may represent acomponent of fibrosis. No consolidation or effusion. Mediastinum appears normal. No abnormal lymphadenopathy. Heart size isnormal without effusion. Atherosclerotic disease of the aorta withoutaneurysm. Chest wall appears within normal limits. No abnormal lymphadenopathy isnoted. Limited views of the upper abdomen appear within normal limits. Degenerative changes of the spine. IMPRESSION: 1. No CT evidence of recurrent disease. 2. Stable appearance of small pulmonary nodules that can be followed onsubsequent exams. -------- FINAL REPORT -------- Dictated By: Evangelista Monreal Dictated Date: 01/27/2024 09:30 ET Assigned Physician: Evangelista Mnoreal Reviewed and Electronically Signed By: Evangelista Monreal Signed Date: 01/27/2024 09:39 ET Workstation ID: [id number] Transcribed By: Self Edit Transcribed Date: 01/27/2024 09:30 ET Pratibha Waggoner MD IMG CT PROCEDURES * CHRIS SCREENING DIGITAL (06/16/2023 11:59 AM EDT) Anatomical Region Laterality Modality Mammography 06/16/2023 10:3 6 AM EDT Narrative 06/16/2023 11:59 AM EDT [facility] Diagnostic Imaging Department [address] [place] [phone] Patient: ??PATO SAHU I ?/Age/Sex: 1955 - 67 - F Unit#: ??[id number] ? Location/Status: ??SPDIMAM/REG CLI ? Mnemonic/Ordering Site: ??DIGSC/SPMAM Ordering Physician: ??LEROY SANCHEZ MD [facility] Screening Digital - 06/16/23 - 1106 Report Status:Signed EXAM: [facility] Screening Digital EXAM DATE AND TIME: 06/16/2023 11:07 AM HISTORY: ??Annual screening COMPARISON: ??Multiple exams dating back to 2016 TECHNIQUE: Bilateral digital breast tomosynthesis was performed in the CC and MLO projections. Computer aided detection with Kanari 3D 3.1 was employed. TISSUE DENSITY: b. There are scattered areas of fibroglandular density. FINDINGS: No suspicious masses, grouped microcalcifications, or areas of architectural distortion are seen. The skin and vascularity are unremarkable. IMPRESSION: Stable mammographic appearance of the breasts. ??No evidence of malignancy is seen. A negative mammogram in the presence of a clinically suspicious palpable abnormality does not preclude the possibility of malignancy or alter the indications for biopsy. BI-RADS: ??Category 1: Negative RECOMMENDATION(S): 1: Routine screening mammogram BILATERAL in 1 year. 3341F, 7025F Dictating Physician: ??WALLY MOELLER MD Electronically Signed by: ??WALLY MOELLER MD Dic Date/Time: ??06/16/23 1158 Sign date/Time: ??06/16/23 1159 Procedure Note Wally Moeller MD - 11/01/2023 [facility] Diagnostic Imaging Department [address] [place] [id number] Patient: PATO SAHU Nikki /Age/Sex: 1955 - 67 - F Unit#: [id number] [facility]Ordering Site: [facility] Ordering Physician: LEROY SANCHEZ MD [facility] Screening Digital - 06/16/23 - 1106 Report Status:Signed EXAM: [facility] Screening Digital EXAM DATE AND TIME: 06/16/2023 11:07 AM HISTORY: Annual screening COMPARISON: Multiple exams dating back to 2016 TECHNIQUE: Bilateral digital breast tomosynthesis was performed in the CCand MLO projections. Computer aided detection with Kanari 3D 3.1was employed. TISSUE DENSITY: b. There are scattered areas of fibroglandular density. FINDINGS: No suspicious masses, grouped microcalcifications, or areas ofarchitectural distortion are seen. The skin and vascularity are unremarkable. IMPRESSION: Stable mammographic appearance of the breasts. No evidence of malignancyis seen. A negative mammogram in the presence of a clinically suspicious palpable abnormality does not preclude the possibility of malignancy or alter the indications for biopsy. BI-RADS: Category 1: Negative RECOMMENDATION(S): 1: Routine screening mammogram BILATERAL in 1 year. 3341F, 7025F Dictating Physician: WALLY MOELLER MD Electronically Signed by: WALLY MOELLER MD Dic Date/Time: 06/16/23 1158 Sign date/Time: 06/16/23 1159 Leroy Sanchez MD IMG BI PROCEDURES from Last 3 Months or Most Recently Relevant to Health Maintenance Care Teams Zigzag Appliquer Relationship Specialty Start Date End Date Leroy Sanchez MD [address] RAN Suarez PCP - General Internal Medicine 11/27/11
--- OUTSIDE RECORDS SUMMARY | 2024-04-13 11:29 | XMS_ITS | Encounter Summary ---
Author Organization [facility] Address [address] [place] [address] Care Team Providers Care Director Property Name Role Phone Consuelo Plaza MD Primary Care Provider Leroy Cevallos MD Primary Care Provider Leroy Garcia MD Primary Care Provider Leroy Garcia MD Unavailable Unavailable Pratibha Waggoner MD Unavailable Reason for Visit * Reason Comments E-prescribe Rx Request Encounter Details Date Type Department Care Team Description 09/14/2017 Refill Pulmonology - [address] [place] [phone] Angelo Hoffmann MD E-prescribe Rx Request Social History Tobacco Use Types Packs/Day Years Used Date Smoking Tobacco: Never Smokeless Tobacco: Never Alcohol Use Standard Drinks/Week Comments No 0 (1 standard drink = 0.6 oz pur e alcohol) Sex Assigned at Date Recorded Not on file documented as of this encounter Miscellaneous Notes * Telephone Encounter - Annie Persaud - 09/16/2017 7:59 AM EDT Patient would like script to be: E-PRESCRIBED/FAXED TO PHARMACY WHEN WAS THE PATIENT'S LAST APPOINTMENT WITH THE PRESCRIBING PROVIDER? 08/24/17 Does patient have an upcoming appointment? Yes (THE MEDICATION REQUESTED IS ON THE MED LIST ABOVE) All of the medications requested were on the CURRENT MEDS list Did you check the Pharmacy information above?: YES Patient wants: 90 -day supply Is this a mail order prescription request ? NO Patients current insurance carrier is: Payor: [employer] FFS / Plan: [employer] / Product Type: MEDICAID RISK documented in this encounter Plan of Treatment Not on file documented as of this encounter Visit Diagnoses Not on filedocumented in this encounter Care Teams Director Property Relationship Specialty Start Date End Date Consuelo Plaza MD PCP - General Internal Medicine 05/18/17 04/20/18 Leroy Jauregui MD PCP - General Internal Medicine 04/21/18 11/10/21 Leroy Jauregui MD PCP - General Internal Medicine 11/11/21 Leroy Jauregui MD Internal Medicine 11/11/21 Pratibha Waggoner MD Lung Cancer Body Builder Apprentice 12/28/22 documented as of this encounter
--- OUTSIDE RECORDS SUMMARY | 2024-04-13 11:29 | XMS_ITS | Encounter Summary ---
Author Organization [facility] Address [address] [place] [address] Care Team Providers Care Recycling Program Manager Name Role Phone Leroy Jauregui MD Primary Care Provider Consuelo Schaefer MD Primary Care Provider Leroy Cevallos MD Primary Care Provider Leroy Garcia MD Primary Care Provider Leroy Garcia MD Unavailable Unavailable Pratibha Waggoner MD Unavailable Encounter Details Date Type Department Care Team Description 03/23/2017 Transfer Records Medical Records [address] [place] [id number] Abstract, Provider Social History Tobacco Use Types Packs/Day Years [...] on filedocumented in this encounter Care Teams Recycling Program Manager Relationship Specialty Start Date End Date Leroy Jauregui MD PCP - General Internal Medicine 11/27/11 05/17/17 Consuelo Plaza MD PCP - General Internal Medicine 05/18/17 04/20/18 Leroy Jauregui MD PCP - General Internal Medicine 04/21/18 11/10/21 Leroy Jauregui MD PCP - General Internal Medicine 11/11/21 Leroy Jauregui MD Internal Medicine 11/11/21 Pratibha Waggoner MD Lung Cancer Director Of Valuation 12/28/22 documented as of this encounter
--- OUTSIDE RECORDS SUMMARY | 2024-04-13 11:29 | XMS_ITS | Encounter Summary ---
Author Organization [facility] Address [address] [place] [address] Care Team Providers Care Box Covering Machine Operator Name Role Phone Consuelo Plaza MD Primary Care Provider Leroy Cevallos MD Primary Care Provider Leroy Garcia MD Primary Care Provider Leroy Garcia MD Unavailable Unavailable Pratibha Waggoner MD Unavailable Encounter Details Date Type Department Care Team Description 05/20/2017 Orders Only Medical Records [address] [place] [address] Swetha Aaron NP Social History Tobacco Use Types Packs/Day Years Used Date Smoking Tobacco: Never Smokeless Tobacco: Never Alcohol Use Standard Drinks/Week Comments No 0 (1 standard drink = 0.6 oz pur e alcohol) Sex Assigned at Date Recorded Not on file documented as of this encounter Plan of Treatment Not on file documented as of this encounter Procedures Procedure Name Priority Date/Time Associated Diagnosis Comments OUTSIDE SLEEP STUDY Routine 05/17/2017 documented in this encounter Results * OUTSIDE SLEEP STUDY (05/17/2017) Swetha Aaron NP PULMONOLOGY documented in this encounter Visit Diagnoses Not on filedocumented in this encounter Care Teams Box Covering Machine Operator Relationship Specialty Start Date End Date Consuelo Plaza MD PCP - General Internal Medicine 05/18/17 04/20/18 Leroy Jauregui MD PCP - General Internal Medicine 04/21/18 11/10/21 Leroy Jauregui MD PCP - General Internal Medicine 11/11/21 Leroy Jauregui MD Internal Medicine 11/11/21 Pratibha Waggoner MD Lung Cancer Resource Technician 12/28/22 documented as of this encounter
--- OUTSIDE RECORDS SUMMARY | 2024-04-13 11:29 | XMS_ITS | Encounter Summary ---
Author Organization [facility] Address [address] [place] [address] Care Team Providers Care Filter Plant Supervisor Name Role Phone Leroy Jauregui MD Primary Care Provider Consuelo Schaefer MD Primary Care Provider Leroy Cevallos MD Primary Care Provider Leroy Garcia MD Primary Care Provider Leroy Garcia MD Unavailable Unavailable Pratibha Waggoner MD Unavailable Encounter Details Date Type Department Care Team Description 04/26/2017 Car Whacker Report Medical Records [address] [place] [address] Pratibha Waggoner MD [address] [place] [id number] Social History Tobacco Use Types Packs/Day Years [...] on filedocumented in this encounter Care Teams Filter Plant Supervisor Relationship Specialty Start Date End Date Leroy Jauregui MD PCP - General Internal Medicine 11/27/11 05/17/17 Consuelo Plaza MD PCP - General Internal Medicine 05/18/17 04/20/18 Leroy Jauregui MD PCP - General Internal Medicine 04/21/18 11/10/21 Leroy Jauregui MD PCP - General Internal Medicine 11/11/21 Leroy Jauregui MD Internal Medicine 11/11/21 Pratibha Waggoner MD Lung Cancer Elementary Assistant Principal 12/28/22 documented as of this encounter
--- OUTSIDE RECORDS SUMMARY | 2024-04-13 11:29 | XMS_ITS | Encounter Summary ---
Author Organization [facility] Address [address] [place] [address] Care Team Providers Care Aircraft Detail Draftsperson Name Role Phone Leroy Jauregui MD Primary Care Provider Consuelo Schaefer MD Primary Care Provider Leroy Cevallos MD Primary Care Provider Leroy Garcia MD Primary Care Provider Leroy Garcia MD Unavailable Unavailable Pratibha Waggoner MD Unavailable Encounter Details Date Type Department Care Team Description 08/03/2012 Transfer Records Medical Records [address] [place] [id number] Abstract, Provider Social History Tobacco Use Types Packs/Day Years Used Date Smoking Tobacco: Never Alcohol Use Standard Drinks/Week Comments Not Asked 0 (1 standard drink = 0.6 oz pur e alcohol) Sex Assigned at Date Recorded Not on file documented as of this encounter Plan of Treatment Not on file documented as of this encounter Visit Diagnoses Not on filedocumented in this encounter Care Teams Aircraft Detail Draftsperson Relationship Specialty Start Date End Date Leroy Jauregui MD PCP - General Internal Medicine 11/27/11 05/17/17 Consuelo Plaza MD PCP - General Internal Medicine 05/18/17 04/20/18 Leroy Jauregui MD PCP - General Internal Medicine 04/21/18 11/10/21 Leroy Jauregui MD PCP - General Internal Medicine 11/11/21 Leroy Jauregui MD Internal Medicine 11/11/21 Pratibha Waggoner MD Lung Cancer Neonatal Surgeon 12/28/22 documented as of this encounter
--- OUTSIDE RECORDS SUMMARY | 2024-04-13 11:29 | XMS_ITS | Data Portability ---
Author Organization [place] - [facility] Address [address] [place] [address] Care Team Providers Care Linen Keeper Name Role Phone SOFIA SANCHEZ Primary Care Provider Assessment Encounter Date Assessment Date Assessment LastModified by Organization Details LastModified Time 01/31/2020 01/31/2020 Overview/History : 64yoF new to pmhx asthma, lung ca sp nodule excision, CAD, HTN, HDL is seen today for a COVID test. The patient was around her granddaughter last week who developed symptoms and tested positive for COVID 2 days ago. PAtient denies any symptoms Exam: Patient is slightly hypotensive, well appearing Heart and lung sounds clear Abdomen soft and non tender No LE edema DDx considered, but not limited to: COVID Work up/Results: COVID 19 test pending Plan/Discussion: Patient is slightly hypotensive, but asymptomatic, non toxic appearing seen today for a COVID test. Patient is on 3 anti hypertensives. She will begin taking her BP daily and follow up with her PCP. Patient will continue to isolate. Given precautions to seek immediate medical care if she develops a fever, cough, chest pain, sob, or feels she is going to pass out. Proper Personal Protective Equipment (PPE), including gloves, eye protection, N95 mask, gown, were donned and doffed appropriately and all equipment cleaned using approved technique with germicidal disposable wipes prior to and after care of this patient according to [facility]'s infection prevention protocols. Time On Scene with Patient: 00:28:11 [email or web address] Not available 01/31/2020 17:03:32 03/25/2020 03/25/2020 History and overview 64yoF known to and known to this provider pmhx HTN, HDL, CVA, and DM is seen today for a cough and covid exposure. Patient was with her grandsons 4 who later developed symptoms and yesterday tested positive for COVID. Patient reports cough and slight decrease in appetite. No fever, cp or sob. Exam VSS patient well appearing heart and lung sounds clear abdomen soft and non tender no LE edema noted Ddx COVID doubt pna as patient is afebrile with normal lung sounds influenza Work up and results covid test pending Assessment and plan Patient is hemodynamically stable non toxic appearing seen today for a covid test as she had a positive exposure and has now developed a cough. Patient is not demonstrating any signs of pna at this time. Patient will continue to isolate. Precautions given that if she evelops a fever, worsened cough, cp or sob. to again seek immediate care. She verbalized understanding and was agreeable. Granddaughter was present throughout entire encounter and helper interpret for the patient DHMT and I wore [id number], gowns, gloves and eye protection throughout entire visit Time On Scene with Patient: 01:00:23 [email or web address] Not available 03/25/2020 17:24:30 03/11/2021 03/11/2021 Overview/History : nasal congestion and sneezing x 3 days with COVID exposure 7 days ago. Exam: established pt with DH but new to this pt Non-toxic afebrile 65 yof in NAD. Resp unlabored, lungs clear, CV:RRR. Abd soft non-distended non-tender. BS normal. audible nasal congestion with clear rhinorrhea. DDx considered, but not limited to: COVID-19 Viral URI seasonal allergies Work up/Results: hpi and PE suggests viral uri Rapid COVID test negative Plan/Discussion: OTC meds prn symptoms. F/u PRN worsening symptoms. In order to obtain further information and compare any laboratory results/values, I have accessed old patient records. This information was pertinent in my medical decision making today. Time On Scene with Patient: 00:27:22 Proper Personal Protective Equipment (PPE), including gloves, eye protection, N95 mask, gown, were donned and doffed appropriately and all equipment cleaned using approved technique with germicidal disposable wipes prior to and after care of this patient according to [facility]'s infection prevention protocols. [email or web address] Not available 03/11/2021 13:19:16 04/17/2021 04/17/2021 Overview/History : 65 yo f with a PMH of anxiety/depression , DM, HLC, HTN and stroke has had a cough x 2 days with frontal sinus pain. has been sick with similar symptoms. Taking Robitussin DM and provider prescribed Augmentin and prednisone 2 days ago Telehelth visit. Exam: VS T 97.7 HR 78 BP 118/64 RR 16 SpO2 98% RA Constitutional: Awake and alert. Appearance is normal. NAD and is not toxic appearing. Ambulating normally. ENMT: Ears: No hearing loss, canals clear. TM landmarks clear. Nose: Nares are patent no edema, mild frontal sinus pain and erythematous nasal mucosa. Oral cavity: moist mucous membrane. Pharynx: No erythema, no exudate, no tenderness, tonsil not enlarged. Lymph: No LAD Pulm: LS CTA no rales, crackles or ronchi. CV: RRR, normal s1 and s2. no murmurs. Psych: Calm and Cooperative. DDx considered, but not limited to: COVID-19, viral illness, bacterial sinus infection, Work up/Results: HPI and PE are consistent with a viral illness. She was placed on antibiotics by her PCP but is unsure what she is being treated for but did report her current symptoms during her telehealth visit. Given the prevalence of COVID-19 will perform at rapid COVID-19 on scene and send a PCR if warranted. Low suspicion for a bacterial sinus infection given PE, the low acuity of symptoms and how well appearing the patient is. She is on antibiotics that would address a bacterial infection if present. Plan/Discussion: Reviewed results with the patient. Advised patient regarding CDC quarantine recommendations. Advised patient of new Rx fluticasone nasal spray. Advised if any new or worsening of symptoms contact DM for re-evaluation or be evaluated in the ER. Proper Personal Protective Equipment (PPE), including gloves, eye protection, N95 mask, gown, were donned and doffed appropriately and all equipment cleaned using approved technique with germicidal disposable wipes prior to and after care of this patient [facility]. Time On Scene with Patient: 00:23:01 [email or web address] Not available 04/20/2021 16:17:01 Plan of Treatment Reminders Order Date Submit Date Provider Last Modified By Organization Details Last Modified Time Details Appointments None recorded. Lab SARS CoV 2 RNA (COVID-19), QL, donor technician-PCR, respiratory specimen 2019 020 [email or web address] [facility], [address] [place], [address], 1 17:01:51 SARS CoV 2 RNA (COVID-19), QL, donor technician-PCR, respiratory specimen 2020 021 [email or web address] [facility], [address] [place], [address], 15:59:29 rapid SARS CoV 2 Ag, QL IA, respiratory specimen 2020 021 [email or web address] [facility], [address] [place], [address], 13:19:33 rapid SARS CoV 2 Ag, QL IA, respiratory specimen 2021 022 [email or web address] [facility], [address] [place], [address], 2 20:26:57 Referral None recorded. Procedures None recorded. Surgeries None recorded. Imaging None recorded. Medication Orders fluticasone propionate 50 mcg/actuati on nasal spray,suspe nsion 2021 022 KAUKAUNA [id number], [address] [facility], [place], [address], 2 20:27:06 Patient TargetsNo targets recorded. Patient Instructions Encounter Date Encounter Id Patient Instructions Last Modified By Organization Details Last Modified Time 01/31/2020 [id number] YOU WERE BOTH TESTED TODAY FOR COVID WE WILL CALL WITH THE RESULTS CONTINUE TO ISOLATE PLEASE AGAIN SEEK MEDICAL CARE IF YOU DEVELOP A FEVER, CHEST PAIN , SHORTNESS OF BREATHE OR FEEL YOU ARE GOING TO PASS OUT I WOULD BUY A BLOOD PRESSURE MACHINE AND CHECK YOUR BLOOD RPESSURE DAILY FOLLOW UP WITH YOUR PCP YOU MAY NEED TO BE TAKEN OFF ONE OF YOUR ANTI HYPERTENSIVE MEDICATIONS Thank you for your visit with [facility] today. We cannot always find the exact cause of your symptoms during your initial visit. Please follow up with your primary care provider or specialist to be rechecked or seek medical attention if your symptoms do not go away or get worse. If you develop any new or worsening symptoms and need after hours care, please go to nearest ER and/or call 911. If you have additional concerns or develop a change in your condition between 8am-10pm, please [facility] at [phone] to help navigate your care. I [email or web address] Not available 01/31/2020 13:52:04 03/11/2021 [id number] Viral Illness Discharge Instructions BASIC INFORMATION A viral infection can range anywhere between a common cold and influenza. Most viruses will respond to a combination of time and supportive care. Viruses are eliminated by the bodies immune system and do not respond to antibiotics. Viruses can cause many different symptoms including runny stuffy nose, sore throat, headache, fever, body aches, cough, nausea, vomiting,diarrhea. Most of the viral illnesses are spread by hand to face contact, and the rest are spread through sneezing and coughing which releases virus into the air. Over the counter medications can help to relieve annoying symptoms. Occasionally having a virus may cause a secondary bacterial infection such as ear infections, pneumonia, sinusitis. INSTRUCTIONS Keeping your body as healthy as possible will help to limit your illness. Get plenty of rest Drink lots of fluids (water, herbal tea, gatorade) Reduce your risk of getting or giving a cold by avoiding touching your face with your hands. When you cough and sneeze cover your mouth/nose by placing your elbow or upper arm over the area rather than using your hand. Use a teaspoon of honey(avoid organic honey in infants and small children < 1 year) at bedtime to soothe your throat and ease cough. Sleep with head of bed elevated to promote drainage of secretions. Hot showers and humidifiers can help to loosen secretions. Tylenol over the counter can be helpful for aches and fever. Suck on hard, sugar-free candy during the day to keep the throat moist. MEDICATIONS Over the counter remedies are not recommended for young children, but can help relieve symptoms temporarily in adults. In general it is better to take only the medication you need rather than using combination products that contain ingredients that are unnecessary and may cause side effects. 1. Antihistamines (Benadryl, Chlor-Trimeton, Zyrtec, Claritin, Mayra) reduce secretions, but can cause drowsiness and sedation, do not drink alcohol or drive while taking these medications. 2. Decongestants (Phenylephrine, Sudafed) can help to shrink swollen nasal passages and dry secretions, but may cause palpitations, anxiety,and are not safe for people with High blood pressure or heart arrhythmias. 3. Topical Decongestants (Afrin/Byron-synephr ine) can be very helpful for acute relief of nasal swelling and runny nose, HOWEVER they should not be used regularly for more than 3 days as they will cause rebound congestion if over-used. 4. Cough aids generally contain DM( Dextromethorphan) which is a cough suppressant and Guaifenesin which is an expectorant. While the DM portion can be helpful for suppressing the cough, guaifenesin, particularly as dosed in Mucinex like products has minimal effect and may cause nausea. Viral symptoms usually last between 5-10 days, it is not uncommon to have a mild cough for up to 6 weeks afterward. If you have been diagnosed with influenza you should minimize your contact with others. You may return to work/school after 24 hours of being fever free without medication (usually 5-10 days). FOLLOW UP if your symptoms are not improving in 7-10 days If you have severe ear pain, sinus pain, cough productive large amounts of mucus, wheezing. You have underlying medical problems that may become worse as a result of your viral illness (asthma, diabetes, COPD) and need to follow up to ensure you are improving. SEEK CARE IMMEDIATELY IF 1 Severe headache unresponsive to Tylenol or severe neck stiffness 2. Confusion 3. Severe chest pain 4. Difficulty breathing 5. Persistent vomiting 6. Cough productive large amounts of sputum or blood 7. Inability to keep liquids down 8. Fever unresponsive to medication over 102 If you develop any new or worsening symptoms and need after hours care, please go to nearest ER and/or call 911. If you have additional concerns or develop a change in your condition between 8am-10pm, please call [facility] at [phone] to help navigate your care. [email or web address] Not available 03/11/2021 13:19:32 04/17/2021 [id number] Viral Illness Discharge Instructions BASIC INFORMATION A viral infection can range anywhere between a common cold and influenza. Most viruses will respond to a combination of time and supportive care. Viruses are eliminated by the bodies immune system and do not respond to antibiotics. Viruses can cause many different symptoms including runny stuffy nose, sore throat, headache, fever, body aches, cough, nausea, vomiting,diarrhea. Most of the viral illnesses are spread by hand to face contact, and the rest are spread through sneezing and coughing which releases virus into the air. Over the counter medications can help to relieve annoying symptoms. Occasionally having a virus may cause a secondary bacterial infection such as ear infections, pneumonia, sinusitis. INSTRUCTIONS Keeping your body as healthy as possible will help to limit your illness. Get plenty of rest Drink lots of fluids (water, herbal tea, gatorade) Reduce your risk of getting or giving a cold by avoiding touching your face with your hands. When you cough and sneeze cover your mouth/nose by placing your elbow or upper arm over the area rather than using your hand. Use a teaspoon of honey(avoid organic honey in infants and small children < 1 year) at bedtime to soothe your throat and ease cough. Sleep with head of bed elevated to promote drainage of secretions. Hot showers and humidifiers can help to loosen secretions. Tylenol over the counter can be helpful for aches and fever. Suck on hard, sugar-free candy during the day to keep the throat moist. MEDICATIONS Over the counter remedies are not recommended for young children, but can help relieve symptoms temporarily in adults. In general it is better to take only the medication you need rather than using combination products that contain ingredients that are unnecessary and may cause side effects. 1. Antihistamines (Benadryl, Chlor-Trimeton, Zyrtec, Claritin, Mayra) reduce secretions, but can cause drowsiness and sedation, do not drink alcohol or drive while taking these medications. 2. Decongestants (Phenylephrine, Sudafed) can help to shrink swollen nasal passages and dry secretions, but may cause palpitations, anxiety,and are not safe for people with High blood pressure or heart arrhythmias. 3. Topical Decongestants (Afrin/Byron-synephr ine) can be very helpful for acute relief of nasal swelling and runny nose, HOWEVER they should not be used regularly for more than 3 days as they will cause rebound congestion if over-used. 4. Cough aids generally contain DM( Dextromethorphan) which is a cough suppressant and Guaifenesin which is an expectorant. While the DM portion can be helpful for suppressing the cough, guaifenesin, particularly as dosed in Mucinex like products has minimal effect and may cause nausea. 5. Tamiflu an anti-viral agent may be prescribed if you are diagnosed with influenza. Viral symptoms usually last between 5-10 days, it is not uncommon to have a mild cough for up to 6 weeks afterward. If you have been diagnosed with influenza you should minimize your contact with others. You may return to work/school after 24 hours of being fever free without medication (usually 5-10 days). FOLLOW UP if your symptoms are not improving in 7-10 days If you have severe ear pain, sinus pain, cough productive large amounts of mucus, wheezing. You have underlying medical problems that may become worse as a result of your viral illness (asthma, diabetes, COPD) and need to follow up to ensure you are improving. SEEK CARE IMMEDIATELY IF 1 Severe headache unresponsive to Tylenol or severe neck stiffness 2. Confusion 3. Severe chest pain 4. Difficulty breathing 5. Persistent vomiting 6. Cough productive large amounts of sputum or blood 7. Inability to keep liquids down 8. Fever unresponsive to medication over 102 If you develop any new or worsening symptoms and need after hours care, please go to nearest ER and/or call 911. If you have additional concerns or develop a change in your condition between 8am-10pm, please call [facility] at [phone] to help navigate your care. [email or web address] Not available 04/17/2021 20:29:08 Reason for Referral None Reported. Results Created Date Observation Date Name Description Value Unit Range Abnormal Flag Note LastModifiedBy Organization Detail LastModifiedTime 01/31/20 20 02/03/2020 SARS CoV 2 RNA (COVI D-19) , QL, donor technician-P CR, respi rator y speci men covid-19, ANA Not Detec betsey Refer ence range : Not Detec betsey (NOTE ) This nucle ic acid ampli ficat ion test was devel oped and its perfo rmanc e carl cteri stics deter mined by [facility] at[facility] es. Nucle ic acid ampli ficat ion tests inclu de PCR and TMA. This test has not been FDA clear ed or appro ivet. This test has been autho rized by FDA under an Emerg ency Use Autho rizat ion (EUA) . This test is only autho rized for the durat ion of time the decla ratio n that circu mstan stephen exist justi fying the autho rizat ion of the emerg ency use of in vitro diagn ostic tests for detec tion of SARS- CoV-2 virus and/o r diagn osis of COVID -19 infec tion under secti on 564(b )(1) of the Act, 21 U.S.C . 360bb b-3(b ) (1), unles s the autho rizat ion is termi nated or revok ed soone r. When diagn ostic testi ng is negat funmilayo, the possi bilit y of a false negat funmilayo resul t shoul d be consi dered in the katie xt of a patie nt's recen t expos ures and the prese nce of clini rachelle signs and sympt oms consi stent with COVID -19. An indiv idual witho ut sympt oms of COVID - 19 and who is not britni ing SARS- CoV-2 virus would expec t to have a negat funmilayo (not detec betsey) resul t in this assay . TEST PERFO RMED BY [facility], [place], [place] Not Available [facility] [address] [place], [address], 02/03/2020 10:14:50 03/25/19 21 03/27/2020 SARS CoV 2 RNA (COVI D-19) , QL, donor technician-P CR, respi rator y speci men covid-19, (RT)-PCR (neg) NEGAT FUNMILAYO 2018- novel Coron aviru s (2018nCoV ) not detec betsey by the qRT-P CR assay . If clini rachelle suspi cion for COVID -19 is high, isabelle nue to maint ain preca ution s and consi jamarcus repea t testi ng. Resul t repor betsey to [facility]. This test has been autho rized by the FDA under an Emerg ency Use Autho rizat ion (EUA) for use by autho rized labor atori es. Test perfo rmed by Clini rachelle Res[facility] at the [facility] and Susan nagel, [address] [place] [address] . CLIA ID: [id number] , CAP: [id number]. Medic al Direc tor: Holli Mari, PhD FACMG (NOTE ) The CRSP SARS- CoV-2 Real- time Rever se Trans cript ase (RT)- PCR Diagn ostic Assay is a real- time RT-PC R test inten ded for the quali tativ e detec tion of nucle ic acid from the SARS- CoV-2 in nasop haryn geal and oroph aryng eal swabs colle cted from indiv idual s who may have contr acted the virus . Testi ng is limit ed to the Clini rachelle Resea [facility] or at the [facility] which is certi fied under the Clini rachelle Labor atory Impro vemen t Amend ments of 1987 (CLIA ), 42 U.S.C . ?263a , to perfo rm high compl exity tests . = Posit funmilayo resul ts are indic ative of activ e infec tion with SARS- CoV-2 but do not rule out bacte rial infec tion or co-in fecti on with other virus es. The agent detec betsey may not be the defin ite cause of disea se. In addit ion, nucle ic acid detec tion can persi st follo wing clear ance of activ e viral repli catio n. Labor atori es withi n the [place] s and its adina martinez s are requi red to repor t all posit funmilayo resul ts to the appro priat e publi c healt h autho ritie s. = Negat funmilayo resul ts do not precl ude SARS- CoV-2 infec tion and shoul d not be used as the sole basis for patie nt treat ment or other patie nt manag ement decis ions. Negat funmilayo resul ts must be combi ava with clini rachelle obser vatio ns, patie nt histo ry, and epide miolo gical infor matlakshmi n. Not Available [facility] [address], [place], [address], 03/27/2020 15:59:28 03/11/20 21 03/11/2021 rapid SARS CoV 2 Ag, QL IA, respi rator y speci men Covid-19 (ref: neg) negati ve Not Available [facility] [address] [place], [address], 03/11/2021 12:44:38 03/11/20 21 03/11/2021 rapid SARS CoV 2 Ag, QL IA, respi rator y speci men Control Visual ized/V alid Not Available [facility] [address] [place], [address], 03/11/2021 12:44:38 03/11/20 21 03/11/2021 rapid SARS CoV 2 Ag, QL IA, respi rator y speci men Location [facility], [address] [place] [address], [id number] [phone] Not Available [facility] [address] [place], [address], 03/11/2021 12:44:38 04/17/19 22 04/17/2021 rapid SARS CoV 2 Ag, QL IA, respi rator y speci men Covid-19 (ref: neg) positi ve Not Available [facility] [address] [place], [address], 04/17/2021 20:23:42 04/17/19 22 04/17/2021 rapid SARS CoV 2 Ag, QL IA, respi rator y speci men Control Visual ized/V alid Not Available [facility] [address] [place], [address], 04/17/2021 20:23:42 04/17/19 22 04/17/2021 rapid SARS CoV 2 Ag, QL IA, respi rator y speci men Location [facility], [address] [facility], [place] [address], [phone] Not Available [facility] [address] [facility], [place], [address], 04/17/2021 20:23:42 Result Notes None recorded. Procedures Surgical History Date Name Laterality Status Provider Name and Address Organization Details Recorded Time procedure on lung completed Monika Aguayo [place] [facility] 03/25/19 17:01:52 ligation of fallopian tube completed Monika Aguayo [place] [facility] 2020 17:01:52 ligation of fallopian tube completed KAYLIE HUFF [address] [place], [address], [place] [facility] 03/25/2020 16:19:48 procedure on lung completed KAYLIE HUFF [address] [place], [address], [place] [facility] 03/25/2020 16:20:09 Imaging Results None recorded. Procedure Notes None recorded. Medical Equipment None Reported. Allergies No known drug allergies Medications Name Sig Start Date Stop Date Status Note LastModified by Organization Details LastModified Time freestyle mis lancets active Not Available Not Available Not Available atorvastati n 40 mg tablet TAKE 1 TABLET BY MOUTH DAILY active Not Available Not Available No t Available metformin 500 mg tablet TOME ERICA TABLETA POR V A ORAL CADA MA HESHAM AND 2 TABLETS IN THE EVENING active Not Available Not Available No t Available BD Alcohol Swabs USE TIA VECES AL D A active Not Available Not Available No t Available atorvastati n 80 mg tablet TOME ERICA TABLETA TODOS LOS D 04/17 completed Not Available Not Available Not Available prednisone 10 mg tablet 2021 active Not Available Not Available Not Avai lable ipratropium 0.5 mg-albutero l 3 mg (2.5 mg base)/3 mL nebulizatio n soln INHALE 1 VIAL VIA NEBULIZER CUATRO VECES AL D A CUANDO SEA NECESARIO FOR SHORTNESS OF BREATH active Not Available Not Available No t Available azithromyci n 250 mg tablet TOME 2 TABLETAS POR V A ORAL HOY, LUEGO TOME 1 TABLETA POR D A ERIK 4 D 01/30 completed Not Available Not Available Not Available ibuprofen 800 mg tablet TOME ERICA TABLETA POR V A ORAL TIA VECES AL D A NEEDED FOR PAIN active Not Available Not Available No t Available nystatin 100,000 unit/gram topical ointment APPLY TO AFFECTED TWICE A DAY FOR 10 DAYS active Not Available Not Available No t Available tizanidine 4 mg tablet TOME ERICA TABLETA TIA VECES AL D A CUANDO SEA NECESARIO 04/17 completed Not Available Not Available Not Available metoprolol succinate ER 50 mg tablet,exte nded release 24 hr TOME ERICA TABLETA POR V A ORAL TODOS LOS D active Not Available Not Available No t Available FreeStyle Lancets 28 gauge DIRECTED THREE TIME A DAY active Not Available Not Available No t Available prednisone 20 mg tablet TAKE 2 TABLETS BY MOUTH DAILY FOR 5 DAYS, THEN 1 TABLET DAILY FOR 5 DAYS 04/17 completed Not Available Not Available Not Available sertraline 100 mg tablet TOME ERICA TABLETA TODOS LOS D 04/17 completed Not Available Not Available Not Available metronidazo le 500 mg tablet 04/17 completed Not Available Not Available Not Available aspirin 81 mg tablet,lavern yed release TOME ERICA TABLETA TODOS LOS D 04/17 completed Not Available Not Available Not Available tramadol 50 mg tablet TOME ERICA TABLETA TIA VECES AL D A CUANDO SEA NECESARIO PARA EL DOLOR active Not Available Not Available No t Available amitriptyli ne 25 mg tablet TOME ERICA TABLETA POR V A ORAL AL ACOSTARSE active Not Available Not Available No t Available lorazepam 0.5 mg tablet TOME ERICA TABLETA POR VIA ORAL DOS VECES AL FELECIA ONCE A DAY ORALLY 30 DAYS 04/17 completed Not Available Not Available Not Available metoclopram jacque 5 mg tablet TOME ERICA TABLETA POR V A ORAL TIA VECES AL D A ANTES DE LAS COMIDAS 04/17 completed Not Available Not Available Not Available repaglinide 0.5 mg tablet 1 PILL BEFORE BREAKFAST 2 PILLS PRIOR TO DINNER 2 X A DAY WITHIN 30 MIN OF A MEAL OR SNACK 04/17 completed Not Available Not Available Not Available benzonatate 100 mg capsule 1 CAPSULE THREE TIMES A DAY NEEDED FOR COUGH ORALLY 15 DAYS 04/17 completed Not Available Not Available Not Available metformin 1,000 mg tablet TOME ERICA TABLETA DOS VECES AL D A 04/17 completed Not Available Not Available Not Available clotrimazol e-betametha sone 1 %-0.05 % topical cream APPLY TOPICALLY TO AFFECTED AREA TWICE DAILY FOR NO MORE THAN 10 DAYS 04/17 completed Not Available Not Available Not Available valsartan 320 mg tablet TOME ERICA TABLETA POR V A ORAL A DIARIO active Not Available Not Available No t Available glucose 4 gram chewable tablet active Not Available Not Available Not Available fluoxetine 10 mg capsule TOME ERICA C PSULA TODOS LOS D active Not Available Not Available No t Available gabapentin 300 mg capsule TOME 1 C PSULA POR V A ORAL AL ACOSTARSE 04/17 completed Not Available Not Available Not Available Senna Laxative 8.6 mg tablet 04/17 completed Not Available Not Available Not Available aspirin 81 mg chewable tablet TOME ERICA TABLETA TODOS LOS D active Not Available Not Available No t Available montelukast 10 mg tablet TAKE 1 TABLET BY MOUTH AT BEDTIME active Not Available Not Available No t Available hydrochloro thiazide 25 mg tablet TOME ERICA TABLETA POR V A ORAL A DIARIO active Not Available Not Available No t Available nystatin 100,000 unit/gram topical powder APLIQUE AL KARTIK AFECTADA TIA VECES AL D A 04/17 completed Not Available Not Available Not Available lorazepam 1 mg tablet TOME ERICA TABLETA POR V A ORAL EVERY NIGHT NEEDED AND 1/2 TAB DAILY NEEDED active Not Available Not Available No t Available estradiol 0.01% (0.1 mg/gram) vaginal cream APPLY SMALL AMOUNT TO THE LABIA NIGHTLY AT BEDTIME FOR ONE WEEK THEN TWICE A WEEK ( AND WEDNESDAY) 04/17 completed Not Available Not Available Not Available zolpidem 10 mg tablet 1 TABLET ONCE A DAY AT BEDTIME NEEDED FOR INSOMNIA 04/17 completed Not Available Not Available Not Available albuterol sulfate HFA 90 mcg/actuati on aerosol inhaler 2 PUFF INHALATIO N 6 HOURS NEEDED FOR SHORTNESS OF BREATH OR WHEEZING active Not Available Not Available No t Available losartan 100 mg tablet TOME ERICA TABLETA POR VIA ORAL TODOS LOS ARAUJO ONCE A DAY ORALLY 30 DAYS 04/17 completed Not Available Not Available Not Available fluoxetine 20 mg capsule TOME 1 C PSULA POR V A ORAL CADA MA HESHAM active Not Available Not Available No t Available fluticasone propionate 50 mcg/actuati on nasal spray,suspe nsion SPRAY 2 SPRAYS INTRANASA LLY DAILY NEEDED FOR ALLERGY SYMPTOMS active Not Available Not Available No t Available doxycycline hyclate 100 mg tablet TOME ERICA TABLETA DOS VECES AL D A POR 10 D 04/17 completed Not Available Not Available Not Available loratadine 10 mg tablet TOME ERICA TABLETA POR V A ORAL DAILY NEEDED FOR ALLERGY SYMPTOMS active Not Available Not Available No t Available amoxicillin 875 mg-potassiu m clavulanate 125 mg tablet TOME ERICA TABLETA DOS VECES AL D A POR 10 D 2021 active Not Available Not Available Not Avai lable duloxetine 60 mg capsule,del ayed release TOME 1 C PSULA POR V A ORAL A DIARIO active Not Available Not Available No t Available Flovent HFA 220 mcg/actuati on aerosol inhaler INHALE 1 PUFF BY MOUTH TWICE DAILY 04/17 completed Not Available Not Available Not Available pregabalin 100 mg capsule TAKE 100 MG POR V A ORAL TIA VECES AL D A active Not Available Not Available No t Available Dexilant 60 mg capsule, delayed release TOME 1 C PSULA POR V A ORAL A DIARIO active Not Available Not Available No t Available OneTouch Verio test strips TIA VECES AL D A active Not Available Not Available No t Available Linzess 145 mcg capsule TOME 1 C PSULA POR V A ORAL CADA MA HESHAM 04/17 completed Not Available Not Available Not Available Victoza 3-Zeus 0.6 mg/0.1 mL (18 mg/3 mL) subcutaneou s pen injector INJECT 1.8 MG (0.3 ML) UNDER SKIN DAILY active Not Available Not Available No t Available Spiriva Respimat 2.5 mcg/actuati on solution for inhalation TOME DOS INHALACIO JULIAN TODOS LOS D active Not Available Not Available No t Available Incruse Ellipta 62.5 mcg/actuati on powder for inhalation TAKE 1 INHALATIO N DAILY 30 DAYS 04/17 completed Not Available Not Available Not Available ProAir RespiClick 90 mcg/actuati on breath activated INHALE 2 PUFFS EVERY 4 TO 6 HRS NEEDED FOR SHORTNESS OF BREATH/WH EEZING 04/17 completed Not Available Not Available Not Available Winifredforrest RyanJulio U-100 Insulin 100 unit/mL (3 mL) subcutaneou s INJECT 6 UNITS (0.06 ML) UNDER THE SKIN IN THE AM active Not Available Not Available No t Available FreeStyle Mary Ann 14 Day [place] DIRECTED FOUR OR MORE TIMES A DAY USE DIRECTED active Not Available Not Available No t Available FreeStyle Mary Ann 14 Day Sensor kit DIRECTED FOUR OR MORE TIMES A DAY USE DIRECTED 90 DAYS active Not Available Not Available No t Available BD Cindy 2nd Gen Pen Needle 32 gauge x 5/32 USE DOS VECES AL D A active Not Available Not Available No t Available OneTouch Verio Reflect Meter DIRECTED 3X/DAY active Not Available Not Available No t Available Vitals Date Recorded Oxygen saturation Oxygen saturation in Arterial blood by Pulse oximetry Body temperature Respiratory rate Heart rate Systolic blood pressure Diastolic blood pressure Provider Name and Address Organization Details Last Updated DateTime 0 96 % 96 % 98.7 [degF] 20 /min 80 /min 90 mm[Hg] 60 mm[Hg] [facility]ika [facility]ayo [place] [facility] 1 17:01:50 Date Recorded Oxygen saturation Oxygen saturation in Arterial blood by Pulse oximetry Respiratory rate Body temperature Heart rate Systolic blood pressure Diastolic blood pressure Provider Name and Address Organization Details Last Updated DateTime 1 99 % 99 % 20 /min 97.5 [degF] 84 /min 120 mm[Hg] 84 mm[Hg] Not Available [facility] 1 16:18:51 Date Recorded Heart rate Body temperature Respiratory rate Oxygen saturation Oxygen saturation in Arterial blood by Pulse oximetry Systolic blood pressure Diastolic blood pressure Provider Name and Address Organization Details Last Updated DateTime 1 80 /min 97.5 [degF] 18 /min 99 % 99 % 124 mm[Hg] 64 mm[Hg] Not Available [facility] 1 12:54:41 Date Recorded Body temperature Heart rate Oxygen saturation Oxygen saturation in Arterial blood by Pulse oximetry Respiratory rate Systolic blood pressure Diastolic blood pressure Provider Name and Address Organization Details Last Updated DateTime 2 97.7 [degF] 78 /min 98 % 98 % 16 /min 118 mm[Hg] 64 mm[Hg] Not Available [facility] 2 20:20:02 Social History Question Answer Notes LastModified by Organizat ion Details LastModified Time Tobacco Smoking Status Never Smoker KAYLIE HUFF [address] [place], [address], [place] [facility] 03/25/2020 16:18:06 Do You Have An Advance Directive? No [email or web address] Information not available 03/25/2020 What Is Your Code Status? Full Code [email or web address] Information not available 03/25/2020 Within The Past 12 Months, Has It Happened That The Food You Bought Just Didn't Last And You Didn't Have Money To Get More. No [email or web address] Information not available 03/25/2020 Within The Past 12 Months, Have You Worried That Your Food Would Run Out Before You Got Money To Buy More. No Information not available 03/25/2020 Fall Risk: Do You Feel Unsteady When Standing Or Walking? Yes [email or web address] Information not available 03/25/2020 We Know That How And When People Interact With Friends And Family Can Be Very Different From Person To Person. How Often Do You Have The Opportunity To See Or Talk To People That You Care About And Feel Close To? (Ex: Talking To Friends On The Phone Or Visiting Friends Or Family Or Going To Latter Day Or Club Meetings) 5 Or More Times Per Week Information not available 03/25/2020 Excessive Alcohol Or Drug Use No Information not available 03/25/2020 We Know From Many Of Our Patients That Covering All Of Their Costs Can Be Difficult At Times. This Can Cause Stress And Impact Health. In The Past Year, Have You Been Unable To Get Any Of The Following When It Was Really Needed? No [email or web address] Information not available 03/25/2020 What Is Your Housing Situation Today? I Have Housing [email or web address] Information not available 03/25/2020 Would You Like Help Connecting To Resources? None [email or web address] Information not available 03/25/2020 Sex: Unknown Functional Status None recorded. Mental Status None recorded. Family History Relationship Description Onset Age of this Age Resolved Age Notes LastModified by Organization Details LastModified Time Mother Coronary arterioscler osis [email or web address] Not available 2020 17:01:50 Medical History Condition Response Diabetes Y Coronary Artery Disease N CHF N Cancer Y Stroke Y Asthma N Depression Y COPD N High Cholesterol Y Pulmonary Embolism N Hypertension Y Kidney Disease N Gynecological HistoryNo gynecological history recorded. Obstetrics History GPAL:G 0 P 0 0 0 0 Past Encounters Encounter ID Performer Location Encounter Start Date Encounter Closed Date Diagnosis/Indication Diagnosis SNOMED-CT Code Diagnosis ICD10 Code Diagnosis Note [id number] Monika Aguayo [facility] [place] [address] [place] [address] 01/31/2020 13:13:02 02/03/2020 10:54:55 Exposure to communicable disease 785214526 Z20.828 [id number] [facility] [address] [place] [address] 03/25/2020 15:14:18 03/26/2020 11:25:32 Exposure to communicable disease 103136180 Z20.828 Cough 47473666 R05 [id number] Germain Waldron NP [facility] [address] [place] [address] 03/11/2021 12:37:35 03/16/2021 18:38:11 Viral upper respiratory tract infection 722561193 J06.9 [id number] Samira Brandon NP [facility] [address] [place] [address] 04/17/2021 20:06:36 04/21/2021 10:48:20 Congestion of nasal sinus 81720218 R09.81 COVID-19 202149133 U07.1 Dry cough 49626559 R05.9 Health Concerns Section Related Observation LastModified by Organization Detai ls LastModified Time None Recorded Concern Status LastModified by Organization Details LastModified Time None Recorded Advance Directives Directive N: Payers Encounter Date Sequence Insurance Name Policy Number Policy Fuentes Covered Member ID Fuentes Member ID Guarantor Name 01/31/2020 1 [place] [facility] Radha Beckford [id number] Radha Shah 03/25/2020 1 [place] [facility] Radha Sahu [id number] Radha Shah 03/11/2021 1 [facility] OPT[place] - [place]IG[place] ([place] - [place]AC[place]) [id number] Radha Shah [id number] Radha Shah 03/11/2021 2 [place] [facility] Radha Starksa [id number] Radha Shah 04/17/2021 2 [place] [facility] Radha Starksa [id number] Radha Shah 04/17/2021 1 [employer] - [employer] - MEDICARE SOLUTIONS - MEDICARE COMPLETE (MEDICARE REPLACEMENT HMO) [id number] Radha Shah [id number] Radha Shah Notes Date Note Type Note Provider Name and Address Organization Details Recorded Time 01/31/2020 text/html 64yo F new to pmx asthma, HDL, IDDM, GERD, anxiety is seen today for a COVID test. Patient's granddaughter was here last week and tested positive for COVID 2 days ago. No fever, cough, cp, sob. Blood sugar this morning was 168. Patient was seen in the presence of her daughter China who interprets for the patient. [place] is her parent's health care proxy KAYLIE HUFF, [place], [address], [place] [facility] 01/31/2020 17:03:41 03/25/2020 text/html 64yoF known to D and known to this provider pmhx HTN, HDL, CVA, and DM is seen today for a cough and covid exposure. Patient was with her grandsons 4 days ago and while eating dinner with them one of them noted he could not taste certain things. Family reportes yesterday that he has COVID. Patient reports cough and slight decrease in appetite. No fever, cp or sob[place], [address], [place] [facility] 03/25/2020 17:24:37 03/11/2021 text/html Pt states she be bunny having nasal congestion and runny nose 2-3 days ago and was exposed to someone with COVID-19 7 days ago. She denies any fever chills, nausea, vomiting, cough, or shortness of breath. SHe states she did have a couple episodes of diarrhea yesterday but this is not abnormal for her due to taking metformin. Germain Waldron NP [address], [place], [address], [place] [facility] 03/11/2021 13:20:18 04/17/2021 text/html 65 yo f with a P MH of anxiety/depression, DM, HLC, HTN and stroke has had a cough x 2 days with frontal sinus pain. has been sick with similar symptoms. Taking Robitussin DM and provider prescribed Augmentin and prednisone 2 days ago Telehel[facility] visit. Samira Brandon NP [address], [place], [address], [place] [facility] 04/20/2021 16:17:15 OBGyn Episode No OBEpisode recorded.
--- OUTSIDE RECORDS SUMMARY | 2024-04-13 11:29 | XMS_ITS | Encounter Summary ---
Author Organization [facility] Address [address] [place] [address] Care Team Providers Care Basic Acoustic Analyst Name Role Phone Leroy Jauregui MD Primary Care Provider Leroy Garcia MD Primary Care Provider Leroy Garcia MD Unavailable Unavailable Pratibha Waggoner MD Unavailable Encounter Details Date Type Department Care Team Description 11/07/2021 Family Service Worker Report Medical Records [address] [place] [address] Pratibha Waggoner MD [address] [place] [address] Social History Tobacco Use Types Packs/Day Years Used Date Smoking Tobacco: Never Assessed Sex Assigned at Date Recorded Not on file documented as of this encounter Plan of Treatment Not on file documented as of this encounter Visit Diagnoses Not on filedocumented in this encounter Care Teams Basic Acoustic Analyst Relationship Specialty Start Date End Date Leroy Jauregui MD PCP - General Internal Medicine 04/21/18 11/10/21 Leroy Jauregui MD PCP - General Internal Medicine 11/11/21 Leroy Jauregui MD Internal Medicine 11/11/21 Pratibha Waggoner MD Lung Cancer Assistant Therapy Aide 12/28/22 documented as of this encounter
[2024-04-13 13:10] LABS: Appearance Urine Cloudy; Color Urine Yellow; Glucose Urine UA Negative (Negative); Leukocyte Esterase Urine Small (1+) (Negative); Nitrite Urine Negative (Negative); PH 6.5 (5.0-9.0); UMIC TRIGGER UACC YES; Urine Blood Negative (Negative); Urine Ketones Negative (Negative); Urine Protein Negative (Neg-Trace)
[2024-04-13 13:21] LABS: Bacteria Urine Trace (None Seen); Hyaline Casts Urine 0-2 /LPF (0-2); RBC Urine 0-2 /HPF (0-2); UACC Culture Trigger YES; WBC Urine 0-5 /HPF (0-5)
== END 2024-04-13 08:43 | disposition home or self-care (01) ==
LOC: HO.LAB 08:42
PROVIDERS: Visit Provider Internal Medicine
DX: E11.42 Type 2 diabetes mellitus with diabetic polyneuropathy (principal); I25.10 Atherosclerotic heart disease of native coronary artery without angina pectoris; E78.00 Pure hypercholesterolemia, unspecified; I10 Essential (primary) hypertension; C7A.090 Malignant carcinoid tumor of the bronchus and lung; J45.41 Moderate persistent asthma with (acute) exacerbation; G47.33 Obstructive sleep apnea (adult) (pediatric); K21.9 Gastro-esophageal reflux disease without esophagitis; E55.9 Vitamin D deficiency, unspecified; E53.8 Deficiency of other specified B group vitamins; M51.360 Other intervertebral disc degeneration, lumbar region with discogenic back pain only; M19.91 Primary osteoarthritis, unspecified site; M79.7 Fibromyalgia; R79.89 Other specified abnormal findings of blood chemistry; F41.9 Anxiety disorder, unspecified; F33.9 Major depressive disorder, recurrent, unspecified; E66.01 Morbid (severe) obesity due to excess calories; Z68.41 Body mass index [BMI] 40.0-44.9, adult; D64.9 Anemia, unspecified; R30.0 Dysuria
CPT/HCPCS: 36415; 80053; 80061; 81001; 81003; 82306; 82607; 82746; 83036; 84443; 85025; 87086; 96127; 99212

== ENCOUNTER 2024-04-13 11:04 | Outpatient (AMB) | payer MEDICARE, MEDICAID, SELFPAY ==
[2024-04-13 11:39] VITALS: BP 132/78; PULSE 78; O2SAT 98; BMI 40.3
--- NOTE | 2024-04-13 11:39 | MHC.PC.OV ---
Vital Signs 04/13/24 11:39 Height 5 ft 1 in Weight 213 lb 6 oz BMI 40.3 BP 132/78 Blood Pressure Location Lt brachial Position Sitting Pulse 78 Pulse Source Pulse Oximeter Pulse Oximetry (%) 98 Oxygen Delivery Method Room Air Intake Visit Reasons: 4 month f/u Predictive Maintenance Technician Required: No Accompanied by: Self / Same As Patient Allergies penicillin G Allergy (Severe, Verified 04/13/24 12:14) Itching latex Allergy (Intermediate, Verified 04/13/24 12:14) Itching nitrofurantoin Allergy (Intermediate, Verified 04/13/24 12:14) itching and redness (in the legs) Medication List - Last Reconciled 04/14/24 by Leroy Jauregui MD [ADULT BRIEFS (size XL) As directed] [ADULT PULL-UPS (size XL) As directed] albuterol sulfate 90 mcg/actuation 2 puffs inhalation QID PRN albuterol sulfate 2.5 mg continuous nebulization Q4-6H PRN alcohol swabs 1 pad topical TID amitriptyline 25 mg PO BEDTIME aspirin 81 mg PO DAILY 90 days atorvastatin 40 mg PO DAILY blood pressure monitor As directed blood sugar diagnostic (OneTouch Verio test strips) Three times a day blood sugar diagnostic (OneTouch Verio test strips) As directed tests 4X/day blood-glucose meter Three times a day blood-glucose meter (OneTouch Verio Flex Meter) As directed trsts 4 X/day cholecalciferol (vitamin D3) 50 mcg PO DAILY 90 days clotrimazole-betamethasone 1-0.05 % 1 appl topical BID PRN 7 days cyanocobalamin (vitamin B-12) 1,000 mcg PO DAILY 90 days dexlansoprazole 60 mg PO DAILY dextromethorphan-guaifenesin 5-100 mg/5 mL (Robitussin Cough-Chest Congestion DM) 10 mL PO Q6-8H PRN 15 days diclofenac sodium 1% (Arthritis Pain (diclofenac)) 2 grams topical QID PRN dicyclomine 1 tab tid and 2 qhs orally; [DISPOSABLE WIPES As directed] [DISPOSABLE WIPES As directed] dulaglutide (Trulicity) 3 mg subcut QWEEK famotidine 40 mg PO BEDTIME 15 days flash glucose scanning reader ([employer] [place] 2 [place]) As directed flash glucose sensor (FreeStyle Mary Ann 2 Sensor kit) As directed change every 14 days fluticasone propionate 220 mcg/actuation (Flovent HFA) 1 puff PO BID fluticasone propionate 50 mcg/actuation 2 sprays intranasal DAILY 30 days [FOUR-PRONGED CANE As directed] furosemide 20 mg PO DAILY glucose 12 grams (3 x 4 gram) PO Q15M hydrochlorothiazide 25 mg PO DAILY 90 days hydrocortisone 2.5% 1 appl topical BID PRN hydrocortisone 2.5% (Proctosol HC) 1 appl HI BID ibuprofen 800 mg PO TID PRN ipratropium-albuterol 0.5 mg-3 mg(2.5 mg base)/3 mL 3 mL inhalation QID PRN lancets (OneTouch Delica Lancets) Three times a day lancets (FreeStyle Lancets) As directed three time a day lancets (OneTouch Delica Plus Lancet) As directed-tests 4 X/day lancets (FreeStyle Lancets) As directed lidocaine 5% (Lidoderm) 1 patch topical DAILY 30 days [LIGHTWEIGHT WALKER WITH SEAT walker with seat] linaclotide (Linzess) 72 mcg PO QAM loratadine 10 mg PO DAILY PRN 90 days memantine 10 mg PO BID metformin 500 mg PO DAILY metoclopramide HCl (Reglan) 5 mg PO .tidachs metoprolol succinate ER 50 mg PO DAILY montelukast 10 mg PO BEDTIME nebulizers As directed nystatin 1 appl topical TID pen needle, diabetic (BD Ultra-Fine Cindy Pen Needle) twice daily pen needle, diabetic (Comfort EZ Pen Guffey) As directed injects once a day pregabalin 200 mg PO Q8H 30 days psyllium husk (Metamucil) 1 tbsp PO BID roflumilast (Daliresp) 500 mcg PO DAILY 30 days [ROLLATOR with SEAT As directed] sertraline 50 mg PO DAILY Shower Chair As directed tiotropium-olodaterol 2.5-2.5 mcg/actuation (Stiolto Respimat) 2 puffs inhalation DAILY tizanidine 4 mg PO TID PRN tramadol 50 mg PO TID PRN 30 days umeclidinium-vilanterol 62.5-25 mcg/actuation (Anoro Ellipta) 1 inh inhalation DAILY valacyclovir 500 mg PO BID valsartan 320 mg PO DAILY Tobacco use date assessed: 04/13/24 Fall risk assessment: 2 + Falls in past year Last assessed Fall Risk: 04/13/24 Dental Screening Dental Screen Date: 04/13/24 Did you have a dental visit in the last 12 months?: Yes Did you have a dental problem in the last 6 months where you did not have access to dental care?: No Was dental information given to patient?: Patient has dentist HPI 4 month f/u HPI Details Patient comes in today for her follow-up visit States that she is just getting over a bout of respiratory infection (states that she had the flu) and currently still has a recurrent cough as well as nasal congestion States that she just finished a course of Abx and oral Prednisone taper and that her breathing has improved significantly with Tx She denies any fever or sore throat; denies any headaches or dizziness Denies any chest pains, no increased SOB at present No nausea/vomiting, no abdominal pain No change in bowel habits noted Adds that she has been experiencing recurrent leg pains and aching recently She also continues to complain of low back pain, which is chronic She takes Tramadol and uses Lidocaine patches to help control / manage her pain - will need her Lidocaine patches Rx refilled She had her follow up labs done earlier this morning - to discuss her results [facility] Medical History Frozen shoulder Frequent fecal incontinence Stool incontinence Osteoarthritis Chest pain Calcific tendinitis of left shoulder Weakness of left upper extremity Weakness of both lower extremities Joint pain in fingers of both hands Joint pain in both hands Bilateral knee pain Vitamin B12 deficiency Bilateral ankle pain Rash Right foot pain Medicare annual wellness visit, subsequent Cervical cancer screening Bronchopneumonia Chronic low back pain Bilateral foot pain Bilateral hip pain Annual physical exam Hyperlipidemia LDL goal <70 Bilateral hip pain Fibromyalgia Chronic bronchitis Vitamin D deficiency Post-thoracotomy pain syndrome COPD (chronic obstructive pulmonary disease) Depression Anxiety Type 2 diabetes mellitus with diabetic polyneuropathy Pulmonary nodules Allergic rhinitis GERD (gastroesophageal reflux disease) Morbid obesity with BMI of 40.0-44.9, adult Asthma Obstructive sleep apnea Lumbar degenerative disc disease Carcinoid tumor Coronary artery disease Benign essential hypertension Type 2 diabetes mellitus with hyperglycemia, with long-term current use of insulin Surgical History History of colonoscopy (~12/2013) History of tubal ligation History of lung biopsy (~07/2016) History of esophagogastroduodenoscopy (EGD) (~10/2011) History of lobectomy of lung (~08/2016) History of rectal sphincterotomy (~11/2013) History of cardiac cath (~07/2018) Family History Father Stroke Hypertension Diabetes Mother Diabetes Hypertension Other Arthritis Lupus Social History Household Members: Spouse Housing: Apartment Alcohol intake: never Patient Tobacco Use Status: Former Tobacco user Tobacco use type: Cigarette e-Cigarette/Vaping Use: Never Used Second Hand Smoke Exposure: Yes service: No Current occupational status: disabled Cognitive needs: No Hearing needs: No Vision needs: Yes Questionnaire PHQ-9 Over the last 2 weeks, how often have you been bothered by any of the following problems? 1. Little interest or pleasure in doing things: nearly every day 2. Feeling down, depressed, or hopeless: several days 3. Trouble falling or staying asleep, or sleeping too much: nearly every day 4. Feeling tired or having little energy: several days 5. Poor appetite or overeating: several days 6. Feeling bad about yourself - or that you are a failure or have let yourself or your family down: several days 7. Trouble concentrating on things, such as reading the newspaper or watching television: several days 8. Moving or speaking so slowly that other people could have noticed. Or the opposite - being so fidgety or restless that you have been moving around a lot more than usual: several days 9. Thoughts that you would be better off or of hurting yourself in some way: not at all Total score: 12 Depression Screening Interpretation: Positive Depression Screening Follow-up: Existing condition and In treatment Depression Screening Done: Yes 98568 - PHQ-9 Billing: Yes Source: Developed by Drs. Jeffrey Chavez, Marj Villatoro, Vaibhav Pagan and colleagues, with an educational norm from [employer]. Thrive Questionnaire Date Thrive assessed: 04/13/24 I am a: Patient What is your living situation today?: I have a steady place to live Within the past 12 months, did the food you bought not last and you didn't have the money to get more?: Never true Within the past 12 months, did you worry whether your food would run out before you got money to buy more?: Never true Do you have trouble paying for medicines?: No Do you have trouble getting transportation to medical appointments?: No Do you have trouble paying your heating and electricity bill?: No Do you have trouble taking care of your child, family member or friend?: No Do you have trouble with day-to-day activities such as bathing, preparing meals, shopping, managing finances, etc.?: No Are you currently unemployed and looking for a job?: No Are you interested in more education?: No Please select the resources that you would like help with: None Currently or been in a relationship where the following occur: No concerns reported THRIVE Score: 0 AUDIT C Alcohol Use Questionnaire (AUDIT-C) 1. How often do you have a drink containing alcohol?: Never 3. How often do you have six or more drinks on one occasion?: Never Total Score: 0 Score Reviewed/Action Taken: Yes EVELINE-7 AMB Questionnaire EVELINE-7 Date EVELINE - 7 assessed: 04/13/24 Feeling nervous, anxious, or on edge: 0 = Not at all Not being able to stop or control worryin = Not at all Worrying too much about different things: 0 = Not at all Trouble relaxin = Not at all Being so restless that it is hard to sit still: 0 = Not at all Becoming easily annoyed or irritable: 0 = Not at all Feeling afraid as if something awful might happen: 0 = Not at all Total EVELINE-7 score (0-4 normal; 5-9 mild; 10-14 moderate; 15-21 severe): 0 Source: Developed by Drs. Jeffrey Chavez, Marj Villatoro, Vaibhav Pagan and colleagues, with an educational norm from [employer]. Review of Systems Const Denies chills, Reports difficulty sleeping, Reports fatigue, Denies fever(s) and Denies headache(s) ENT Denies dysphagia, Denies dizziness, Denies otalgia, Denies headache(s), Reports nasal congestion, Reports neck pain, Denies odynophagia, Denies sinus pain and Denies sore throat Card Denies chest pain, Denies palpitations and Reports dyspnea on exertion (mild) Resp Denies chest congestion, Reports cough (on and off), Reports dyspnea on exertion (mild) and Denies wheezing (improved with Tx) GI Denies abdominal pain, Denies constipation, Denies dysphagia, Denies heartburn, Reports fecal incontinence, Denies diarrhea, Denies nausea, Denies odynophagia and Denies vomiting Denies difficulty voiding, Denies nocturia, Denies dysuria, Reports urinary incontinence (at times) and Denies urinary urgency Musc Reports back pain (especially over the right lower back), Reports arthralgias (involving multiple joints, including L shoulder, L hip and L knee), Reports neck pain and Reports numbness (in both feet, on and off) Skin/Breast Denies rash Neuro Denies dizziness, Denies headache(s), Reports numbness (in both feet, on and off) and Reports paresthesias (in both feet) Endo Reports fatigue and Denies palpitations Aller/Immun Denies wheezing (improved with Tx) Physical exam (Primary Care) Vital Signs: Last Vital Signs Pulse 78 04/13/24 11:39 BP 132/78 04/13/24 11:39 Pulse Ox 98 04/13/24 11:39 Oxygen Delivery Method Room Air 04/13/24 11:39 BMI result Body Mass Index 40.3 Tobacco/Smoking Status: Tobacco use Status Tobacco use date assessed 04/13/24 04/13/24 11:43 Patient Tobacco Use Status Former Tobacco user 04/13/24 11:43 Tobacco use type Cigarette 04/13/24 11:43 e-Cigarette/Vaping Use Never Used 04/13/24 11:43 PHQ-9: PHQ-9 Score PHQ-9: Total score 12 04/13/24 12:16 Depression Screening Interpretation: Positive Depression Screening Follow-up: Existing condition and In treatment Thrive Assessment: Date of Thrive Assessment Date Thrive assessed 04/13/24 04/13/24 11:43 Currently or been in a relationship where the following occur: No concerns reported Const General: no acute distress and alert HENMT Ears: TM's normal bilaterally and EAC's normal Throat: Yes posterior oropharynx normal and Yes tonsils normal (no TP congestion noted) Neck Neck: Yes supple and No lymphadenopathy Thyroid: Thyroid normal Resp Auscultation: no crackles, no rales, no wheezes and diminished lung sounds (slightly) bilateral Cardio Rate: regular rate Rhythm: regular rhythm Heart sounds: no murmurs GI Palpation (GI): Soft to palpation and nontender Auscultation: normal bowel sounds General: Yes no CVA tenderness Back/Spine/Pelvis Back: no CVA tenderness Cervical Spine: Cervical spine tenderness (mild) Thoracic/Lumbar Spine: paraspinal muscle tenderness on the right in the lower lumbar and lumbar spinal tenderness Skin Rashes: no rashes Extrem General: Yes no clubbing, cyanosis or edema Left upper extremity: shoulder/upper arm Details: tenderness Location: of the A-C joint Left lower extremity: hip/thigh Details: tenderness and knee Details: tenderness (increased); no swelling Results Reviewed Results Reviewed: Laboratory Tests 04/13/24 09:02 WBC 11.2 H Hgb 11.3 L Hct 35.2 L Plt Count 344 Sodium 141 Potassium 3.8 Creatinine 0.59 Estimated GFR > 60 Fasting Glucose 123 H Hemoglobin A1c % 6.9 H Calcium 8.5 D AST 41 H ALT 20 Triglycerides 69 Cholesterol 122 LDL Cholesterol, Calc 67 HDL Cholesterol 42 Vitamin B12 1114 H 25-OH Vitamin D Total 43.9 Folate 15.2 TSH 1.00 Coding Level of Care Code Est Pt Level 4 (87608) Diagnoses Type 2 diabetes mellitus with diabetic polyneuropathy, with long-term current use of insulin E11.42; Z79.4 Diabetes mellitus rat exterminator insulin use: with long-term use Coronary artery disease involving [place] coronary artery of [place] heart without angina pectoris I25.10 Coronary Disease-Associated Artery/Lesion type: [place] artery [place] vs. 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 Carcinoid tumor malignancy status: malignant Carcinoid tumor location: lung Moderate persistent asthma with acute exacerbation J45.41 Asthma severity: moderate Asthma persistence: persistent Asthma complication type: with acute exacerbation Obstructive sleep apnea G47.33 Gastroesophageal reflux disease without esophagitis K21.9 Esophagitis presence: without esophagitis Vitamin D deficiency E55.9 Vitamin B12 deficiency E53.8 Degeneration of intervertebral disc of lumbar region with discogenic back pain M51.360 Disc-related pain type: discogenic back pain only Primary osteoarthritis, unspecified site M19.91 Osteoarthritis location: unspecified site Osteoarthritis type: primary Fibromyalgia M79.7 Elevated LFTs R79.89 Anxiety F41.9 Episode of recurrent major depressive disorder, unspecified depression episode severity F33.9 Depression Type: major depressive disorder Major depression recurrence: recurrent Active/Remission status: currently active Major depression episode severity: unspecified Morbid obesity with BMI of 40.0-44.9, adult E66.01; Z68.41 Additional Codes PHQ-9 - 10140 - PHQ-9 Billing: Yes ([id number]) Assessment & Plan Assessment & Plan (1) Type 2 diabetes mellitus with diabetic polyneuropathy: Code(s): E11.42 - Type 2 diabetes mellitus with diabetic polyneuropathy Category: Medical Qualifiers: Diabetes mellitus long-term insulin use: with rat exterminator use Qualified Code(s): E11.42 - Type 2 diabetes mellitus with diabetic polyneuropathy; Z79.4 - keno terminal operator (current) use of insulin Plan: Her HgbA1c was at 6.9% on her labs done earlier today (was previously at 7.9% a few months ago) - goal is <7.0% Reinforced diabetic diet Continue Metformin 500 mg QD and Trulicity 3 mg SQ once a week Follow up with endocrinology as scheduled (2) Coronary artery disease: Code(s): I25.10 - Atherosclerotic heart disease of [place] coronary artery without angina pectoris Category: Medical Qualifiers: Coronary Disease-Associated Artery/Lesion type: [place] artery [place] vs. transplanted heart: [place] heart Associated angina: without angina Qualified Code(s): I25.10 - Atherosclerotic heart disease of [place] coronary artery without angina pectoris Plan: S/P cardiac cath in 07/2018, which revealed (+) very mild coronary disease and recommend continuing medical therapy only Continue aggressive risk factor reduction and low dose Aspirin 81 mg QD Echocardiogram done with cardiology in November 2022 revealed normal LV systolic function with EF between 65 to 70%, normal diastolic function, normal left atrial size, normal RV systolic function, no evidence of aortic stenosis but (+) mild to moderate MR is present Follow up with cardiology as scheduled (3) Pure hypercholesterolemia: Code(s): E78.00 - Pure hypercholesterolemia, unspecified Category: Medical Plan: Results of her labs done earlier this morning reviewed and discussed with patient Reinforced low cholesterol diet Continue Atorvastatin 40 mg QD Will recheck her labs and fasting lipids in 4 months for follow up (4) Benign essential hypertension: Code(s): I10 - Essential (primary) hypertension Category: Medical Plan: Reinforced low sodium diet - goal is systolic BP of 120 mm or less Continue Valsartan 320 mg QD, Metoprolol ER 50 mg QD and HCTZ 25 mg QD (5) Carcinoid tumor: Comment: (S/P RUL lobectomy at [facility] - 08/2016) Code(s): D3A.00 - Benign carcinoid tumor of unspecified site Category: Medical Qualifiers: Carcinoid tumor malignancy status: malignant Carcinoid tumor location: lung Qualified Code(s): 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 Waggoner on 09/02/[address] done in September 2020, August 2021 and October 2022 showed stable findings with (+) pulmonary nodules that appear benign Her chest CT done on 10/18/2023 at [facility] showed an apparently growing or new right upper lobe pulmonary nodule measuring 6 mm in size (the largest nodule that she had there a year ago was only about 3 mm in size) She underwent repeat CT in January 2024 for follow up - the pulmonary nodule appears smaller at around 4 mm and stable Follow up with pulmonary and Dr. Waggoner and oncology as scheduled for continuing surveillance (6) Asthma: Code(s): J45.909 - Unspecified asthma, uncomplicated Category: Medical Qualifiers: Asthma severity: moderate Asthma persistence: persistent Asthma complication type: with acute exacerbation Qualified Code(s): J45.41 - Moderate persistent asthma with (acute) exacerbation Plan: Continue Flovent HFA 220 mcg 1 inhalation BID, Stiolto Respimat 2.5-2.5 mcg 2 inhalations QD, Albuterol HFA 2 inhalations Q 6 hours PRN and updraft treatments with Ipratropium-Albuterol 0.5-3 mg/3 ml QID PRN Continue Montelukast 10 mg QD and Loratadine 10 mg QD PRN Continue Azithromycin MWF for prophylactic Tx - started by pulmonary Follow up with pulmonary as scheduled (7) Obstructive sleep apnea: Code(s): G47.33 - Obstructive sleep apnea (adult) (pediatric) Category: Medical Plan: In-lab sleep study done at [facility] revealed (+) moderate degree of sleep apnea She reportedly had an elevated [place] score of 11/24 She also has significant trigeminy and PVCs on cardiac tracing, likely from her untreated sleep apnea She was started on APAP by pulmonary a couple of months ago Follow up with pulmonary and Sleep Medicine as scheduled (8) GERD (gastroesophageal reflux disease): Code(s): K21.9 - Gastro-esophageal reflux disease without esophagitis Category: Medical Qualifiers: Esophagitis presence: without esophagitis Qualified Code(s): K21.9 - Gastro-esophageal reflux disease without esophagitis Plan: Dietary restrictions reinforced Continue Dexlansoprazole 60 mg QD Follow up with GI as scheduled (9) Vitamin D deficiency: Code(s): E55.9 - Vitamin D deficiency, unspecified Category: Medical Plan: Continue Vitamin D3 2000 units QD (10) Vitamin B12 deficiency: Code(s): E53.8 - Deficiency of other specified B group vitamins Category: Medical Plan: Her B12 level has decreased slightly from previous but is still overcorrected (>1100) Continue Vitamin B12 tablets 1000 mcg BIW Will recheck her B12 level in 4 months for follow up (11) Lumbar degenerative disc disease: Code(s): M51.36 - Other intervertebral disc degeneration, lumbar region Category: Medical Qualifiers: Disc-related pain type: discogenic back pain only Qualified Code(s): M51.360 - Other intervertebral disc degeneration, lumbar region with discogenic back pain only Plan: Reinforced activity and weight-lifting restrictions Continue Tizanidine 4 mg TID PRN and Tramadol 50 mg TID PRN for pain Continue Lidocaine 5% patches QD PRN - Rx refilled (12) Osteoarthritis: Code(s): M19.90 - Unspecified osteoarthritis, unspecified site Category: Medical Qualifiers: Osteoarthritis location: unspecified site Osteoarthritis type: primary Qualified Code(s): M19.91 - Primary osteoarthritis, unspecified site Plan: Continue Tramadol 50 mg TID PRN for pain Follow up with rheumatology and pain management as scheduled (13) Fibromyalgia: Code(s): M79.7 - Fibromyalgia Category: Medical Plan: Continue Pregabalin 200 mg Q 8 hours and Tizanidine 4 mg TID PRN (14) Elevated LFTs: Code(s): R79.89 - Other specified abnormal findings of blood chemistry Category: Medical Plan: Her serum AST remains slightly elevated on her recent labs - is likely due to hepatosteatosis and patient is advised that losing weight should rectify this Will continue to monitor her LFTs regularly (15) Anxiety: Code(s): F41.9 - Anxiety disorder, unspecified Category: Medical Plan: Continue Lorazepam 1 mg BID-TID PRN (16) Depression: Code(s): F32.9 - Major depressive disorder, single episode, unspecified Category: Medical Qualifiers: Depression Type: major depressive disorder Major depression recurrence: recurrent Active/Remission status: currently active Major depression episode severity: unspecified Qualified Code(s): F33.9 - Major depressive disorder, recurrent, unspecified Plan: Continue Sertraline 50 mg QD (17) Morbid obesity with BMI of 40.0-44.9, adult: Code(s): E66.01 - Morbid (severe) obesity due to excess calories; Z68.41 - Body mass index [BMI] 40.0-44.9, adult Category: Medical Plan: Reinforced diet; exercise and weight loss are unrealistic given patient's multiple comorbidities and physical issues Plan Follow up in 4 months Orders: Orders Lipid Panel 4 Months E78.00 - Pure hypercholesterolemia, unspecified Hemoglobin A1c 4 Months E11.9 - Type 2 diabetes mellitus without complications TSH reflex Free T4 4 Months E78.00 - Pure hypercholesterolemia, unspecified Vitamin D 25-OH Total 4 Months E55.9 - Vitamin D deficiency, unspecified Complete Blood Count Auto Diff 4 Months D64.9 - Anemia, unspecified Comprehensive [place]. Panel Fast 4 Months E78.00 - Pure hypercholesterolemia, unspecified UA CC w/rflx Micro + Cult 4 Months R30.0 - Dysuria Microalbumin, Random (w Creat) 4 Months E11.9 - Type 2 diabetes mellitus without complications Vitamin B12 and Folate 4 Months E53.8 - Deficiency of other specified B group vitamins Medications: Refilled lidocaine 5% (Lidoderm) leave on most painful area for up to 12 hrs 1 patch topical DAILY 30 days 30 ea 3RF G89.29 - Other chronic pain, M54.50 - Low back pain, unspecified
--- OUTSIDE RECORDS SUMMARY | 2024-04-13 14:58 | XMS_ITS | Encounter Summary ---
Author Organization [facility] Address [address] [place] [address] Care Team Providers Care Poultry Grader Name Role Phone Leroy Jauregui MD Primary Care Provider Leroy Garcia MD Primary Care Provider Leroy Garcia MD Unavailable Unavailable Pratibha Waggoner MD Unavailable Encounter Details Date Type Department Care Team Description 04/26/2018 Release of Information Medical Records [address] [place] [id number] Abstract, Provider Social History Tobacco Use Types [...] on filedocumented in this encounter Care Teams Poultry Grader Relationship Specialty Start Date End Date Leroy Jauregui MD PCP - General Internal Medicine 04/21/18 11/10/21 Leroy Jauregui MD PCP - General Internal Medicine 11/11/21 Leroy Jauregui MD Internal Medicine 11/11/21 Pratibha Waggoner MD Lung Cancer Passenger Representative 12/28/22 documented as of this encounter
--- OUTSIDE RECORDS SUMMARY | 2024-04-13 14:58 | XMS_ITS | Clinical Summary ---
Author Organization [facility] Address [address] [place] [phone] Phone Care Team Providers Care Home Appraiser Name Role Phone Leroy Sanchez MD Primary Care Provider [phone] Allergies Active Allergy Reactions Criticality Noted Date [...] being seen in a pain clinic at [place]. Plan from our standpoint will be for a 1 year follow-up CT scan of the chest and a visit in this office after that. All questions were answered. This visit was done through the video paraprofessional interpreter services. 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); Pulmonary nodule 01/31/2024 Telephone Lung Screening Program - Home 299 [facility] [address] [place] [phone] Ally Villatoro [place] 01/26/2024 1:19 PM EST - 01/26/2024 11:59 PM EST Hospital Encounter [facility] CT Scan [address] [place] [phone] Malignant carcinoid tumor of lung (CMS/HCC) Discharge Disposition: Home or Self Care from Last 3 Months Surgical History Surgery Date Site/Laterality Comments TUBAL LIGATION PROCEDURE: HISTORICAL TUBAL LIGATION OTHER SURGICAL HISTORY 2017 PROCEDURE: LUNG BIOPSY THROUGH CHEST WALL Medical History Medical History Date Comments Hypertension 04/04/2012 DX:Hypertension Historical Medical DX 04/04/2012 DX:Hyperli pidemia LDL goal < 70 DM2 (diabetes mellitus, type 2) ([facility]) 04/04/2012 DX:DM2 (diabetes mellitus, t ype 2) ([facility]) Lumbar disc disease 04/04/2012 DX:Lumbar di sc disease Depression 04/04/2012 DX:Depression Anxiety 04/04/2012 DX:Anxiety Obesity 04/04/2012 DX:Obesity LBBB (left bundle branch block) 04/04/2012 DX:LBBB (left bundle branch block) Emphysema lung ([facility]) DX:Emph ysema lung ([facility]) Fibromyalgia DX:Fibromyalgia Arthritis DX:Arthritis Family History Medical [...] Signed Date: 01/27/2024 09:39 ET Workstation ID: [id number] Transcribed By: Self Edit Transcribed Date: 01/27/2024 [...] Signed Date: 01/27/2024 09:39 ET Workstation ID: [id number] Transcribed By: Self Edit Transcribed Date: 01/27/2024 09:30 ET Pratibha Waggoner MD IMG CT PROCEDURES * [facility] SCREENING DIGITAL (06/16/2023 11:59 AM EDT) Anatomical Region Laterality Modality Mammography 06/16/2023 10:3 6 AM EDT Narrative 06/16/2023 11:59 AM EDT [facility] Diagnostic Imaging Department [address] [place] [id number] Patient: ??PATO SAHU I ?/Age/Sex: 1955 - 67 - F Unit#: ??[id number] ? Location/Status: ??SPDIMAM/REG CLI ? Mnemonic/Ordering Site: ??DIGSC/SPMAM Ordering Physician: ??LEROY SANCHEZ MD [facility] Screening Digital - 06/16/23 - 1106 Report Status:Signed EXAM: [facility] Screening Digital EXAM DATE AND TIME: 06/16/2023 11:07 AM HISTORY: ??Annual screening COMPARISON: ??Multiple exams dating back to 2016 TECHNIQUE: Bilateral digital breast tomosynthesis was performed in the CC and MLO projections. Computer aided detection with VocoMD 3D 3.1 was employed. TISSUE DENSITY: b. [...] Procedure Note Wally Moeller MD - 11/01/2023 [facility] Diagnostic Imaging Department [address] [place] [id number] Patient: PATO SAHU Nikki /Age/Sex: 1955 - 67 - F Unit#: [id number] [facility]Ordering Site[facility] Ordering Physician: LEROY SANCHEZ MD [facility] Screening Digital - 06/16/23 - 1106 Report Status:Signed EXAM: [facility] Screening Digital EXAM DATE AND TIME: 06/16/2023 11:07 AM HISTORY: Annual screening COMPARISON: Multiple exams dating back to 2016 TECHNIQUE: Bilateral digital breast tomosynthesis was performed in the CCand MLO projections. Computer aided detection with VocoMD 3D 3.1was employed. TISSUE DENSITY: b. There [...] Recently Relevant to Health Maintenance Care Teams Home Appraiser Relationship Specialty Start Date End Date Leroy Sanchez MD [address] RAN Suarez PCP - General Internal Medicine 11/27/11
--- OUTSIDE RECORDS SUMMARY | 2024-04-13 14:58 | XMS_ITS | Encounter Summary ---
Author Organization [facility] Address [address] [place] [address] Care Team Providers Care Gasoline Power Shovel Operator Name Role Phone Leroy Jauregui MD Primary Care Provider Leroy Garcia MD Unavailable Unavailable Pratibha Waggoner MD Unavailable Encounter Details Date Type Department Care Team Description 11/27/2022 Room Service Clerk Report [facility] Thoracic Surgery [place] 299 [facility] [address] [place] [phone] Pratibha Waggoner MD 299 [facility] [place] [address] [place] [id number] Social History Tobacco Use Types Packs/Day Years [...] on filedocumented in this encounter Care Teams Gasoline Power Shovel Operator Relationship Specialty Start Date End Date Leroy Jauregui MD PCP - General Internal Medicine 11/11/21 Leroy Jauregui MD Internal Medicine 11/11/21 Pratibha Waggoner MD Lung Cancer Cotton Candy Maker 12/28/22 documented as of this encounter
--- OUTSIDE RECORDS SUMMARY | 2024-04-13 14:58 | XMS_ITS | Encounter Summary ---
Author Organization [facility] Address [address] [place] [address] Care Team Providers Care Geophysical Laboratory Director Name Role Phone Leroy Jauregui MD Primary Care Provider Leroy Garcia MD Primary Care Provider Leroy Garcia MD Unavailable Unavailable Pratibha Waggoner MD Unavailable Reason for Visit * Reason Onset Date Comments Sleep Study 04/21/2018 Encounter Details Date Type Department Care Team Description 04/21/2018 Telephone Pulmonology - [place] [address] [facility] [address] [place] [address] Angelo Hoffmann MD Sleep Study Social History Tobacco Use Types Packs/Day Years Used Date Smoking Tobacco: Former Smokeless Tobacco: Never Alcohol Use Standard Drinks/Week Comments No 0 (1 standard drink = 0.6 oz pur e alcohol) Sex Assigned at Date Recorded Not on file documented as of this encounter Miscellaneous Notes * Telephone Encounter - Angelo Hoffmann MD - 04/21/2018 4:59 PM EST [facility] Let her know that the patient needs to get help setting up for hersupplies for her cpap. Have lucas call her to make sure she is all set. documented in this encounter Plan of Treatment Not on file documented as of this encounter Visit Diagnoses Not on filedocumented in this encounter Care Teams Geophysical Laboratory Director Relationship Specialty Start Date End Date Leroy Jauregui MD PCP - General Internal Medicine 04/21/18 11/10/21 Leroy Jauregui MD PCP - General Internal Medicine 11/11/21 Leroy Jauregui MD Internal Medicine 11/11/21 Pratibha Waggoner MD Lung Cancer Theatre Manager 12/28/22 documented as of this encounter
--- OUTSIDE RECORDS SUMMARY | 2024-04-13 14:58 | XMS_ITS | Encounter Summary ---
Author Organization [facility] Address [address] [place] [address] Care Team Providers Care Transit Coach Operator Name Role Phone Leroy Jauregui MD Primary Care Provider Consuelo Schaefer MD Primary Care Provider Leroy Cevallos MD Primary Care Provider Leroy Garcia MD Primary Care Provider Leroy Garcia MD Unavailable Unavailable Pratibha Waggoner MD Unavailable Reason for Visit * Reason Onset Date Comments Nuclear Stress Testing 07/19/2012 Encounter Details Date Type Department Care Team Description 07/19/2012 Telephone Cardiology - [place] [address] [place], [place] [phone] Rosalie Atkinson, YRIS [address] [place], [place] [phone] Nuclear Stress Testing Social History Tobacco Use Types Packs/Day Years Used Date Smoking Tobacco: Never Alcohol Use Standard Drinks/Week Comments Not Asked 0 (1 standard drink = 0.6 oz pur e alcohol) Sex Assigned at Date Recorded Not on file documented as of this encounter Miscellaneous Notes * Telephone Encounter - Mary Ellen Pena - 07/19/2012 11:39 AM EDT FYI: This patient no showed the resting 5-6 and the nuclear on 5-7 We are removing the order from our report documented in this encounter Plan of Treatment Not on file documented as of this encounter Visit Diagnoses Not on filedocumented in this encounter Care Teams Transit Coach Operator Relationship Specialty Start Date End Date Leroy Jauregui MD PCP - General Internal Medicine 11/27/11 05/17/17 Consuelo Plaza MD PCP - General Internal Medicine 05/18/17 04/20/18 Leroy Jauregui MD PCP - General Internal Medicine 04/21/18 11/10/21 Leroy Jauregui MD PCP - General Internal Medicine 11/11/21 Leroy Jauregui MD Internal Medicine 11/11/21 Pratibha Waggoner MD Lung Cancer Banquet Lead 12/28/22 documented as of this encounter
== END 2024-04-13 12:28 | disposition home or self-care (01) ==
PROVIDERS: PCP Internal Medicine; Visit Provider Internal Medicine
DX: E11.42 Type 2 diabetes mellitus with diabetic polyneuropathy (principal); Z79.4 Long term (current) use of insulin; C7A.090 Malignant carcinoid tumor of the bronchus and lung; F33.9 Major depressive disorder, recurrent, unspecified; E66.01 Morbid (severe) obesity due to excess calories; Z68.41 Body mass index [BMI] 40.0-44.9, adult; I25.10 Atherosclerotic heart disease of native coronary artery without angina pectoris; I10 Essential (primary) hypertension; E78.00 Pure hypercholesterolemia, unspecified; J45.41 Moderate persistent asthma with (acute) exacerbation; G47.33 Obstructive sleep apnea (adult) (pediatric); K21.9 Gastro-esophageal reflux disease without esophagitis

== ENCOUNTER 2024-05-01 10:18 | Outpatient (REF) | payer MEDICARE, MEDICAID, SELFPAY ==
--- NOTE | ~2024-05-01 | US_ITS ---
EXAMINATION: US COMPLETE ABDOMEN WITH LIVER ELASTOGRAPHY CLINICAL INFORMATION: Abnormal blood chemistry. COMPARISON: None available. TECHNIQUE: Real-time imaging of the abdominal viscera. Noninvasive ultrasound liver fibrosis assessment is performed using Roxana ElastPQ point quantification shear wave elastography (pSWE) with a C5-2 MHz transducer. Multiple elastography samples are obtained. FINDINGS: PANCREAS: The visualized pancreatic head and body are normal in appearance. The remainder of the pancreas is obscured from visualization by the overlying bowel gas. ABDOMINAL AORTA: No aortic aneurysm is seen. INFERIOR VENA CAVA: Visualized portions are normal. LIVER: The liver demonstrates normal size, contour and echogenicity. Normal contour. No focal lesion or intrahepatic biliary duct dilatation. The right lobe measures 15.0 cm in length. The left lobe measures 12.0 cm in length. Portal flow is towards the liver (hepatopetal). Shear wave liver elastography median stiffness is 1.58 m/s (reference: normal median stiffness is 1.3 m/s or less). IQR/median stiffness to assess sampling precision is 0.21 (reference: good quality data set is IQR/median stiffness of 0.15 or less). GALLBLADDER: Gallbladder demonstrates intraluminal shadowing gallstones. No wall thickening, pericholecystic fluid, or other abnormality. Negative sonographic Remy sign. COMMON BILE DUCT: Normal in caliber measuring 0.3 cm in diameter. RIGHT KIDNEY: No hydronephrosis. No renal calculi or focal parenchymal lesions. The kidney measures 11.8 cm in maximum dimension. LEFT KIDNEY: No hydronephrosis. No renal calculi or focal parenchymal lesions. The kidney measures 10.6 cm in maximum dimension. SPLEEN: Unremarkable. The spleen measures 7.6 cm in maximum dimension. FREE FLUID: None seen. US/US abdomen comp w elastography IMPRESSION: 1. Normal-appearing liver without focal lesion. 2. Liver elastography: Although measurements appear to rule out compensated advanced chronic liver disease, there is statistical variability of the sampling which decreases accuracy. 3. Cholelithiasis. 4. Remainder of the examination is normal. REFERENCE: Society of Radiologists in Ultrasound Liver Stiffness Thresholds (2020): LIVER STIFFNESS THRESHOLDS: *Liver Stiffness equal or less than 1.3 m/s: High probability of being normal. *Liver Stiffness less than 1.7 m/s: In the absence of other known clinical signs, rules out compensated advanced chronic liver disease. *Liver Stiffness 1.7-2.1 m/s: Suggestive of compensated advanced chronic liver disease but need further test for confirmation. *Liver Stiffness over 2.1 m/s: Rules in compensated advanced chronic liver disease. *Liver Stiffness over 2.4 m/s: Suggestive of clinically significant portal hypertension. QUALITY OF DATA SET: *IQR/Median value equal or less than 0.15 implies a quality data set. *IQR/Median value over 0.15 implies a poor quality data set. SIGNIFICANT CHANGE FROM PRIOR EXAM: Significant change if liver stiffness measurement is 10% or greater from prior exam. OTHER CONSIDERATIONS: The stage of liver fibrosis may be overestimated in the setting of acute hepatitis, liver inflammation, elevated liver function tests, hepatic vascular congestion, obstructive cholestasis, non-fasting state, and infiltrative diseases such as amyloidosis and lymphoma. In some patients with NAFLD, the liver stiffness thresholds for compensated advanced chronic liver disease may be lower. In causes other than viral hepatitis and NAFLD, liver stiffness thresholds are not well established. Electronically signed by: Gideon Amin MD 05/02/2024 10:29 AM MASSIEL
--- OUTSIDE RECORDS SUMMARY | 2024-05-01 10:21 | XMS_ITS | Clinical Summary ---
Author Organization [facility] Address [address] [place] [phone] Phone Care Team Providers Care Relations Specialist Name Role Phone Leroy Sanchez MD Primary Care Provider Allergies Active Allergy Reactions Criticality Noted Date Comments Nitrofurantoin 12/23/2023 Medications nystatin (MYCOSTATIN) ointment Apply to affected twice a day for 10 days 2 Active alcohol swabs pads, medicated 1 PAD TOPICAL TIA VECES AL D A 0 Active amitriptyline (ELAVIL) 25 mg tablet TOME ERICA TABLETA POR V A ORAL AL ACOSTARSE 1 Active amoxicillin-cla vulanate (AUGMENTIN) 875-125 mg per tablet 1 Active atorvastatin (LIPITOR) 40 mg tablet TOME ERICA TABLETA TODOS LOS D 1 Active DULoxetine (CYMBALTA) [address] capsule TAKE 60 MG POR V A ORAL DAILY 0 Active FLUoxetine (PROzac) 10 mg capsule TOME ERICA C PSULA TODOS LOS D 1 Active blood sugar diagnostic (FreeStyle Lite Strips) test strip 1 Strip 3 times daily. 1 Active ibuprofen (ADVIL,MOTRIN) 800 mg tablet PLEASE SEE ATTACHED FOR DETAILED DIRECTIONS 1 Active liraglutide (Victoza 2-Zeus) 0.6 mg/0.1 mL (18 mg/3 mL) injection Inject 1.8 mg under the skin 1 (one) time each day. 0 Active loratadine (CLARITIN) 10 mg tablet TOME ERICA TABLETA TODOS LOS D CUANDO SEA NECESARIO 1 Active LORazepam (ATIVAN) 1 mg tablet TAKE 1 TABLET BY MOUTH AT NIGHT NEEDED AND 1/2 IN THE DAY NEEDED 1 Active metFORMIN (GLUCOPHAGE) 500 mg tablet TOME ERICA TABLETA DOS VECES AL D A 1 Active metoprolol succinate (TOPROL-XL) 50 mg 24 hr tablet TOME ERICA TABLETA DOS LOS D 1 Active sertraline (ZOLOFT) 100 mg tablet TOME ERICA TABLETA S LOS D 1 Active valsartan (DIOVAN) 320 mg tablet TAKE 320 MG POR V A ORAL DAILY 0 Active predniSONE (DELTASONE) 10 mg tablet 1 Active clotrimazole-be tamethasone (LOTRISONE) 1-0.05 % cream Apply topically to affected area twice daily for no more than 10 days 0 Active fluticasone propionate (FLOVENT HFA INHL) Active albuterol HFA (PROAIR HFA ; PROVENTIL HFA ; VENTOLIN HFA) 90 mcg/actuation inhaler Inhale 2 Puffs into the lungs every 4 hours as needed for Wheezing for up to 90 days. 9 Active montelukast (SINGULAIR) 10 mg tablet Active azithromycin (ZITHROMAX) 250 mg tablet 1 TABLET BY MOUTH Wednesday AND Wednesday 8 Active pregabalin (LYRICA) 100 mg capsule Take 1 capsule (100 mg total) by mouth 3 (three) times a day. Active fluticasone propionate (FLONASE) 50 mcg/actuation nasal spray Administer 2 sprays into each nostril 1 (one) time each day. Active dexlansoprazole (DEXILANT) [address] capsule Take by mouth. A ctive FLUoxetine (PROzac) 10 mg tablet Take 1 [...] mouth 1 (one) time each day. Active hydroCHLOROthia zide (HYDRODIURIL) 25 mg tablet Take 1 tablet [...] being seen in a pain clinic at [place]. Plan from our standpoint will be for a 1 year follow-up CT scan of the chest and a visit in this office after that. All questions were answered. This visit was done through the video parent coach services. 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); Pulmonary nodule 01/31/2024 Telephone Lung Screening Program - [address] [phone] Ally Villatoro MA from Last 3 Months Surgical History Surgery Date Site/Laterality Comments TUBAL LIGATION PROCEDURE: HISTORICAL TUBAL LIGATION OTHER SURGICAL HISTORY 2017 PROCEDURE: LUNG BIOPSY THROUGH CHEST WALL Medical History Medical History Date Comments Hypertension 04/04/2012 DX:Hypertension Historical Medical DX 04/04/2012 DX:Hyperli pidemia LDL goal < 70 DM2 (diabetes mellitus, type 2) (CMS/HCC) 04/04/2012 DX:DM2 (diabetes mellitus, t ype 2) ([facility]) Lumbar disc disease 04/04/2012 DX:Lumbar di sc disease Depression 04/04/2012 DX:Depression Anxiety 04/04/2012 DX:Anxiety Obesity 04/04/2012 DX:Obesity LBBB (left bundle branch block) 04/04/2012 DX:LBBB (left bundle branch block) Emphysema lung (CMS/HCC) DX:Emph ysema lung (HCC) Fibromyalgia DX:Fibromyalgia Arthritis DX:Arthritis Family History Medical History Relation Name Comments Coronary artery disease Other fami ly members, no early cad Relation Name Status Comments Other Social History Tobacco Use Types Packs/Day Years Used Date Smoking Tobacco: Former Smokeless Tobacco: Never Tobacco Cessation:Counseling Given: Not Answered Alcohol Use Standard Drinks/Week Comments No 0 (1 standard drink = 0.6 oz pur e alcohol) Comments Unknown Sex and Gender Information Value Date Recorded Sex Assigned at Not on file Legal Sex Female 12:37 PM EST Gender Identity Not on file Sexual Orientation Not on file Obstetrics History Last Filed [...] 05/11/2025 05/11/2015, 04/16/2015 Breast Cancer Screening 06/15/2025 06/16/19 24, 06/11/2022, 06/02/2021, Additional history exists Pneumococcal Vaccine: 50+ Years Completed 09/19/2021, 01/11/2020 Zoster Vaccines Completed [...] patient's age to complete this topic Meningococcal B Vacine Aged Out No lo nger eligible based on patient's age to complete this topic RSV Immunization Patients Under 20 months Aged Out No longer eligible based on patient's age to complete this topic Varicella Vaccines Aged Out No longer eligible based on patient's age to complete this topic Procedures Procedure Name Priority Date/Time Associated Diagnosis Comments [facility] SCREENING DIGITAL Routine 06/16/2023 11:59 AM EDT Encounter for screening mammogram for malignant neoplasm of breast from Last 3 Months or Most Recently Relevant to Health Maintenance Results * [facility] SCREENING DIGITAL (06/16/2023 11:59 AM EDT) Anatomical Region Laterality Modality Mammography 06/16/2023 10:3 6 AM EDT Narrative 06/16/2023 11:[address] [facility] Diagnostic Imaging Department [address] [place] [address] Patient: ??PATO SAHU I ?/Age/Sex: 1955 - - F Unit#: ??[id number] ? Location/Status: ??SPDIMAM/REG CLI ? Mnemonic/Ordering Site: ??DIGSC/SPMAM Ordering Physician: ??LEROY SANCHEZ MD [facility] Screening Digital - 06/16/23 - 1106 Report Status:Signed EXAM: [facility] Screening Digital EXAM DATE AND TIME: 06/16/2023 11:07 AM HISTORY: ??Annual screening COMPARISON: ??Multiple exams dating back to 2016 TECHNIQUE: Bilateral digital breast tomosynthesis was performed in the CC and MLO projections. Computer aided detection with WordWatch 3D 3.1 was employed. TISSUE DENSITY: b. [...] screening mammogram BILATERAL in 1 year. 3341F, 7064F Dictating Physician: ??WALLY MOELLER MD Electronically Signed by: ??WALLY MOELLER MD Dic Date/Time: ??06/16/23 1158 Sign date/Time: ??06/16/23 1159 Procedure Note Wally Moeller MD - 11/01/2023 [facility] Diagnostic Imaging Department [address] [place] [address] Patient: PATO SAHU Nikki /Age/Sex: 1955 - 67 - F Unit#: [id number] Location/Status: [facility] CLI Mnemonic/Ordering Site: [facility] Ordering Physician: LEROY SANCHEZ MD [facility] Screening Digital - 06/16/23 - 1106 Report Status:Signed EXAM: [facility] Screening Digital EXAM DATE AND TIME: 06/16/2023 11:07 AM HISTORY: Annual screening COMPARISON: Multiple exams dating back to 2016 TECHNIQUE: Bilateral digital breast tomosynthesis was performed in the CCand MLO projections. Computer aided detection with WordWatch 3D 3.1was employed. TISSUE DENSITY: b. There [...] 1159 Leroy Sanchez MD IMG BI PROCEDURES Final Resu lt from Last 3 Months or Most Recently Relevant to Health Maintenance Insurance [employer] MEDICARE ADVANTAGE MEDICAID - [place] Care Teams Relations Specialist Relationship Specialty Start Date End Date Leroy Sanchez MD [address] [place] [address] [address] RAN Suarez PCP - General Internal Medicine 11/27/11
== END 2024-05-01 10:19 | disposition home or self-care (01) ==
LOC: HO.US 10:18
PROVIDERS: PCP Internal Medicine; Visit Provider Physician Assistant
DX: R79.89 Other specified abnormal findings of blood chemistry (principal)
CPT/HCPCS: 76700; 76981

== ENCOUNTER → 2024-05-01 10:20 | Outpatient (BNV) | payer MEDICARE, MEDICAID, SELFPAY | PROVIDERS: PCP Internal Medicine; Visit Provider Radiology Diagnostic Radiology | DX: R79.89 Other specified abnormal findings of blood chemistry (principal) | CPT/HCPCS: 76700 ==

== ENCOUNTER 2024-05-02 11:00 | Outpatient (AMB) | payer MEDICARE, MEDICAID, SELFPAY ==
[2024-05-02 11:18] VITALS: BP 126/64; PULSE 74; O2SAT 99; BMI 39.8
--- NOTE | 2024-05-02 11:18 | A.OFFVIS_ITS ---
Vital Signs 05/02/24 11:18 Height 5 ft 1 in Weight 210 lb 8.663 oz BMI 39.8 BP 126/64 Blood Pressure Location Rt brachial Position Sitting Pulse 74 Pulse Source Pulse Oximeter Pulse Oximetry (%) 99 Oxygen Delivery Method Room Air Intake Visit Reasons: COPD Allergies penicillin G Allergy (Severe, Verified 04/13/24 12:14) Itching latex Allergy (Intermediate, Verified 04/13/24 12:14) Itching nitrofurantoin Allergy (Intermediate, Verified 04/13/24 12:14) itching and redness (in the legs) HPI Comments Details: The patient is a 68-year-old woman known carcinoid tumor status post resection. The patient also has a history of asthma and obstructive sleep apnea. She has been using the new respironic dream station. She is using more than 4 hours a night. However, she has not gotten any supplies. I did call her [employer] company and sent they will facilitate some supplies. In the meantime I did provide her mask F30 that she can try. Her asthma appears to be stable with the current respiratory medications. She has not had to use her rescue inhaler and she has not to use prednisone. She has been complaining of some discomfort over the right flank area. 03/25/2023 the patient is here for pulmonary follow-up visit. Overall she is doing better. She did complain the prednisone and the antibiotics during the last visit. Her chest discomfort is better. We did discuss and review the images from her last CT scan back in September 2022 with stable postoperative changes stable pulmonary nodules. She is due for repeat CT scan in September 2023. she continues use respiratory therapy with good effect. Her sleeping is overall better. again, her sleep study did not demonstrate any sleep apnea. She is using the Stiolto in the Flovent. These inhalers have been effective. Her respiratory exam is reassuring. The patient continues to do well will consider minimizing the inhaled steroid component. 08/05/2023 the patient is here for a pulmonary follow-up visit. The patient is still no better. She is still coughing. She had called a few weeks ago and I did send her a course of doxycycline. She did not feel like she completely improved she still having hard time with cough. Moderate severity. Denies any wheezing or chest tightness. She denies any fevers or chills. In addition to that she has been complaining of significant daytime drowsiness. She had been on CPAP before we had gotten multiple sleep studies but they have been negative for any sleep apnea. Although these were home sleep studies and the patient was not able to adequately sleep well during the study. She does have an elevated Nolan score of 13/24. She does have cardiovascular risk factors. She also carries a diagnosis of sleep apnea. Will go ahead and request a repeat in-lab sleep study in order to get her back on CPAP. The patient also been followed closely for carcinoid lung cancer. The patient also has multiple pulmonary no dules that are being followed. Her last CT scan was 11/01/2022 and she is due for CT scan in 2023. Will go ahead and follow up with the patient after her CT scan in her sleep study. In the meantime will send her a 2nd course of antibiotics to treat her for bronchitis. She does not have any wheezing so therefore hold off on any prednisone. 11/11/2023 the patient is here for a pulmonary follow-up visit. The patient was in her usual state health until the last few months. She has not been feeling well she has had this productive cough now for several months. The last time she was here she was given Vantin but she did not feel like it helped. She still bringing up phlegm usually whitish or yellowish in color. Denies any hemoptysis. Typically sounds barky in nature. She has not underlying chronic bronchitis. Will going to go ahead and start her on azithromycin 3 times a week. In addition to that if she is no better she will get a sputum culture. She did have a CT scan of the chest done recently done on 10/18/2023 [facility]. It appears that she has a growing or new right upper lobe pulmonary nodule measuring 6 mm in size. The largest nodule that she had there a year ago was only 3 mm in size. Therefore, she is scheduled to go for repeat CT scan in 3-6 months. She will do that at [facility] as well. We did talk about the relevance of that. In the meantime will go ahead and treat her for the chronic bronchitis. She will continue with respiratory therapy. 12/23/2023 the patient is here for a pulmonary follow-up visit. She continues to have significant daytime drowsiness. Her Nolan score is elevated 12/24. She was scheduled for the sleep study but then she had to reschedule. She has a new date sometime in January. The patient also has been having issues with a productive cough. She did complete the antibiotics and her mucus is clear but she still having significant chest congestion. Moderate severity. The only thing that helps her is when she goes on prednisone. Explained to her the concerns about using prednisone and worsening her other comorbidities. Therefore based on her chronic bronchitis and her frequent use of prednisone she will be a perfect candidate for Daliresp. We did talk about the adverse effects. Will go ahead and start her on the 500 mcg dose but she started every other day or so to get used to it. The patient also will be provided some prednisone case she gets worse but she should hold off for now. In addition to that she was found to have a new nodule back in October at [facility] was a 6 mm nodule. She is scheduled to have a repeat CT scan at [facility] in January. 05/02/2024 the patient is here for a pulmonary follow-up visit. Overall the patient has been doing well. She did start azithromycin 3 times a week and seems to be controlling her cough and chest congestion. Therefore will continue. She will need to get an EKG. In addition to that she did have a CT scan of the chest done in [facility]. Demonstrating that the 6 mm nodule decreased down to 4 mm in the other nodules are stable. She has not reticular changes likely postoperative changes which are not significant and done appear to be progressive. In addition to that she is struggling with CPAP. She is trying to use it but she does not feel like her mask is comfortable. I did call [facility] to see if they can switch her mask to an N20 mask. She will take it to her next appointment with [facility] to try to have some additional teachings in order to be able to be effective in using her CPAP. She needs to be able to use it 4 hours daily. She will follow-up in 3-4 months if she has any issues prior to that she will call for an earlier assessment. He [facility] Medical History Frozen shoulder Frequent fecal incontinence Stool incontinence Osteoarthritis Chest pain Calcific tendinitis of left shoulder Weakness of left upper extremity Weakness of both lower extremities Joint pain in fingers of both hands Joint pain in both hands Bilateral knee pain Vitamin B12 deficiency Bilateral ankle pain Rash Right foot pain Medicare annual wellness visit, subsequent Cervical cancer screening Bronchopneumonia Chronic low back pain Bilateral foot pain Bilateral hip pain Annual physical exam Hyperlipidemia LDL goal <70 Bilateral hip pain Fibromyalgia Chronic bronchitis Vitamin D deficiency Post-thoracotomy pain syndrome COPD (chronic obstructive pulmonary disease) Depression Anxiety Type 2 diabetes mellitus with diabetic polyneuropathy Pulmonary nodules Allergic rhinitis GERD (gastroesophageal reflux disease) Morbid obesity with BMI of 40.0-44.9, adult Asthma Obstructive sleep apnea Lumbar degenerative disc disease Carcinoid tumor Coronary artery disease Benign essential hypertension Type 2 diabetes mellitus with hyperglycemia, with long-term current use of insulin Surgical History History of colonoscopy (~12/2013) History of tubal ligation History of lung biopsy (~07/2016) History of esophagogastroduodenoscopy (EGD) (~10/2011) History of lobectomy of lung (~08/2016) History of rectal sphincterotomy (~11/2013) History of cardiac cath (~07/2018) Family History Father Stroke Hypertension Diabetes Mother Diabetes Hypertension Other Arthritis Lupus Social History Household Members: Spouse Housing: Apartment Alcohol intake: never Patient Tobacco Use Status: Former Tobacco user Tobacco use type: Cigarette e-Cigarette/Vaping Use: Never Used Second Hand Smoke Exposure: Yes service: No Current occupational status: disabled Cognitive needs: No Hearing needs: No Vision needs: Yes Review of Systems Const Reports difficulty sleeping, Denies fatigue, Denies fever(s), Denies night sweats, Denies poor appetite, Reports snoring and Denies weight loss ENT Reports Normal hearing present, Denies dental pain, Denies dysphagia, Denies hearing loss, Denies mouth pain, Denies odynophagia, Denies throat swelling, Denies tongue swelling and Reports other (Dentition adequate) Card Denies chest pain and Reports dyspnea on exertion Resp Reports change in phlegm color, Reports chest congestion, Reports cough, Reports dyspnea on exertion, Reports snoring and Reports wheezing GI Denies abdominal pain, Denies melena, Reports bloating, Denies hematochezia, Denies constipation, Denies GI cramping, Denies dysphagia, Denies excessive flatus, Denies early satiety, Reports heartburn, Denies nausea, Denies odynophagia, Denies vomiting and Denies hematemesis Musc Reports no additional complaints and Reports myalgias Skin/Breast Denies pruritus, Denies lesions, Denies rash and Denies jaundice Neuro Reports Normal hearing present and Denies Abnormal speech present Endo Denies fatigue Aller/Immun Denies throat swelling, Denies tongue swelling and Reports wheezing Physical Exam Vital Signs: Last Vital Signs Pulse 74 05/02/24 11:18 BP 126/64 05/02/24 11:18 Pulse Ox 99 05/02/24 11:18 Oxygen Delivery Method Room Air 05/02/24 11:18 BMI result Body Mass Index 39.8 Const Orientation/consciousness: patient oriented x3 Neck Thyroid: Thyroid normal Lymphatic: no lymphadenopathy noted Resp Effort & Inspection: normal respiratory effort Auscultation: diminished lung sounds Cardio Rate: regular rate Rhythm: regular rhythm Heart sounds: S1 normal heart sound present and S2 normal heart sound present Skin General skin exam: no rashes or lesions noted Neuro General: patient oriented x3, gait normal and no focal motor deficits Cranial nerves: Yes Normal hearing present Speech: No Abnormal speech present Extrem Other: sensation intact General: Yes normal to inspection, Yes full ROM and Yes capillary refill normal Assessment & Plan Assessment & Plan (1) Carcinoid tumor: Comment: (S/P RUL lobectomy at [facility] - 08/2016) Code(s): D3A.00 - Benign carcinoid tumor of unspecified site Category: Medical Qualifiers: Carcinoid tumor location: lung Carcinoid tumor malignancy status: malignant Qualified Code(s): C7A.090 - Malignant carcinoid tumor of the bronchus and lung (2) Post-thoracotomy pain syndrome: Code(s): G89.12 - Acute post-thoracotomy pain Category: Medical (3) Pulmonary nodules: Comment: Likely tumorlets Code(s): R91.8 - Other nonspecific abnormal finding of lung field Category: Medical (4) Obstructive sleep apnea: Code(s): G47.33 - Obstructive sleep apnea (adult) (pediatric) Category: Medical (5) Chronic bronchitis: Code(s): J42 - Unspecified chronic bronchitis Category: Medical Qualifiers: Chronic bronchitis type: mucopurulent Qualified Code(s): J41.1 - Mucopurulent chronic bronchitis Plan continue Flovent continue Stiolto daily SANGITA as needed nebulizer as needed Claritin continue Singulair continue Azithromycin MWF, EKG start Daliresp 500mcg daily Repeat CT chest per Thoracic surgery in January; RUL 6mm->4mm needs to increase APAP usage, requesting N20 and reteaching with DME, Regional EKG F/U 3-4 months Orders: Orders ECG 12 lead EKG Today J44.9 - Chronic obstructive pulmonary disease, unspecified Coding Level of Care Code Est Pt Level 4 (84520) Complex EM visit Add On G2211 Diagnoses 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 Carcinoid tumor location: lung Carcinoid tumor malignancy status: malignant Post-thoracotomy pain syndrome G89.12 Pulmonary nodules R91.8 Obstructive sleep apnea G47.33 Mucopurulent chronic bronchitis J41.1 Chronic bronchitis type: mucopurulent Time Spent (min) 17
--- OUTSIDE RECORDS SUMMARY | 2024-05-02 12:12 | XMS_ITS | Clinical Summary ---
Author Organization [facility] Address [address] [place] [phone] Phone Care Team Providers Care Chainstitch Elastic Attacher Name Role Phone Leroy Sanchez MD Primary [...] being seen in a pain clinic at [place]. Plan from our standpoint will be for a 1 year follow-up CT scan of the chest and a visit in this office after that. All questions were answered. This visit was done through the video interpreter for the deaf services. Chronic obstructive pulmonary disease 09/29/2016 Obstructive sleep apnea syndrome 09/29/2016 Overview (12/23/2023): [facility] Home Polysomnogram: Date 05/17/2017; AHI 6, [...] AM EST Office Visit Thoracic Surgery - [address] [phone] Pratibha Waggoner MD Malignant carcinoid tumor of lung (CMS/HCC) (Primary Dx); Pulmonary nodule 01/31/2024 Telephone Lung Screening Program - [address] [phone] Ally Villatoro MA from Last 3 Months Surgical History Surgery Date Site/Laterality Comments TUBAL LIGATION PROCEDURE: HISTORICAL TUBAL LIGATION OTHER SURGICAL HISTORY 2017 PROCEDURE: LUNG BIOPSY THROUGH CHEST WALL Medical History Medical History Date Comments Hypertension 04/04/2012 DX:Hypertension Historical Medical DX 04/04/2012 DX:Hyperli pidemia LDL goal < 70 DM2 (diabetes mellitus, type 2) (CMS/HCC) 04/04/2012 DX:DM2 (diabetes mellitus, t ype 2) ([facility]) Lumbar disc disease 04/04/2012 DX:Lumbar di sc [...] Procedure Name Priority Date/Time Associated Diagnosis Comments [facility] SCREEN[facility] Routine 06/16/2023 11:59 AM EDT Encounter for screening mammogram for malignant neoplasm of breast from Last 3 Months or Most Recently Relevant to Health Maintenance Results * [facility] SCREEN[facility] (06/16/2023 11:59 AM EDT) Anatomical Region Laterality Modality Mammography 06/16/2023 10:3 6 AM EDT Narrative 06/16/2023 11:59 AM EDT [facility] Diagnostic Imaging Department [address] [place] [id number] Patient: ??PATO SAHU I ?/Age/Sex: 1955 - - F Unit#: ??[id number] ? Location/Status: ??SPDIMAM/REG CLI ? Mnemonic/Ordering Site: ??DIGSC/SPMAM Ordering Physician: ??LEROY SANCHEZ MD [facility] Screening Digital - 06/16/23 - 1106 Report Status:Signed EXAM: [facility] Screening Digital EXAM DATE AND TIME: 06/16/2023 11:07 AM HISTORY: ??Annual screening COMPARISON: ??Multiple exams dating back to 2016 TECHNIQUE: Bilateral digital breast tomosynthesis was performed in the CC and MLO projections. Computer aided detection with [employer] 3D 3.1 was employed. TISSUE DENSITY: b. [...] screening mammogram BILATERAL in 1 year. 3341F, 7002F Dictating Physician: ??WALLY MOELLER MD Electronically Signed by: ??WALLY MOELLER MD Dic Date/Time: ??06/16/23 1158 Sign date/Time: ??06/16/23 1159 Procedure Note Wally Moeller MD - 11/01/2023 [facility] Diagnostic Imaging Department [address] [place] [id number] Patient: PATO SAHU Nikki /Age/Sex: 1955 - 67 - F Unit#: [id number] Location/Status: [facility] CLI Mnemonic/Ordering Site: [facility] Ordering Physician: LEROY SANCHEZ MD [facility] Screening Digital - 06/16/23 - 1106 Report Status:Signed EXAM: [facility] Screening Digital EXAM DATE AND TIME: 06/16/2023 11:07 AM HISTORY: Annual screening COMPARISON: Multiple exams dating back to 2016 TECHNIQUE: Bilateral digital breast tomosynthesis was performed in the CCand MLO projections. Computer aided detection with [employer] 3D 3.1was employed. TISSUE DENSITY: b. There [...] MEDICARE ADVANTAGE [place]ICA[place] Care Teams Chainstitch Elastic Attacher Relationship Specialty Start Date End Date Leroy Sanchez MD [address] [place] [address] [address] Suarez PCP - General Internal Medicine 11/27/11
== END 2024-05-02 11:56 | disposition home or self-care (01) ==
PROVIDERS: PCP Internal Medicine; Visit Provider Hospitalist
DX: C7A.090 Malignant carcinoid tumor of the bronchus and lung (principal); G89.12 Acute post-thoracotomy pain; R91.8 Other nonspecific abnormal finding of lung field; G47.33 Obstructive sleep apnea (adult) (pediatric); J41.1 Mucopurulent chronic bronchitis
CPT/HCPCS: 99214; G2211

== ENCOUNTER → 2024-05-02 11:00 | Outpatient (BNVA) | payer MEDICARE, MEDICAID, SELFPAY | PROVIDERS: PCP Internal Medicine; Visit Provider Hospitalist | DX: J41.1 Mucopurulent chronic bronchitis (principal); G47.33 Obstructive sleep apnea (adult) (pediatric); C7A.090 Malignant carcinoid tumor of the bronchus and lung; G89.12 Acute post-thoracotomy pain; R91.8 Other nonspecific abnormal finding of lung field; Z99.89 Dependence on other enabling machines and devices | CPT/HCPCS: 99212 ==

== ENCOUNTER 2024-05-11 12:57 | Outpatient (REF) | payer MEDICARE, MEDICAID, SELFPAY ==
--- NOTE | ~2024-05-11 | CT_ITS ---
EXAMINATION: CT LUMBAR SPINE WITHOUT CONTRAST CLINICAL INFORMATION: Lumbar radiculopathy. COMPARISON: None available. TECHNIQUE: Contiguous axial images through the lumbar spine using 2 mm collimation with bone and soft tissue algorithm. Sagittal and coronal reformatted images acquired. This CT examination was performed using dose optimization techniques as appropriate, variously including the following: *Automated exposure control *Adjustment of mA and/or kV according to patient size (this includes techniques or standardized protocols for targeted exams where dose is matched to indication/reason for exam; i.e. extremities or head) *Use of iterative reconstruction technique DLP: 1183 mGy centimeter. FINDINGS: Last rib-bearing vertebra labeled T12. Syndesmophyte formation and marginal osteophyte formation, T11-T12, T12-L1, L1 to and to a lesser extent L4-5 levels. Marginal osteophyte formation posteriorly at L1-2 and L5-S1. Grade 1 anterolisthesis L4-5. Bilateral facet joint hypertrophy throughout the lower thoracic and lumbar spine. There is sclerosis subchondral cyst formation and decreased space at the posterior spinous processes of L2-3 and to a lesser extent L3-4 levels with associated soft tissue component. No acute cortical disruption. Decreased AP diameter of the central spinal canal at L1-2 on a multifactorial basis. There is fatty atrophy of the lower lumbar muscles from L4-5 to sacrum. No prevertebral compartment hematoma mass or fluid collection. There is a 1.4 cm intraluminal calcification in the gallbladder neck. Calcified plaques throughout the abdominal aorta wall and iliac arteries without gross aneurysm. Calcified plaque in the origin of the main renal arteries. No hydronephrosis or nephrolithiasis in the visualized kidneys. 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 Multilevel thoracolumbar spondylosis resulting in grade 1 anterolisthesis L4-5. Central spinal canal stenosis at L1-2 on a degenerative basis. Cholelithiasis. Atherosclerosis disease.. Electronically signed by: Napoleon Vega MD 05/11/2024 03:31 PM MASSIEL
--- OUTSIDE RECORDS SUMMARY | 2024-05-11 15:24 | XMS_ITS | Encounter Summary ---
Author Organization [facility] Address [address] [place] [address] Care Team Providers Care Lighting Engineering Technician Name Role Phone Leroy Jauregui MD Primary Care Provider Leroy Garcia MD Unavailable Unavailable Pratibha Waggoner MD Unavailable Encounter Details Date Type Department Care Team Description 10/21/2023 Orders Only [facility] Thoracic Surgery [place] [address] [facility] [address] [place] [phone] Pratibha Waggoner MD [address] [facility] [place] [address] [place] [phone] Malignant carcinoid tumor of lung (HCC); Pulmonary [...] field documented in this encounter Care Teams Lighting Engineering Technician Relationship Specialty Start Date End Date Leroy Jauregui MD PCP - General Internal Medicine 11/11/21 Leroy Jauregui MD Internal Medicine 11/11/21 Pratibha Waggoner MD Lung Cancer Supervisor Bonding 12/28/22 documented as of this encounter
--- OUTSIDE RECORDS SUMMARY | 2024-05-11 15:24 | XMS_ITS | Encounter Summary ---
Author Organization [facility] Address [address] [place] [address] Care Team Providers Care Chargemaster Analyst Name Role Phone Leroy Jauregui MD Primary Care Provider Leroy Garcia MD Primary Care Provider Leroy Garcia MD Unavailable Unavailable Pratibha Waggoner MD Unavailable Reason for Visit * Reason Onset Date Comments Sleep Study 04/21/2018 Encounter Details Date Type Department Care Team Description 04/21/2018 Telephone Pulmonology - [place] [address] [facility] [address] [place] [phone] Angelo Hoffmann MD Sleep Study [...] 4:59 PM EST Please call Lucas from [facility]. Let her know that the patient needs to get help setting up for hersupplies for her cpap. Have lucas call her to make sure she is all set. documented in this encounter Plan of Treatment Not on file documented as of this encounter Visit Diagnoses Not on filedocumented in this encounter Care Teams Chargemaster Analyst Relationship Specialty Start Date End Date Leroy Jauregui MD PCP - General Internal Medicine 04/21/18 11/10/21 Leroy Jauregui MD PCP - General Internal Medicine 11/11/21 Leroy Jauregui MD Internal Medicine 11/11/21 Pratibha Waggoner MD Lung Cancer Networker 12/28/22 documented as of this encounter
--- OUTSIDE RECORDS SUMMARY | 2024-05-11 15:24 | XMS_ITS | Encounter Summary ---
Author Organization [facility] Address [address] [place] [address] Care Team Providers Care Donor Recruitment Manager Name Role Phone Leroy Jauregui MD Primary Care Provider Leroy Garcia MD Unavailable Unavailable Pratibha Waggoner MD Unavailable Encounter Details Date Type Department Care Team Description 11/27/2022 Nurse Companion Report [facility] Thoracic Surgery [place] [address] [facility] [address] [place] [phone] Pratibha Waggoner MD [address] [facility] [place] [address] [place] [phone] Social History Tobacco Use Types Packs/Day Years [...] on filedocumented in this encounter Care Teams Donor Recruitment Manager Relationship Specialty Start Date End Date Leroy Jauregui MD PCP - General Internal Medicine 11/11/21 Leroy Jauregui MD Internal Medicine 11/11/21 Pratibha Waggoner MD Lung Cancer Piano Teacher 12/28/22 documented as of this encounter
--- OUTSIDE RECORDS SUMMARY | 2024-05-11 15:25 | XMS_ITS | Encounter Summary ---
Author Organization [facility] Address [address] [place] [address] Care Team Providers Care Tuft Machine Operator Name Role Phone Consuelo Plaza MD Primary Care Provider Leroy Cevallos MD Primary Care Provider Leroy Garcia MD Primary Care Provider Leroy Garcia MD Unavailable Unavailable Pratibha Waggoner MD Unavailable Encounter Details Date Type Department Care Team Description 05/20/2017 Orders Only Medical Records [address] [place] [address] Swetha Aaron NP Social History Tobacco Use [...] on filedocumented in this encounter Care Teams Tuft Machine Operator Relationship Specialty Start Date End Date Consuelo Plaza MD PCP - General Internal Medicine 05/18/17 04/20/18 Leroy Jauregui MD PCP - General Internal Medicine 04/21/18 11/10/21 Leroy Jauregui MD PCP - General Internal Medicine 11/11/21 Leroy Jauregui MD Internal Medicine 11/11/21 Pratibha Waggoner MD Lung Cancer High Worker 12/28/22 documented as of this encounter
--- OUTSIDE RECORDS SUMMARY | 2024-05-11 15:25 | XMS_ITS | Clinical Summary ---
Author Organization [facility] Address [address] [place] [phone] Phone Care Team Providers Care Engineering And Operations Director Name Role Phone Leroy Sanchez MD Primary Care Provider [phone] Allergies Active Allergy Reactions Criticality Noted Date [...] being seen in a pain clinic at [place]. Plan from our standpoint will be for a 1 year follow-up CT scan of the chest and a visit in this office after that. All questions were answered. This visit was done through the video oil refiner services. Chronic obstructive pulmonary disease 09/29/2016 Obstructive sleep apnea syndrome 09/29/2016 Overview (12/23/2023): [facility] Home Polysomnogram: Date 05/17/2017; AHI 6, Unclassified [...] AM EST Office Visit Thoracic Surgery - [address] [phone] Pratibha Waggoner MD Malignant carcinoid tumor of lung (CMS/HCC) (Primary Dx); Pulmonary nodule from Last 3 Months Surgical History Surgery Date Site/Laterality Comments TUBAL LIGATION PROCEDURE: HISTORICAL TUBAL LIGATION OTHER SURGICAL HISTORY 2017 PROCEDURE: LUNG BIOPSY THROUGH CHEST WALL Medical History Medical History Date Comments Hypertension 04/04/2012 DX:Hypertension Historical Medical DX 04/04/2012 DX:Hyperli pidemia LDL goal < 70 DM2 (diabetes mellitus, type 2) (CMS/HCC) 04/04/2012 DX:DM2 (diabetes mellitus, t ype 2) ([facility]) Lumbar disc disease 04/04/2012 DX:Lumbar di sc [...] Blood Test 02/28/2022 Influenza Vaccine (#1) 2023 3, 02/14/2021, 01/11/2020, Additional history exists DTaP,Tdap,and Td [...] Procedure Name Priority Date/Time Associated Diagnosis Comments [facility] SCREENING DIGITAL Routine 06/16/2023 11:59 AM EDT Encounter for screening mammogram for malignant neoplasm of breast from Last 3 Months or Most Recently Relevant to Health Maintenance Results * [facility] SCREENING DIGITAL (06/16/2023 11:59 AM EDT) Anatomical Region Laterality Modality Mammography 06/16/2023 10:3 6 AM EDT Narrative 06/16/2023 11:59 AM EDT [facility] Diagnostic Imaging Department [address] [place] [phone] Patient: ??PATO SAHU I ?/Age/Sex: 1955 - 67 - F Unit#: ??[id number] ? Location/Status: ??SPDIMAM/REG CLI ? Mnemonic/Ordering Site: [...] and MLO projections. Computer aided detection with [employer] 3D 3.1 was employed. TISSUE DENSITY: b. [...] Procedure Note Wally Moeller MD - 11/01/2023 [facility] Diagnostic Imaging Department [address] [place] [id number] Patient: PATO SAHU Nikki /Age/Sex: 1955 - 67 - F Unit#: [id number] Location/Status: SPDIMAM/REG CLI Mnemonic/Ordering Site: [facility] Ordering Physician: LEROY SANCHEZ MD [facility] Screening Digital - 06/16/23 - 1106 Report Status:Signed EXAM: [facility] Screening Digital EXAM DATE AND TIME: 06/16/2023 11:07 AM HISTORY: Annual screening COMPARISON: Multiple exams dating back to 2016 TECHNIQUE: [facility] Computer aided detection with [employer] 3D 3.1was employed. TISSUE DENSITY: b. There [...] MEDICARE ADVANTAGE MEDICAID - [place] Care Teams Engineering And Operations Director Relationship Specialty Start Date End Date Leroy Sanchez MD [address] [place] [address] [address] Suarez PCP - General Internal Medicine 11/27/11
== END 2024-05-11 12:58 | disposition home or self-care (01) ==
LOC: HO.CT 12:57
PROVIDERS: PCP Internal Medicine; Visit Provider Psychiatry & Neurology Neurology
DX: M54.16 Radiculopathy, lumbar region (principal)
CPT/HCPCS: 72131

== ENCOUNTER → 2024-05-11 13:00 | Outpatient (BNV) | payer MEDICARE, MEDICAID, SELFPAY | PROVIDERS: PCP Internal Medicine; Visit Provider Radiology Diagnostic Radiology | DX: M54.16 Radiculopathy, lumbar region (principal); M47.895 Other spondylosis, thoracolumbar region; M48.062 Spinal stenosis, lumbar region with neurogenic claudication | CPT/HCPCS: 72131 ==

== ENCOUNTER → 2024-05-25 11:46 | Outpatient (REF) | payer MEDICARE, MEDICAID, SELFPAY ==
--- NOTE | 2024-05-25 11:51 | ECG_ITS ---
Test Reason : COPD Blood Pressure : */* mmHG Vent. Rate : 80 BPM Atrial Rate : 80 BPM P-R Int : 160 ms QRS Dur : 142 ms QT Int : 410 ms P-R-T Axes : 69 -8 82 degrees QTcB Int : 472 ms Normal sinus rhythm Left bundle branch block Abnormal ECG When compared with ECG of 30-Dec-2022 18:52, No significant change was found Referred By: Angelo Hoffmann Electronically Signed By: JAYESH WILSON
--- OUTSIDE RECORDS SUMMARY | 2024-05-25 15:12 | XMS_ITS | Encounter Summary ---
Author Organization [facility] Address [address] [place] [address] Care Team Providers Care Acupressure Therapist Name Role Phone Leroy Jauregui MD Primary Care Provider Leroy Garcia MD Primary Care Provider Leroy Garcia MD Unavailable Unavailable Pratibha Waggoner MD Unavailable Reason for Visit * Reason Onset Date Comments Sleep Study 04/21/2018 Encounter Details Date Type Department Care Team Description 04/21/2018 Telephone Pulmonology - [place] [address] [facility] [address] [place] [address] Angelo Hoffmann MD Sleep Study [...] 4:59 PM EST Please call Lucas from [facility]. Let her know that the patient needs to get help setting up for hersupplies for her cpap. Have lucas call her to make sure she is all set. documented in this encounter Plan of Treatment Not on file documented as of this encounter Visit Diagnoses Not on filedocumented in this encounter Care Teams Acupressure Therapist Relationship Specialty Start Date End Date Leroy Jauregui MD PCP - General Internal Medicine 04/21/18 11/10/21 Leroy Jauregui MD PCP - General Internal Medicine 11/11/21 Leroy Jauregui MD Internal Medicine 11/11/21 Pratibha Waggoner MD Lung Cancer Physician Assistant Certified 12/28/22 documented as of this encounter
--- OUTSIDE RECORDS SUMMARY | 2024-05-25 15:12 | XMS_ITS | Clinical Summary ---
Author Organization [facility] Address [address] [place] [phone] Phone Care Team Providers Care Public Relations Professional Name Role Phone Leroy Sanchez MD Primary [...] being seen in a pain clinic at [place]. Plan from our standpoint will be for a 1 year follow-up CT scan of the chest and a visit in this office after that. All questions were answered. This visit was done through the video search specialist services. Chronic obstructive pulmonary disease 09/29/2016 Obstructive sleep apnea syndrome 09/29/2016 Overview (12/23/2023): [facility] Home Polysomnogram: Date 05/17/2017; AHI [...] Diagnosed Date Resolved Date Anxiety 04/04/2012 12/23/2023 Surgical History Surgery Date Site/Laterality Comments TUBAL LIGATION PROCEDURE: HISTORICAL TUBAL LIGATION OTHER SURGICAL HISTORY 2016 PROCEDURE: LUNG BIOPSY THROUGH CHEST WALL Medical History Medical History Date Comments Hypertension 04/04/2012 DX:Hypertension Historical Medical DX 04/04/2012 DX:Hyperli pidemia LDL goal < 70 DM2 (diabetes mellitus, type 2) ([facility]) 04/04/2012 DX:DM2 (diabetes mellitus, t ype 2) ([facility]) Lumbar disc disease 04/04/2012 DX:Lumbar di sc disease Depression 04/04/2012 DX:Depression Anxiety 04/04/2012 DX:Anxiety Obesity 04/04/2012 DX:Obesity LBBB (left bundle branch block) 04/04/2012 DX:LBBB (left bundle branch block) Emphysema lung ([facility]) DX:Emph ysema lung ([facility]) Fibromyalgia DX:Fibromyalgia Arthritis DX:Arthritis Family History Medical [...] Procedure Name Priority Date/Time Associated Diagnosis Comments [facility] Routine 06/16/2023 11:59 AM EDT Encounter for screening mammogram for malignant neoplasm of breast from Last 3 Months or Most Recently Relevant to Health Maintenance Results * [facility]CREEN[facility]IGITAL (06/16/2023 11:59 AM EDT) Anatomical Region Laterality Modality Mammography 06/16/2023 10:3 6 AM EDT Narrative 06/16/2023 11:59 AM EDT [facility] Diagnostic Imaging Department [address] [place] [address] Patient: ??PATO SAHU I ?/Age/Sex: 1955 - 67 - F Unit#: ??[id number] ? Location/Status: ??SPDIMAM/REG CLI ? Mnemonic/Ordering Site: ??DIGSC/SPMAM Ordering Physician: ??LEROY SANCHEZ MD [facility] Screening Digital - 06/16/23 - 1106 Report Status:Signed EXAM: [facility] Screening Digital EXAM DATE AND TIME: 06/16/2023 11:07 AM HISTORY: ??Annual screening COMPARISON: ??Multiple exams dating back to 2016 TECHNIQUE: Bilateral digital breast tomosynthesis was performed in the CC and MLO projections. Computer aided detection with [employer] 3D 3.1 was employed. TISSUE DENSITY: b. [...] 1158 Sign date/Time: ??06/16/23 1159 Procedure Note Walyl Moeller MD - 11/01/2023 [facility] Diagnostic Imaging Department [address] [place] [address] Patient: PATO SAHU I /Age/Sex: 1955 - 67 - F Unit#: [id number] Location/Status: SPDIMAM/REG CLI Mnemonic/Ordering Site: [facility] Ordering Physician: LEROY SANCHEZ MD [facility] Screening Digital - 06/16/23 - 1106 Report Status:Signed EXAM: [facility] Screening Digital EXAM DATE AND TIME: 06/16/2023 11:07 AM HISTORY: Annual screening COMPARISON: Multiple exams dating back to 2015 TECHNIQUE: Bilateral digital breast tomosynthesis was performed in the CCand MLO projections. Computer aided detection with [employer] 3D 3.1was employed. TISSUE DENSITY: b. There [...] Dic Date/Time: 06/16/23 1158 Sign date/Time: 06/16/23 1153 us Leroy Sanchez MD IMG BI PROCEDURES Final Resu lt from Last 3 Months or Most Recently Relevant to Health Maintenance Insurance [employer] MEDICARE ADVANTAGE MEDICAID - [place] Care Teams Public Relations Professional Relationship Specialty Start Date End Date Leroy Sanchez MD [address] [place] [address] [address] Suarez PCP - General Internal Medicine 11/27/11
--- OUTSIDE RECORDS SUMMARY | 2024-05-25 15:12 | XMS_ITS | Encounter Summary ---
Author Organization [facility] Address [address] [place] [address] Care Team Providers Care Furnace Repair Mechanic Name Role Phone Leroy Jauregui MD Primary Care Provider Consuelo Schaefer MD Primary Care Provider Leroy Cevallos MD Primary Care Provider Leroy Garcia MD Primary Care Provider Leroy Garcia MD Unavailable Unavailable Pratibha Waggoner MD Unavailable Encounter Details Date Type Department Care Team Description 03/23/2017 Transfer Records Medical Records [address] [place] [id number] Abstract, Provider Social History Tobacco Use Types [...] on filedocumented in this encounter Care Teams Furnace Repair Mechanic Relationship Specialty Start Date End Date Leroy Jauregui MD PCP - General Internal Medicine 11/27/11 05/17/17 Consuelo Plaza MD PCP - General Internal Medicine 05/18/17 04/20/18 Leroy Jauregui MD PCP - General Internal Medicine 04/21/18 11/10/21 Leroy Jauregui MD PCP - General Internal Medicine 11/11/21 Leroy Jauregui MD Internal Medicine 11/11/21 Pratibha Waggoner MD Lung Cancer Pump Runner 12/28/22 documented as of this encounter
--- OUTSIDE RECORDS SUMMARY | 2024-05-25 15:12 | XMS_ITS | Encounter Summary ---
Author Organization [facility] Address [address] [place] [address] Care Team Providers Care Supervisor [employer] Name Role Phone Leroy Jauregui MD Primary Care Provider Leroy Garcia MD Primary Care Provider Leroy Garcia MD Unavailable Unavailable Pratibha Waggoner MD Unavailable Encounter Details Date Type Department Care Team Description 11/07/2021 Icer Machine Operator Report Medical Records [address] [place] [address] Pratibha Waggoner MD [address] [place] [address] Social History Tobacco Use Types Packs/Day Years Used Date Smoking Tobacco: Never Assessed Sex Assigned at Date Recorded Not on file documented as of this encounter Plan of Treatment Not on file documented as of this encounter Visit Diagnoses Not on filedocumented in this encounter Care Teams Supervisor Char House Relationship Specialty Start Date End Date Leroy Jauregui MD PCP - General Internal Medicine 04/21/18 11/10/21 Leroy Jauregui MD PCP - General Internal Medicine 11/11/21 Leroy Jauregui MD Internal Medicine 11/11/21 Pratibha Waggoner MD Lung Cancer Hiv Cts Specialist 12/28/22 documented as of this encounter
--- OUTSIDE RECORDS SUMMARY | 2024-05-25 15:12 | XMS_ITS | Clinical Summary ---
Author Organization [facility] Address [address] [place] [address] Care Team Providers Care Operating Engineer Name Role Phone Leroy Jauregui MD Primary Care Provider Leroy Garcia MD Unavailable Unavailable Pratibha Waggoner MD Unavailable Allergies Active Allergy Reactions Severity Noted Date Comments Nitrofurantoin Medications Medication Sig Dispensed Refills Start Date End Date Status metformin (GLUCOPHAGE-XR) 750 MG 24 hr tablet Take 750 mg by mouth 2 times daily. 500mg 0 Active aspirin (SB LOW DOSE ASA EC) 81 MG EC tablet Take 81 mg by mouth daily. 0 Active hydrochlorothiazide (HYDRODIURIL) 25 MG tablet Take 25 mg by mouth daily. 0 Active losartan (COZAAR) 25 MG tablet Take 25 mg by mouth daily. 100mg 0 Active LORATADINE OR Take by mouth. 0 Active simvastatin (ZOCOR) 40 MG tablet Take 40 mg by mouth at bedtime. 0 Active pregabalin (LYRICA) 100 MG capsule Take 100 mg by mouth 3 times daily. 0 Active fluticasone 50 MCG/ACT nasal spray 2 Sprays by Each Nare route daily. 0 Active Dexlansoprazole 60 MG CAPSULE DELAYED RELEASE Take by mouth. 0 Active fluoxetine (PROZAC) 10 MG tablet Take 10 mg by mouth daily. 0 Active metoprolol (LOPRESSOR) 50 MG tablet Take 50 mg by mouth daily. 0 Active gabapentin (NEURONTIN) 800 MG tablet Take 800 mg by mouth at bedtime. 0 Active oxaprozin (DAYPRO) 600 MG tablet Take 1,200 mg by mouth daily. 0 Active tramadol (ULTRAM) 50 MG tablet Take 50 mg by mouth every 6 hours as needed. 0 Active lorazepam (ATIVAN) 0.5 MG tablet Take 0.5 mg by mouth every 6 hours as needed. 0 Active etodolac (LODINE) 400 MG tablet Take 400 mg by mouth 2 times daily. 0 Active azithromycin (ZITHROMAX) 250 MG tablet 1 TABLET BY MOUTH Wednesday AND WEDNESDAY 36 Tab 3 09/16/2017 Active montelukast (SINGULAIR) 10 MG tabletIndications:Car cinoid tumor of lung,Simple chronic bronchitis (HCC),Obstructive sleep apnea syndrome Take 1 Tab by mouth at bedtime for 90 days. 90 Tab 3 08/02/2018 Active ALBUTEROL SULFATE 108 (90 BASE) MCG/ACT Aero SolnIndications:Carci noid tumor of lung,Simple chronic bronchitis (HCC),Obstructive sleep apnea syndrome Inhale 2 Puffs into the lungs every 4 hours as needed for Wheezing for up to 90 days. 3 Inhaler 3 08/02/2018 Active Tiotropium Lamoni Monohydrate (SPIRIVA RESPIMAT) 2.5 MCG/ACT Aero SolnIndications:Carci noid tumor of lung,Simple chronic bronchitis (HCC),Obstructive sleep apnea syndrome Inhale 5 mcg into the lungs daily for 90 days. 3 Inhaler 3 08/02/2018 Active estradiol (ESTRACE VAGINAL) 0.1 MG/GM vaginal creamIndications:Vagi nitis and vulvovaginitis Apply small amount to the labia nightly at bedtime for one week then twice a week ( and Wednesday) 42.5 g 3 04/24/2019 Active clotrimazole-betameth asone (LOTRISONE) cream Apply topically to affected area twice daily for no more than 10 days 30 g 0 04/24/2019 Active UltiCare Alcohol Swabs 70 % Pads 1 PAD TOPICAL TIA VECES AL D A 0 03/04/2020 Active amitriptyline (ELAVIL) 25 MG tablet TOME ERICA TABLETA POR V A ORAL AL ACOSTARSE 0 03/17/2020 Active amoxicillin-clavulana te (AUGMENTIN) 875-125 MG per tablet 0 03/29/2020 Act purnima atorvastatin (LIPITOR) 40 MG tablet TOME ERICA TABLETA TODOS LOS D 0 03/17/2020 Active duloxetine (CYMBALTA) 60 MG capsule TAKE 60 MG POR V A ORAL DAILY 0 03/07/2020 Active fluoxetine (PROZAC) 10 MG capsule TOME ERICA C PSULA TODOS LOS D 0 03/20/2020 Active Glucose Blood (FREESTYLE LITE) Strip 1 Strip 3 times daily. 0 03/18/2020 Active ibuprofen (ADVIL,MOTRIN) 800 MG tablet PLEASE SEE ATTACHED FOR DETAILED DIRECTIONS 0 03/21/2020 Active VICTOZA 18 MG/3ML Solution Pen-injector 1.8 MG (0.3 ML) SUBCUT DAILY 0 03/09/2020 Active loratadine (CLARITIN) 10 MG tablet TOME ERICA TABLETA TODOS LOS D CUANDO SEA NECESARIO 0 03/25/2020 Active lorazepam (ATIVAN) 1 MG tablet TAKE 1 TABLET BY MOUTH AT NIGHT NEEDED AND 1/2 IN THE DAY NEEDED 0 03/20/2020 Active metformin (GLUCOPHAGE) 500 MG tablet TOME ERICA TABLETA DOS VECES AL D A 0 03/21/2020 Active metoprolol (TOPROL-XL) 50 MG 24 hr tablet TOME ERICA TABLETA TODOS LOS D 0 03/25/2020 Active sertraline (ZOLOFT) 100 MG tablet TOME ERICA TABLETA TODOS LOS D 0 03/18/2020 Active valsartan (DIOVAN) 320 MG tablet TAKE 320 MG POR V A ORAL DAILY 0 03/11/2020 Active predniSONE (DELTASONE) 10 MG tablet 0 03/29/2020 Active clotrimazole-betameth asone (LOTRISONE) cream Apply topically to affected area twice daily for no more than 10 days 30 g 2 04/02/2020 Active Fluticasone Propionate HFA (FLOVENT HFA IN) 0 Active montelukast (SINGULAIR) 10 MG tablet 0 Active Albuterol Sulfate (PROAIR HFA IN) 0 Active nystatin (MYCOSTATIN) ointment Apply to affected twice a day for 10 days 30 g 2 05/01/2021 Active Active Problems Problem Noted Date Neurogenic pain 10/25/2023 Pulmonary nodule 10/25/2023 Varicose veins of both lower extremities 04/02/2020 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 I discussed the finding of a new 6 mm nodule in the right upper lobe subpleurally and laterally which is of minimal concern however I would like to follow more closely. Again we talked about pulmonary nodules and how their size, shape, and casino change attendant time affect her level of suspicion for malignancy. Plan then will be for a 3-month follow-up CT scan of the chest and a visit with me after that. She also has some neurogenic pain still since her operation and I will plan on referring her to interventional pain regarding that. Chronic obstructive pulmonary disease Obstructive sleep apnea mild AHI 6 09/29 Overview: [facility] Home Polysomnogram: Date 05/17/2017; AHI 6, Unclassified apneas 0; Obstructive apneas 0; Central apneas 0; Mixed apneas 0; hypopneas 37; average oxygen saturation 94% (lowest 82% without saturations <88% for 5% or more of study) - Obstructive Sleep Apnea - mild; all hypopneas; no sleep related hypoventilation by 2018 home polysomnogram. Hypertension 04/04/2012 Hyperlipidemia LDL goal < 70 04/04/2012 Overview: IMO update DM2 (diabetes mellitus, type 2) 04/04/19 13 Lumbar disc disease 04/04/2012 Depression 04/04/2012 Anxiety 04/04/2012 Morbid obesity with BMI of 45.0-49.9, ad ult 04/04/2012 LBBB (left bundle branch block) 04/04/19 13 Family History Medical History Relation Name Comments CAD Other family members, no early cad Relation Name Status Comments Other Social History Tobacco Use Types Packs/Day Years Used Date Smoking Tobacco: Former Smokeless Tobacco: Never Tobacco Cessation:Counseling Given: Not Answered Alcohol Use Standard Drinks/Week Comments No 0 (1 standard drink = 0.6 oz pur e alcohol) Sex Assigned at Date Recorded Not on file Last Filed Vital Signs Vital Sign Reading Time Taken Comments Blood Pressure 157/76 10/25/2023 10:24 AM EDT Pulse 76 10/25/2023 10:24 AM EDT Temperature 36.8 ??C (98.2 ??F) 10/25/2023 1 0:24 AM EDT Respiratory Rate 18 10/25/2023 10:2 4 AM EDT Oxygen Saturation 98% 10/25/2023 10: 24 AM EDT Inhaled Oxygen Concentration - - Weight 103.1 kg (227 lb 4.8 oz) 024 10:24 AM EDT Height 154.9 cm (5' 1 ) 10/25/2023 10:2 4 AM EDT Body Mass Index 42.95 10/25/2023 10:24 AM EDT Plan of Treatment Health Maintenance Due Date Last Done Comments DEPRESSION SCREEN 1967 HEPATITIS C SCREENING 07/09/1973 CHOLESTEROL SCREENING 1975 COLON CANCER SCREENING 07/09/2005 SHINGLES VACCINE (1 of 2) 07/09/2005 MAMMOGRAM 11/11/2017 11/11/2016 (Exte rnal Completion), 11/11/2016, 09/29/2016 (External Completion), Additional history exists BONE DENSITY SCREENING 07/09/2020 FALL RISK ASSESSMENT 07/09/2020 PNEUMOCOCCAL VACCINE (2 - PCV) 01/10/2021 01/11/2020 Covid-19 Vaccine (2 - 2022-2 4 season) 2023 12/17/2021 INFLUENZA (#1) 2023 BMI CHECK/ADVISE 03/15/2024 04/02/2020, , 08/02/2018, Additional history exists DEPRESSION SCREENING/FOLLOWUP 03/15/2024 04/04/2012 DTAP/TDAP/TD (2 - Td or Tdap) 04/16/2025 04/16/2015 Care Teams Operating Engineer Relationship Specialty Start Date End Date Leroy Jauregui MD PCP - General Internal Medicine 11/11/21 Leroy Jauregui MD Internal Medicine 11/11/21 Pratibha Waggoner MD Lung Cancer Traffic Administrator 12/28/22
== END ==
LOC: HO.CARD 11:46
PROVIDERS: PCP Internal Medicine; Visit Provider Hospitalist
DX: J44.9 Chronic obstructive pulmonary disease, unspecified (principal)
CPT/HCPCS: 93005

== ENCOUNTER → 2024-05-25 11:51 | Outpatient (BNV) | payer MEDICARE, MEDICAID, SELFPAY | PROVIDERS: PCP Internal Medicine; Visit Provider Internal Medicine | DX: R94.31 Abnormal electrocardiogram [ECG] [EKG] (principal); I44.7 Left bundle-branch block, unspecified; J44.9 Chronic obstructive pulmonary disease, unspecified | CPT/HCPCS: 93010 ==

== ENCOUNTER 2024-06-05 10:03 | Outpatient (AMB) | payer MEDICARE, MEDICAID, SELFPAY ==
--- NOTE | 2024-06-05 10:06 | A.OFFVIS_ITS ---
Vital Signs 06/05/24 10:07 Height 5 ft 1 in Weight 196 lb 3.382 oz BMI 37.1 BP 130/78 Blood Pressure Location Rt brachial Position Sitting Pulse 77 Pulse Source Pulse Oximeter Pulse Oximetry (%) 96 Oxygen Delivery Method Room Air Intake Visit Reasons: dm Intake Note: Patient presents today for D2MT follow up visit. Last Diabetic Eye exam: August 2023 Last Podiatry Visit: Doesn't have one Most Recent HgA1c: 6.9% 04/13/2024 Random Glucose: 147 mg/dL, Today Straw Baler Required: Yes Straw Baler Language: Advanced Quality Engineer Services: Straw Baler Present Straw Baler Name: DAVINA Darnell/LUISITO RHODES Information Interpreted: non-clinical & clinical Accompanied by: MEDICAL LIBRARIAN Allergies penicillin G Allergy (Severe, Verified 04/13/24 12:14) Itching latex Allergy (Intermediate, Verified 04/13/24 12:14) Itching nitrofurantoin Allergy (Intermediate, Verified 04/13/24 12:14) itching and redness (in the legs) HPI HPI dm: Details: Patient is 68 yo female with DM type 2 diagnosed around 2014, who presents for management her diabetes. Past medical history:DM2, HTN, HLD, COPD, ILDEFONSO, gastroparesis. Straw Baler: Jazzmine is here today to help Endo: Her last A1c was 6.9.. She is currently on trulicity 3 mg weekly. At our last visit I discontinued the metformin because she felt like her blood sugar was dropping low in the evening. She states for the last week she has been on prednisone which has caused the elevation in blood sugars. She thinks that is why her sensor is showing higher blood sugars. She does have metformin still at home but has not started taking this. She was on Levemir in the past but stopped this because she felt like she was getting hypoglycemic. She did not tolerate ozempic, -Continuous glucose monitoring: Mary Ann download shows she is using the sensor 69% of the time. Average glucose is 164 with G mi of 7.2 % and variability 29.9%. 69% range with 31% hyperglycemia and no hypoglycemia She is happy about her weight as it has come down since our last visit by 15 lb. She has been trying. -Eye exam: UTD May 2023 -Follows with Podiatry CV: Blood pressure today in the office is 130/78. She is currently on hydrochlorothiazide 25 mg, metoprolol 50 mg, and valsartan 320 mg. Her cholesterol is controlled with atorvastatin 40 mg. Her last LDL was 67. GI: We did review at her last visit that her liver tests were a little elevated. I did order a liver ultrasound which was reassuring but there were gallstones. We have reviewed this today in the office as she does not use her portal. She is completely asymptomatic. Denies any pain after eating or right upper quadrant/back pain. [facility] Medical History Frozen shoulder Frequent fecal incontinence Stool incontinence Osteoarthritis Chest pain Calcific tendinitis of left shoulder Weakness of left upper extremity Weakness of both lower extremities Joint pain in fingers of both hands Joint pain in both hands Bilateral knee pain Vitamin B12 deficiency Bilateral ankle pain Rash Right foot pain Medicare annual wellness visit, subsequent Cervical cancer screening Bronchopneumonia Chronic low back pain Bilateral foot pain Bilateral hip pain Annual physical exam Hyperlipidemia LDL goal <70 Bilateral hip pain Fibromyalgia Chronic bronchitis Vitamin D deficiency Post-thoracotomy pain syndrome COPD (chronic obstructive pulmonary disease) Depression Anxiety Type 2 diabetes mellitus with diabetic polyneuropathy Pulmonary nodules Allergic rhinitis GERD (gastroesophageal reflux disease) Morbid obesity with BMI of 40.0-44.9, adult Asthma Obstructive sleep apnea Lumbar degenerative disc disease Carcinoid tumor Coronary artery disease Benign essential hypertension Type 2 diabetes mellitus with hyperglycemia, with long-term current use of insulin Surgical History History of colonoscopy (~12/2013) History of tubal ligation History of lung biopsy (~07/2016) History of esophagogastroduodenoscopy (EGD) (~10/2011) History of lobectomy of lung (~08/2016) History of rectal sphincterotomy (~11/2013) History of cardiac cath (~07/2018) Family History Father Stroke Hypertension Diabetes Mother Diabetes Hypertension Other Arthritis Lupus Social History Household Members: Spouse Housing: Apartment Alcohol intake: never Patient Tobacco Use Status: Former Tobacco user Tobacco use type: Cigarette e-Cigarette/Vaping Use: Never Used Second Hand Smoke Exposure: Yes service: No Current occupational status: disabled Cognitive needs: No Hearing needs: No Vision needs: Yes Physical Exam Vital Signs: Oxygen Delivery Method Room Air 06/05/24 10:07 BMI result Body Mass Index 37.1 Const Orientation/consciousness: patient oriented x3 HEENT Ears: hearing grossly normal bilaterally Neck Thyroid: Thyroid normal Lymphatic: no lymphadenopathy noted Resp Auscultation: clear to auscultation bilaterally Cardio Rate: regular rate Rhythm: regular rhythm Heart sounds: S1 normal heart sound present and S2 normal heart sound present Skin General skin exam: no rashes or lesions noted Neuro General: patient oriented x3, gait normal and no focal motor deficits Results Reviewed Results Reviewed: Laboratory Tests 02/24/24 04/13/24 14:06 09:02 Sodium 141 Potassium 3.8 Chloride 105 Carbon Dioxide 29 Anion Gap 11 L BUN 11 Creatinine 0.59 Estimated GFR > 60 Fasting Glucose 123 H Estimat Average Glucose 151 Hemoglobin A1c % 6.9 H Triglycerides 69 Cholesterol 122 LDL Cholesterol, Calc 67 HDL Cholesterol 42 Urine Creatinine 305.82 Urine Microalbumin 36.0 Microalb/Creat Ratio 11.7 Assessment & Plan Assessment & Plan (1) Controlled type 2 diabetes mellitus: Code(s): E11.9 - Type 2 diabetes mellitus without complications Category: Medical Plan: advised to take the metformin while on prednisone Continue with the Trulicity 3 mg weekly. Advised to complete labs as ordered. (2) Elevated LFTs: Code(s): R79.89 - Other specified abnormal findings of blood chemistry Category: Medical Plan: We will monitor. Reviewed liver ultrasound today in office. We discussed signs and symptoms of gallstones that would require emergent medical treatment. Advised to follow up with PCP. (3) Benign essential hypertension: Code(s): I10 - Essential (primary) hypertension Category: Medical Plan: WNL. Continue current regimen (4) Pure hypercholesterolemia: Code(s): E78.00 - Pure hypercholesterolemia, unspecified Category: Medical Plan: At goal. Continue current regimen Coding Level of Care Code Est Pt Level 4 (51839) Complex EM visit Add On G2211 Diagnoses Controlled type 2 diabetes mellitus E11.9 Elevated LFTs R79.89 Benign essential hypertension I10 Pure hypercholesterolemia E78.00
[2024-06-05 10:07] VITALS: BP 130/78; PULSE 77; O2SAT 96; BMI 37.1
[2024-06-05 10:38] LABS: Glucose, Whole Blood 147 mg/dL (60-115)
== END 2024-06-05 10:37 | disposition home or self-care (01) ==
LOC: HO.ENCR 10:03
PROVIDERS: PCP Internal Medicine; Visit Provider Physician Assistant
DX: E11.9 Type 2 diabetes mellitus without complications (principal); R79.89 Other specified abnormal findings of blood chemistry; I10 Essential (primary) hypertension; E78.00 Pure hypercholesterolemia, unspecified

== ENCOUNTER → 2024-06-05 10:03 | Outpatient (BNVA) | payer MEDICARE, MEDICAID, SELFPAY | PROVIDERS: PCP Internal Medicine; Visit Provider Physician Assistant | DX: E11.9 Type 2 diabetes mellitus without complications (principal); R79.89 Other specified abnormal findings of blood chemistry; E78.00 Pure hypercholesterolemia, unspecified; I10 Essential (primary) hypertension | CPT/HCPCS: 82947; 99212 ==

== ENCOUNTER 2024-06-08 10:58 | Outpatient (AMB) | payer MEDICARE, MEDICAID, SELFPAY ==
--- NOTE | 2024-06-08 11:00 | A.OFFVIS_ITS ---
Vital Signs 06/08/24 11:01 Height 5 ft 1 in Weight 217 lb BMI 41.0 BP 120/66 Blood Pressure Location Rt brachial Position Sitting Pulse 77 Intake Visit Reasons: 3 mth follow up Full incontinence of feces Intake Note: Patient here to follow up full incontinence of feces. Patient c/o: reports involuntary BM accidents. Wears depends. ELIZABETH 03-01-2025. 2nd concern: on and off RUQ pain. Abd US: 05-01-2024~ Dx: Cholelithiasis. Chicken Vaccinator Required: No Accompanied by: TONGUE AND GROOVE MACHINE FEEDER Irma Allergies penicillin G Allergy (Severe, Verified 06/08/24 11:07) Itching latex Allergy (Intermediate, Verified 06/08/24 11:07) Itching nitrofurantoin Allergy (Intermediate, Verified 06/08/24 11:07) itching and redness (in the legs) Medication List - Last Reconciled 06/08/24 by Herve Sidhu MD [ADULT BRIEFS (size XL) As directed] [ADULT PULL-UPS (size XL) As directed] albuterol sulfate 90 mcg/actuation 2 puffs inhalation QID PRN albuterol sulfate 2.5 mg continuous nebulization Q4-6H PRN alcohol swabs 1 pad topical TID amitriptyline 25 mg PO BEDTIME aspirin 81 mg PO DAILY 90 days atorvastatin 40 mg PO DAILY blood pressure monitor As directed blood sugar diagnostic (OneTouch Verio test strips) Three times a day blood sugar diagnostic (OneTouch Verio test strips) As directed tests 4X/day blood-glucose meter Three times a day blood-glucose meter (OneTouch Verio Flex Meter) As directed trsts 4 X/day cholecalciferol (vitamin D3) 50 mcg PO DAILY 90 days clotrimazole-betamethasone 1-0.05 % 1 appl topical BID PRN 7 days cyanocobalamin (vitamin B-12) 1,000 mcg PO DAILY 90 days dexlansoprazole 60 mg PO DAILY dextromethorphan HBr 30 mg (2 x 15 mg) PO Q8H PRN 30 days dextromethorphan-guaifenesin 5-100 mg/5 mL (Robitussin Cough-Chest Congestion DM) 10 mL PO Q6-8H PRN 15 days diclofenac sodium 1% (Arthritis Pain (diclofenac)) 2 grams topical QID PRN dicyclomine 20 mg PO QID [DISPOSABLE WIPES As directed] [DISPOSABLE WIPES As directed] dulaglutide (Trulicity) 3 mg subcut QWEEK famotidine 40 mg PO BEDTIME 15 days flash glucose scanning reader (VIOSOStyle Mary Ann 2 [place]) As directed flash glucose sensor (FreeStyle Mary Ann 2 Sensor kit) As directed change every 14 days fluticasone propionate 220 mcg/actuation (Flovent HFA) 1 puff PO BID fluticasone propionate 50 mcg/actuation 2 sprays intranasal DAILY 30 days [FOUR-PRONGED CANE As directed] furosemide 20 mg PO DAILY glucose 12 grams (3 x 4 gram) PO Q15M hydrochlorothiazide 25 mg PO DAILY 90 days hydrocortisone 2.5% 1 appl topical BID PRN hydrocortisone 2.5% (Proctosol HC) 1 appl [place] BID ibuprofen 800 mg PO TID PRN ipratropium-albuterol 0.5 mg-3 mg(2.5 mg base)/3 mL 3 mL inhalation QID PRN lancets (OneTouch Delica Lancets) Three times a day lancets (FreeStyle Lancets) As directed three time a day lancets (OneTouch Delica Plus Lancet) As directed-tests 4 X/day lancets (FreeStyle Lancets) As directed lidocaine 5% (Lidoderm) 1 patch topical DAILY 30 days [LIGHTWEIGHT WALKER WITH SEAT walker with seat] linaclotide (Linzess) 72 mcg PO QAM loratadine 10 mg PO DAILY PRN 90 days memantine 10 mg PO BID metformin 500 mg PO DAILY metoclopramide HCl (Reglan) 5 mg PO .tidachs metoprolol succinate ER 50 mg PO DAILY montelukast 10 mg PO BEDTIME nebulizers As directed nystatin 1 appl topical TID pen needle, diabetic (BD Ultra-Fine Cindy Pen Needle) twice daily pen needle, diabetic (Comfort EZ Pen [place]) As directed injects once a day prednisone PO daily; Take 2 tabs daily x 5 days, then 1 tablet daily x 5 days 10 days pregabalin 200 mg PO Q8H 30 days psyllium husk (Metamucil) 1 tbsp PO BID roflumilast (Daliresp) 500 mcg PO DAILY 30 days [ROLLATOR with SEAT As directed] sertraline 50 mg PO DAILY Shower Chair As directed tiotropium-olodaterol 2.5-2.5 mcg/actuation (Stiolto Respimat) 2 puffs inhalation DAILY tizanidine 4 mg PO TID PRN tramadol 50 mg PO TID PRN 30 days umeclidinium-vilanterol 62.5-25 mcg/actuation (Anoro Ellipta) 1 inh inhalation DAILY valacyclovir 500 mg PO BID valsartan 320 mg PO DAILY HPI HPI 3 mth follow up Full incontinence of feces: Details: She is here for follow-up because of stool incontinence. I had seen her 3 months ago and I had asked her to take Metamucil at least twice a day because of her loose stools. She did not appear to have any sphincter defect at that time She says that she did not really take Metamucil for a significant period of the time as she did not feel that it was helping. She also says she was told she had gallstones and wanted to discuss this with me. She describes occasional abdominal pain [facility] Medical History Frozen shoulder Frequent fecal incontinence Stool incontinence Osteoarthritis Chest pain Calcific tendinitis of left shoulder Weakness of left upper extremity Weakness of both lower extremities Joint pain in fingers of both hands Joint pain in both hands Bilateral knee pain Vitamin B12 deficiency Bilateral ankle pain Rash Right foot pain Medicare annual wellness visit, subsequent Cervical cancer screening Bronchopneumonia Chronic low back pain Bilateral foot pain Bilateral hip pain Annual physical exam Hyperlipidemia LDL goal <70 Bilateral hip pain Fibromyalgia Chronic bronchitis Vitamin D deficiency Post-thoracotomy pain syndrome COPD (chronic obstructive pulmonary disease) Depression Anxiety Type 2 diabetes mellitus with diabetic polyneuropathy Pulmonary nodules Allergic rhinitis GERD (gastroesophageal reflux disease) Morbid obesity with BMI of 40.0-44.9, adult Asthma Obstructive sleep apnea Lumbar degenerative disc disease Carcinoid tumor Coronary artery disease Benign essential hypertension Type 2 diabetes mellitus with hyperglycemia, with long-term current use of insulin Surgical History History of colonoscopy (~12/2013) History of tubal ligation History of lung biopsy (~07/2016) History of esophagogastroduodenoscopy (EGD) (~10/2011) History of lobectomy of lung (~08/2016) History of rectal sphincterotomy (~11/2013) History of cardiac cath (~07/2018) Family History Father Stroke Hypertension Diabetes Mother Diabetes Hypertension Other Arthritis Lupus Social History Household Members: Spouse Housing: Apartment Alcohol intake: never Patient Tobacco Use Status: Former Tobacco user Tobacco use type: Cigarette e-Cigarette/Vaping Use: Never Used Second Hand Smoke Exposure: Yes service: No Current occupational status: disabled Cognitive needs: No Hearing needs: No Vision needs: Yes Review of Systems Const Denies chills Card Denies chest pain, Denies dyspnea and Reports dyspnea on exertion Resp Denies cough, Denies dyspnea and Reports dyspnea on exertion GI Denies hematochezia and Denies change in bowel habits Denies hematuria Musc Reports back pain, Reports arthralgias and Reports limited range of motion Neuro Denies focal weakness and Denies convulsions Psych Denies depression and Denies mood swings Physical Exam Vital Signs: Last Vital Signs Pulse 77 06/08/24 11:01 BP 120/66 06/08/24 11:01 BMI result Body Mass Index 41.0 Assessment & Plan Assessment & Plan (1) Frequent fecal incontinence: Code(s): R15.9 - Full incontinence of feces Category: Medical Plan: She states that she still leak stools periodically. This does not happen every day but she says she continues to wear pull-ups. She stopped taking Metamucil after a few days as she did not feel it was helpful. I told her that she should try this again as her stools are always loose. I told her to take 1 tbsp twice a day. She says she was gallstones and was wondering if her gallstones were contributory to her fecal incontinence but I told her that this should not be a factor . I did tell her that if her symptoms become more significant, then cholecystectomy may be considered. I did explain to her the technique of this procedure and I reviewed the risks, benefits, and alternatives. She did state that she would prefer to avoid any surgical intervention if possible. I will see her again in about 2-3 months. She is to avoid fatty food as well. Coding Level of Care Code Est Pt Level 3 (84162) Diagnoses Frequent fecal incontinence R15.9
[2024-06-08 11:01] VITALS: BP 120/66; PULSE 77; BMI 41.0
== END 2024-06-08 11:30 | disposition home or self-care (01) ==
LOC: HO.HGS 10:58
PROVIDERS: PCP Internal Medicine; Visit Provider Surgery
DX: R15.9 Full incontinence of feces (principal)
CPT/HCPCS: 99213

== ENCOUNTER → 2024-06-08 10:58 | Outpatient (BNVA) | payer MEDICARE, MEDICAID, SELFPAY | PROVIDERS: PCP Internal Medicine; Visit Provider Surgery | DX: R15.9 Full incontinence of feces (principal) | CPT/HCPCS: 99212 ==

== ENCOUNTER 2024-08-08 11:57 | Outpatient (REF) | payer MEDICARE, MEDICAID, SELFPAY ==
[2024-08-08 17:04] LABS: Influenza A PCR NEGATIVE (Negative); Influenza B PCR NEGATIVE (Negative); Resp Syncy Virus RNA Qual PCR NEGATIVE (Negative); SARS COV2 PCR INHOUSE NEGATIVE (Negative)
== END 2024-08-08 11:58 | disposition home or self-care (01) ==
LOC: HO.LAB 11:57
PROVIDERS: Physician Assistant; PCP Internal Medicine
DX: J06.9 Acute upper respiratory infection, unspecified (principal); R09.89 Other specified symptoms and signs involving the circulatory and respiratory systems; H66.001 Acute suppurative otitis media without spontaneous rupture of ear drum, right ear
CPT/HCPCS: 0241U; 99212

== ENCOUNTER 2024-08-08 11:57 | Outpatient (AMB) | payer MEDICARE, MEDICAID, SELFPAY ==
--- OUTSIDE RECORDS SUMMARY | 2024-08-08 12:25 | XMS_ITS | Clinical Summary ---
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 Plan from our standpoint will be for a 1 year follow-up CT scan of the chest and a visit in this office after that. All questions were answered. This visit was done through the video certified court interpreter services. Chronic obstructive pulmonar y disease ([facility] V24, [facility] V28) 09/29/2016 Obstructive sleep apnea syndrome 09/29/2016 Overview (12/23/2023): [facility] Home Polysomnogram: Date 05/17/2017; AHI 6, Unclassified apneas 0; Obstructive apneas 0; Central apneas 0; Mixed apneas 0; hypopneas 37; average oxygen saturation 94% (lowest 82% without saturations <88% for 5% or more of study) - Obstructive Sleep Apnea - mild; all hypopneas; no sleep related hypoventilation by 2018 home polysomnogram. Depression 04/04/2012 DM2 (diabetes mellitus, type 2) ([facility] V24, [facility] V28) 04/04/2012 Hyperlipidemia with target LDL less than [...] < 70 DM2 (diabetes mellitus, type 2) ([facility] V24, [facility] V28) 04/04/2012 DX:DM2 (diabetes mellitus, t ype 2) ([facility]) Lumbar disc disease 04/04/2012 DX:Lumbar di sc disease Depression 04/04/2012 DX:Depression Anxiety 04/04/2012 DX:Anxiety Obesity 04/04/2012 DX:Obesity LBBB (left bundle branch block) 04/04/2012 DX:LBBB (left bundle branch block) Emphysema lung ([facility] [place]24, [facility] V28) DX:Emphysema lung (HCC) Fibromyalgia DX:Fibromyalgia Arthritis DX:Arthritis Family [...] 02/28/2022 Hypertension/CHF/CAD Annual BMP Blood Test 02/28/2022 COVID-19 Vaccine (7 - Pfizer risk season) 2024 11/11/2023, 02/18/2023, 12/17/2021, Additional history exists Influenza Vaccine (Season Ended) 2024 01/13/2023, 02/14/2021, 01/11/2020, Additional history exists DTaP,Tdap,and Td Vaccines (3 - Td or Tdap) 05/11/2025 05/11/2015, 04/16/2015 Breast Cancer Screening 06/15/2025 06/16/19, 06/11/2022, 06/02/2021, Additional history exists Pneumococcal Vaccine: 50+ Years Completed 09/19/2021, 01/11/2020 Zoster Vaccines Completed 02/18/2023, 09/19/2021 RSV Immunization Adult Patients Completed 03/26/2023 HIB Vaccines Aged Out No longer eligi [...] age to complete this topic Meningococcal B Vaccine Aged Out No l onger eligible based on patient's age to complete this topic RSV Immunization Patients Under 20 months Aged Out No longer eligible based on patient's age to complete this topic Varicella Vaccines Aged Out No longer eligible based on patient's age to complete this topic Procedures Procedure Name Priority Date/Time Associated Diagnosis Comments [facility] SCREENING DIGITAL Routine 06/16/2023 11:59 AM EDT Encounter for screening mammogram for malignant neoplasm of breast from Last 3 Months or Most Recently Relevant to Health Maintenance Results * [facility] SCREENING DIGITAL (06/16/2023 11:59 AM EDT) Anatomical Region Laterality Modality Mammography 06/16/2023 10:3 6 AM EDT Narrative 06/16/2023 11:[address] [facility] Diagnostic Imaging Department [address] [place] [id number] Patient: ??PATO SAHU I ?/Age/Sex: 1955 - 67 - F Unit#: ??[id number] ? Location/Status: ??SPDIMAM/REG CLI ? Mnemonic/Ordering Site: ??DIGSC/SPMAM Ordering Physician: ??LEROY SANCHEZ MD [facility] Screening Digital - 06/16/23 - 1106 Report Status:Signed EXAM: [facility] Screening Digital EXAM DATE AND TIME: 06/16/2023 11:07 AM HISTORY: ??Annual screening COMPARISON: ??Multiple exams dating back to 2016 TECHNIQUE: Bilateral digital breast tomosynthesis was performed in the CC and MLO projections. Computer aided detection with [employer] 3D 3.1 was employed. TISSUE DENSITY: b. [...] Note Wally Moeller MD - 11/01/2023 [facility] Diagnostic Imaging Department [address] [place] [id number] Patient: IVYPATO Jordan /Age/Sex: 1955 - 67 - F Unit#: [id number] Location/Status: SPDIMA/REG CLI Mnemonic/Ordering Site: [facility] Ordering Physician: LEROY SANCHEZ MD [facility] Screening Digital - 06/16/23 - 1106 Report Status:Signed EXAM: [facility] Screening Digital EXAM DATE AND TIME: 06/16/2023 11:07 AM HISTORY: Annual screening COMPARISON: Multiple exams dating back to 2016 TECHNIQUE: Bilateral digital breast [facility]. Computer aided detection with [employer] AI 3D 3.1was employed. TISSUE DENSITY: b. [...] MEDICARE ADVANTAGE [place] - [place] Care Teams Park Interpretive Specialist Relationship Specialty Start Date End Date Leroy Sanchez MD [address] [place] [address] [address] Suarez PCP - General Internal Medicine 11/27/11
--- NOTE | 2024-08-08 13:03 | AM.OFFWIN_ITS ---
Intake Vital Signs 08/08/24 13:07 08/08/24 13:17 BP 127/79 124/80 Blood Pressure Location Rt brachial Lt brachial Position Sitting Sitting Pulse 87 75 Pulse Source Pulse Oximeter Pulse Oximeter Temp 98.7 F Temp Source Oral Pulse Oximetry (%) 99 99 Oxygen Delivery Method Room Air Room Air Intake Visit Reasons: EP-fever, body ache, cough Intake Note: Pt (Ecuadorean Speaking) came in with clinical unit coordinator c/o fever, sore throat, productive cough (white) and right ear pain x 2 days. While sitting in the waiting room, pt c/o dizziness. Vs stable, lungs - cta, heart sounds - regular. Pt is in no distress. Pt speaks in full sentences. Pt a/o x 3. Amb (I) slowly with a quad cane. ANDREY (Jie Wilder) and RAN (Moose) aware pt to be roomed. Patient Tobacco Use Status: Former Tobacco user Allergies penicillin G Allergy (Severe, Verified 08/08/24 13:14) Itching latex Allergy (Intermediate, Verified 08/08/24 13:14) Itching nitrofurantoin Allergy (Intermediate, Verified 08/08/24 13:14) itching and redness (in the legs) Do you need a note to return to daycare/school/sports/work: No HPI HPI Comments History of Present Illness Details Ecuadorean video interpretor used for this visit. 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 She has experienced confusion for the past two days, in conjunction with a sore throat and discomfort in her ears, right ear more than left ear. - Additional symptoms include a strong c ough and a recent instance of soft stool in the morning. She began sweating extensively while in the waiting room. - Her medical history includes Chronic O bstructive Pulmonary Disease (COPD), for which she uses inhalers and a nebulizer. She takes azithromycin 250 mg three times weekly, but observes little effect in her current condition. - The patient has been managing fever wi th Tylenol every eight hours, with noted effectiveness. Her highest temperature reading remains unspecified as her son took it and he is not here but her fever does come down with Tylenol use. - Right-sided ear pain is present; she h as a past surgical history of the ear (unsure what it is) and a history of ear infections. - She denies current shortness of breath or wheezing, but reports congestion. Physical Exam General: Cooperative, healthy appearing, comfortable and no acute distress Orientation/consciousness: Patient oriented x3 Limitations: No limitations Head: Normal to inspection Ears: Hearing grossly normal bilaterally, external ears normal, TM right with loss of landmarks and erythema with purulence, left TM with erythema Nose: Normal external nose present, Normal nares present and No nasal discharge present Face and sinus: Normal facial exam and sinuses slightly tender Mouth: Normal oral and palatal mucosa present and moist mucous membranes Throat: Yes tonsils normal, Yes uvula midline. Posterior oropharynx erythema Eyes: Appearance normal, both eyes and all related structures Neck: Normal visual inspection Respiratory: Clear but dim to auscultation bilaterally. Normal respiratory effort, able to speak in complete sentences, Actively coughing, no respiratory distress, not tachypneic, no tripod positioning and no use of accessory muscles Cardiovascular: Regular rate and rhythm. Normal S1 and S2 Skin: No rashes or lesions noted Neuro: Patient oriented x3 Extremities: Normal to inspection and Yes no clubbing, cyanosis or edema [facility] Medical History Frozen shoulder Frequent fecal incontinence Stool incontinence Osteoarthritis Chest pain Calcific tendinitis of left shoulder Weakness of left upper extremity Weakness of both lower extremities Joint pain in fingers of both hands Joint pain in both hands Bilateral knee pain Vitamin B12 deficiency Bilateral ankle pain Rash Right foot pain Medicare annual wellness visit, subsequent Cervical cancer screening Bronchopneumonia Chronic low back pain Bilateral foot pain Bilateral hip pain Annual physical exam Hyperlipidemia LDL goal <70 Bilateral hip pain Fibromyalgia Chronic bronchitis Vitamin D deficiency Post-thoracotomy pain syndrome COPD (chronic obstructive pulmonary disease) Depression Anxiety Type 2 diabetes mellitus with diabetic polyneuropathy Pulmonary nodules Allergic rhinitis GERD (gastroesophageal reflux disease) Morbid obesity with BMI of 40.0-44.9, adult Asthma Obstructive sleep apnea Lumbar degenerative disc disease Carcinoid tumor Coronary artery disease Benign essential hypertension Type 2 diabetes mellitus with hyperglycemia, with long-term current use of insulin Surgical History History of colonoscopy (~12/2013) History of tubal ligation History of lung biopsy (~07/2016) History of esophagogastroduodenoscopy (EGD) (~10/2011) History of lobectomy of lung (~08/2016) History of rectal sphincterotomy (~11/2013) History of cardiac cath (~07/2018) Family History Father Stroke Hypertension Diabetes Mother Diabetes Hypertension Other Arthritis Lupus Social History Household Members: Spouse Housing: Apartment Alcohol intake: never Patient Tobacco Use Status: Former Tobacco user Tobacco use type: Cigarette e-Cigarette/Vaping Use: Never Used Second Hand Smoke Exposure: Yes service: No Current occupational status: disabled Cognitive needs: No Hearing needs: No Vision needs: Yes Review of Systems Const All systems reviewed & are unremarkable except as noted in HPI and below Physical Exam Vital Signs: Last Vital Signs Temp 98.7 F 08/08/24 13:17 Pulse 75 08/08/24 13:17 BP 124/80 08/08/24 13:17 Pulse Ox 99 08/08/24 13:17 Oxygen Delivery Method Room Air 08/08/24 13:17 Assessment & Plan Assessment & Plan (1) URI, acute: Code(s): J06.9 - Acute upper respiratory infection, unspecified Plan: VSS, pt well appearing and PE unremarkable. I will treat the patient's suspected acute otitis media with antibiotics and maintain her current MWF azithromycin as part of her COPD chronic management. Corticosteroids like prednisone are not indicated due to the absence of wheezing or shortness of breath, she should continue inhalers and nebulizers as needed/prescribed. Tests for flu, COVID-19, and RSV are pending and will guide further action. She should limit Robitussin usage to seven days. I will follow up with her swab results to adjust management as needed, while anticipating potential treatment risks and complications. Patient was informed and verbally consented to the use of an ambient scribe for clinic note documentation during this visit (2) Otitis media of right ear: Code(s): H66.91 - Otitis media, unspecified, right ear Qualifiers: Otitis media type: suppurative Chronicity: acute Recurrence: non- recurrent Spontaneous tympanic membrane rupture: without spontaneous rupture Qualified Code(s): H66.001 - Acute suppurative otitis media without spontaneous rupture of ear drum, right ear Plan: as above Orders: Orders SARS-CoV2/FLU/RSV Today R09.89 - Other specified symptoms and signs involving the circulatory and respiratory systems Medications: New cefdinir 300 mg PO Q12H 14 caps 0RF Coding Level of Care Code Est Pt Level 3 (84841) Diagnoses URI, acute J06.9 Non-recurrent acute suppurative otitis media of right ear without spontaneous rupture of tympanic membrane H66.001 Otitis media type: suppurative Chronicity: acute Recurrence: non-recurrent Spontaneous tympanic membrane rupture: without spontaneous rupture
[2024-08-08 13:07] VITALS: BP 127/79; PULSE 87; O2SAT 99
[2024-08-08 13:17] VITALS: BP 124/80; PULSE 75; TEMP 37.1; O2SAT 99
== END 2024-08-08 14:22 | disposition home or self-care (01) ==
PROVIDERS: PCP Internal Medicine; Visit Provider Physician Assistant
DX: J06.9 Acute upper respiratory infection, unspecified (principal); H66.001 Acute suppurative otitis media without spontaneous rupture of ear drum, right ear

== ENCOUNTER 2024-08-28 11:03 | Outpatient (AMB) | payer MEDICARE, MEDICAID, SELFPAY ==
[2024-08-28 11:07] VITALS: BP 116/56; PULSE 88; O2SAT 99; BMI 40.4
--- NOTE | 2024-08-28 11:07 | A.OFFVIS_ITS ---
Vital Signs 08/28/24 11:07 Height 5 ft 1 in Weight 213 lb 13.574 oz BMI 40.4 BP 116/56 L Blood Pressure Location Lt brachial Position Sitting Pulse 88 Pulse Source Pulse Oximeter Pulse Oximetry (%) 99 Oxygen Delivery Method Room Air Intake Visit Reasons: COPD Allergies penicillin G Allergy (Severe, Verified 08/28/24 11:12) Itching latex Allergy (Intermediate, Verified 08/28/24 11:12) Itching nitrofurantoin Allergy (Intermediate, Verified 08/28/24 11:12) itching and redness (in the legs) HPI Comments Details: The patient is a 69-year-old woman known carcinoid tumor status post resection. The patient also has a history of asthma and obstructive sleep apnea. She has been using the new respironic dream station. She is using more than 4 hours a night. However, she has not gotten any supplies. I did call her [employer] company and sent they will facilitate some supplies. In the meantime I did provide her mask F30 that she can try. Her asthma appears to be stable with the current respiratory medications. She has not had to use her rescue inhaler and she has not to use prednisone. She has been complaining of some discomfort over the right flank area. 03/25/2023 the patient is here for pulmonary follow-up visit. Overall she is doing better. She did complain the prednisone and the antibiotics during the last visit. Her chest discomfort is better. We did discuss and review the images from her last CT scan back in September 2022 with stable postoperative changes stable pulmonary nodules. She is due for repeat CT scan in September 2023. she continues use respiratory therapy with good effect. Her sleeping is overall better. again, her sleep study did not demonstrate any sleep apnea. She is using the Stiolto in the Flovent. These inhalers have been effective. Her respiratory exam is reassuring. The patient continues to do well will consider minimizing the inhaled steroid component. 08/05/2023 the patient is here for a pulmonary follow-up visit. The patient is still no better. She is still coughing. She had called a few weeks ago and I did send her a course of doxycycline. She did not feel like she completely improved she still having hard time with cough. Moderate severity. Denies any wheezing or chest tightness. She denies any fevers or chills. In addition to that she has been complaining of significant daytime drowsiness. She had been on CPAP before we had gotten multiple sleep studies but they have been negative for any sleep apnea. Although these were home sleep studies and the patient was not able to adequately sleep well during the study. She does have an elevated [place] score of 13/24. She does have cardiovascular risk factors. She also carries a diagnosis of sleep apnea. Will go ahead and request a repeat in-lab sleep study in order to get her back on CPAP. The patient also been followed closely for carcinoid lung cancer. The patient also has multiple pulmonary nodules that are being followed. Her last CT scan was 11/01/2022 and she is due for CT scan in 2023. Will go ahead and follow up with the patient after her CT scan in her sleep study. In the meantime will send her a 2nd course of antibiotics to treat her for bronchitis. She does not have any wheezing so therefore hold off on any prednisone. 11/11/2023 the patient is here for a pulmonary follow-up visit. The patient was in her usual state health until the last few months. She has not been feeling well she has had this productive cough now for several months. The last time she was here she was given Vantin but she did not feel like it helped. She still bringing up phlegm usually whitish or yellowish in color. Denies any hemoptysis. Typically sounds barky in nature. She has not underlying chronic bronchitis. Will going to go ahead and start her on azithromycin 3 times a week. In addition to that if she is no better she will get a sputum culture. She did have a CT scan of the chest done recently done on 10/18/2023 [facility]. It appears that she has a growing or new right upper lobe pulmonary nodule measuring 6 mm in size. The largest nodule that she had there a year ago was only 3 mm in size. Therefore, she is scheduled to go for repeat CT scan in 3-6 months. She will do that at [facility] as well. We did talk about the relevance of that. In the meantime will go ahead and treat her for the chronic bronchitis. She will continue with respiratory therapy. 12/23/2023 the patient is here for a pulmonary follow-up visit. She continues to have significant daytime drowsiness. Her [place] score is elevated 12/24. She was scheduled for the sleep study but then she had to reschedule. She has a new date sometime in January. The patient also has been having issues with a productive cough. She did complete the antibiotics and her mucus is clear but she still having significant chest congestion. Moderate severity. The only thing that helps her is when she goes on prednisone. Explained to her the concerns about using prednisone and worsening her other comorbidities. Therefore based on her chronic bronchitis and her frequent use of prednisone she will be a perfect candidate for Daliresp. We did talk about the adverse effects. Will go ahead and start her on the 500 mcg dose but she started every other day or so to get used to it. The patient also will be provided some prednisone case she gets worse but she should hold off for now. In addition to that she was found to have a new nodule back in October at [facility] was a 6 mm nodule. She is scheduled to have a repeat CT scan at [facility] in January. 05/02/2024 the patient is here for a pulmonary follow-up visit. Overall the patient has been doing well. She did start azithromycin 3 times a week and seems to be controlling her cough and chest congestion. Therefore will continue. She will need to get an EKG. In addition to that she did have a CT scan of the chest done in [facility]. Demonstrating that the 6 mm nodule decreased down to 4 mm in the other nodules are stable. She has not reticular changes likely postoperative changes which are not significant and done appear to be progressive. In addition to that she is struggling with CPAP. She is trying to use it but she does not feel like her mask is comfortable. I did call [facility] to see if they can switch her mask to an N20 mask. She will take it to her next appointment with [facility] to try to have some additional teachings in order to be able to be effective in using her CPAP. She needs to be able to use it 4 hours daily. She will follow-up in 3-4 months if she has any issues prior to that she will call for an earlier assessment. 08/28/2024 the patient is here for pulmonary follow-up visit. Overall she is doing okay. She has multiple elements including shortness of breath. Gets very winded with minimal activity. Also has significant arthritis and abdominal discomfort. This may be also playing a role in her dyspnea symptoms. She did recently have a CT scan of the chest I believe at [facility] to the thoracic surgery Department. Will request a copy. On previous CAT scan she was noted to have some gallstones. She is having right upper quadrant abdominal discomfort. During the visit we did go for brief walking oximetry the patient is oxygen seems to be doing okay. She may have more issues with bronchospasms during the day when she is outside walking and humidity that can also cause her to have bronchospasms. Therefore she can use her rescue inhaler prior to doing any activity specially outside. She continues use her CPAP. She is asking for smaller mask. I did provide her with an N30 I medium-sized mask. She is going to use it. Will request from from the [employer] as well. The CPAP therapy has been affecting beneficial and she does try to use it 4 hours a night as this is very important for her. Will follow-up in 4 months. If she has any issues prior to this she will call otherwise she will continue her current respiratory therapy and will follow-up with her primary care doctor regarding her abdominal symptoms and question of gallbladder disease. Tele if her symptoms were to worsen she would have to go to the ER for immediate care. [facility] Medical History Frozen shoulder Frequent fecal incontinence Stool incontinence Osteoarthritis Chest pain Calcific tendinitis of left shoulder Weakness of left upper extremity Weakness of both lower extremities Joint pain in fingers of both hands Joint pain in both hands Bilateral knee pain Vitamin B12 deficiency Bilateral ankle pain Rash Right foot pain Medicare annual wellness visit, subsequent Cervical cancer screening Bronchopneumonia Chronic low back pain Bilateral foot pain Bilateral hip pain Annual physical exam Hyperlipidemia LDL goal <70 Bilateral hip pain Fibromyalgia Chronic bronchitis Vitamin D deficiency Post-thoracotomy pain syndrome COPD (chronic obstructive pulmonary disease) Depression Anxiety Type 2 diabetes mellitus with diabetic polyneuropathy Pulmonary nodules Allergic rhinitis GERD (gastroesophageal reflux disease) Morbid obesity with BMI of 40.0-44.9, adult Asthma Obstructive sleep apnea Lumbar degenerative disc disease Carcinoid tumor Coronary artery disease Benign essential hypertension Type 2 diabetes mellitus with hyperglycemia, with long-term current use of insulin Surgical History History of colonoscopy (~12/2013) History of tubal ligation History of lung biopsy (~07/2016) History of esophagogastroduodenoscopy (EGD) (~10/2011) History of lobectomy of lung (~08/2016) History of rectal sphincterotomy (~11/2013) History of cardiac cath (~07/2018) Family History Father Stroke Hypertension Diabetes Mother Diabetes Hypertension Other Arthritis Lupus Social History Household Members: Spouse Housing: Apartment Alcohol intake: never Patient Tobacco Use Status: Former Tobacco user Tobacco use type: Cigarette e-Cigarette/Vaping Use: Never Used Second Hand Smoke Exposure: Yes service: No Current occupational status: disabled Cognitive needs: No Hearing needs: No Vision needs: Yes Review of Systems Const Reports difficulty sleeping, Denies fatigue, Denies fever(s), Denies night sweats, Denies poor appetite, Reports snoring and Denies weight loss ENT Reports Normal hearing present, Denies dental pain, Denies dysphagia, Denies hearing loss, Denies mouth pain, Denies odynophagia, Denies throat swelling, Denies tongue swelling and Reports other (Dentition adequate) Card Denies chest pain and Reports dyspnea on exertion Resp Reports change in phlegm color, Reports chest congestion, Reports cough, Reports dyspnea on exertion, Reports snoring and Reports wheezing GI Reports abdominal pain, Denies melena, Reports bloating, Denies hematochezia, Denies constipation, Denies GI cramping, Denies dysphagia, Denies excessive flatus, Denies early satiety, Reports heartburn, Denies nausea, Denies odynophagia, Denies vomiting and Denies hematemesis Musc Reports no additional complaints and Reports myalgias Skin/Breast Denies pruritus, Denies lesions, Denies rash and Denies jaundice Neuro Reports Normal hearing present and Denies Abnormal speech present Endo Denies fatigue Aller/Immun Denies throat swelling, Denies tongue swelling and Reports wheezing Physical Exam Vital Signs: Last Vital Signs Pulse 88 08/28/24 11:07 BP 116/56 L 08/28/24 11:07 Pulse Ox 99 08/28/24 11:07 Oxygen Delivery Method Room Air 08/28/24 11:07 BMI result Body Mass Index 40.4 Const Orientation/consciousness: patient oriented x3 Neck Thyroid: Thyroid normal Lymphatic: no lymphadenopathy noted Resp Effort & Inspection: normal respiratory effort Auscultation: diminished lung sounds Cardio Rate: regular rate Rhythm: regular rhythm Heart sounds: S1 normal heart sound present and S2 normal heart sound present Skin General skin exam: no rashes or lesions noted Neuro General: patient oriented x3, gait normal and no focal motor deficits Cranial nerves: Yes Normal hearing present Speech: No Abnormal speech present Extrem Other: sensation intact General: Yes normal to inspection, Yes full ROM and Yes capillary refill normal Assessment & Plan Assessment & Plan (1) Carcinoid tumor: Comment: (S/P RUL lobectomy at [facility] - 08/2016) Code(s): D3A.00 - Benign carcinoid tumor of unspecified site Category: Medical Qualifiers: Carcinoid tumor location: lung Carcinoid tumor malignancy status: malignant Qualified Code(s): C7A.090 - Malignant carcinoid tumor of the bronchus and lung (2) Post-thoracotomy pain syndrome: Code(s): G89.12 - Acute post-thoracotomy pain Category: Medical (3) Pulmonary nodules: Comment: Likely tumorlets Code(s): R91.8 - Other nonspecific abnormal finding of lung field Category: Medical (4) Obstructive sleep apnea: Code(s): G47.33 - Obstructive sleep apnea (adult) (pediatric) Category: Medical (5) Chronic bronchitis: Code(s): J42 - Unspecified chronic bronchitis Category: Medical Qualifiers: Chronic bronchitis type: mucopurulent Qualified Code(s): J41.1 - Mucopurulent chronic bronchitis (6) Gallstones: Code(s): K80.20 - Calculus of gallbladder without cholecystitis without obstruction Category: Medical Plan continue Flovent continue Stiolto daily SANGITA as needed nebulizer as needed Claritin continue Singulair complete Azithromycin MWF and stop stop Daliresp 500mcg daily Requesting CT chest per Thoracic surgery at [facility]; RUL 6mm->4mm continue APAP usage, requesting N20 and reteaching with DME, Regional, N30 medium F/U 3-4 months Medications: Refilled albuterol sulfate 90 mcg/actuation 2 puffs inhalation QID PRN 8.5 grams 11RF bronchospasm Coding Level of Care Code Est Pt Level 4 (85637) Complex EM visit Add On G2211 Diagnoses 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 Carcinoid tumor location: lung Carcinoid tumor malignancy status: malignant Post-thoracotomy pain syndrome G89.12 Pulmonary nodules R91.8 Obstructive sleep apnea G47.33 Mucopurulent chronic bronchitis J41.1 Chronic bronchitis type: mucopurulent Gallstones K80.20 Time Spent (min) 17
--- OUTSIDE RECORDS SUMMARY | 2024-08-28 12:38 | XMS_ITS | Encounter Summary ---
Author Organization [facility] Address [address] [place] [address] Care Team Providers Care Can Intake Worker Name Role Phone Leroy Jauregui MD Primary Care Provider Leroy Garcia MD Unavailable Unavailable Pratibha Waggoner MD Unavailable Encounter Details Date Type Department Care Team Description 10/21/2023 Orders Only [facility] Thoracic Surgery [place] [address] [facility] [address] [place] [id number] Pratibha Waggoner MD [address] [facility] [place] [address] [place] [address] [id number] Malignant carcinoid tumor of lung (HCC); Pulmonary [...] field documented in this encounter Care Teams Can Intake Worker Relationship Specialty Start Date End Date Leroy Jauregui MD PCP - General Internal Medicine 11/11/21 Leroy Jauregui MD Internal Medicine 11/11/21 Pratibha Waggoner MD Lung Cancer Apprentice Technician 12/28/22 documented as of this encounter
== END 2024-08-28 11:45 | disposition home or self-care (01) ==
LOC: HO.HPS 11:04
PROVIDERS: PCP Internal Medicine; Visit Provider Hospitalist
DX: C7A.090 Malignant carcinoid tumor of the bronchus and lung (principal); G89.12 Acute post-thoracotomy pain; R91.8 Other nonspecific abnormal finding of lung field; G47.33 Obstructive sleep apnea (adult) (pediatric); J41.1 Mucopurulent chronic bronchitis; K80.20 Calculus of gallbladder without cholecystitis without obstruction
CPT/HCPCS: 99214; G2211

== ENCOUNTER → 2024-08-28 11:03 | Outpatient (BNVA) | payer MEDICARE, MEDICAID, SELFPAY | PROVIDERS: PCP Internal Medicine; Visit Provider Hospitalist | DX: C7A.090 Malignant carcinoid tumor of the bronchus and lung (principal); G89.12 Acute post-thoracotomy pain; R91.8 Other nonspecific abnormal finding of lung field; G47.33 Obstructive sleep apnea (adult) (pediatric); K80.20 Calculus of gallbladder without cholecystitis without obstruction; J41.1 Mucopurulent chronic bronchitis | CPT/HCPCS: 99212 ==

== ENCOUNTER 2024-09-04 09:48 | Outpatient (REF) | payer MEDICARE, MEDICAID, SELFPAY ==
[2024-09-04 10:05] LABS: MANUAL DIFF FLAG NO
[2024-09-04 10:34] LABS: Basophils Absolute Auto 0.1 X10*3/uL (0.0-0.2); Basophils Percent Auto 0.5 % (0-2); Eosinophils Absolute Auto 0.2 X10*3/uL (0.0-0.4); Eosinophils Percent Auto 2.1 % (0-4); Hematocrit 35.4 % (37.0-47.0); Hemoglobin 11.5 g/dl (12.0-16.0); Imm Gran Abs Auto 0.04 X10*3/uL (0.00-0.03); Imm Gran Pct Auto 0.4 % (0.0-0.4); Lymphocytes Absolute Auto 3.4 X10*3/uL (1.2-4.9); Lymphocytes Percent Auto 35.5 % (20-40); Mean Corpuscular HGB Conc 32.5 g/dl (31.0-35.0); Mean Corpuscular Hemoglobin 27.1 pg (27.0-33.0); Mean Corpuscular Volume 83.5 fL (80.0-98.0); Mean Platelet Volume 10.9 fL (9.4-12.3); Monocytes Absolute Auto 0.6 X10*3/uL (0.1-1.2); Monocytes Percent Auto 6.3 % (2-11); Neutrophils Absolute Auto 5.3 x10*3/uL (2.0-8.3); Neutrophils Percent Auto 55.2 % (45-73); Platelet Count 291 X10*3/uL (160-400); Red Blood Count 4.24 X10*6/uL (4.20-5.50); Red Cell Distribution Width 14.4 % (11.0-16.0); White Blood Count 9.7 X10*3/uL (4.8-10.8)
--- OUTSIDE RECORDS SUMMARY | 2024-09-04 10:39 | XMS_ITS | Clinical Summary ---
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 Plan from our standpoint will be for a 1 year follow-up CT scan of the chest and a visit in this office after that. All questions were answered. This visit was done through the video venipuncturist services. Chronic obstructive pulmonar y disease ([facility] V24, [facility] V28) 09/29/2016 Obstructive sleep apnea syndrome 09/29/2016 Overview (12/23/2023): [facility] Home Polysomnogram: Date 05/17/2017; AHI 6, Unclassified apneas 0; Obstructive apneas 0; Central apneas 0; Mixed apneas 0; hypopneas 37; average oxygen saturation 94% (lowest 82% without saturations <88% for 5% or more of study) - Obstructive Sleep Apnea - mild; all hypopneas; no sleep related hypoventilation by 2018 home polysomnogram. Depression 04/04/2012 DM2 (diabetes mellitus, type 2) ([facility] V24, [facility] V28) 04/04/2012 Hyperlipidemia with target LDL less [...] < 70 DM2 (diabetes mellitus, type 2) ([facility] V24, [facility] V28) 04/04/2012 DX:DM2 (diabetes mellitus, t ype 2) ([facility]) Lumbar disc disease 04/04/2012 DX:Lumbar di sc disease Depression 04/04/2012 DX:Depression Anxiety 04/04/2012 DX:Anxiety Obesity 04/04/2012 DX:Obesity LBBB (left bundle branch block) 04/04/2012 DX:LBBB (left bundle branch block) Emphysema lung ([facility] V24, [facility] V28) DX:Emphysema lung (HCC) Fibromyalgia DX:Fibromyalgia Arthritis [...] 80 02/21/2024 10:39 AM EST Temperature 36.7 C (98.1 F) 02/21/2024 10:39 AM EST Respiratory Rate 18 02/21/2024 10:39 AM EST [...] Name Priority Date/Time Associated Diagnosis Comments [facility] SCREENING DIGITAL Routine 06/16/2023 11:59 AM EDT Encounter for screening mammogram for malignant neoplasm of breast from Last 3 Months or Most Recently Relevant to Health Maintenance Results * [facility] SCREENING DIGITAL (06/16/2023 11:59 AM EDT) Anatomical Region Laterality Modality Mammography 06/16/2023 10:3 6 AM EDT Narrative 06/16/2023 11:59 AM EDT [facility] Diagnostic Imaging Department [address] [place] [address] Patient: PATO SAHU I /Age/Sex: 1955 - 67 - F Unit#: [id number] Location/Status: SPDIMAM/REG CLI Mnemonic/Ordering Site: [facility] Ordering Physician: LEROY SANCHEZ MD [facility] Screening Digital - 06/16/23 - 1106 Report Status:Signed EXAM: [facility] Screening Digital EXAM DATE AND TIME: 06/16/2023 11:07 AM HISTORY: Annual screening COMPARISON: Multiple exams dating back to 2016 TECHNIQUE: Bilateral digital breast tomosynthesis was performed in the CC and MLO projections. Computer aided detection with [employer] 3D 3.1 was employed. TISSUE DENSITY: b. There are scattered areas of fibroglandular density. FINDINGS: No suspicious masses, grouped microcalcifications, or areas of architectural distortion are seen. The skin and vascularity are unremarkable. IMPRESSION: Stable mammographic appearance of the breasts. No evidence of malignancy is seen. A negative [...] Date/Time: 06/16/23 1158 Sign date/Time: 06/16/23 1159 Procedure Note Wally Moeller MD - 11/01/2023 [facility] Diagnostic Imaging Department [address] [place] [id number] Patient: PATO SAHU Nikki /Age/Sex: 1955 - 67 - F Unit#: [id number] Location/Status: SPDIMAM/REG CLI Mnemonic/Ordering Site: [facility] Ordering Physician: LEROY SANCHEZ MD [facility] Screening Digital - 06/16/23 - 1106 Report Status:Signed EXAM: [facility] Screening Digital EXAM DATE AND TIME: 06/16/2023 11:07 AM HISTORY: Annual screening COMPARISON: Multiple exams dating back to 2016 TECHNIQUE: Bilateral digital breast tomosynthesis was performed in the CCand MLO projections. Computer aided detection with [employer] 3D 3.1was employed. TISSUE DENSITY: b. There [...] MEDICARE ADVANTAGE MEDICAID - [place] Care Teams Retail General Manager Relationship Specialty Start Date End Date Leroy Sanchez MD [address] [place] [address] [address] RAN Suarez PCP - General Internal Medicine 11/27/11
[2024-09-04 10:41] LABS: Estimated Average Glucose 160 mg/dL; Hemoglobin A1c % 7.2 % (<6.0)
[2024-09-04 10:56] LABS: Appearance Urine Clear; Color Urine Yellow; Glucose Urine UA Negative (Negative); Leukocyte Esterase Urine Negative (Negative); Nitrite Urine Negative (Negative); PH 6.5 (5.0-9.0); Specific Gravity - Urine 1.015 (1.005-1.025); Urine Blood Negative (Negative); Urine Ketones Negative (Negative); Urine Protein Negative (Neg-Trace)
[2024-09-04 11:14] LABS: Creatinine Urine 55.96 mg/dL; Microalbumin Urine < 5.0 mg/L
[2024-09-04 11:21] LABS: Alanine Aminotransferase 11 U/L (0-31); Albumin Level 3.9 g/dL (3.5-5.0); Alkaline Phosphatase 170 U/L (39-117); Anion Gap 11 (12-20); Aspartate Amino Transferase 35 U/L (5-31); Bilirubin Total 0.4 mg/dL (0.0-1.0); Blood Urea Nitrogen 18 mg/dL (9-16); Carbon Dioxide 27 mmol/L (22-29); Chloride 105 mmol/L (96-108); Cholesterol 124 mg/dL (<200); Estimated Glomerular Filt Rate > 60; Glucose Fasting 103 mg/dL (60-99); HDL Cholesterol 44 mg/dL (>40); LDL Cholesterol Calculated 69 mg/dL (<100); Potassium 4.1 mmol/L (3.3-5.1); Sodium 139 mmol/L (135-145); TSH reflex Free T4 1.34 uIU/mL (0.32-4.0); Total Protein 6.8 g/dL (6.5-8.0); Triglycerides 55 mg/dL (<150); Vitamin D 25-OH Total 35.9 ng/mL (>30)
[2024-09-04 11:30] LABS: Folate 12.8 ng/mL (> or = 4.0); Vitamin B12 1482 pg/mL (200-900)
== END 2024-09-04 09:49 | disposition home or self-care (01) ==
LOC: HO.LAB 09:48
PROVIDERS: Absent Provider Physician Assistant; PCP Internal Medicine; Visit Provider Internal Medicine
DX: R30.0 Dysuria (principal); E55.9 Vitamin D deficiency, unspecified; D64.9 Anemia, unspecified; E78.00 Pure hypercholesterolemia, unspecified; E53.8 Deficiency of other specified B group vitamins; E11.42 Type 2 diabetes mellitus with diabetic polyneuropathy; Z79.4 Long term (current) use of insulin; Z79.85 Long-term (current) use of injectable non-insulin antidiabetic drugs
CPT/HCPCS: 36415; 80053; 80061; 81003; 82043; 82306; 82570; 82607; 82746; 82947; 83036; 84443; 85025; 99212

== ENCOUNTER 2024-09-04 10:53 | Outpatient (AMB) | payer MEDICARE, MEDICAID, SELFPAY ==
[2024-09-04 11:00] VITALS: BP 144/64; PULSE 55; O2SAT 93; BMI 40.9
--- NOTE | 2024-09-04 11:00 | A.OFFVIS_ITS ---
Vital Signs 09/04/24 11:00 Height 5 ft 1 in Weight 216 lb 4.375 oz BMI 40.9 BP 144/64 H Blood Pressure Location Rt brachial Position Sitting Pulse 55 Pulse Source Pulse Oximeter Pulse Oximetry (%) 93 Oxygen Delivery Method Room Air Intake Visit Reasons: DM Intake Note: Patient present today for Type 2 Diabetes Mellitus Last Diabetic eye exam: 09/2023 has upcoming appt 12/31/24 Last Podiatry Visit: Doesn't have one Random Glucose: 139 mg/dl HgA1C: 7.2% Special Needs Tutor Required: Yes Special Needs Tutor Language: Real Estate Inspector Services: Special Needs Tutor Offered & Declined Accompanied by: TARE MAN Allergies penicillin G Allergy (Severe, Verified 09/04/24 11:08) Itching latex Allergy (Intermediate, Verified 09/04/24 11:08) Itching nitrofurantoin Allergy (Intermediate, Verified 09/04/24 11:08) itching and redness (in the legs) Medication List - Last Reconciled 09/04/24 by Miriam Nix PA-C [ADULT BRIEFS (size XL) As directed] [ADULT PULL-UPS (size XL) As directed] albuterol sulfate 2.5 mg continuous nebulization Q4-6H PRN albuterol sulfate 90 mcg/actuation 2 puffs inhalation QID PRN alcohol swabs 1 pad topical TID amitriptyline 25 mg PO BEDTIME aspirin 81 mg PO DAILY 90 days atorvastatin 40 mg PO DAILY azithromycin 250 mg PO 3XW 28 days blood pressure monitor As directed blood sugar diagnostic (OneTouch Verio test strips) Three times a day blood sugar diagnostic (OneTouch Verio test strips) As directed tests 4X/day blood-glucose meter Three times a day blood-glucose meter (OneTouch Verio Flex Meter) As directed trsts 4 X/day cholecalciferol (vitamin D3) 50 mcg PO DAILY 90 days clotrimazole-betamethasone 1-0.05 % 1 appl topical BID PRN 7 days cyanocobalamin (vitamin B-12) 1,000 mcg PO DAILY 90 days dexlansoprazole 60 mg PO DAILY dextromethorphan HBr 30 mg (2 x 15 mg) PO Q8H PRN 30 days diclofenac sodium 1% (Arthritis Pain (diclofenac)) 2 grams topical QID PRN dicyclomine 20 mg PO QID [DISPOSABLE WIPES As directed] [DISPOSABLE WIPES As directed] famotidine 40 mg PO BEDTIME 15 days flash glucose scanning reader (The Invisible ArmorStyle Mary Ann 2 Clarence) As directed flash glucose sensor (FreeStyle Mary Ann 2 Sensor kit) As directed change every 14 days fluticasone propionate 220 mcg/actuation (Flovent HFA) 1 puff PO BID fluticasone propionate 50 mcg/actuation 2 sprays intranasal DAILY 30 days [FOUR-PRONGED CANE As directed] furosemide 20 mg PO DAILY glucose 12 grams (3 x 4 gram) PO Q15M hydrochlorothiazide 25 mg PO DAILY 90 days hydrocortisone 2.5% 1 appl topical BID PRN hydrocortisone 2.5% (Proctosol HC) 1 appl MD BID ibuprofen 800 mg PO TID PRN ipratropium-albuterol 0.5 mg-3 mg(2.5 mg base)/3 mL 3 mL inhalation QID PRN lancets (OneTouch Delica Lancets) Three times a day lancets (FreeStyle Lancets) As directed three time a day lancets (OneTouch Delica Plus Lancet) As directed-tests 4 X/day lancets (FreeStyle Lancets) As directed lidocaine 5% (Lidoderm) 1 patch topical DAILY 30 days [LIGHTWEIGHT WALKER WITH SEAT walker with seat] linaclotide (Linzess) 72 mcg PO QAM Held on 11/16/23. Instructions: Doctor's Order loratadine 10 mg PO DAILY PRN 90 days memantine 10 mg PO BID metformin 500 mg PO DAILY metoclopramide HCl (Reglan) 5 mg PO .tidachs metoprolol succinate ER 50 mg PO DAILY montelukast 10 mg PO BEDTIME nebulizers As directed nystatin 1 appl topical TID pen needle, diabetic (BD Ultra-Fine Cindy Pen Needle) twice daily pen needle, diabetic (Comfort EZ Pen [place]) As directed injects once a day pregabalin 200 mg PO Q8H 30 days psyllium husk (Metamucil) 1 tbsp PO BID roflumilast (Daliresp) 500 mcg PO DAILY 30 days [ROLLATOR with SEAT As directed] sertraline 50 mg PO DAILY Shower Chair As directed tiotropium-olodaterol 2.5-2.5 mcg/actuation (Stiolto Respimat) 2 puffs inhalation DAILY tirzepatide (Mounjaro) 2.5 mg (0.5 mL) subcut QWEEK tizanidine 4 mg PO TID PRN tramadol 50 mg PO TID PRN 30 days umeclidinium-vilanterol 62.5-25 mcg/actuation (Anoro Ellipta) 1 inh inhalation DAILY valacyclovir 500 mg PO BID valsartan 320 mg PO DAILY HPI HPI DM: Details: Patient is 69 yo female with DM type 2 diagnosed around 2014, who presents for management her diabetes. Past medical history:DM2, HTN, HLD, COPD, ILDEFONSO, gastroparesis. Special Needs Tutor: daughter in law is here today to help Endo: Her last A1c was 7.2. She is currently on trulicity 3 mg weekly. -metformin is still on her medication list because she uses it if needed. She has not used it recently. -she tells me stopped the Trulicity because it is causing intermittent nausea she wants to go on Mounjaro and states that she would like to see more weight loss She was on Levemir in the past but stopped this because she felt like she was getting hypoglycemic. She did not tolerate ozempic, -Continuous glucose monitoring: Mary Ann download shows she is using the sensor 69% of the time. Average glucose is 150 with G mi of 6.9 % and variability 24%. 79% range with 21% hyperglycemia and no hypoglycemia -Eye exam: UTD October 2023, scheduled -no longer follows with Podiatry. Checks her feet regularly. Denies any concerns CV: Blood pressure today in the office is 144/64. She is currently on hydrochlorothiazide 25 mg, metoprolol 50 mg, and valsartan 320 mg. Her cholesterol is controlled with atorvastatin 40 mg. Her last LDL was 67. [facility] Medical History (Updated 09/04/24 @ 12:02 by Miriam Nix PA-C) Frozen shoulder Frequent fecal incontinence Stool incontinence Osteoarthritis Chest pain Calcific tendinitis of left shoulder Weakness of left upper extremity Weakness of both lower extremities Joint pain in fingers of both hands Joint pain in both hands Bilateral knee pain Vitamin B12 deficiency Bilateral ankle pain Rash Right foot pain Medicare annual wellness visit, subsequent Cervical cancer screening Bronchopneumonia Chronic low back pain Bilateral foot pain Bilateral hip pain Annual physical exam Hyperlipidemia LDL goal <70 Bilateral hip pain Fibromyalgia Chronic bronchitis Vitamin D deficiency Post-thoracotomy pain syndrome COPD (chronic obstructive pulmonary disease) Depression Anxiety Type 2 diabetes mellitus with diabetic polyneuropathy Pulmonary nodules Allergic rhinitis GERD (gastroesophageal reflux disease) Morbid obesity with BMI of 40.0-44.9, adult Asthma Obstructive sleep apnea Lumbar degenerative disc disease Carcinoid tumor Coronary artery disease Benign essential hypertension Type 2 diabetes mellitus with hyperglycemia, with long-term current use of insulin Surgical History History of colonoscopy (~12/2013) History of tubal ligation History of lung biopsy (~07/2016) History of esophagogastroduodenoscopy (EGD) (~10/2011) History of lobectomy of lung (~08/2016) History of rectal sphincterotomy (~11/2013) History of cardiac cath (~07/2018) Family History Father Stroke Hypertension Diabetes Mother Diabetes Hypertension Other Arthritis Lupus Social History Household Members: Spouse Housing: Apartment Alcohol intake: never Patient Tobacco Use Status: Former Tobacco user Tobacco use type: Cigarette e-Cigarette/Vaping Use: Never Used Second Hand Smoke Exposure: Yes service: No Current occupational status: disabled Cognitive needs: No Hearing needs: No Vision needs: Yes Physical Exam Vital Signs: Last Vital Signs Pulse 55 09/04/24 11:00 BP 144/64 H 09/04/24 11:00 Pulse Ox 93 09/04/24 11:00 Oxygen Delivery Method Room Air 09/04/24 11:00 BMI result Body Mass Index 40.9 Const Orientation/consciousness: patient oriented x3 HEENT Ears: hearing grossly normal bilaterally Neck Thyroid: Thyroid normal Lymphatic: no lymphadenopathy noted Resp Auscultation: clear to auscultation bilaterally Cardio Rate: regular rate Rhythm: regular rhythm Heart sounds: S1 normal heart sound present and S2 normal heart sound present Skin General skin exam: no rashes or lesions noted Neuro General: patient oriented x3, gait normal and no focal motor deficits Results Reviewed Results Reviewed: Laboratory Tests 04/13/24 06/05/24 09:02 10:14 Sodium 141 Potassium 3.8 Chloride 105 Carbon Dioxide 29 Anion Gap 11 L BUN 11 Creatinine 0.59 Estimated GFR > 60 Glucose (Clinic) 147 H Hemoglobin A1c % 6.9 H Triglycerides 69 Cholesterol 122 LDL Cholesterol, Calc 67 HDL Cholesterol 42 Assessment & Plan Assessment & Plan (1) Type 2 diabetes mellitus with diabetic polyneuropathy: Code(s): E11.42 - Type 2 diabetes mellitus with diabetic polyneuropathy Category: Medical Qualifiers: Diabetes mellitus termite renewal inspector insulin use: with termite renewal inspector use Qualified Code(s): E11.42 - Type 2 diabetes mellitus with diabetic polyneuropathy; Z79.4 - termite control service representative (current) use of insulin Plan: We will start Mounjaro 2.5 mg weekly. She will let me know if she develops any nausea, vomiting or abdominal pain. Discussed risks and benefits and adverse effects of this medication including increased risk of pancreatitis Continue metformin 500 mg daily Discontinue Trulicity Short term follow up to ensure that blood sugars are improving. We did discuss that we may have to adjust the dosage of the Mounjaro. Discussed diet changes. (2) Morbid obesity with BMI of 40.0-44.9, adult: Code(s): E66.01 - Morbid (severe) obesity due to excess calories; Z68.41 - Body mass index [BMI] 40.0-44.9, adult Category: Medical Plan: As above. Encouraged her to reduce her carbohydrate and sugar intake. Switch to Mounjaro (3) Benign essential hypertension: Code(s): I10 - Essential (primary) hypertension Category: Medical Plan: Continue current regimen (4) Pure hypercholesterolemia: Code(s): E78.00 - Pure hypercholesterolemia, unspecified Category: Medical Plan: As above. We will monitor Medications: New tirzepatide (Mounjaro) 2.5 mg (0.5 mL) subcut QWEEK 2 mL 1RF Discontinued Trulicity (dulaglutide) Discontinued Reason: Doctor's Order 3 mg (0.5 mL) subcut QWEEK 2 mL 5RF NS Coding Level of Care Code Est Pt Level 4 (01242) Complex EM visit Add On G2211 Diagnoses Type 2 diabetes mellitus with diabetic polyneuropathy, with long-term current use of insulin E11.42; Z79.4 Diabetes mellitus mcc insulin use: with mcc use Morbid obesity with BMI of 40.0-44.9, adult E66.01; Z68.41 Benign essential hypertension I10 Pure hypercholesterolemia E78.00
[2024-09-04 11:14] LABS: Glucose, Whole Blood 139 mg/dL (60-115)
== END 2024-09-04 11:33 | disposition home or self-care (01) ==
LOC: HO.ENCR 10:53
PROVIDERS: PCP Internal Medicine; Visit Provider Physician Assistant
DX: E11.42 Type 2 diabetes mellitus with diabetic polyneuropathy (principal); Z79.4 Long term (current) use of insulin; E66.01 Morbid (severe) obesity due to excess calories; Z68.41 Body mass index [BMI] 40.0-44.9, adult; I10 Essential (primary) hypertension; E78.00 Pure hypercholesterolemia, unspecified

== ENCOUNTER 2024-09-07 10:49 | Outpatient (AMB) | payer MEDICARE, MEDICAID, SELFPAY ==
[2024-09-07 10:56] VITALS: BP 122/64; PULSE 74; O2SAT 99; BMI 40.4
--- NOTE | 2024-09-07 10:56 | MHC.PC.OV ---
Vital Signs 09/07/24 10:56 Height 5 ft 1 in Weight 214 lb BMI 40.4 BP 122/64 Blood Pressure Location Lt brachial Position Sitting Pulse 74 Pulse Source Pulse Oximeter Pulse Oximetry (%) 99 Oxygen Delivery Method Room Air Intake Visit Reasons: DM, hyperlipidemia Laser Engineer Required: No Accompanied by: PACKAGING SUPERVISOR Allergies penicillin G Allergy (Severe, Verified 09/07/24 11:25) Itching latex Allergy (Intermediate, Verified 09/07/24 11:25) Itching nitrofurantoin Allergy (Intermediate, Verified 09/07/24 11:25) itching and redness (in the legs) Medication List - Last Reconciled 09/07/24 by Leroy Jauregui MD [ADULT BRIEFS (size XL) As directed] [ADULT PULL-UPS (size XL) As directed] albuterol sulfate 2.5 mg continuous nebulization Q4-6H PRN albuterol sulfate 90 mcg/actuation 2 puffs inhalation QID PRN alcohol swabs 1 pad topical TID amitriptyline 25 mg PO BEDTIME aspirin 81 mg PO DAILY 90 days atorvastatin 40 mg PO DAILY azithromycin 250 mg PO 3XW 28 days blood pressure monitor As directed blood sugar diagnostic (OneTouch Verio test strips) Three times a day blood sugar diagnostic (OneTouch Verio test strips) As directed tests 4X/day blood-glucose meter Three times a day blood-glucose meter (OneTouch Verio Flex Meter) As directed trsts 4 X/day cholecalciferol (vitamin D3) 50 mcg PO DAILY 90 days clotrimazole-betamethasone 1-0.05 % 1 appl topical BID PRN 7 days cyanocobalamin (vitamin B-12) 1,000 mcg PO DAILY 90 days dexlansoprazole 60 mg PO DAILY dextromethorphan HBr 30 mg (2 x 15 mg) PO Q8H PRN 30 days diclofenac sodium 1% (Arthritis Pain (diclofenac)) 2 grams topical QID PRN dicyclomine 20 mg PO QID [DISPOSABLE WIPES As directed] [DISPOSABLE WIPES As directed] famotidine 40 mg PO BEDTIME 15 days flash glucose scanning reader ([employer]Style [place] 2 [place]) As directed flash glucose sensor (FreeStyle [place] 2 Sensor kit) As directed change every 14 days fluticasone propionate 220 mcg/actuation (Flovent HFA) 1 puff PO BID fluticasone propionate 50 mcg/actuation 2 sprays intranasal DAILY 30 days [FOUR-PRONGED CANE As directed] furosemide 20 mg PO DAILY glucose 12 grams (3 x 4 gram) PO Q15M hydrochlorothiazide 25 mg PO DAILY 90 days hydrocortisone 2.5% 1 appl topical BID PRN hydrocortisone 2.5% (Proctosol HC) 1 appl [place] BID ibuprofen 800 mg PO TID PRN ipratropium-albuterol 0.5 mg-3 mg(2.5 mg base)/3 mL 3 mL inhalation QID PRN lancets (OneTouch Delica Lancets) Three times a day lancets (FreeStyle Lancets) As directed three time a day lancets (OneTouch Delica Plus Lancet) As directed-tests 4 X/day lancets (FreeStyle Lancets) As directed lidocaine 5% (Lidoderm) 1 patch topical DAILY 30 days [LIGHTWEIGHT WALKER WITH SEAT walker with seat] linaclotide (Linzess) 72 mcg PO QAM Held on 11/16/23. Instructions: Doctor's Order loratadine 10 mg PO DAILY PRN 90 days memantine 10 mg PO BID metformin 500 mg PO DAILY metoclopramide HCl (Reglan) 5 mg PO .tidachs metoprolol succinate ER 50 mg PO DAILY montelukast 10 mg PO BEDTIME nebulizers As directed nystatin 1 appl topical TID pen needle, diabetic (BD Ultra-Fine Cindy Pen Needle) twice daily pen needle, diabetic (Comfort EZ Pen [place]) As directed injects once a day pregabalin 200 mg PO Q8H 30 days psyllium husk (Metamucil) 1 tbsp PO BID roflumilast (Daliresp) 500 mcg PO DAILY 30 days [ROLLATOR with SEAT As directed] sertraline 50 mg PO DAILY Shower Chair As directed tiotropium-olodaterol 2.5-2.5 mcg/actuation (Stiolto Respimat) 2 puffs inhalation DAILY tirzepatide (Mounjaro) 2.5 mg (0.5 mL) subcut QWEEK tizanidine 4 mg PO TID PRN tramadol 50 mg PO TID PRN 30 days umeclidinium-vilanterol 62.5-25 mcg/actuation (Anoro Ellipta) 1 inh inhalation DAILY valacyclovir 500 mg PO BID valsartan 320 mg PO DAILY Tobacco use date assessed: 09/07/24 Fall risk assessment: 1 Fall in past year Last assessed Fall Risk: 09/07/24 Dental Screening Dental Screen Date: 09/07/24 Did you have a dental visit in the last 12 months?: Yes Did you have a dental problem in the last 6 months where you did not have access to dental care?: No Was dental information given to patient?: Patient has dentist HPI DM, hyperlipidemia HPI Details Patient comes in today for her follow up visit States that she feels okay She denies any headaches or dizziness Denies any chest pains, no increased shortness of breath No nausea/vomiting, no abdominal pain No change in bowel habits noted She continues to complain of chronic low back pain - takes Tramadol and uses Lidocaine patches to help control/manage her pain Needs her Lorazepam Rx refilled She had her follow up labs done a few days ago - to discuss her results [facility] Medical History Frozen shoulder Frequent fecal incontinence Stool incontinence Osteoarthritis Chest pain Calcific tendinitis of left shoulder Weakness of left upper extremity Weakness of both lower extremities Joint pain in fingers of both hands Joint pain in both hands Bilateral knee pain Vitamin B12 deficiency Bilateral ankle pain Rash Right foot pain Medicare annual wellness visit, subsequent Cervical cancer screening Bronchopneumonia Chronic low back pain Bilateral foot pain Bilateral hip pain Annual physical exam Hyperlipidemia LDL goal <70 Bilateral hip pain Fibromyalgia Chronic bronchitis Vitamin D deficiency Post-thoracotomy pain syndrome COPD (chronic obstructive pulmonary disease) Depression Anxiety Type 2 diabetes mellitus with diabetic polyneuropathy Pulmonary nodules Allergic rhinitis GERD (gastroesophageal reflux disease) Morbid obesity with BMI of 40.0-44.9, adult Asthma Obstructive sleep apnea Lumbar degenerative disc disease Carcinoid tumor Coronary artery disease Benign essential hypertension Type 2 diabetes mellitus with hyperglycemia, with long-term current use of insulin Surgical History History of colonoscopy (~12/2013) History of tubal ligation History of lung biopsy (~07/2016) History of esophagogastroduodenoscopy (EGD) (~10/2011) History of lobectomy of lung (~08/2016) History of rectal sphincterotomy (~11/2013) History of cardiac cath (~07/2018) Family History Father Stroke Hypertension Diabetes Mother Diabetes Hypertension Other Arthritis Lupus Social History Household Members: Spouse Housing: Apartment Alcohol intake: never Patient Tobacco Use Status: Former Tobacco user Tobacco use type: Cigarette e-Cigarette/Vaping Use: Never Used Second Hand Smoke Exposure: Yes service: No Current occupational status: disabled Cognitive needs: No Hearing needs: No Vision needs: Yes Questionnaire PHQ-9 Over the last 2 weeks, how often have you been bothered by any of the following problems? 1. Little interest or pleasure in doing things: more than half the days 2. Feeling down, depressed, or hopeless: more than half the days 3. Trouble falling or staying asleep, or sleeping too much: more than half the days 4. Feeling tired or having little energy: more than half the days 5. Poor appetite or overeating: nearly every day 6. Feeling bad about yourself - or that you are a failure or have let yourself or your family down: more than half the days 7. Trouble concentrating on things, such as reading the newspaper or watching television: more than half the days 8. Moving or speaking so slowly that other people could have noticed. Or the opposite - being so fidgety or restless that you have been moving around a lot more than usual: more than half the days 9. Thoughts that you would be better off or of hurting yourself in some way: not at all Total score: 17 Depression Screening Interpretation: Positive Depression Screening Follow-up: Existing condition and In treatment Depression Screening Done: Yes 26701 - PHQ-9 Billing: Yes Source: Developed by Drs. Jeffrey Chavez, Marj Villatoro, Vaibhav Pagan and colleagues, with an educational norm from [employer]. Thrive Questionnaire Date Thrive assessed: 09/07/24 I am a: Patient What is your living situation today?: I have a steady place to live Within the past 12 months, did the food you bought not last and you didn't have the money to get more?: Sometimes True Within the past 12 months, did you worry whether your food would run out before you got money to buy more?: Sometimes True Do you have trouble paying for medicines?: Yes Do you have trouble getting transportation to medical appointments?: No Do you have trouble paying your heating and electricity bill?: No Do you have trouble taking care of your child, family member or friend?: No Do you have trouble with day-to-day activities such as bathing, preparing meals, shopping, managing finances, etc.?: No Are you currently unemployed and looking for a job?: No Are you interested in more education?: No Please select the resources that you would like help with: Housing/Correction and Food Currently or been in a relationship where the following occur: I choose not to answer THRIVE Score: 2 AUDIT C Alcohol Use Questionnaire (AUDIT-C) 1. How often do you have a drink containing alcohol?: Never 3. How often do you have six or more drinks on one occasion?: Never Total Score: 0 Score Reviewed/Action Taken: Yes EVELINE-7 AMB Questionnaire EVELINE-7 Date EVELINE - 7 assessed: 09/07/24 Feeling nervous, anxious, or on edge: 1 = Several days Not being able to stop or control worryin = Several days Worrying too much about different things: 1 = Several days Trouble relaxin = Several days Being so restless that it is hard to sit still: 1 = Several days Becoming easily annoyed or irritable: 1 = Several days Feeling afraid as if something awful might happen: 1 = Several days Total EVELINE-7 score (0-4 normal; 5-9 mild; 10-14 moderate; 15-21 severe): 7 Source: Developed by Drs. Jeffrey Chavez, Marj Villatoro, Vaibhav Pagan and colleagues, with an educational norm from [employer]. Review of Systems Const Denies chills, Reports difficulty sleeping, Reports fatigue, Denies fever(s) and Denies headache(s) ENT Denies dysphagia, Denies dizziness, Denies otalgia, Denies headache(s), Reports nasal congestion, Reports neck pain, Denies odynophagia, Denies sinus pain and Denies sore throat Card Denies chest pain, Denies palpitations and Reports dyspnea on exertion (mild) Resp Denies chest congestion, Reports cough (on and off), Reports dyspnea on exertion (mild) and Denies wheezing (improved with Tx) GI Denies abdominal pain, Denies constipation, Denies dysphagia, Denies heartburn, Reports fecal incontinence, Denies diarrhea, Denies nausea, Denies odynophagia and Denies vomiting Denies difficulty voiding, Denies nocturia, Denies dysuria, Reports urinary incontinence (at times) and Denies urinary urgency Musc Reports back pain (especially over the right lower back), Reports arthralgias (involving multiple joints, including L shoulder, L hip and L knee), Reports neck pain and Reports numbness (in both feet, on and off) Skin/Breast Denies rash Neuro Denies dizziness, Denies headache(s), Reports numbness (in both feet, on and off) and Reports paresthesias (in both feet) Endo Reports fatigue and Denies palpitations Aller/Immun Denies wheezing (improved with Tx) Physical exam (Primary Care) Vital Signs: Last Vital Signs Pulse 74 09/07/24 10:56 BP 122/64 09/07/24 10:56 Pulse Ox 99 09/07/24 10:56 Oxygen Delivery Method Room Air 09/07/24 10:56 BMI result Body Mass Index 40.4 Tobacco/Smoking Status: Tobacco use Status Tobacco use date assessed 09/07/24 09/07/24 11:05 Patient Tobacco Use Status Former Tobacco user 09/07/24 11:05 Tobacco use type Cigarette 09/07/24 11:05 e-Cigarette/Vaping Use Never Used 09/07/24 11:05 PHQ-9: PHQ-9 Score PHQ-9: Total score 17 09/07/24 11:24 Depression Screening Interpretation: Positive Depression Screening Follow-up: Existing condition and In treatment Thrive Assessment: Date of Thrive Assessment Date Thrive assessed 09/07/24 09/07/24 11:05 Currently or been in a relationship where the following occur: I choose not to answer Const General: no acute distress and alert HENMT Ears: TM's normal bilaterally and EAC's normal Throat: Yes posterior oropharynx normal and Yes tonsils normal (no TP congestion noted) Neck Neck: Yes supple and No lymphadenopathy Thyroid: Thyroid normal Resp Auscultation: no crackles, no rales, no wheezes and diminished lung sounds (slightly) bilateral Cardio Rate: regular rate Rhythm: regular rhythm Heart sounds: no murmurs GI Palpation (GI): Soft to palpation and nontender Auscultation: normal bowel sounds General: Yes no CVA tenderness Back/Spine/Pelvis Back: no CVA tenderness Cervical Spine: Cervical spine tenderness (mild) Thoracic/Lumbar Spine: paraspinal muscle tenderness on the right in the lower lumbar and lumbar spinal tenderness Skin Rashes: no rashes Extrem General: Yes no clubbing, cyanosis or edema Left upper extremity: shoulder/upper arm Details: tenderness Location: of the A-C joint Left lower extremity: hip/thigh Details: tenderness and knee Details: tenderness (increased); no swelling Results Reviewed Results Reviewed: Laboratory Tests 09/04/24 09/04/24 10:03 10:04 WBC 9.7 Hgb 11.5 L Hct 35.4 L Plt Count 291 Sodium 139 Potassium 4.1 Creatinine 0.67 Estimated GFR > 60 Fasting Glucose 103 H Hemoglobin A1c % 7.2 H Calcium 9.0 AST 35 H ALT 11 Triglycerides 55 Cholesterol 124 LDL Cholesterol, Calc 69 HDL Cholesterol 44 Vitamin B12 1482 H 25-OH Vitamin D Total 35.9 TSH 1.34 Ur Specific [place] 1.015 Urine Protein Negative Urine Glucose (UA) Negative Urine Blood Negative Urine Nitrite Negative Ur Leukocyte Esterase Negative Coding Level of Care Code Est Pt Level 4 (95166) Complex EM visit Add On G2211 Diagnoses Type 2 diabetes mellitus with diabetic polyneuropathy, with long-term current use of insulin E11.42; Z79.4 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 Carcinoid tumor location: lung Carcinoid tumor malignancy status: malignant Moderate persistent asthma with acute exacerbation J45.41 Asthma complication type: with acute exacerbation Asthma persistence: persistent Asthma severity: moderate Obstructive sleep apnea G47.33 Gastroesophageal reflux disease without esophagitis K21.9 Esophagitis presence: without esophagitis Vitamin D deficiency E55.9 Vitamin B12 deficiency E53.8 Degeneration of intervertebral disc of lumbar region with discogenic back pain M51.360 Disc-related pain type: discogenic back pain only Primary osteoarthritis, unspecified site M19.91 Osteoarthritis location: unspecified site Osteoarthritis type: primary Fibromyalgia M79.7 Elevated LFTs R79.89 Anxiety F41.9 Episode of recurrent major depressive disorder, unspecified depression episode severity F33.9 Active/Remission status: currently active Depression Type: major depressive disorder Major depression episode severity: unspecified Major depression recurrence: recurrent Morbid obesity with BMI of 40.0-44.9, adult E66.01; Z68.41 Additional Codes PHQ-9 - 70352 - PHQ-9 Billing: Yes ([id number]) Assessment & Plan Assessment & Plan (1) Type 2 diabetes mellitus with diabetic polyneuropathy: Code(s): E11.42 - Type 2 diabetes mellitus with diabetic polyneuropathy Category: Medical Qualifiers: Diabetes mellitus fpc insulin use: with fpc use Qualified Code(s): E11.42 - Type 2 diabetes mellitus with diabetic polyneuropathy; Z79.4 - [facility] (current) use of insulin Plan: Her HgbA1c was at 7.2% on her labs done a few days ago (was previously at 6.9% a few months ago) - goal is <7.0% Reinforced diabetic diet Continue Metformin 500 mg QD; she was started additionally on Mounjaro by endocrinology a few days ago Follow up with endocrinology as scheduled (2) Coronary artery disease: Code(s): I25.10 - Atherosclerotic heart disease of [place] coronary artery without angina pectoris Category: Medical Qualifiers: Associated angina: without angina Coronary Disease-Associated Artery/Lesion type: [place] artery [place] vs. transplanted heart: [place] heart Qualified Code(s): I25.10 - Atherosclerotic heart disease of [place] coronary artery without angina pectoris Plan: S/P cardiac cath in 07/2018, which revealed (+) very mild coronary disease and recommend continuing medical therapy only Continue aggressive risk factor reduction and low dose Aspirin 81 mg QD Echocardiogram done with cardiology in November 2022 revealed normal LV systolic function with EF between 65 to 70%, normal diastolic function, normal left atrial size, normal RV systolic function, no evidence of aortic stenosis but (+) mild to moderate MR is present Follow up with cardiology as scheduled (3) Pure hypercholesterolemia: Code(s): E78.00 - Pure hypercholesterolemia, unspecified Category: Medical Plan: Results of her labs done a few days ago reviewed and discussed with patient Reinforced low cholesterol diet Continue Atorvastatin 40 mg QD Will recheck her labs and fasting lipids in 4 months for follow up (4) Benign essential hypertension: Code(s): I10 - Essential (primary) hypertension Category: Medical Plan: Reinforced low sodium diet - goal is systolic BP of 120 mm or less Continue Valsartan 320 mg QD, Metoprolol ER 50 mg QD and HCTZ 25 mg QD (5) Carcinoid tumor: Comment: (S/P RUL lobectomy at [facility] - 08/2016) Code(s): D3A.00 - Benign carcinoid tumor of unspecified site Category: Medical Qualifiers: Carcinoid tumor location: lung Carcinoid tumor malignancy status: malignant Qualified Code(s): 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 Waggoner on 09/02/[address] done in September 2020, August 2021 and October 2022 showed stable findings with (+) pulmonary nodules that appear benign Her chest CT done on 10/18/2023 at [facility] showed an apparently growing or new right upper lobe pulmonary nodule measuring 6 mm in size (the largest nodule that she had there a year ago was only about 3 mm in size) She underwent repeat CT in January 2024 for follow up - the pulmonary nodule appears smaller at around 4 mm and stable Follow up with pulmonary and Dr. Waggoner and oncology as scheduled for continuing surveillance (6) Asthma: Code(s): J45.909 - Unspecified asthma, uncomplicated Category: Medical Qualifiers: Asthma complication type: with acute exacerbation Asthma persistence: persistent Asthma severity: moderate Qualified Code(s): J45.41 - Moderate persistent asthma with (acute) exacerbation Plan: Controlled lately - continue Flovent HFA 220 mcg 1 inhalation BID, Stiolto Respimat 2.5-2.5 mcg 2 inhalations QD, Albuterol HFA 2 inhalations Q 6 hours PRN and updraft treatments with Ipratropium-Albuterol 0.5-3 mg/3 ml QID PRN Continue Montelukast 10 mg QD and Loratadine 10 mg QD PRN Continue Azithromycin MWF for prophylactic Tx - started by pulmonary Follow up with pulmonary as scheduled (7) Obstructive sleep apnea: Code(s): G47.33 - Obstructive sleep apnea (adult) (pediatric) Category: Medical Plan: In-lab sleep study done at [facility] revealed (+) moderate degree of sleep apnea She reportedly had an elevated [place] score of 11/24 She also has significant trigeminy and PVCs on cardiac tracing, likely from her untreated sleep apnea She was started on APAP by pulmonary a couple of months ago Follow up with pulmonary and Sleep Medicine as scheduled (8) GERD (gastroesophageal reflux disease): Code(s): K21.9 - Gastro-esophageal reflux disease without esophagitis Category: Medical Qualifiers: Esophagitis presence: without esophagitis Qualified Code(s): K21.9 - Gastro-esophageal reflux disease without esophagitis Plan: Dietary restrictions reinforced Continue Dexlansoprazole 60 mg QD Follow up with GI as scheduled (9) Vitamin D deficiency: Code(s): E55.9 - Vitamin D deficiency, unspecified Category: Medical Plan: Continue Vitamin D3 2000 units QD (10) Vitamin B12 deficiency: Code(s): E53.8 - Deficiency of other specified B group vitamins Category: Medical Plan: Her B12 level has decreased slightly from previous but is still overcorrected (>1100) Continue Vitamin B12 tablets 1000 mcg BIW Will recheck her B12 level in 4 months for follow up (11) Lumbar degenerative disc disease: Code(s): M51.36 - Other intervertebral disc degeneration, lumbar region Category: Medical Qualifiers: Disc-related pain type: discogenic back pain only Qualified Code(s): M51.360 - Other intervertebral disc degeneration, lumbar region with discogenic back pain only Plan: Reinforced activity and weight-lifting restrictions Continue Tizanidine 4 mg TID PRN and Tramadol 50 mg TID PRN for pain Continue Lidocaine 5% patches QD PRN - Rx refilled (12) Osteoarthritis: Code(s): M19.90 - Unspecified osteoarthritis, unspecified site Category: Medical Qualifiers: Osteoarthritis location: unspecified site Osteoarthritis type: primary Qualified Code(s): M19.91 - Primary osteoarthritis, unspecified site Plan: Continue Tramadol 50 mg TID PRN for pain Follow up with rheumatology and pain management as scheduled (13) Fibromyalgia: Code(s): M79.7 - Fibromyalgia Category: Medical Plan: Continue Pregabalin 200 mg Q 8 hours and Tizanidine 4 mg TID PRN (14) Elevated LFTs: Code(s): R79.89 - Other specified abnormal findings of blood chemistry Category: Medical Plan: Her serum AST remains slightly elevated on her recent labs - is likely due to hepatosteatosis and patient is advised that losing weight should rectify this Will continue to monitor her LFTs regularly (15) Anxiety: Code(s): F41.9 - Anxiety disorder, unspecified Category: Medical Plan: Continue Lorazepam 1 mg BID-TID PRN (16) Depression: Code(s): F32.9 - Major depressive disorder, single episode, unspecified Category: Medical Qualifiers: Active/Remission status: currently active Depression Type: major depressive disorder Major depression episode severity: unspecified Major depression recurrence: recurrent Qualified Code(s): F33.9 - Major depressive disorder, recurrent, unspecified Plan: Continue Sertraline 50 mg QD (17) Morbid obesity with BMI of 40.0-44.9, adult: Code(s): E66.01 - Morbid (severe) obesity due to excess calories; Z68.41 - Body mass index [BMI] 40.0-44.9, adult Category: Medical Plan: Reinforced diet; exercise and weight loss are unrealistic given patient's multiple comorbidities and physical issues Plan To return as scheduled in November 2024 for her annual Medicare Wellness Exam Orders: Orders Comprehensive [place]. Panel Fast 11/13/24 E78.00 - Pure hypercholesterolemia, unspecified Lipid Panel 11/13/24 E78.00 - Pure hypercholesterolemia, unspecified Hemoglobin A1c 11/13/24 E11.9 - Type 2 diabetes mellitus without complications UA CC w/rflx Micro + Cult 11/13/24 R30.0 - Dysuria Complete Blood Count Auto Diff 11/13/24 D64.9 - Anemia, unspecified Microalbumin, Random (w Creat) 11/13/24 E11.9 - Type 2 diabetes mellitus without complications TSH reflex Free T4 11/13/24 E78.00 - Pure hypercholesterolemia, unspecified Vitamin D 25-OH Total 11/13/24 E55.9 - Vitamin D deficiency, unspecified Medications: Changed From lorazepam Lorazepam is being prescribed and managed by psychiatry, NOT BY PCP 1 mg PO BID-TID 30 days PRN 45 tabs 0RF anxiety To lorazepam Lorazepam is being prescribed and managed by psychiatry, NOT BY PCP. PCP will refill Rx this ONE TIME as patient is not able to reach her psychiatrist recently 1 mg PO BID-TID PRN 45 tabs 0RF anxiety 30 days
--- OUTSIDE RECORDS SUMMARY | 2024-09-07 12:44 | XMS_ITS | Clinical Summary ---
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 Plan from our standpoint will be for a 1 year follow-up CT scan of the chest and a visit in this office after that. All questions were answered. This visit was done through the video combination welder apprentice services. Chronic obstructive pulmonar y disease ([facility] V24, [facility] V28) 09/29/2016 Obstructive sleep apnea syndrome 09/29/2016 Overview (12/23/2023): [facility] Home Polysomnogram: Date 05/17/2017; AHI 6, Unclassified apneas 0; Obstructive apneas 0; Central apneas 0; Mixed apneas 0; hypopneas 37; average oxygen saturation 94% (lowest 82% without saturations <88% for 5% or more of study) - Obstructive Sleep Apnea - mild; all hypopneas; no sleep related hypoventilation by 2018 home polysomnogram. Depression 04/04/2012 DM2 (diabetes mellitus, type 2) ([facility] V24, [facility] V28) 04/04/2012 Hyperlipidemia with target LDL less [...] < 70 DM2 (diabetes mellitus, type 2) ([facility] V24, [facility] V28) 04/04/2012 DX:DM2 (diabetes mellitus, t ype 2) ([facility]) Lumbar disc disease 04/04/2012 DX:Lumbar di sc disease Depression 04/04/2012 DX:Depression Anxiety 04/04/2012 DX:Anxiety Obesity 04/04/2012 DX:Obesity LBBB (left bundle branch block) 04/04/2012 DX:LBBB (left bundle branch block) Emphysema lung ([facility] [place], [facility]28) DX:Emphysema lung (HCC) Fibromyalgia DX:Fibromyalgia Arthritis [...] Procedure Name Priority Date/Time Associated Diagnosis Comments [facility] SCREENING DIGITAL Routine 06/16/2023 11:59 AM EDT Encounter for screening mammogram for malignant neoplasm of breast from Last 3 Months or Most Recently Relevant to Health Maintenance Results * [facility] SCREENING DIGITAL (06/16/2023 11:59 AM EDT) Anatomical Region Laterality Modality Mammography 06/16/2023 10:3 6 AM EDT Narrative 06/16/2023 11:59 AM EDT [facility] Diagnostic Imaging Department [address] [place] [address] Patient: PATO SAHU I /Age/Sex: 1955 - 67 - F Unit#: [id number] Location/Status: SPDIMAM/REG CLI Mnemonic/Ordering Site: [facility] Ordering Physician: LEROY SANCHEZ MD [facility] Screening Digital - 06/16/23 - 1106 Report Status:Signed EXAM: [facility] Screening Digital EXAM DATE AND TIME: 06/16/2023 11:07 AM HISTORY: Annual screening COMPARISON: Multiple exams dating back to 2016 TECHNIQUE: Bilateral digital breast tomosynthesis was performed in the CC and MLO projections. Computer aided detection with [place] 3D 3.1 was employed. TISSUE DENSITY: b. [...] Procedure Note Wally Moeller MD - 11/01/2023 [facility] Diagnostic Imaging Department [address] [place] [id number] Patient: PATO SAHU Nikki /Age/Sex: 1955 - 67 - F Unit#: [id number] Location/Status: SPDIMAM/REG CLI Mnemonic/Ordering Site: [facility] Ordering Physician: LEROY SANCHEZ MD [facility] Screening Digital - 06/16/23 - 1106 Report Status:Signed EXAM: [facility] Screening Digital EXAM DATE AND TIME: 06/16/2023 11:07 AM HISTORY: Annual screening COMPARISON: Multiple exams dating back to 2016 TECHNIQUE: Bilateral digital breast tomosynthesis was performed in the CCand MLO projections. Computer aided detection with [place] 3D 3.1was employed. TISSUE DENSITY: b. There [...] MEDICARE ADVANTAGE [place]ICAID - [place] Care Teams Cigarette Making Machine Hopper Feeder Relationship Specialty Start Date End Date Leroy Sanchez MD [address] [place] [address] [address] RAN Suarez PCP - General Internal Medicine 11/27/11
== END 2024-09-07 11:46 | disposition home or self-care (01) ==
LOC: HO.HMCH 10:50
PROVIDERS: PCP Internal Medicine; Visit Provider Internal Medicine
DX: E11.42 Type 2 diabetes mellitus with diabetic polyneuropathy (principal); Z79.4 Long term (current) use of insulin; E66.01 Morbid (severe) obesity due to excess calories; Z68.41 Body mass index [BMI] 40.0-44.9, adult; C7A.090 Malignant carcinoid tumor of the bronchus and lung; I25.10 Atherosclerotic heart disease of native coronary artery without angina pectoris; E78.00 Pure hypercholesterolemia, unspecified; I10 Essential (primary) hypertension; J45.41 Moderate persistent asthma with (acute) exacerbation; G47.33 Obstructive sleep apnea (adult) (pediatric); K21.9 Gastro-esophageal reflux disease without esophagitis; E55.9 Vitamin D deficiency, unspecified

== ENCOUNTER → 2024-09-07 10:49 | Outpatient (BNVA) | payer MEDICARE, MEDICAID, SELFPAY | PROVIDERS: PCP Internal Medicine; Visit Provider Internal Medicine | DX: E11.42 Type 2 diabetes mellitus with diabetic polyneuropathy (principal); E78.5 Hyperlipidemia, unspecified; I25.10 Atherosclerotic heart disease of native coronary artery without angina pectoris; E78.00 Pure hypercholesterolemia, unspecified; I10 Essential (primary) hypertension; C7A.090 Malignant carcinoid tumor of the bronchus and lung; J45.41 Moderate persistent asthma with (acute) exacerbation; G47.33 Obstructive sleep apnea (adult) (pediatric); K21.9 Gastro-esophageal reflux disease without esophagitis; E55.9 Vitamin D deficiency, unspecified; E53.8 Deficiency of other specified B group vitamins; M51.360 Other intervertebral disc degeneration, lumbar region with discogenic back pain only; M19.91 Primary osteoarthritis, unspecified site; M79.7 Fibromyalgia; R79.89 Other specified abnormal findings of blood chemistry; F41.9 Anxiety disorder, unspecified; F33.9 Major depressive disorder, recurrent, unspecified; E66.01 Morbid (severe) obesity due to excess calories; Z68.41 Body mass index [BMI] 40.0-44.9, adult | CPT/HCPCS: 96127; 99212 ==

== ENCOUNTER 2024-09-13 12:44 | Outpatient (AMB) | payer MEDICARE, MEDICAID, SELFPAY ==
--- NOTE | 2024-09-13 12:47 | A.OFFVIS_ITS ---
Vital Signs 09/13/24 12:49 Height 5 ft 1 in Weight 214 lb BMI 40.4 BP 126/60 Blood Pressure Location Rt brachial Position Sitting Pulse 72 Pulse Source Pulse Oximeter Pulse Oximetry (%) 98 Oxygen Delivery Method Room Air Intake Visit Reasons: f/u r/s 08/03 Intake Note: Est pt for mgmt of CIC. CC; C.O. concerns pertaining to chronic constipation. Pt is unsure as to which m edications she can take for GI Rx; she was not sure if she could take all of them at the same time without any interactions. Structures Engineer Required: Yes Structures Engineer Services: Structures Engineer Offered & Declined Accompanied by: Daughter Allergies penicillin G Allergy (Severe, Verified 09/13/24 12:49) Itching latex Allergy (Intermediate, Verified 09/13/24 12:49) Itching nitrofurantoin Allergy (Intermediate, Verified 09/13/24 12:49) itching and redness (in the legs) HPI HPI f/u r/s 08/03: Details: Assessment & Plan (1) GERD (gastroesophageal reflux disease): Code(s): K21.9 - Gastro-esophageal reflux disease without esophagitis Category: Medical Qualifiers: Esophagitis presence: without esophagitis Qualified Code(s): K21.9 - Gastro-esophageal reflux disease without esophagitis (2) Chronic idiopathic constipation: Code(s): K59.04 - Chronic idiopathic constipation Category: Medical Plan ENGLISH #Jorge Live She is accompanied by a female family member who is supportive She says she has been having 2 problems: 1. loose stools with fecal incontinence about 2 x a week, and 2. a cough worse at night with am hoarseness. She has not been taking the LInzess which is appropriate. She feels that the reglan is helping her, but I wonder if this is overdriving the bowels. I suggest that we decrease to tid from qid. I am fearful to eliminate the qhs dose r/t possible GERD cough, so we will eliminate the am dose. She also just stared Ozempic 2 mos ago, and this can worsen GERD and gastric emptying and/or cause diarrhea. HOwever, she feels the loose stools predate the Ozempic. She wonders why no one ever told her she had hiatal hernia. I explained that this was not seen on prior EGDs but this is not usually seen well on that particular study. It is likely we never knew, however surgery is not typically performed to fix this unless it is a severe situation since a Shar fundoplication is a very large surgery is only about 50% effective. I did dianetic counselor her to raise the head of her bed she says she has an electric bed at home. We discussed how aspiration could be causing her symptoms. Apparently, she also wonders whether there is mold in the [place] and whether this is something that is triggering her asthma. Obviously there can be many factors contributing to a cough and it is sometimes difficult to tease out the contribut ing factors. 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 This was never noted on prior endoscopy so I am uncertain of the clinical significance of this. She also has mild impingement of cervical osteophytes on the esophagus that likely is not a clinical contribution. She says she was having dysphagia at the time but this was accompanied by a sore throat that has since resolved and her swallowing has improved. She also takes dicyclomine 1 tab 3 times a day. I think we should do 1 tab 3 times a day and 2 at bedtime because this may also help with the diarrhea. I am also sending Proctosol cream for her solitary hemorrhoid that is bothersome to her. Return office visit in 6 weeks Medications: New hydrocortisone 2.5% (Proctosol HC) BE SURE TO INCLUDE RECTAL APPICATOR!! 1 appl OH BID 30 grams 6RF hemorrhoids K64.9 - Unspecified hemorrhoids metoclopramide HCl (Reglan) 5 mg PO .tidachs 90 tabs 6RF K21.9 - Gastro- esophageal reflux disease without esophagitis dicyclomine 1 tab tid and 2 qhs orally; 150 tabs 6RF Refilled dexlansoprazole 60 mg PO DAILY 90 caps 1RF K59.04 - Chronic idiopathic constipation On Hold linaclotide (Linzess) Hold Comment: Doctor's Order 72 mcg PO QAM 30 caps 6RF K52.1 - Toxic gastroenteritis and colitis, K59.04 - Chronic idiopathic constipation TODAYS VISIT Malay #Ambreen Domenico She is now having CIC. With this, i suggest we restart the Linzess but qod. Her current GI regimen is: She advises me that she was changed from Trulicity to Mounjaro, this may necessitate an increase in the reglan or LInzess as they titrate her dose. She tells me that her PCP told her she had discomfort because of my hernia, I think they are referring to a HH which is minimal for her. Then she says there is something wrong with my liver, I review the labs and US with elastography and this is most likely fatty liver given her NIDDM as well. She was educated about this and sx of gallstones and to avoid high fat foods as this could precipitate an attack. She is due for repeat colonoscopy due to insufficient prep at her last. He has a history of coronary artery disease is stable she also has sleep apnea and asthma as well as a history of a lung lobectomy. There are no prior problems with anesthesia or sedation. There are no infectious disease problems. ROV 8 weeks. [facility] Medical History (Updated 09/13/24 @ 17:09 by VINAY Phillips) Medicare annual wellness visit, subsequent Otitis media of right ear Sore throat Upper respiratory tract infection URI, acute Frequent fecal incontinence Stool incontinence Right sided abdominal pain Frozen shoulder Osteoarthritis Chest pain Calcific tendinitis of left shoulder Weakness of left upper extremity Weakness of both lower extremities Joint pain in fingers of both hands Joint pain in both hands Bilateral knee pain Vitamin B12 deficiency Bilateral ankle pain Rash Right foot pain Medicare annual wellness visit, subsequent Cervical cancer screening Bronchopneumonia Chronic low back pain Bilateral foot pain Bilateral hip pain Annual physical exam Hyperlipidemia LDL goal <70 Bilateral hip pain Fibromyalgia Chronic bronchitis Vitamin D deficiency Post-thoracotomy pain syndrome COPD (chronic obstructive pulmonary disease) Depression Anxiety Type 2 diabetes mellitus with diabetic polyneuropathy Pulmonary nodules Allergic rhinitis GERD (gastroesophageal reflux disease) Morbid obesity with BMI of 40.0-44.9, adult Asthma Obstructive sleep apnea Lumbar degenerative disc disease Carcinoid tumor Coronary artery disease Benign essential hypertension Type 2 diabetes mellitus with hyperglycemia, with long-term current use of insulin Surgical History (Updated 09/13/24 @ 17:05 by VINAY Phillips) History of rectal sphincterotomy (~11/2013) History of colonoscopy (~12/2013) History of tubal ligation History of lung biopsy (~07/2016) History of esophagogastroduodenoscopy (EGD) (~10/2011) History of lobectomy of lung (~08/2016) History of cardiac cath (~07/2018) Family History Father Stroke Hypertension Diabetes Mother Diabetes Hypertension Other Arthritis Lupus Social History Household Members: Spouse Housing: Apartment Alcohol intake: never Patient Tobacco Use Status: Former Tobacco user Tobacco use type: Cigarette e-Cigarette/Vaping Use: Never Used Second Hand Smoke Exposure: Yes service: No Current occupational status: disabled Cognitive needs: No Hearing needs: No Vision needs: Yes Review of Systems Const Denies fatigue, Denies fever(s), Denies night sweats, Denies poor appetite and Denies weight loss Eyes Details: glasses Reports requires corrective lenses ENT Reports Normal hearing present, Denies dental pain, Denies dysphagia, Denies hearing loss, Denies mouth pain, Denies odynophagia, Denies throat swelling, Denies tongue swelling and Reports other (Dentition adequate) Card Reports no additional complaints Resp Reports no additional complaints GI Details: Denies abdominal pain, Denies melena, Denies bloating, Denies hematochezia, Reports constipation, Denies GI cramping, Denies dysphagia, Denies excessive flatus, Denies early satiety, Reports heartburn, Denies diarrhea, Denies nausea, Denies odynophagia, Denies vomiting and Denies hematemesis Skin/Breast Denies pruritus, Denies lesions, Denies rash and Denies jaundice Neuro Reports Normal hearing present and Denies Abnormal speech present Endo Denies fatigue Aller/Immun Denies throat swelling and Denies tongue swelling Physical Exam Vital Signs: Last Vital Signs Pulse 72 09/13/24 12:49 BP 126/60 09/13/24 12:49 Pulse Ox 98 09/13/24 12:49 Oxygen Delivery Method Room Air 09/13/24 12:49 BMI result Body Mass Index 40.4 Const General: cooperative, no acute distress, well developed and well groomed Nutritional Appearance: well nourished and obese Orientation/consciousness: oriented to person, oriented to place and oriented to time Limitations: language barrier and ambulation with cane HEENT Head: Yes normocephalic and Yes atraumatic Eyes General: appearance normal, both eyes and all related structures Pupils: Equal, round and reactive pupils present Neck Neck: Yes normal visual inspection and Yes no lymphadenopathy Thyroid: Thyroid normal Resp Effort & Inspection: normal respiratory effort and able to speak in complete sentences Auscultation: clear to auscultation bilaterally Cardio Rate: regular rate Rhythm: regular rhythm Heart sounds: Normal, physiologic split S2 sound present Peripheral pulses: radial pulses present and posterior tibial pulses present GI Inspection: No distended, Yes Abdominal panniculus present and Yes obesity Palpation (GI): Soft to palpation, nontender, no guarding, not rigid and No hepatosplenomegaly present Percussion: Yes normal to percussion Auscultation: normal bowel sounds Rectal Exam - Female: deferred Skin General skin exam: no rashes or lesions noted, turgor normal, skin not dry, no jaundice, No spider nevi and no striae Rashes: no rashes Nails: normal Neuro General: oriented to person, oriented to place and oriented to time Cranial nerves: Yes Equal, round and reactive pupils present and Yes Normal hearing present Speech: No Abnormal speech present Extrem General: Yes normal to inspection, No clubbing, No cyanosis and No edema Psych Appearance: grossly normal and well kempt Mental Status: mental status grossly normal Speech and movement: Normal speech and movement present Affect: normal affect Attitude: cooperative Thought process: Normal thought process present and not confabulating Thought content: Normal thought content present Insight: Limited insight present (Psych) Judgement: Limited judgement present (Psych) Results Reviewed Results Reviewed: Laboratory Tests 09/04/24 10:04 WBC 9.7 Hgb 11.5 L Hct 35.4 L MCV 83.5 MCH 27.1 Plt Count 291 Estimated GFR > 60 Hemoglobin A1c % 7.2 H Total Bilirubin 0.4 AST 35 H ALT 11 Alkaline Phosphatase 170 H TSH 1.34 Assessment & Plan Assessment & Plan (1) Chronic idiopathic constipation: Code(s): K59.04 - Chronic idiopathic constipation Category: Medical (2) GERD (gastroesophageal reflux disease): Code(s): K21.9 - Gastro-esophageal reflux disease without esophagitis Category: Medical Qualifiers: Esophagitis presence: without esophagitis Qualified Code(s): K21.9 - Gastro-esophageal reflux disease without esophagitis (3) Pre-op examination: Code(s): Z01.818 - Encounter for other preprocedural examination Category: Medical (4) Tubular adenoma of colon: Comment: 2022 scope 3 repeat 1 y ears Code(s): D12.6 - Benign neoplasm of colon, unspecified Category: Medical (5) Gallstones: Code(s): K80.20 - Calculus of gallbladder without cholecystitis without obstruction Category: Medical (6) Obstructive sleep apnea: Code(s): G47.33 - Obstructive sleep apnea (adult) (pediatric) Category: Medical (7) Chronic bronchitis: Code(s): J42 - Unspecified chronic bronchitis Category: Medical Qualifiers: Chronic bronchitis type: mucopurulent Qualified Code(s): J41.1 - Mucopurulent chronic bronchitis Plan Malay #Ambreen Acuña She is now having CIC. With this, i suggest we restart the Linzess but qod. Her current GI regimen is: She advises me that she was changed from Trulicity to Mounjaro, this may necessitate an increase in the reglan or LInzess as they titrate her dose. She tells me that her PCP told her she had discomfort because of my hernia, I think they are referring to a HH which is minimal for her. Then she says there is something wrong with my liver, I review the labs and US with elastography and this is most likely fatty liver given her NIDDM as well. She was educated about this and sx of gallstones and to avoid high fat foods as this could precipitate an attack. She is due for repeat colonoscopy due to insufficient prep at her last. He has a history of coronary artery disease is stable she also has sleep apnea and asthma as well as a history of a lung lobectomy. There are no prior problems with anesthesia or sedation. There are no infectious disease problems. ROV 8 weeks. Orders: Orders Colonoscopy - GI Use Only Today D12.6 - Benign neoplasm of colon, unspecified Medications: New bisacodyl (Dulcolax (bisacodyl)) 10 mg (2 x 5 mg) PO BEDTIME 4 tabs 0RF 2 days sodium,potassium,mag sulfates 17.5-3.13-1.6 gram (Suprep Bowel Prep Kit) 480 mL orally; FOR COLONOSCOPY PREP 354 mL 0RF Coding Level of Care Code Est Pt Level 4 (49876) Diagnoses Chronic idiopathic constipation K59.04 Gastroesophageal reflux disease without esophagitis K21.9 Esophagitis presence: without esophagitis Pre-op examination Z01.818 Tubular adenoma of colon D12.6 Gallstones K80.20 Obstructive sleep apnea G47.33 Mucopurulent chronic bronchitis J41.1 Chronic bronchitis type: mucopurulent Time Spent (min) 36
[2024-09-13 12:49] VITALS: BP 126/60; PULSE 72; O2SAT 98; BMI 40.4
--- OUTSIDE RECORDS SUMMARY | 2024-09-13 13:14 | XMS_ITS | Patient Health Record ---
Author Organization [facility] Address [address] [place] [address] Care Team Providers Care Piercing Machine Operator Name Role Phone Juventino CHOPRA Ellis Primary Care Provider Jeffrey Gerard [phone] Reason For Referral No Information Medications Medication SIG (Take, Route, Frequency, Duration) Notes Start Date End Date Status Lisinopril 40 MG 1 tablet Orally Once a day Active Metoprolol Tartrate 25 MG 1 tablet Orall y Twice a day Active Colyte w Flavor Packs 240 GM as directed Orally as directed for 1 day(s) 11/14/2013 Active ProAir HFA 108 (90 Base) MCG/ACT 2 puffs as needed Inhalation every 4 hrs Active Advair HFA 115-21 MCG/ACT 2 puffs Inhala tion Twice a day Active Sertraline HCl 25 MG 1 tablet Orally Onc e a day Active metFORMIN HCl 500 MG 1 tablet with meals Orally Twice a day Active hydroCHLOROthiazide 25 MG 1 tablet Orall y Once a day Active Aspir-81 81 MG 1 tablet Orally Once a day Active Omeprazole 20 MG 1 capsule Orally Onc e a day Active Simvastatin 40 MG 1 tablet in the evening Orally Once a day Active Problems Problem Type SNOMED Code ICD Code Onset Dates Problem Status W/U Status Risk Notes Problem Blood in stool (916110220) Blood in stool (578.1) Active confirmed Problem Constipation (46648781) Constipation (564.00) Active confirmed Problem GERD (gastroesophagea l reflux disease) (530.81) Active confirmed Plan Of Treatment Future Test Test Name Order Date COLONOSCOPY 11/14/2013 Insurance Providers Payer Name Payer Address Payer Phone Subscriber Number Group Number Insured Name Patient Relationship to Insured Coverage Start Date Coverage End Date MEDICAID OF [facility] [address] [place] [phone] [id number] PATO HAYNES Self - patient is the insured Medical (General) History Medical History History ICD Code NIDDM Asthma Denies [place],CVA,renal disease EGD in 10/[address] RobledoLwpyei-btj-hbneoy gastric bx-neg H.pylori HTN Had a sleep study in 10/2013-awaiting res ults Neg GB U/S in 09/2013 Depression Hyperlipidemia Surgical History Surgery Date(Month/Year) tubal ligation ear surgery
--- OUTSIDE RECORDS SUMMARY | 2024-09-13 13:14 | XMS_ITS | Clinical Summary ---
Author Organization [facility] Address [address] [place] [phone] Phone Care Team Providers Care Paper Products Supervisor Name Role Phone Leroy Sanchez MD Primary [...] lower extremities 021 Carcinoid tumor of lung ([facility]/HCC V28) 10/06/2016 Assessment & Plan (02/21/2024 10:55 [...] being seen in a pain clinic at [place]. Plan from our standpoint will be for a 1 year follow-up CT scan of the chest and a visit in this office after that. All questions were answered. This visit was done through the video law librarian services. Chronic obstructive pulmonar y disease ([facility] V24, [facility] V28) 09/29/2016 Obstructive sleep apnea syndrome 09/29/2016 Overview (12/23/2023): [facility] Home Polysomnogram: Date 05/17/2017; AHI 6, Unclassified apneas 0; Obstructive apneas 0; Central apneas 0; Mixed apneas 0; hypopneas 37; average oxygen saturation 94% (lowest 82% without saturations <88% for 5% or more of study) - Obstructive Sleep Apnea - mild; all hypopneas; no sleep related hypoventilation by 2018 home polysomnogram. Depression 04/04/2012 DM2 (diabetes mellitus, type 2) ([facility] V24, [facility] V28) 04/04/2012 Hyperlipidemia with target LDL [...] < 70 DM2 (diabetes mellitus, type 2) ([facility] V24, [facility] V28) 04/04/2012 DX:DM2 (diabetes mellitus, t ype 2) ([facility]) Lumbar disc disease 04/04/2012 DX:Lumbar di sc disease Depression 04/04/2012 DX:Depression Anxiety 04/04/2012 DX:Anxiety Obesity 04/04/2012 DX:Obesity LBBB (left bundle branch block) 04/04/2012 DX:LBBB (left bundle branch block) Emphysema lung ([facility], [facility] V28) DX:Emphysema lung (HCC) Fibromyalgia DX:Fibromyalgia Arthritis [...] Procedure Name Priority Date/Time Associated Diagnosis Comments [facility] SCREEN[facility] Routine 06/16/2023 11:59 AM EDT Encounter for screening mammogram for malignant neoplasm of breast from Last 3 Months or Most Recently Relevant to Health Maintenance Results * [facility] SCREEN[facility] (06/16/2023 11:59 AM EDT) Anatomical Region Laterality Modality Mammography 06/16/2023 10:3 6 AM EDT Narrative 06/16/2023 11:59 AM EDT [facility] Diagnostic Imaging Department [address] [place] [address] Patient: PATO SAHU I /Age/Sex: 1955 - 67 - F Unit#: [id number] Location/Status: SPDIMAM/REG CLI Mnemonic/Ordering Site: [facility] Ordering Physician: LEROY SANCHEZ MD [facility] Screening Digital - 06/16/23 - 1106 Report Status:Signed EXAM: [facility] Screening Digital EXAM DATE AND TIME: 06/16/2023 11:07 AM HISTORY: Annual screening COMPARISON: Multiple exams dating back to 2016 TECHNIQUE: Bilateral digital breast tomosynthesis was performed in the CC and MLO projections. Computer aided detection with [employer] 3D 3.1 was employed. TISSUE DENSITY: b. [...] Procedure Note Wally Moeller MD - 11/01/2023 [facility] Diagnostic Imaging Department [address] [place] [id number] Patient: PATO SAHU Nikki /Age/Sex: 1955 - 67 - F Unit#: [id number] Location/Status: SPDIMAM/REG CLI Mnemonic/Ordering Site: [facility] Ordering Physician: LEROY SANCHEZ MD [facility] Screening Digital - 06/16/23 - 1106 Report Status:Signed EXAM: [facility] Screening Digital EXAM DATE AND TIME: 06/16/2023 11:07 AM HISTORY: Annual screening COMPARISON: Multiple exams dating back to 2016 TECHNIQUE: Bilateral digital breast tomosynthesis was performed in the CCand MLO projections. Computer aided detection with [employer] 3D 3.1was employed. TISSUE DENSITY: b. There [...] MEDICARE ADVANTAGE MEDICAID - [place] Care Teams Paper Products Supervisor Relationship Specialty Start Date End Date Leroy Sanchez MD [address] [place] [address] [address] RAN Suarez PCP - General Internal Medicine 11/27/11
--- OUTSIDE RECORDS SUMMARY | 2024-09-13 13:14 | XMS_ITS | Data Portability ---
Author Organization [place] [facility] Address [address] [place] [address] Care Team Providers Care Supervisor Shop Name Role Phone SOFIA SANCHEZ Primary Care Provider [phone] Assessment Encounter Date Assessment Date Assessment LastModified [...] after care of this patient according to [facility]'s infection prevention protocols. Time On Scene with Patient: 00:28:11 [email or web address] Not available 01/31/2020 17:03:32 03/25/2020 03/25/2020 History [...] for the patient DHMT and I wore [id number], gowns, gloves and eye protection throughout entire visit Time On Scene with Patient: 01:00:23 Not available 03/25/2020 17:24:30 03/11/2021 03/11/2021 Overview/History [...] after care of this patient according to [facility]'s infection prevention protocols. [email or web address] Not available 03/11/2021 13:19:16 04/17/2021 04/17/2021 Overview/History [...] after care of this [facility]. Time On Scene with Patient: 00:23:01 [email or web address] Not available 04/20/2021 16:17:01 Plan of Treatment Reminders Order Date Submit Date Provider Last Modified By Organization Details Last Modified Time Details Appointments None recorded. 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 Procedures None recorded. Surgeries None recorded. Imaging None recorded. Medication Orders fluticasone propionate 50 mcg/actuati on nasal spray,suspe nsion 2021 022 [facility][id number], [address] [facility], [place], [address], 20:27:06 Patient TargetsNo targets recorded. Patient Instructions Encounter Date Encounter Id Patient Instructions Last Modified By Organization Details Last Modified Time 01/31/2020 [id number] YOU WERE BOTH TESTED TODAY FOR COVID [...] MEDICATIONS Thank you for your visit with [facility] today. We cannot always find the exact cause of your symptoms during your initial visit. Please follow up with your primary care provider or specialist 1 WEEK to be rechecked or seek medical attention if your symptoms do not go away or get worse. If you develop any new or worsening symptoms and need after hours care, please go to nearest ER and/or call 911. If you have additional concerns or develop a change in your condition between 8am-10pm, [facility] at [phone] to help navigate your care. I Not available 01/31/2020 13:52:04 03/11/2021 [id number] Viral Illness Discharge Instructions BASIC INFORMATION A [...] in your condition between 8am-10pm, please call [facility] at [phone] to help navigate your care. [email or web address] Not available 03/11/2021 13:19:32 04/17/2021 [id number] Viral Illness Discharge Instructions BASIC INFORMATION A [...] condition between 8am-10pm, please call [facility] at [phone] to help navigate your care. [email or web address] Not available 04/17/2021 20:29:08 Reason for Referral None Reported. Results Created Date Observation Date Name Description Value Unit Range Abnormal Flag Note LastModifiedBy Organization Detail LastModifiedTime 01/31/20 20 02/03/2020 SARS CoV 2 RNA (COVI D-19) , QL, executive wellness programs director-P CR, respi rator y speci men covid-19, ANA Not Detec betsey Refer ence range : Not Detec betsey (NOTE ) This nucle ic acid ampli ficat ion test was devel oped and its perfo rmanc e carl cteri stics deter mined by [facility] atori es. Nucle ic acid [...] . TEST PERFO RMED BY [facility], JOAQUINA COPPOLA, ROBBIN HOLCOMB Y Not Available [facility] (Centralized Electronic Ordering - All Locations) Patient Can Go To The Location Of Their Choice, [id number] 02/03/2020 10:14:50 03/25/19 21 03/27/2020 SARS CoV 2 RNA (COVI D-19) , QL, executive wellness programs director-P CR, respi rator y speci men covid-19, (RT)-PCR (neg) NEGAT FUNMILAYO 2018- novel Coron aviru s (2018nCoV ) not detec betsey by the qRT-P CR assay . If clini rachelle suspi cion for COVID -19 is high, isabelle nue to maint ain preca ution s and consi jamarcus repea t testi ng. Resul t repor betsey to [facility]. This test has been autho rized by the FDA under an Emerg ency Use Autho rizat ion (EUA) for use by autho rized labor atori es. Test perfo rmed by Clini rachelle [facility] at the [facility] [address], [address] [facility] [place] [place] [address] . CLIA ID: [id number] , CAP: [id number] 96. Medic al Direc tor: Holli Mari, [...] may have contr acted the virus . Rochellei bennett is limit ed to the Clini rachelle [facility] or at the [facility] which is certi fied under the Clini [...] histo ry, and epide miolo gical infor jude n. Not Available [facility] (Centralized Electronic Ordering - All Locations) Patient Can Go To The Location Of Their Choice, [id number] 03/27/2020 15:59:28 03/11/20 21 03/11/2021 rapid SARS CoV 2 Ag, QL IA, respi rator y speci men Covid-19 (ref: neg) negati ve Not Available [facility] [address] [place], [address], 03/11/2021 12:44:38 03/11/20 21 03/11/2021 rapid SARS CoV 2 Ag, QL IA, respi rator y speci men Control Visual ized/V alid Not Available [facility] [address] [place], [address], 03/11/2021 12:44:38 03/11/20 21 03/11/2021 rapid SARS CoV 2 Ag, QL IA, respi rator y speci men Location [facility], [facility], [address] [place] [address], [id number] Not Available [facility] [address] [place], [address], 03/11/2021 12:44:38 04/17/19 22 04/17/2021 rapid SARS CoV 2 Ag, QL IA, respi rator y speci men Covid-19 (ref: neg) positi ve Not Available [facility] [address] [place], [address], 04/17/2021 20:23:42 04/17/19 22 04/17/2021 rapid SARS CoV 2 Ag, QL IA, respi rator y speci men Control Visual ized/V alid Not Available [facility] [address] [place], [address], 04/17/2021 20:23:42 04/17/19 22 04/17/2021 rapid SARS CoV 2 Ag, QL IA, respi rator y speci men Location [facility], [facility], [address] [facility], [place] [address], [id number] Not Available [facility] - [facility] [address] [facility], [place], [address], 04/17/2021 20:23:42 Result Notes None recorded. Procedures Surgical History Date Name Laterality Status Provider Name and Address Organization Details Recorded Time procedure on lung completed Monika Aguayo [place] [facility] 03/25/19 17:01:52 ligation of fallopian tube completed Monika Aguayo [place] [facility] 2020 17:01:52 ligation of fallopian tube completed KAYLIE HUFF [address] [place], [address], [place] [facility] 03/25/2020 16:19:48 procedure on lung completed KAYLIE HUFF [address] [place], [address], [place] [facility] 03/25/2020 16:20:09 Imaging Results [...] TOME 2 TABLETAS POR V A ORAL HOYJENNIFEREGO TOME 1 TABLETA POR D A ERIK 4 D 01/30 completed Not Available Not Available Not Available ibuprofen 800 mg tablet TOME EIRCA TABLETA POR V A ORAL TIA VECES [...] completed Not Available Not Available Not Available Winifredaglana Bonilla U-100 Insulin 100 unit/mL (3 mL) subcutaneou s INJECT 6 UNITS (0.06 ML) UNDER THE SKIN IN THE AM active Not Available Not Available No t Available [employer] Mary Ann 14 Day [place] DIRECTED FOUR OR MORE TIMES A DAY [...] /min 120 mm[Hg] 84 mm[Hg] Not Available [facility] 1 16:18:51 Date Recorded Body temperature Heart rate Oxygen saturation Oxygen saturation in Arterial blood by Pulse oximetry Respiratory rate Systolic blood pressure Diastolic blood pressure Provider Name and Address Organization Details Last Updated DateTime 2 97.7 [degF] 78 /min 98 % 98 % 16 /min 118 mm[Hg] 64 mm[Hg] Not Available [facility] 2 20:20:02 Date Recorded Oxygen saturation Oxygen saturation in Arterial blood by Pulse oximetry Body temperature Respiratory rate Heart rate Systolic blood pressure Diastolic blood pressure Provider Name and Address Organization Details Last Updated DateTime 0 96 % 96 % 98.7 [degF] 20 /min 80 /min 90 mm[Hg] 60 mm[Hg] Monika Aguayo [place] [facility] 1 17:01:50 Date Recorded Heart rate Body temperature Respiratory rate Oxygen saturation Oxygen saturation in Arterial blood by Pulse oximetry Systolic blood pressure Diastolic blood pressure Provider Name and Address Organization Details Last Updated DateTime 80 /min 97.5 [degF] 18 /min 99 % 99 % 124 mm[Hg] 64 mm[Hg] Not Available [facility] 12:54:41 Social History Question Answer Notes LastModified by Organizat ion Details LastModified Time Tobacco Smoking Status Never Smoker KAYLIE HUFF [address], [place], [address], [place] [facility] 03/25/2020 16:18:06 Do You Have An Advance Directive? No [email or web address] Information not available 03/25/2020 What Is Your Code Status? Full Code Information not available 03/25/2020 Within The Past 12 Months, Has It Happened That The Food You Bought Just Didn't Last And You Didn't Have Money To Get More. No [email or web address] Information not available 03/25/2020 Within The Past 12 Months, Have You Worried That Your Food Would Run Out Before You Got Money To Buy More. No [email or web address] Information not available 03/25/2020 Fall Risk: Do You Feel Unsteady When Standing Or Walking? Yes [email or web address] Information not available 03/25/2020 We Know That How And When People Interact With Friends And Family Can Be Very Different From Person To Person. How Often Do You Have The Opportunity To See Or Talk To People That You Care About And Feel Close To? (Ex: Talking To Friends On The Phone Or Visiting Friends Or Family Or Going To [employer] Or Club Meetings) 5 Or More Times Per Week [email or web address] Information not available 03/25/2020 Excessive Alcohol Or Drug Use No Information not available 03/25/2020 We Know From Many Of Our Patients That Covering All Of Their Costs Can Be Difficult At Times. This Can Cause Stress And Impact Health. In The Past Year, Have You Been Unable To Get Any Of The Following When It Was Really Needed? No [email or web address] Information not available 03/25/2020 What Is Your Housing Situation Today? I Have Housing [email or web address] Information not available 03/25/2020 Would You Like Help Connecting To Resources? None [email or web address] Information not available 03/25/2020 Sex: Unknown Functional Status None recorded. Mental Status None recorded. Family History Relationship Description Onset Age of this Age Resolved Age Notes LastModified by Organization Details LastModified Time Mother Coronary arterioscler osis [email or web address] Not available 2020 17:01:50 Medical History Condition Response Diabetes Y Coronary Artery Disease N CHF N Cancer Y Stroke Y Asthma N COPD N Depression Y High Cholesterol Y Pulmonary Embolism N Hypertension Y Kidney Disease N Gynecological HistoryNo gynecological history recorded. Obstetrics History GPAL:G 0 P 0 0 0 0 Past Encounters Encounter ID Performer Location Encounter Start Date Encounter Closed Date Diagnosis/Indication Diagnosis SNOMED-CT Code Diagnosis ICD10 Code Diagnosis Note [id number] KAYLIE HUFF [facility] [place] [address] [place] [address] 01/31/2020 13:13:02 02/03/2020 10:54:55 Exposure to communicable disease 772609284 Z20.828 [id number] KAYLIE HUFF [facility] [place] [address] [place] [address] 03/25/2020 15:14:18 03/26/2020 11:25:32 Exposure to communicable disease 560818470 Z20.828 Cough 74865007 R05 [id number] Germain Waldron NP [facility] [place] [address] [place] [address] 03/11/2021 12:37:35 03/16/2021 18:38:11 Viral upper respiratory tract infection 585798977 J06.9 [id number] Samira Brandon NP [facility] [place] [address] [place] [address] 04/17/2021 20:06:36 04/21/2021 10:48:20 Congestion of nasal sinus 49715895 R09.81 COVID-19 343316163 U07.1 Dry cough 95420115 R05.9 Health Concerns Section Related Observation LastModified by Organization Maryse [email or web address] LastModified Time None Recorded Concern Status LastModified by Organization Details LastModified Time None Recorded Advance Directives Directive N: Payers Insurance Date Sequence Insurance Name Policy Number Policy Fuentes Covered Member ID Fuentes Member ID Guarantor Name 06/30/2021 1 [place] [facility] Radha Beckford [id number] Radha Shah 03/12/2021 1 *SELF PAY* Radha Beckford [id number] Radha Starksa 03/12/2021 2 [place] [facility] Radha Sahu [id number] Radha Shah 03/12/2021 1 *SELF PAY* Radha Sahu [id number] Radha Starksa 03/12/2021 1 [place] [facility] Radha Sahu [id number] Radha Shah 03/12/2021 1 [place] B[place] [facility] Radha Sahu [id number] Radha Starksa 03/16/2021 2 [place] [facility] Radha Batresrera [id number] Radha Shah 04/21/2021 1 [facility] - DUAL [place]IGIBLE - [place]PLACEMENT) [id number] Radha Shah [id number] Radha Shah 03/12/2021 2 [place] [facility] Radha Sahu [id number] Radha Starksa 04/21/2021 2 [place] [facility] Radha Shah [id number] Radha Shah 04/21/2021 1 [facility] - [place]IGIBLE [place]) [id number] Radha Starksa [id number] Radha Shah 04/21/2021 1 [facility] (MEDICARE REPLACEMENT/ ADVANTAGE - HMO) [id number] Radha Starksa [id number] Radha Shah Notes Date Note Type Note [...] is her parent's health care proxy KAYLIE HUFF [address] [place], [address], [place] [facility] 01/31/2020 17:03:41 03/25/2020 text/html 64yoF known to Marcin Soto and known to this provider pmhx HTN, [...] No fever, cp or sob. KAYLIE HUFF [address], [place], [address], [place] [facility] 03/25/2020 17:24:37 03/11/2021 text/html Pt states she [...] metformin. Germain Waldron NP [address], [place], [address], [place] [facility] 03/11/2021 13:20:18 04/17/2021 text/html 65 yo f with a P MH of anxiety/depression, DM, HLC, HTN and stroke has had a cough x 2 days with frontal sinus pain. has been sick with similar symptoms. Taking Robitussin DM and provider prescribed Augmentin and prednisone 2 days ago [facility] visit. Samira Brandon NP [address] [place], [address], [place] [facility] 04/20/2021 16:17:15 OBGyn Episode No OBEpisode recorded.
== END 2024-09-13 13:37 | disposition home or self-care (01) ==
LOC: HO.HGI 12:45
PROVIDERS: PCP Internal Medicine; Visit Provider Nurse Practitioner
DX: K59.04 Chronic idiopathic constipation (principal); K21.9 Gastro-esophageal reflux disease without esophagitis; K80.20 Calculus of gallbladder without cholecystitis without obstruction; Z86.0101 Personal history of adenomatous and serrated colon polyps; G47.33 Obstructive sleep apnea (adult) (pediatric); J41.1 Mucopurulent chronic bronchitis
CPT/HCPCS: 99214

== ENCOUNTER → 2024-09-13 12:44 | Outpatient (BNVA) | payer MEDICARE, MEDICAID, SELFPAY | PROVIDERS: PCP Internal Medicine; Visit Provider Nurse Practitioner | DX: Z01.818 Encounter for other preprocedural examination (principal); K59.04 Chronic idiopathic constipation; K21.9 Gastro-esophageal reflux disease without esophagitis; D12.6 Benign neoplasm of colon, unspecified; K80.20 Calculus of gallbladder without cholecystitis without obstruction; G47.33 Obstructive sleep apnea (adult) (pediatric); J41.1 Mucopurulent chronic bronchitis | CPT/HCPCS: 99212 ==

== ENCOUNTER 2024-10-05 11:10 | Outpatient (REF) | payer MEDICARE, MEDICAID, SELFPAY ==
--- OUTSIDE RECORDS SUMMARY | 2024-10-05 12:52 | XMS_ITS | Encounter Summary ---
Author Organization [facility] Address [address] [place] [address] Care Team Providers Care Ward Helper Name Role Phone Leroy Jauregui MD Primary Care Provider Leroy Garcia MD Unavailable Unavailable Pratibha Waggoner MD Unavailable Encounter Details Date Type Department Care Team Description 10/21/2023 Orders Only [facility] Thoracic Surgery [place] [address] [facility] [address] [place] [address] Pratibha Waggoner MD [address] [facility] [address] [place] [address] [phone] Malignant carcinoid tumor of lung (HCC); Pulmonary [...] field documented in this encounter Care Teams Ward Helper Relationship Specialty Start Date End Date Leroy Jauregui MD PCP - General Internal Medicine 11/11/21 Leroy Jauregui MD Internal Medicine 11/11/21 Pratibha Waggoner MD Lung Cancer Furniture Repair Technician 12/28/22 documented as of this encounter
[2024-10-05 15:09] LABS: Bacterial Vaginosis PCR POSITIVE (Negative); Candida Group PCR NOT DETECTED (Not Detect); Candida glab krusei PCR NOT DETECTED (Not Detect); Trichomonas vaginalis PCR NOT DETECTED (Not Detect)
== END 2024-10-05 11:11 | disposition home or self-care (01) ==
LOC: HO.LNP 11:10
PROVIDERS: PCP Internal Medicine; Visit Provider Advanced Practice Midwife
DX: Z01.419 Encounter for gynecological examination (general) (routine) without abnormal findings (principal); N39.3 Stress incontinence (female) (male); L29.2 Pruritus vulvae; Z11.8 Encounter for screening for other infectious and parasitic diseases; Z11.2 Encounter for screening for other bacterial diseases; K52.1 Toxic gastroenteritis and colitis; K59.04 Chronic idiopathic constipation; Z79.899 Other long term (current) drug therapy; Z79.82 Long term (current) use of aspirin; Z98.51 Tubal ligation status
CPT/HCPCS: 81515; 99212; 99397; G0101; Q0091

== ENCOUNTER 2024-10-05 11:10 | Outpatient (AMB) | payer MEDICARE, MEDICAID, SELFPAY ==
--- NOTE | 2024-10-05 11:52 | MHC.OFFVIS ---
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 Intake Note: CHECK UP Turbo Electric Operator Name: DONTE MOYER Information Interpreted: non-clinical & clinical Accompanied by: GRAND DAUGHTER Allergies penicillin G Allergy (Severe, Verified 10/05/24 12:00) Itching latex Allergy (Intermediate, Verified 10/05/24 12:00) Itching nitrofurantoin Allergy (Intermediate, Verified 10/05/24 12:00) itching and redness (in the legs) Medication List - Last Reconciled 10/05/24 by Lily Curiel LPN [ADULT BRIEFS (size XL) As directed] [ADULT PULL-UPS (size XL) As directed] albuterol sulfate 2.5 mg continuous nebulization Q4-6H PRN albuterol sulfate 90 mcg/actuation 2 puffs inhalation QID PRN alcohol swabs 1 pad topical TID amitriptyline 25 mg PO BEDTIME aspirin 81 mg PO DAILY 90 days atorvastatin 40 mg PO DAILY azithromycin 250 mg PO DAILY bisacodyl (Dulcolax (bisacodyl)) 10 mg (2 x 5 mg) PO BEDTIME 2 days blood pressure monitor As directed blood sugar diagnostic (OneTouch Verio test strips) Three times a day blood sugar diagnostic (OneTouch Verio test strips) As directed tests 4X/day blood-glucose meter Three times a day blood-glucose meter (OneTouch Verio Flex Meter) As directed trsts 4 X/day cholecalciferol (vitamin D3) 50 mcg PO DAILY 90 days clotrimazole-betamethasone 1-0.05 % 1 appl topical BID PRN 7 days cyanocobalamin (vitamin B-12) 1,000 mcg PO DAILY 90 days dexlansoprazole 60 mg PO DAILY dextromethorphan HBr 30 mg (2 x 15 mg) PO Q8H PRN 30 days diclofenac sodium 1% (Arthritis Pain (diclofenac)) 2 grams topical QID PRN dicyclomine 20 mg PO QID [DISPOSABLE WIPES As directed] [DISPOSABLE WIPES As directed] famotidine 40 mg PO BEDTIME 15 days flash glucose scanning reader (SensipassStyle Mary [place] 2 [place]) As directed flash glucose sensor (FreeStyle Mary Ann 2 Sensor kit) As directed change every 14 days fluticasone propionate 220 mcg/actuation (Flovent HFA) 1 puff PO BID fluticasone propionate 50 mcg/actuation 2 sprays intranasal DAILY 30 days [FOUR-PRONGED CANE As directed] furosemide 20 mg PO DAILY glucose 12 grams (3 x 4 gram) PO Q15M hydrochlorothiazide 25 mg PO DAILY 90 days hydrocortisone 2.5% 1 appl topical BID PRN hydrocortisone 2.5% (Proctosol HC) 1 appl FL BID ibuprofen 800 mg PO TID PRN ipratropium-albuterol 0.5 mg-3 mg(2.5 mg base)/3 mL 3 mL inhalation QID PRN lancets (OneTouch Delica Lancets) Three times a day lancets (FreeStyle Lancets) As directed three time a day lancets (OneTouch Delica Plus Lancet) As directed-tests 4 X/day lancets (FreeStyle Lancets) As directed lidocaine 5% (Lidoderm) 1 patch topical DAILY 30 days [LIGHTWEIGHT WALKER WITH SEAT walker with seat] linaclotide (Linzess) 72 mcg PO QAM Held on 11/16/23. Instructions: Doctor's Order loratadine 10 mg PO DAILY PRN 90 days lorazepam 1 mg PO BID-TID PRN 30 days memantine 10 mg PO BID metformin 500 mg PO DAILY metoclopramide HCl (Reglan) 5 mg PO .tidachs metoprolol succinate ER 50 mg PO DAILY montelukast 10 mg PO BEDTIME nebulizers As directed nystatin 1 appl topical TID pen needle, diabetic (BD Ultra-Fine Cindy Pen Needle) twice daily pen needle, diabetic (Comfort EZ Pen [place]) As directed injects once a day pregabalin 200 mg PO Q8H 30 days psyllium husk (Metamucil) 1 tbsp PO BID roflumilast (Daliresp) 500 mcg PO DAILY 30 days [ROLLATOR with SEAT As directed] sertraline 50 mg PO DAILY sertraline mg PO Shower Chair As directed sodium,potassium,mag sulfates 17.5-3.13-1.6 gram (Suprep Bowel Prep Kit) 480 mL orally; FOR COLONOSCOPY PREP tiotropium-olodaterol 2.5-2.5 mcg/actuation (Stiolto Respimat) 2 puffs inhalation DAILY tirzepatide (Mounjaro) 2.5 mg (0.5 mL) subcut QWEEK tizanidine 4 mg PO TID PRN tramadol 50 mg PO TID PRN 30 days umeclidinium-vilanterol 62.5-25 mcg/actuation (Anoro Ellipta) 1 inh inhalation DAILY valacyclovir 500 mg PO BID valsartan 320 mg PO DAILY HPI Comments Details: Patient is a postmenopausal woman 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 She is doing well with support director concerns. Anxious today, reports incontinence of urine and bowels. Has not been seen for urological concerns. See's GI. She reports itching on the right labial, no new products. Uses, some brand do not cause irritation. Currently not sexually active in years. Attempting to eat a healthy diet with calcium and vitamin D, uses a cane to ambulate. Last pap smear; 2023, negative. Last mammogram; at [facility], 2023. Colonoscopy is UTD. Denies any family history of breast, ovarian or colon cancer. [facility] Medical History Vulvar itching Stress incontinence Medicare annual wellness visit, subsequent Otitis media of right ear Sore throat Upper respiratory tract infection URI, acute Frequent fecal incontinence Stool incontinence Right sided abdominal pain Frozen shoulder Osteoarthritis Chest pain Calcific tendinitis of left shoulder Weakness of left upper extremity Weakness of both lower extremities Joint pain in fingers of both hands Joint pain in both hands Bilateral knee pain Vitamin B12 deficiency Bilateral ankle pain Rash Right foot pain Medicare annual wellness visit, subsequent Cervical cancer screening Bronchopneumonia Chronic low back pain Bilateral foot pain Bilateral hip pain Annual physical exam Hyperlipidemia LDL goal <70 Bilateral hip pain Fibromyalgia Chronic bronchitis Vitamin D deficiency Post-thoracotomy pain syndrome COPD (chronic obstructive pulmonary disease) Depression Anxiety Type 2 diabetes mellitus with diabetic polyneuropathy Pulmonary nodules Allergic rhinitis GERD (gastroesophageal reflux disease) Morbid obesity with BMI of 40.0-44.9, adult Asthma Obstructive sleep apnea Lumbar degenerative disc disease Carcinoid tumor Coronary artery disease Benign essential hypertension Type 2 diabetes mellitus with hyperglycemia, with long-term current use of insulin Surgical History History of rectal sphincterotomy (~11/2013) History of colonoscopy (~12/2013) History of tubal ligation History of lung biopsy (~07/2016) History of esophagogastroduodenoscopy (EGD) (~10/2011) History of lobectomy of lung (~08/2016) History of cardiac cath (~07/2018) Family History Father Stroke Hypertension Diabetes Mother Diabetes Hypertension Other Arthritis Lupus Social History Household Members: Spouse Housing: Apartment Alcohol intake: never Patient Tobacco Use Status: Former Tobacco user Tobacco use type: Cigarette e-Cigarette/Vaping Use: Never Used Second Hand Smoke Exposure: Yes service: No Current occupational status: disabled Cognitive needs: No Hearing needs: No Vision needs: Yes Female Reproductive History Menstrual Date of last pap smear: 06/17/23 History of abnormal pap smear: No Date of Mammogram: 07/07/23 Review of Systems Const All systems reviewed & are unremarkable except as noted in HPI and below Reports as per HPI Eyes Reports no additional complaints ENT Reports no additional complaints Card Reports no additional complaints Resp Reports no additional complaints GI Reports as per HPI and Reports no additional complaints Reports as per HPI Musc Reports no additional complaints Skin/Breast Reports as per HPI Neuro Reports no additional complaints Psych Reports no additional complaints Endo Reports no additional complaints Jack/Lymph Reports no additional complaints Aller/Immun Reports no additional complaints Physical Exam Vital Signs: Last Vital Signs BP 124/74 10/05/24 11:54 BMI result Body Mass Index 42.3 Const General: cooperative, healthy appearing, no acute distress, well developed and alert Orientation/consciousness: patient oriented x3 HEENT Head: Yes normal to inspection Eyes General: appearance normal, both eyes and all related structures Neck Neck: Yes normal visual inspection Thyroid: Thyroid normal Chest Chest palpation & inspection: normal inspection of the chest and other (no puckering, dimpling, peau de orange, retraction, discharge, masses) Breast/axilla inspection: normal inspection of the breasts Breast/axilla palpation: normal palpation of the breasts Resp Effort & Inspection: normal respiratory effort GI Inspection: Yes normal to inspection Palpation (GI): Soft to palpation Rectal Exam - Female: deferred General: Yes bladder normal to palpation External Female Exam: normal external appearance and normal appearance of the urethra Speculum Exam - Vagina: normal appearance of the vagina, normal palpation, normal vaginal discharge and vagina atrophic Speculum Exam - Cervix: normal appearance of the cervix and normal palpation Bimanual exam- vagina & uterus: normal bimanual exam, normal palpation, uterine size normal, bladder normal to palpation, normal palpation and non-tender Bimanual Exam- Adnexa, other: no masses Skin General skin exam: no rashes or lesions noted Rashes: no rashes Neuro General: patient oriented x3 Cognition (Neuro): normal cognition Extrem General: Yes normal to inspection Psych Attitude: cooperative Thought process: Normal thought process present Assessment & Plan Assessment & Plan (1) Encounter for well woman exam with routine gynecological exam: Code(s): Z01.419 - Encounter for gynecological examination (general) (routine) without abnormal findings Category: Medical Plan: Discussed: Current recommendations for pap smears per ASCCP guidelines. Breast awareness, periodic self breast exams and yearly mammogram. Maintain a healthy lifestyle, well balanced diet including Calcium 1,200 mg and Vitamin D 600 IU daily, and routine exercise. Contact the office with any postmenopausal bleeding. Patient verbalizes understanding and agrees to the plan of care. She was given opportunity to ask questions and all questions were answered to the best of my ability. RTO in 1 year for annual support director exam. This note is constructed using voice recognition software. While every effort has been made to ensure accuracy, basket braider errors may have been included. (2) Stress incontinence: Code(s): N39.3 - Stress incontinence (female) (male) Category: Medical Plan: Discussed: Pelvic floor therapy versus urology consult, she opts for urology- Referral placed to urology. (3) Vulvar itching: Code(s): L29.2 - Pruritus vulvae Category: Medical Plan Discussed: Normal skin findings today. Avoidance of skin irritations. BV panel obtained await results for final plan of care. If itching persists to follow up in the office. The patient expressed understanding and agreement with the plan of care. All of her questions and concerns were addressed to the best of my ability. Orders: Orders Bacterial Vaginosis Panel Today Larissa Power CNM L29.2 - Pruritus vulvae Referrals Urology Referral Larissa Power CNM N39.3 - Stress incontinence (female) (male) Medications: Resumed linaclotide (Linzess) 72 mcg PO QAM 30 caps 6RF June GENO Beck-C K52.1 - Toxic gastroenteritis and colitis, K59.04 - Chronic idiopathic constipation linaclotide (Linzess) 72 mcg PO QAM 30 caps 6RF June GENO Beck-C K52.1 - Toxic gastroenteritis and colitis, K59.04 - Chronic idiopathic constipation Coding Level of Care Code Est Pt Prev Care >65y(55773) Diagnoses Encounter for well woman exam with routine gynecological exam Z01.419 Stress incontinence N39.3 Vulvar itching L29.2
[2024-10-05 11:54] VITALS: BP 124/74; BMI 42.3
--- OUTSIDE RECORDS SUMMARY | 2024-10-05 12:04 | XMS_ITS | Clinical Summary ---
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 Plan from our standpoint will be for a 1 year follow-up CT scan of the chest and a visit in this office after that. All questions were answered. This visit was done through the video batch mixing truck driver services. Chronic obstructive pulmonar y disease ([facility] V24, [facility] V28) 09/29/2016 Obstructive sleep apnea [...] Depression 04/04/2012 DM2 (diabetes mellitus, type 2) ([facility] V24, [facility] V28) 04/04/2012 Hyperlipidemia with target [...] < 70 DM2 (diabetes mellitus, type 2) ([facility] V24, [facility] V28) 04/04/2012 DX:DM2 (diabetes mellitus, t ype 2) ([facility]) Lumbar disc disease 04/04/2012 DX:Lumbar di sc disease Depression 04/04/2012 DX:Depression Anxiety 04/04/2012 DX:Anxiety Obesity 04/04/2012 DX:Obesity LBBB (left bundle branch block) 04/04/2012 DX:LBBB (left bundle branch block) Emphysema lung ([facility] V24, [facility] V28) DX:Emphysema lung (HCC) Fibromyalgia DX:Fibromyalgia Arthritis [...] Panel) 02/21/2022 Colorectal Cancer Screening: Colonoscopy 02/21/2022 Falls Risk Assessment 02/21/2022 Hepatitis C Screening 02/21/2022 Medicare Annual Wellness Visit 02/21/2022 Osteoporosis Screening (Bone Density Screening) 02/21/2022 Social Influencers of Health Screening 02/21/2022 Diabetes: Annual Urine Albumin-Creatinine Ratio (uACR) 02/28/2022 Diabetes: Blood Sugar Control Test (HGBA1C) 02/28/2022 Hypertension/CHF/CAD Annual BMP Blood Test 02/28/2022 Depression Screening 03/15/2024 COVID-19 Vaccine (7 - Pfizer risk season) 2024 11/11/2023, 02/18/2023, 12/17/2021, Additional history exists Influenza Vaccine (#1) 2024 , 02/14/2021, 01/11/2020, Additional history exists DTaP,Tdap,and [...] Procedure Name Priority Date/Time Associated Diagnosis Comments [facility] SCREENING DIGITAL Routine 06/16/2023 11:59 AM EDT Encounter for screening mammogram for malignant neoplasm of breast from Last 3 Months or Most Recently Relevant to Health Maintenance Results * [facility] SCREENING DIGITAL (06/16/2023 11:59 AM EDT) Anatomical Region Laterality Modality Mammography 06/16/2023 10:3 6 AM EDT Narrative 06/16/2023 11:59 AM EDT [facility] Diagnostic Imaging Department [address] [place] [address] Patient: PATO SAHU I /Age/Sex: 1955 - 67 - F Unit#: [id number] Location/Status: SPDIMAM/REG CLI Mnemonic/Ordering Site: [facility] Ordering Physician: LEROY SANCHEZ MD [facility] Screening Digital - 06/16/23 - 1106 Report Status:Signed EXAM: [facility] Screening Digital EXAM DATE AND TIME: 06/16/2023 11:07 AM HISTORY: Annual screening COMPARISON: Multiple exams dating back to 2016 TECHNIQUE: Bilateral digital breast tomosynthesis was performed in the CC and MLO projections. Computer aided detection with Panoratio 3D 3.1 was employed. TISSUE DENSITY: b. [...] Procedure Note Wally Moeller MD - 11/01/2023 [facility] Diagnostic Imaging Department [address] [place] [id number] Patient: PATO SAHU Nikki /Age/Sex: 1955 - 67 - F Unit#: [id number] Location/Status: SPDIMAM/REG CLI Mnemonic/Ordering Site: [facility] Ordering Physician: LEROY SANCHEZ MD [facility] Screening Digital - 06/16/23 - 1106 Report Status:Signed EXAM: [facility] Screening Digital EXAM DATE AND TIME: 06/16/2023 11:07 AM HISTORY: Annual screening COMPARISON: Multiple exams dating back to 2016 TECHNIQUE: Bilateral digital breast tomosynthesis was performed in the CCand MLO projections. Computer aided detection with Panoratio 3D 3.1was employed. TISSUE DENSITY: b. There [...] MEDICARE ADVANTAGE [place] - [place] Care Teams Critical Care Paramedic Relationship Specialty Start Date End Date Leroy Sanchez MD [address] [place] [address] [address] RAN Suarez PCP - General Internal Medicine 11/27/11
--- OUTSIDE RECORDS SUMMARY | 2024-10-05 12:04 | XMS_ITS | Data Portability ---
Author Organization [place] - [facility] Address [address] [place] [address] Care Team Providers Care Silverware Assembler Name Role Phone SOFIA SANCHEZ Primary Care Provider [phone] Assessment Encounter Date Assessment Date Assessment LastModified [...] after care of this patient according to [facility]'s infection prevention protocols. Time On Scene with Patient: 00:28:11 [email or web address] Not available 01/31/2020 17:03:32 03/25/2020 03/25/2020 History [...] for the patient DHMT and I wore Z86kdsto, gowns, gloves and eye protection throughout entire visit Time On Scene with Patient: 01:00:23 [email or web address] Not available 03/25/2020 17:24:30 03/11/2021 03/11/2021 Overview/History [...] after care of this patient according to [facility]'s infection prevention protocols. [email or web address] Not available 03/11/2021 13:19:16 04/17/2021 04/17/2021 Overview/History [...] after care of this patient according to [facility]'s infection prevention protocols. Time On Scene with Patient: 00:23:01 [email or web address] Not available 04/20/2021 16:17:01 Plan of Treatment Reminders Order Date Submit Date Provider Last Modified By Organization Details Last Modified Time Details Appointments None recorded. Lab rapid SARS CoV 2 Ag, QL IA, respiratory specimen 2021 022 [email or web address] [facility], [address] [place], [address], 2 20:26:57 rapid SARS CoV 2 Ag, QL IA, respiratory specimen 2020 021 [email or web address] [facility], [address] [facility], [place], [address], 13:19:33 SARS CoV 2 RNA (COVID-19), QL, clinical informatics director-PCR, respiratory specimen 2020 021 [place] [facility] (Centralized Electronic Ordering - All Locations), Patient Can Go To The Location Of Their Choice, [facility] 15:59:29 SARS CoV 2 RNA (COVID-19), QL, clinical informatics director-PCR, respiratory specimen 2019 020 [email or web address] [facility] (Centralized Electronic Ordering - All Locations), Patient Can Go To The Location Of Their Choice, [facility] 17:01:51 Referral None recorded. Procedures None recorded. Surgeries None recorded. Imaging None recorded. Medication Orders fluticasone propionate 50 mcg/actuati on nasal spray,suspe nsion 2021 022 [facility] #[id number], [address] [facility] [address], [place], [address], 20:27:06 Patient TargetsNo targets recorded. Patient Instructions Encounter Date Encounter Id Patient Instructions Last Modified By Organization Details Last Modified Time 01/31/2020 [id number] YOU WERE BOTH TESTED TODAY FOR COVID [...] MEDICATIONS Thank you for your visit with [facility] today. We cannot always find the exact [...] in your condition between 8am-10pm, please call [facility] at [phone] to help navigate your care. I Not available 01/31/2020 13:52:04 03/11/2021 [id number] Viral Illness Discharge Instructions BASIC INFORMATION A [...] in your condition between 8am-10pm, please call [facility] at [phone] to help navigate your care. [email or web address] Not available 03/11/2021 13:19:32 04/17/2021 [id number] Viral Illness Discharge Instructions BASIC INFORMATION A [...] condition between 8am-10pm, please call [facility] at [phone] to help navigate your care. [email or web address] Not available 04/17/2021 20:29:08 Reason for Referral None Reported. Results Created Date Observation Date Name Description Value Unit Range Abnormal Flag Note LastModifiedBy Organization Detail LastModifiedTime 01/31/20 20 02/03/2020 SARS CoV 2 RNA (COVI D-19) , QL, clinical informatics director-P CR, respi rator y speci men [...] Go To The Location Of Their Choice, [id number] 02/03/2020 10:14:50 03/25/19 21 03/27/2020 SARS CoV 2 RNA (COVI D-19) , QL, clinical informatics director-P CR, respi rator y speci men covid-19, (RT)-PCR (neg) NEGAT FUNMILAYO 2018- novel Coron aviru s (2018nCoV ) not detec betsey by the qRT-P CR assay . If clini rachelle suspi cion for COVID -19 is high, isabelle nue to maint ain preca ution s and consi jamarcus repea t testi ng. Resul t repor betsey to [facility]. This test has been autho rized by the FDA under an Emerg ency Use Autho rizat ion (EUA) for use by autho rized labor atori es. Test perfo rmed by Clini rachelle [facility] at the [facility] of [facility] and [address], [address] [place] [address] . CLIA ID: [id number] , CAP: [id number] 96. Medic al Direc tor: Holli Mari, [...] limit ed to the Clini rachelle Res[facility] or at the [facility] which is certi fied under the [...] Go To The Location Of Their Choice, [id number] 03/27/2020 15:59:28 03/11/20 21 03/11/2021 rapid SARS CoV 2 Ag, QL IA, respi rator y speci men Covid-19 (ref: neg) negati ve Not Available [facility] [address] [place], [address], 03/11/2021 12:44:38 03/11/20 21 03/11/2021 rapid SARS CoV 2 Ag, QL IA, respi rator y speci men Control Visual ized/V alid Not Available [facility] [address] [place], [address], 03/11/2021 12:44:38 03/11/20 21 03/11/2021 rapid SARS CoV 2 Ag, QL IA, respi rator y speci men Location [facility], [address] [place] [address], [id number] Not Available [facility] [address] [place], [address], 03/11/2021 12:44:38 04/17/19 22 04/17/2021 rapid SARS CoV 2 Ag, QL IA, respi rator y speci men Covid-19 (ref: neg) positi ve Not Available [facility] [address] [place], [address], 04/17/2021 20:23:42 04/17/19 22 04/17/2021 rapid SARS CoV 2 Ag, QL IA, respi rator y speci men Control Visual ized/V alid Not Available [facility] [address] [place], [address], 04/17/2021 20:23:42 04/17/19 22 04/17/2021 rapid SARS CoV 2 Ag, QL IA, respi rator y speci men Location [facility], [facility], [address] [facility], [place] [address], [id number] Not Available [facility] [address], [place], [address], 04/17/2021 20:23:42 Result Notes None recorded. Procedures Surgical History Date Name Laterality Status Provider Name and Address Organization Details Recorded Time procedure on lung completed Monika [place] [facility] 03/25/19 17:01:52 ligation of fallopian tube completed Monika [place] [facility] 2020 17:01:52 ligation of fallopian tube completed KAYLIE HUFF [address] [place], [address], [place] [facility] 03/25/2020 16:19:48 procedure on lung completed KAYLIE HUFF [address] [place], [address], [place] [facility] 03/25/2020 16:20:09 Imaging Results [...] TOME ERICA TABLETA POR V A ORAL TAI VECES AL D A ANTES DE LAS [...] t Available Free[employer] Mary Ann 14 Day Walton DIRECTED FOUR OR MORE TIMES A DAY [...] Respiratory rate Body temperature Heart rate Systolic And Diastolic Provider Name and Address Organization Details Last Updated DateTime 1 99 % 99 % 20 /min 97.5 [degF] 84 /min 120/84 mm[Hg] Not Available [facility] 1 16:18:51 Date Recorded Body temperature Heart rate Oxygen saturation Oxygen saturation in Arterial blood by Pulse oximetry Respiratory rate Systolic And Diastolic Provider Name and Address Organization Details Last Updated DateTime 2 97.7 [degF] 78 /min 98 % 98 % 16 /min 118/64 mm[Hg] Not Available [facility] 2 20:20:02 Date Recorded Oxygen saturation Oxygen saturation in Arterial blood by Pulse oximetry Body temperature Respiratory rate Heart rate Systolic And Diastolic Provider Name and Address Organization Details Last Updated DateTime 0 96 % 96 % 98.7 [degF] 20 /min 80 /min 90/60 mm[Hg] Monika [place] [facility] 1 17:01:50 Date Recorded Heart rate Body temperature Respiratory rate Oxygen saturation Oxygen saturation in Arterial blood by Pulse oximetry Systolic And Diastolic Provider Name and Address Organization Details Last Updated DateTime 80 /min 97.5 [degF] 18 /min 99 % 99 % 124/64 mm[Hg] Not Available [facility] 12:54:41 Social History Question Answer Notes LastModified by Organizat ion Details LastModified Time Tobacco Smoking Status Never Smoker KAYLIE HUFF [address], [address], [place] [facility] 03/25/2020 16:18:06 Do You Have An Advance Directive? No Information not available 03/25/2020 What Is Your Code Status? Full Code [email or web address] Information not available 03/25/2020 Within The Past 12 Months, Has It Happened That The Food You Bought Just Didn't Last And You Didn't Have Money To Get More. No [email or web address] Information not available 03/25/2020 Within The Past 12 Months, Have You Worried That Your Food Would Run Out Before You Got Money To Buy More. No [email or web address] Information not available 03/25/2020 Fall Risk: Do You Feel Unsteady When Standing Or Walking? Yes [email or web address] Information not available 03/25/2020 We Know That How And When People Interact With Friends And Family Can Be Very Different From Person To Person. How Often Do You Have The Opportunity To See Or Talk To People That You Care About And Feel Close To? (Ex: Talking To Friends On The Phone Or Visiting Friends Or Family Or Going To Quaker Or Club Meetings) 5 Or More Times Per Week [email or web address] Information not available 03/25/2020 Excessive Alcohol Or Drug Use No [email or web address] Information not available 03/25/2020 We Know From Many Of Our Patients That Covering All Of Their Costs Can Be Difficult At Times. This Can Cause Stress And Impact Health. In The Past Year, Have You Been Unable To Get Any Of The Following When It Was Really Needed? No [email or web address] Information not available 03/25/2020 What Is Your Housing Situation Today? I Have Housing [email or web address] Information not available 03/25/2020 Would You Like Help Connecting To Resources? None Information not available 03/25/2020 Sex: Unknown Functional Status None recorded. Mental Status None recorded. Family History Relationship Description Onset Age of this Age Resolved Age Notes LastModified by Organization Details LastModified Time Mother Coronary arterioscler osis Not available 2020 17:01:50 Medical History Condition [...] SNOMED-CT Code Diagnosis ICD10 Code Diagnosis Note [id number] KAYLIE HUFF [facility] [address] [facility] [place] [address] 01/31/2020 13:13:02 02/03/2020 10:54:55 Exposure to communicable disease 726804848 Z20.828 [id number] KAYLIE HUFF [facility] [address] [facility] [place] [address] 03/25/2020 15:14:18 03/26/2020 11:25:32 Exposure to communicable disease 362615238 Z20.828 Cough 50322764 R05 [id number] Germain Waldron NP [facility] [address] [facility] [place] [address] 03/11/2021 12:37:35 03/16/2021 18:38:11 Viral upper respiratory tract infection 830300872 J06.9 [id number] Samira Brandon NP [facility] [address] [facility] [place] [address] 04/17/2021 20:06:36 04/21/2021 10:48:20 Congestion of nasal sinus 55938440 R09.81 COVID-19 467877932 U07.1 Dry cough 77189420 R05.9 Health Concerns Section Related Observation LastModified by Organization Detai ls LastModified Time None Recorded Concern Status LastModified by Organization Details LastModified Time None Recorded Advance Directives Directive N: Payers Insurance Date Sequence Insurance Name Policy Number Policy Fuentes Covered Member ID Fuentes Member ID Guarantor Name 06/30/2021 1 [place] [facility] Radha Beckford [id number] Radha Shah 03/12/2021 1 *SELF PAY* Radha Batresere [id number] Radha Starksa 03/12/2021 2 [place] [facility] Radha Sahu [id number] Radha Starksa 03/12/2021 1 *SELF PAY* Radha Sahu [id number] Radha Shah 03/12/2021 1 [place] [facility] Radha Sahu [id number] Radha Starksa 03/12/2021 1 [place] B[place] [facility] Radha Sahu [id number] Radha Starksa 03/16/2021 2 [place] [facility] Radha Batresrera [id number] Radha Starksa 04/21/2021 1 [facility] - D[place]IGIBLE - [place]ICARE - [place]PLACEMENT) [id number] Radha Starksa [id number] Radha Starksa 03/12/2021 2 [place] [facility] Radha Sahu [id number] Radha Starksa 04/21/2021 2 [place] [facility] Radha Starksa [id number] Radha Starksa 04/21/2021 1 [facility] - D[place]IGIBLE - [place] ([place] - [place]) [id number] Radha Starksa [id number] Radha Starksa 04/21/2021 1 [facility] (MEDICARE REPLACEMENT/ ADVANTAGE - HMO) [id number] Radha Starksa [id number] Radha Shah Notes Date Note Type Note [...] health care proxy KAYLIE HUFF [address], [place], [address], [place] [facility] 01/31/2020 17:03:41 03/25/2020 text/html 64yoF known to and known to this [...] or sob. KAYLIE HUFF [address], [place], [address], [place] [facility] 03/25/2020 17:24:37 03/11/2021 text/html Pt states she began having nasal congestion and runny nose 2-3 days ago and was exposed to someone with COVID-19 7 days ago. She denies any fever chills, nausea, vomiting, cough, or shortness of breath. SHe states she did have a couple episodes of diarrhea yesterday but this is not abnormal for her due to taking metformin. Germain Waldron NP [address], [place], [address], [place] [facility] 03/11/2021 13:20:18 04/17/2021 text/html 65 yo f with a PMH of anxiety/depression, DM, HLC, HTN and stroke has had a cough x 2 days with frontal sinus pain. has been sick with similar symptoms. Taking Robitussin DM and provider prescribed Augmentin and prednisone 2 days ago [facility] visit. Samira Brandon NP [address], [place], [address], [place] [facility] 04/20/2021 16:17:15 OBGyn Episode No OBEpisode recorded.
--- OUTSIDE RECORDS SUMMARY | 2024-10-05 12:04 | XMS_ITS | Patient Health Record ---
Author Organization [facility] Address [address] [place] [address] Care Team Providers Care Medical Record Technician Name Role Phone Juventino CHOPRA [place] Primary Care Provider Jeffrey Gerard [phone] Reason For Referral No Information Medications Medication [...] Status Risk Notes Problem Blood in stool (880829903) Blood in stool (578.1) Active confirmed Problem Constipation (41898910) Constipation (564.00) Active confirmed Problem Gastroesophageal reflux disease (286063617) GERD (gastroesophage al reflux disease) (530.81) Active confirmed Plan Of Treatment Future Test Test Name Order Date COLONOSCOPY 11/14/2013 Insurance Providers Payer Name Payer Address Payer Phone Subscriber Number Group Number Insured Name Patient Relationship to Insured Coverage Start Date Coverage End Date [facility] [address] [place] [phone] [id number] PATO HAYNES Self - patient is the insured Medical (General) History Medical History History ICD Code NIDDM Asthma Denies DE,CVA,renal disease EGD in 10/[address] RobledoDxnrzk-aat-xxakqc gastric bx-neg H.pylori HTN Had a sleep study in 10/2013-awaiting res ults Neg GB U/S in 09/2013 Depression Hyperlipidemia Surgical History Surgery Date(Month/Year) tubal ligation ear surgery
== END 2024-10-05 12:30 | disposition home or self-care (01) ==
LOC: HO.HWS 11:10
PROVIDERS: PCP Internal Medicine; Visit Provider Advanced Practice Midwife
DX: Z01.419 Encounter for gynecological examination (general) (routine) without abnormal findings (principal); N39.3 Stress incontinence (female) (male); L29.2 Pruritus vulvae
CPT/HCPCS: 99397; 99459

== ENCOUNTER 2024-10-17 14:02 | Outpatient (AMB) | payer MEDICARE, MEDICAID, SELFPAY ==
--- NOTE | 2024-10-17 14:04 | A.OFFVIS_ITS ---
Vital Signs 10/17/24 14:05 Height 5 ft 1 in Weight 219 lb 5.759 oz BMI 41.4 BP 120/60 Blood Pressure Location Rt brachial Position Sitting Pulse 73 Pulse Source Pulse Oximeter Pulse Oximetry (%) 96 Oxygen Delivery Method Room Air Intake Visit Reasons: COPD Allergies penicillin G Allergy (Severe, Verified 10/17/24 14:08) Itching latex Allergy (Intermediate, Verified 10/17/24 14:08) Itching nitrofurantoin Allergy (Intermediate, Verified 10/17/24 14:08) itching and redness (in the legs) HPI Comments Details: The patient is a 69-year-old woman known carcinoid tumor status post resection. The patient also has a history of asthma and obstructive sleep apnea. She has been using the new respironic dream station. She is using more than 4 hours a night. However, she has not gotten any supplies. I did call her [employer] company and sent they will facilitate some supplies. In the meantime I did provide her mask F30 that she can try. Her asthma appears to be stable with the current respiratory medications. She has not had to use her rescue inhaler and she has not to use prednisone. She has been complaining of some discomfort over the right flank area. 03/25/2023 the patient is here for pulmonary follow-up visit. Overall she is doing better. She did complain the prednisone and the antibiotics during the last visit. Her chest discomfort is better. We did discuss and review the images from her last CT scan back in September 2022 with stable postoperative changes stable pulmonary nodules. She is due for repeat CT scan in September 2023. she continues use respiratory therapy with good effect. Her sleeping is overall better. again, her sleep study did not demonstrate any sleep apnea. She is using the Stiolto in the Flovent. These inhalers have been effective. Her respiratory exam is reassuring. The patient continues to do well will consider minimizing the inhaled steroid component. 08/05/2023 the patient is here for a pulmonary follow-up visit. The patient is still no better. She is still coughing. She had called a few weeks ago and I did send her a course of doxycycline. She did not feel like she completely improved she still having hard time with cough. Moderate severity. Denies any wheezing or chest tightness. She denies any fevers or chills. In addition to that she has been complaining of significant daytime drowsiness. She had been on CPAP before we had gotten multiple sleep studies but they have been negative for any sleep apnea. Although these were home sleep studies and the patient was not able to adequately sleep well during the study. She does have an elevated Wilberforce score of 13/24. She does have cardiovascular risk factors. She also carries a diagnosis of sleep apnea. Will go ahead and request a repeat in-lab sleep study in order to get her back on CPAP. The patient also been followed closely for carcinoid lung cancer. The patient also has multiple pulmonary no dules that are being followed. Her last CT scan was 11/01/2022 and she is due for CT scan in 2023. Will go ahead and follow up with the patient after her CT scan in her sleep study. In the meantime will send her a 2nd course of antibiotics to treat her for bronchitis. She does not have any wheezing so therefore hold off on any prednisone. 11/11/2023 the patient is here for a pulmonary follow-up visit. The patient was in her usual state health until the last few months. She has not been feeling well she has had this productive cough now for several months. The last time she was here she was given Vantin but she did not feel like it helped. She still bringing up phlegm usually whitish or yellowish in color. Denies any hemoptysis. Typically sounds barky in nature. She has not underlying chronic bronchitis. Will going to go ahead and start her on azithromycin 3 times a week. In addition to that if she is no better she will get a sputum culture. She did have a CT scan of the chest done recently done on 10/18/2023 [facility]. It appears that she has a growing or new right upper lobe pulmonary nodule measuring 6 mm in size. The largest nodule that she had there a year ago was only 3 mm in size. Therefore, she is scheduled to go for repeat CT scan in 3-6 months. She will do that at [facility] as well. We did talk about the relevance of that. In the meantime will go ahead and treat her for the chronic bronchitis. She will continue with respiratory therapy. 12/23/2023 the patient is here for a pulmonary follow-up visit. She continues to have significant daytime drowsiness. Her Wilberforce score is elevated 12/24. She was scheduled for the sleep study but then she had to reschedule. She has a new date sometime in January. The patient also has been having issues with a productive cough. She did complete the antibiotics and her mucus is clear but she still having significant chest congestion. Moderate severity. The only thing that helps her is when she goes on prednisone. Explained to her the concerns about using prednisone and worsening her other comorbidities. Therefore based on her chronic bronchitis and her frequent use of prednisone she will be a perfect candidate for Daliresp. We did talk about the adverse effects. Will go ahead and start her on the 500 mcg dose but she started every other day or so to get used to it. The patient also will be provided some prednisone case she gets worse but she should hold off for now. In addition to that she was found to have a new nodule back in October at [facility] was a 6 mm nodule. She is scheduled to have a repeat CT scan at [facility] in January. 05/02/2024 the patient is here for a pulmonary follow-up visit. Overall the patient has been doing well. She did start azithromycin 3 times a week and seems to be controlling her cough and chest congestion. Therefore will continue. She will need to get an EKG. In addition to that she did have a CT scan of the chest done in [facility]. Demonstrating that the 6 mm nodule decreased down to 4 mm in the other nodules are stable. She has not reticular changes likely postoperative changes which are not significant and done appear to be progressive. In addition to that she is struggling with CPAP. She is trying to use it but she does not feel like her mask is comfortable. I did call [facility] to see if they can switch her mask to an N20 mask. She will take it to her next appointment with [facility] to try to have some additional teachings in order to be able to be effective in using her CPAP. She needs to be able to use it 4 hours daily. She will follow-up in 3-4 months if she has any issues prior to that she will call for an earlier assessment. 08/28/2024 the patient is here for pulmonary follow-up visit. Overall she is doing okay. She has multiple elements including shortness of breath. Gets very winded with minimal activity. Also has significant arthritis and abdominal discomfort. This may be also playing a role in her dyspnea symptoms. She did recently have a CT scan of the chest I believe at [facility] to the thoracic surgery Department. Will request a copy. On previous CAT scan she was noted to have some gallstones. She is having right upper quadrant abdominal discomfort. During the visit we did go for brief walking oximetry the patient is oxygen seems to be doing okay. She may have more issues with bronchospasms during the day when she is outside walking and humidity that can also cause her to have bronchospasms. Therefore she can use her rescue inhaler prior to doing any activity specially outside. She continues use her CPAP. She is asking for smaller mask. I did provide her with an N30 I medium-sized mask. She is going to use it. Will request from from the [employer] as well. The CPAP therapy has been affecting beneficial and she does try to use it 4 hours a night as this is very important for her. Will follow-up in 4 months. If she has any issues prior to this she will call otherwise she will continue her current respiratory therapy and will follow-up with her primary care doctor regarding her abdominal symptoms and question of gallbladder disease. Tele if her symptoms were to worsen she would have to go to the ER for immediate care. 10/17/2024 the patient is here for pulmonary follow-up visit. She has multiple complaints. She had been sick with worsening cough chest tightness. She was prescribed prednisone and antibiotics. Her cough is now getting a little better although she still feels chest discomfort both lungs. Also complains of back pain. She has significant back issues. In addition to that she started developing elevated blood sugars because of the prednisone. Therefore we need to be careful with too much prednisone. The patient will be a good candidate for Ohtuvayre in order to treat her chronic bronchitis COPD and minimize the prednisone use. Will go ahead and request that from the pharmacy. In the meantime the patient does have a history of carcinoid lung cancer. She had her last CT scan in the fall of 2023 at [facility]. She has multiple pulmonary nodules. Will plan to repeat the CAT scan fall 2024. If her symptoms worsen she can always get an x-ray quicker to make sure that there isn't any ongoing lower respiratory infection. Right now will hold off on the azithromycin. She can continue with respiratory medicines. Her nebulizer broke and she does need a replacement. CPAP therapy has been affecting beneficial. She does use it for more than for them 4 hours a night. She gets her supplies from her [employer] company, [employer]. She would like to try new mask, F40. Will request the F40 fullface mask started kit. [facility] Medical History Vulvar itching Stress incontinence Medicare annual wellness visit, subsequent Otitis media of right ear Sore throat Upper respiratory tract infection URI, acute Frequent fecal incontinence Stool incontinence Right sided abdominal pain Frozen shoulder Osteoarthritis Chest pain Calcific tendinitis of left shoulder Weakness of left upper extremity Weakness of both lower extremities Joint pain in fingers of both hands Joint pain in both hands Bilateral knee pain Vitamin B12 deficiency Bilateral ankle pain Rash Right foot pain Medicare annual wellness visit, subsequent Cervical cancer screening Bronchopneumonia Chronic low back pain Bilateral foot pain Bilateral hip pain Annual physical exam Hyperlipidemia LDL goal <70 Bilateral hip pain Fibromyalgia Chronic bronchitis Vitamin D deficiency Post-thoracotomy pain syndrome COPD (chronic obstructive pulmonary disease) Depression Anxiety Type 2 diabetes mellitus with diabetic polyneuropathy Pulmonary nodules Allergic rhinitis GERD (gastroesophageal reflux disease) Morbid obesity with BMI of 40.0-44.9, adult Asthma Obstructive sleep apnea Lumbar degenerative disc disease Carcinoid tumor Coronary artery disease Benign essential hypertension Type 2 diabetes mellitus with hyperglycemia, with long-term current use of insulin Surgical History History of rectal sphincterotomy (~11/2013) History of colonoscopy (~12/2013) History of tubal ligation History of lung biopsy (~07/2016) History of esophagogastroduodenoscopy (EGD) (~10/2011) History of lobectomy of lung (~08/2016) History of cardiac cath (~07/2018) Family History Father Stroke Hypertension Diabetes Mother Diabetes Hypertension Other Arthritis Lupus Social History Household Members: Spouse Housing: Apartment Alcohol intake: never Patient Tobacco Use Status: Former Tobacco user Tobacco use type: Cigarette e-Cigarette/Vaping Use: Never Used Second Hand Smoke Exposure: Yes service: No Current occupational status: disabled Cognitive needs: No Hearing needs: No Vision needs: Yes Review of Systems Const Reports difficulty sleeping, Denies fatigue, Denies fever(s), Denies night sweats, Denies poor appetite, Reports snoring and Denies weight loss ENT Reports Normal hearing present, Denies dental pain, Denies dysphagia, Denies hearing loss, Denies mouth pain, Denies odynophagia, Denies throat swelling, Denies tongue swelling and Reports other (Dentition adequate) Card Denies chest pain and Reports dyspnea on exertion Resp Reports change in phlegm color, Reports chest congestion, Reports cough, Reports dyspnea on exertion, Reports snoring and Reports wheezing GI Reports abdominal pain, Denies melena, Reports bloating, Denies hematochezia, Denies constipation, Denies GI cramping, Denies dysphagia, Denies excessive flatus, Denies early satiety, Reports heartburn, Denies nausea, Denies odynophagia, Denies vomiting and Denies hematemesis Musc Reports no additional complaints and Reports myalgias Skin/Breast Denies pruritus, Denies lesions, Denies rash and Denies jaundice Neuro Reports Normal hearing present and Denies Abnormal speech present Endo Denies fatigue Aller/Immun Denies throat swelling, Denies tongue swelling and Reports wheezing Physical Exam Vital Signs: Last Vital Signs Pulse 73 10/17/24 14:05 BP 120/60 10/17/24 14:05 Pulse Ox 96 10/17/24 14:05 Oxygen Delivery Method Room Air 10/17/24 14:05 BMI result Body Mass Index 41.4 Const Orientation/consciousness: patient oriented x3 HEENT Head: Yes normocephalic Neck Neck: Yes supple Thyroid: Thyroid normal Lymphatic: no lymphadenopathy noted Chest Chest palpation & inspection: normal inspection of the chest Resp Effort & Inspection: normal respiratory effort Auscultation: diminished lung sounds Cardio Rate: regular rate Rhythm: regular rhythm Heart sounds: S1 normal heart sound present and S2 normal heart sound present GI Palpation (GI): Soft to palpation Skin General skin exam: no rashes or lesions noted Neuro General: patient oriented x3, gait normal and no focal motor deficits Cranial nerves: Yes Normal hearing present Speech: No Abnormal speech present Extrem Other: sensation intact General: Yes normal to inspection, Yes full ROM and Yes capillary refill normal Assessment & Plan Assessment & Plan (1) Carcinoid tumor: Comment: (S/P RUL lobectomy at [facility] - 08/2016) Code(s): D3A.00 - Benign carcinoid tumor of unspecified site Category: Medical Qualifiers: Carcinoid tumor location: lung Carcinoid tumor malignancy status: malignant Qualified Code(s): C7A.090 - Malignant carcinoid tumor of the bronchus and lung (2) Post-thoracotomy pain syndrome: Code(s): G89.12 - Acute post-thoracotomy pain Category: Medical (3) Pulmonary nodules: Comment: Likely tumorlets Code(s): R91.8 - Other nonspecific abnormal finding of lung field Category: Medical (4) Obstructive sleep apnea: Code(s): G47.33 - Obstructive sleep apnea (adult) (pediatric) Category: Medical (5) Chronic bronchitis: Code(s): J42 - Unspecified chronic bronchitis Category: Medical Qualifiers: Chronic bronchitis type: mucopurulent Qualified Code(s): J41.1 - Mucopurulent chronic bronchitis (6) Gallstones: Code(s): K80.20 - Calculus of gallbladder without cholecystitis without obstruction Category: Medical Plan continue Flovent continue Stiolto daily SANGITA as needed nebulizer as needed Claritin continue Singulair stop Azithromycin MWF and stop stop Daliresp 500mcg daily start Ahtuvayre CXR Requesting CT chest for the Fall continue APAP usage, requesting F40 Fit to mask F/U 3-4 months Orders: Orders CT chest wo IV con 12/11/24 C7A.090 - Malignant carcinoid tumor of the bronchus and lung Coding Level of Care Code Est Pt Level 4 (60608) Complex EM visit Add On G2211 Diagnoses 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 Carcinoid tumor location: lung Carcinoid tumor malignancy status: malignant Post-thoracotomy pain syndrome G89.12 Pulmonary nodules R91.8 Obstructive sleep apnea G47.33 Mucopurulent chronic bronchitis J41.1 Chronic bronchitis type: mucopurulent Gallstones K80.20 Time Spent (min) 17
[2024-10-17 14:05] VITALS: BP 120/60; PULSE 73; O2SAT 96; BMI 41.4
--- OUTSIDE RECORDS SUMMARY | 2024-10-17 14:44 | XMS_ITS | Patient Health Record ---
Author Organization [facility] Address [address] [place] [address] Care Team Providers Care Medical Language Specialist Name Role Phone Juventino CHOPRA [place] Primary Care Provider Jeffrey Gerard [phone] Reason For Referral No Information Medications Medication [...] Status Risk Notes Problem Blood in stool (335389174) Blood in stool (578.1) Active confirmed Problem Constipation (35699809) Constipation (564.00) Active confirmed Problem Gastroesophageal reflux disease (680710201) GERD (gastroesophage al reflux disease) (530.81) Active confirmed Plan Of Treatment Future Test Test Name Order Date COLONOSCOPY 11/14/2013 Insurance Providers Payer Name Payer Address Payer Phone Subscriber Number Group Number Insured Name Patient Relationship to Insured Coverage Start Date Coverage End Date [facility] [facility] [facility] [address] [place] [phone] [id number] PATO HAYNES Self - patient is the insured Medical (General) History Medical History History ICD Code NIDDM Asthma Denies AR,CVA,renal disease EGD in 10/[address] RobledoKhmnkh-wux-wozngq gastric bx-neg H.pylori HTN Had a sleep study in 10/2013-awaiting res ults Neg GB U/S in 09/2013 Depression Hyperlipidemia Surgical History Surgery Date(Month/Year) tubal ligation ear surgery
--- OUTSIDE RECORDS SUMMARY | 2024-10-17 14:44 | XMS_ITS | Clinical Summary ---
Author Organization [facility] Address [address] [place] [id number] Phone Care Team Providers Care Quality Assurance Lead Name Role Phone Leroy Sanchez MD Primary [...] lower extremities 021 Carcinoid tumor of lung ([facility] V28) 10/06/2016 Assessment & Plan (02/21/2024 10:55 [...] being seen in a pain clinic at [place]. Plan from our standpoint will be for a 1 year follow-up CT scan of the chest and a visit in this office after that. All questions were answered. This visit was done through the video ssrs developer services. Chronic obstructive pulmonar y disease ([facility] V24, [facility] V28) 09/29/2016 Obstructive sleep apnea syndrome 09/29/2016 Overview (12/23/2023): [facility] Home Polysomnogram: Date 05/17/2017; AHI 6, Unclassified apneas 0; Obstructive apneas 0; Central apneas 0; Mixed apneas 0; hypopneas 37; average oxygen saturation 94% (lowest 82% without saturations <88% for 5% or more of study) - Obstructive Sleep Apnea - mild; all hypopneas; no sleep related hypoventilation by 2018 home polysomnogram. Depression 04/04/2012 DM2 (diabetes mellitus, type 2) ([facility] V24, [facility] V28) 04/04/2012 Hyperlipidemia with target LDL less [...] < 70 DM2 (diabetes mellitus, type 2) ([facility] V24, [facility] V28) 04/04/2012 DX:DM2 (diabetes mellitus, t ype 2) ([facility]) Lumbar disc disease 04/04/2012 DX:Lumbar di sc disease Depression 04/04/2012 DX:Depression Anxiety 04/04/2012 DX:Anxiety Obesity 04/04/2012 DX:Obesity LBBB (left bundle branch block) 04/04/2012 DX:LBBB (left bundle branch block) Emphysema lung ([facility] [place] [facility] [place] DX:Emphysema lung (HCC) Fibromyalgia DX:Fibromyalgia Arthritis [...] Procedure Name Priority Date/Time Associated Diagnosis Comments [facility] SCREENING [facility]IGITAL Routine 06/16/2023 11:59 AM EDT Encounter for screening mammogram for malignant neoplasm of breast from Last 3 Months or Most Recently Relevant to Health Maintenance Results * [facility] SCREENING [facility]IGITAL (06/16/2023 11:59 AM EDT) Anatomical Region Laterality Modality Mammography 06/16/2023 10:3 6 AM EDT Narrative 06/16/2023 11:59 AM EDT [facility] Diagnostic Imaging Department [address] [place] [address] Patient: PATO SAHU I /Age/Sex: 1955 - 67 - F Unit#: [id number] Location/Status: SPDIMAM/REG CLI Mnemonic/Ordering Site: [facility] Ordering Physician: LEROY SANCHEZ MD [facility] Screening Digital - 06/16/23 - 1106 Report Status:Signed EXAM: [facility] Screening Digital EXAM DATE AND TIME: 06/16/2023 11:07 AM HISTORY: Annual screening COMPARISON: Multiple exams dating back to 2016 TECHNIQUE: Bilateral digital breast tomosynthesis was performed in the CC and MLO projections. Computer aided detection with [employer] 3D 3.1 was employed. TISSUE DENSITY: b. [...] Procedure Note Wally Moeller MD - 11/01/2023 [facility] Diagnostic Imaging Department [address] [place] [id number] Patient: PATO SAHU Nikki /Age/Sex: 1955 - 67 - F Unit#: [id number] Location/Status: SPDIMAM/REG CLI Mnemonic/Ordering Site: [facility] Ordering Physician: LEROY SANCHEZ MD [facility] Screening Digital - 06/16/23 - 1106 Report Status:Signed EXAM: [facility] Screening Digital EXAM DATE AND TIME: 06/16/2023 11:07 AM HISTORY: Annual screening COMPARISON: Multiple exams dating back to 2016 TECHNIQUE: Bilateral digital breast tomosynthesis was performed in the CCand MLO projections. Computer aided detection with [employer] 3D 3.1was employed. TISSUE DENSITY: b. There [...] MEDICARE ADVANTAGE [place]ICAID - [place] Care Teams Quality Assurance Lead Relationship Specialty Start Date End Date Leroy Sanchez MD [address] [place] [address] [address] [place] PCP - General Internal Medicine 11/27/11
== END 2024-10-17 14:35 | disposition home or self-care (01) ==
LOC: HO.HPS 14:02
PROVIDERS: PCP Internal Medicine; Visit Provider Hospitalist
DX: C7A.090 Malignant carcinoid tumor of the bronchus and lung (principal); G89.12 Acute post-thoracotomy pain; R91.8 Other nonspecific abnormal finding of lung field; G47.33 Obstructive sleep apnea (adult) (pediatric); J41.1 Mucopurulent chronic bronchitis; K80.20 Calculus of gallbladder without cholecystitis without obstruction
CPT/HCPCS: 99214; G2211

== ENCOUNTER → 2024-10-17 14:02 | Outpatient (BNVA) | payer MEDICARE, MEDICAID, SELFPAY | PROVIDERS: PCP Internal Medicine; Visit Provider Hospitalist | DX: C7A.090 Malignant carcinoid tumor of the bronchus and lung (principal); G89.12 Acute post-thoracotomy pain; R91.8 Other nonspecific abnormal finding of lung field; G47.33 Obstructive sleep apnea (adult) (pediatric); J41.1 Mucopurulent chronic bronchitis; K80.20 Calculus of gallbladder without cholecystitis without obstruction | CPT/HCPCS: 99212 ==

== ENCOUNTER 2024-10-30 13:42 | Outpatient (AMB) | payer MEDICARE, MEDICAID, SELFPAY ==
--- NOTE | 2024-10-30 13:44 | A.OFFVIS_ITS ---
Vital Signs 10/30/24 13:45 Height 5 ft 1 in Weight 224 lb 13.944 oz BMI 42.5 BP 118/68 Blood Pressure Location Rt brachial Position Sitting Pulse 82 Pulse Source Pulse Oximeter Pulse Oximetry (%) 97 Oxygen Delivery Method Room Air Intake Visit Reasons: T2DM Intake Note: Patient present today for Type 2 Diabetes Mellitus Last Diabetic eye exam: 09/2024 Last Podiatry Visit: Doesn't have one Random Glucose: 127 mg/dL Most Recent HgA1C: 7.2% 09/04/24 Vegetable Specker Required: Yes Vegetable Specker Language: Complaint Investigations Officer Services: Vegetable Specker Offered & Declined Accompanied by: REAL ESTATE ACCOUNTANT Allergies penicillin G Allergy (Severe, Verified 10/17/24 14:08) Itching latex Allergy (Intermediate, Verified 10/17/24 14:08) Itching nitrofurantoin Allergy (Intermediate, Verified 10/17/24 14:08) itching and redness (in the legs) Medication List - Last Reconciled 10/30/24 by Miriam Nix PA-C [ADULT BRIEFS (size XL) As directed] [ADULT PULL-UPS (size XL) As directed] albuterol sulfate 2.5 mg continuous nebulization Q4-6H PRN albuterol sulfate 90 mcg/actuation 2 puffs inhalation QID PRN alcohol swabs 1 pad topical TID amitriptyline 25 mg PO BEDTIME aspirin 81 mg PO DAILY 90 days atorvastatin 40 mg PO DAILY azithromycin 250 mg PO DAILY bisacodyl (Dulcolax (bisacodyl)) 10 mg (2 x 5 mg) PO BEDTIME 2 days blood pressure monitor As directed blood sugar diagnostic (OneTouch Verio test strips) Three times a day blood-glucose meter Three times a day blood-glucose meter (OneTouch Verio Flex Meter) As directed trsts 4 X/day cholecalciferol (vitamin D3) 50 mcg PO DAILY 90 days clotrimazole-betamethasone 1-0.05 % 1 appl topical BID PRN 7 days cyanocobalamin (vitamin B-12) 1,000 mcg PO DAILY 90 days dexlansoprazole 60 mg PO DAILY dextromethorphan HBr 30 mg (2 x 15 mg) PO Q8H PRN 30 days diclofenac sodium 1% (Arthritis Pain (diclofenac)) 2 grams topical QID PRN dicyclomine 20 mg PO QID [DISPOSABLE WIPES As directed] [DISPOSABLE WIPES As directed] doxycycline hyclate 100 mg PO BID 10 days famotidine 40 mg PO BEDTIME 15 days flash glucose scanning reader ([employer]yle Mary Ann 2 Forreston) As directed flash glucose sensor (AzulStarStyle Mary Ann 2 Sensor kit) As directed change every 14 days fluticasone propionate 220 mcg/actuation (Flovent HFA) 1 puff PO BID fluticasone propionate 50 mcg/actuation 2 sprays intranasal DAILY 30 days [FOUR-PRONGED CANE As directed] furosemide 20 mg PO DAILY glucose 12 grams (3 x 4 gram) PO Q15M hydrochlorothiazide 25 mg PO DAILY 90 days hydrocortisone 2.5% 1 appl topical BID PRN hydrocortisone 2.5% (Proctosol HC) 1 appl MN BID ibuprofen 800 mg PO TID PRN ipratropium-albuterol 0.5 mg-3 mg(2.5 mg base)/3 mL 3 mL inhalation QID PRN lancets (OneTouch Delica Plus Lancet) As directed-tests 4 X/day lidocaine 5% (Lidoderm) 1 patch topical DAILY 30 days [LIGHTWEIGHT WALKER WITH SEAT walker with seat] linaclotide (Linzess) 72 mcg PO QAM loratadine 10 mg PO DAILY PRN 90 days lorazepam 1 mg PO BID-TID PRN 30 days memantine 10 mg PO BID metformin 500 mg PO DAILY metoclopramide HCl (Reglan) 5 mg PO .tidachs metoprolol succinate ER 50 mg PO DAILY metronidazole 500 mg PO BID 7 days montelukast 10 mg PO BEDTIME nebulizers As directed nystatin 1 appl topical TID pregabalin 200 mg PO Q8H 30 days psyllium husk (Metamucil) 1 tbsp PO BID roflumilast (Daliresp) 500 mcg PO DAILY 30 days [ROLLATOR with SEAT As directed] sertraline 50 mg PO DAILY sertraline mg PO Shower Chair As directed sodium,potassium,mag sulfates 17.5-3.13-1.6 gram (Suprep Bowel Prep Kit) 480 mL orally; FOR COLONOSCOPY PREP tiotropium-olodaterol 2.5-2.5 mcg/actuation (Stiolto Respimat) 2 puffs inhal ation DAILY tirzepatide (Mounjaro) 5 mg (0.5 mL) subcut QWEEK tizanidine 4 mg PO TID PRN tramadol 50 mg PO TID PRN 30 days umeclidinium-vilanterol 62.5-25 mcg/actuation (Anoro Ellipta) 1 inh inhalation DAILY valacyclovir 500 mg PO BID valsartan 320 mg PO DAILY HPI HPI T2DM: Details: Patient is 69 yo female with DM type 2 diagnosed around 2014, who presents for management her diabetes. Past medical history:DM2, HTN, HLD, COPD, ILDEFONSO, gastroparesis. Vegetable Specker: daughter in law is here today to help Endo: Her last A1c was 7.2. She is currently on Mounjaro 2.5 mg weekly and metformin 500 mg daily She was on Levemir in the past but stopped this because she felt like she was getting hypoglycemic. She did not tolerate ozempic, Trulicity she felt nauseous with -Continuous glucose monitoring: States that she needs a refill on her sensors and has not been using this recently. She does not like finger sticking. No recent low blood sugars. -Eye exam: IDD October 2023, scheduled -requests referral today to Podiatry CV: Blood pressure today in the office is 118/68. She is currently on hydrochlorothiazide 25 mg, metoprolol 50 mg, and valsartan 320 mg. Her cholesterol is controlled with atorvastatin 40 mg. Her last LDL was 67. [facility] Medical History Vulvar itching Stress incontinence Medicare annual wellness visit, subsequent Otitis media of right ear Sore throat Upper respiratory tract infection URI, acute Frequent fecal incontinence Stool incontinence Right sided abdominal pain Frozen shoulder Osteoarthritis Chest pain Calcific tendinitis of left shoulder Weakness of left upper extremity Weakness of both lower extremities Joint pain in fingers of both hands Joint pain in both hands Bilateral knee pain Vitamin B12 deficiency Bilateral ankle pain Rash Right foot pain Medicare annual wellness visit, subsequent Cervical cancer screening Bronchopneumonia Chronic low back pain Bilateral foot pain Bilateral hip pain Annual physical exam Hyperlipidemia LDL goal <70 Bilateral hip pain Fibromyalgia Chronic bronchitis Vitamin D deficiency Post-thoracotomy pain syndrome COPD (chronic obstructive pulmonary disease) Depression Anxiety Type 2 diabetes mellitus with diabetic polyneuropathy Pulmonary nodules Allergic rhinitis GERD (gastroesophageal reflux disease) Morbid obesity with BMI of 40.0-44.9, adult Asthma Obstructive sleep apnea Lumbar degenerative disc disease Carcinoid tumor Coronary artery disease Benign essential hypertension Type 2 diabetes mellitus with hyperglycemia, with long-term current use of insulin Surgical History History of rectal sphincterotomy (~11/2013) History of colonoscopy (~12/2013) History of tubal ligation History of lung biopsy (~07/2016) History of esophagogastroduodenoscopy (EGD) (~10/2011) History of lobectomy of lung (~08/2016) History of cardiac cath (~07/2018) Family History Father Stroke Hypertension Diabetes Mother Diabetes Hypertension Other Arthritis Lupus Social History Household Members: Spouse Housing: Apartment Alcohol intake: never Patient Tobacco Use Status: Former Tobacco user Tobacco use type: Cigarette e-Cigarette/Vaping Use: Never Used Second Hand Smoke Exposure: Yes service: No Current occupational status: disabled Cognitive needs: No Hearing needs: No Vision needs: Yes Physical Exam Const Orientation/consciousness: patient oriented x3 HEENT Ears: hearing grossly normal bilaterally Neck Neck: Yes no lymphadenopathy Thyroid: Thyroid normal Carotids: no bruits Lymphatic: no lymphadenopathy noted Resp Auscultation: clear to auscultation bilaterally Cardio Rate: regular rate Rhythm: regular rhythm Heart sounds: S1 normal heart sound present and S2 normal heart sound present Peripheral pulses: dorsalis pedis present Skin General skin exam: no rashes or lesions noted Neuro General: patient oriented x3, gait normal and no focal motor deficits Extrem Other: Monofilament sensation intact bilaterally. Vibratory sensation intact bilaterally. Skin intact. General: Yes normal to inspection Results Reviewed Results Reviewed: Laboratory Tests 09/04/24 09/04/24 10:04 11:10 Creatinine 0.67 Estimated GFR > 60 Glucose (Clinic) 139 H Hemoglobin A1c % 7.2 H Triglycerides 55 Cholesterol 124 LDL Cholesterol, Calc 69 HDL Cholesterol 44 Assessment & Plan Assessment & Plan (1) Controlled type 2 diabetes mellitus: Code(s): E11.9 - Type 2 diabetes mellitus without complications Category: Medical Plan: Increase Mounjaro 2 5 mg weekly Continue metformin 500 mg daily Freestyle Mary Ann 3+ sensors ordered. Did discuss this some insurance splints do not cover this if not taking insulin. She is aware. Follow up in 3 months. Advised to complete labs prior to appointment. (2) Morbid obesity with BMI of 40.0-44.9, adult: Code(s): E66.01 - Morbid (severe) obesity due to excess calories; Z68.41 - Body mass index [BMI] 40.0-44.9, adult Category: Medical Plan: Encouraged her to continue on diet and lifestyle modifications. I have increased Mounjaro. (3) Benign essential hypertension: Code(s): I10 - Essential (primary) hypertension Category: Medical Plan: WNL. Continue current regimen. Orders: Referrals Podiatry Referral E11.65 - Type 2 diabetes mellitus with hyperglycemia, Z79.4 - watermelon harvesting supervisor (current) use of insulin Medications: New tirzepatide (Mounjaro) 5 mg (0.5 mL) subcut QWEEK 2 mL 4RF blood-glucose sensor (FreeStyle Mary Ann 3 Plus Sensor device) Use daily As directed to monitor glucose 2 ea 5RF E08.29 - Diabetes mellitus due to underlying condition with other diabetic kidney complication, R80.9 - Proteinuria, unspecified, Z79.4 - watermelon harvesting supervisor (current) use of insulin blood-glucose,station engineer chief,cont (FreeStyle Mary Ann 3 Forreston) Use daily As directed to monitor blood glucose 1 ea 0RF E11.65 - Type 2 diabetes mellitus with hyperglycemia, Z79.4 - long-term (current) use of insulin Refilled metformin 500 mg PO DAILY 90 tabs 1RF E11.42 - Type 2 diabetes mellitus with d iabetic polyneuropathy Discontinued lancets (OneTouch Delica Lancets) Discontinued Reason: Doctor's Order Three times a day 100 ea 11RF E11.65 - Type 2 diabetes mellitus with hyperglycemia, Z79.4 - watermelon harvesting supervisor (current) use of insulin pen needle, diabetic (BD Ultra-Fine Cindy Pen Needle) Discontinued Reason: Duplicate twice daily 100 ea 12RF E11.42 - Type 2 diabetes mellitus with diabetic polyneuropathy lancets (FreeStyle Lancets) Discontinued Reason: Doctor's Order As directed three time a day 300 ea 3RF E11.42 - Type 2 diabetes mellitus with diabetic polyneuropathy pen needle, diabetic (Comfort EZ Pen [place]) Discontinued Reason: Doctor's Order As directed injects once a day 50 ea 5RF tirzepatide (Mounjaro) Discontinued Reason: Duplicate 2.5 mg (0.5 mL) subcut QWEEK 2 mL 1RF lancets (FreeStyle Lancets) Discontinued Reason: Doctor's Order As directed 100 ea 0RF E11.65 - Type 2 diabetes mellitus with hyperglycemia, Z79.4 - long-term (current) use of insulin blood sugar diagnostic (OneTouch Verio test strips) Discontinued Reason: Doctor's Order As directed tests 4X/day 100 ea 5RF Coding Level of Care Code Est Pt Level 4 (44626) Complex EM visit Add On G2211 Diagnoses Controlled type 2 diabetes mellitus E11.9 Morbid obesity with BMI of 40.0-44.9, adult E66.01; Z68.41 Benign essential hypertension I10
[2024-10-30 13:45] VITALS: BP 118/68; PULSE 82; O2SAT 97; BMI 42.5
[2024-10-30 13:56] LABS: Glucose, Whole Blood 127 mg/dL (60-115)
--- OUTSIDE RECORDS SUMMARY | 2024-10-30 14:35 | XMS_ITS | Clinical Summary ---
Author Organization [facility] Address [address] [place] [id number] Phone Care Team Providers Care Tile Roofer Name Role Phone Leroy Sanchez MD Primary Care Provider [phone] Allergies Active Allergy Reactions Criticality Noted Date [...] lower extremities 021 Carcinoid tumor of lung ([facility] V28) 10/06/2016 Assessment & Plan (02/21/2024 [...] being seen in a pain clinic at [place]. Plan from our standpoint will be for a 1 year follow-up CT scan of the chest and a visit in this office after that. All questions were answered. This visit was done through the video educational sign language interpreter services. Chronic obstructive pulmonar y disease ([facility], [facility] V28) 09/29/2016 Obstructive sleep apnea syndrome 09/29/2016 Overview (12/23/2023): [facility] Home Polysomnogram: Date 05/17/2017; AHI 6, Unclassified apneas 0; Obstructive apneas 0; Central apneas 0; Mixed apneas 0; hypopneas 37; average oxygen saturation 94% (lowest 82% without saturations <88% for 5% or more of study) - Obstructive Sleep Apnea - mild; all hypopneas; no sleep related hypoventilation by 2018 home polysomnogram. Depression 04/04/2012 DM2 (diabetes mellitus, type 2) ([facility] V24, [facility] V28) 04/04/2012 Hyperlipidemia with target [...] < 70 DM2 (diabetes mellitus, type 2) ([facility] V24, [facility] V28) 04/04/2012 DX:DM2 (diabetes mellitus, t ype 2) ([facility]) Lumbar disc disease 04/04/2012 DX:Lumbar di sc disease Depression 04/04/2012 DX:Depression Anxiety 04/04/2012 DX:Anxiety Obesity 04/04/2012 DX:Obesity LBBB (left bundle branch block) 04/04/2012 DX:LBBB (left bundle branch block) Emphysema lung ([facility], [facility] V28) DX:Emphysema lung (HCC) Fibromyalgia DX:Fibromyalgia Arthritis [...] Procedure Name Priority Date/Time Associated Diagnosis Comments [facility] SCREENING DIGITAL Routine 06/16/2023 11:59 AM EDT Encounter for screening mammogram for malignant neoplasm of breast from Last 3 Months or Most Recently Relevant to Health Maintenance Results * [facility] SCREENING DIGITAL (06/16/2023 11:59 AM EDT) Anatomical Region Laterality Modality Mammography 06/16/2023 10:3 6 AM EDT Narrative 06/16/2023 11:59 AM EDT [facility] Diagnostic Imaging Department [address] [place] [address] Patient: PATO SAHU I /Age/Sex: 1955 - 67 - F Unit#: [id number] Location/Status: SPDIMAM/REG CLI Mnemonic/Ordering Site: [facility] Ordering Physician: LEROY SANCHEZ MD [facility] Screening Digital - 06/16/23 - 1106 Report Status:Signed EXAM: [facility] Screening Digital EXAM DATE AND TIME: 06/16/2023 11:07 AM HISTORY: Annual screening COMPARISON: Multiple exams dating back to 2016 TECHNIQUE: Bilateral digital breast tomosynthesis was performed in the CC and MLO projections. Computer aided detection with [employer] 3D 3.1 was employed. TISSUE DENSITY: b. [...] Wally Moeller MD - 11/01/2023 [facility] Diagnostic Imaging Department [address] [place] [id number] Patient: PATO SAHU Nikki /Age/Sex: 1955 - 67 - F Unit#: [id number] Location/Status: SPDIMAM/REG CLI Mnemonic/Ordering Site: [facility] Ordering Physician: LEROY SANCHEZ MD [facility] Screening Digital - 06/16/23 - 1106 Report Status:Signed EXAM: [facility] Screening Digital EXAM DATE AND TIME: 06/16/2023 11:07 AM HISTORY: Annual screening COMPARISON: Multiple exams dating back to 2016 TECHNIQUE: Bilateral digital breast tomosynthesis was performed in the CCand MLO projections. Computer aided detection with [employer] 3D 3.1was employed. TISSUE DENSITY: b. There [...] MEDICARE ADVANTAGE [place] - [place] Care Teams Tile Roofer Relationship Specialty Start Date End Date Leroy Sanchez MD [address] [place] [address] [address] RAN Suarez PCP - General Internal Medicine 11/27/11
--- OUTSIDE RECORDS SUMMARY | 2024-10-30 14:36 | XMS_ITS | Patient Health Record ---
Author Organization [facility] Address [address] [place] [address] Care Team Providers Care Speech Therapist Early Intervention Name Role Phone Juventino CHOPRA [place] Primary Care Provider Jeffrey Gerard [phone] Reason For Referral No Information Medications Medication [...] Status Risk Notes Problem Blood in stool (839748723) Blood in stool (578.1) Active confirmed Problem Constipation (77065142) Constipation (564.00) Active confirmed Problem GERD (gastroesophagea l reflux disease) (530.81) Active confirmed Plan Of Treatment Future Test Test Name Order Date COLONOSCOPY 11/14/2013 Insurance Providers Payer Name Payer Address Payer Phone Subscriber Number Group Number Insured Name Patient Relationship to Insured Coverage Start Date Coverage End Date MEDICAID OF [facility] [address] [place] [phone] [id number] PATO HAYNES Self - patient is the insured Medical (General) History Medical History History ICD Code NIDDM Asthma Denies [place],CVA,renal disease EGD in 10/[address] RobledoYrxkss-xqc-kbjunk gastric bx-neg H.pylori HTN Had a sleep study in 10/2013-awaiting res ults Neg GB U/S in 09/2013 Depression Hyperlipidemia Surgical History Surgery Date(Month/Year) tubal ligation ear surgery
== END 2024-10-30 14:11 | disposition home or self-care (01) ==
LOC: HO.ENCR 13:43
PROVIDERS: PCP Internal Medicine; Visit Provider Physician Assistant
DX: E11.9 Type 2 diabetes mellitus without complications (principal); E66.01 Morbid (severe) obesity due to excess calories; Z68.41 Body mass index [BMI] 40.0-44.9, adult; I10 Essential (primary) hypertension

== ENCOUNTER → 2024-10-30 13:42 | Outpatient (BNVA) | payer MEDICARE, MEDICAID, SELFPAY | PROVIDERS: PCP Internal Medicine; Visit Provider Physician Assistant | DX: E11.9 Type 2 diabetes mellitus without complications (principal); E66.01 Morbid (severe) obesity due to excess calories; I10 Essential (primary) hypertension; Z68.41 Body mass index [BMI] 40.0-44.9, adult | CPT/HCPCS: 82947; 99212 ==

== ENCOUNTER 2024-11-07 15:58 | Outpatient (AMB) | payer MEDICARE, MEDICAID, SELFPAY ==
--- NOTE | 2024-11-07 16:06 | A.OFFVIS_ITS ---
Vital Signs 11/07/24 16:10 Height 5 ft 1 in Weight 102 lb 2 oz BMI 19.3 BP 132/74 Blood Pressure Location Lt brachial Position Sitting Pulse 71 Pulse Source Pulse Oximeter Pulse Oximetry (%) 100 Oxygen Delivery Method Room Air Intake Visit Reasons: shoulder pain Intake Note: Patient presents for follow upon shoulder pain and osteoarthritis of left knee. She feels the pain from the left knee up to the hip.She states the Tramadol and Ibuprofen not working for her. Phd Intern Required: No Phd Intern Services: Phd Intern Offered & Declined Phd Intern Name: Tamar. Allergies penicillin G Allergy (Severe, Verified 11/07/24 16:13) Itching latex Allergy (Intermediate, Verified 11/07/24 16:13) Itching nitrofurantoin Allergy (Intermediate, Verified 11/07/24 16:13) itching and redness (in the legs) HPI Comments Details: Patient is a 69 y.o. female with type II DM complicated by neuropathy, HTN c/b CAD and HLD here today for follow up of polyarticular OA, Frozen shoulder and fibromyalgia Interval History: Last seen 03/16/2024 with me - On pregabalin, tramadol, tizanidine, and diclofenac gel - received steroid injection in her left shoulder 08/2023 and noted improvement but still with limitations - most notable was left knee pain - received steroid injection to her left knee - Interested in viscosupplementation Today - On pregabalin, tramadol, tizanidine, and diclofenac gel (from PCP) - Left knee steroid injection helped - C/o of left knee pain and left shoulder pain - Did not go to PT, states they did not call her Rheumatology History: Patient established care 01/18/2023 for the management of her chronic joint pain. At that time she did not have any evidence of inflammatory synovitis or joint pain Her history and exam was consistent with degenerative joint disease and fibromyalgia Current Rheumatology Medications: Tizanidine 10mg PO TID PRN Tramadol 50mg PO TID PRN Pregabalin 200mg q8h Diclofenac 1% gel PFSH Medical History Vulvar itching Stress incontinence Medicare annual wellness visit, subsequent Otitis media of right ear Sore throat Upper respiratory tract infection URI, acute Frequent fecal incontinence Stool incontinence Right sided abdominal pain Frozen shoulder Osteoarthritis Chest pain Calcific tendinitis of left shoulder Weakness of left upper extremity Weakness of both lower extremities Joint pain in fingers of both hands Joint pain in both hands Bilateral knee pain Vitamin B12 deficiency Bilateral ankle pain Rash Right foot pain Medicare annual wellness visit, subsequent Cervical cancer screening Bronchopneumonia Chronic low back pain Bilateral foot pain Bilateral hip pain Annual physical exam Hyperlipidemia LDL goal <70 Bilateral hip pain Fibromyalgia Chronic bronchitis Vitamin D deficiency Post-thoracotomy pain syndrome COPD (chronic obstructive pulmonary disease) Depression Anxiety Type 2 diabetes mellitus with diabetic polyneuropathy Pulmonary nodules Allergic rhinitis GERD (gastroesophageal reflux disease) Morbid obesity with BMI of 40.0-44.9, adult Asthma Obstructive sleep apnea Lumbar degenerative disc disease Carcinoid tumor Coronary artery disease Benign essential hypertension Type 2 diabetes mellitus with hyperglycemia, with long-term current use of insulin Surgical History History of rectal sphincterotomy (~11/2013) History of colonoscopy (~12/2013) History of tubal ligation History of lung biopsy (~07/2016) History of esophagogastroduodenoscopy (EGD) (~10/2011) History of lobectomy of lung (~08/2016) History of cardiac cath (~07/2018) Family History Father Stroke Hypertension Diabetes Mother Diabetes Hypertension Other Arthritis Lupus Social History Household Members: Spouse Housing: Apartment Alcohol intake: never Patient Tobacco Use Status: Former Tobacco user Tobacco use type: Cigarette e-Cigarette/Vaping Use: Never Used Second Hand Smoke Exposure: Yes service: No Current occupational status: disabled Cognitive needs: No Hearing needs: No Vision needs: Yes Review of Systems Const Details: Review of Systems Constitutional: Denies fever, chills, weight loss ENT: Denies vision changes, eye pain or eye redness, dental caries, dry mouth GI: Denies nausea, vomiting, diarrhea, abdominal pain, change in BM Pulm: Denies SOB, ALVAREZ, hemoptysis, wheezing Cards: Denies chest pain, palpitations Skin: Denies Raynaud's, rash, nail changes, photosensitivity, GENERATION ENGINEERING TECHNOLOGIST: Denies headaches, weakness MSK: as per HPI All other systems reviewed and are unremarkable except noted above Physical Exam Exam Exam: Vital signs reviewed Physical Examination CONSTITUITIONAL Patient alert and cooperative. MSK Hands * Right Hand: Able to make a fist. No swelling or tenderness to palpation of the MCPs, PIPs or DIPs. * Left Hand: Able to make a fist. No swelling or tenderness to palpation of the MCPs, PIPs or DIPs. * Herbedens nodes noted bilaterally Wrists * Right Wrist: Full ROM to flexion and extension. No swelling or TTP * Left Wrist: Full ROM to flexion and extension. No swelling or TTP Elbows * Right Elbow: Full ROM. No swelling or TTP. No TTP of the medial epicondyle. No TTP of the lateral epicondyle * Left Elbow: Full ROM. No swelling or TTP. No TTP of the medial epicondyle. No TTP of the lateral epicondyle Shoulders * Right shoulder: Full ROM. No swelling noted. No TTP of the AC joint. No TTP of the subacromial bursa. No TTP of the posterior shoulder * Left shoulder: Decreased ROM. No swelling noted. No TTP of the AC joint. TTP of the subacromial bursa and TTP of the posterior shoulder Knees * Right knee: Full ROM. No swelling noted. No TTP of the knee joint line. No TTP of pes anserine bursa * Left knee: Decreased ROM. No swelling noted. TTP of the knee joint line. TTP of pes anserine bursa. Ankles * Right ankle: Good ankle dorsiflexion and plantar flexion. No swelling. No TTP of the ankle joint * Left ankle: Good ankle dorsiflexion and plantar flexion. No swelling. No TTP of the ankle joint Feet * Right foot: Negative squeeze test * Left foot: Negative squeeze test Tender points? * No tenderness to palpation of the bilateral trapezius, supraspinatus, anterior costochondral junctions, bilateral suboccipital muscle insertions Vital Signs: Last Vital Signs Pulse 71 11/07/24 16:10 BP 132/74 11/07/24 16:10 Pulse Ox 100 11/07/24 16:10 Oxygen Delivery Method Room Air 11/07/24 16:10 BMI result Body Mass Index 19.3 Office Procedures AMB Joint Injection/Aspiration Joint Injection/Aspiration Details: Procedure was explained to the patient and informed consent was obtained. ? Risks associated with the procedure were discussed with the patient including but not limited to bleeding, infection, drug reactions and reactions to the topical anesthetic. Patient made aware of signs to look out for infectious complications. The area of interest was identified and confirmed with patient. ?This was subsequently cleaned with chlorhexidine x 2. ? The area was then anesthetized using ethyl chloride spray. 40 mg Kenalog with 1 cc 1% lidocaine was injected without issue. ?Minimal to no bleeding. ?Patient tolerated procedure. Primary Site: left knee Prep: site was prepped using aseptic technique and ethochloride spray was applied Injected: 40 mg of, Kenalog, with 1 mL of and 1% plain lidocaine Approach Used: anterior Procedure: The patient tolerated the procedure well Coding 30406 - Large joint Procedure code (CPT) selection complete Office Meds lidocaine (PF) 10 mg/mL (1 %) injection solution Performing Provider: Melanie Dill MD Performing Location: [facility] [place] [facility] Administered by: Melanie Dill MD on 11/07/24 16:56 Dose Route Admin Location Dispensed Lot Number Expiration Date [facility] Shipping And Receiving 1 mL Infiltration left knee 2 mL [id number] 07/13/26 70988-621-89 [facility] Total Dispensed Waste 2 mL 50 % Kenalog 40 mg/mL suspension for injection Performing Provider: Melanie Dill MD Performing Location: [facility] – [place] [facility] Administered by: Melanie Dill MD on 11/07/24 16:56 Dose Route Admin Location Dispensed Lot Number Expiration Date [facility] Shipping And Receiving 40 mg intra-articular left knee 1 mL [id number] 10/13/26 7937-1149-44 [facility] Total Dispensed Waste 1 mL 0 % Results Reviewed Results Reviewed: XR Left knee/Left hip/Left shoulder 06/2023 FINDINGS: Left shoulder: Marked degenerative changes are present in the shoulder at the AC joint and at the inferior glenohumeral humeral joint. Bulky calcifications are present in the supraspinatus tendon. Degenerative changes are noted at the AC joint. No fractures or dislocations. Left hip: Single view pelvis and left hip films show degenerative changes in the visualized lumbosacral spine. Degenerative changes are seen in both hips, with slightly more joint space narrowing superiorly on the left. No fractures, dislocations or bony destructive lesions. Left knee: Marked biconvex departmental degenerative changes are seen with relative sparing of the lateral compartment. There is narrowing of the medial and patellofemoral compartments with sclerosis and osteophytes. No chondrocalcinosis is seen. No significant joint effusion is present. IMPRESSION: 1. No evidence of an acute osseous injury. 2. Degenerative changes in the left shoulder, left hip and left knee as described above. Assessment & Plan Assessment & Plan (1) Osteoarthritis of left knee: Code(s): M17.12 - Unilateral primary osteoarthritis, left knee Category: Medical Qualifiers: Osteoarthritis type: primary Qualified Code(s): M17.12 - Unilateral primary osteoarthritis, left knee Plan: #OA left knee Patient with polyarticular OA. Had improvement after steroid injection last time. S/p steroid injection today of the left knee today Plan - s/p left knee steroid injection - RTC 6 months (2) Frozen shoulder: Code(s): M75.00 - Adhesive capsulitis of unspecified shoulder Category: Medical Qualifiers: Laterality: left Qualified Code(s): M75.02 - Adhesive capsulitis of left shoulder Plan: #Left frozen shoulder Will find out why she did not get called for PT Did have subacromial bursitis today, but deferred injection Plan I spent 25 minutes reviewing the record and labs, seeing the patient, discussing the treatment plan and documenting in the medical record ? Orders: Orders AMB Joint Injection/Aspiration Today M17.12 - Unilateral primary osteoart hritis, left knee Coding Level of Care Code Est Pt Level 3 (44517) Diagnoses Primary osteoarthritis of left knee M17.12 Osteoarthritis type: primary Adhesive capsulitis of left shoulder M75.02 Laterality: left CPT Codes Coding - 86158 Large joint: 75334 - Large joint ([id number])
[2024-11-07 16:10] VITALS: BP 132/74; PULSE 71; O2SAT 100; BMI 19.3
--- OUTSIDE RECORDS SUMMARY | 2024-11-07 16:41 | XMS_ITS | Clinical Summary ---
Author Organization [facility] Address [address] [place] [phone] Phone Care Team Providers Care Corporate Legal Assistant Name Role Phone Leroy Sanchez MD Primary Care Provider [phone] Allergies Active Allergy Reactions Criticality Noted Date [...] lower extremities 021 Carcinoid tumor of lung ([facility] V28) 10/06/2016 Assessment & Plan (02/21/2024 [...] being seen in a pain clinic at [facility]. Plan from our standpoint will be for a 1 year follow-up CT scan of the chest and a visit in this office after that. All questions were answered. This visit was done through the video fuel yard operator services. Chronic obstructive pulmonar y disease ([facility] V24, [facility] V28) 09/29/2016 Obstructive sleep apnea syndrome 09/29/2016 Overview (12/23/2023): [facility] Home Polysomnogram: Date 05/17/2017; AHI 6, Unclassified apneas 0; Obstructive apneas 0; Central apneas 0; Mixed apneas 0; hypopneas 37; average oxygen saturation 94% (lowest 82% without saturations <88% for 5% or more of study) - Obstructive Sleep Apnea - mild; all hypopneas; no sleep related hypoventilation by 2018 home polysomnogram. Depression 04/04/2012 DM2 (diabetes mellitus, type 2) ([facility] V24, [facility] V28) 04/04/2012 Hyperlipidemia with target LDL [...] < 70 DM2 (diabetes mellitus, type 2) ([facility] V24, [facility] V28) 04/04/2012 DX:DM2 (diabetes mellitus, t ype 2) ([facility]) Lumbar disc disease 04/04/2012 DX:Lumbar di sc disease Depression 04/04/2012 DX:Depression Anxiety 04/04/2012 DX:Anxiety Obesity 04/04/2012 DX:Obesity LBBB (left bundle branch block) 04/04/2012 DX:LBBB (left bundle branch block) Emphysema lung [place] [place] [facility] [place] DX:Emphysema lung ([facility]) Fibromyalgia DX:Fibromyalgia Arthritis [...] Procedure Name Priority Date/Time Associated Diagnosis Comments [facility] SCREENING DIGITAL Routine 06/16/2023 11:59 AM EDT Encounter for screening mammogram for malignant neoplasm of breast from Last 3 Months or Most Recently Relevant to Health Maintenance Results * [facility] SCREENING DIGITAL (06/16/2023 11:59 AM EDT) Anatomical Region Laterality Modality Mammography 06/16/2023 10:3 6 AM EDT Narrative 06/16/2023 11:59 AM EDT [facility] Diagnostic Imaging Department [address] [place] [address] Patient: PATO SAHU I /Age/Sex: 1955 - 67 - F Unit#: [id number] Location/Status: SPDIMAM/REG CLI Mnemonic/Ordering Site: [facility] Ordering Physician: LREOY SANCHEZ MD [facility] Screening Digital - 06/16/23 - 1106 Report Status:Signed EXAM: [facility] Screening Digital EXAM DATE AND TIME: 06/16/2023 11:07 AM HISTORY: Annual screening COMPARISON: Multiple exams dating back to 2016 TECHNIQUE: Bilateral digital breast tomosynthesis was performed in the CC and MLO projections. Computer aided detection with StyroPower 3D 3.1 was employed. TISSUE DENSITY: b. [...] Procedure Note Wally Moeller MD - 11/01/2023 [facility] Diagnostic Imaging Department [address] [place] [id number] Patient: PATO SAHU Nikki /Age/Sex: 1955 - 67 - F Unit#: [id number] Location/Status: SPDIMAM/REG CLI Mnemonic/Ordering Site: [facility] Ordering Physician: LEROY SANCHEZ MD [facility] Screening Digital - 06/16/23 - 1106 Report Status:Signed EXAM: [facility] Screening Digital EXAM DATE AND TIME: 06/16/2023 11:07 AM HISTORY: Annual screening COMPARISON: Multiple exams dating back to 2016 TECHNIQUE: Bilateral digital breast tomosynthesis was performed in the CCand MLO projections. Computer aided detection with StyroPower 3D 3.1was employed. TISSUE DENSITY: b. There [...] MEDICARE ADVANTAGE [place]ICA[place] - [place] Care Teams Corporate Legal Assistant Relationship Specialty Start Date End Date Leroy Sanchez MD [address] [place] [address] [address] [place] Suarez PCP - General Internal Medicine 11/27/11
--- OUTSIDE RECORDS SUMMARY | 2024-11-07 16:41 | XMS_ITS | Patient Health Record ---
Author Organization [facility] Address [address] [place] [address] Care Team Providers Care Insurance Law Specialist Name Role Phone Juventino CHOPRA [place] Primary Care Provider Jeffrey Gerard [phone] Reason For Referral No Information Medications Medication [...] Status Risk Notes Problem Blood in stool (598677725) Blood in stool (578.1) Active confirmed Problem Constipation (96170500) Constipation (564.00) Active confirmed Problem Gastroesophageal reflux disease (461993984) GERD (gastroesophage al reflux disease) (530.81) Active confirmed Plan Of Treatment Future Test Test Name Order Date COLONOSCOPY 11/14/2013 Insurance Providers Payer Name Payer Address Payer Phone Subscriber Number Group Number Insured Name Patient Relationship to Insured Coverage Start Date Coverage End Date [facility] [address] [place] [phone] [id number] PATO HAYNES Self - patient is the insured Medical (General) History Medical History History ICD Code NIDDM Asthma Denies VT,CVA,renal disease EGD in 10/[address] RobledoTzcqzm-gjr-ghhruc gastric bx-neg H.pylori HTN Had a sleep study in 10/2013-awaiting res ults Neg GB U/S in 09/2013 Depression Hyperlipidemia Surgical History Surgery Date(Month/Year) tubal ligation ear surgery
== END 2024-11-07 16:58 | disposition home or self-care (01) ==
LOC: HO.RHES 15:59
PROVIDERS: PCP Internal Medicine; Visit Provider Student in an Organized Health Care Education/Training Program
DX: M17.12 Unilateral primary osteoarthritis, left knee (principal); M75.02 Adhesive capsulitis of left shoulder
CPT/HCPCS: 20610; 99213

== ENCOUNTER → 2024-11-07 15:58 | Outpatient (BNVA) | payer MEDICARE, MEDICAID, SELFPAY | PROVIDERS: PCP Internal Medicine; Visit Provider Student in an Organized Health Care Education/Training Program | DX: M17.12 Unilateral primary osteoarthritis, left knee (principal); M75.02 Adhesive capsulitis of left shoulder | CPT/HCPCS: 20610; 99212; J2003; J3300 ==

== ENCOUNTER 2024-11-21 10:53 | Outpatient (AMB) | payer MEDICARE, MEDICAID, SELFPAY ==
--- NOTE | 2024-11-21 10:55 | MHC.OFFVIS ---
Vital Signs 11/21/24 10:59 Height 5 ft 1 in Weight 221 lb BMI 41.8 Intake Visit Reasons: New Pt- Diabetic foot care Intake Note: Radha is a 69 year old female who resents today as a new patient for an evaluation for Bilateral Diabetic foot care. She mentions having tinging and numbness sensation in her feet as well as pressure .Patient reports having pain throughout the entire foot. Allergies penicillin G Allergy (Severe, Verified 11/21/24 10:59) Itching latex Allergy (Intermediate, Verified 11/21/24 10:59) Itching nitrofurantoin Allergy (Intermediate, Verified 11/21/24 10:59) itching and redness (in the legs) HPI HPI New Pt- Diabetic foot care: Details: 69-year-old female past medical history of type 2 diabetes mellitus, HTN, CAD, occurred, vitamin B12 deficiency, lumbar radiculopathy, presents to the clinic for initial diabetic foot evaluation. Patient states that she is to see different podiatrists in the past however they and recently. She notes chronic callus formations to her feet which cause her pain. She also complains of discoloration to her feet when she is walking. She recently has been experiencing pain to her right heel. 09/04/2024 hemoglobin A1c 7.2%. [facility] Medical History Vulvar itching Stress incontinence Medicare annual wellness visit, subsequent Otitis media of right ear Sore throat Upper respiratory tract infection URI, acute Frequent fecal incontinence Stool incontinence Right sided abdominal pain Frozen shoulder Osteoarthritis Chest pain Calcific tendinitis of left shoulder Weakness of left upper extremity Weakness of both lower extremities Joint pain in fingers of both hands Joint pain in both hands Bilateral knee pain Vitamin B12 deficiency Bilateral ankle pain Rash Right foot pain Medicare annual wellness visit, subsequent Cervical cancer screening Bronchopneumonia Chronic low back pain Bilateral foot pain Bilateral hip pain Annual physical exam Hyperlipidemia LDL goal <70 Bilateral hip pain Fibromyalgia Chronic bronchitis Vitamin D deficiency Post-thoracotomy pain syndrome COPD (chronic obstructive pulmonary disease) Depression Anxiety Type 2 diabetes mellitus with diabetic polyneuropathy Pulmonary nodules Allergic rhinitis GERD (gastroesophageal reflux disease) Morbid obesity with BMI of 40.0-44.9, adult Asthma Obstructive sleep apnea Lumbar degenerative disc disease Carcinoid tumor Coronary artery disease Benign essential hypertension Type 2 diabetes mellitus with hyperglycemia, with long-term current use of insulin Surgical History History of rectal sphincterotomy (~11/2013) History of colonoscopy (~12/2013) History of tubal ligation History of lung biopsy (~07/2016) History of esophagogastroduodenoscopy (EGD) (~10/2011) History of lobectomy of lung (~08/2016) History of cardiac cath (~07/2018) Family History Father Stroke Hypertension Diabetes Mother Diabetes Hypertension Other Arthritis Lupus Social History Household Members: Spouse Housing: Apartment Alcohol intake: never Patient Tobacco Use Status: Former Tobacco user Tobacco use type: Cigarette e-Cigarette/Vaping Use: Never Used Second Hand Smoke Exposure: Yes service: No Current occupational status: disabled Cognitive needs: No Hearing needs: No Vision needs: Yes Review of Systems Const All systems reviewed & are unremarkable except as noted in HPI and below Physical Exam Vital Signs: BMI result Body Mass Index 41.8 Extrem Other: *Bilateral Lower Extremity Focused Diabetic Foot Exam Vascular: DP/PT 1/4, CFT<3s to digits, TG warm to cool, no pedal edema, pedal hair absent Derm: Skin: Thick hyperkeratotic lesions to the medial aspects of the hallux bilaterally and submet 5 bilaterally. Interdigital spaces: Clear, no maceration or fungal infection. Nails: No onychomycosis, paronychia, or ingrown nails. Neuro: Protective sensation grossly intact to bilateral lower extremities Msk: Mild tenderness on palpation along the plantar aspect of the calcaneus in the posterior aspect of the Achilles tendon insertion. Deformities: No evidence of hammertoes, bunions, Charcot changes, or other structural abnormalities. Muscle strength: 4+/5 in all muscle groups. Gait: Normal, no antalgic or steppage gait observed. Footwear Assessment: Shoes inspected; appropriate fit, no excessive wear, or foreign objects noted. Office Procedures AMB Debridement/Avulsion Podia 46945-Ulhejjhikyh of Callus (2-4) (Bilateral feet pinch calluses and submet 5) Procedure code (CPT) selection complete Results Reviewed Results Reviewed: Laboratory Tests 09/04/24 10:04 Hemoglobin A1c % 7.2 H Assessment & Plan Assessment & Plan (1) Type 2 diabetes mellitus with diabetic polyneuropathy: Code(s): E11.42 - Type 2 diabetes mellitus with diabetic polyneuropathy Category: Medical Qualifiers: Diabetes mellitus superintendent container terminal insulin use: with correction use Qualified Code(s): E11.42 - Type 2 diabetes mellitus with diabetic polyneuropathy; Z79.4 - parts counterman (current) use of insulin Plan: Risk Stratification: No current ulceration, infection, or pre-ulcerative lesion. Patient's toes are cooler to touch and she does complain of occasional discoloration. She is referred for an BEBETO PVR test. Patient is at low risk for diabetic foot complications at this time. Recommendations: Continue routine foot care and daily self-inspection. Recommend moisturizing daily. Recommend supportive proper fitting shoe-wear. The patient may require diabetic shoes in the future. Reinforced diabetic foot education. (2) Plantar fasciitis of right foot: Code(s): M72.2 - Plantar fascial fibromatosis Category: Medical Plan: Recommended range of motion and stretching exercises. Handout of exercises given. Recommended supportive sneakers and shoe wear. (3) Cyanosis of skin: Code(s): R23.0 - Cyanosis Category: Medical Plan: Referred for BEBETO PVR test. (4) Dry skin: Code(s): L85.3 - Xerosis cutis Category: Medical Plan: Rx ammonium lactate, to be applied daily. (5) [place] or callus: Code(s): L84 - Corns and callosities Category: Medical Plan Debrided hyperkeratotic lesions bilateral feet. Patient tolerated the procedure well with no complications. Orders: Orders US BEBETO complete Today E11.42 - Type 2 diabetes mellitus with diabetic polyneuropathy, R23.0 - Cyanosis, Z79.4 - parts counterman (current) use of insulin AMB Debridement/[facility] Today L84 - Corns and callosities, L85.3 - Xerosis cutis Medications: New ammonium lactate 12% Apply to feet daily 1 appl topical DAILY 140 grams 3RF L85.3 - Xerosis cutis Coding Level of Care Code New Pt Level 4 (37210) Diagnoses Type 2 diabetes mellitus with diabetic polyneuropathy, with long-term current use of insulin E11.42; Z79.4 Diabetes mellitus correction insulin use: with superintendent container terminal use Plantar fasciitis of right foot M72.2 Cyanosis of skin R23.0 Dry skin L85.3 [place] or callus L84 CPT Codes Skin Debridement - CPT: 98204-Extklrnriqa of Callus (2-4) ([id number]) Time Spent (min) 43
[2024-11-21 10:59] VITALS: BMI 41.8
--- OUTSIDE RECORDS SUMMARY | 2024-11-21 13:09 | XMS_ITS | Patient Health Record ---
Author Organization [facility] Address [address] [place] [address] Care Team Providers Care Sales Officer Name Role Phone Juventino CHOPRA [place] Primary Care Provider Jeffrey Gerard [phone] Reason For Referral No Information Medications Medication [...] Status Risk Notes Problem Blood in stool (920921313) Blood in stool (578.1) Active confirmed Problem Constipation (61876044) Constipation (564.00) Active confirmed Problem Gastroesophageal reflux disease (747313721) GERD (gastroesophage al reflux disease) (530.81) Active confirmed Plan Of Treatment Future Test Test Name Order Date COLONOSCOPY 11/14/2013 Insurance Providers Payer Name Payer Address Payer Phone Subscriber Number Group Number Insured Name Patient Relationship to Insured Coverage Start Date Coverage End Date [facility] [address] [place] [phone] [id number] PATO HAYNES Self - patient is the insured Medical (General) History Medical History History ICD Code NIDDM Asthma Denies [place],CVA,renal disease EGD in 10/[address] RobledoJljdyq-dww-yjvpzh gastric bx-neg H.pylori HTN Had a sleep study in 10/2013-awaiting res ults Neg GB U/S in 09/2013 Depression Hyperlipidemia Surgical History Surgery Date(Month/Year) tubal ligation ear surgery
--- OUTSIDE RECORDS SUMMARY | 2024-11-21 13:09 | XMS_ITS | Clinical Summary ---
Author Organization 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 Plan from our standpoint will be for a 1 year follow-up CT scan of the chest and a visit in this office after that. All questions were answered. This visit was done through the video medication tech services. Chronic obstructive pulmonar y disease ([facility] V24, [facility] V28) 09/29/2016 Obstructive sleep apnea syndrome 09/29/2016 Overview (12/23/2023): [facility] Home Polysomnogram: Date 05/17/2017; AHI 6, Unclassified apneas 0; Obstructive apneas 0; Central apneas 0; Mixed apneas 0; hypopneas 37; average oxygen saturation 94% (lowest 82% without saturations <88% for 5% or more of study) - Obstructive Sleep Apnea - mild; all hypopneas; no sleep related hypoventilation by 2018 home polysomnogram. Depression 04/04/2012 DM2 (diabetes mellitus, type 2) ([facility] V24, [facility] V28) 04/04/2012 Hyperlipidemia with target LDL [...] < 70 DM2 (diabetes mellitus, type 2) ([facility] V24, [facility] V28) 04/04/2012 DX:DM2 (diabetes mellitus, t ype 2) ([facility]) Lumbar disc disease 04/04/2012 DX:Lumbar di sc disease Depression 04/04/2012 DX:Depression Anxiety 04/04/2012 DX:Anxiety Obesity 04/04/2012 DX:Obesity LBBB (left bundle branch block) 04/04/2012 DX:LBBB (left bundle branch block) Emphysema lung ([facility] V24, [facility] V28) DX:Emphysema lung (HCC) Fibromyalgia DX:Fibromyalgia Arthritis [...] Name Priority Date/Time Associated Diagnosis Comments [facility] SCREENING DIGITAL Routine 06/16/2023 11:59 AM EDT Encounter for screening mammogram for malignant neoplasm of breast from Last 3 Months or Most Recently Relevant to Health Maintenance Results * [facility] SCREENING [facility] (06/16/2023 11:59 AM EDT) Anatomical Region Laterality Modality Mammography 06/16/2023 10:3 6 AM EDT Narrative 06/16/2023 11:59 AM EDT [facility] Diagnostic Imaging Department [address] [place] [address] Patient: PATO SAHU I /Age/Sex: 1955 - 67 - F Unit#: [id number] Location/Status: SPDIMAM/REG CLI Mnemonic/Ordering Site: [facility] Ordering Physician: LEROY SANCHEZ MD [facility] Screening Digital - 06/16/23 - 1106 Report Status:Signed EXAM: [facility] Screening Digital EXAM DATE AND TIME: 06/16/2023 11:07 AM HISTORY: Annual screening COMPARISON: Multiple exams dating back to 2016 TECHNIQUE: Bilateral digital breast tomosynthesis was performed in the CC and MLO projections. Computer aided detection with [employer] 3D 3.1 was employed. TISSUE DENSITY: b. [...] 11/01/2023 [facility] Diagnostic Imaging Department [address] [place] [id number] Patient: PATO SAHU Nikki /Age/Sex: 1955 - 67 - F Unit#: [id number] Location/Status: SPDIMAM/REG CLI Mnemonic/Ordering Site: [facility] Ordering Physician: LEROY SANCHEZ MD [facility] Screening Digital - 06/16/23 - 1106 Report Status:Signed EXAM: [facility] Screening Digital EXAM DATE AND TIME: 06/16/2023 11:07 AM HISTORY: Annual screening COMPARISON: Multiple exams dating back to 2016 TECHNIQUE: Bilateral digital breast tomosynthesis was performed in the CCand MLO projections. Computer aided detection with [employer] 3D 3.1was employed. TISSUE DENSITY: b. There [...] MEDICARE ADVANTAGE MEDICAID - [place] Care Teams Industrial Cafeteria Manager Relationship Specialty Start Date End Date Leroy Sanchez MD [address] [place] [address] [address] [place] PCP - General Internal Medicine 11/27/11
== END 2024-11-21 11:40 | disposition home or self-care (01) ==
LOC: HO.HPODS 10:54
PROVIDERS: PCP Internal Medicine; Visit Provider Student in an Organized Health Care Education/Training Program
DX: E11.42 Type 2 diabetes mellitus with diabetic polyneuropathy (principal); Z79.4 Long term (current) use of insulin; M72.2 Plantar fascial fibromatosis; R23.0 Cyanosis; L85.2 Keratosis punctata (palmaris et plantaris); L84 Corns and callosities
CPT/HCPCS: 11057; 99204

== ENCOUNTER → 2024-11-21 10:53 | Outpatient (BNVA) | payer MEDICARE, MEDICAID, SELFPAY | PROVIDERS: PCP Internal Medicine; Visit Provider Student in an Organized Health Care Education/Training Program | DX: E11.42 Type 2 diabetes mellitus with diabetic polyneuropathy (principal); M72.2 Plantar fascial fibromatosis; L85.3 Xerosis cutis; R23.0 Cyanosis; L84 Corns and callosities; Z79.4 Long term (current) use of insulin | CPT/HCPCS: 11057; 99202 ==

== ENCOUNTER 2024-11-22 08:00 | Outpatient (REF) | payer MEDICARE, MEDICAID, SELFPAY ==
--- OUTSIDE RECORDS SUMMARY | 2024-11-22 08:38 | XMS_ITS | Patient Health Record ---
Author Organization [facility] Address [address] [place] [address] Care Team Providers Care [employer] Team Member Name Role Phone Juventino CHOPRA [place] Primary Care Provider Jeffrey Gerard [phone] Reason For Referral No Information Medications Medication [...] Status Risk Notes Problem Blood in stool (015769465) Blood in stool (578.1) Active confirmed Problem Constipation (63297770) Constipation (564.00) Active confirmed Problem Gastroesophageal reflux disease (434184210) GERD (gastroesophage al reflux disease) (530.81) Active confirmed Plan Of Treatment Future Test Test Name Order Date COLONOSCOPY 11/14/2013 Insurance Providers Payer Name Payer Address Payer Phone Subscriber Number Group Number Insured Name Patient Relationship to Insured Coverage Start Date Coverage End Date [facility] [address] [place] [phone] [id number] PATO HAYNES Self - patient is the insured Medical (General) History Medical History History ICD Code NIDDM Asthma Denies [place],CVA,renal disease EGD in 10/[address] RobledoZxcsjz-irl-lmxnyb gastric bx-neg H.pylori HTN Had a sleep study in 10/2013-awaiting res ults Neg GB U/S in 09/2013 Depression Hyperlipidemia Surgical History Surgery Date(Month/Year) tubal ligation ear surgery
--- OUTSIDE RECORDS SUMMARY | 2024-11-22 08:38 | XMS_ITS | Clinical Summary ---
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 Plan from our standpoint will be for a 1 year follow-up CT scan of the chest and a visit in this office after that. All questions were answered. This visit was done through the video translator interpreter services. Chronic obstructive pulmonar y disease ([facility] V[facility], [facility] V28) 09/29/2016 Obstructive sleep apnea syndrome 09/29/2016 Overview (12/23/2023): [facility] Home Polysomnogram: Date 05/17/2017; AHI 6, Unclassified apneas 0; Obstructive apneas 0; Central apneas 0; Mixed apneas 0; hypopneas 37; average oxygen saturation 94% (lowest 82% without saturations <88% for 5% or more of study) - Obstructive Sleep Apnea - mild; all hypopneas; no sleep related hypoventilation by 2018 home polysomnogram. Depression 04/04/2012 DM2 (diabetes mellitus, type 2) ([facility] V24, [facility] V28) 04/04/2012 Hyperlipidemia with target LDL less [...] < 70 DM2 (diabetes mellitus, type 2) ([facility] V24, [facility] V28) 04/04/2012 DX:DM2 (diabetes mellitus, t ype 2) ([facility]) Lumbar disc disease 04/04/2012 DX:Lumbar di sc disease Depression 04/04/2012 DX:Depression Anxiety 04/04/2012 DX:Anxiety Obesity 04/04/2012 DX:Obesity LBBB (left bundle branch block) 04/04/2012 DX:LBBB (left bundle branch block) Emphysema lung ([facility], [facility] V28) DX:Emphysema lung (HCC) Fibromyalgia [...] Procedure Name Priority Date/Time Associated Diagnosis Comments [facility] SCREENING DIGITAL Routine 06/16/2023 11:59 AM EDT Encounter for screening mammogram for malignant neoplasm of breast from Last 3 Months or Most Recently Relevant to Health Maintenance Results * [facility] SCREEN[facility] (06/16/2023 11:59 AM EDT) Anatomical Region Laterality Modality Mammography 06/16/2023 10:3 6 AM EDT Narrative 06/16/2023 11:59 AM EDT [facility] Diagnostic Imaging Department [address] [place] [address] Patient: PATO SAHU I /Age/Sex: 1955 - 67 - F Unit#: [id number] Location/Status: SPDIMAM/REG CLI Mnemonic/Ordering Site: [facility] Ordering Physician: LEROY SANCHEZ MD [facility] Screening Digital - 06/16/23 - 1106 Report Status:Signed EXAM: [facility] Screening Digital EXAM DATE AND TIME: 06/16/2023 11:07 AM HISTORY: Annual screening COMPARISON: Multiple exams dating back to 2016 TECHNIQUE: Bilateral digital breast tomosynthesis was performed in the CC and MLO projections. Computer aided detection with [employer] 3D 3.1 was employed. TISSUE DENSITY: b. [...] Procedure Note Wally Moeller MD - 11/01/2023 [facility] Diagnostic Imaging Department [address] [place] [id number] Patient: PATO SAHU Nikki /Age/Sex: 1955 - 67 - F Unit#: [id number] Location/Status: SPDIMAM/REG CLI Mnemonic/Ordering Site: [facility] Ordering Physician: LEROY SANCHEZ MD [facility] Screening Digital - 06/16/23 - 1106 Report Status:Signed EXAM: [facility] Screening Digital EXAM DATE AND TIME: 06/16/2023 11:07 AM HISTORY: Annual screening COMPARISON: Multiple exams dating back to 2016 TECHNIQUE: Bilateral digital breast tomosynthesis was performed in the CCand MLO projections. Computer aided detection with [employer] 3D 3.1was employed. TISSUE DENSITY: b. There [...] MEDICARE ADVANTAGE [place]ID - [place] Care Teams Oracle Sql Developer Relationship Specialty Start Date End Date Leroy Sanchez MD [address] [place] [address] [address] [place] PCP - General Internal Medicine 11/27/11
[2024-11-22 08:55] LABS: Hematocrit 38.8 % (37.0-47.0); Hemoglobin 12.3 g/dl (12.0-16.0); Imm Gran Abs Auto 0.05 X10*3/uL (0.00-0.03); Imm Gran Pct Auto 0.4 % (0.0-0.4); Lymphocytes Absolute Auto 5.3 X10*3/uL (1.2-4.9); MANUAL DIFF FLAG SCAN; Mean Corpuscular HGB Conc 31.7 g/dl (31.0-35.0); Mean Corpuscular Hemoglobin 26.9 pg (27.0-33.0); Mean Corpuscular Volume 84.7 fL (80.0-98.0); NRBC Abs Auto 0.000 X10*3/uL (0.0-0.012); NRBC Pct Auto 0.0 /100WBC (0.0-0.2); Platelet Count 323 X10*3/uL (160-400); Red Blood Count 4.58 X10*6/uL (4.20-5.50); SCAN SMEAR FLAG 1; White Blood Count 11.3 X10*3/uL (4.8-10.8)
[2024-11-22 09:37] LABS: Hemoglobin A1C 191.8047 umol/L; Total Hemoglobin (HGBA1C) 3259.7009 umol/L
[2024-11-22 10:13] LABS: Alanine Aminotransferase 19 U/L (0-31); Albumin Level 4.2 g/dL (3.5-5.0); Alkaline Phosphatase 162 U/L (39-117); Anion Gap 13 (12-20); Aspartate Amino Transferase 46 U/L (5-31); Blood Urea Nitrogen 22 mg/dL (9-16); Calcium 9.2 mg/dL (8.4-10.2); Carbon Dioxide 30 mmol/L (22-29); Chloride 103 mmol/L (96-108); Cholesterol 141 mg/dL (<200); Estimated Glomerular Filt Rate > 60; HDL Cholesterol 48 mg/dL (>40); Potassium 4.3 mmol/L (3.3-5.1); Sodium 142 mmol/L (135-145); Total Protein 7.3 g/dL (6.5-8.0); Triglycerides 69 mg/dL (<150)
[2024-11-22 12:01] LABS: Appearance Urine Clear; Glucose Urine UA Negative (Negative); PH 6.0 (5.0-9.0); Specific Gravity - Urine 1.015 (1.005-1.025); UMIC TRIGGER UACC YES
[2024-11-22 12:14] LABS: UACC Culture Trigger YES
[2024-11-22 13:04] LABS: Microalbum/Creatinine Ratio Ur 7.6 ug/mg cr (<30)
== END 2024-11-22 08:01 | disposition home or self-care (01) ==
LOC: HO.LAB 08:00
PROVIDERS: Visit Provider Internal Medicine
DX: Z00.00 Encounter for general adult medical examination without abnormal findings (principal); C7A.090 Malignant carcinoid tumor of the bronchus and lung; I10 Essential (primary) hypertension; E11.42 Type 2 diabetes mellitus with diabetic polyneuropathy; I25.10 Atherosclerotic heart disease of native coronary artery without angina pectoris; J45.41 Moderate persistent asthma with (acute) exacerbation; J98.8 Other specified respiratory disorders; G47.33 Obstructive sleep apnea (adult) (pediatric); K21.9 Gastro-esophageal reflux disease without esophagitis; E53.8 Deficiency of other specified B group vitamins; M79.7 Fibromyalgia; E66.01 Morbid (severe) obesity due to excess calories; M51.360 Other intervertebral disc degeneration, lumbar region with discogenic back pain only; R41.89 Other symptoms and signs involving cognitive functions and awareness; M19.91 Primary osteoarthritis, unspecified site; E78.00 Pure hypercholesterolemia, unspecified; F33.9 Major depressive disorder, recurrent, unspecified; E55.9 Vitamin D deficiency, unspecified; D64.9 Anemia, unspecified; R30.0 Dysuria; F41.9 Anxiety disorder, unspecified; Z68.41 Body mass index [BMI] 40.0-44.9, adult; Z79.82 Long term (current) use of aspirin; Z79.4 Long term (current) use of insulin; Z79.899 Other long term (current) drug therapy
CPT/HCPCS: 36415; 80053; 80061; 81001; 81003; 82043; 82306; 82570; 83036; 84443; 85025; 87086; 96127; 99212

== ENCOUNTER 2024-11-22 10:12 | Outpatient (AMB) | payer MEDICARE, MEDICAID, SELFPAY ==
[2024-11-22 10:24] VITALS: BP 126/80; PULSE 68; O2SAT 96; BMI 41.5
--- NOTE | 2024-11-22 10:24 | AM.OFFVISMDC ---
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 Accompanied by: Self / Same As Patient Allergies penicillin G Allergy (Severe, Verified 11/22/24 11:03) Itching latex Allergy (Intermediate, Verified 11/22/24 11:03) Itching nitrofurantoin Allergy (Intermediate, Verified 11/22/24 11:03) itching and redness (in the legs) Medication List - Last Reconciled 11/22/24 by Leroy Jauregui MD [ADULT BRIEFS (size XL) As directed] [ADULT PULL-UPS (size XL) As directed] albuterol sulfate 2.5 mg continuous nebulization Q4-6H PRN albuterol sulfate 90 mcg/actuation 2 puffs inhalation QID PRN alcohol swabs 1 pad topical TID amitriptyline 25 mg PO BEDTIME amlodipine 5 mg PO DAILY ammonium lactate 12% 1 appl topical DAILY aspirin 81 mg PO DAILY 90 days atorvastatin 40 mg PO DAILY azithromycin 250 mg PO DAILY azithromycin take 500 mg today (day 1), then 250 mg for 4 days (days 2-5) PO bisacodyl (Dulcolax (bisacodyl)) 10 mg (2 x 5 mg) PO BEDTIME 2 days blood pressure monitor As directed blood sugar diagnostic (OneTouch Verio test strips) Three times a day blood-glucose meter Three times a day blood-glucose meter (OneTouch Verio Flex Meter) As directed trsts 4 X/day blood-glucose sensor (FreeStyle Mary Ann 3 Plus Sensor device) Use daily As directed to monitor glucose blood-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,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,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 (FreeStyle Mary Ann 3 [place]) Use daily As directed to monitor blood glucose cholecalciferol (vitamin D3) 50 mcg PO DAILY 90 days clotrimazole-betamethasone 1-0.05 % 1 appl topical BID PRN 7 days cyanocobalamin (vitamin B-12) 1,000 mcg PO DAILY 90 days dexlansoprazole 60 mg PO DAILY dextromethorphan HBr 30 mg (2 x 15 mg) PO Q8H PRN 30 days diclofenac sodium 1% (Arthritis Pain (diclofenac)) 2 grams topical QID PRN dicyclomine 20 mg PO QID [DISPOSABLE WIPES As directed] [DISPOSABLE WIPES As directed] doxycycline hyclate 100 mg PO BID 10 days famotidine 40 mg PO BEDTIME 15 days flash glucose scanning reader (oboxoStyle Mary Ann 2 [place]) As directed flash glucose sensor (FreeStyle Mary Ann 2 Sensor kit) As directed change every 14 days fluticasone propionate 220 mcg/actuation (Flovent HFA) 1 puff PO BID fluticasone propionate 50 mcg/actuation 2 sprays intranasal DAILY 30 days [FOUR-PRONGED CANE As directed] furosemide 20 mg PO DAILY glucose 12 grams (3 x 4 gram) PO Q15M hydrochlorothiazide 25 mg PO DAILY 90 days hydrocortisone 2.5% 1 appl topical BID PRN hydrocortisone 2.5% (Proctosol HC) 1 appl MO BID ibuprofen 800 mg PO TID PRN ipratropium-albuterol 0.5 mg-3 mg(2.5 mg base)/3 mL 3 mL inhalation QID PRN lancets (Tagboarduch Delica Plus Lancet) As directed-tests 4 X/day lidocaine 5% (Lidoderm) 1 patch topical DAILY 30 days [LIGHTWEIGHT WALKER WITH SEAT walker with seat] linaclotide (Linzess) 72 mcg PO QAM loratadine 10 mg PO DAILY PRN 90 days lorazepam 1 mg PO BID-TID PRN 30 days memantine 10 mg PO BID memantine (Namenda) 5 mg PO BID metformin 500 mg PO DAILY metoclopramide HCl (Reglan) 5 mg PO .tidachs metoprolol succinate ER 50 mg PO DAILY metronidazole 500 mg PO BID 7 days montelukast 10 mg PO BEDTIME nebulizers As directed nystatin 1 appl topical TID pregabalin 200 mg PO Q8H 30 days psyllium husk (Metamucil) 1 tbsp PO BID roflumilast (Daliresp) 500 mcg PO DAILY 30 days [ROLLATOR with SEAT As directed] sertraline 50 mg PO DAILY sertraline mg PO Shower Chair As directed sodium,potassium,mag sulfates 17.5-3.13-1.6 gram (Suprep Bowel Prep Kit) 480 mL orally; FOR COLONOSCOPY PREP tiotropium-olodaterol 2.5-2.5 mcg/actuation (Stiolto Respimat) 2 puffs inhalation DAILY tirzepatide (Mounjaro) 5 mg (0.5 mL) subcut QWEEK tizanidine 4 mg PO TID PRN tramadol 50 mg PO TID PRN 30 days umeclidinium-vilanterol 62.5-25 mcg/actuation (Anoro Ellipta) 1 inh inhalation DAILY valacyclovir 500 mg PO BID valsartan 320 mg PO DAILY Do you need a note to return to daycare/school/sports/work: No HPI V [id number] HPI Details Patient comes in today for her Medicare Annual Wellness Exam AND follow up visit She continues to complain of increased pain diffusely with multiple joint pains - she is currently on Pregabalin, Tramadol and Tizanidine for pain and she continues to follow up with pain management and rheumatology for these issues She is also now seeing endocrinology for management of her diabetes and her next appointment with them is in January 2025 Patient adds that she was seen by neurology (Dr. Rowell) and was started on Memantine for her memory issues She denies any headaches or dizziness Denies any chest pains but she has had a recurrent non-productive cough for over a week now - her cough sounds very deep and bronchial and she has been coughing repeatedly throughout her visit today States that she still has frequent ALVAREZ and she follows up with [facility] for her respiratory issues - states that her insurance recently denied one of the inhalers they initially prescibed for her No nausea/vomiting, no abdominal pain No change in bowel habits noted She had her follow up labs done yesterday - to discuss her results She is due for her annual mammogram and she has this scheduled for next month (December 2024) Her gynecology exam was last done at [facility] on 10/06/2024 She had her repeat colonoscopy done a couple of years ago in January [address] Palacio and was advised to get a repeat colonoscopy in 1 year due to poor prep but she has not gotten this done yet She was seen by GI for follow up a couple of months ago and they are setting her up for her repeat colonoscopy sometime soon She was seen by podiatry for her foot exam yesterday Chest CT done last year on 10/18/2023 at [facility] revealed what appears to be a growing or new right upper lobe pulmonary nodule measuring 6 mm in size (the largest nodule that she had there a year ago was only about 3 mm in size) She had a repeat CT scan done on 01/26/2024, also at [facility], to ensure that this does not progress any further - repeat scan showed stable pulmonary nodules and was otherwise negative IPPE/AWV: c/o of Annual Wellness Visit, subsequent visit. Medical / Social History Reviewed Past Medical History Yes . [place] of Care / Care Team list updated Yes . Surgical/Hospitalization History Yes . Current Medications (including OTC and supplements) Yes . Family History Yes . Tobacco Control form Yes . AUDIT-C (Alcohol use) form Yes . Illicit drug use in Social History Yes . Current diagnosis of depression? No Appropriate PHQ2/PHQ9 completed Yes . Data entered by Outbound Sales Specialist and reviewed by provider Home Safety Throw rugs? No Grab bars? No Raised toilet seats? No Working smoke detectors? Yes Working carbon monoxide detectors? Yes Data entered by Outbound Sales Specialist and reviewed by provider Activities of Daily Living (ADLs) Difficulty bathing or showering? Yes Difficulty dressing? No Difficulty using the toilet? No Difficulty getting in and out of bed? No Difficulty walking? Yes Receives help from another person with any of the above tasks? Yes Instrumental Activities of Daily Living (IADLs) Uses the telephone without help Gets to places out of walking distance with help Goes shopping for groceries with help Prepares own meals without help Does own minor home maintenance with help Does own laundry with help Does own housework with help Manages own money without help Currently takes medications? Yes Takes medication without help End-of-Life Planning Discussed advance directive Yes Advance directive on file Discussed wishes expressed in advance directive agreed to following patient's wishes Fall Risk: Fall History Have you had any falls with injury in the past year? No . Have you had two or more falls in the past year? No . Fall Risk Assessment: No falls in the past year . HRA filled out by the patient, reviewed by Provider and scanned. [facility] Medical History (Updated 11/22/24 @ 12:09 by Leroy Jauregui MD) Medicare annual wellness visit, subsequent Vulvar itching Stress incontinence Medicare annual wellness visit, subsequent Otitis media of right ear Sore throat Upper respiratory tract infection URI, acute Frequent fecal incontinence Stool incontinence Right sided abdominal pain Frozen shoulder Osteoarthritis Chest pain Calcific tendinitis of left shoulder Weakness of left upper extremity Weakness of both lower extremities Joint pain in fingers of both hands Joint pain in both hands Bilateral knee pain Vitamin B12 deficiency Bilateral ankle pain Rash Right foot pain Cervical cancer screening Bronchopneumonia Chronic low back pain Bilateral foot pain Bilateral hip pain Annual physical exam Hyperlipidemia LDL goal <70 Bilateral hip pain Fibromyalgia Chronic bronchitis Vitamin D deficiency Post-thoracotomy pain syndrome COPD (chronic obstructive pulmonary disease) Depression Anxiety Type 2 diabetes mellitus with diabetic polyneuropathy Pulmonary nodules Allergic rhinitis GERD (gastroesophageal reflux disease) Morbid obesity with BMI of 40.0-44.9, adult Asthma Obstructive sleep apnea Lumbar degenerative disc disease Carcinoid tumor Coronary artery disease Benign essential hypertension Type 2 diabetes mellitus with hyperglycemia, with long-term current use of insulin Surgical History History of rectal sphincterotomy (~11/2013) History of colonoscopy (~12/2013) History of tubal ligation History of lung biopsy (~07/2016) History of esophagogastroduodenoscopy (EGD) (~10/2011) History of lobectomy of lung (~08/2016) History of cardiac cath (~07/2018) Family History Father Stroke Hypertension Diabetes Mother Diabetes Hypertension Other Arthritis Lupus Social History Household Members: Spouse Housing: Apartment Alcohol intake: never Patient Tobacco Use Status: Former Tobacco user Tobacco use type: Cigarette e-Cigarette/Vaping Use: Never Used Second Hand Smoke Exposure: Yes service: No Current occupational status: disabled Cognitive needs: No Hearing needs: No Vision needs: Yes Questionnaire Medicare Wellness Checkup [age] What gender do you identify with?: female During the past 4 weeks, how much have you been bothered by emotional problems such as feeling anxious, depressed, irritable, sad or downhearted, and blue?: moderately During the past 4 weeks, has your physical & emotional health limited your social activities with family, friends, neighbors, or groups?: quite a bit During the past 4 weeks, how much bodily pain have you generally had?: severe pain During the past 4 weeks, was someone available to help you if you needed & wanted help?: yes, some During the past 4 weeks, what was the hardest physical activity you could do for at least 2 minutes?: very light Can you get to places out of walking distance without help? (For eg., can you travel alone on buses, taxis or drive your car?): Yes Can you go shopping for groceries or clothes without someone's help?: No Can you prepare your own meals?: No Can you do your housework without help?: No Because of any health problems, do you need the help of another person with your personal care needs such as eating, bathing, dressing or getting around the house?: Yes Can you handle your own money without help?: Yes During the past 4 weeks, how would you rate your health in general?: poor During the past 4 weeks how have things been going for you?: pretty well Are you having difficulties driving your car?: yes, often Do you always fasten your seat belt when you are in a car?: yes, sometimes During past 4 weeks, have you been bothered by the following: never: Sexual problems? and Trouble eating well?, sometimes: Falling or dizzy when standing up, Teeth or denture problems? and Problems using the telephone? and often: Tiredness or fatigue? Have you fallen 2 or more times in the past year?: Yes Are you afraid of falling?: Yes Are you a smoker?: no During the past 4 weeks, how many drinks of wine, beer, or other alcoholic beverages did you have?: no alcohol at all Do you exercise for about 20 minutes 3 or more times a week?: no, I usually do not exercise this much Have you been given information to help with the following?: yes: Keeping track of your medications? and no: Hazards in your house that might hurt you? How often do you have trouble taking medicines the way you have been told to take them?: I do not have to take medicine How confident are you that you can control & manage most of your health problems?: not very confident What is your race?: or origin or descent Mini Mental State Exam (MMSE) Orientation What is the (year) (season) (date) (day) (month)?: year, season, date, day and month Where are we (state) (county) (town or city) (hospital) (floor)?: state, county, town or city, hospital/clinic and floor Score Score: 10 Activity of Daily Living Bathing - sponge bath, tub bath or shower: receives help in bathing only one body part (such as back or leg) Dressing - getting clothes from closets & drawers, including inner/outer garments & fasteners.: gets clothes & gets completely dressed without help Toileting - going to the 'toilet room' for urine/bowel elimination & cleaning self/arranging clothes: goes to toilet room, cleans self, arranges clothes without help Transfer: moves in & out of bed or chair with help Continence: has occasional 'accidents' Feeding: feeds self without help Total Score: 0 Information obtained from: patient Using telephone: independent Traveling: needs assistance Shopping: needs assistance Preparing meals: needs assistance Housework: needs assistance Taking medicine: independent Managing money: independent PHQ-9 Over the last 2 weeks, how often have you been bothered by any of the following problems? 1. Little interest or pleasure in doing things: several days 2. Feeling down, depressed, or hopeless: more than half the days 3. Trouble falling or staying asleep, or sleeping too much: several days 4. Feeling tired or having little energy: several days 5. Poor appetite or overeating: several days 6. Feeling bad about yourself - or that you are a failure or have let yourself or your family down: several days 7. Trouble concentrating on things, such as reading the newspaper or watching television: several days 8. Moving or speaking so slowly that other people could have noticed. Or the opposite - being so fidgety or restless that you have been moving around a lot more than usual: several days 9. Thoughts that you would be better off or of hurting yourself in some way: not at all Total score: 9 Depression Screening Interpretation: Positive Depression Screening Follow-up: Existing condition and In treatment Depression Screening Done: Yes 55139 - PHQ-9 Billing: Yes Source: Developed by Drs. Marj Acosta, Vaibhav Pagan and colleagues, with an educational norm from [employer]. PHQ-2/PHQ-9 PHQ-2 Over the last 2 weeks, how often have you been bothered by any of the following problems? 1. Little interest or pleasure in doing things: several days 2. Feeling down, depressed, or hopeless: more than half the days Total score: 3 If score is 3 or greater, continue 3. Trouble falling or staying asleep, or sleeping too much: several days 4. Feeling tired or having little energy: several days 5. Poor appetite or overeating: several days 6. Feeling bad about yourself - or that you are a failure or have let yourself or your family down: several days 7. Trouble concentrating on things, such as reading the newspaper or watching television: several days 8. Moving or speaking so slowly that other people could have noticed. Or the opposite - being so fidgety or restless that you have been moving around a lot more than usual: several days 9. Thoughts that you would be better off or of hurting yourself in some way: not at all Total score: 9 0-4 None-Minimal, 5-9 Mild, 10-14 Moderate, 15-19 Moderately Severe, 20-27 Severe Source: Developed by Drs. Jeffrey Chavez, Marj Villatoro, Vaibhav Pagan and colleagues, with an educational norm from [employer]. Thrive Questionnaire Date Thrive assessed: 11/22/24 I am a: Patient What is your living situation today?: I have a steady place to live Within the past 12 months, did the food you bought not last and you didn't have the money to get more?: Sometimes True Within the past 12 months, did you worry whether your food would run out before you got money to buy more?: Sometimes True Do you have trouble paying for medicines?: Yes Do you have trouble getting transportation to medical appointments?: No Do you have trouble paying your heating and electricity bill?: No Do you have trouble taking care of your child, family member or friend?: No Do you have trouble with day-to-day activities such as bathing, preparing meals, shopping, managing finances, etc.?: No Are you currently unemployed and looking for a job?: No Are you interested in more education?: No Please select the resources that you would like help with: None Currently or been in a relationship where the following occur: I choose not to answer THRIVE Score: 2 EVELINE-7 AMB Questionnaire EVELINE-7 Date EVELINE - 7 assessed: 11/22/24 Feeling nervous, anxious, or on edge: 1 = Several days Not being able to stop or control worryin = Several days Worrying too much about different things: 1 = Several days Trouble relaxin = Several days Being so restless that it is hard to sit still: 1 = Several days Becoming easily annoyed or irritable: 1 = Several days Feeling afraid as if something awful might happen: 1 = Several days Total EVELINE-7 score (0-4 normal; 5-9 mild; 10-14 moderate; 15-21 severe): 7 Source: Developed by Drs. Jeffrey Chavez, Marj Villatoro, Vaibhav Pagan and colleagues, with an educational norm from [employer]. Review of Systems Const Denies chills, Reports difficulty sleeping, Reports fatigue, Denies fever(s) and Denies headache(s) ENT Denies dysphagia, Denies dizziness, Denies otalgia, Denies headache(s), Denies nasal congestion, Reports neck pain, Denies odynophagia and Denies sore throat Card Denies chest pain, Denies palpitations and Reports dyspnea on exertion (mild) Resp Reports chest congestion (mild), Reports cough (recurrent, non-productive), Denies excessive phlegm production, Reports dyspnea on exertion (mild) and Denies wheezing GI Denies abdominal pain, Denies constipation, Denies dysphagia, Denies heartburn, Reports fecal incontinence, Denies diarrhea, Denies nausea, Denies odynophagia and Denies vomiting Denies difficulty voiding, Denies nocturia, Denies dysuria, Reports urinary incontinence (at times) and Denies urinary urgency Musc Reports back pain (especially over the right lower back), Reports arthralgias (over the left shoulder, left hip and left knee), Reports neck pain and Reports numbness (in both feet, on and off) Skin/Breast Denies rash Neuro Denies dizziness, Denies headache(s), Reports numbness (in both feet, on and off) and Reports paresthesias (in both feet) Endo Reports fatigue and Denies palpitations Aller/Immun Denies wheezing Physical Exam Vital Signs: Last Vital Signs Pulse 68 11/22/24 10:24 BP 126/80 11/22/24 10:24 Pulse Ox 96 11/22/24 10:24 Oxygen Delivery Method Room Air 11/22/24 10:24 BMI result Body Mass Index 41.5 IPPE/AWV: Balance Romberg No . Tandem walk No . Walk and Turn No . Rise from sit to stand No . Vision Corrective lens No Vision screen pass Hearing Whisper test pass . Urinary incont. no. EKG Not clinically necessary. Const General: no acute distress and alert HEENT Ears: TM's normal bilaterally and EAC's normal Throat: Yes posterior oropharynx normal and Yes tonsils normal (no TP congestion noted) Neck Neck: Yes supple and No lymphadenopathy Thyroid: Thyroid normal Resp Auscultation: no rales, rhonchi ((+) scattered rhonchi) throughout and no wheezes Cardio Rate: regular rate Rhythm: regular rhythm Heart sounds: no murmurs GI Palpation (GI): Soft to palpation and nontender Auscultation: normal bowel sounds Back/Spine/Pelvis Thoracic/Lumbar Spine: lumbar spinal tenderness Skin Rashes: no rashes Extrem General: Yes no clubbing, cyanosis or edema Left upper extremity: wrist (increased tenderness - currently has a wrist splint/brace on) Right lower extremity: knee Details: tenderness Left lower extremity: knee Details: tenderness Results Reviewed Results Reviewed: Laboratory Tests 11/22/24 08:09 WBC 11.3 H Hgb 12.3 Hct 38.8 Plt Count 323 Sodium 142 Potassium 4.3 Creatinine 0.77 Estimated GFR > 60 Fasting Glucose 99 Hemoglobin A1c % 7.5 H Calcium 9.2 AST 46 H ALT 19 Triglycerides 69 Cholesterol 141 LDL Cholesterol, Calc 80 HDL Cholesterol 48 25-OH Vitamin D Total 44.9 TSH 3.06 Assessment & Plan Assessment & Plan (1) Medicare annual wellness visit, subsequent: Code(s): Z00.00 - Encounter for general adult medical examination without abnormal findings Plan: HRA form discussed and reviewed with patient - form will be scanned into patient's chart PARAS and Care Team list updated She is due for her annual mammogram and she has this scheduled for next month (December 2024) Her gynecology exam was last done at [facility] on 10/06/2024 She had her repeat colonoscopy done a couple of years ago in January [address] Palacio and was advised to get a repeat colonoscopy in 1 year due to poor prep but she has not gotten this done yet She was seen by GI for follow up a couple of months ago and they are setting her up for her repeat colonoscopy sometime soon (2) Type 2 diabetes mellitus with diabetic polyneuropathy: Code(s): E11.42 - Type 2 diabetes mellitus with diabetic polyneuropathy Qualifiers: Diabetes mellitus intermediate frame tender insulin use: with intermediate frame tender use Qualified Code(s): E11.42 - Type 2 diabetes mellitus with diabetic polyneuropathy; Z79.4 - senior living (current) use of insulin Plan: Her HgbA1c was most recently at 7.5% on her labs done yesterday (she was at 7.2% a few months ago) - goal is <7.0% Reinforced diabetic diet Continue Metformin 500 mg QD and Mounjaro 5 mg SQ once a week She was also on Lantus in the past but this was discontinued by endocrinology Patient was also on Repaglinide 0.5 mg 1 tablet before breakfast and 2 tablets before dinner in the past but she has not taken this in a while now Follow up with endocrinology as scheduled (3) Coronary artery disease: Code(s): I25.10 - Atherosclerotic heart disease of [place] coronary artery without angina pectoris Qualifiers: Coronary Disease-Associated Artery/Lesion type: [place] artery [place] vs. transplanted heart: [place] heart Associated angina: without angina Qualified Code(s): I25.10 - Atherosclerotic heart disease of [place] coronary artery without angina pectoris Plan: Cardiac cath done in 07/2018 revealed (+) very mild coronary disease Echocardiogram done with cardiology in November 2022 revealed normal LV systolic function with EF between 65 to 70%, normal diastolic function, normal left atrial size, normal RV systolic function, no evidence of aortic stenosis but (+) mild to moderate MR noted Continue aggressive risk factor reduction and low dose Aspirin 81 mg QD Follow up with cardiology as scheduled (4) Pure hypercholesterolemia: Code(s): E78.00 - Pure hypercholesterolemia, unspecified Plan: Results of her labs done yesterday reviewed and discussed with patient Reinforced low cholesterol diet Continue Atorvastatin 40 mg QD Will recheck her labs and fasting lipids in 4 months for follow up (5) Benign essential hypertension: Code(s): I10 - Essential (primary) hypertension Plan: Reinforced low sodium diet - goal is systolic BP of 120 mm or less Continue Valsartan 320 mg QD, Metoprolol ER 50 mg QD and HCTZ 25 mg QD (6) Carcinoid tumor: Comment: (S/P RUL lobectomy at [facility] - 08/2016) Code(s): D3A.00 - Benign carcinoid tumor of unspecified site Qualifiers: Carcinoid tumor malignancy status: malignant Carcinoid tumor location: lung Qualified Code(s): 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 Waggoner on 09/02/[address] done in September 2020, August 2021, October 2023 and most recently in January 2024 showed stable findings with (+) pulmonary nodules that appear benign Follow up with pulmonary and Dr. Waggoner and oncology as scheduled for continuing surveillance (7) Asthma: Code(s): J45.909 - Unspecified asthma, uncomplicated Qualifiers: Asthma severity: moderate Asthma persistence: persistent Asthma complication type: with acute exacerbation Qualified Code(s): J45.41 - Moderate persistent asthma with (acute) exacerbation Plan: Continue Flovent HFA 220 mcg 1 inhalation BID, Stiolto Respimat 2.5-2.5 mcg 2 inhalations QD, Albuterol HFA 2 inhalations Q 6 hours PRN and updraft treatments with Ipratropium-Albuterol 0.5-3 mg/3 ml QID PRN Continue Montelukast 10 mg QD and Loratadine 10 mg QD PRN Continue Azithromycin MWF for prophylactic Tx - started by pulmonary at her last visit recently Follow up with pulmonary as scheduled (8) Respiratory tract infection: Code(s): J98.8 - Other specified respiratory disorders Plan: Will start her empirically on Azithromycin QD x 5 days Patient is advised to call back if she does not experience any significant improvement of her symptoms or if she feels worse over the next week or so (9) Obstructive sleep apnea: Code(s): G47.33 - Obstructive sleep apnea (adult) (pediatric) Plan: States that she has not been using her CPAP device lately and is scheduled for a repeat sleep study for further evaluation soon Follow up with Sleep Medicine as scheduled (10) GERD (gastroesophageal reflux disease): Code(s): K21.9 - Gastro-esophageal reflux disease without esophagitis Qualifiers: Esophagitis presence: without esophagitis Qualified Code(s): K21.9 - Gastro-esophageal reflux disease without esophagitis Plan: Dietary restrictions reinforced Continue Dexlansoprazole 60 mg QD Follow up with GI as scheduled (11) Vitamin B12 deficiency: Code(s): E53.8 - Deficiency of other specified B group vitamins Plan: Her B12 level was still overcorrected (1482) back in August 2024 and she should continue on her B12 tablets at BIW dosing Will recheck her B12 level in 4 months for follow up (12) Vitamin D deficiency: Code(s): E55.9 - Vitamin D deficiency, unspecified Plan: Continue Vitamin D3 2000 units QD (13) Cognitive impairment: Code(s): R41.89 - Other symptoms and signs involving cognitive functions and awareness Plan: Continue Memantine 10 mg BID Follow up with neurology as scheduled (14) Lumbar degenerative disc disease: Code(s): M51.36 - Other intervertebral disc degeneration, lumbar region Qualifiers: Disc-related pain type: discogenic back pain only Qualified Code(s): M51.360 - Other intervertebral disc degeneration, lumbar region with discogenic back pain only Plan: Reinforced activity and weight-lifting restrictions Continue Tizanidine 4 mg TID PRN and Tramadol 50 mg TID PRN for pain (15) Osteoarthritis: Code(s): M19.90 - Unspecified osteoarthritis, unspecified site Qualifiers: Osteoarthritis location: unspecified site Osteoarthritis type: primary Qualified Code(s): M19.91 - Primary osteoarthritis, unspecified site Plan: Continue Tramadol 50 mg TID PRN for pain Follow up with rheumatology and pain management as scheduled (16) Fibromyalgia: Code(s): M79.7 - Fibromyalgia Plan: Continue Pregabalin 200 mg Q 8 hours and Tizanidine 4 mg TID PRN (17) Anxiety: Code(s): F41.9 - Anxiety disorder, unspecified Plan: Continue Lorazepam 1 mg BID-TID PRN (18) Depression: Code(s): F32.9 - Major depressive disorder, single episode, unspecified Qualifiers: Depression Type: major depressive disorder Major depression recurrence: recurrent Active/Remission status: currently active Major depression episode severity: unspecified Qualified Code(s): F33.9 - Major depressive disorder, recurrent, unspecified Plan: Continue Sertraline 50 mg QD (19) Morbid obesity with BMI of 40.0-44.9, adult: Code(s): E66.01 - Morbid (severe) obesity due to excess calories; Z68.41 - Body mass index [BMI] 40.0-44.9, adult Plan: Reinforced diet; exercise and weight loss are unrealistic given patient's multiple comorbidities and physical issues Plan Follow up in 4 months Orders: Orders Complete Blood Count Auto Diff 4 Months D64.9 - Anemia, unspecified Lipid Panel 4 Months E78.00 - Pure hypercholesterolemia, unspecified Microalbumin, Random (w Creat) 4 Months E11.9 - Type 2 diabetes mellitus without complications Vitamin D 25-OH Total 4 Months E55.9 - Vitamin D deficiency, unspecified Vitamin B12 and Folate 4 Months E53.8 - Deficiency of other specified B group vitamins Comprehensive [place]. Panel Fast 4 Months E78.00 - Pure hypercholesterolemia, unspecified Hemoglobin A1c 4 Months E11.9 - Type 2 diabetes mellitus without complications TSH reflex Free T4 4 Months E78.00 - Pure hypercholesterolemia, unspecified UA CC w/rflx Micro + Cult 4 Months R30.0 - Dysuria Medications: New azithromycin take 500 mg today (day 1), then 250 mg for 4 days (days 2-5) PO 6 tabs 0RF Quality Reporting (2019) Depression/Bipolar (159/160/161/177) PHQ-9: Total score: 9 Coding Level of Care Code Medicare Subsequent (G0439) Est Pt Level 4 (57161) Diagnoses Medicare annual wellness visit, subsequent Z00.00 Type 2 diabetes mellitus with diabetic polyneuropathy, with long-term current use of insulin E11.42; Z79.4 Diabetes mellitus prison insulin use: with prison use Coronary artery disease involving [place] coronary artery of [place] heart without angina pectoris I25.10 Coronary Disease-Associated Artery/Lesion type: [place] artery [place] vs. 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 Carcinoid tumor location: lung Moderate persistent asthma with acute exacerbation J45.41 Asthma severity: moderate Asthma persistence: persistent Asthma complication type: with acute exacerbation Respiratory tract infection J98.8 Obstructive sleep apnea G47.33 Gastroesophageal reflux disease without esophagitis K21.9 Esophagitis presence: without esophagitis Vitamin B12 deficiency E53.8 Vitamin D deficiency E55.9 Cognitive impairment R41.89 Degeneration of intervertebral disc of lumbar region with discogenic back pain M51.360 Disc-related pain type: discogenic back pain only Primary osteoarthritis, unspecified site M19.91 Osteoarthritis location: unspecified site Osteoarthritis type: primary Fibromyalgia M79.7 Anxiety F41.9 Episode of recurrent major depressive disorder, unspecified depression episode severity F33.9 Depression Type: major depressive disorder Major depression recurrence: recurrent Active/Remission status: currently active Major depression episode severity: unspecified Morbid obesity with BMI of 40.0-44.9, adult E66.01; Z68.41 Additional Codes PHQ-9 - 09263 - PHQ-9 Billing: Yes ([id number])
== END 2024-11-22 11:59 | disposition home or self-care (01) ==
LOC: HO.HMCH 10:13
PROVIDERS: PCP Internal Medicine; Visit Provider Internal Medicine
DX: E11.42 Type 2 diabetes mellitus with diabetic polyneuropathy (principal); E66.01 Morbid (severe) obesity due to excess calories; Z68.41 Body mass index [BMI] 40.0-44.9, adult; Z79.4 Long term (current) use of insulin; C7A.090 Malignant carcinoid tumor of the bronchus and lung; I25.10 Atherosclerotic heart disease of native coronary artery without angina pectoris; E78.00 Pure hypercholesterolemia, unspecified; I10 Essential (primary) hypertension; J45.41 Moderate persistent asthma with (acute) exacerbation; J98.8 Other specified respiratory disorders; G47.33 Obstructive sleep apnea (adult) (pediatric)

== ENCOUNTER 2024-11-23 13:03 | Outpatient (AMB) | payer MEDICARE, MEDICAID, SELFPAY ==
[2024-11-23 13:31] VITALS: BP 123/65; PULSE 80; BMI 41.9
--- NOTE | 2024-11-23 13:31 | MHC.OFFVIS ---
Vital Signs 11/23/24 13:31 Height 5 ft 1 in Weight 222 lb BMI 41.9 BP 123/65 Blood Pressure Location Rt brachial Position Sitting Pulse 80 Intake Visit Reasons: Follow up 2 months R/S 11/22/24 Intake Note: Radha returns to in office follow up of constipation. CC: Patient states that she was constipated but took the Linzess yesterday and was able to have a BM. She also c/o nausea and an upset stomach. Exhibit Technician Required: Yes Exhibit Technician Services: Exhibit Technician Offered & Declined Exhibit Technician Name: cortez Accompanied by: [place] Allergies penicillin G Allergy (Severe, Verified 11/23/24 13:49) Itching latex Allergy (Intermediate, Verified 11/23/24 13:49) Itching nitrofurantoin Allergy (Intermediate, Verified 11/23/24 13:49) itching and redness (in the legs) HPI HPI Follow up 2 months R/S 11/22/24: Details: Assessment & Plan (1) Chronic idiopathic constipation: Code(s): K59.04 - Chronic idiopathic constipation Category: Medical (2) GERD (gastroesophageal reflux disease): Code(s): K21.9 - Gastro-esophageal reflux disease without esophagitis Category: Medical Qualifiers: Esophagitis presence: without esophagitis Qualified Code(s): K21.9 - Gastro-esophageal reflux disease without esophagitis (3) Pre-op examination: Code(s): Z01.818 - Encounter for other preprocedural examination Category: Medical (4) Tubular adenoma of colon: Comment: 2022 scope 3 repeat 1 y ears Code(s): D12.6 - Benign neoplasm of colon, unspecified Category: Medical (5) Gallstones: Code(s): K80.20 - Calculus of gallbladder without cholecystitis without obstruction Category: Medical (6) Obstructive sleep apnea: Code(s): G47.33 - Obstructive sleep apnea (adult) (pediatric) Category: Medical (7) Chronic bronchitis: Code(s): J42 - Unspecified chronic bronchitis Category: Medical Qualifiers: Chronic bronchitis type: mucopurulent Qualified Code(s): J41.1 - Mucopurulent chronic bronchitis Plan [place] #Ambreen Live She is now having CIC. With this, i suggest we restart the Linzess but qod. Her current GI regimen is: She advises me that she was changed from Trulicity to Mounjaro, this may necessitate an increase in the reglan or LInzess as they titrate her dose. She tells me that her PCP told her she had discomfort because of my hernia, I think they are referring to a HH which is minimal for her. Then she says there is something wrong with my liver, I review the labs and US with elastography and this is most likely fatty liver given her NIDDM as well. She was educated about this and sx of gallstones and to avoid high fat foods as this could precipitate an attack. She is due for repeat colonoscopy due to insufficient prep at her last. He has a history of coronary artery disease is stable she also has sleep apnea and asthma as well as a history of a lung lobectomy. There are no prior problems with anesthesia or sedation. There are no infectious disease problems. ROV 8 weeks. Orders: Orders Colonoscopy - GI Use Only Today D12.6 - Benign neoplasm of colon, unspecified Medications: New bisacodyl (Dulcolax (bisacodyl)) 10 mg (2 x 5 mg) PO BEDTIME 4 tabs 0RF 2 days sodium,potassium,mag sulfates 17.5-3.13-1.6 gram (Suprep Bowel Prep Kit) 480 mL orally; FOR COLONOSCOPY PREP 354 mL 0RF COLONOSCOPY BIOPSY TODAY'S VISIT [place] #dtr translates per pt request She was very, very constipated and they continue to increase her Mounjaro dose. SHe was not moving her bowels and they were very hard, until she took the LInzess 72. This worked, but it gave her diarrhea. I will increase her from 5mg to 10mg tid to keep the GI motility better. She also wants an abd xr as she feels gernally bloated - which could come from the Mounjaro and this was explained. Save LInzess for emergencies and if CIC becomes worse with increasing Glp-1. Also sending senna as a bridge therapy. She continues on her Dexilant and dicyclomine. It appears her primary care also gave her famotidine for breakthrough GERD. She has used Metamucil in the past. Return office visit in 3 weeks [facility] Medical History (Updated 11/23/24 @ 15:47 by VINAY Phillips) Status post fall Elevated LFTs Pre-op examination Medicare annual wellness visit, subsequent Cyanosis of skin Respiratory tract infection Weakness of left upper extremity Left leg pain Myofascial muscle pain Bilateral knee pain Left hip pain Back pain Joint pain in both hands Osteoarthritis Encounter for well woman exam with routine gynecological exam Vulvar itching Stress incontinence Medicare annual wellness visit, subsequent Otitis media of right ear Sore throat Upper respiratory tract infection URI, acute Frequent fecal incontinence Stool incontinence Right sided abdominal pain Frozen shoulder Chest pain Calcific tendinitis of left shoulder Weakness of both lower extremities Joint pain in fingers of both hands Vitamin B12 deficiency Bilateral ankle pain Rash Right foot pain Cervical cancer screening Bronchopneumonia Chronic low back pain Bilateral foot pain Bilateral hip pain Annual physical exam Hyperlipidemia LDL goal <70 Bilateral hip pain Fibromyalgia Chronic bronchitis Vitamin D deficiency Post-thoracotomy pain syndrome COPD (chronic obstructive pulmonary disease) Depression Anxiety Type 2 diabetes mellitus with diabetic polyneuropathy Pulmonary nodules Allergic rhinitis GERD (gastroesophageal reflux disease) Morbid obesity with BMI of 40.0-44.9, adult Asthma Obstructive sleep apnea Lumbar degenerative disc disease Carcinoid tumor Coronary artery disease Benign essential hypertension Type 2 diabetes mellitus with hyperglycemia, with long-term current use of insulin Surgical History History of rectal sphincterotomy (~11/2013) History of colonoscopy (~12/2013) History of tubal ligation History of lung biopsy (~07/2016) History of esophagogastroduodenoscopy (EGD) (~10/2011) History of lobectomy of lung (~08/2016) History of cardiac cath (~07/2018) Family History Father Stroke Hypertension Diabetes Mother Diabetes Hypertension Other Arthritis Lupus Social History (Reviewed 11/23/24 @ 13:49 by KWAKU Shahid Household Members: Spouse Housing: Apartment Alcohol intake: never Patient Tobacco Use Status: Former Tobacco user Tobacco use type: Cigarette e-Cigarette/Vaping Use: Never Used Second Hand Smoke Exposure: Yes service: No Current occupational status: disabled Cognitive needs: No Hearing needs: No Vision needs: Yes Review of Systems Const Denies fatigue, Denies fever(s), Denies night sweats, Denies poor appetite and Denies weight loss ENT Reports Normal hearing present, Denies dysphagia, Denies odynophagia, Denies throat swelling and Denies tongue swelling Card Reports no additional complaints Resp Reports no additional complaints GI Details: Denies abdominal pain, Denies melena, Reports bloating, Denies hematochezia, Reports constipation, Denies GI cramping, Denies dysphagia, Denies excessive flatus, Denies early satiety, Reports heartburn, Denies diarrhea, Reports nausea, Denies odynophagia, Denies vomiting and Denies hematemesis Skin/Breast Denies pruritus, Denies lesions, Denies rash and Denies jaundice Neuro Reports Normal hearing present and Denies Abnormal speech present Endo Denies fatigue Aller/Immun Denies throat swelling and Denies tongue swelling Physical Exam Vital Signs: Last Vital Signs Pulse 80 11/23/24 13:31 BP 123/65 11/23/24 13:31 BMI result Body Mass Index 41.9 Const General: cooperative, no acute distress, well developed and well groomed Nutritional Appearance: well nourished and obese Orientation/consciousness: oriented to person, oriented to place and oriented to time Limitations: language barrier and ambulation with cane HEENT Head: Yes normocephalic and Yes atraumatic Eyes General: appearance normal, both eyes and all related structures Pupils: Equal, round and reactive pupils present Neck Neck: Yes normal visual inspection and Yes no lymphadenopathy Thyroid: Thyroid normal Resp Effort & Inspection: normal respiratory effort and able to speak in complete sentences Auscultation: clear to auscultation bilaterally Cardio Rate: regular rate Rhythm: regular rhythm Heart sounds: Normal, physiologic split S2 sound present Peripheral pulses: radial pulses present and posterior tibial pulses present GI Inspection: No distended, Yes Abdominal panniculus present and Yes obesity Palpation (GI): Soft to palpation, nontender, no guarding, not rigid and No hepatosplenomegaly present Percussion: Yes normal to percussion Auscultation: normal bowel sounds Rectal Exam - Female: deferred Skin General skin exam: no rashes or lesions noted, turgor normal, skin not dry, no jaundice, No spider nevi and no striae Rashes: no rashes Nails: normal Neuro General: oriented to person, oriented to place and oriented to time Cranial nerves: Yes Equal, round and reactive pupils present and Yes Normal hearing present Speech: No Abnormal speech present Extrem General: Yes normal to inspection, No clubbing, No cyanosis and No edema Psych Appearance: grossly normal and well kempt Mental Status: mental status grossly normal Speech and movement: Normal speech and movement present Affect: normal affect Attitude: cooperative Thought process: Normal thought process present and not confabulating Thought content: Normal thought content present Insight: Fair insight present (Psych) Judgement: Fair judgement present (Psych) Assessment & Plan Assessment & Plan (1) Chronic idiopathic constipation: Code(s): K59.04 - Chronic idiopathic constipation Category: Medical (2) GERD (gastroesophageal reflux disease): Code(s): K21.9 - Gastro-esophageal reflux disease without esophagitis Category: Medical Qualifiers: Esophagitis presence: without esophagitis Qualified Code(s): K21.9 - Gastro-esophageal reflux disease without esophagitis Plan [place] #dtr translates per pt request She was very, very constipated and they continue to increase her Mounjaro dose. SHe was not moving her bowels and they were very hard, until she took the LInzess 72. This worked, but it gave her diarrhea. I will increase her from 5mg to 10mg tid to keep the GI motility better. She also wants an abd xr as she feels gernally bloated - which could come from the Mounjaro and this was explained. Save LInzess for emergencies and if CIC becomes worse with increasing Glp-1. Also sending senna as a bridge therapy. She continues on her Dexilant and dicyclomine. It appears her primary care also gave her famotidine for breakthrough GERD. She has used Metamucil in the past. Return office visit in 3 weeks Orders: Orders XR abdomen w decubitus Today K59.04 - Chronic idiopathic constipation Medications: New metoclopramide HCl (Reglan) 10 mg PO .tidac 90 tabs 6RF K59.04 - Chronic idiopathic constipation sennosides (Senna Laxative) 17.2 mg (2 x 8.6 mg) PO BEDTIME 60 tabs 3RF 30 days K59.04 - Chronic idiopathic constipation Discontinued metoclopramide HCl (Reglan) Discontinued Reason: Doctor's Order 5 mg PO .tidachs 90 tabs 6RF K21.9 - Gastro-esophageal reflux disease without esophagitis Coding Level of Care Code Est Pt Level 3 (86387) Diagnoses Chronic idiopathic constipation K59.04 Gastroesophageal reflux disease without esophagitis K21.9 Esophagitis presence: without esophagitis
--- OUTSIDE RECORDS SUMMARY | 2024-11-23 17:05 | XMS_ITS | Patient Health Record ---
Author Organization [facility] Address [address] [place] [address] Care Team Providers Care Pockets And Pieces Necktie Operator Name Role Phone Juventino CHOPRA [place] Primary Care Provider Jeffrey Gerard [phone] Reason For Referral No Information Medications Medication [...] Status Risk Notes Problem Blood in stool (526581581) Blood in stool (578.1) Active confirmed Problem Constipation (91567473) Constipation (564.00) Active confirmed Problem Gastroesophageal reflux disease (070798406) GERD (gastroesophage al reflux disease) (530.81) Active confirmed Plan Of Treatment Future Test Test Name Order Date COLONOSCOPY 11/14/2013 Insurance Providers Payer Name Payer Address Payer Phone Subscriber Number Group Number Insured Name Patient Relationship to Insured Coverage Start Date Coverage End Date [facility] [address] [place] [phone] [id number] PATO HAYNES Self - patient is the insured Medical (General) History Medical History History ICD Code NIDDM Asthma Denies NC,CVA,renal disease EGD in 10/[address] RobledoPdpgqa-lbk-ithqde gastric bx-neg H.pylori HTN Had a sleep study in 10/2013-awaiting res ults Neg GB U/S in 09/2013 Depression Hyperlipidemia Surgical History Surgery Date(Month/Year) tubal ligation ear surgery
--- OUTSIDE RECORDS SUMMARY | 2024-11-23 17:05 | XMS_ITS | Clinical Summary ---
Author Organization [facility] Address [address] [place] [phone] Phone Care Team Providers Care Atg Java Developer Name Role Phone Leroy Sanchez MD [...] lower extremities 021 Carcinoid tumor of lung ([facility]/HCC V28) 10/06/2016 Assessment & Plan [...] being seen in a pain clinic at [place]. Plan from our standpoint will be for a 1 year follow-up CT scan of the chest and a visit in this office after that. All questions were answered. This visit was done through the video diplomatic interpreter/translator services. Chronic obstructive pulmonar y disease ([facility] V24, [facility] V28) 09/29/2016 Obstructive sleep apnea syndrome 09/29/2016 Overview (12/23/2023): [facility] Home Polysomnogram: Date 05/17/2017; AHI 6, Unclassified apneas 0; Obstructive apneas 0; Central apneas 0; Mixed apneas 0; hypopneas 37; average oxygen saturation 94% (lowest 82% without saturations <88% for 5% or more of study) - Obstructive Sleep Apnea - mild; all hypopneas; no sleep related hypoventilation by 2018 home polysomnogram. Depression 04/04/2012 DM2 (diabetes mellitus, type 2) ([facility] V24, [facility] V28) 04/04/2012 Hyperlipidemia with [...] < 70 DM2 (diabetes mellitus, type 2) ([facility] V24, [facility] V28) 04/04/2012 DX:DM2 (diabetes mellitus, t ype 2) ([facility]) Lumbar disc disease 04/04/2012 DX:Lumbar di sc disease Depression 04/04/2012 DX:Depression Anxiety 04/04/2012 DX:Anxiety Obesity 04/04/2012 DX:Obesity LBBB (left bundle branch block) 04/04/2012 DX:LBBB (left bundle branch block) Emphysema lung ([facility] [place], [facility] V28) DX:Emphysema lung (HCC) Fibromyalgia DX:Fibromyalgia Arthritis [...] Procedure Name Priority Date/Time Associated Diagnosis Comments [facility] SCREENING DIGITAL Routine 06/16/2023 11:59 AM EDT Encounter for screening mammogram for malignant neoplasm of breast from Last 3 Months or Most Recently Relevant to Health Maintenance Results * [facility] SCREENING DIGITAL (06/16/2023 11:59 AM EDT) Anatomical Region Laterality Modality Mammography 06/16/2023 10:3 6 AM EDT Narrative 06/16/2023 11:59 AM EDT [facility] Diagnostic Imaging Department [address] [place] [address] Patient: PATO SAHU I /Age/Sex: 1955 - 67 - F Unit#: [id number] Location/Status: SPDIMAM/REG CLI Mnemonic/Ordering Site: [facility] Ordering Physician: LEROY SANCHEZ MD [facility] Screening Digital - 06/16/23 - 1106 Report Status:Signed EXAM: [facility] Screening Digital EXAM DATE AND TIME: 06/16/2023 11:07 AM HISTORY: Annual screening COMPARISON: Multiple exams dating back to 2016 TECHNIQUE: Bilateral digital breast tomosynthesis was performed in the CC and MLO projections. Computer aided detection with Bionovo 3D 3.1 was employed. TISSUE DENSITY: b. [...] [facility] Diagnostic Imaging Department [address] [place] [id number] Patient: PATO SAHU Nikki /Age/Sex: 1955 - 67 - F Unit#: [id number] Location/Status: SPDIMAM/REG CLI Mnemonic/Ordering Site: [facility] Ordering Physician: LEROY SANCHEZ MD [facility] Screening Digital - 06/16/23 - 1106 Report Status:Signed EXAM: [facility] Screening Digital EXAM DATE AND TIME: 06/16/2023 11:07 AM HISTORY: Annual screening COMPARISON: Multiple exams dating back to 2016 TECHNIQUE: Bilateral digital breast tomosynthesis was performed in the CCand MLO projections. Computer aided detection with Bionovo 3D 3.1was employed. TISSUE DENSITY: b. There [...] MEDICARE ADVANTAGE [place] - [place] Care Teams Atg Java Developer Relationship Specialty Start Date End Date Leroy Sanchez MD [address] [place] [address] [address] RAN Suarez PCP - General Internal Medicine 11/27/11
== END 2024-11-23 14:22 | disposition home or self-care (01) ==
LOC: HO.HGI 13:04
PROVIDERS: PCP Internal Medicine; Visit Provider Nurse Practitioner
DX: K59.04 Chronic idiopathic constipation (principal); K21.9 Gastro-esophageal reflux disease without esophagitis
CPT/HCPCS: 99213

== ENCOUNTER → 2024-11-23 13:03 | Outpatient (BNVA) | payer MEDICARE, MEDICAID, SELFPAY | PROVIDERS: PCP Internal Medicine; Visit Provider Nurse Practitioner | DX: Z01.818 Encounter for other preprocedural examination (principal); K59.04 Chronic idiopathic constipation; K21.9 Gastro-esophageal reflux disease without esophagitis | CPT/HCPCS: 99212 ==

== ENCOUNTER 2024-11-28 11:40 | Outpatient (REF) | payer MEDICARE, MEDICAID, SELFPAY ==
--- NOTE | ~2024-11-28 | XR_ITS ---
EXAMINATION: XR ABDOMEN COMPLETE CLINICAL INDICATION: K59.04 - Chronic idiopathic constipation COMPARISON: August 31, 2018. TECHNIQUE: AP views of the abdomen. FINDINGS: Stool throughout the large intestine. No intestinal dilatation. No air-fluid levels. No calcifications overlapping the kidney shadows. The liver projects below the rib cage. L2 level thoracolumbar spondylosis, moderate to severe. Degenerative changes in the sacroiliac joints, symphysis pubis and both hips. No acute fracture. No lytic or blastic lesions. Patient's large body habitus.. XR/XR abdomen min 2V IMPRESSION: Abundant stool without intestinal obstruction pattern. Multilevel spondylosis, moderate to severe. Electronically signed by: Napoleon Vega MD 11/28/2024 12:16 PM EDT
--- OUTSIDE RECORDS SUMMARY | 2024-11-28 15:55 | XMS_ITS | Patient Health Record ---
Author Organization [facility] Address [address] [place] [address] Care Team Providers Care Switch Coupler Name Role Phone Juevntino CHOPRA [place] Primary Care Provider Jeffrey Gerard [phone] Reason For Referral No Information Medications Medication [...] Status Risk Notes Problem Blood in stool (771096322) Blood in stool (578.1) Active confirmed Problem Constipation (31531391) Constipation (564.00) Active confirmed Problem Gastroesophageal reflux disease (505491910) GERD (gastroesophage al reflux disease) (530.81) Active confirmed Plan Of Treatment Future Test Test Name Order Date COLONOSCOPY 11/14/2013 Insurance Providers Payer Name Payer Address Payer Phone Subscriber Number Group Number Insured Name Patient Relationship to Insured Coverage Start Date Coverage End Date [facility] [address] [place] [phone] [id number] PATO HAYNES Self - patient is the insured Medical (General) History Medical History History ICD Code NIDDM Asthma Denies [place],CVA,renal disease EGD in 10/[address] RobledoAqfbrp-qia-cepliy gastric bx-neg H.pylori HTN Had a sleep study in 10/2013-awaiting res ults Neg GB U/S in 09/2013 Depression Hyperlipidemia Surgical History Surgery Date(Month/Year) tubal ligation ear surgery
--- OUTSIDE RECORDS SUMMARY | 2024-11-28 15:55 | XMS_ITS | Clinical Summary ---
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 Plan from our standpoint will be for a 1 year follow-up CT scan of the chest and a visit in this office after that. All questions were answered. This visit was done through the video lang interpreter services. Chronic obstructive pulmonar y disease ([facility] V24, [facility] V28) 09/29/2016 Obstructive sleep apnea syndrome 09/29/2016 Overview (12/23/2023): [facility] Home Polysomnogram: Date 05/17/2017; AHI 6, Unclassified apneas 0; Obstructive apneas 0; Central apneas 0; Mixed apneas 0; hypopneas 37; average oxygen saturation 94% (lowest 82% without saturations <88% for 5% or more of study) - Obstructive Sleep Apnea - mild; all hypopneas; no sleep related hypoventilation by 2018 home polysomnogram. Depression 04/04/2012 DM2 (diabetes mellitus, type 2) ([facility] V24, [facility] V28) 04/04/2012 Hyperlipidemia with target LDL less [...] < 70 DM2 (diabetes mellitus, type 2) ([facility] V24, [facility] V28) 04/04/2012 DX:DM2 (diabetes mellitus, t ype 2) ([facility]) Lumbar disc disease 04/04/2012 DX:Lumbar di sc [...] Procedure Name Priority Date/Time Associated Diagnosis Comments [facility] SCREENING DIGITAL Routine 06/16/2023 11:59 AM EDT Encounter for screening mammogram for malignant neoplasm of breast from Last 3 Months or Most Recently Relevant to Health Maintenance Results * [facility] SCREENING DIGITAL (06/16/2023 11:59 AM EDT) Anatomical Region Laterality Modality Mammography 06/16/2023 10:3 6 AM EDT Narrative 06/16/2023 11:59 AM EDT [facility] Diagnostic Imaging Department [address] [place] [address] Patient: PATO SAHU I /Age/Sex: 1955 - 67 - F Unit#: [id number] Location/Status: SPDIMAM/REG CLI Mnemonic/Ordering Site: [facility] Ordering Physician: LEROY SANCHEZ MD [facility] Screening Digital - 06/16/23 - 1106 Report Status:Signed EXAM: [facility] Screening Digital EXAM DATE AND TIME: 06/16/2023 11:07 AM HISTORY: Annual screening COMPARISON: Multiple exams dating back to 2016 TECHNIQUE: Bilateral digital breast tomosynthesis was performed in the CC and MLO projections. Computer aided detection with Bday 3D 3.1 was employed. TISSUE DENSITY: b. [...] [facility] Diagnostic Imaging Department [address] [place] [address] Patient: PATO SAHU Nikki /Age/Sex: 1955 - 67 - F Unit#: [id number] Location/Status: SPDIMAM/REG CLI Mnemonic/Ordering Site: [facility] Ordering Physician: LEROY SANCHEZ MD [facility] Screening Digital - 06/16/23 - 1106 Report Status:Signed EXAM: [facility] Screening Digital EXAM DATE AND TIME: 06/16/2023 11:07 AM HISTORY: Annual screening COMPARISON: Multiple exams dating back to 2016 TECHNIQUE: Bilateral digital breast tomosynthesis was performed in the CCand MLO projections. Computer aided detection with Bday 3D 3.1was employed. TISSUE DENSITY: b. There [...] MEDICARE ADVANTAGE [place] - [place] Care Teams Small Brake Form Operator Relationship Specialty Start Date End Date Leroy Sanchez MD [address] [place] [address] [address] RAN Suarez PCP - General Internal Medicine 11/27/11
== END 2024-11-28 11:41 | disposition home or self-care (01) ==
LOC: HO.XRAY 11:40
PROVIDERS: PCP Internal Medicine; Visit Provider Nurse Practitioner
DX: K59.04 Chronic idiopathic constipation (principal)
CPT/HCPCS: 74019

== ENCOUNTER → 2024-11-28 11:45 | Outpatient (BNV) | payer MEDICARE, MEDICAID, SELFPAY | PROVIDERS: PCP Internal Medicine; Visit Provider Radiology Diagnostic Radiology | DX: K59.04 Chronic idiopathic constipation (principal) | CPT/HCPCS: 74019 ==

== ENCOUNTER 2024-12-12 15:31 | Outpatient (REF) | payer MEDICARE, MEDICAID, SELFPAY ==
--- NOTE | ~2024-12-12 | CT_ITS ---
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 The visualized thyroid and mediastinum are unremarkable. The lungs are clear. The upper abdomen is unremarkable. No acute fractures. IMPRESSION: 1. Unremarkable chest CT. This document has been electronically signed by: Kelton Vasques MD on 12/13/2024 21:02:00
--- OUTSIDE RECORDS SUMMARY | 2024-12-12 16:46 | XMS_ITS | Patient Health Record ---
Author Organization [facility] Address [address] [place] [address] Care Team Providers Care Liquor Department Manager Name Role Phone Juventino CHOPRA [place] Primary Care Provider Jeffrey Gerard [phone] Reason For Referral No Information Medications Medication [...] Status Risk Notes Problem Blood in stool (397725590) Blood in stool (578.1) Active confirmed Problem Constipation (92787585) Constipation (564.00) Active confirmed Problem Gastroesophageal reflux disease (377544376) GERD (gastroesophage al reflux disease) (530.81) Active confirmed Plan Of Treatment Future Test Test Name Order Date COLONOSCOPY 11/14/2013 Insurance Providers Payer Name Payer Address Payer Phone Subscriber Number Group Number Insured Name Patient Relationship to Insured Coverage Start Date Coverage End Date [facility] [address] [place] [phone] [id number] PATO HAYNES Self - patient is the insured Medical (General) History Medical History History ICD Code NIDDM Asthma Denies [place],CVA,renal disease EGD in 10/[address] RobledoNyqdsn-xzx-fbgiwn gastric bx-neg H.pylori HTN Had a sleep study in 10/2013-awaiting res ults Neg GB U/S in 09/2013 Depression Hyperlipidemia Surgical History Surgery Date(Month/Year) tubal ligation ear surgery
--- OUTSIDE RECORDS SUMMARY | 2024-12-12 16:46 | XMS_ITS | Clinical Summary ---
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 Plan from our standpoint will be for a 1 year follow-up CT scan of the chest and a visit in this office after that. All questions were answered. This visit was done through the video translator/interpreter services. Chronic obstructive pulmonar y disease ([facility] V24, [facility] V28) 09/29/2016 Obstructive sleep apnea syndrome 09/29/2016 Overview (12/23/2023): [facility] Home Polysomnogram: Date 05/17/2017; AHI 6, Unclassified apneas 0; Obstructive apneas 0; Central apneas 0; Mixed apneas 0; hypopneas 37; average oxygen saturation 94% (lowest 82% without saturations <88% for 5% or more of study) - Obstructive Sleep Apnea - mild; all hypopneas; no sleep related hypoventilation by 2018 home polysomnogram. Depression 04/04/2012 DM2 (diabetes mellitus, type 2) ([facility] V24, [facility] V28) 04/04/2012 Hyperlipidemia with target LDL less [...] < 70 DM2 (diabetes mellitus, type 2) ([facility] V24, [facility] V28) 04/04/2012 DX:DM2 (diabetes mellitus, t ype 2) ([facility]) Lumbar disc disease 04/04/2012 DX:Lumbar di sc disease Depression 04/04/2012 DX:Depression Anxiety 04/04/2012 DX:Anxiety Obesity 04/04/2012 DX:Obesity LBBB (left bundle branch block) 04/04/2012 DX:LBBB (left bundle branch block) Emphysema lung ([facility] V24, [facility] V28) DX:Emphysema lung (HCC) Fibromyalgia DX:Fibromyalgia Arthritis [...] Health Maintenance Due Date Last Done Comments Colorectal Cancer Screening: Colonoscopy 1955 Diabetes: Annual GFR (Glomerular Filtration Rate) 1955 Diabetes: Annual Foot Exam 07/09/1965 Diabetes: Annual Retina Eye Exam 07/09/1965 Cholesterol Screening (Lipid Panel) 02/21/2022 Falls Risk Assessment 02/21/2022 Hepatitis C [...] Procedure Name Priority Date/Time Associated Diagnosis Comments [facility] SCREENING DIGITAL Routine 06/16/2023 11:59 AM EDT Encounter for screening mammogram for malignant neoplasm of breast from Last 3 Months or Most Recently Relevant to Health Maintenance Results * [facility] SCREENING DIGITAL (06/16/2023 11:59 AM EDT) Anatomical Region Laterality Modality Mammography 06/16/2023 10:3 6 AM EDT Narrative 06/16/2023 11:59 AM EDT [facility] Diagnostic Imaging Department [address] [place] [address] Patient: PATO SAHU I /Age/Sex: 1955 - 67 - F Unit#: [id number] Location/Status: SPDIMAM/REG CLI Mnemonic/Ordering Site: [facility] Ordering Physician: LEROY SANCHEZ MD [facility] Screening Digital - 06/16/23 - 1106 Report Status:Signed EXAM: [facility] Screening Digital EXAM DATE AND TIME: 06/16/2023 11:07 AM HISTORY: Annual screening COMPARISON: Multiple exams dating back to 2016 TECHNIQUE: Bilateral digital breast tomosynthesis was performed in the CC and MLO projections. Computer aided detection with KelDoc 3D 3.1 was employed. TISSUE DENSITY: b. [...] WALLY MOELLER MD Electronically Signed by: WALLY OMELLER MD Dic Date/Time: 06/16/23 1158 Sign date/Time: 06/16/23 1159 Procedure Note Wally Moeller MD - 11/01/2023 [facility] Diagnostic Imaging Department [address] [place] [address] Patient: PATO SAHU Nikki /Age/Sex: 1955 - 67 - F Unit#: [id number] Location/Status: SPDIMAM/REG CLI Mnemonic/Ordering Site: [facility] Ordering Physician: LEROY SANCHEZ MD [facility] Screening Digital - 06/16/23 - 1106 Report Status:Signed EXAM: [facility] Screening Digital EXAM DATE AND TIME: 06/16/2023 11:07 AM HISTORY: Annual screening COMPARISON: Multiple exams dating back to 2016 TECHNIQUE: Bilateral digital breast tomosynthesis was performed in the CCand MLO projections. Computer aided detection with KelDoc 3D 3.1was employed. TISSUE DENSITY: b. There [...] MEDICARE ADVANT[place] - [place] Care Teams Investigator Claims Relationship Specialty Start Date End Date Leroy Sanchez MD [address] [place] [address] [address] RAN Suarez PCP - General Internal Medicine 11/27/11
== END 2024-12-12 15:32 | disposition home or self-care (01) ==
LOC: HO.CT 15:31
PROVIDERS: PCP Internal Medicine; Visit Provider Hospitalist
DX: C7A.090 Malignant carcinoid tumor of the bronchus and lung (principal)
CPT/HCPCS: 71250

== ENCOUNTER → 2024-12-12 15:32 | Outpatient (BNV) | payer MEDICARE, MEDICAID, SELFPAY | PROVIDERS: PCP Internal Medicine; Visit Provider Specialist | DX: C7A.090 Malignant carcinoid tumor of the bronchus and lung (principal) | CPT/HCPCS: 71250 ==

== ENCOUNTER 2025-01-04 10:55 | Outpatient (AMB) | payer MEDICARE, MEDICAID, SELFPAY ==
[2025-01-04 11:11] VITALS: BP 120/58; PULSE 67; O2SAT 98; BMI 43.7
--- NOTE | 2025-01-04 11:11 | MHC.OFFVIS ---
Vital Signs 01/04/25 11:11 Height 5 ft 1 in Weight 231 lb 7.766 oz BMI 43.7 BP 120/58 L Blood Pressure Location Lt brachial Position Sitting Pulse 67 Pulse Source Pulse Oximeter Pulse Oximetry (%) 98 Oxygen Delivery Method Room Air Intake Visit Reasons: COPD Qa Lead Required: Yes Qa Lead Services: Qa Lead Offered & Declined Qa Lead Name: MD speaks italian Information Interpreted: clinical only Accompanied by: other Allergies penicillin G Allergy (Severe, Verified 01/04/25 11:16) Itching latex Allergy (Intermediate, Verified 01/04/25 11:16) Itching nitrofurantoin Allergy (Intermediate, Verified 01/04/25 11:16) itching and redness (in the legs) HPI Comments Details: The patient is a 69-year-old woman known carcinoid tumor status post resection. The patient also has a history of asthma and obstructive sleep apnea. She has been using the new respironic dream station. She is using more than 4 hours a night. However, she has not gotten any supplies. I did call her [employer] company and sent they will facilitate some supplies. In the meantime I did provide her mask F30 that she can try. Her asthma appears to be stable with the current respiratory medications. She has not had to use her rescue inhaler and she has not to use prednisone. She has been complaining of some discomfort over the right flank area. 03/25/2023 the patient is here for pulmonary follow-up visit. Overall she is doing better. She did complain the prednisone and the antibiotics during the last visit. Her chest discomfort is better. We did discuss and review the images from her last CT scan back in September 2022 with stable postoperative changes stable pulmonary nodules. She is due for repeat CT scan in September 2023. she continues use respiratory therapy with good effect. Her sleeping is overall better. again, her sleep study did not demonstrate any sleep apnea. She is using the Stiolto in the Flovent. These inhalers have been effective. Her respiratory exam is reassuring. The patient continues to do well will consider minimizing the inhaled steroid component. 08/05/2023 the patient is here for a pulmonary follow-up visit. The patient is still no better. She is still coughing. She had called a few weeks ago and I did send her a course of doxycycline. She did not feel like she completely improved she still having hard time with cough. Moderate severity. Denies any wheezing or chest tightness. She denies any fevers or chills. In addition to that she has been complaining of significant daytime drowsiness. She had been on CPAP before we had gotten multiple sleep studies but they have been negative for any sleep apnea. Although these were home sleep studies and the patient was not able to adequately sleep well during the study. She does have an elevated [place] score of 13/24. She does have cardiovascular risk factors. She also carries a diagnosis of sleep apnea. Will go ahead and request a repeat in-lab sleep study in order to get her back on CPAP. The patient also been followed closely for carcinoid lung cancer. The patient also has multiple pulmonary nodules that are being followed. Her last CT scan was 11/01/2022 and she is due for CT scan in 2023. Will go ahead and follow up with the patient after her CT scan in her sleep study. In the meantime will send her a 2nd course of antibiotics to treat her for bronchitis. She does not have any wheezing so therefore hold off on any prednisone. 11/11/2023 the patient is here for a pulmonary follow-up visit. The patient was in her usual state health until the last few months. She has not been feeling well she has had this productive cough now for several months. The last time she was here she was given Vantin but she did not feel like it helped. She still bringing up phlegm usually whitish or yellowish in color. Denies any hemoptysis. Typically sounds barky in nature. She has not underlying chronic bronchitis. Will going to go ahead and start her on azithromycin 3 times a week. In addition to that if she is no better she will get a sputum culture. She did have a CT scan of the chest done recently done on 10/18/2023 [facility]. It appears that she has a growing or new right upper lobe pulmonary nodule measuring 6 mm in size. The largest nodule that she had there a year ago was only 3 mm in size. Therefore, she is scheduled to go for repeat CT scan in 3-6 months. She will do that at [facility] as well. We did talk about the relevance of that. In the meantime will go ahead and treat her for the chronic bronchitis. She will continue with respiratory therapy. 12/23/2023 the patient is here for a pulmonary follow-up visit. She continues to have significant daytime drowsiness. Her [place] score is elevated 03/07. She was scheduled for the sleep study but then she had to reschedule. She has a new date sometime in January. The patient also has been having issues with a productive cough. She did complete the antibiotics and her mucus is clear but she still having significant chest congestion. Moderate severity. The only thing that helps her is when she goes on prednisone. Explained to her the concerns about using prednisone and worsening her other comorbidities. Therefore based on her chronic bronchitis and her frequent use of prednisone she will be a perfect candidate for Daliresp. We did talk about the adverse effects. Will go ahead and start her on the 500 mcg dose but she started every other day or so to get used to it. The patient also will be provided some prednisone case she gets worse but she should hold off for now. In addition to that she was found to have a new nodule back in October at [facility] was a 6 mm nodule. She is scheduled to have a repeat CT scan at [facility] in January. 05/02/2024 the patient is here for a pulmonary follow-up visit. Overall the patient has been doing well. She did start azithromycin 3 times a week and seems to be controlling her cough and chest congestion. Therefore will continue. She will need to get an EKG. In addition to that she did have a CT scan of the chest done in [facility]. Demonstrating that the 6 mm nodule decreased down to 4 mm in the other nodules are stable. She has not reticular changes likely postoperative changes which are not significant and done appear to be progressive. In addition to that she is struggling with CPAP. She is trying to use it but she does not feel like her mask is comfortable. I did call [facility] to see if they can switch her mask to an N20 mask. She will take it to her next appointment with [facility] to try to have some additional teachings in order to be able to be effective in using her CPAP. She needs to be able to use it 4 hours daily. She will follow-up in 3-4 months if she has any issues prior to that she will call for an earlier assessment. 08/28/2024 the patient is here for pulmonary follow-up visit. Overall she is doing okay. She has multiple elements including shortness of breath. Gets very winded with minimal activity. Also has significant arthritis and abdominal discomfort. This may be also playing a role in her dyspnea symptoms. She did recently have a CT scan of the chest I believe at [facility] to the thoracic surgery Department. Will request a copy. On previous CAT scan she was noted to have some gallstones. She is having right upper quadrant abdominal discomfort. During the visit we did go for brief walking oximetry the patient is oxygen seems to be doing okay. She may have more issues with bronchospasms during the day when she is outside walking and humidity that can also cause her to have bronchospasms. Therefore she can use her rescue inhaler prior to doing any activity specially outside. She continues use her CPAP. She is asking for smaller mask. I did provide her with an N30 I medium-sized mask. She is going to use it. Will request from from the [employer] as well. The CPAP therapy has been affecting beneficial and she does try to use it 4 hours a night as this is very important for her. Will follow-up in 4 months. If she has any issues prior to this she will call otherwise she will continue her current respiratory therapy and will follow-up with her primary care doctor regarding her abdominal symptoms and question of gallbladder disease. Tele if her symptoms were to worsen she would have to go to the ER for immediate care. 10/17/2024 the patient is here for pulmonary follow-up visit. She has multiple complaints. She had been sick with worsening cough chest tightness. She was prescribed prednisone and antibiotics. Her cough is now getting a little better although she still feels chest discomfort both lungs. Also complains of back pain. She has significant back issues. In addition to that she started developing elevated blood sugars because of the prednisone. Therefore we need to be careful with too much prednisone. The patient will be a good candidate for Ohtuvayre in order to treat her chronic bronchitis COPD and minimize the prednisone use. Will go ahead and request that from the pharmacy. In the meantime the patient does have a history of carcinoid lung cancer. She had her last CT scan in the fall of 2023 at [facility]. She has multiple pulmonary nodules. Will plan to repeat the CAT scan fall 2024. If her symptoms worsen she can always get an x-ray quicker to make sure that there isn't any ongoing lower respiratory infection. Right now will hold off on the azithromycin. She can continue with respiratory medicines. Her nebulizer broke and she does need a replacement. CPAP therapy has been affecting beneficial. She does use it for more than for them 4 hours a night. She gets her supplies from her [employer] company, [employer]. She would like to try new mask, F40. Will request the F40 fullface mask started kit. 01/04/2025 the patient is here for pulmonary follow-up visit. She continues to have chronic cough. Moderate severity. Has a hard time sleeping because of the cough. She did recently have a CT scan of the chest which I personally reviewed. Appears that her pulmonary nodules are stable postoperative changes are present and she does have some bronchiectatic changes in the left lower lobe along with bronchitis. She has been on the azithromycin 3 times a week without any significant improvement. Will switch over to doxycycline. In the meantime she can use some cough medication to help her as well. The patient will need to get repeat CAT scans but I do not like the reading that she got here specially since it did not account for any of the nodules that she has not CAT scan. Therefore will go ahead and send her to [facility] so she can continue get her CAT scans stairs specially since she has further comparisons there. She will continue with the current respiratory therapy. She is going to follow up with vascular surgery since she is having pain in her legs when she ambulates. [facility] Medical History (Updated 11/23/24 @ 15:47 by VINAY Phillips) Status post fall Elevated LFTs Pre-op examination Medicare annual wellness visit, subsequent Cyanosis of skin Respiratory tract infection Weakness of left upper extremity Left leg pain Myofascial muscle pain Bilateral knee pain Left hip pain Back pain Joint pain in both hands Osteoarthritis Encounter for well woman exam with routine gynecological exam Vulvar itching Stress incontinence Medicare annual wellness visit, subsequent Otitis media of right ear Sore throat Upper respiratory tract infection URI, acute Frequent fecal incontinence Stool incontinence Right sided abdominal pain Frozen shoulder Chest pain Calcific tendinitis of left shoulder Weakness of both lower extremities Joint pain in fingers of both hands Vitamin B12 deficiency Bilateral ankle pain Rash Right foot pain Cervical cancer screening Bronchopneumonia Chronic low back pain Bilateral foot pain Bilateral hip pain Annual physical exam Hyperlipidemia LDL goal <70 Bilateral hip pain Fibromyalgia Chronic bronchitis Vitamin D deficiency Post-thoracotomy pain syndrome COPD (chronic obstructive pulmonary disease) Depression Anxiety Type 2 diabetes mellitus with diabetic polyneuropathy Pulmonary nodules Allergic rhinitis GERD (gastroesophageal reflux disease) Morbid obesity with BMI of 40.0-44.9, adult Asthma Obstructive sleep apnea Lumbar degenerative disc disease Carcinoid tumor Coronary artery disease Benign essential hypertension Type 2 diabetes mellitus with hyperglycemia, with long-term current use of insulin Surgical History History of rectal sphincterotomy (~11/2013) History of colonoscopy (~12/2013) History of tubal ligation History of lung biopsy (~07/2016) History of esophagogastroduodenoscopy (EGD) (~10/2011) History of lobectomy of lung (~08/2016) History of cardiac cath (~07/2018) Family History Father Stroke Hypertension Diabetes Mother Diabetes Hypertension Other Arthritis Lupus Social History Household Members: Spouse Housing: Apartment Alcohol intake: never Patient Tobacco Use Status: Former Tobacco user Tobacco use type: Cigarette e-Cigarette/Vaping Use: Never Used Second Hand Smoke Exposure: Yes service: No Current occupational status: disabled Cognitive needs: No Hearing needs: No Vision needs: Yes Review of Systems Const Reports difficulty sleeping, Denies fatigue, Denies fever(s), Denies night sweats, Denies poor appetite, Reports snoring and Denies weight loss ENT Reports Normal hearing present, Denies dental pain, Denies dysphagia, Denies hearing loss, Denies mouth pain, Denies odynophagia, Denies throat swelling, Denies tongue swelling and Reports other (Dentition adequate) Card Denies chest pain and Reports dyspnea on exertion Resp Reports change in phlegm color, Reports chest congestion, Reports cough, Reports dyspnea on exertion, Reports snoring and Reports wheezing GI Reports abdominal pain, Denies melena, Reports bloating, Denies hematochezia, Denies constipation, Denies GI cramping, Denies dysphagia, Denies excessive flatus, Denies early satiety, Reports heartburn, Denies nausea, Denies odynophagia, Denies vomiting and Denies hematemesis Musc Reports no additional complaints and Reports myalgias Skin/Breast Denies pruritus, Denies lesions, Denies rash and Denies jaundice Neuro Reports Normal hearing present and Denies Abnormal speech present Endo Denies fatigue Aller/Immun Denies throat swelling, Denies tongue swelling and Reports wheezing Physical Exam Vital Signs: Last Vital Signs Pulse 67 01/04/25 11:11 BP 120/58 L 01/04/25 11:11 Pulse Ox 98 01/04/25 11:11 Oxygen Delivery Method Room Air 01/04/25 11:11 BMI result Body Mass Index 43.7 Const Orientation/consciousness: patient oriented x3 HEENT Head: Yes normocephalic Neck Neck: Yes supple Thyroid: Thyroid normal Lymphatic: no lymphadenopathy noted Chest Chest palpation & inspection: normal inspection of the chest Resp Effort & Inspection: normal respiratory effort Auscultation: diminished lung sounds Cardio Rate: regular rate Rhythm: regular rhythm Heart sounds: S1 normal heart sound present and S2 normal heart sound present GI Palpation (GI): Soft to palpation Skin General skin exam: no rashes or lesions noted Neuro General: patient oriented x3, gait normal and no focal motor deficits Cranial nerves: Yes Normal hearing present Speech: No Abnormal speech present Extrem Other: sensation intact General: Yes normal to inspection, Yes full ROM and Yes capillary refill normal Assessment & Plan Assessment & Plan (1) Carcinoid tumor: Comment: (S/[place] [facility] [place] Code(s): D3A.00 - Benign carcinoid tumor of unspecified site Category: Medical Qualifiers: Carcinoid tumor location: lung Carcinoid tumor malignancy status: malignant Qualified Code(s): C7A.090 - Malignant carcinoid tumor of the bronchus and lung (2) Post-thoracotomy pain syndrome: Code(s): G89.12 - Acute post-thoracotomy pain Category: Medical (3) Pulmonary nodules: Comment: Likely tumorlets Code(s): R91.8 - Other nonspecific abnormal finding of lung field Category: Medical (4) Obstructive sleep apnea: Code(s): G47.33 - Obstructive sleep apnea (adult) (pediatric) Category: Medical (5) Chronic bronchitis: Code(s): J42 - Unspecified chronic bronchitis Category: Medical Qualifiers: Chronic bronchitis type: mucopurulent Qualified Code(s): J41.1 - Mucopurulent chronic bronchitis (6) Gallstones: Code(s): K80.20 - Calculus of gallbladder without cholecystitis without obstruction Category: Medical Plan continue Flovent continue Stiolto daily SANGITA as needed nebulizer as needed Claritin continue Singulair Continue Ohtuvayre stop Azithromycin Start Doxycycline cough medicine Requesting CT chest in 1 year (Katy) continue APAP usage, requesting F40 Fit to mask F/U 3-4 months Medications: New codeine-guaifenesin 10-100 mg/5 mL 10 mL PO Q6H PRN 300 mL 0RF cough 10 days doxycycline monohydrate 100 mg PO BID 28 tabs 0RF 14 days Coding Level of Care Code Est Pt Level 4 (56854) Complex EM visit Add On G2211 Diagnoses 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 Carcinoid tumor location: lung Carcinoid tumor malignancy status: malignant Post-thoracotomy pain syndrome G89.12 Pulmonary nodules R91.8 Obstructive sleep apnea G47.33 Mucopurulent chronic bronchitis J41.1 Chronic bronchitis type: mucopurulent Gallstones K80.20 Time Spent (min) 20
--- OUTSIDE RECORDS SUMMARY | 2025-01-04 13:32 | XMS_ITS | Encounter Summary ---
Author Organization [facility] Address [address] [place] [address] Care Team Providers Care Aerial Erector Name Role Phone Leroy Jauregui MD Primary Care Provider Leroy Garcia MD Unavailable Unavailable Pratibha Waggoner MD Unavailable Encounter Details Date Type Department Care Team Description 10/21/2023 Orders Only [facility] Thoracic Surgery [place] [address] [facility] [address] [place] [id number] Pratibha Waggoner MD [address] [facility] [place] [address] [place] [address] [id number] Malignant carcinoid tumor of lung (HCC); Pulmonary [...] field documented in this encounter Care Teams Aerial Erector Relationship Specialty Start Date End Date Leroy Jauregui MD PCP - General Internal Medicine 11/11/21 Leroy Jauregui MD Internal Medicine 11/11/21 Pratibha Waggoner MD Lung Cancer Station Manager 12/28/22 documented as of this encounter
--- OUTSIDE RECORDS SUMMARY | 2025-01-04 13:33 | XMS_ITS | Encounter Summary ---
Author Organization [facility] Address [address] [place] [address] Care Team Providers Care Clinical Documentation Nurse Name Role Phone Leroy Jauregui MD Primary Care Provider Leroy Garcia MD Primary Care Provider Leroy Garcia MD Unavailable Unavailable Pratibha Waggoner MD Unavailable Encounter Details Date Type Department Care Team Description 04/26/2018 Release of Information Medical Records [address] [place] [id number] Abstract, Provider Social History Tobacco Use Types [...] on filedocumented in this encounter Care Teams Clinical Documentation Nurse Relationship Specialty Start Date End Date Leroy Jauregui MD PCP - General Internal Medicine 04/21/18 11/10/21 Leroy Jauregui MD PCP - General Internal Medicine 11/11/21 Leroy Jauregui MD Internal Medicine 11/11/21 Pratibha Waggoner MD Lung Cancer Denture Contour Wire Specialist 12/28/22 documented as of this encounter
--- OUTSIDE RECORDS SUMMARY | 2025-01-04 13:33 | XMS_ITS | Clinical Summary ---
Author Organization [facility] Address [address] [place] [address] Phone Care Team Providers Care Book Critic Name Role Phone Leroy Sanchez MD Primary Care Provider [phone] Allergies Active Allergy Reactions Criticality Noted Date [...] 10 mg capsule TOME ERICA C PSULA LOS D 1 Active blood sugar diagnostic [...] mg 24 hr tablet TOME ERICA TABLETA S LOS D 1 Active sertraline (ZOLOFT) 100 [...] lower extremities 021 Carcinoid tumor of lung (CMS/HCC V28) 10/06/2016 Assessment & Plan (02/21/2024 10:55 [...] being seen in a pain clinic at [place]. Plan from our standpoint will be for a 1 year follow-up CT scan of the chest and a visit in this office after that. All questions were answered. This visit was done through the video upholstery tech services. Chronic obstructive pulmonar y disease ([facility] V24, [facility] V28) 09/29/2016 Obstructive sleep apnea syndrome 09/29/2016 Overview (12/23/2023): [facility] Home Polysomnogram: Date 05/17/2017; AHI 6, Unclassified apneas 0; Obstructive apneas 0; Central apneas 0; Mixed apneas 0; hypopneas 37; average oxygen saturation 94% (lowest 82% without saturations <88% for 5% or more of study) - Obstructive Sleep Apnea - mild; all hypopneas; no sleep related hypoventilation by 2018 home polysomnogram. Depression 04/04/2012 DM2 (diabetes mellitus, type 2) ([facility] V24, [facility] V28) 04/04/2012 Hyperlipidemia with target LDL [...] < 70 DM2 (diabetes mellitus, type 2) ([facility] V24, [facility] V28) 04/04/2012 DX:DM2 (diabetes mellitus, t ype 2) ([facility]) Lumbar disc disease 04/04/2012 DX:Lumbar di sc disease Depression 04/04/2012 DX:Depression Anxiety 04/04/2012 DX:Anxiety Obesity 04/04/2012 DX:Obesity LBBB (left bundle branch block) 04/04/2012 DX:LBBB (left bundle branch block) Emphysema lung (CMS/HCC V24, CMS/HCC V28) DX:Emphysema lung (HCC) Fibromyalgia DX:Fibromyalgia Arthritis [...] 02/21/2024 10:39 AM EST Plan of Treatment Upcoming Encounters Date Type Department Care Team (Late st Contact Info) Description 02/15/2025 10:00 AM EST Consult Orthopedic Surgery - [place] [address] [address] Evangelista Reddy, DPJay [address] [phone] Health Maintenance Due Date Last Done Comments [...] Procedure Name Priority Date/Time Associated Diagnosis Comments CHRIS SCREENING DIGITAL Routine 06/16/2023 11:59 AM EDT Encounter for screening mammogram for malignant neoplasm of breast from Last 3 Months or Most Recently Relevant to Health Maintenance Results * [facility] SCREENING DIGITAL (06/16/2023 11:59 AM EDT) Anatomical Region Laterality Modality Mammography 06/16/2023 10:3 6 AM EDT Narrative 06/16/2023 11:[address] [facility] Diagnostic Imaging Department [address] [place] [address] Patient: PATO SAHU Nikki /Age/Sex: 1955 - 67 - F Unit#: [id number] Location/Status: [facility] CLI Mnemonic/Ordering Site: [facility] Ordering Physician: LEROY SANCHEZ MD [facility] Screening Digital - 06/16/23 - 1106 Report Status:Signed EXAM: [facility] Screening Digital EXAM DATE AND TIME: 06/16/2023 11:07 AM HISTORY: Annual screening COMPARISON: Multiple exams dating back to 2016 TECHNIQUE: Bilateral digital breast tomosynthesis was performed in the CC and MLO projections. Computer aided detection with enercast 3D 3.1 was employed. TISSUE DENSITY: b. [...] screening mammogram BILATERAL in 1 year. 3341F, 7080F Dictating Physician: WALLY MOELLER MD Electronically Signed by: WALLY MOELLER MD Dic Date/Time: 06/16/23 1158 Sign date/Time: 06/16/23 1159 Procedure Note Wally Moeller MD - 11/01/2023 [facility] Diagnostic Imaging Department [address] [place] [id number] Patient: SAHUPATO DAVIS I /Age/Sex: 1955 - 67 - F Unit#: [id number] Location/Status: [facility] CLI Mnemonic/Ordering Site: [facility] Ordering Physician: LEROY SANCHEZ MD [facility] Screening Digital - 06/16/23 - 1106 Report Status:Signed EXAM: [facility] Screening Digital EXAM DATE AND TIME: 06/16/2023 11:07 AM HISTORY: Annual screening COMPARISON: Multiple exams dating back to 2016 TECHNIQUE: Bilateral digital breast tomosynthesis was performed in the CCand MLO projections. Computer aided detection with [employer] 3D 3.1was employed. TISSUE DENSITY: b. [...] Most Recently Relevant to Health Maintenance Insurance [employer] [facility] MEDICARE ADVANTAGE MEDICAID - [place] Care Teams Book Critic Relationship Specialty Start Date End Date Leroy Sanchez MD [address] [place] [address] [address] RAN Suarez PCP - General Internal Medicine 11/27/11
--- OUTSIDE RECORDS SUMMARY | 2025-01-04 13:34 | XMS_ITS | Encounter Summary ---
Author Organization [facility] Address [address] [place] [address] Care Team Providers Care Proof Inspector Name Role Phone Consuelo Plaza MD Primary Care Provider Leroy Cevallos MD Primary Care Provider Leroy Garcia MD Primary Care Provider Leroy Garcia MD Unavailable Unavailable Pratibha Waggoner MD Unavailable Encounter Details Date Type Department Care Team Description 05/20/2017 Orders Only Medical Records [address] [place] [address] Swetha Aaron NP Social History Tobacco Use [...] on filedocumented in this encounter Care Teams Proof Inspector Relationship Specialty Start Date End Date Consuelo Plaza MD PCP - General Internal Medicine 05/18/17 04/20/18 Leroy Jauregui MD PCP - General Internal Medicine 04/21/18 11/10/21 Leroy Jauregui MD PCP - General Internal Medicine 11/11/21 Leroy Jauregui MD Internal Medicine 11/11/21 Pratibha Waggoner MD Lung Cancer Api Architect 12/28/22 documented as of this encounter
== END 2025-01-04 11:43 | disposition home or self-care (01) ==
LOC: HO.HPS 10:56
PROVIDERS: PCP Internal Medicine; Visit Provider Hospitalist
DX: C7A.090 Malignant carcinoid tumor of the bronchus and lung (principal); G89.12 Acute post-thoracotomy pain; R91.8 Other nonspecific abnormal finding of lung field; G47.33 Obstructive sleep apnea (adult) (pediatric); J41.1 Mucopurulent chronic bronchitis; K80.20 Calculus of gallbladder without cholecystitis without obstruction
CPT/HCPCS: 99214; G2211

== ENCOUNTER → 2025-01-04 10:55 | Outpatient (BNVA) | payer MEDICARE, MEDICAID, SELFPAY | PROVIDERS: PCP Internal Medicine; Visit Provider Hospitalist | DX: C7A.090 Malignant carcinoid tumor of the bronchus and lung (principal); J41.1 Mucopurulent chronic bronchitis; G47.33 Obstructive sleep apnea (adult) (pediatric); R91.8 Other nonspecific abnormal finding of lung field; G89.12 Acute post-thoracotomy pain | CPT/HCPCS: 99212 ==

== ENCOUNTER 2025-01-10 15:38 | Emergency (ER) | payer MEDICARE, MEDICAID, SELFPAY ==
--- OUTSIDE RECORDS SUMMARY | 2025-01-10 05:04 | XMS_ITS | Encounter Summary ---
Author Organization [facility] Address [address] [place] [address] Care Team Providers Care Tobacco Hanger Name Role Phone Leroy Jauregui MD Primary Care Provider [phone] Reason for Visit * Reason Comments Neck Pain Encounter Details Date Type Department Care Team (Late st Contact Info) Description 01/10/2025 5:04 AM EDT - 01/10/2025 8:[address] [facility] Emergency [address] [place] [phone] Alicia Cunningham MD [address] [place] [address] Cervical paraspinal muscle spasm (Primary Dx) Discharge Disposition: Home or Self Care Social History Tobacco Use Types Packs/Day Years Used Date Smoking Tobacco: Former Smokeless Tobacco: Never Alcohol Use Standard Drinks/Week Comments No 0 (1 standard drink = 0.6 oz pur e alcohol) Comments Unknown Sex and Gender Information Value Date Recorded Sex Assigned at Not on file Legal Sex Female 12:37 PM EST Gender Identity Not on file Sexual Orientation Not on file documented as of this encounter Last Filed Vital Signs Vital Sign Reading Time Taken Comments Blood Pressure 148/76 01/10/2025 5:04 AM EDT Pulse 68 01/10/2025 5:04 AM EDT Temperature 37 C (98.6 F) 01/10/2025 5:04 AM EDT Respiratory Rate 19 01/10/2025 5:04 AM EDT Oxygen Saturation 100% 01/10/2025 5:04 AM EDT Inhaled Oxygen Concentration - - Weight 95.3 kg (210 lb) 01/10/2025 4:54 AM EDT Height 160 cm (5' 3 ) 01/10/2025 4:54 AM EDT Body Mass Index 37.2 01/10/2025 4:54 AM EDT documented in this encounter Functional Status * Calculated C-SSRS Risk Score (Lifetime/Recent) Answer Date of Assessment Author No Risk Indicated 01/10/2025 4:55 AM EDT Jeff Cain RN * [place] Suicide Severity Rating Scale (Screener/Recent Self-Report) Question Answer Date of Assessment Author 1. Wish to be (Past 1 Month) No 025 4:55 AM EDT Jeff Cain RN 2. Non-Specific Active Suici patrick Thoughts (Past 1 Month) No 01/10/2025 4:55 AM EDT Alonso Cain RN 6. Suicidal Behavior (Lifetime) No 4:55 AM EDT Jeff Cain RN documented as of this encounter Discharge Instructions * Discharge Instructions* Alicia Cunningham MD - 01/10/2025 7:19 AM EDT Acudi?? al servicio de urgencias por dolor en el lado marcelino del cadence y la espalda, que se irradiaba al hombro y brazo izquierdos. Le realizaron osmel exploraci??n f??monster, la cual no revel?? nadapreocupante que requiriera north ingreso hospitalario hoy. Se le administraron varios analg??sicos y se sinti?? mejor. Dianna se coment??, se recomienda alternar entre Tylenol y Motrin cada 4 horas. Puedetomar hasta 1000 mg de Tylenol a la vez y no m??s de 4000 mg en 24 horas. Puede gwen hasta 800 mg de Motrin a la vez. Tambi??n se le recet?? Robaxin, un relajante muscular, y parches de lidoca??na. Dianna se coment??, Robaxin puede causar somnolencia, por lo que no debe tomarlo si va a conducir o realizar alguna actividad que requiera estar muy alerta. Suspenda la tizanidina; no puede combinarla con Robaxin. Dianna se coment??, el objetivo de la medicaci??n es que el dolor sea lo suficientemente tolerable dianna para que pueda estirarse y mantenerse activo. Los masajes, el calor y el fr??o tambi??n le ayudar??n. Por favor, consulte con north m??dico de cabecera en los pr??ximos d??as. Si presenta s??ntomas nuevos o si raffaele s??ntomas empeoran, acuda nuevamente al servicio de urgencias. You were seen in the emergency department for pain in the left side of your neck and back radiatingto your left shoulder and arm. You had an exam. This did not show anything worrisome that would require you to be admitted to the hospital today. You were treated with multiple medications for pain and felt better. As discussed, it is recommended that you alternate between Tylenol and Motrin every 4 hours. You can have up to 1000 mg of Tylenol at a time and no more than 4000 mg in 24 hours. You can have up to 800 mg of Motrin at a time. You are also prescribed Robaxin, a muscle relaxer, and lidocaine patches. As discussed, Robaxin can make you sleepy so you cannot take this if you are going to be driving or doing anything that requires you to be very alert. STOP TIZANIDINE, you cannot mix this with robaxin. As discussed, the goal of the medication is to make the pain tolerable enough thatyou can stretch and be active. Massage, heat, ice will also help. Please follow-up with your primary care physician within the next few days. Please return to the emergency department any new or worsening symptoms. * Attachments The following attachments cannot be sent through Care Everywhere. * Cervical Spasm: Exercises (Cuban) * Neck Spasm (Cuban) * Upper Back: Exercises (Cuban) * Back: Stretches: Exercises (Cuban) * Shoulder Stretches: Exercises (Cuban) documented in this encounter Medications at Time of Discharge albuterol HFA (PROAIR HFA ; PROVENTIL HFA ; VENTOLIN HFA) 90 mcg/actuation inhaler Inhale 2 Puffs into the lungs every 4 hours as needed for Wheezing for up to 90 days. 08/02/2018 alcohol swabs pads, medicated 1 PAD TOPICAL TIA VECES AL D A 03/04/2020 amitriptyline (ELAVIL) 25 mg tablet TOME OSMEL TABLETA POR V A ORAL AL ACOSTARSE 03/17/2020 amoxicillin-clav ulanate (AUGMENTIN) 875-125 mg per tablet 03/29/2020 aspirin 81 mg EC tablet Take 1 tablet (81 mg total) by mouth 1 (one) time each day. atorvastatin (LIPITOR) 40 mg tablet TOME OSMEL TABLETA RASHIDA Burch 03/17/2020 azithromycin (ZITHROMAX) 250 mg tablet 1 TABLET BY MOUTH Wednesday AND Wednesday09/16/2017 blood sugar diagnostic (FreeStyle Lite Strips) test strip 1 Strip 3 times daily. 03/18/2020 clotrimazole-bet amethasone (LOTRISONE) 1-0.05 % cream Apply topically to affected area twice daily for no more than 10 days 04/24/2019 dexlansoprazole (DEXILANT) [address] capsule Take by mouth. DULoxetine (CYMBALTA) [address] capsule TAKE 60 MG POR V A ORAL DAILY 03/07/2020 etodolac (LODINE) 400 mg tablet Take 1 tablet (400 mg total) by mouth 2 (two) times a day. FLUoxetine (PROzac) 10 mg capsule TOME OSMEL C PSULA RASHIDA NORMAN D 03/20/2020 FLUoxetine (PROzac) 10 mg tablet Take 1 tablet (10 mg total) by mouth 1 (one) time each day. fluticasone propionate (FLONASE) 50 mcg/actuation nasal spray Administer 2 sprays into each nostril 1 (one) time each day. fluticasone propionate (FLOVENT HFA INHL) gabapentin (NEURONTIN) 800 mg tablet Take 1 tablet (800 mg total) by mouth at bedtime. hydroCHLOROthiaz jacque (HYDRODIURIL) 25 mg tablet Take 1 tablet (25 mg total) by mouth 1 (one) time each day. ibuprofen (ADVIL,MOTRIN) 800 mg tablet PLEASE SEE ATTACHED FOR DETAILED DIRECTIONS 03/21/2020 lidocaine (LIDODERM) 5 % patch Apply 1 patch topically 1 (one) time each day. Remove & discard patch within 12 hours or as directed by . 30 each 01/10/2025 5 liraglutide (Victoza 2-Zeus) 0.6 mg/0.1 mL (18 mg/3 mL) injection Inject 1.8 mg under the skin 1 (one) time each day. 03/09/2020 loratadine (CLARITIN) 10 mg tablet TOME OSMEL TABLETA RASHIDA Burch CUANDO SEA NECESARIO 03/25/2020 LORazepam (ATIVAN) 0.5 mg tablet Take 1 tablet (0.5 mg total) by mouth every 6 (six) hours if needed. LORazepam (ATIVAN) 1 mg tablet TAKE 1 TABLET BY MOUTH AT NIGHT NEEDED AND 1/2 IN THE DAY NEEDED 03/20/2020 losartan (COZAAR) 25 mg tablet Take 1 tablet (25 mg total) by mouth 1 (one) time each day. 100mg metFORMIN (GLUCOPHAGE) 500 mg tablet TOME OSMEL TABLETRona BENITEZ AL D A 03/21/2020 metFORMIN XR (GLUCOPHAGE-XR) 750 mg 24 hr tablet Take 1 tablet (750 mg total) by mouth 2 (two) times a day. 500mg - Oral methocarbamoL (ROBAXIN) 500 mg tablet Take 2 tablets (1,000 mg total) by mouth 2 (two) times a day if needed for muscle spasms for up to 14 days. 28 tablet 01/10/2025 5 metoprolol succinate (TOPROL-XL) 50 mg 24 hr tablet TOME OSMEL TABLETA RASHIDA Burch 03/25/2020 metoprolol tartrate (LOPRESSOR) 50 mg tablet Take 1 tablet (50 mg total) by mouth 1 (one) time each day. montelukast (SINGULAIR) 10 mg tablet nystatin (MYCOSTATIN) ointment Apply to affected twice a day for 10 days 05/01/2021 oxaprozin (DAYPRO) 600 mg tablet Take 1,200 mg by mouth 1 (one) time each day. predniSONE (DELTASONE) 10 mg tablet 03/29/2020 pregabalin (LYRICA) 100 mg capsule Take 1 capsule (100 mg total) by mouth 3 (three) times a day. sertraline (ZOLOFT) 100 mg tablet TOME OSMEL TABLETA TODOS LOS D 03/18/2020 simvastatin (ZOCOR) 40 mg tablet Take 1 tablet (40 mg total) by mouth at bedtime. traMADoL (ULTRAM) 50 mg tablet Take 1 tablet (50 mg total) by mouth every 6 (six) hours if needed. valsartan (DIOVAN) 320 mg tablet TAKE 320 MG POR V A ORAL DAILY 03/11/2020 documented as of this encounter Ordered Prescriptions Prescription Sig Dispense Quantity Refills Last Filled Start Date End Date lidocaine (LIDODERM) 5 % patch Apply 1 patch topically 1 (one) time each day. Remove & discard patch within 12 hours or as directed by . 30 each 01/10/2025 5 methocarbamoL (ROBAXIN) 500 mg tablet Take 2 tablets (1,000 mg total) by mouth 2 (two) times a day if needed for muscle spasms for up to 14 days. 28 tablet 01/10/2025 5 documented in this encounter Discharge Disposition Disposition Code Departure Means Destination Comment s Home or Self Care documented in this encounter Progress Notes * Jeff Cain RN - 01/10/2025 4:53 AM EDT BIBA from home for 1 week of arthritis pain in the neck that radiates into left shoulder per EMS.Pt reported to EMS same arthritis pain as usual, however pain has been getting worse. GCS 15. * Alicia Cunningham MD - 01/10/2025 4:44 AM EDT Images from the original note were not included. HPI Chief Complaint Patient presents with Neck Pain Patient with history, per thoracic surgery note 02/21/2024, seen in follow-up of lung nodule and right-sided chest pain, hx of right middle lobectomy 2017 presents reporting that she has arthritis in her neck, her symptoms had improved but then returned yesterday, is in the left side of her neck, radiates to her shoulder and arm, also some pain in her left upper back. She states she has been taking tizanidine daily for years which is not helping, has not been taking Tylenol or NSAIDs because shethought she could not mix this with tizanidine. Patient denies headache, cold or flu symptoms, chest pain, shortness of breath, abdominal pain, nausea, vomiting, weakness, numbness, difficulty walking. History provided by: Medical records and patient algology teacher used: No Estefany Coma Scale Score: 15 Patient History Medical History[1] Surgical History[2] Family History[3] Social History Tobacco Use Smoking status: Former Smokeless tobacco: Never Substance Use Topics Alcohol use: No Drug use: No Review of Systems Review of Systems Physical Exam ED Triage Vitals [01/10/25 0504] Temp Heart Rate Resp BP 37 ??C (98.6 ??F) 68 19 (!) 148/76 SpO2 Temp Source Heart Rate Source Patient Position 100 % Oral Monitor Lying BP Location FiO2 (%) Left arm -- Physical Exam Vitals and nursing note reviewed. Constitutional: General: She is not in acute distress. Appearance: Normal appearance. She is not ill-appearing. Neck: Cardiovascular: Rate and Rhythm: Normal rate and regular rhythm. Heart sounds: Normal heart sounds. Pulmonary: Effort: Pulmonary effort is normal. Breath sounds: Normal breath sounds. Abdominal: Palpations: Abdomen is soft. Tenderness: There is no abdominal tenderness. Musculoskeletal: Cervical back: Muscular tenderness present. No spinous process tenderness. Neurological: Mental Status: She is alert. Sensory: Sensation is intact. Motor: Motor function is intact. ED Course & MDM Medical Decision Making Ddx: Muscle spasm, strain, sprain, unlikely spinal or spinal cord pathology Patient is well-appearing with vitals WNL on RA on arrival and normal cardiopulmonary and abdominalexams, TTP throughout left side of neck, no bony pain in left shoulder or elbow, extremities with intact strength and sensation. Will treat with multimodal analgesia. Did consider neck imaging given cancer history however she has no bony tenderness, no trauma, very tight muscles in left side of neck and shoulder, do not feel this is indicated at this time. Discussed plan. Amount and/or Complexity of Data Reviewed External Data Reviewed: notes. Risk OTC drugs. Prescription drug management. ED Course as of 01/10/25 0858 WedJan 10, 2025 0714 Patient updated and re-evaluated, she states that she feels better. She would like to use Robaxin instead of tizanidine. Discussed home care, importance of stretching and massage, showed her examples of stretching, will give her paperwork with same. Patient was discharged with home care instructions, outpatient follow-up plan, prescriptions for Robaxin and lidocaine patches, and return precautions. [RG] ED Course User Index [RG] Alicia Cunningham MD Clinical Impressions as of 01/10/25 0858 Cervical paraspinal muscle spasm Procedures Alicia Cunningham MD 01/10/25 0553 [1] Past Medical History: Diagnosis Date Anxiety 04/04/2012 DX:Anxiety Arthritis DX:Arthritis Depression 04/04/2012 DX:Depression DM2 (diabetes mellitus, type 2) ([facility] V24, [facility] V28) 04/04/2012 DX:DM2 (diabetes mellitus, type 2) ([facility]) Emphysema lung (CMS/[facility] V24, CMS/[facility] V28) DX:Emphysema lung ([facility]) Fibromyalgia DX:Fibromyalgia Historical Medical DX 04/04/2012 DX:Hyperlipidemia LDL goal < 70 Hypertension 04/04/2012 DX:Hypertension LBBB (left bundle branch block) 04/04/2012 DX:LBBB (left bundle branch block) Lumbar disc disease 04/04/2012 DX:Lumbar disc disease Obesity 04/04/2012 DX:Obesity [2] Past Surgical History: Procedure Laterality Date OTHER SURGICAL HISTORY 2016 PROCEDURE: LUNG BIOPSY THROUGH CHEST WALL TUBAL LIGATION PROCEDURE: HISTORICAL TUBAL LIGATION [3] Family History Problem Relation Name Age of Onset Coronary artery disease Other family members, no early cad Alicia Cunningham MD 01/10/25 0900 documented in this encounter Miscellaneous Notes * ED Bed Hold Note - Scarlett Maxwell RN - 01/10/2025 5:04 AM EDT Bed: YW-18 Expected date: Expected time: Means of arrival: Comments: EMS arthritic pain documented in this encounter Plan of Treatment Upcoming Encounters Date Type Department Care Team (Late st Contact Info) Description 02/15/2025 10:00 AM EST Consult Orthopedic Surgery - [place] [address] [address] Evangelista Reddy DPM [address] [place] [phone] documented as of this encounter Visit Diagnoses Diagnosis Cervical paraspinal muscle spasm- Primary Spasm of muscle documented in this encounter Administered Medications Inactive Administered Medications - up to 3 most recent administrations Medication Order MAR Action Action Date Dose Rate Site acetaminophen (TYLENOL) tablet 1,000 mg 1,000 mg, oral, Once, On Wed01/10/25 at 0524, For 1 dose Given 01/10/2025 5:48 AM EDT 1,000 mg ketorolac (TORADOL) injection 15 mg 15 mg, intramuscular, Once, On Wed01/10/25 at 0524, For 1 dose Given 01/10/2025 5:47 AM EDT 15 mg Right Deltoid lidocaine 4 % patch 1 patch 1 patch, Topical, Administer over 12 Hours, Once, On Wed01/10/25 at 0524, For 1 dose, Apply to left neck. Patch Applied 01/10/2025 5:47 AM EDT 1 patch Other methocarbamoL (ROBAXIN) tablet 1,500 mg 1,500 mg, oral, Once, On Wed01/10/25 at 0524, For 1 dose Given 01/10/2025 5:47 AM EDT 1,500 mg documented in this encounter Active and Recently Administered Medications Times are shown in EDT. Scheduled Medication Order 01/08/2025 01/09/2025 01/10/2025 acetaminophen (TYLENOL) tablet 1,000 mg (COMPLETED) 1,000 mg, oral, Once, On Wed01/10/25 at 0524, For 1 dose 0548 (Given - Provid er: Jeff Cain RN) ketorolac (TORADOL) injection 15 mg (COMPLETED) 15 mg, intramuscular, Once, On Wed01/10/25 at 0524, For 1 dose 0547 (Given - Provid er: Jeff Cain RN) lidocaine 4 % patch 1 patch 1 patch, Topical, Administer over 12 Hours, Once, On Wed01/10/25 at 0524, For 1 dose, Apply to left neck. 0547 (Patch Applied - Provider: Jeff Cain RN - Comment: neck)0810 (Due: Patch Removed - Provider: Automatic Discharge Provider - Comment: Time automatically adjusted from order being discontinued) methocarbamoL (ROBAXIN) tablet 1,500 mg (COMPLETED) 1,500 mg, oral, Once, On Wed01/10/25 at 0524, For 1 dose 0547 (Given - Provid er: Jeff Cain RN) documented in this encounter Care Teams Tobacco Hanger Relationship Specialty Start Date End Date Leroy Jauregui MD [address] [place] [address] [address] RAN Suarez PCP - General Internal Medicine 11/27/11 documented as of this encounter
[2025-01-10 15:49] VITALS: BP 178/73; PULSE 76; RESP 20; TEMP 36.2; O2SAT 96; BMI 42.1
--- NOTE | 2025-01-10 15:52 | ED_ITS ---
HPI - General Adult General Chief complaint: Neck Pain/Injury Stated complaint: Neck/back pain Time Seen by Provider: 01/10/25 17:25 Source: patient Mode of arrival: ambulatory Limitations: no limitations History of Present Illness ED Provider: Dr. Jorge Pineda HPI narrative: 69-year-old female with a history diabetes mellitus, gastroparesis, GERD, hyperlipidemia, asthma, depression, anxiety, fibromyalgia who presents emergency department for evaluation of severe left neck pain with spasm. Patient states that the pain started yesterday morning when she woke up from sleep. She points to her left trapezius when asked to localize the pain. She states that the pain is a sharp constant pain which is 10/10, the pain is worse if she turns her head to the left. She denies any numbness or weakness of her upper extremity. The pain does not radiate down her left arm. The patient denied fever or chills. She states she had a cough last week and was started on antibiotics but did not complete the course of antibiotics. She denied nausea, vomiting, loss of bowel or bladder control. Patient states she was seen at [facility] this morning at 03:00 hours. She was given a shot of medication and her tizanidine was stopped and she was started on Robaxin (carbamazepine) 1000 mg b.i.d.. She states she took the medication today with no relief for pain. She is currently complaining of 10/10 left-sided neck pain. Related Data Home Medications ?Medication ?Instructions ?Recorded ?Confirmed furosemide 20 mg tablet 20 mg PO DAILY 01/27/2311/13 nebulizers 03/25/23 11/22/24 memantine 10 mg tablet 10 mg PO BID 03/02/24 albuterol sulfate 2.5 mg/3 mL 2.5 mg continuous nebuli zation 04/14/24 11/22/24 (0.083 %) solution for nebulization Q4-6H PRN shortnes s of breath or wheezing sertraline 25 mg tablet mg PO 09/13/24 11/22/24 amlodipine 5 mg tablet 5 mg PO DAILY 11/07/2411/22 ensifentrine 3 mg/2.5 mL inhalation 11/23/24 suspension for nebulization (Ohtuvayre) Previous Rx's ?Medication ?Instructions ?Recorded LIGHTWEIGHT WALKER WITH SEAT #1 ea 09/05/20 nystatin 100,000 unit/gram topical 1 appl topical TID #30 grams 10/04/20 powder ROLLATOR with SEAT #1 ea 03/03/21 alcohol swabs 1 pad topical TID #100 pad 1 05/05/20 blood pressure monitor #1 ea 09/12/21 FOUR-PRONGED CANE #1 ea 08/06/22 blood-glucose meter #1 ea 08/07/22 glucose 4 gram chewable tablet 12 g (3 x 4 gram) PO Q1 5M for 10/05/22 hypoglycemia #60 tabs Shower Chair #1 ea 11/24/22 fluticasone propionate 220 1 puff PO BID #12 ea mcg/actuation HFA aerosol inhaler (Flovent HFA) cholecalciferol (vitamin D3) 50 50 mcg PO DAILY 90 day s #90 caps 12/14/22 mcg (2,000 unit) capsule valacyclovir 500 mg tablet 500 mg PO BID #14 tabs 12/13 DISPOSABLE WIPES #100 ea 02/22/23 flash glucose scanning reader #1 ea 04/13/23 (FreeStyle Mary Ann 2 [place]) flash glucose sensor (FreeStyle #2 ea 04/13/23 Mary Ann 2 Sensor kit) sertraline 50 mg tablet 50 mg PO DAILY #30 tabs 05/13 05/08 umeclidinium 62.5 mcg-vilanterol 1 inh inhalation LINDA Y #60 ea 06/01/23 25 mcg/actuation powdr for inhalation (Anoro Ellipta) loratadine 10 mg tablet 10 mg PO DAILY PRN allergy 0 07/09/23 symptoms 90 days #90 tabs cyanocobalamin (vitamin B-12) 1,000 mcg PO DAILY 90 da ys #90 tabs 07/12/23 1,000 mcg tablet famotidine 40 mg tablet 40 mg PO BEDTIME GERD 15 day s #15 07/29/23 tabs hydrocortisone 2.5 % topical cream 1 appl topical BID PRN skin 08/27/23 irritation/rash/itching #30 grams aspirin 81 mg tablet,delayed 81 mg PO DAILY 90 days #9 0 tabs 10/13/23 release hydrocortisone 2.5 % topical cream 1 appl [place] BID hemor rhoids #30 grams 11/16/23 with perineal applicator (Proctosol HC) atorvastatin 40 mg tablet 40 mg PO DAILY #90 tabs 11/13 05/08 fluticasone propionate 50 2 spray intranasal DAILY 30 days 12/09/23 mcg/actuation nasal #48 mL spray,suspension roflumilast 500 mcg tablet 500 mcg PO DAILY 30 days #3 0 tabs 12/23/23 (Daliresp) psyllium husk 3.4 gram/5.4 gram 1 tbsp PO BID #660 gra ms 03/01/24 oral powder (Metamucil) lidocaine 5 % topical patch 1 patch topical DAILY 30 d ays #30 04/28/24 (Lidoderm) ea dextromethorphan HBr 15 mg capsule 30 mg (2 x 15 mg) P O Q8H PRN cough 05/19/24 30 days #90 caps dexlansoprazole 60 mg 60 mg PO DAILY #90 caps 05/13 10/06 capsule,biphase delayed release tiotropium 2.5 mcg-olodaterol 2.5 2 puff inhalation DA JD #4 grams 05/30/24 mcg/actuation mist for inhalation (Stiolto Respimat) blood-glucose meter (OneTouch #1 ea 06/14/24 Verio Flex Meter) blood sugar diagnostic (OneTouch #100 ea 06/16/24 Verio test strips) diclofenac sodium 1 % topical gel 2 g topical QID PRN pain #100 grams 07/14/24 (Arthritis Pain (diclofenac)) clotrimazole-betamethasone 1 1 appl topical BID PRN fu ngal rash 07/18/24 %-0.05 % topical cream 7 days #45 grams ipratropium 0.5 mg-albuterol 3 mg 3 ml inhalation QID PRN shortness 08/10/24 (2.5 mg base)/3 mL nebulization of breath #180 mL soln montelukast 10 mg tablet 10 mg PO BEDTIME #90 tabs albuterol sulfate 90 mcg/actuation 2 puff inhalation Q ID PRN 08/28/24 aerosol inhaler bronchospasm #8.5 grams lorazepam 1 mg tablet 1 mg PO BID-TID PRN anxiety 30 09/07/24 days #45 tabs bisacodyl 5 mg tablet,delayed 10 mg (2 x 5 mg) PO BEDT BRITTANY 2 days 09/13/24 release (Dulcolax (bisacodyl)) #4 tabs sodium,potassium,mag sulfates 17.5 480 ml PO .COMPLEX #354 mL 09/13/24 gram-3.13 gram-1.6 gram oral soln (Suprep Bowel Prep Kit) linaclotide 72 mcg capsule 72 mcg PO QAM #30 caps 09/13 07/07 (Linzess) metoprolol succinate 50 mg 50 mg PO DAILY #90 tabs 10/06 tablet,extended release 24 hr lancets 30 gauge (OneTouch Delica #100 ea 10/23/24 Plus Lancet) DISPOSABLE WIPES #100 ea 10/24/24 blood-glucose sensor (FreeStyle #2 ea 10/30/24 Mary Ann 3 Plus Sensor device) blood-glucose,golf club assembler,cont #1 ea 10/30/24 (FreeStyle Mary Ann 3 [place]) metformin 500 mg tablet 500 mg PO DAILY #90 tabs tizanidine 4 mg tablet 4 mg PO TID PRN muscle spast icity 11/02/24 #90 tabs tramadol 50 mg tablet 50 mg PO TID PRN pain 30 day s #90 11/15/24 tabs ammonium lactate 12 % topical cream 1 appl topical JUSTICE LY #140 grams 11/21/24 azithromycin 250 mg tablet See Rx Instructions PO .COM PLEX #6 11/22/24 tabs hydrochlorothiazide 25 mg tablet 25 mg PO DAILY 90 day s #90 tabs 11/22/24 sennosides 8.6 mg tablet (Senna 17.2 mg (2 x 8.6 mg) P O BEDTIME 30 11/23/24 Laxative) days #60 tabs ibuprofen 800 mg tablet 800 mg PO TID PRN for pain # 90 tabs 11/26/24 metoclopramide HCl 10 mg tablet 10 mg PO .tidac #90 ta bs 11/28/24 (Reglan) Bed assist bar #1 ea 11/29/24 Pull ups #300 ea 11/29/24 valsartan 320 mg tablet 320 mg PO DAILY #90 tabs amitriptyline 25 mg tablet 25 mg PO BEDTIME 90 days #9 0 tabs 12/05/24 dulaglutide 0.75 mg/0.5 mL 0.75 mg (0.5 mL) subcut QWE EK #2 mL 12/13/24 [facility] dicyclomine 20 mg tablet 20 mg PO QID #360 tabs 12/14 pregabalin 200 mg capsule 200 mg PO Q8H 30 days #90 ca ps 12/14/24 prednisone 20 mg tablet See Rx Instructions PO DAILY 10 12/27/24 days #15 tabs codeine 10 mg-guaifenesin 100 mg/5 10 ml PO Q6H PRN co ugh 10 days 01/04/25 mL oral liquid #300 mL doxycycline monohydrate 100 mg 100 mg PO BID 14 days # 28 tabs 01/04/25 tablet ibuprofen 400 mg tablet 400 mg PO Q6H PRN fever or p ain 01/10/25 #30 tabs morphine 15 mg immediate release 15 mg PO Q6H PRN pain #14 tabs 01/10/25 tablet Allergies Allergy/AdvReac Type Severity Reaction Status Date / Time penicillin G Allergy Severe Itching Verified 01/10/25 15:55 latex Allergy Intermediate Itching Verified 01/10/25 15:55 nitrofurantoin Allergy Intermediate itching Verified 01/10/25 15:55 and redness (in the legs) Review of Systems Review of Systems: Yes all other systems are reviewed and are negative [facility] Past Medical History [facility] Narrative: Social history: She denies tobacco, alcohol and drug use Medical History (Updated 01/11/25 @ 00:01 by Background Daemshai) Status post fall Elevated LFTs Pre-op examination Medicare annual wellness visit, subsequent Cyanosis of skin Respiratory tract infection Weakness of left upper extremity Left leg pain Myofascial muscle pain Bilateral knee pain Left hip pain Back pain Joint pain in both hands Osteoarthritis Encounter for well woman exam with routine gynecological exam Vulvar itching Stress incontinence Medicare annual wellness visit, subsequent Otitis media of right ear Sore throat Upper respiratory tract infection URI, acute Frequent fecal incontinence Stool incontinence Right sided abdominal pain Frozen shoulder Chest pain Calcific tendinitis of left shoulder Weakness of both lower extremities Joint pain in fingers of both hands Vitamin B12 deficiency Bilateral ankle pain Rash Right foot pain Cervical cancer screening Bronchopneumonia Chronic low back pain Bilateral foot pain Bilateral hip pain Annual physical exam Hyperlipidemia LDL goal <70 Bilateral hip pain Fibromyalgia Chronic bronchitis Vitamin D deficiency Post-thoracotomy pain syndrome COPD (chronic obstructive pulmonary disease) Depression Anxiety Type 2 diabetes mellitus with diabetic polyneuropathy Pulmonary nodules Allergic rhinitis GERD (gastroesophageal reflux disease) Morbid obesity with BMI of 40.0-44.9, adult Asthma Obstructive sleep apnea Lumbar degenerative disc disease Carcinoid tumor Coronary artery disease Benign essential hypertension Type 2 diabetes mellitus with hyperglycemia, with long-term current use of insulin Surgical History History of rectal sphincterotomy (~11/2013) History of colonoscopy (~12/2013) History of tubal ligation History of lung biopsy (~07/2016) History of esophagogastroduodenoscopy (EGD) (~10/2011) History of lobectomy of lung (~08/2016) History of cardiac cath (~07/2018) Family History Family History Father Stroke Hypertension Diabetes Mother Diabetes Hypertension Other Arthritis Lupus Social History Social History Household Members: Spouse Housing: Apartment Alcohol intake: never Patient Tobacco Use Status: Former Tobacco user Tobacco use type: Cigarette Smoked in Last 30 Days: No e-Cigarette/Vaping Use: Never Used Second Hand Smoke Exposure: Yes Use of substances other than those prescribed or required for medical reasons: No Advance Directives: No Advance Directives Information Provided: No service: No Current occupational status: disabled Cognitive needs: No Hearing needs: No Vision needs: Yes Physical Exam ED Vital Signs: Vital Signs - 24 hr 01/10/25 17:31 01/10/25 19:53 Temperature 98.2 F 98.2 F Pulse Rate 75 81 Respiratory Rate 18 16 Blood Pressure 166/74 H 156/72 H Pulse Oximetry 99 96 Oxygen Delivery Method Room Air Room Air BMI result Body Mass Index 42.1 Vital signs revealed an elevated blood pressure of 178/73 otherwise unremarkable. Exam: General: Awake, unable to sit up on the stretcher secondary to severity of her left neck pain, when she is at rest she appears comfortable. Head: Normocephalic, atraumatic Neck: Patient has very localized tenderness with palpation of her mid trapezius muscle in the left with spasm and a trigger point in the middle of the area of spasm. Patient can not rotate her head past the midline on the left but can rotate her head to the right. No erythema or increased warmth noted. Neuro: Awake, alert, oriented, normal speech, cranial nerves 2-12 intact, moves all extremities symmetrically Psych: Pleasant, cooperative Course Course Course Narrative: 69 yo F history of DM, HTN presenting to ED for left sided neck pain. She was seen at [facility] given an injection and muscle relaxer. However it is not helping. Appears to be left sided torticollis. Rapid medical screening exam was performed. Patient stable at time of evaluation. Mary Kate Leonard, DO 01/10/25 1554 Medications Administered Discontinued Medications Generic Name Dose Route Start Last Admin Trade Name Freq PRN Reason Stop Dose Admin Acetaminophen 975 mg 01/10/25 15:58 01/10/25 17:25 Acetaminophen 325 Mg Tablet PO 01/10/25 15:59 975 mg ONCE ONE Administration Diazepam 5 mg 01/10/25 17:14 01/10/25 17:25 Diazepam 5 Mg Tablet PO 01/10/25 17:15 5 mg ONCE ONE Administration Ketorolac Tromethamine 60 mg 01/10/25 17:54 01/10/25 18:09 Ketorolac Tromethamine 60 Mg/2 Ml Vial IM 01/10/25 17:55 60 mg ONCE ONE Administration Lidocaine 1 patch 01/10/25 15:57 01/10/25 17:26 Lidocaine 4 % Patch Adh..Patch TRANSDERMA 01/10/25 15:58 1 patch ONCE ONE Administration Protocol Lidocaine HCl 5 ml 01/10/25 18:01 01/10/25 18:10 Lidocaine Hcl 1 % Mpf 5 Ml Vial INFILTRATI 01/10/25 18:02 5 ml ONCE ONE Administration Morphine Sulfate 15 mg 01/10/25 19:18 01/10/25 19:44 Morphine Sulfate Immed Release 15 Mg Tablet PO 01/10/25 19:19 15 mg ONCE ONE Administration Procedures Procedure Narrative Procedure Narrative: Left trapezius trigger point injection: The patient gave me informed verbal consent to proceed with the trigger point injection. The area of maximal pain in the patient's left cervical trapezius muscle was located, skin was prepped with 3 alcohol wipes, using a 25 gauge needle I injected 3 cc around the trigger point site. Patient did get some relief of her pain and spasm from the injection. There were no complications. Medical Decision Making Medical Decision Making [facility] Narrative: 69-year-old female with a history diabetes mellitus, gastroparesis, GERD, hyperlipidemia, asthma, depression, anxiety, fibromyalgia who presents to the emergency department for evaluation of severe left neck pain with spasm. P leonardo states that the pain started yesterday morning when she woke up from sleep. She does not recall any injury. She points to her left trapezius muscle when asked to localize the pain. She states that the pain is a sharp constant pain which is 10/10, the pain is worse if she turns her head to the left. She denies any numbness or weakness of her upper extremity. The pain does not radiate down her left arm. The patient denied fever or chills. She states she had a cough last week and was started on antibiotics but did not complete the course of antibiotics. She denied nausea, vomiting, loss of bowel or bladder control. She was seen this morning at 03:00 hours at [facility], treated with an IM medications, advised to stop her tizanidine into start Robaxin 1000 mg b.i.d.. She took Robaxin today with no relief for pain therefore she came in the emergency department for re-evaluation. She is currently having 10/10 left-sided neck pain. Vital signs revealed an elevated blood pressure. Exam revealed spasm of the left trapezius muscle with a trigger point, inability to rotate her head to the left secondary to pain with a normal neurologic exam Differential diagnosis: ?Includes but is not limited to left trapezius sprain, left trapezius spasm, cervical disc disease nerve impingement Course: 18:01 The patient was ordered to get Tylenol 975 mg, lidocaine patch 4% and Valium 5 mg orally from triage. I ordered Toradol 60 mg IM. 19:27 Patient's pain did improve after receiving IM Toradol. Patient's trigger point was injected with 1% lidocaine x3 cc with further improvement of her discomfort. The patient was discharged home and advised to take ibuprofen and Tylenol for pain and for pain not relieved by these medications she was prescribed morphine 15 mg every 6 hours as needed for pain. Patient was advised to take the Robaxin as prescribed by the [facility] provider to see if this in proves for spasm. She was also advised to apply ice for 15 minutes 4 to 6 times a day to help reduce the pain and spasm. She was given printed and verbal instructions and discharged home. I did discuss the treatment plan with the patient's grandchildren who were with her in the emergency department. Differential Diagnosis Differential Diagnoses: The differential diagnosis associated with the presentation includes (See above) Admission/Observation Consideration of admission/observation: Escalation of care including admission/observation considered (No) Independent Historian Clinical information obtained from an independent historian. History obtained from or confirmed by: Other (Grandchildren) Prescription Management I considered prescription management with: Pain Medication (Ibuprofen and morphi ne) Chronic Conditions Patient?s care impacted by: Diabetes and Other (Hyperlipidemia) Discharge Plan Discharge Clinical Impression: Strain of cervical portion of left trapezius muscle, Muscle spasm, Strain of neck muscle Patient Disposition: Home, Self-Care Additional Instructions: Your exam is consistent with muscle strain/spasm of the trapezius muscle on the left side of your neck. I injected lidocaine into the area that was most tender (trigger point) this will hopefully help reduce the pain in this area Stopped taking ibuprofen 800 mg pills. This is too high of a dose. Ibuprofen 400 mg 3 times a day is just as effective as 800 mg and has less side effects. Take ibuprofen 400 mg pills, 1 pills every 6 hours as needed for pain. Take your arthritis strength Tylenol as directed on the bottle. For pain not relieved by ibuprofen or Tylenol take morphine 15 mg pills, 1 pill every 6 hours as needed for pain. This medication will make you sleepy, do not drive or work while taking this medication. Morphine is a narcotic medication and can be addicting. If you are concerned about addiction you can ask the pharmacist for less pills or do not get this prescription filled. Continue taking Robaxin ( methocarbamol) 500 mg pills, 2 pills twice a day as prescribed by the provider at [facility]. While your taking Robaxin stop taking tizanidine since this is also muscle relaxant. Apply ice for 15 minutes 4 to 6 times a day to help reduce the pain and spasm in your neck muscles. Follow-up with your doctor in 2 days. Please return to the emergency department if your symptoms get worse or if you develop any symptoms that are concerning to you. Prescriptions: New ibuprofen 400 mg tablet 400 mg PO Q6H PRN (Reason: fever or pain) Qty: 30 0RF morphine 15 mg tablet 15 mg PO Q6H PRN (Reason: pain) Qty: 14 0RF Rx Instructions: Partial Fill upon patient request. No Action (DME) LIGHTWEIGHT WALKER WITH SEAT See Rx Instructions .Route .MEDSUPPLY Qty: 1 0RF Rx Instructions: walker with seat nystatin 100,000 unit/gram powder 1 appl topical TID Qty: 30 3RF (DME) ROLLATOR with SEAT See Rx Instructions .Route .MEDSUPPLY Qty: 1 0RF Rx Instructions: As directed alcohol swabs Pads, Medicated 1 pad topical TID Qty: 100 2RF (DME) blood-glucose meter Misc See Rx Instructions .ROUTE .MEDSUPPLY Qty: 1 0RF Rx Instructions: Three times a day glucose 4 gram tablet,chewable 12 g PO Q15M Qty: 60 2RF (DME) Shower Chair Misc See Rx Instructions .Route Qty: 1 0RF Rx Instructions: As directed Flovent HFA 220 mcg/actuation HFA aerosol inhaler 1 puff PO BID Qty: 12 5RF cholecalciferol (vitamin D3) 50 mcg (2,000 unit) capsule 50 mcg PO DAILY 90 Days Qty: 90 3RF (DME) DISPOSABLE WIPES See Rx Instructions .Route .MEDSUPPLY Qty: 100 12RF Rx Instructions: As directed sertraline 50 mg tablet 50 mg PO DAILY Qty: 30 1RF Anoro Ellipta 62.5-25 mcg/actuation blister with device 1 inh inhalation DAILY Qty: 60 6RF cyanocobalamin (vitamin B-12) 1,000 mcg tablet 1,000 mcg PO DAILY 90 Days Qty: 90 1RF hydrocortisone 2.5 % cream 1 appl topical BID PRN (Reason: skin irritation/rash/itching) Qty: 30 0RF aspirin 81 mg tablet,delayed release (DR/EC) 81 mg PO DAILY 90 Days Qty: 90 3RF atorvastatin 40 mg tablet 40 mg PO DAILY Qty: 90 3RF fluticasone propionate 50 mcg/actuation spray,suspension 2 spray intranasal DAILY 30 Days Qty: 48 10RF lidocaine [Lidoderm] 5 % adhesive patch,medicated 1 patch topical DAILY 30 Days Qty: 30 3RF Rx Instructions: leave on most painful area for up to 12 hrs dextromethorphan HBr 15 mg capsule 30 mg PO Q8H PRN (Reason: cough) 30 Days Qty: 90 6RF dexlansoprazole 60 mg capsule,biphase delayed releas 60 mg PO DAILY Qty: 90 1RF Stiolto Respimat 2.5-2.5 mcg/actuation mist 2 puff inhalation DAILY Qty: 4 11RF (DME) blood-glucose meter [SkyPhraseTouch Verio Flex meter] Misc See Rx Instructions .Route Qty: 1 0RF Rx Instructions: As directed trsts 4 X/day (DME) OneTouch Verio test strips Strip See Rx Instructions .ROUTE .MEDSUPPLY Qty: 100 11RF Rx Instructions: Three times a day diclofenac sodium [Arthritis Pain (diclofenac)] 1 % gel 2 g topical QID PRN (Reason: pain) Qty: 100 0RF clotrimazole-betamethasone 1-0.05 % cream 1 appl topical BID PRN (Reason: fungal rash) 7 Days Qty: 45 1RF Rx Instructions: apply for itch as needed ipratropium-albuterol 0.5 mg-3 mg(2.5 mg base)/3 mL solution for nebulization 3 ml inhalation QID PRN (Reason: shortness of breath) Qty: 180 5RF montelukast 10 mg tablet 10 mg PO BEDTIME Qty: 90 1RF Linzess 72 mcg capsule 72 mcg PO QAM Qty: 30 6RF metoprolol succinate 50 mg tablet extended release 24 hr 50 mg PO DAILY Qty: 90 1RF (DME) lancets [OneTouch Delica Plus Lancet] 30 gauge misc See Rx Instructions .Route Qty: 100 4RF Rx Instructions: As directed-tests 4 X/day (DME) DISPOSABLE WIPES See Rx Instructions .Route .MEDSUPPLY Qty: 100 12RF Rx Instructions: As directed tizanidine 4 mg tablet 4 mg PO TID PRN (Reason: muscle spasticity) Qty: 90 2RF tramadol 50 mg tablet 50 mg PO TID PRN (Reason: pain) 30 Days Qty: 90 0RF hydrochlorothiazide 25 mg tablet 25 mg PO DAILY 90 Days Qty: 90 1RF ibuprofen 800 mg tablet 800 mg PO TID PRN (Reason: for pain) Qty: 90 2RF metoclopramide HCl [Reglan] 10 mg tablet 10 mg PO .tidac Qty: 90 6RF (DME) Bed assist bar See Rx Instructions .Route .MEDSUPPLY Qty: 1 0RF Rx Instructions: As directed ([facility]) Pull ups 1XL See Rx Instructions .Route .MEDSUPPLY Qty: 300 11RF Rx Instructions: As directed valsartan 320 mg tablet 320 mg PO DAILY Qty: 90 1RF amitriptyline 25 mg tablet 25 mg PO BEDTIME 90 Days Qty: 90 1RF Trulicity 0.75 mg/0.5 mL pen injector 0.75 mg subcut QWEEK Qty: 2 3RF dicyclomine 20 mg tablet 20 mg PO QID Qty: 360 2RF pregabalin 200 mg capsule 200 mg PO Q8H 30 Days Qty: 90 0RF prednisone 20 mg tablet See Rx Instructions PO DAILY 10 Days Qty: 15 0RF Rx Instructions: PO daily; Take 2 tabs daily x 5 days, then 1 tablet daily x 5 days famotidine 40 mg tablet 40 mg PO BEDTIME 15 Days Qty: 15 0RF ([facility]) blood pressure monitor Kit See Rx Instructions .Route Qty: 1 0RF Rx Instructions: As directed ([facility]) FOUR-PRONGED CANE See Rx Instructions .Route .MEDSUPPLY Qty: 1 0RF Rx Instructions: As directed valacyclovir 500 mg tablet 500 mg PO BID Qty: 14 0RF loratadine 10 mg tablet 10 mg PO DAILY PRN (Reason: allergy symptoms) 90 Days Qty: 90 3RF ([facility]) nebulizers Misc See Rx Instructions .Route Rx Instructions: As directed furosemide 20 mg tablet 20 mg PO DAILY ([facility]) FreeStyle Mary Ann 2 [place] Misc See Rx Instructions .Route Qty: 1 0RF Rx Instructions: As directed ([facility]) FreeStyle Mary Ann 2 Sensor Kit See Rx Instructions .Route Qty: 2 4RF Rx Instructions: As directed change every 14 days hydrocortisone [Proctosol HC] 2.5 % cream with perineal applicator 1 appl [place] BID Qty: 30 6RF Rx Instructions: BE SURE TO INCLUDE RECTAL APPICATOR!! roflumilast [Daliresp] 500 mcg tablet 500 mcg PO DAILY 30 Days Qty: 30 9RF Metamucil 3.4 gram/5.4 gram powder 1 tbsp PO BID Qty: 660 2RF Rx Instructions: mix into at least 8 oz of water or juice before administering memantine 10 mg tablet 10 mg PO BID sertraline 25 mg tablet PO bisacodyl [Dulcolax (bisacodyl)] 5 mg tablet,delayed release (DR/EC) 10 mg PO BEDTIME 2 Days Qty: 4 0RF sodium,potassium,mag sulfates [Suprep Bowel Prep Kit] 17.5-3.13-1.6 gram recon soln 480 ml PO .COMPLEX Qty: 354 0RF Rx Instructions: 480 mL orally; FOR COLONOSCOPY PREP doxycycline monohydrate 100 mg tablet 100 mg PO BID 14 Days Qty: 28 0RF codeine-guaifenesin 10-100 mg/5 mL liquid 10 ml PO Q6H PRN (Reason: cough) 10 Days Qty: 300 0RF Ohtuvayre 3 mg/2.5 mL suspension for nebulization inhalation sennosides [Senna Laxative] 8.6 mg tablet 17.2 mg PO BEDTIME 30 Days Qty: 60 3RF azithromycin 250 mg tablet See Rx Instructions PO .COMPLEX Qty: 6 0RF Rx Instructions: take 500 mg today (day 1), then 250 mg for 4 days (days 2-5) PO albuterol sulfate 2.5 mg /3 mL (0.083 %) solution for nebulization 2.5 mg continuous nebulization Q4-6H PRN (Reason: shortness of breath or wheezing) lorazepam 1 mg tablet 1 mg PO BID-TID PRN (Reason: anxiety) 30 Days Qty: 45 0RF Rx Instructions: Lorazepam is being prescribed and managed by psychiatry, NOT BY PCP. PCP will refill Rx this ONE TIME as patient is not able to reach her psychiatrist recently albuterol sulfate 90 mcg/actuation HFA aerosol inhaler 2 puff inhalation QID PRN (Reason: bronchospasm) Qty: 8.5 11RF amlodipine 5 mg tablet 5 mg PO DAILY metformin 500 mg tablet 500 mg PO DAILY Qty: 90 1RF (DME) FreeStyle Mary Ann 3 Plus Sensor Device See Rx Instructions .ROUTE .MEDSUPPLY Qty: 2 5RF Rx Instructions: Use daily As directed to monitor glucose (DME) FreeStyle Mary Ann 3 [place] Misc See Rx Instructions .ROUTE .MEDSUPPLY Qty: 1 0RF Rx Instructions: Use daily As directed to monitor blood glucose ammonium lactate 12 % cream 1 appl topical DAILY Qty: 140 3RF Rx Instructions: Apply to feet daily Interventions: ED Discharge Assessment Last Done: 01/10/25 19:53 Discharge Date/Time: 01/10/25 19:57 Print Language: Sami
[2025-01-10] MEDS: Lidocaine 4 % Patch ADH..PATCH 1 PATCH TRANSDERMA (17:26)
[2025-01-10 17:31] VITALS: BP 166/74; PULSE 75; RESP 18; TEMP 36.8; O2SAT 99
[2025-01-10] MEDS: Lidocaine HCl 1 % MPF 5 ML VIAL INFILTRATI (18:10)
--- NOTE | 2025-01-10 18:13 | PC.NURSE ---
patient a&ox3, vss, pt medicated for 10/10 pain, lido to be injected by provider to lt trap area.
[2025-01-10] MEDS: Morphine Sulfate Immed Release 15 MG TABLET PO (19:44)
[2025-01-10 19:53] VITALS: BP 156/72; PULSE 81; RESP 16; TEMP 36.8; O2SAT 96
--- OUTSIDE RECORDS SUMMARY | 2025-01-10 20:18 | XMS_ITS | Patient Health Record ---
Author Organization [facility] Address [address] [place] [address] Care Team Providers Care Newspaper Carrier Name Role Phone Juventino CHOPRA [place] Primary Care Provider Jeffrey Gerard [phone] Reason For Referral No Information Medications Medication SIG (Take, Route, Frequency, Duration) Notes Start Date End Date Status Lisinopril 40 MG 1 tablet Orally Once a day Active Metoprolol Tartrate 25 MG 1 tablet Orall y Twice a day Active Colyte w Flavor Packs 240 GM as directed Orally as directed; Duration: 1 day(s) 11/14/2013 Active ProAir HFA 108 [...] Status Risk Notes Problem Blood in stool (647774808) Blood in stool (578.1) Active confirmed Problem Constipation (87213848) Constipation (564.00) Active confirmed Problem Gastroesophageal reflux disease (085298549) GERD (gastroesophage al reflux disease) (530.81) Active confirmed Plan Of Treatment Future Test Test Name Order Date COLONOSCOPY 11/14/2013 Insurance Providers Payer Name Payer Address Payer Phone Subscriber Number Group Number Insured Name Patient Relationship to Insured Coverage Start Date Coverage End Date [facility] [address] [place] [phone] [id number] PATO HAYNES Self - patient is the insured Medical (General) History Medical History History ICD Code NIDDM Asthma Denies VT,CVA,renal disease EGD in 10/[address] RobledoIjzboe-lza-rzggcj gastric bx-neg H.pylori HTN Had a sleep study in 10/2013-awaiting res ults Neg GB U/S in 09/2013 Depression Hyperlipidemia Surgical History Surgery Date(Month/Year) tubal ligation ear surgery
--- OUTSIDE RECORDS SUMMARY | 2025-01-10 20:19 | XMS_ITS | Clinical Summary ---
Author Organization [facility] Address [address] [place] [address] Phone Care Team Providers Care Grant Coordinator Name Role Phone Leroy Sanchez MD Primary [...] mg total) by mouth at bedtime. Active methocarbamoL (ROBAXIN) 500 mg tablet Take 2 tablets (1,000 mg total) by mouth 2 (two) times a day if needed for muscle spasms for up to 14 days. 28 tablet 5 01/25/20 25 Active lidocaine (LIDODERM) 5 % patch Apply 1 patch topically 1 (one) time each day. Remove & discard patch within 12 hours or as directed by MD. 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 Plan from our standpoint will be for a 1 year follow-up CT scan of the chest and a visit in this office after that. All questions were answered. This visit was done through the video core shaper sides services. Chronic obstructive pulmonar y disease ([facility] V24, [facility] V28) 09/29/2016 Obstructive sleep apnea syndrome 09/29/2016 Overview (12/23/2023): [facility] Home Polysomnogram: Date 05/17/2017; AHI 6, Unclassified apneas 0; Obstructive apneas 0; Central apneas 0; Mixed apneas 0; hypopneas 37; average oxygen saturation 94% (lowest 82% without saturations <88% for 5% or more of study) - Obstructive Sleep Apnea - mild; all hypopneas; no sleep related hypoventilation by 2018 home polysomnogram. Depression 04/04/2012 DM2 (diabetes mellitus, type 2) ([facility] V24, [facility] V28) 04/04/2012 Hyperlipidemia with target LDL less than 70 03/16 Overview (12/23/2023): IMO update Hypertension 04/04/2012 LBBB (left bundle branch block) 04/04/2012 Lumbar disc disease 04/04/2012 Resolved Problems Problem Noted Date Diagnosed Date Resolved Date Anxiety 04/04/2012 12/23/2023 Encounters Date Type Department Care Team Description 01/10/2025 5:04 AM EDT - 01/10/2025 8:10 AM EDT Emergency [facility] Emergency [address] [place] [address] Alicia Cunningham MD Cervical paraspinal muscle spasm (Primary Dx) Discharge Disposition: Home or Self Care from Last 3 Months Surgical History Surgery Date Site/Laterality Comments TUBAL LIGATION PROCEDURE: HISTORICAL TUBAL LIGATION OTHER SURGICAL HISTORY 2017 PROCEDURE: LUNG BIOPSY THROUGH CHEST WALL Medical History Medical History Date Comments Hypertension 04/04/2012 DX:Hypertension Historical Medical DX 04/04/2012 DX:Hyperli pidemia LDL goal < 70 DM2 (diabetes mellitus, type 2) ([facility] V24, [facility] V28) 04/04/2012 DX:DM2 (diabetes mellitus, t ype 2) ([facility]) Lumbar disc disease 04/04/2012 DX:Lumbar di sc disease Depression 04/04/2012 DX:Depression Anxiety 04/04/2012 DX:Anxiety Obesity 04/04/2012 DX:Obesity LBBB (left bundle branch block) 04/04/2012 DX:LBBB (left bundle branch block) Emphysema lung ([facility] V24, [facility] V28) DX:Emphysema lung ([facility]) Fibromyalgia DX:Fibromyalgia Arthritis DX:Arthritis Family History Medical [...] Mass Index 37.2 01/10/2025 4:54 AM EDT Plan of Treatment Upcoming Encounters Date Type Department Care Team (Late st Contact Info) Description 02/15/2025 10:00 AM EST Consult Orthopedic Surgery - [facility] [address] [place] [address] [place] [phone] Evangelista Reddy, DPM [address] [place] [address] Health Maintenance Due Date Last Done Comments [...] 03/15/2024 COVID-19 Vaccine (7 - Pfizer risk 2023- season) 2024 11/11/2023, 02/18/2023, 12/17/2021, Additional history exists Influenza Vaccine (#1) 2024 , 01/13/2023, 02/14/2021, Additional history exists DTaP,Tdap,and Td Vaccines (3 - Td or Tdap) 05/11/2025 05/11/2015, 04/16/2015 Breast Cancer Screening 06/15/2025 06/16/19 24, 06/11/2022, 06/02/2021, Additional history exists Colorectal Cancer Screening: FIT-DNA (Cologuard) 12/19/2027 12/18/2024, 12/18/2024 Pneumococcal Vaccine: 50+ Years Completed 09/19/2021, 01/11/2020 [...] Procedure Name Priority Date/Time Associated Diagnosis Comments [facility] SCREENING DIGITAL Routine 06/16/2023 11:59 AM EDT Encounter for screening mammogram for malignant neoplasm of breast from Last 3 Months or Most Recently Relevant to Health Maintenance Results * [facility] SCREENING DIGITAL (06/16/2023 11:59 AM EDT) Anatomical Region Laterality Modality Mammography 06/16/2023 10:3 6 AM EDT Narrative 06/16/2023 11:59 AM EDT [facility] Diagnostic Imaging Department [address] [place] [address] Patient: SAHUPATO I /Age/Sex: 1955 - 67 - F Unit#: [id number] Location/Status: SPDIMAM/REG CLI Mnemonic/Ordering Site: DIGSC/SPMAM Ordering Physician: LEROY SANCHEZ MD [facility] Screening Digital - 06/16/23 - 1106 Report Status:Signed EXAM: [facility] Screening Digital EXAM DATE AND TIME: 06/16/2023 11:07 AM HISTORY: Annual screening COMPARISON: Multiple exams dating back to 2016 TECHNIQUE: Bilateral digital breast tomosynthesis was performed in the CC and MLO projections. Computer aided detection with BoomBang 3D 3.1 was employed. TISSUE DENSITY: b. [...] Procedure Note Wally Moeller MD - 11/01/2023 [facility] Diagnostic Imaging Department [address] [place] [id number] Patient: IVYPATO D.O.B./Age/Sex: 1955 - 67 - F Unit#: [id number] Location/Status: SPDIMA/REG CLI Mnemonic/Ordering Site: DIGSC/SPMAM Ordering Physician: LEROY SANCHEZ MD [facility] Screening Digital - 06/16/23 - 1106 Report Status:Signed EXAM: [facility] Screening Digital EXAM DATE AND TIME: 06/16/2023 11:07 AM HISTORY: Annual screening COMPARISON: Multiple exams dating back to 2016 TECHNIQUE: Bilateral digital breast tomosynthesis was performed in the CCand MLO projections. Computer aided detection with BoomBang 3D 3.1was employed. TISSUE DENSITY: b. There [...] MEDICARE ADVANTAGE [place]ICAID - [place] Care Teams Grant Coordinator Relationship Specialty Start Date End Date Leroy Sanchez MD [address] [place] [address] [place] [address] PCP - General Internal Medicine 11/27/11
== END 2025-01-10 19:57 | disposition home or self-care (01) ==
PROVIDERS: Emergency Provider Emergency Medicine Emergency Medical Services; PCP Internal Medicine
DX: S16.1XXA Strain of muscle, fascia and tendon at neck level, initial encounter (principal); X58.XXXA Exposure to other specified factors, initial encounter; Y93.9 Activity, unspecified; Y92.9 Unspecified place or not applicable; Y99.9 Unspecified external cause status; M54.2 Cervicalgia
CPT/HCPCS: 96372; 99284; J1885; J2003

== ENCOUNTER 2025-01-18 08:28 | Outpatient (AMB) | payer MEDICARE, MEDICAID, SELFPAY ==
--- NOTE | 2025-01-18 08:35 | MHC.PC.OV ---
Vital Signs 01/18/25 08:37 Height 5 ft 1 in Weight 218 lb 6 oz BMI 41.3 BP 120/80 Blood Pressure Location Rt brachial Position Sitting Pulse 57 Pulse Source Pulse Oximeter Temp 97.1 F Temp Source Temporal Artery Scan Pulse Oximetry (%) 96 Oxygen Delivery Method Room Air Intake Visit Reasons: [facility] ED f/u 01/12/25/med review. Intake Note: Patient is here to follow-up after a visit the emergency department at [facility] on 01/12/25 and Medication review. Hot Packer Required: Yes Hot Packer Language: Forensic Science Technician Name: Lemuel (son) Information Interpreted: non-clinical & clinical (Pt decline log sorting supervisor service prefer son to translate) Belt Machine Operator: Present Accompanied by: Son Allergies penicillin G Allergy (Severe, Verified 01/21/25 20:27) Itching latex Allergy (Intermediate, Verified 01/21/25 20:27) Itching nitrofurantoin Allergy (Intermediate, Verified 01/21/25 20:27) itching and redness (in the legs) Medication List - Last Reconciled 01/18/25 by CHERRI Ladd albuterol sulfate 2.5 mg continuous nebulization Q4-6H PRN albuterol sulfate 90 mcg/actuation 2 puffs inhalation QID PRN alcohol swabs 1 pad topical TID amitriptyline 25 mg PO BEDTIME 90 days amlodipine 5 mg PO DAILY ammonium lactate 12% 1 appl topical DAILY aspirin 81 mg PO DAILY 90 days atorvastatin 40 mg PO DAILY [Bed assist bar As directed] bisacodyl (Dulcolax (bisacodyl)) 10 mg (2 x 5 mg) PO BEDTIME 2 days blood pressure monitor As directed blood sugar diagnostic (OneTouch Verio test strips) Three times a day blood-glucose meter (OneTouch Verio Flex Meter) As directed trsts 4 X/day blood-glucose sensor (FreeStyle Mary Ann 3 Plus Sensor device) Use daily As directed to monitor glucose blood-glucose,stenciler,cont (FreeStyle Mary Ann 3 Sandy Level) Use daily As directed to monitor blood glucose cholecalciferol (vitamin D3) 50 mcg PO DAILY 90 days clotrimazole-betamethasone 1-0.05 % 1 appl topical BID PRN 7 days cyanocobalamin (vitamin B-12) 1,000 mcg PO DAILY 90 days dexlansoprazole 60 mg PO DAILY dextromethorphan HBr 30 mg (2 x 15 mg) PO Q8H PRN 30 days diclofenac sodium 1% (Arthritis Pain (diclofenac)) 2 grams topical QID PRN dicyclomine 20 mg PO QID [DISPOSABLE WIPES As directed] doxycycline monohydrate 100 mg PO BID 14 days dulaglutide (Trulicity) 0.75 mg (0.5 mL) subcut QWEEK ensifentrine (Ohtuvayre) inhalation famotidine 40 mg PO BEDTIME 15 days fluticasone propionate 220 mcg/actuation (Flovent HFA) 1 puff PO BID fluticasone propionate 50 mcg/actuation 2 sprays intranasal DAILY 30 days [FOUR-PRONGED CANE As directed] furosemide 20 mg PO DAILY glucose 12 grams (3 x 4 gram) PO Q15M hydrochlorothiazide 25 mg PO DAILY 90 days hydrocortisone 2.5% 1 appl topical BID PRN hydrocortisone 2.5% (Proctosol HC) 1 appl VA BID ibuprofen 400 mg PO Q6H PRN ibuprofen 800 mg PO TID PRN ipratropium-albuterol 0.5 mg-3 mg(2.5 mg base)/3 mL 3 mL inhalation QID PRN lancets (Emote GamesTouch Delica Plus Lancet) As directed-tests 4 X/day lidocaine 5% (Lidoderm) 1 patch topical DAILY 30 days [LIGHTWEIGHT WALKER WITH SEAT walker with seat] linaclotide (Linzess) 72 mcg PO QAM loratadine 10 mg PO DAILY PRN 90 days lorazepam 1 mg PO BID-TID PRN 30 days memantine 10 mg PO BID metformin 500 mg PO DAILY metoclopramide HCl (Reglan) 10 mg PO .tidac metoprolol succinate ER 50 mg PO DAILY montelukast 10 mg PO BEDTIME morphine 15 mg PO Q6H PRN nebulizers As directed nystatin 1 appl topical TID pregabalin 200 mg PO Q8H 30 days psyllium husk (Metamucil) 1 tbsp PO BID [Pull ups As directed] roflumilast (Daliresp) 500 mcg PO DAILY 30 days [ROLLATOR with SEAT As directed] sennosides (Senna Laxative) 17.2 mg (2 x 8.6 mg) PO BEDTIME 30 days sertraline 50 mg PO DAILY sertraline mg PO Shower Chair As directed sodium,potassium,mag sulfates 17.5-3.13-1.6 gram (Suprep Bowel Prep Kit) 480 mL orally; FOR COLONOSCOPY PREP tiotropium-olodaterol 2.5-2.5 mcg/actuation (Stiolto Respimat) 2 puffs inhalation DAILY tizanidine 4 mg PO TID PRN tramadol 50 mg PO TID PRN 30 days umeclidinium-vilanterol 62.5-25 mcg/actuation (Anoro Ellipta) 1 inh inhalation DAILY valacyclovir 500 mg PO BID valsartan 320 mg PO DAILY Tobacco use date assessed: 01/18/25 Fall risk assessment: No Falls in past year Last assessed Fall Risk: 01/18/25 Dental Screening Dental Screen Date: 09/07/24 [facility] ED f/u 01/12/25/med review. HPI Details The patient is a 69 year old female presenting for a follow-up after an ER at [facility] visit for neck pain and spasms, persistent nausea, and for a medication consultation. She recently visited the [facility] emergency room for substantial neck pain and spasms, which are thought to be related to her arthritis. While her pain is now manageable, she has developed worsening nausea over the past 5 days and has not been able to eat, consuming mostly broth and occasional shakes. She reports feeling nauseous and needing to spit but is not vomiting. She denies heartburn but experiences gas and burping. She was constipated after the ER visit but has returned to normal bowel movements in the last three days. Her son is present to help manage her medications, as there is confusion regarding her regimen, and she has a tendency to stop her maintenance medications when new ones are prescribed. She has not taken her blood pressure or diabetes medications today. She took morphine once about 4-5 days ago, which may have contributed to her nausea. She has not been taking a prescribed course of doxycycline that was prescribed by her pulmonology. She also has not been using her daily inhaler. Abnormal lung sounds on exam. chest x-ray ordered to further evaluate. Past medical history is significant for arthritis, type 2 diabetes managed with Trulicity, hypertension, gastritis, and sleep apnea. She has a history of lung issues requiring a past biopsy and annual CT scans for monitoring. A CT chest last month was reportedly unremarkable. The patient son request that all her medication to be reevaluate and discussed with him. [facility] Medical History (Updated 01/21/25 @ 20:47 by CHERRI Ladd) Status post fall Elevated LFTs Pre-op examination Medicare annual wellness visit, subsequent Cyanosis of skin Respiratory tract infection Weakness of left upper extremity Left leg pain Myofascial muscle pain Bilateral knee pain Left hip pain Back pain Joint pain in both hands Osteoarthritis Encounter for well woman exam with routine gynecological exam Vulvar itching Stress incontinence Medicare annual wellness visit, subsequent Otitis media of right ear Sore throat Upper respiratory tract infection URI, acute Frequent fecal incontinence Stool incontinence Right sided abdominal pain Frozen shoulder Chest pain Calcific tendinitis of left shoulder Weakness of both lower extremities Joint pain in fingers of both hands Vitamin B12 deficiency Bilateral ankle pain Rash Right foot pain Cervical cancer screening Bronchopneumonia Chronic low back pain Bilateral foot pain Bilateral hip pain Annual physical exam Hyperlipidemia LDL goal <70 Bilateral hip pain Fibromyalgia Chronic bronchitis Vitamin D deficiency Post-thoracotomy pain syndrome COPD (chronic obstructive pulmonary disease) Depression Anxiety Type 2 diabetes mellitus with diabetic polyneuropathy Pulmonary nodules Allergic rhinitis GERD (gastroesophageal reflux disease) Morbid obesity with BMI of 40.0-44.9, adult Asthma Obstructive sleep apnea Lumbar degenerative disc disease Carcinoid tumor Coronary artery disease Benign essential hypertension Type 2 diabetes mellitus with hyperglycemia, with long-term current use of insulin Surgical History History of rectal sphincterotomy (~11/2013) History of colonoscopy (~12/2013) History of tubal ligation History of lung biopsy (~07/2016) History of esophagogastroduodenoscopy (EGD) (~10/2011) History of lobectomy of lung (~08/2016) History of cardiac cath (~07/2018) Family History Father Stroke Hypertension Diabetes Mother Diabetes Hypertension Other Arthritis Lupus Social History Household Members: Spouse Housing: Apartment Alcohol intake: never Patient Tobacco Use Status: Former Tobacco user Tobacco use type: Cigarette e-Cigarette/Vaping Use: Never Used Second Hand Smoke Exposure: Yes service: No Current occupational status: disabled Cognitive needs: No Hearing needs: No Vision needs: Yes Questionnaire Thrive Questionnaire Date Thrive assessed: 09/07/24 I am a: Patient What is your living situation today?: I have a steady place to live Within the past 12 months, did the food you bought not last and you didn't have the money to get more?: Sometimes True Within the past 12 months, did you worry whether your food would run out before you got money to buy more?: Sometimes True Do you have trouble paying for medicines?: Yes Do you have trouble getting transportation to medical appointments?: No Do you have trouble paying your heating and electricity bill?: No Do you have trouble taking care of your child, family member or friend?: No Do you have trouble with day-to-day activities such as bathing, preparing meals, shopping, managing finances, etc.?: No Are you currently unemployed and looking for a job?: No Are you interested in more education?: No Currently or been in a relationship where the following occur: I choose not to answer THRIVE Score: 2 EVELINE-7 AMB Questionnaire EVELINE-7 Date EVELINE - 7 assessed: 11/22/24 Source: Developed by Drs. Jeffrey Chavez, Marj Villatoro, Vaibhav Pagan and colleagues, with an educational norm from [employer]. Review of Systems Const Denies chills, Reports difficulty sleeping, Reports fatigue, Denies fever(s) and Denies headache(s) ENT Denies dysphagia, Denies dizziness, Denies otalgia, Denies headache(s), Denies nasal congestion, Reports neck pain, Denies odynophagia and Denies sore throat Card Denies chest pain, Denies palpitations and Reports dyspnea on exertion (mild) Resp Reports chest congestion (mild), Reports cough (recurrent, non-productive), Denies excessive phlegm production, Reports dyspnea on exertion (mild) and Denies wheezing GI Denies abdominal pain, Denies constipation, Denies dysphagia, Denies heartburn, Reports fecal incontinence, Denies diarrhea, Denies nausea, Denies odynophagia and Denies vomiting Denies difficulty voiding, Denies nocturia, Denies dysuria, Reports urinary incontinence (at times) and Denies urinary urgency Musc Reports back pain (especially over the right lower back), Reports arthralgias (over the left shoulder, left hip and left knee), Reports neck pain and Reports numbness (in both feet, on and off) Skin/Breast Denies rash Neuro Denies dizziness, Denies headache(s), Reports numbness (in both feet, on and off) and Reports paresthesias (in both feet) Endo Reports fatigue and Denies palpitations Aller/Immun Denies wheezing Physical exam (Primary Care) Vital Signs: Last Vital Signs Temp 97.1 F 01/18/25 08:37 Pulse 57 01/18/25 08:37 BP 120/80 01/18/25 08:37 Pulse Ox 96 01/18/25 08:37 Oxygen Delivery Method Room Air 01/18/25 08:37 BMI result Body Mass Index 41.3 Tobacco/Smoking Status: Tobacco use Status Tobacco use date assessed 01/18/25 01/18/25 08:41 Patient Tobacco Use Status Former Tobacco user 01/18/25 08:41 Tobacco use type Cigarette 01/18/25 08:41 e-Cigarette/Vaping Use Never Used 01/18/25 08:41 Thrive Assessment: Date of Thrive Assessment Date Thrive assessed 09/07/24 01/18/25 08:41 Currently or been in a relationship where the following occur: I choose not to answer Const General: no acute distress and alert HENMT Ears: TM's normal bilaterally and EAC's normal Throat: Yes posterior oropharynx normal and Yes tonsils normal (no TP congestion noted) Neck Neck: Yes supple and No lymphadenopathy Thyroid: Thyroid normal Resp Auscultation: no crackles, rales on the left in the lower lung aggarwal and bilateral in the upper lung aggarwal and no wheezes Cardio Rate: regular rate Rhythm: regular rhythm Heart sounds: no murmurs GI Palpation (GI): Soft to palpation and nontender Auscultation: normal bowel sounds General: Yes no CVA tenderness Back/Spine/Pelvis Back: no CVA tenderness Cervical Spine: Cervical spine tenderness (mild) Thoracic/Lumbar Spine: paraspinal muscle tenderness on the right in the lower lumbar and lumbar spinal tenderness Skin Rashes: no rashes Extrem General: Yes no clubbing, cyanosis or edema Left upper extremity: shoulder/upper arm Details: tenderness Location: of the A-C joint Left lower extremity: hip/thigh Details: tenderness and knee Details: tenderness (increased); no swelling Coding Level of Care Code Est Pt Level 4 (19499) Diagnoses Cervical pain M54.2 Abnormal lung sounds R09.89 Dyspnea on exertion R06.00 Dyspnea type: dyspnea on exertion Type 2 diabetes mellitus with diabetic polyneuropathy, with long-term current use of insulin E11.42; Z79.4 Diabetes mellitus assisted insulin use: with terminal make up operator use Benign essential hypertension I10 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 Carcinoid tumor location: lung Carcinoid tumor malignancy status: malignant Moderate persistent asthma with acute exacerbation J45.41 Asthma complication type: with acute exacerbation Asthma persistence: persistent Asthma severity: moderate Obstructive sleep apnea G47.33 Gastroesophageal reflux disease without esophagitis K21.9 Esophagitis presence: without esophagitis Vitamin D deficiency E55.9 Cognitive impairment R41.89 Anxiety F41.9 Episode of recurrent major depressive disorder, unspecified depression episode severity F33.9 Active/Remission status: currently active Depression Type: major depressive disorder Major depression episode severity: unspecified Major depression recurrence: recurrent Morbid obesity with BMI of 40.0-44.9, adult E66.01; Z68.41 Nausea R11.0 Time Spent (min) 41 Assessment & Plan Assessment & Plan (1) Cervical pain: Code(s): M54.2 - Cervicalgia Category: Medical Plan: The patient's neck pain and spasms, treated recently in the ER, are now manageable. She is taking methocarbamol, a muscle relaxer. Due to stomach irritation, she was advised to use Tylenol for pain instead of ibuprofen. Patient only took one of the morphine that was prescribed in the ED. Pain has been managed, concerns now is her nausea preventing eating at this time. Encouraged adequate fluid hydration. (2) Abnormal lung sounds: Code(s): R09.89 - Other specified symptoms and signs involving the circulatory and respiratory systems Category: Medical Plan: Abnormal breath sounds on exam. Chronic bronchitis, was on azithromycin three times a week. This was discontinued on doxycycline 100 mg b.i.d. times 14 days was ordered by pulmonology. Apparently the patient has not started the medication as yet. Encouraged to start medication ADAM. (3) Dyspnea: Code(s): R06.00 - Dyspnea, unspecified Category: Medical Qualifiers: Dyspnea type: dyspnea on exertion Qualified Code(s): R06.00 - Dyspnea, unspecified Plan: Chronic, however, reports increase in sob. CXR ordered to further evaluate. Continue long-acting and short-acting inhalers as prescribed. Follow up with pulmonology as scheduled (4) Type 2 diabetes mellitus with diabetic polyneuropathy: Code(s): E11.42 - Type 2 diabetes mellitus with diabetic polyneuropathy Category: Medical Qualifiers: Diabetes mellitus terminal make up operator insulin use: with terminal make up operator use Qualified Code(s): E11.42 - Type 2 diabetes mellitus with diabetic polyneuropathy; Z79.4 - terminal make up operator (current) use of insulin Plan: Her HgbA1c was most recently at 7.5% on her labs done yesterday (she was at 7.2% a few months ago) - goal is <7.0% Reinforced diabetic diet Continue Metformin 500 mg QD and Mounjaro 5 mg SQ once a week She was also on Lantus in the past but this was discontinued by endocrinology Patient was also on Repaglinide 0.5 mg 1 tablet before breakfast and 2 tablets before dinner in the past but she has not taken this in a while now. Patient is complaining of nausea and not being able to eat. Discussed adequate hydration and not to take metformin if she is not hydrated due to the risk of lactic acidosis. Follow up with endocrinology as scheduled (5) Benign essential hypertension: Code(s): I10 - Essential (primary) hypertension Category: Medical Plan: Reinforced low sodium diet - goal is systolic BP of 120 mm or less Continue Valsartan 320 mg QD, Metoprolol ER 50 mg QD and HCTZ 25 mg QD (6) Carcinoid tumor: Comment: (S/P RUL lobectomy at [facility] - 08/2016) Code(s): D3A.00 - Benign carcinoid tumor of unspecified site Category: Medical Qualifiers: Carcinoid tumor location: lung Carcinoid tumor malignancy status: malignant Qualified Code(s): 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 Waggoner on 09/02/[address] done in September 2020, August 2021, October 2023 and most recently in January 2024 showed stable findings with (+) pulmonary nodules that appear benign Follow up with pulmonary and Dr. Waggoner and oncology as scheduled for continuing surveillance (7) Asthma: Code(s): J45.909 - Unspecified asthma, uncomplicated Category: Medical Qualifiers: Asthma complication type: with acute exacerbation Asthma persistence: persistent Asthma severity: moderate Qualified Code(s): J45.41 - Moderate persistent asthma with (acute) exacerbation Plan: Continue Flovent HFA 220 mcg 1 inhalation BID, Stiolto Respimat 2.5-2.5 mcg 2 inhalations QD, Albuterol HFA 2 inhalations Q 6 hours PRN and updraft treatments with Ipratropium-Albuterol 0.5-3 mg/3 ml QID PRN Continue Montelukast 10 mg QD and Loratadine 10 mg QD PRN Patient was on Azithromycin MW for prophylactic Tx - started by pulmonary, then discontinued and doxycycline 100 mg b.i.d. times 14 days ordered. Follow up with pulmonary as scheduled (8) Obstructive sleep apnea: Code(s): G47.33 - Obstructive sleep apnea (adult) (pediatric) Category: Medical Plan: States that she has not been using her CPAP device lately and is scheduled for a repeat sleep study for further evaluation soon Follow up with Sleep Medicine as scheduled (9) GERD (gastroesophageal reflux disease): Code(s): K21.9 - Gastro-esophageal reflux disease without esophagitis Category: Medical Qualifiers: Esophagitis presence: without esophagitis Qualified Code(s): K21.9 - Gastro-esophageal reflux disease without esophagitis Plan: Dietary restrictions reinforced Continue Dexlansoprazole 60 mg QD Follow up with GI as scheduled (10) Vitamin D deficiency: Code(s): E55.9 - Vitamin D deficiency, unspecified Category: Medical Plan: Continue Vitamin D3 2000 units QD (11) Cognitive impairment: Code(s): R41.89 - Other symptoms and signs involving cognitive functions and awareness Category: Medical Plan: Continue Memantine 10 mg BID Follow up with neurology as scheduled (12) Anxiety: Code(s): F41.9 - Anxiety disorder, unspecified Category: Medical Plan: Continue Lorazepam 1 mg BID-TID PRN (13) Depression: Code(s): F32.9 - Major depressive disorder, single episode, unspecified Category: Medical Qualifiers: Active/Remission status: currently active Depression Type: major depressive disorder Major depression episode severity: unspecified Major depression recurrence: recurrent Qualified Code(s): F33.9 - Major depressive disorder, recurrent, unspecified Plan: Continue Sertraline 50 mg QD (14) Morbid obesity with BMI of 40.0-44.9, adult: Code(s): E66.01 - Morbid (severe) obesity due to excess calories; Z68.41 - Body mass index [BMI] 40.0-44.9, adult Category: Medical Plan: Reinforced diet; exercise and weight loss are unrealistic given patient's multiple comorbidities and physical issues (15) Nausea: Code(s): R11.0 - Nausea Category: Medical Plan: The patient's nausea is likely multifactorial, potentially related to gas, medication side effects, or underlying gastritis. A prescription for famotidine 40 mg was sent to be taken at nighttime. Advised to take dexlansoprazole before eating to ensure efficacy. Instructed to avoid ibuprofen due to potential stomach irritation and use Tylenol for pain instead. She can resume ibuprofen once she is eating normally, but it must be taken with food. The patient will follow up with her dbas on November 17. Orders: Orders XR chest 2V 01/18/25 R06.00 - Dyspnea, unspecified, R91.8 - Other nonspecific abnormal finding of lung field Medications: Changed From fluticasone propionate 220 mcg/actuation (Flovent HFA) 1 puff PO BID 12 ea 5RF J45.40 - Moderate persistent asthma, uncomplicated To fluticasone propionate 220 mcg/actuation 1 puff PO BID 12 ea 5RF J45.40 - Moderate persistent asthma, uncomplicated From famotidine 40 mg PO BEDTIME 15 days 15 tabs 0RF GERD To famotidine 40 mg PO BEDTIME 30 tabs 3RF GERD 30 days
[2025-01-18 08:37] VITALS: BP 120/80; PULSE 57; TEMP 36.2; O2SAT 96; BMI 41.3
--- OUTSIDE RECORDS SUMMARY | 2025-01-18 08:53 | XMS_ITS | Patient Health Record ---
Author Organization [facility] Address [address] [place] [address] Care Team Providers Care Health Associate Name Role Phone Juventino CHOPRA [place] Primary Care Provider Jeffrey Gerard [phone] Reason For Referral No Information Medications Medication [...] Status Risk Notes Problem Blood in stool (395481429) Blood in stool (578.1) Active confirmed Problem Constipation (33214156) Constipation (564.00) Active confirmed Problem Gastroesophageal reflux disease (002872689) GERD (gastroesophage al reflux disease) (530.81) Active confirmed Plan Of Treatment Future Test Test Name Order Date COLONOSCOPY 11/14/2013 Insurance Providers Payer Name Payer Address Payer Phone Subscriber Number Group Number Insured Name Patient Relationship to Insured Coverage Start Date Coverage End Date [facility] [address] [place] [phone] [id number] PATO HAYNES Self - patient is the insured Medical (General) History Medical History History ICD Code NIDDM Asthma Denies ME,CVA,renal disease EGD in 10/[address] RobledoRrjvug-lcr-hbrjca gastric bx-neg H.pylori HTN Had a sleep study in 10/2013-awaiting res ults Neg GB U/S in 09/2013 Depression Hyperlipidemia Surgical History Surgery Date(Month/Year) tubal ligation ear surgery
--- OUTSIDE RECORDS SUMMARY | 2025-01-18 08:53 | XMS_ITS | Clinical Summary ---
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 Plan from our standpoint will be for a 1 year follow-up CT scan of the chest and a visit in this office after that. All questions were answered. This visit was done through the video electric freight car operator services. Chronic obstructive pulmonar y disease ([facility] V24, [facility] V28) 09/29/2016 Obstructive sleep apnea syndrome 09/29/2016 Overview (12/23/2023): [facility] Home Polysomnogram: Date 05/17/2017; AHI 6, Unclassified apneas 0; Obstructive apneas 0; Central apneas 0; Mixed apneas 0; hypopneas 37; average oxygen saturation 94% (lowest 82% without saturations <88% for 5% or more of study) - Obstructive Sleep Apnea - mild; all hypopneas; no sleep related hypoventilation by 2018 home polysomnogram. Depression 04/04/2012 DM2 (diabetes mellitus, type 2) ([facility] V24, [facility] V28) 04/04/2012 Hyperlipidemia with target LDL less than 70 03/16 Overview (12/23/2023): IMO update Hypertension 04/04/2012 LBBB (left bundle branch block) 04/04/2012 Lumbar disc disease 04/04/2012 Resolved Problems Problem Noted Date Diagnosed Date Resolved Date Anxiety 04/04/2012 12/23/2023 Encounters Date Type Department Care Team Description 01/10/2025 5:04 AM EDT - 01/10/2025 8:10 AM EDT Emergency [facility] Emergency [address] [place] [address] Alicia Cunningham MD Cervical paraspinal [...] DM2 (diabetes mellitus, type 2) ([facility] V24, [facility] V28) 04/04/2012 DX:DM2 (diabetes mellitus, t ype 2) ([facility]) Lumbar disc disease 04/04/2012 DX:Lumbar di sc disease Depression 04/04/2012 DX:Depression Anxiety 04/04/2012 DX:Anxiety Obesity 04/04/2012 DX:Obesity LBBB (left bundle branch block) 04/04/2012 DX:LBBB (left bundle branch block) Emphysema lung ([facility] V24, [facility] V28) DX:Emphysema lung ([facility]) Fibromyalgia DX:Fibromyalgia Arthritis DX:Arthritis Family History [...] 10:00 AM EST Consult Orthopedic Surgery - Echo [address] [address] Evangelista Reddy, DPM [address] [address] Health Maintenance Due Date Last Done Comments [...] Procedure Name Priority Date/Time Associated Diagnosis Comments [facility] SCREENING DIGITAL Routine 06/16/2023 11:59 AM EDT Encounter for screening mammogram for malignant neoplasm of breast from Last 3 Months or Most Recently Relevant to Health Maintenance Results * [facility] SCREENING DIGITAL (06/16/2023 11:59 AM EDT) Anatomical Region Laterality Modality Mammography 06/16/2023 10:3 6 AM EDT Narrative 06/16/2023 11:59 AM EDT [facility] Diagnostic Imaging Department [address] [place] [address] Patient: IVYPATO I /Age/Sex: 1955 - 67 - F Unit#: [id number] Location/Status: SPDIMAM/REG CLI Mnemonic/Ordering Site: DIGSC/SPMAM Ordering Physician: LEROY SANCHEZ MD [facility] Screening Digital - 06/16/23 - 1106 Report Status:Signed EXAM: [facility] Screening Digital EXAM DATE AND TIME: 06/16/2023 11:07 AM HISTORY: Annual screening COMPARISON: Multiple exams dating back to 2016 TECHNIQUE: Bilateral digital breast tomosynthesis was performed in the CC and MLO projections. Computer aided detection with [employer] 3D 3.1 was employed. TISSUE DENSITY: b. [...] Procedure Note Wally Moeller MD - 11/01/2023 [facility] Diagnostic Imaging Department [address] [place] [address] Patient: PATO SAHU Nikki Nassar/Age/Sex: 1955 - 67 - F Unit#: [id number] [facility] Mn[facility]/Ordering Site: DIGSC/SPMAM Ordering Physician: LEROY SANCHEZ MD [facility] Screening Digital - 06/16/23 - 1106 Report Status:Signed EXAM: [facility] Screening Digital EXAM DATE AND TIME: 06/16/2023 11:07 AM HISTORY: Annual screening COMPARISON: Multiple exams dating back to 2016 TECHNIQUE: Bilateral digital breast tomosynthesis was performed in the CCand MLO projections. Computer aided detection with [employer] 3D 3.1was employed. TISSUE DENSITY: b. There [...] MEDICARE ADVANTAGE MEDICAID - [place] Care Teams Risk Control Field Representative Relationship Specialty Start Date End Date Leroy Sanchez MD [address] [place] [address] [address] [place], [place] PCP - General Internal Medicine 11/27/11
== END 2025-01-18 10:01 | disposition home or self-care (01) ==
LOC: HO.HMCH 08:28
PROVIDERS: PCP Internal Medicine
DX: M54.2 Cervicalgia (principal); R09.89 Other specified symptoms and signs involving the circulatory and respiratory systems; R06.00 Dyspnea, unspecified; E11.42 Type 2 diabetes mellitus with diabetic polyneuropathy; Z79.4 Long term (current) use of insulin; I10 Essential (primary) hypertension; C7A.090 Malignant carcinoid tumor of the bronchus and lung; J45.41 Moderate persistent asthma with (acute) exacerbation; G47.33 Obstructive sleep apnea (adult) (pediatric); K21.9 Gastro-esophageal reflux disease without esophagitis; E66.01 Morbid (severe) obesity due to excess calories; Z68.41 Body mass index [BMI] 40.0-44.9, adult; E55.9 Vitamin D deficiency, unspecified; R41.89 Other symptoms and signs involving cognitive functions and awareness; F41.9 Anxiety disorder, unspecified; F33.9 Major depressive disorder, recurrent, unspecified; R11.0 Nausea

== ENCOUNTER → 2025-01-18 08:28 | Outpatient (BNVA) | payer MEDICARE, MEDICAID, SELFPAY | PROVIDERS: PCP Internal Medicine | DX: E11.42 Type 2 diabetes mellitus with diabetic polyneuropathy (principal); I10 Essential (primary) hypertension; I25.10 Atherosclerotic heart disease of native coronary artery without angina pectoris; M72.2 Plantar fascial fibromatosis; R23.0 Cyanosis; L85.3 Xerosis cutis; L84 Corns and callosities; B35.1 Tinea unguium; M54.2 Cervicalgia; R09.89 Other specified symptoms and signs involving the circulatory and respiratory systems; R06.00 Dyspnea, unspecified; C7A.090 Malignant carcinoid tumor of the bronchus and lung; J45.41 Moderate persistent asthma with (acute) exacerbation; G47.33 Obstructive sleep apnea (adult) (pediatric); K21.9 Gastro-esophageal reflux disease without esophagitis; E55.9 Vitamin D deficiency, unspecified; R41.89 Other symptoms and signs involving cognitive functions and awareness; F41.9 Anxiety disorder, unspecified; F33.9 Major depressive disorder, recurrent, unspecified; E66.01 Morbid (severe) obesity due to excess calories; R11.0 Nausea; Z79.4 Long term (current) use of insulin; Z68.41 Body mass index [BMI] 40.0-44.9, adult; Z79.899 Other long term (current) drug therapy | CPT/HCPCS: 11056; 11721; 99212 ==

== ENCOUNTER 2025-01-18 10:45 | Outpatient (AMB) | payer MEDICARE, MEDICAID, SELFPAY ==
--- NOTE | 2025-01-18 11:06 | MHC.OFFVIS ---
Intake Visit Reasons: Follow Up Diabetic foot care Intake Note: Radha is a 69 year old female who presents today for a follow up on her corn and callouses. During her last visit her corns and callouses where debrided, she was prescribed ammoniums lactate, and an ultrasound was ordered. Patient states she has been using the medication as prescribed and find it has helped however shhe notes a callous forming on her right foot. Ultrasound is scheduled for 03/14/25 after being rescheduled due to patients recent hospitalization. Allergies penicillin G Allergy (Severe, Verified 01/18/25 11:10) Itching latex Allergy (Intermediate, Verified 01/18/25 11:10) Itching nitrofurantoin Allergy (Intermediate, Verified 01/18/25 11:10) itching and redness (in the legs) HPI HPI Follow Up Diabetic foot care: Details: 69-year-old female past medical history of type 2 diabetes mellitus, HTN, CAD, occurred, vitamin B12 deficiency, lumbar radiculopathy, returns for right foot painful lesion and diabetic care. She has been using the topical ointment prescribed last visit which she states has been helping. Denies heel pain. 09/04/2024 hemoglobin A1c 7.2%. [facility] Medical History (Updated 01/18/25 @ 11:26 by Bhanu Macedo DPM) Status post fall Elevated LFTs Pre-op examination Medicare annual wellness visit, subsequent Cyanosis of skin Respiratory tract infection Weakness of left upper extremity Left leg pain Myofascial muscle pain Bilateral knee pain Left hip pain Back pain Joint pain in both hands Osteoarthritis Encounter for well woman exam with routine gynecological exam Vulvar itching Stress incontinence Medicare annual wellness visit, subsequent Otitis media of right ear Sore throat Upper respiratory tract infection URI, acute Frequent fecal incontinence Stool incontinence Right sided abdominal pain Frozen shoulder Chest pain Calcific tendinitis of left shoulder Weakness of both lower extremities Joint pain in fingers of both hands Vitamin B12 deficiency Bilateral ankle pain Rash Right foot pain Cervical cancer screening Bronchopneumonia Chronic low back pain Bilateral foot pain Bilateral hip pain Annual physical exam Hyperlipidemia LDL goal <70 Bilateral hip pain Fibromyalgia Chronic bronchitis Vitamin D deficiency Post-thoracotomy pain syndrome COPD (chronic obstructive pulmonary disease) Depression Anxiety Type 2 diabetes mellitus with diabetic polyneuropathy Pulmonary nodules Allergic rhinitis GERD (gastroesophageal reflux disease) Morbid obesity with BMI of 40.0-44.9, adult Asthma Obstructive sleep apnea Lumbar degenerative disc disease Carcinoid tumor Coronary artery disease Benign essential hypertension Type 2 diabetes mellitus with hyperglycemia, with long-term current use of insulin Surgical History History of rectal sphincterotomy (~11/2013) History of colonoscopy (~12/2013) History of tubal ligation History of lung biopsy (~07/2016) History of esophagogastroduodenoscopy (EGD) (~10/2011) History of lobectomy of lung (~08/2016) History of cardiac cath (~07/2018) Family History Father Stroke Hypertension Diabetes Mother Diabetes Hypertension Other Arthritis Lupus Social History Household Members: Spouse Housing: Apartment Alcohol intake: never Patient Tobacco Use Status: Former Tobacco user Tobacco use type: Cigarette e-Cigarette/Vaping Use: Never Used Second Hand Smoke Exposure: Yes service: No Current occupational status: disabled Cognitive needs: No Hearing needs: No Vision needs: Yes Review of Systems Const All systems reviewed & are unremarkable except as noted in HPI and below Physical Exam Extrem Other: *Bilateral Lower Extremity Focused Diabetic Foot Exam Vascular: DP/PT 1/4, CFT<3s to digits, TG warm to cool, no pedal edema, pedal hair absent Derm: Skin: hyperkeratotic lesions to the medial aspects of the hallux bilaterally and submet 5 bilaterally. Interdigital spaces: Clear, no maceration or fungal infection. Nails: Thickened elongated dystrophic discolored toenails times 10 with subungual debris. Neuro: Protective sensation grossly intact to bilateral lower extremities Msk: no tenderness to plantar heel bilaterally. Deformities: No evidence of hammertoes, bunions, Charcot changes, or other structural abnormalities. Muscle strength: 4+/5 in all muscle groups. Gait: Normal, no antalgic or steppage gait observed. Footwear Assessment: Shoes inspected; appropriate fit, no excessive wear, or foreign objects noted. Office Procedures AMB Debridement/Avulsion Podia Details: 1. Procedure: Callus debridement Location: 2 lesions right plantar foot Anesthesia: N/A Description: The affected area was cleansed with an antiseptic solution. Using a sterile #15 blade, the hyperkeratotic tissue was radially debrided from the foot. All callused tissue was removed down to normal skin without causing bleeding or discomfort. The area was inspected for underlying ulceration or infection. Patient tolerated the procedure well. No complications noted. Tolerance: Patient tolerated procedure well, no immediate complications. 2. Procedure: Nail debridement Location: 10 nails, bilateral feet Anesthesia: N/A Description: The affected toenails were cleansed with an antiseptic solution. Using sterile nail nippers and a rotary roseanne, dystrophic and mycotic nail material was carefully debrided and reduced in thickness. Care was taken to avoid trauma to the surrounding skin and nail bed. All debris was removed as tolerated. The area was inspected for signs of infection or ulceration. Patient tolerated the procedure well without complications. Tolerance: Patient tolerated procedure well, no immediate complications. Class B findings as per physical exam findings above. The patient has a diagnosis of diabetes mellitus and presents with elongated, thickened toenails. Due to underlying diabetic neuropathy and mild vascular disease findings, the patient is at increased risk for complications such as ulceration, infection, and difficulty with self-care. Debridement of elongated toenails is medically necessary to prevent development of pressure-related lesions, reduce risk of secondary infection, and maintain foot health in high-risk comorbidities. 78987-Knpulumimnc of Nail 6+ 11910-Picxtgvudvc of Callus (2-4) Procedure code (CPT) selection complete Assessment & Plan Assessment & Plan (1) Type 2 diabetes mellitus with diabetic polyneuropathy: Code(s): E11.42 - Type 2 diabetes mellitus with diabetic polyneuropathy Category: Medical Qualifiers: Diabetes mellitus superintendent container terminal insulin use: with superintendent container terminal use Qualified Code(s): E11.42 - Type 2 diabetes mellitus with diabetic polyneuropathy; Z79.4 - terminal computer operator (current) use of insulin Plan: Risk Stratification: No current ulceration, infection, or pre-ulcerative lesion. Patient's toes are cooler to touch and she does complain of occasional discoloration. She is referred for an BEBETO PVR test. Patient is at low risk for diabetic foot complications at this time. Recommendations: Continue routine foot care and daily self-inspection. Recommend moisturizing daily. Recommend supportive proper fitting shoe-wear. The patient may require diabetic shoes in the future. Reinforced diabetic foot education. (2) Plantar fasciitis of right foot: Code(s): M72.2 - Plantar fascial fibromatosis Category: Medical Plan: Continue stretching exercises (3) Cyanosis of skin: Code(s): R23.0 - Cyanosis Category: Medical Plan: Scheduled in February for BEBETO PVR test. (4) Dry skin: Code(s): L85.3 - Xerosis cutis Category: Medical Plan: Continue ammonium lactate, to be applied daily. (5) Orcas or callus: Code(s): L84 - Corns and callosities Category: Medical Plan: Debrided hyperkeratotic lesions right feet. Patient tolerated the procedure well with no complications. (6) Tinea unguium: Code(s): B35.1 - Tinea unguium Category: Medical Plan: debrided elongated nails x10 Orders: Orders AMB Debridement/Avulsion Podiatry Today B35.1 - Tinea unguium Coding Level of Care Code Procedure Only Diagnoses Type 2 diabetes mellitus with diabetic polyneuropathy, with long-term current use of insulin E11.42; Z79.4 Diabetes mellitus superintendent container terminal insulin use: with senior care use Plantar fasciitis of right foot M72.2 Cyanosis of skin R23.0 Dry skin L85.3 Orcas or callus L84 Tinea unguium B35.1 CPT Codes Skin Debridement - CPT: 72090-Sykggnlepmu of Nail 6+ ([id number]) Skin Debridement - CPT: 22336-Xeixpgirbmk of Callus (2-4) ([id number])
== END 2025-01-18 11:21 | disposition home or self-care (01) ==
LOC: HO.HPODS 10:46
PROVIDERS: PCP Internal Medicine; Visit Provider Student in an Organized Health Care Education/Training Program
DX: E11.42 Type 2 diabetes mellitus with diabetic polyneuropathy (principal); Z79.4 Long term (current) use of insulin; M72.2 Plantar fascial fibromatosis; R23.0 Cyanosis; L85.3 Xerosis cutis; L84 Corns and callosities; B35.1 Tinea unguium
CPT/HCPCS: 11056; 11721

== ENCOUNTER 2025-01-24 10:34 | Outpatient (AMB) | payer MEDICARE, MEDICAID, SELFPAY ==
--- NOTE | 2025-01-24 10:44 | MHC.OFFVIS ---
Intake Visit Reasons: 1 yr follow up Allergies penicillin G Allergy (Severe, Verified 01/21/25 20:27) Itching latex Allergy (Intermediate, Verified 01/21/25 20:27) Itching nitrofurantoin Allergy (Intermediate, Verified 01/21/25 20:27) itching and redness (in the legs) HPI Comments Details: 69 yr old woman with MCI. Stable cognitive function with no change in memory or cognitive abilities. 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 Low back pain and body pains continue. Loses balance but does not fall. Feels left side not as good as right. has dementia. Stopped her Donepezil because of side effects. She has a history of chronic neck, shoulder, arm, and lower extremity diffuse muscle pains. She also complains of pain in the lower back, left upper buttock area. She's been having tingling and numbness in the toes of the right foot more than the left and some bilateral lower extremity pain at night right upper extremity pain. She is a 7 history of diabetes and osteoarthritis. Was switched from Gabapentin to Lyrica which helps a bit with her pains. 2 weeks back was seen in [facility] for left neck pain. It is not much better [facility] Medical History (Updated 01/24/25 @ 11:15 by Servando Rowell MD) Status post fall Elevated LFTs Pre-op examination Medicare annual wellness visit, subsequent Cyanosis of skin Respiratory tract infection Weakness of left upper extremity Left leg pain Myofascial muscle pain Bilateral knee pain Left hip pain Back pain Joint pain in both hands Osteoarthritis Encounter for well woman exam with routine gynecological exam Vulvar itching Stress incontinence Medicare annual wellness visit, subsequent Otitis media of right ear Sore throat Upper respiratory tract infection URI, acute Frequent fecal incontinence Stool incontinence Right sided abdominal pain Frozen shoulder Chest pain Calcific tendinitis of left shoulder Weakness of both lower extremities Joint pain in fingers of both hands Vitamin B12 deficiency Bilateral ankle pain Rash Right foot pain Cervical cancer screening Bronchopneumonia Chronic low back pain Bilateral foot pain Bilateral hip pain Annual physical exam Hyperlipidemia LDL goal <70 Bilateral hip pain Fibromyalgia Chronic bronchitis Vitamin D deficiency Post-thoracotomy pain syndrome COPD (chronic obstructive pulmonary disease) Depression Anxiety Type 2 diabetes mellitus with diabetic polyneuropathy Pulmonary nodules Allergic rhinitis GERD (gastroesophageal reflux disease) Morbid obesity with BMI of 40.0-44.9, adult Asthma Obstructive sleep apnea Lumbar degenerative disc disease Carcinoid tumor Coronary artery disease Benign essential hypertension Type 2 diabetes mellitus with hyperglycemia, with long-term current use of insulin Surgical History History of rectal sphincterotomy (~11/2013) History of colonoscopy (~12/2013) History of tubal ligation History of lung biopsy (~07/2016) History of esophagogastroduodenoscopy (EGD) (~10/2011) History of lobectomy of lung (~08/2016) History of cardiac cath (~07/2018) Family History Father Stroke Hypertension Diabetes Mother Diabetes Hypertension Other Arthritis Lupus Social History Household Members: Spouse Housing: Apartment Alcohol intake: never Patient Tobacco Use Status: Former Tobacco user Tobacco use type: Cigarette e-Cigarette/Vaping Use: Never Used Second Hand Smoke Exposure: Yes service: No Current occupational status: disabled Cognitive needs: No Hearing needs: No Vision needs: Yes Review of Systems Const Details: Sleep:? Difficulty getting to sleep?admits.? Difficulty maintaining sleep?admits.? Urge to move legs?denies.? Teeth grinding?denies.? Shouting or Kicking during sleep?denies.? Abnormal behavior during sleep?denies.? Excessive sleep?denies.? Snoring?denies.? Daytime sleepiness?denies.? ?? General/Constitutional:? Change in appetite?denies.? Chills?denies.? Fatigue?denies.? Fever?denies.? Weight gain?denies.? Weight loss?denies.? ?? Ophthalmologic:? Blurred vision?denies.? Diminished visual acuity?denies.? ?? ENT:? Stuffiness?denies.? Decreased hearing?denies.? Dry mouth?denies.? Ear pain?denies.? Nosebleed?denies.? Ringing in the ears?denies.? Sinus pain?denies.? Sore throat?denies.? Swollen glands?denies.? ?? Endocrine:? Cold intolerance?denies.? Excessive thirst?denies.? Frequent urination?denies.? Heat intolerance?denies.? ?? Respiratory:? Shortness of breath?denies.? Chest pain?denies.? Cough?denies.? ?? Breast:? Breast lump?denies.? Nipple discharge?denies.? ?? Cardiovascular:? Chest pain at rest?denies.? Chest pain with exertion?denies.? Claudication?denies.? Dizziness?denies.? Fluid accumulation in the legs?denies.? Irregular heartbeat?denies.? Palpitations?admits.? ?? Gastrointestinal:? Abdominal pain?denies.? Constipation?denies.? Diarrhea?denies.? Difficulty swallowing?denies.? Heartburn?denies.? Nausea?denies.? Rectal bleeding?denies.? ?? Hematology:? Easy bruising?denies.? Prolonged bleeding?denies.? ?? Genitourinary:? Frequent urination?denies.? Urgency?denies.? Incontinence?denies.? Erectile Dysfunction?denies.? ?? Musculoskeletal:? Neck pain?admits.? Back pain?admits.? Muscle aches?admits.? Painful joints?denies.? Sciatica?denies.? Weakness?admits.? ?? Podiatric:? Difficulty walking?denies.? Foot numbness?denies.? ?? Neurologic:? Difficulty swallowing?denies.? Balance difficulty?denies.? Coordination?normal.? Difficulty speaking?denies.? Dizziness?denies.? Fainting?denies.? Gait abnormality?denies.? Headache?denies.? Loss of strength?denies.? Loss of use of extremity?denies.? Low back pain?denies.? Memory loss?admits.? Seizures?denies.? Tics?denies.? Tingling/Numbness?denies.? Transient loss of vision?denies.? Tremor?denies.? ?? Psychiatric:? Anxiety?denies.? Auditory/visual hallucinations?denies.? Delusions?denies.? Depressed mood?admits.? Stressors?denies.? Substance abuse?denies.? Suicidal thoughts?denies.? ?? Musc Reports back pain Neuro Reports memory loss Psych Reports memory loss Physical Exam Neuro Other: Neurological: ? Abnormal neurological findings:??none.? Mental Status:?alert and oriented X 3,?Normal attention, orientation, memory and affect.? Cranial Nerves:?Pupils are equal, round and reactive to light. Fundoscopy shows normal disc bilaterally. External occular muscles are intact. Visual aggarwal are full, no ptosis. Face is symmetrical, no facial weakness or droop. Facial sensations are normal. Tongue protrudes in midline. Palate elevates symmetrically. Shoulder shrugging is normal..? Motor Examination:?Normal muscle tone, bulk and strength,?No atrophy or fasciculations,?No drift of the extended upper extremities,?Deep tendon reflexes are 2+?,?Plantars are flexor?.? Straight Leg Raising:?90 degrees.? Sensory Exam:?Normal light touch, temperature, pinprick, vibration and joint-position sensations?,?Rhomberg sign is absent.? Coordination:?no ataxia,?no titubation,?auztex-ag-cmce, tsvq-ghcn-siyl test and rapid alternating movements were normal.? Gait Exam:?Within normal limits.? Cerebellar Signs:?Zsazsy-sz-netp and riug-sf-ldqo is normal,?no dysdiadochokinesia?.? Extrapyramidal System:?No tremor, rigidity with normal facial expressions,?No bradykinesia, no bradyphrenia. Normal arm swing and posture. No propulsion or retropulsion.? Speech:?Normal,?no dysphasia or dysarthria..? Mini Mental Status Exam: ? Level of Consciousness:?Alert.? Orientation:?Knows correct year, month, date, day and season,?Knows correct city, county and state. Knows correct location and floor.? Registration:?Able to register 3 objects.? Attention:?Serial 7's performed accurately.? Recall:?Able to recall 3 out of 3 objects.? Language:?Normal spontaneous speech, fluency, repetition,naming, comprehension, reading and writing.? Total Score:?30/30.? Assessment & Plan Assessment & Plan (1) MCI (mild cognitive impairment) with memory loss: Comment: 02/09/18 EEG- WNL 03/10/18 CT: No acute intracranial abnormality. Mild global cerebral volume loss. Large right mastoid effusion. Labs normal. Code(s): G31.84 - Mild cognitive impairment of uncertain or unknown etiology Category: Medical (2) Lumbar radiculopathy: Comment: Sedrate 23, CPK 220, HESHAM 1 NCV/EMG LE 05/26/17 Normal motor and sensory nerve conduction velocities in the lower extremities. Unchanged since last NCV/EMG done in 2016. Normal EMG in the right L4-S1 innervated muscles. Code(s): M54.16 - Radiculopathy, lumbar region Category: Medical (3) Lumbar degenerative disc disease: Code(s): M51.36 - Other intervertebral disc degeneration, lumbar region Category: Medical (4) Obstructive sleep apnea: Code(s): G47.33 - Obstructive sleep apnea (adult) (pediatric) Category: Medical (5) Fibromyalgia: Code(s): M79.7 - Fibromyalgia Category: Medical (6) Cervical sprain: Code(s): S13.9XXA - Sprain of joints and ligaments of unspecified parts of neck, initial encounter Category: Medical Qualifiers: Encounter type: initial encounter Qualified Code(s): S13.9XXA - Sprain of joints and ligaments of unspecified parts of neck, initial encounter Plan Continue current meds. PT for neck. Cyclobenzaprine 10mg tid, Diclofenac sod. 75 mg bid x 14 days Orders: Orders PT Evaluation and Treatment Today S13.9XXA - Sprain of joints and ligaments of unspecified parts of neck, initial encounter Medications: New diclofenac sodium 75 mg PO BID 30 tabs 0RF 15 days cyclobenzaprine 10 mg PO TID 90 tabs 0RF 30 days Refilled amitriptyline 25 mg PO BEDTIME 90 tabs 1RF 90 days Coding Level of Care Code Est Pt Level 4 (66609) Diagnoses MCI (mild cognitive impairment) with memory loss G31.84 Lumbar radiculopathy M54.16 Lumbar degenerative disc disease M51.36 Obstructive sleep apnea G47.33 Fibromyalgia M79.7 Neck sprain, initial encounter S13.9XXA Encounter type: initial encounter
--- OUTSIDE RECORDS SUMMARY | 2025-01-24 12:40 | XMS_ITS | Clinical Summary ---
Author Organization [facility] Address [address] [place] [address] Phone Care Team Providers Care Cad Engineer Name Role Phone Leroy Sanchez MD Primary Care Provider [phone] Allergies Active Allergy Reactions Criticality Noted Date [...] up to 14 days. 28 tablet 5 Active lidocaine (LIDODERM) 5 % patch Apply 1 patch topically 1 (one) time each day. Remove & discard patch within 12 hours or as directed by MD. 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 Plan from our standpoint will be for a 1 year follow-up CT scan of the chest and a visit in this office after that. All questions were answered. This visit was done through the video plugging machine operator services. Chronic obstructive pulmonar y disease ([facility] V24, [facility] V28) 09/29/2016 Obstructive sleep apnea syndrome 09/29/2016 Overview (12/23/2023): [facility] Home Polysomnogram: Date 05/17/2017; AHI 6, Unclassified apneas 0; Obstructive apneas 0; Central apneas 0; Mixed apneas 0; hypopneas 37; average oxygen saturation 94% (lowest 82% without saturations <88% for 5% or more of study) - Obstructive Sleep Apnea - mild; all hypopneas; no sleep related hypoventilation by 2018 home polysomnogram. Depression 04/04/2012 DM2 (diabetes mellitus, type 2) ([facility] V24, [facility] V28) 04/04/2012 Hyperlipidemia with target LDL less than 70 03/16 Overview (12/23/2023): IMO update Hypertension 04/04/2012 LBBB (left bundle branch block) 04/04/2012 Lumbar disc disease 04/04/2012 Resolved Problems Problem Noted Date Diagnosed Date Resolved Date Anxiety 04/04/2012 12/23/2023 Encounters Date Type Department Care Team Description 01/10/2025 5:04 AM EDT - 01/10/2025 8:10 AM EDT Emergency [facility] Emergency [address] [place] [id number] Alicia Cunningham MD Cervical paraspinal muscle spasm [...] < 70 DM2 (diabetes mellitus, type 2) ([facility] V24, [facility] V28) 04/04/2012 DX:DM2 (diabetes mellitus, t ype 2) ([facility]) Lumbar disc disease 04/04/2012 DX:Lumbar di sc disease Depression 04/04/2012 DX:Depression Anxiety 04/04/2012 DX:Anxiety Obesity 04/04/2012 DX:Obesity LBBB (left bundle branch block) 04/04/2012 DX:LBBB (left bundle branch block) Emphysema lung ([facility] V24, [facility] V28) DX:Emphysema lung ([facility]) Fibromyalgia DX:Fibromyalgia Arthritis DX:Arthritis Family History Medical [...] 10:00 AM EST Consult Orthopedic Surgery - [place] [address] [facility] [address] [place] [address] Evangelista Reddy, DPM 175 [facility] [address] [place] [address] Health Maintenance Due Date Last Done [...] Test 02/28/2022 Depression Screening 03/15/2024 COVID-19 Vaccine ( season) 2024 11/11/2023, 02/18/2023, 12/17/2021, Additional history [...] Procedure Name Priority Date/Time Associated Diagnosis Comments [facility] SCREENING DIGITAL Routine 06/16/2023 11:59 AM EDT Encounter for screening mammogram for malignant neoplasm of breast from Last 3 Months or Most Recently Relevant to Health Maintenance Results * [facility] SCREENING [facility] (06/16/2023 11:59 AM EDT) Anatomical Region Laterality Modality Mammography 06/16/2023 10:3 6 AM EDT Narrative 06/16/2023 11:59 AM EDT [facility] Diagnostic Imaging Department [address] [place], [place] [address] Patient: SAHUPATO I /Age/Sex: 1955 67 - F Unit#: [id number] Location/Status: SPDIMAM/REG CLI Mnemonic[facility] Order[facility] Physician: LEROY SANCHEZ MD [facility] Screening Digital - 06/16/23 - 1106 Report Status:Signed EXAM: [facility] Screening Digital EXAM DATE AND TIME: 06/16/2023 11:07 AM HISTORY: Annual screening COMPARISON: Multiple exams dating back to 2015 TECHNIQUE: Bilateral digital breast tomosynthesis was performed in the CC and MLO projections. Computer aided detection with [employer] 3D 3.1 was employed. TISSUE DENSITY: b. [...] Procedure Note Wally Moeller MD - 11/01/2023 [facility] Diagnostic Imaging Department [address] [place] [address] Patient: PATO SAHUO.B./Age/Sex: 1955 - 67 - F Unit#: [id number] Location/Status: SPDIMAM/REG CLI Mnemonic[facility] Ordering Physician: LEROY SANCHEZ MD [facility] Screening Digital - 06/16/23 - 1106 Report Status:Signed EXAM: [facility] Screening Digital EXAM DATE AND TIME: 06/16/2023 11:07 AM HISTORY: Annual screening COMPARISON: Multiple exams dating back to 2016 TECHNIQUE: Bilateral digital breast tomosynthesis was performed in the CCand MLO projections. Computer aided detection with [employer] 3D 3.1was employed. TISSUE DENSITY: b. There [...] MEDICARE ADVANTAGE MEDICAID - [place] Care Teams Cad Engineer Relationship Specialty Start Date End Date Leroy Sanchez MD [address] [place] [address] [address] [place] PCP - General Internal Medicine 11/27/11
--- OUTSIDE RECORDS SUMMARY | 2025-01-24 12:40 | XMS_ITS | Patient Health Record ---
Author Organization [facility] Address [address] [place] [address] Care Team Providers Care Cardroom Hand Name Role Phone Juventino CHOPRA [place] Primary Care Provider Jeffrey Gerard [phone] Reason For Referral No Information Medications Medication [...] Status Risk Notes Problem Blood in stool (378594727) Blood in stool (578.1) Active confirmed Problem Constipation (05512648) Constipation (564.00) Active confirmed Problem Gastroesophageal reflux disease (396127911) GERD (gastroesophage al reflux disease) (530.81) Active confirmed Plan Of Treatment Future Test Test Name Order Date COLONOSCOPY 11/14/2013 Insurance Providers Payer Name Payer Address Payer Phone Subscriber Number Group Number Insured Name Patient Relationship to Insured Coverage Start Date Coverage End Date [facility] [address] [place] [phone] [id number] PATO HAYNES Self - patient is the insured Medical (General) History Medical History History ICD Code NIDDM Asthma Denies [place],CVA,renal disease EGD in 10/[address] RobledoZhhjgc-djy-swlxmw gastric bx-neg H.pylori HTN Had a sleep study in 10/2013-awaiting res ults Neg GB U/S in 09/2013 Depression Hyperlipidemia Surgical History Surgery Date(Month/Year) tubal ligation ear surgery
== END 2025-01-24 11:19 | disposition home or self-care (01) ==
LOC: HO.HSM 10:35
PROVIDERS: PCP Internal Medicine; Visit Provider Psychiatry & Neurology Neurology
DX: G31.84 Mild cognitive impairment of uncertain or unknown etiology (principal); M54.16 Radiculopathy, lumbar region; M51.369 Other intervertebral disc degeneration, lumbar region without mention of lumbar back pain or lower extremity pain; G47.33 Obstructive sleep apnea (adult) (pediatric); M79.7 Fibromyalgia; S13.9XXA Sprain of joints and ligaments of unspecified parts of neck, initial encounter
CPT/HCPCS: 99214

== ENCOUNTER → 2025-01-24 10:34 | Outpatient (BNVA) | payer MEDICARE, MEDICAID, SELFPAY | PROVIDERS: PCP Internal Medicine; Visit Provider Psychiatry & Neurology Neurology | DX: G47.33 Obstructive sleep apnea (adult) (pediatric) (principal); G31.84 Mild cognitive impairment of uncertain or unknown etiology; M54.16 Radiculopathy, lumbar region; M51.360 Other intervertebral disc degeneration, lumbar region with discogenic back pain only; M79.7 Fibromyalgia; S13.9XXA Sprain of joints and ligaments of unspecified parts of neck, initial encounter; R20.0 Anesthesia of skin; R20.2 Paresthesia of skin; Z09 Encounter for follow-up examination after completed treatment for conditions other than malignant neoplasm | CPT/HCPCS: 99212 ==

== ENCOUNTER 2025-03-14 13:38 | Outpatient (REF) | payer MEDICARE, MEDICAID, SELFPAY ==
--- NOTE | ~2025-03-14 | US_ITS ---
CLINICAL HISTORY: E11.42 - Type 2 diabetes mellitus with diabetic polyneuropathy --- Additional Notes or Special Instructions: Please check ABIs well as PVR pressures of toes bilateral feet. Ankle-brachial index Comparison: None provided Findings: Right brachial artery 163 mmHg Right posterior tibial artery 202 mmHg Right dorsalis pedis artery 205 mmHg Left brachial artery 166 mmHg Left posterior tibial artery 200 mmHg Left dorsalis pedis artery 200 mmHg Impression: 1. Right BEBETO 1.2, normal 2. Left BEBETO 1.2, normal This document has been electronically signed by: Akhil Julian MD on 03/15/2025 21:29:03
--- OUTSIDE RECORDS SUMMARY | 2025-03-14 15:00 | XMS_ITS | Clinical Summary ---
Author Organization [facility] Address [address] [place] [address] Phone Care Team Providers Care Clinical Trial Specialist Name Role Phone Leroy Sanchez MD [...] to 14 days. 28 tablet 5 Active Active Problems Problem Noted Date Diagnosed [...] being seen in a pain clinic at [place]. Plan from our standpoint will be for a 1 year follow-up CT scan of the chest and a visit in this office after that. All questions were answered. This visit was done through the video interpreter and translator services. Chronic obstructive pulmonary disease 09/29/2016 Obstructive sleep apnea syndrome 09/29/2016 Overview (12/23/2023): [facility] Home Polysomnogram: Date 05/17/2017; AHI [...] EDT - 01/10/2025 8:10 AM EDT Emergency [facility] Emergency [address] [place] [id number] Alicia Cunningham MD Cervical paraspinal muscle spasm [...] < 70 DM2 (diabetes mellitus, type 2) ([facility]24, [facility]) 04/04/2012 DX:DM2 (diabetes mellitus, t ype 2) ([facility]) Lumbar disc disease 04/04/2012 DX:Lumbar di sc disease Depression 04/04/2012 DX:Depression Anxiety 04/04/2012 DX:Anxiety Obesity 04/04/2012 DX:Obesity LBBB (left bundle branch block) 04/04/2012 DX:LBBB (left bundle branch block) Emphysema lung ([facility] V24, [facility] V[facility]) DX:Emphysema lung ([facility]) Fibromyalgia DX:Fibromyalgia Arthritis DX:Arthritis Family History Medical [...] Information Value Date Recorded Sex Assigned at Female 02/21/2025 11:29 AM EST Legal Sex Female 12:37 PM EST Gender Identity Female 02/21/2025 11:29 AM EST Sexual Orientation Not on file Last Filed Vital Signs [...] Care Team (Late st Contact Info) Description 03/23/2025 11:00 AM EST Appointment [facility] CT Scan [address] [place] [phone] 04/05/2025 11:15 AM EST Office Visit Thoracic Surgery - [place] [address] [facility] [address] [place] [address] Lavern Felton PA [address] [place] [address] 04/26/2025 9:30 AM EST Consult Orthopedic Surgery - [place] [address] [address] Evangelista Reddy, DPM [address] [address] Health Maintenance Due Date Last Done Comments Diabetes: Annual GFR (Glomerular Filtration Rate) 1955 Drug Screen 1955 Non-Opioid Controlled Substance Agreement 1955 Diabetes: Annual Foot Exam 07/09/1965 Diabetes: [...] Procedure Name Priority Date/Time Associated Diagnosis Comments [facility] SCREENING DIGITAL Routine 06/16/2023 11:59 AM EDT Encounter for screening mammogram for malignant neoplasm of breast from Last 3 Months or Most Recently Relevant to Health Maintenance Results * [facility] SCREENING DIGITAL (06/16/2023 11:59 AM EDT) Anatomical Region Laterality Modality Mammography 06/16/2023 10:3 6 AM EDT Narrative 06/16/2023 11:59 AM EDT [facility] Diagnostic Imaging Department [address] [place] [address] Patient: SAHUPATO I /Age/Sex: 1955 - 67 - F Unit#: [id number] Location/Status: SPDIMAM/REG CLI Mnemonic/Ordering Site: [facility] Ordering Physician: LEROY SANCHEZ MD [facility] Screening Digital - 06/16/23 - 1106 Report Status:Signed EXAM: [facility] Screening Digital EXAM DATE AND TIME: 06/16/2023 11:07 AM HISTORY: Annual screening COMPARISON: Multiple exams dating back to 2015 TECHNIQUE: Bilateral digital breast tomosynthesis was performed in the CC and MLO projections. Computer aided detection with [employer] 3D 3.1 was employed. TISSUE DENSITY: b. [...] Procedure Note Wally Moeller MD - 11/01/2023 [facility] Diagnostic Imaging Department [address] [place] [address] Patient: PATO SAHU/Age/Sex: 1955 - 67 - F Unit#: [id number] Location/Status: SPDIMAM/REG CLI Mnemonic/Ordering Site: [facility] Ordering Physician: LEROY SANCHEZ MD [facility] Screening Digital - 06/16/23 - 1106 Report Status:Signed EXAM: [facility] Screening Digital EXAM DATE AND TIME: 06/16/2023 11:07 AM HISTORY: Annual screening COMPARISON: Multiple exams dating back to 2016 TECHNIQUE: Bilateral digital breast tomosynthesis was performed in the CCand MLO projections. Computer aided detection with [employer] 3D 3.1was employed. TISSUE DENSITY: b. There [...] Date/Time: 06/16/23 1158 Sign date/Time: 06/16/23 1159 us Leroy Sanchez MD IMG BI PROCEDURES Final Resu lt from Last 3 Months or Most Recently Relevant to Health Maintenance Insurance [employer] MEDICARE ADVANTAGE MEDICAID - [place] Care Teams Clinical Trial Specialist Relationship Specialty Start Date End Date Leroy Sanchez MD [address] [place] [address] Dr [address] [place], [place] PCP - General Internal Medicine 11/27/11
--- OUTSIDE RECORDS SUMMARY | 2025-03-14 15:00 | XMS_ITS | Patient Health Record ---
Author Organization [facility] Address [address] [place] [address] Care Team Providers Care Human Resources Assistant Manager Name Role Phone Juventino CHOPRA [place] Primary Care Provider Jeffrey Gerard [phone] Reason For Referral No Information Medications Medication SIG (Take, Route, Frequency, Duration) Notes Start Date End Date Status Lisinopril 40 MG Tablet 1 tablet Orally Once a day Active Metoprolol Tartrate 25 MG Tablet 1 tablet Orally Twice a day Active Colyte w Flavor Packs 240 GM Solution Reconstituted as directed Orally as directed; Duration: 1 day(s) 11/14/2013 Active ProAir HFA 108 (90 Base) MCG/ACT Aerosol Solution 2 puffs as needed Inhalation every 4 hrs Active Advair HFA 115-21 MCG/ACT Aerosol 2 puffs Inhalation Twice a day Active Sertraline HCl 25 MG Tablet 1 tablet Ora lly Once a day Active metFORMIN HCl 500 MG Tablet 1 tablet wit h meals Orally Twice a day Active hydroCHLOROthiazide 25 MG Tablet 1 tablet Orally Once a day Active Aspir-81 81 MG Tablet Delaye d Release 1 tablet Orally Once a day Active Omeprazole 20 MG Capsule Delayed Release 1 capsule Orally Once a day Active Simvastatin 40 MG Tablet 1 tablet in the evening Orally Once a day Active Social History Social History Additional Details Category Social Info Options Details Miscellaneous: Marital status: Occupation: unemployed Section Notes: Nonsmoker; no alcohol Problems Problem Type SNOMED Code ICD Code Onset Dates Problem Status W/U Status Risk Notes Problem Blood in stool (195302717) Blood in stool (578.1) Active confirmed Problem Constipation (31478920) Constipation (564.00) Active confirmed Problem Gastroesophageal reflux disease (045346509) GERD (gastroesophage al reflux disease) (530.81) Active confirmed Plan Of Treatment Future Test Test Name Order Date COLONOSCOPY 11/14/2013 Insurance Providers Payer Name Payer Address Payer Phone Subscriber Number Group Number Insured Name Patient Relationship to Insured Coverage Start Date Coverage End Date MEDICAID OF [employer] [address] [place] [phone] [id number] PATO HAYNES Self - patient is the insured Medical (General) History Medical History History ICD Code NIDDM Asthma Denies [place],CVA,renal disease EGD in 10/[address] RobledoWpcrhn-nwg-kqasyt gastric bx-neg H.pylori HTN Had a sleep study in 10/2013-awaiting res ults Neg GB U/S in 09/2013 Depression Hyperlipidemia Surgical History Surgery Date(Month/Year) tubal ligation ear surgery
== END 2025-03-14 13:39 | disposition home or self-care (01) ==
LOC: HO.US 13:38
PROVIDERS: PCP Internal Medicine; Visit Provider Student in an Organized Health Care Education/Training Program
DX: E11.42 Type 2 diabetes mellitus with diabetic polyneuropathy (principal); R23.0 Cyanosis; Z79.4 Long term (current) use of insulin
CPT/HCPCS: 93923

== ENCOUNTER → 2025-03-14 13:40 | Outpatient (BNV) | payer MEDICARE, MEDICAID, SELFPAY | PROVIDERS: PCP Internal Medicine; Visit Provider Radiology Diagnostic Radiology | DX: R20.2 Paresthesia of skin (principal) | CPT/HCPCS: 93923 ==